=== PATIENT | female | born 1955 | race American Indian/Alaskan Native ===

== ENCOUNTER 2017-02-24 11:11 | Inpatient (IN) | payer MEDICARE ==
[2017-02-24] MEDS ORDERED: NACL 0.9% 500 ML 500 ML ONE (11:17)
[2017-02-24] MEDS ORDERED: LOPRESSOR IV ONE ×2 (11:17→11:28)
[2017-02-24] MEDS ORDERED: CARDIZEM ONE (11:28)
[2017-02-24] MEDS ORDERED: NACL 0.9% 500 ML 500 ML IV ONE ×2 (11:28→13:37)
--- NOTE | 2017-02-24 11:32 | Emergency Department Report ---
ED Palpitations HPI - General Chief Complaint: Chest Pain Stated Complaint: CHEST PAIN Time Seen by Provider: 02/24/17 11:26 Source: patient, EMS Mode of arrival: Stretcher Limitations: No Limitations - History of Present Illness MD Complaint: rapid heart beat, "heart racing", "skipped beats", palpitations, irregular heart beat, atrial fibrillation -: Sudden Context: occured during rest Arrythmia History: atrial fibrillation Associated Symptoms: chest pain, shortness of breath. denies: syncope, near- syncope, nausea/vomiting, anxiety, diaphoresis, cough, parasthesias - Related Data Home Medications Medication Instructions Recorded Confirmed Last Taken Carvedilol [Coreg] 12.5 mg PO BID 10/20/15 02/24/17 Unknown Clopidogrel [Plavix] 75 mg PO QDAY 10/20/15 02/24/17 Unknown Gabapentin [Neurontin] 300 mg PO BID 10/20/15 02/24/17 Unknown Amlodipine Besylate [Norvasc] 10 mg PO DAILY 02/24/17 02/24/17 Unknown Apixaban [Eliquis] 5 mg PO DAILY 02/24/17 02/24/17 Unknown ISOSORBIDE MONOnitrate [Imdur ER] 30 mg PO DAILY 02/24/17 02/24/17 Unknown Lisinopril [Zestril] 5 mg PO QDAY 02/24/17 02/24/17 Unknown Nitroglycerin [Nitrostat] 0.4 mg SL Q5M PRN 02/24/17 02/24/17 Unknown cloNIDine [Catapres] 0.2 mg PO BID 02/24/17 02/24/17 Unknown Allergies Allergy/AdvReac Type Severity Reaction Status Date / Time apple AdvReac Hives Verified 10/31/15 14:57 shell fish Allergy Swelling Uncoded 10/31/15 14:57 ED Review of Systems ROS: Stated complaint: CHEST PAIN Other details as noted in HPI Constitutional: denies: chills, fever Eyes: denies: eye pain, eye discharge, vision change ENT: denies: ear pain, throat pain Respiratory: denies: cough, shortness of breath, wheezing Cardiovascular: denies: chest pain, palpitations Endocrine: no symptoms reported Gastrointestinal: denies: abdominal pain, nausea, diarrhea Genitourinary: denies: urgency, dysuria, discharge Musculoskeletal: denies: back pain, joint swelling, arthralgia Skin: denies: rash, lesions Neurological: denies: headache, weakness, paresthesias Psychiatric: denies: anxiety, depression Hematological/Lymphatic: denies: easy bleeding, easy bruising ED Past Medical Hx - Past Medical History Hx Hypertension: Yes Hx CVA: Yes Hx Heart Attack/AMI: Yes Hx Congestive Heart Failure: Yes Hx Diabetes: Yes Hx Renal Disease: Yes (RENAL INSUFFICIENCY) Hx Psychiatric Treatment: Yes (BIPOLAR/SCHIZOPHRENIA) Hx COPD: Yes Additional medical history: HIGH CHOLESTEROL - Surgical History Hx Coronary Stent: Yes (x 2 in May 2015) Additional Surgical History: stent placement x 2 in 2014 - Social History Smoking Status: Light Tobacco Smoker - Medications Home Medications: Home Medications Medication Instructions Recorded Confirmed Last Taken Type Carvedilol [Coreg] 12.5 mg PO BID 10/20/15 02/24/17 Unknown History Clopidogrel [Plavix] 75 mg PO QDAY 10/20/15 02/24/17 Unknown History Gabapentin [Neurontin] 300 mg PO BID 10/20/15 02/24/17 Unknown History Amlodipine Besylate [Norvasc] 10 mg PO DAILY 02/24/17 02/24/17 Unknown History Apixaban [Eliquis] 5 mg PO DAILY 02/24/17 02/24/17 Unknown History ISOSORBIDE MONOnitrate [Imdur ER] 30 mg PO DAILY 02/24/17 02/24/17 Unknown History Lisinopril [Zestril] 5 mg PO QDAY 02/24/17 02/24/17 Unknown History Nitroglycerin [Nitrostat] 0.4 mg SL Q5M PRN 02/24/17 02/24/17 Unknown History cloNIDine [Catapres] 0.2 mg PO BID 02/24/17 02/24/17 Unknown History ED Physical Exam - General Limitations: No Limitations General appearance: alert, in no apparent distress - Head Head exam: Present: atraumatic, normocephalic - Eye Eye exam: Present: normal appearance - ENT ENT exam: Present: mucous membranes moist - Neck Neck exam: Present: normal inspection - Respiratory Respiratory exam: Present: normal lung sounds bilaterally. Absent: respiratory distress, wheezes, rales, rhonchi, stridor - Cardiovascular Cardiovascular Exam: Present: tachycardia, irregular rhythm. Absent: systolic murmur, diastolic murmur, rubs, gallop - GI/Abdominal GI/Abdominal exam: Present: soft, normal bowel sounds - Extremities Exam Extremities exam: Present: normal inspection - Back Exam Back exam: Present: normal inspection - Neurological Exam Neurological exam: Present: alert, oriented X3 - Psychiatric Psychiatric exam: Present: normal affect, normal mood - Skin Skin exam: Present: warm, dry, intact, normal color. Absent: rash ED Course Vital Signs 02/24/17 02/24/17 02/24/17 11:20 11:27 11:35 Temperature 98.3 F Pulse Rate 140 H 129 H 140 H Respiratory 22 Rate Blood Pressure 110/78 114/81 117/67 Blood Pressure [Left] O2 Sat by Pulse 100 Oximetry 02/24/17 02/24/17 02/24/17 12:00 13:13 13:15 Temperature Pulse Rate 104 H 136 H 124 H Respiratory 18 17 16 Rate Blood Pressure 93/71 Blood Pressure 114/78 [Left] O2 Sat by Pulse 99 99 96 Oximetry 02/24/17 02/24/17 02/24/17 13:21 13:25 13:29 Temperature Pulse Rate 118 H 133 H 143 H Respiratory 19 19 Rate Blood Pressure 96/70 96/70 113/78 Blood Pressure [Left] O2 Sat by Pulse 99 98 Oximetry 02/24/17 13:30 Temperature Pulse Rate 89 Respiratory 22 Rate Blood Pressure 105/69 Blood Pressure [Left] O2 Sat by Pulse 97 Oximetry ED Medical Decision Making - Lab Data Result diagrams: 02/24/17 12:03 - EKG Data Interpretation: other (a-fib with rvr) - Radiology Data Radiology results: report reviewed, image reviewed - Medical Decision Making patient stable after doses of metoprolol and dilt here in the ER, consulted cardiolgoy who are seeing the patient , cbc and coags within normal limits , waiting on chemistry and troponin,. HR now at 90 to 100/min , bp well maintained , Spoke to hospitalist and agree with plan for admission. Critical care time in (mins) excluding proc time.: 35 Critical care attestation.: If time is entered above; I have spent that time in minutes in the direct care of this critically ill patient, excluding procedure time. ED Disposition Clinical Impression: Afib, Hypertension, Acute chest pain Disposition: OP ADMITTED IP TO THIS HOSP Is pt being admited?: Yes Does the pt Need Aspirin: No Condition: Fair Instructions: Hypertension (ED), Chest Pain (ED) Time of Disposition: 14:19
[2017-02-24] MEDS ORDERED: CARDIZEM IV ONE ×2 (11:35→13:29)
[2017-02-24] MEDS ORDERED: ZOFRAN ONE (11:38)
[2017-02-24] MEDS ORDERED: MORPHINE ONE (11:38)
--- NOTE | 2017-02-24 11:39 | XRay Report ---
AP CHEST: HISTORY: Dysrhythmia AP view of the chest demonstrates a normal mediastinal and cardiac contour with clear lungs and normal bony and soft tissue structures. IMPRESSION: Unremarkable AP chest. No change since 10/19/15.
[2017-02-24] MEDS ORDERED: MORPHINE IV ONE (11:50)
[2017-02-24] MEDS ORDERED: ZOFRAN IV ONE (11:50)
[2017-02-24 12:36] LABS: INR 1.29 (0.87-1.13)
[2017-02-24 12:37] LABS: Partial Thromboplastin Time 48.6 Sec. (24.2-36.6)
[2017-02-24 12:49] LABS: Mean Corpuscular HGB Conc 30 % (30-34); Mean Corpuscular Hemoglobin 28 pg (28-32); Mean Corpuscular Volume 94 fl (79-97); Platelet Count 239 K/mm3 (140-440); Red Blood Count 4.41 M/mm3 (3.65-5.03); Red Cell Distribution Width 17.4 % (13.2-15.2); White Blood Count 12.3 K/mm3 (4.5-11.0)
[2017-02-24 12:51] LABS: Hematocrit 41.5 % (30.3-42.9); Hemoglobin 12.5 gm/dl (10.1-14.3)
--- NOTE | 2017-02-24 13:59 | Admit Criteria Form ---
Admission Criteria Documentation: TELEMETRY CARE Telemetry Admission Guidelines (Place 'X' for any and all applicable criteria): Admission to telemetry [A] may be indicated for ANY ONE of the following(1)(2)(3 )(4)(5): [X ]I. Cardiac disease, including ANY ONE of the following (9)(10)(11)(12)( 13): [ ]a) Postacute OK [ ]b) Low-risk patients with ST-segment elevation OK who have undergone successful percutaneous coronary intervention [ ]c) Unstable angina [ ]d) Suspected OK (until it is ruled out) [ ]e) Post cardiac surgery (first 48 to 72 hours unless complications occur) [X ]f) Acute arrhythmias (including significant tachycardia or bradycardia) [B] [ ]g) Firing of an implantable cardioverter defibrillator [C] [ ]h) Suspected pacemaker or implantable cardioverter defibrillator malfunction (10) [ ]i) New administration or adjustment of an antiarrhythmic drug [D ] [ ]j) Child admitted for acute congestive heart failure [ ]j) Long QT syndrome [ ]k) Advanced heart block (eg, second-degree Mobitz type II, third- degree heart block) [ ]l) Acute myocarditis or pericarditis [ ]m) Short-term (ambulatory or inpatient) monitoring after a cardiac procedure as indicated by ANY ONE of the following [E]: [ ]i) Electrophysiologic studies [ ]ii) Percutaneous coronary intervention with stent placement [ ]iii) Pacemaker placement with cardiac conduction defect [ ]iv) Implantable cardiac defibrillator placement [ ]II. Drug overdose or poisoning with substance that causes arrhythmias or QT prolongation (eg, phenothiazines, sympathomimetic agents, cyclic antidepressants, digitalis, antiarrhythmic drugs)(15) [ ]III. Short-term (ambulatory or inpatient) monitoring after therapeutic or diagnostic procedure requiring conscious sedation or anesthesia (eg, endoscopy, elective cardioversion) [ ]IV. Acute cerebrovascular even[F](18) [ ]V. Massive blood transfusion (eg, at least 10 units of packed red blood cells in 24 hours) [ ]. Variceal bleeding after endoscopy, sclerotherapy, or IV vasopressin [ ]VII. Uncorrected electrolyte abnormalities associated with an increased risk of dangerous arrhythmia [G]; examples include [ ]a) Hyperkalemia with attributable ECG changes [ ]b) Potassium greater than 6.5 mmol/L (mEq/L) in a patient without history of chronic renal disease [ ]c) Prolonged QT attributed to hypokalemia, hypomagnesemia, or hypocalcemia [ ]VIII.Unexplained syncope or other neurologic event suspected of being due to arrhythmia due to a finding that increases risk; examples include(19)(20)(21): [ ]a) High-risk ECG findings (eg, bifascicular block, bradycardia, abnormal QT interval, ventricular pre- excitation) [ ]b) History of previous syncope due to arrhythmia [ ]c) Abnormal ventricular function (eg, reduced ejection fraction ) [ ]d) Exertional or supine syncope [ ]e) Concerning syncope characteristics (eg, sudden loss of consciousness without prodrome) [ ]f) Family history of sudden [ ]g) Use of arrhythmogenic medication [ ]h) Suspected cardiac ischemia [ ]i) Known channelopathy (eg, long QT syndrome, Brugada syndrome, or catecholaminergic paroxysmal ventricular tachycardia) [ ]j) Known structural heart disease (eg, hypertrophic cardiomyopathy , severe valvular disease) [ ]k) Palpitations preceding syncope The original [employer] content created by [employer] has been revised. The portions of the content which have been revised are identified through the use of italic text or in bold, and [facility] has neither reviewed nor approved the modified material. All other unmodified content is copyright [employer]. Please see references footnoted in the original [employer] edition 2016 Admission Criteria Met: Yes
--- NOTE | 2017-02-24 14:26 | History and Physical Report ---
History of Present Illness Chief complaint: chest palpitations History of present illness: 61 YO Female with HTN, CVA, OK, CHF, Atrial Fib, DM, CKD, COPD, HLD, Bipolar Disorder, CAD S/P Stent Placement presents to ED for evaluation. Pt states that she has been experienced a "racing heart" today. Pt symptoms accompanied by chest pain and shortness of breath. Pain is 6/10, substernal, nonradiating, not worsened with exertion, or relieved with rest. Pt denies productive cough, leg swelling, calf pain, NVD, syncope, dizziness, or recent ill contacts. Past History Past Medical History: acute OK, atrial fib, CAD, COPD, diabetes, heart failure, hypertension, hyperlipidemia Past Surgical History: Other (stent placement) Social history: , smoking. denies: alcohol abuse, prescription drug abuse, IV drug use Family history: diabetes, hypertension Medications and Allergies Allergies Allergy/AdvReac Type Severity Reaction Status Date / Time apple AdvReac Hives Verified 10/31/15 14:57 shell fish Allergy Swelling Uncoded 10/31/15 14:57 Home Medications Medication Instructions Recorded Confirmed Last Taken Type Carvedilol [Coreg] 12.5 mg PO BID 10/20/15 02/24/17 Unknown History Clopidogrel [Plavix] 75 mg PO QDAY 10/20/15 02/24/17 Unknown History Gabapentin [Neurontin] 300 mg PO BID 10/20/15 02/24/17 Unknown History Amlodipine Besylate [Norvasc] 10 mg PO DAILY 02/24/17 02/24/17 Unknown History Apixaban [Eliquis] 5 mg PO DAILY 02/24/17 02/24/17 Unknown History ISOSORBIDE MONOnitrate [Imdur ER] 30 mg PO DAILY 02/24/17 02/24/17 Unknown History Lisinopril [Zestril] 5 mg PO QDAY 02/24/17 02/24/17 Unknown History Nitroglycerin [Nitrostat] 0.4 mg SL Q5M PRN 02/24/17 02/24/17 Unknown History cloNIDine [Catapres] 0.2 mg PO BID 02/24/17 02/24/17 Unknown History Review of Systems All systems: negative Cardiovascular: palpitations, shortness of breath Exam - Constitutional Vitals: Temp Pulse Resp BP Pulse Ox 98.3 F 89 22 105/69 97 02/24/17 11:27 02/24/17 13:30 02/24/17 13:30 02/24/17 13:30 02/24/17 13:30 General appearance: Present: mild distress, well-nourished - EENT Eyes: Present: PERRL ENT: hearing intact, clear oral mucosa - Neck Neck: Present: supple, normal ROM - Respiratory Respiratory effort: normal Respiratory: bilateral: diminished - Cardiovascular Rhythm: irregularly irregular Heart Sounds: Absent: rub, click - Extremities Extremities: pulses symmetrical, No edema Extremity abnormal: edema Peripheral Pulses: within normal limits - Abdominal General gastrointestinal: Present: soft, non-tender, non-distended, normal bowel sounds Female genitourinary: Present: normal - Integumentary Integumentary: Present: clear, warm, dry - Musculoskeletal Musculoskeletal: gait normal, strength equal bilaterally - Psychiatric Psychiatric: appropriate mood/affect, intact judgment & insight - Neurologic Neurologic: CNII-XII intact, moves all extremities Results - Labs CBC & Chem 7: 02/24/17 12:03 02/24/17 16:12 Labs: Abnormal lab results 02/24/17 02/24/17 Range/Units 12:03 12:03 WBC 12.3 H (4.5-11.0) K/mm3 RDW 17.4 H (13.2-15.2) % PT 16.0 H (12.2-14.9) Sec. INR 1.29 H (0.87-1.13) APTT 48.6 H (24.2-36.6) Sec. D-Dimer 260.88 H (0-234) ng/mlDDU Assessment and Plan - Patient Problems (1) ACS (acute coronary syndrome) Current Visit: Yes Status: Acute Plan to address problem: Cardiology consulted: Chest pain protocol. serial cardiac enzymes, ekg, telemetry monitoring, stress test in AM as per cardiology (2) Atrial fibrillation with rapid ventricular response Current Visit: Yes Status: Acute Plan to address problem: continue current therapy, rate controlled. see dominguez, cardiology team consulted. (3) Hypertension Current Visit: Yes Status: Chronic Qualifiers: Hypertension type: H Plan to address problem: monitor bp q shift, continue current therapy (4) DVT prophylaxis Current Visit: Yes Status: Acute
[2017-02-24] MEDS ORDERED: DULCOLAX PR PRN (14:27)
[2017-02-24] MEDS ORDERED: TYLENOL PO PRN (14:27)
[2017-02-24] MEDS ORDERED: DUONEB 0.5 MG-3 MG/3 ML SOLN IH PRN (14:27)
[2017-02-24] MEDS ORDERED: ZOFRAN IV PRN (14:27)
[2017-02-24] MEDS ORDERED: MILK OF MAGNESIA PO PRN (14:27)
[2017-02-24] MEDS ORDERED: NITROSTAT SL PRN (14:35)
--- NOTE | 2017-02-24 14:51 | Consultation ---
History of Present Illness Consult date: 02/24/17 Consult reason: chest pain History of present illness: This is a 61yr old woman visiting from [place] who presents to the ED with complaints of chest pain. Patient gives a history of coronary artery disease status post coronary intervention 3 months ago. She has a history of atrial fibrillation and is on eliquis for oral anticoagulation. Patient also continues to smoke. Her presenting ECG shows atrial fibrillation with rapid ventricular response. Initial set of cardiac enzymes are normal. Patient admitted to the hospital and a cardiac consultation requested for chest pain. Past History Past Medical History: atrial fib, CAD, hypertension Medications and Allergies Allergies Allergy/AdvReac Type Severity Reaction Status Date / Time apple AdvReac Hives Verified 10/31/15 14:57 shell fish Allergy Swelling Uncoded 10/31/15 14:57 Home Medications Medication Instructions Recorded Confirmed Last Taken Type Carvedilol [Coreg] 12.5 mg PO BID 10/20/15 02/24/17 Unknown History Clopidogrel [Plavix] 75 mg PO QDAY 10/20/15 02/24/17 Unknown History Gabapentin [Neurontin] 300 mg PO BID 10/20/15 02/24/17 Unknown History Amlodipine Besylate [Norvasc] 10 mg PO DAILY 02/24/17 02/24/17 Unknown History Apixaban [Eliquis] 5 mg PO DAILY 02/24/17 02/24/17 Unknown History ISOSORBIDE MONOnitrate [Imdur ER] 30 mg PO DAILY 02/24/17 02/24/17 Unknown History Lisinopril [Zestril] 5 mg PO QDAY 02/24/17 02/24/17 Unknown History Nitroglycerin [Nitrostat] 0.4 mg SL Q5M PRN 02/24/17 02/24/17 Unknown History cloNIDine [Catapres] 0.2 mg PO BID 02/24/17 02/24/17 Unknown History Active Meds: Active Medications Acetaminophen (Tylenol) 650 mg PO Q4H PRN PRN Reason: Pain MILD(1-3)/Fever >100.5/SILVA Albuterol/Ipratropium (Duoneb 0.5 Mg-3 Mg/3 Ml Soln) 1 ampul IH Q6HRT PRN PRN Reason: Wheezing Apixaban (Eliquis) 5 mg PO DAILY CHRISTEL PRN Reason: Protocol Bisacodyl (Dulcolax) 10 mg HI QDAY PRN PRN Reason: Constipation unrelieved by MOM Carvedilol (Coreg) 12.5 mg PO BID CHRISTEL Clonidine HCl (Catapres) 0.2 mg PO BID CHRISTEL Clopidogrel Bisulfate (Plavix) 75 mg PO QDAY CHRISTEL Gabapentin (Neurontin) 300 mg PO BID CHRISTEL Isosorbide Mononitrate (Imdur) 30 mg PO DAILY CHRISTEL Lisinopril (Zestril) 5 mg PO QDAY CHRISTEL Magnesium Hydroxide (Milk Of Magnesia) 30 ml PO Q4H PRN PRN Reason: Constipation Miscellaneous Medication (Amlodipine Besylate [Norvasc]) 10 mg PO DAILY CHRISTEL Nitroglycerin (Nitrostat) 0.4 mg SL Q5M PRN PRN Reason: Chest Pain Ondansetron HCl (Zofran) 4 mg IV Q8H PRN PRN Reason: N/V unrelieved by Reglan Physical Examination Vital Signs Pulse BP 140 H 110/78 02/24/17 11:20 02/24/17 11:20 General appearance: no acute distress HEENT: Positive: PERRL Neck: Positive: trachea midline Cardiac: Positive: irregularly irregular Results 02/24/17 12:03 02/24/17 12:03 Coagulation 02/24/17 Range/Units 12:03 PT 16.0 H (12.2-14.9) Sec. INR 1.29 H (0.87-1.13) APTT 48.6 H (24.2-36.6) Sec. CBC 02/24/17 Range/Units 12:03 WBC 12.3 H (4.5-11.0) K/mm3 RBC 4.41 (3.65-5.03) M/mm3 Hgb 12.5 (10.1-14.3) gm/dl Hct 41.5 (30.3-42.9) % Plt Count 239 (140-440) K/mm3 Lymph # Cash Management Clerk Garrett # Cash Management Clerk Eos # Cash Management Clerk Baso # Cash Management Clerk EKG interpretations - EKG Supraventricular dysrhythmia: atrial fibrillation Assessment and Plan Chest pain Persistent Afib on eliquis for anticoagulation as an outpatient Hx of CAD s/p recent PCI on plavix therapy Hypertension Tobacco abuse
[2017-02-24 15:22] LABS: Alanine Aminotransferase 8 units/L (7-56); Albumin 3.4 g/dL (3.9-5); Albumin/Globulin Ratio 1.2 %; Alkaline Phosphatase 53 units/L (35-129); Anion Gap 26 mmol/L; BUN/Creatinine Ratio 14.61; Bilirubin,Total 0.6 mg/dL (0.1-1.2); Blood Urea Nitrogen 19 mg/dL (7-17); Carbon Dioxide 11 mmol/L (22-30); Chloride 107.2 mmol/L (98-107); Creatine Kinase 127 units/L (30-135); Creatine Kinase MB 2.2 ng/mL (0.0-4.0); Glucose 122 mg/dL (65-100); Magnesium 1.6 mg/dL (1.7-2.3); Potassium 3.7 mmol/L (3.6-5.0); Sodium 140 mmol/L (137-145); Total Protein 6.3 g/dL (6.3-8.2)
[2017-02-24 16:46] LABS: BUN/Creatinine Ratio 15.38; Calcium 8.6 mg/dL (8.4-10.2); Chloride 109.4 mmol/L (98-107); Potassium 3.2 mmol/L (3.6-5.0)
[2017-02-24] MEDS ORDERED: SODIUM CHLORIDE FLUSH SYRINGE 10 ML IV PRN (19:55)
[2017-02-24] MEDS ORDERED: PROVENTIL IH PRN (20:00)
[2017-02-24] MEDS: CATAPRES PO SCH (21:28)
[2017-02-24] MEDS: NEURONTIN PO SCH (21:28)
[2017-02-24] MEDS: COREG PO SCH (21:28)
[2017-02-24 23:10] LABS: Creatine Kinase MB 3.4 ng/mL (0.0-4.0)
[2017-02-24 23:13] LABS: Creatine Kinase 443 units/L (30-135)
[2017-02-25] MEDS: CARDIZEM PO SCH ×3 (02:28→11:55)
[2017-02-25] MEDS: MORPHINE IV PRN ×2 (05:52→11:45)
[2017-02-25] MEDS ORDERED: MAGNESIUM SULFATE IV ONE (09:19)
--- NOTE | 2017-02-25 09:23 | Discharge Summary ---
Providers - Providers Date of Admission: 02/24/17 14:27 Date of discharge: 02/25/17 Attending physician: ELIEL BRODY MD 02/24/17 Consult to Cardiac Rehabilitation [CONS] Routine Reason For Exam: Phase I Primary care physician: COMPUTER SECURITY COORDINATOR Hospitalization Reason for admission: chest pain Condition: Stable Hospital course: 61 YO Female with HTN, CVA, DC, CHF, Atrial Fib, DM, CKD, COPD, HLD, Bipolar Disorder, CAD S/P Stent Placement presents to ED for evaluation. Pt states that she has been experienced a "racing heart" today. Pt symptoms accompanied by chest pain and shortness of breath. Pain is 6/10, substernal, nonradiating, not worsened with exertion, or relieved with rest. Pt denies productive cough, leg swelling, calf pain, NVD, syncope, dizziness, or recent ill contacts. For full evaluation of the patient the patient wants a stress test which was unremarkable. Cardiology recommended medical therapy for CAD including dual oral antiplatelet platelet medication. I did also discuss the patient she states she's been having a chronic pain in her chest wall area that has been ongoing for months and this reproducible. She denies any association of shortness of breath at this time. I did provide about 15 minutes of counseling to the patient the need to quit tobacco use she verbalizes that she has cut down from 4 packs a day to 3 cigarettes daily encouraged her to continue on that pathway totally quit considered history. Discharge diagnosis * Atypical chest pain likely secondary to costochondritis * CAD * Atrial fibrillation with rapid ventricular response * Mild protein caloric malnutrition * Hypertension * Tobacco abuse * Hypokalemia * CKD * COPD * Bipolar disorder Disposition: DISCHARGED TO HOME OR SELFCARE Time spent for discharge: 35 mins Core Measure Documentation - Palliative Care Palliative Care/ Comfort Measures: Not Applicable - Core Measures Any of the following diagnoses?: none - VTE Discharge Requirements Deep Vein Thrombosis/Pulmonary Embolism Present on Admission: No Exam - Physical Exam Narrative exam: VITAL SIGNS: Reviewed. GENERAL: The patient appeared well nourished and normally developed. Vital signs as documented. HEAD: No signs of head trauma. EYES: Pupils are equal. Extraocular motions intact. EARS: Hearing grossly intact. MOUTH: Oropharynx is normal. NECK: No adenopathy, no JVD. CHEST: Chest with clear breath sounds bilaterally. No wheezes, rales, or rhonchi. CARDIAC: Regular rate and rhythm. S1 and S2, without murmurs, gallops, or rubs. VASCULAR: No Edema. Peripheral pulses normal and equal in all extremities. ABDOMEN: Soft, without detectable tenderness. No sign of distention. No rebound or guarding, and no masses palpated. Bowel Sounds normal. MUSCULOSKELETAL: Good range of motion of all major joints. Extremities without clubbing, cyanosis or edema. NEUROLOGIC EXAM: Alert and oriented x 3. No focal sensory or strength deficits. Speech normal. Follows commands. PSYCHIATRIC: Mood normal. SKIN: No rash or lesions. - Constitutional Vitals: Temp Pulse Resp BP Pulse Ox 98.2 F 49 L 18 110/64 99 02/25/17 05:17 02/25/17 08:07 02/25/17 05:17 02/25/17 05:17 02/25/17 05:17 Plan Activity: advance as tolerated, fall precautions Diet: low salt Special Instructions: record daily weights, record daily BP diary Follow up with: [facility] [Provider Group] - 7 Days PRIMARY [facility]ARE, [Primary Care Provider] - 3-5 Days Prescriptions: amLODIPine [Norvasc] 10 mg PO DAILY #30 tablet Diltiazem [Cardizem] 30 mg PO Q6HR #90 tablet
[2017-02-25] MEDS ORDERED: PLAVIX PO SCH (10:00)
[2017-02-25] MEDS ORDERED: MAGNESIUM SULFATE 2GM/50ML 2 GM/50 ML BAG IV ONE (10:00)
[2017-02-25] MEDS ORDERED: NON-FORMULARY (Amlodipine Besylate [Norvasc] 10 MG) PO SCH (10:00)
[2017-02-25] MEDS ORDERED: ELIQUIS PO SCH ×2 (10:00→12:00)
[2017-02-25] MEDS ORDERED: NORVASC PO SCH (10:00)
[2017-02-25] MEDS ORDERED: ZESTRIL PO SCH (10:00)
[2017-02-25] MEDS ORDERED: IMDUR PO SCH (10:00)
[2017-02-25] MEDS ORDERED: LEXISCAN IV ONE (10:00)
[2017-02-25] MEDS ORDERED: K-DUR PO ONE (10:00)
--- NOTE | 2017-02-25 10:22 | Query- Chest Pain ---
Dealucien Hughes____Jaimie Date: 02/25/17 Aircraft Launch And Recovery Technician/CDS:____Caleb Willskatarzyna Phone#:____[phone] Exercise your independent professional judgment when responding to query. Questions asked do not imply a particular answer is desired or expected. We greatly appreciate your clarification on this issue. Clinical Documentation States: 61 year old female was admitted on 02/24/17. The cadiology consult note states" Consult reason: chest pain. Assessment and Plan Chest pain Persistent Afib on eliquis for anticoagulation as an outpatient Hx of CAD s/p recent PCI on plavix therapy Hypertension Tobacco abuse. Rule out AR protocol, followed by a Persantin thallium stress test for further assessment of coronary artery disease and chest pain. " The H&P states " Assessment and Plan - Patient Problems (1) ACS (acute coronary syndrome) Current Visit: Yes Status: Acute Plan to address problem: Cardiology consulted: Chest pain protocol. serial cardiac enzymes, ekg, telemetry monitoring, stress test in AM as per cardiology (2) Atrial fibrillation with rapid ventricular response Current Visit: Yes Status: Acute Plan to address problem: continue current therapy, rate controlled. see dominguez, cardiology team consulted. " Please document the etiology of Chest Pain: [ ] Myocardial Infarction [ ] Pneumonia [ ] Mediastinitis [X ] Costochondritis [ ] Pulmonary Embolism [ ] Coronary Artery Disease [ ] GERD [ ] Other: [ ] Comment/Explanation: Present on Admission: [ Y] Yes (Y) [ ] Clinically undeterminable (W) [ ] No(N) Please document response in your Progress Notes and/or Discharge Summary and indicate if the condition was present on admission. MTDD
[2017-02-25] MEDS: COREG PO SCH (11:44)
[2017-02-25] MEDS: NEURONTIN PO SCH (11:44)
[2017-02-25] MEDS: CATAPRES PO SCH (11:44)
[2017-02-25 12:20] VITALS: BP 139/78
--- NOTE | 2017-02-25 14:08 | Progress Note ---
Assessment and Plan Medical therapy for coronary artery disease including dual oral antiplatelet therapy. Medical therapy for her despite atrial fibrillation including oral anticoagulation therapy. Subjective Date of service: 02/25/17 Interval history: Patient underwent a Persantine thallium stress test today, normal myocardial perfusion study. There is no further chest pain, no shortness of breath and no palpitations. Objective Vital Signs Temp Pulse Pulse Resp BP BP Pulse Ox 02/25/17 10:47 75 139/78 02/25/17 10:46 76 139/78 02/25/17 10:45 76 141/76 02/25/17 10:44 82 121/74 02/25/17 10:43 72 151/78 02/25/17 10:04 50 L 142/79 02/25/17 08:07 49 L 02/25/17 07:30 98.0 F 52 L 18 127/74 98 02/25/17 05:17 98.2 F 56 L 18 110/64 99 02/25/17 04:00 52 L 02/25/17 00:24 97.6 F 66 20 121/68 97 02/24/17 21:21 98 02/24/17 20:13 98.9 F 65 18 116/86 99 02/24/17 17:05 99.2 F 72 72 H 109/75 97 02/24/17 16:02 132 H 02/24/17 15:25 132 H 18 103/67 99 02/24/17 15:21 103 H 18 103/67 99 02/24/17 15:15 137 H 15 103/67 98 02/24/17 15:11 112 H 17 103/67 98 02/24/17 15:05 118 H 18 103/67 98 02/24/17 15:00 128 H 33 H 103/67 97 02/24/17 14:55 126 H 26 H 110/73 99 02/24/17 14:50 116 H 20 110/73 99 02/24/17 14:45 108 H 16 110/73 100 02/24/17 14:41 113 H 21 110/73 99 02/24/17 14:35 117 H 13 110/73 98 02/24/17 14:30 106 H 16 110/73 - Physical Examination General: No Apparent Distress HEENT: Positive: PERRL Neck: Positive: trachea midline Cardiac: Positive: irregularly irregular Lungs: Positive: Decreased Breath Sounds Neuro: Positive: Grossly Intact Abdomen: Positive: Soft Skin: Positive: Clear Extremities: Absent: edema - Labs and Meds Cardiac Enzymes 02/24/17 02/25/17 Range/Units 23:00 02:18 CK-MB (CK-2) 3.4 3.0 (0.0-4.0) ng/mL Comprehensive Metabolic Panel 02/24/17 Range/Units 16:12 Sodium 143 (137-145) mmol/L Potassium 3.2 L (3.6-5.0) mmol/L Chloride 109.4 H (98-107) mmol/L Carbon Dioxide 20 L D (22-30) mmol/L BUN 20 H (7-17) mg/dL Creatinine 1.3 H (0.7-1.2) mg/dL Glucose 149 H (65-100) mg/dL Calcium 8.6 (8.4-10.2) mg/dL
--- NOTE | 2017-02-26 01:54 | Treadmill Report ---
THALLIUM STRESS TEST LEFT VENTRICLE: Left ventricular chamber size is within normal. Perfusion study demonstrates homogeneous uptake of the tracer in all segments. No significant defects identified. Gated analysis was not available. CONCLUSION: Normal myocardial perfusion study. [facility]# [id number] CA/NTS
== END 2017-02-25 15:26 | disposition home or self-care (01) | DRG 206 ==
LOC: ED 11:11 → 4A 14:27
PROVIDERS: ADMIT Internal Medicine; ATTEND Internal Medicine
DX: M94.0 Chondrocostal junction syndrome [Tietze] (principal); I24.9 Acute ischemic heart disease, unspecified; E44.1 Mild protein-calorie malnutrition; F31.9 Bipolar disorder, unspecified; J44.9 Chronic obstructive pulmonary disease, unspecified; F17.200 Nicotine dependence, unspecified, uncomplicated; I48.91 Unspecified atrial fibrillation; I12.9 Hypertensive chronic kidney disease with stage 1 through stage 4 chronic kidney disease, or unspecified chronic kidney disease; N18.9 Chronic kidney disease, unspecified; I25.10 Atherosclerotic heart disease of native coronary artery without angina pectoris; E11.22 Type 2 diabetes mellitus with diabetic chronic kidney disease; I25.2 Old myocardial infarction; Z91.013 Allergy to seafood; Z91.018 Allergy to other foods; Z86.73 Personal history of transient ischemic attack (TIA), and cerebral infarction without residual deficits; Z98.61 Coronary angioplasty status; Z83.3 Family history of diabetes mellitus; Z82.49 Family history of ischemic heart disease and other diseases of the circulatory system; Z68.27 Body mass index [BMI] 27.0-27.9, adult; Z71.6 Tobacco abuse counseling
CPT/HCPCS: 36415; 71010; 78452; 80048; 80053; 82550; 82553; 82962; 83735; 84443; 84484; 85025; 85379; 85610; 85730; 93005; 93010; 93017; 96361; 96374; 96375; 96376; 99291; A9502; J2270; J2405; J2785; J3475; J7040

== ENCOUNTER 2017-08-01 13:01 | Inpatient (IN) | payer MEDICARE ==
[2017-08-01] MEDS ORDERED: NITRO-BID 2% TP ONE ×2 (13:19→13:41)
[2017-08-01] MEDS ORDERED: NORMODYNE IV ONE (13:40)
[2017-08-01] MEDS ORDERED: ZOFRAN IV ONE (13:51)
[2017-08-01] MEDS ORDERED: MORPHINE IV ONE (13:51)
[2017-08-01 14:13] LABS: Basophils % (Auto) 0.5 % (0.0-1.8); Eosinophils % (Auto) 2.5 % (0.0-4.3); Hematocrit 36.8 % (30.3-42.9); Hemoglobin 11.7 gm/dl (10.1-14.3); Mean Corpuscular HGB Conc 32 % (30-34); Mean Corpuscular Hemoglobin 28 pg (28-32); Mean Corpuscular Volume 87 fl (79-97); Platelet Count 296 K/mm3 (140-440); Red Blood Count 4.23 M/mm3 (3.65-5.03); Red Cell Distribution Width 16.1 % (13.2-15.2); White Blood Count 15.5 K/mm3 (4.5-11.0)
--- NOTE | 2017-08-01 14:25 | XRay Report ---
CHEST ONE VIEW INDICATION: Hypertension. COMPARISON: 02/24/2017. FINDINGS: Portable, single, frontal chest radiograph demonstrates normal cardiomediastinal silhouette. Clear lungs. Unremarkable bones. Extrinsic EKG leads. CONCLUSION: No acute disease in the chest. Thank you for the opportunity to participate in this patient's care.
[2017-08-01 14:26] LABS: Anion Gap 18 mmol/L; BUN/Creatinine Ratio 18.46; Blood Urea Nitrogen 24 mg/dL (7-17); Calcium 9.3 mg/dL (8.4-10.2); Carbon Dioxide 22 mmol/L (22-30); Chloride 104.2 mmol/L (98-107); Glucose 81 mg/dL (65-100); Potassium 3.9 mmol/L (3.6-5.0); Sodium 140 mmol/L (137-145)
--- NOTE | 2017-08-01 14:35 | Emergency Department Report ---
ED Chest Pain HPI - General Chief Complaint: Chest Pain Stated Complaint: CHEST PAIN Time Seen by Provider: 08/01/17 13:33 Source: patient, EMS Mode of arrival: Stretcher Limitations: No Limitations - History of Present Illness Initial Comments: Patient is a very poor historian. She states that she has no local physician and that she is not from this area. Despite this apparently probably unreliable information, she states that she was just admitted to [facility] for chest pain. She states that she "can't remember" if she had a cardiac catheterization or not. She was actually admitted here in February 2017. At that time she had a nuclear perfusion scan that was read by Dr. Steele as normal. The patient states that she is from [place] and just visiting relatives here. This seems quite dubious considering her multiple admissions at this facility and recent admission to [facility]. In any case she said that she had a stent placed [facility] approximately last November. Patient states that she took 3 nitroglycerin for her chest pain prior to calling EMS. She claims that she has been compliant with her antihypertensive regimen. However she arrives with severely uncontrolled hypertension. She complains of associated nausea and shortness of breath. MD Complaint: chest pain -: hour(s) Onset: during rest Pain Location: substernal Severity scale (0 -10): 8 Quality: tightness Consistency: constant Improves With: nothing Worsens With: nothing Context: other (history of PCI) re: nausea, dyspnea Other Symptoms: denies: cough, fever, syncope Treatments Prior to Arrival: none Aspirin use within the Past 7 Days: (0) No (patient states that she is not taking Plavix although her reconciliation list this as above) - Related Data Home Medications Medication Instructions Recorded Confirmed Last Taken Carvedilol [Coreg] 12.5 mg PO BID 10/20/15 02/24/17 Unknown Clopidogrel [Plavix] 75 mg PO QDAY 10/20/15 02/24/17 Unknown Gabapentin [Neurontin] 300 mg PO BID 10/20/15 02/24/17 Unknown Apixaban [Eliquis] 5 mg PO DAILY 02/24/17 02/24/17 Unknown ISOSORBIDE MONOnitrate [Imdur ER] 30 mg PO DAILY 02/24/17 02/24/17 Unknown Lisinopril [Zestril TAB] 5 mg PO QDAY 02/24/17 02/24/17 Unknown Nitroglycerin [Nitrostat] 0.4 mg SL Q5M PRN 02/24/17 02/24/17 Unknown cloNIDine [Catapres] 0.2 mg PO BID 02/24/17 02/24/17 Unknown Previous Rx's Medication Instructions Recorded Last Taken Type Diltiazem [Cardizem] 30 mg PO Q6HR #90 tablet 02/25/17 Unknown Rx amLODIPine [Norvasc] 10 mg PO DAILY #30 tablet 02/25/17 Unknown Rx Allergies Allergy/AdvReac Type Severity Reaction Status Date / Time apple AdvReac Hives Verified 08/01/17 13:02 shell fish Allergy Swelling Uncoded 08/01/17 13:02 Heart Score - HEART Score History: Moderately suspicious EKG: Non-specific Age: 45-65 Risk factors: > 3 risk factors or hx of atherosclerotic disease Troponin: < normal limit HEART Score: 5 - Critical Actions Critical Actions: 4-6 pts:12-16.6% risk of adverse cardiac event. Should be admitted ED Review of Systems ROS: Stated complaint: CHEST PAIN Other details as noted in HPI Constitutional: denies: chills, fever Eyes: denies: eye pain, eye discharge, vision change ENT: denies: ear pain, throat pain Respiratory: shortness of breath. denies: cough, wheezing Cardiovascular: chest pain. denies: palpitations Endocrine: no symptoms reported Gastrointestinal: nausea. denies: abdominal pain, diarrhea Genitourinary: denies: urgency, dysuria, discharge Musculoskeletal: denies: back pain, joint swelling, arthralgia Skin: denies: rash, lesions Neurological: denies: headache, weakness, paresthesias Psychiatric: denies: anxiety, depression Hematological/Lymphatic: denies: easy bleeding, easy bruising ED Past Medical Hx - Past Medical History Previous Medical History?: Yes Hx Hypertension: Yes Hx CVA: Yes Hx Heart Attack/AMI: Yes Hx Congestive Heart Failure: Yes Hx Diabetes: Yes Hx Renal Disease: Yes (RENAL INSUFFICIENCY) Hx Psychiatric Treatment: Yes (BIPOLAR/SCHIZOPHRENIA) Hx COPD: Yes Additional medical history: HIGH CHOLESTEROL - Surgical History Hx Coronary Stent: Yes (x 2 in May 2015) Additional Surgical History: stent placement x 2 in 2014 - Social History Smoking Status: Current Every Day Smoker Substance Use Type: None - Medications Home Medications: Home Medications Medication Instructions Recorded Confirmed Last Taken Type Carvedilol [Coreg] 12.5 mg PO BID 10/20/15 02/24/17 Unknown History Clopidogrel [Plavix] 75 mg PO QDAY 10/20/15 02/24/17 Unknown History Gabapentin [Neurontin] 300 mg PO BID 10/20/15 02/24/17 Unknown History Apixaban [Eliquis] 5 mg PO DAILY 02/24/17 02/24/17 Unknown History ISOSORBIDE MONOnitrate [Imdur ER] 30 mg PO DAILY 02/24/17 02/24/17 Unknown History Lisinopril [Zestril TAB] 5 mg PO QDAY 02/24/17 02/24/17 Unknown History Nitroglycerin [Nitrostat] 0.4 mg SL Q5M PRN 02/24/17 02/24/17 Unknown History cloNIDine [Catapres] 0.2 mg PO BID 02/24/17 02/24/17 Unknown History Diltiazem [Cardizem] 30 mg PO Q6HR #90 tablet 02/25/17 Unknown Rx amLODIPine [Norvasc] 10 mg PO DAILY #30 tablet 02/25/17 Unknown Rx ED Physical Exam - General Limitations: No Limitations General appearance: alert, in no apparent distress - Head Head exam: Present: atraumatic, normocephalic - Eye Eye exam: Present: normal appearance. Absent: scleral icterus - ENT ENT exam: Present: mucous membranes moist - Neck Neck exam: Present: normal inspection - Respiratory Respiratory exam: Present: normal lung sounds bilaterally. Absent: respiratory distress - Cardiovascular Cardiovascular Exam: Present: regular rate, normal rhythm. Absent: systolic murmur, diastolic murmur, rubs, gallop - GI/Abdominal GI/Abdominal exam: Present: soft, normal bowel sounds. Absent: distended, tenderness, guarding, rebound, rigid - Extremities Exam Extremities exam: Present: normal inspection - Back Exam Back exam: Present: normal inspection - Neurological Exam Neurological exam: Present: alert, oriented X3, CN II-XII intact. Absent: motor sensory deficit - Psychiatric Psychiatric exam: Present: normal affect, normal mood - Skin Skin exam: Present: warm, dry, intact, normal color. Absent: rash - Other Other exam information: Family and posterior tibial pulses are 2+ and 2+ symmetrically ED Course Vital Signs 08/01/17 08/01/17 08/01/17 13:20 14:01 14:02 Pulse Rate 88 Respiratory 20 Rate Blood Pressure 189/119 189/110 - Reevaluation(s) Reevaluation #1: Patient was given Nitropaste, labetalol. She will be admitted by Dr. Henning to the hospitalist service. I requested the discharge summary from [facility]. 08/01/17 14:46 BLAS score - Blas Score Age > 65: (0) No Aspirin use within the Past 7 Days: (0) No 3 or more CAD Risk Factors: (1) Yes 2 or more Angina events in past 24 hrs: (0) No Known CAD with more than 50% Stenosis: (1) Yes Elevated Cardiac Markers: (0) No ST Deviation Greater than 0.5mm: (0) No BLAS Score: 2 ED Medical Decision Making - Lab Data Result diagrams: 08/01/17 13:05 08/01/17 13:05 Laboratory Results - last 24 hr 08/01/17 08/01/17 13:05 13:05 WBC 15.5 H RBC 4.23 Hgb 11.7 Hct 36.8 MCV 87 MCH 28 MCHC 32 RDW 16.1 H Plt Count 296 Lymph % (Auto) 17.0 [place] % (Auto) 5.4 Eos % (Auto) 2.5 Baso % (Auto) 0.5 Lymph # 2.6 [place] # 0.8 Eos # 0.4 Baso # 0.1 Seg Neutrophils % 74.6 H Seg Neutrophils # 11.6 H Sodium 140 Potassium 3.9 Chloride 104.2 Carbon Dioxide 22 Anion Gap 18 BUN 24 H Creatinine 1.3 H Estimated GFR 50 BUN/Creatinine Ratio 18.46 Glucose 81 Calcium 9.3 Troponin T < 0.010 - EKG Data -: EKG Interpreted by Me EKG shows normal: sinus rhythm, axis, intervals, QRS complexes, ST-T waves Rate: normal - EKG Data Interpretation: no acute changes, nonspecific ST-T wave north (mild) - Radiology Data interpreted by me: Chest x-ray shows no acute process Critical care attestation.: If time is entered above; I have spent that time in minutes in the direct care of this critically ill patient, excluding procedure time. ED Disposition Clinical Impression: Uncontrolled hypertension Chest pain Qualifiers: Chest pain type: unspecified Qualified Code(s): R07.9 - Chest pain, unspecified Disposition: DC-09 OP ADMIT IP TO THIS HOSP Is pt being admited?: Yes Does the pt Need Aspirin: Yes Condition: Stable Instructions: Hypertension (ED), Chest Pain (ED) Referrals: PRIMARY CARE,MD [Primary Care Provider] - 3-5 Days
[2017-08-01] MEDS ORDERED: BABY ASPIRIN PO ONE (14:49)
[2017-08-01 15:02] LABS: Alanine Aminotransferase 10 units/L (7-56); Albumin 3.9 g/dL (3.9-5); Albumin/Globulin Ratio 1.3 %; Alkaline Phosphatase 67 units/L (35-129); Total Protein 6.9 g/dL (6.3-8.2)
[2017-08-01 15:06] LABS: Bilirubin,Direct < 0.2 mg/dL (0-0.2); Bilirubin,Indirect 0.2 mg/dL
[2017-08-01 15:06] LABS: INR 1.05 (0.87-1.13)
[2017-08-01 15:07] LABS: Partial Thromboplastin Time 40.3 Sec. (24.2-36.6)
[2017-08-01 17:09] LABS: Urine Drugs of Abuse Note Disclamer
[2017-08-01 17:59] LABS: Bilirubin,Urine NEG (Negative); Blood,Urine NEG (Negative); Ketones,Urine NEG (Negative); Leukocyte Esterase,Urine NEG (Negative); Mucus,Urine FEW /HPF; Nitrite,Urine NEG (Negative); Protein,Urine <15 mg/dL mg/dL (Negative); Urobilinogen,Urine < 2.0 mg/dL (<2.0)
[2017-08-01] MEDS ORDERED: PROAIR IH PRN (21:03)
[2017-08-01] MEDS ORDERED: DULCOLAX PR PRN (21:04)
[2017-08-01] MEDS ORDERED: TYLENOL PO PRN (21:04)
[2017-08-01] MEDS ORDERED: MILK OF MAGNESIA PO PRN (21:04)
[2017-08-01] MEDS ORDERED: ZOFRAN IV PRN (21:04)
--- NOTE | 2017-08-01 21:07 | History and Physical Report ---
History of Present Illness Date of examination: 08/01/17 Date of admission: 08/01/17 15:14 Chief complaint: CC Chest pain 1 day History of present illness: 62 y/o female a very poor historian comes in for RSCP.Non radiating.Had Stress test in February 2017 in [facility] and was negative.Apparently admitted to [facility] 1 week ago and had w/u for chest pain/.Not clear whrether she had cath.Stress was negative.No SOB.No exacerbating or relieving factors.No Diaphoresis.No palpitations.No recent travel.Pain is 5/10 dull in character. Past History Past Medical History: CAD, hypertension, hyperlipidemia Past Surgical History: PTCA (Srtent x1 in Nov 2016) Social history: no significant social history, full code Family history: CAD, hypertension Medications and Allergies Allergies Allergy/AdvReac Type Severity Reaction Status Date / Time apple AdvReac Hives Verified 08/01/17 13:02 shell fish Allergy Swelling Uncoded 08/01/17 13:02 Home Medications Medication Instructions Recorded Confirmed Last Taken Type Clopidogrel [Plavix] 75 mg PO QDAY 10/20/15 08/01/17 08/01/17 History Apixaban [Eliquis] 5 mg PO DAILY 02/24/17 08/01/17 08/01/17 History Nitroglycerin [Nitrostat] 0.4 mg SL Q5M PRN 02/24/17 08/01/17 Unknown History amLODIPine [Norvasc] 10 mg PO DAILY #30 tablet 02/25/17 08/01/17 08/01/17 Rx ALBUTEROL Inhaler [Proair] 2 puff IH QID PRN 08/01/17 08/01/17 08/01/17 History AtorvaSTATin [Lipitor] 80 mg PO QHS 08/01/17 08/01/17 07/31/17 History Carvedilol [Coreg] 25 mg PO BID 08/01/17 08/01/17 08/01/17 History Quetiapine Fumarate [Seroquel] 100 mg PO BID 08/01/17 08/01/17 08/01/17 History hydrALAZINE [Apresoline] 25 mg PO Q8HR 08/01/17 08/01/17 08/01/17 History Active Meds: Active Medications Acetaminophen (Tylenol) 650 mg PO Q4H PRN PRN Reason: Pain MILD(1-3)/Fever >100.5/SILVA Albuterol (Proair) 2 puff IH QID PRN PRN Reason: Shortness Of Breath Amlodipine Besylate (Norvasc) 10 mg PO DAILY CHRSITEL Apixaban (Eliquis) 5 mg PO DAILY CHRISTEL PRN Reason: Protocol Atorvastatin Calcium (Lipitor) 80 mg PO QHS CHRISTEL Bisacodyl (Dulcolax) 10 mg [place] QDAY PRN PRN Reason: Constipation unrelieved by MOM Carvedilol (Coreg) 25 mg PO BID CHRISTEL Famotidine (Pepcid) 20 mg PO BID CHRISTEL Hydralazine HCl (Apresoline) 25 mg PO Q8HR CHRISTEL Hydromorphone HCl (Dilaudid) 1 mg IV Q3H PRN PRN Reason: Pain , Severe (7-10) Magnesium Hydroxide (Milk Of Magnesia) 30 ml PO Q4H PRN PRN Reason: Constipation Nitroglycerin (Nitrostat) 0.4 mg SL Q5M PRN PRN Reason: Chest Pain Ondansetron HCl (Zofran) 4 mg IV Q8H PRN PRN Reason: N/V unrelieved by Reglan Oxycodone/Acetaminophen (Percocet 5/325) 1 tab PO Q6H PRN PRN Reason: Pain, Moderate (4-6) Quetiapine Fumarate (Seroquel) 100 mg PO BID CHRISTEL Review of Systems All systems: negative Exam - Constitutional Vitals: Temp Pulse Resp BP Pulse Ox 98.1 F 88 18 182/111 97 08/01/17 19:52 08/01/17 19:52 08/01/17 19:52 08/01/17 19:52 08/01/17 19:52 General appearance: Present: no acute distress, well-nourished - EENT Eyes: Present: PERRL ENT: hearing intact, clear oral mucosa - Neck Neck: Present: supple, normal ROM - Respiratory Respiratory effort: normal Respiratory: bilateral: CTA - Cardiovascular Heart rate: 80 Rhythm: regular Heart Sounds: Present: S1 & S2. Absent: rub, click - Extremities Extremities: pulses symmetrical, No edema Peripheral Pulses: within normal limits - Abdominal General gastrointestinal: Present: soft, non-tender, non-distended, normal bowel sounds Female genitourinary: Present: normal - Integumentary Integumentary: Present: clear, warm, dry - Musculoskeletal Musculoskeletal: gait normal, strength equal bilaterally - Psychiatric Psychiatric: appropriate mood/affect, intact judgment & insight - Neurologic Neurologic: CNII-XII intact, moves all extremities Results - Labs CBC & Chem 7: 08/02/17 03:06 08/01/17 13:05 Labs: Laboratory Last Values WBC 15.5 K/mm3 (4.5-11.0) H 08/01/17 13:05 RBC 4.23 M/mm3 (3.65-5.03) 08/01/17 13:05 Hgb 11.7 gm/dl (10.1-14.3) 08/01/17 13:05 Hct 36.8 % (30.3-42.9) 08/01/17 13:05 MCV 87 fl (79-97) 08/01/17 13:05 MCH 28 pg (28-32) 08/01/17 13:05 MCHC 32 % (30-34) 08/01/17 13:05 RDW 16.1 % (13.2-15.2) H 08/01/17 13:05 Plt Count 296 K/mm3 (140-440) 08/01/17 13:05 Lymph % (Auto) 17.0 % (13.4-35.0) 08/01/17 13:05 [place] % (Auto) 5.4 % (0.0-7.3) 08/01/17 13:05 Eos % (Auto) 2.5 % (0.0-4.3) 08/01/17 13:05 Baso % (Auto) 0.5 % (0.0-1.8) 08/01/17 13:05 Lymph # 2.6 K/mm3 (1.2-5.4) 08/01/17 13:05 [place] # 0.8 K/mm3 (0.0-0.8) 08/01/17 13:05 Eos # 0.4 K/mm3 (0.0-0.4) 08/01/17 13:05 Baso # 0.1 K/mm3 (0.0-0.1) 08/01/17 13:05 Seg Neutrophils % 74.6 % (40.0-70.0) H 08/01/17 13:05 Seg Neutrophils # 11.6 K/mm3 (1.8-7.7) H 08/01/17 13:05 PT 13.6 Sec. (12.2-14.9) 08/01/17 14:26 INR 1.05 (0.87-1.13) 08/01/17 14:26 APTT 40.3 Sec. (24.2-36.6) H 08/01/17 14:26 Sodium 140 mmol/L (137-145) 08/01/17 13:05 Potassium 3.9 mmol/L (3.6-5.0) 08/01/17 13:05 Chloride 104.2 mmol/L (98-107) 08/01/17 13:05 Carbon Dioxide 22 mmol/L (22-30) 08/01/17 13:05 Anion Gap 18 mmol/L 08/01/17 13:05 BUN 24 mg/dL (7-17) H 08/01/17 13:05 Creatinine 1.3 mg/dL (0.7-1.2) H 08/01/17 13:05 Estimated GFR 50 ml/min 08/01/17 13:05 BUN/Creatinine Ratio 18.46 % 08/01/17 13:05 Glucose 81 mg/dL (65-100) 08/01/17 13:05 Calcium 9.3 mg/dL (8.4-10.2) 08/01/17 13:05 Total Bilirubin 0.40 mg/dL (0.1-1.2) 08/01/17 13:50 Direct Bilirubin < 0.2 mg/dL (0-0.2) 08/01/17 13:50 Indirect Bilirubin 0.2 mg/dL 08/01/17 13:50 AST 11 units/L (5-40) 08/01/17 13:50 ALT 10 units/L (7-56) 08/01/17 13:50 Alkaline Phosphatase 67 units/L (35-129) 08/01/17 13:50 Troponin T < 0.010 ng/mL (0.00-0.029) 08/01/17 19:30 NT-Pro-B Natriuret Pep 629.7 pg/mL (0-900) 08/01/17 13:50 Total Protein 6.9 g/dL (6.3-8.2) 08/01/17 13:50 Albumin 3.9 g/dL (3.9-5) 08/01/17 13:50 Albumin/Globulin Ratio 1.3 % 08/01/17 13:50 Urine Color Yellow (Yellow) 08/01/17 17:04 Urine Turbidity Clear (Clear) 08/01/17 17:04 Urine pH 5.0 (5.0-7.0) 08/01/17 17:04 Ur Specific [place] 1.012 (1.003-1.030) 08/01/17 17:04 Urine Protein <15 mg/dl mg/dL (Negative) 08/01/17 17:04 Urine Glucose (UA) Neg mg/dL (Negative) 08/01/17 17:04 Urine Ketones Neg mg/dL (Negative) 08/01/17 17:04 Urine Blood Neg (Negative) 08/01/17 17:04 Urine Nitrite Neg (Negative) 08/01/17 17:04 Urine Bilirubin Neg (Negative) 08/01/17 17:04 Urine Urobilinogen < 2.0 mg/dL (<2.0) 08/01/17 17:04 Ur Leukocyte Esterase Neg (Negative) 08/01/17 17:04 Urine WBC (Auto) 1.0 /HPF (0.0-6.0) 08/01/17 17:04 Urine RBC (Auto) 1.0 /HPF (0.0-6.0) 08/01/17 17:04 U Epithel Cells (Auto) 4.0 /HPF (0-13.0) 08/01/17 17:04 Urine Mucus Few /HPF 08/01/17 17:04 Urine Opiates Screen Presumptive negative 08/01/17 17:04 Urine Methadone Screen Presumptive negative 08/01/17 17:04 Ur Barbiturates Screen Presumptive negative 08/01/17 17:04 Ur Phencyclidine Scrn Presumptive negative 08/01/17 17:04 Ur Amphetamines Screen Presumptive negative 08/01/17 17:04 U Benzodiazepines Scrn Presumptive negative 08/01/17 17:04 Urine Cocaine Screen Presumptive negative 08/01/17 17:04 U Marijuana (THC) Screen Presumptive negative 08/01/17 17:04 Drugs of Abuse Note Disclamer 09/22/17 17:04 Short CBC 08/01/17 08/02/17 Range/Units 13:05 03:06 WBC 15.5 H 12.7 H (4.5-11.0) K/mm3 Hgb 11.7 11.3 (10.1-14.3) gm/dl Hct 36.8 35.3 (30.3-42.9) % Plt Count 296 275 (140-440) K/mm3 BMP 08/01/17 13:05 Sodium 140 Potassium 3.9 Chloride 104.2 Carbon Dioxide 22 BUN 24 H Creatinine 1.3 H Glucose 81 Calcium 9.3 Cardiac Enzymes 08/01/17 08/01/17 08/01/17 Range/Units 13:05 15:58 19:30 Total Creatine Kinase (30-135) units/L CK-MB (CK-2) (0.0-4.0) ng/mL Troponin T < 0.010 < 0.010 < 0.010 (0.00-0.029) ng/mL 08/01/17 08/02/17 Range/Units 23:15 03:06 Total Creatine Kinase 51 48 (30-135) units/L CK-MB (CK-2) 1.3 (0.0-4.0) ng/mL Troponin T < 0.010 < 0.010 (0.00-0.029) ng/mL Liver Function 08/01/17 Range/Units 13:50 Total Bilirubin 0.40 (0.1-1.2) mg/dL Direct Bilirubin < 0.2 (0-0.2) mg/dL AST 11 (5-40) units/L ALT 10 (7-56) units/L Alkaline Phosphatase 67 (35-129) units/L Albumin 3.9 (3.9-5) g/dL Urine 08/01/17 Range/Units 17:04 Urine Color Yellow (Yellow) Urine pH 5.0 (5.0-7.0) Ur Specific [place] 1.012 (1.003-1.030) Urine Protein <15 mg/dl (Negative) mg/dL Urine Glucose (UA) Neg (Negative) mg/dL - Imaging and Cardiology EKG: report reviewed Chest x-ray: report reviewed (NAF) Assessment and Plan Advance Directives: Yes (Full code) VTE prophylaxis?: Chemical Plan of care discussed with patient/family: Yes - Patient Problems (1) Acute chest pain Current Visit: No Status: Acute Plan to address problem: Patient had multiple stress tests.Requested Hospital records from [facility]. (2) Afib Current Visit: No Status: Chronic Qualifiers: Atrial fibrillation type: chronic Qualified Code(s): I48.2 - Chronic atrial fibrillation Plan to address problem: Cont Eliquis (3) HTN (hypertension) Current Visit: Yes Status: Chronic Qualifiers: Hypertension type: essential hypertension Qualified Code(s): I10 - Essential (primary) hypertension Plan to address problem: Cont Lisinopril Carvedilol and Clonidine (4) CAD (coronary artery disease) Current Visit: Yes Status: Chronic Qualifiers: Coronary Disease-Associated Artery/Lesion type: [place] artery [place] vs. transplanted heart: [place] heart Associated angina: angina presence unspecified Qualified Code(s): I25.10 - Atherosclerotic heart disease of [place] coronary artery without angina pectoris Plan to address problem: Cont Isosorbide (5) DVT prophylaxis Current Visit: Yes Status: Acute Plan to address problem: On Eliquis
[2017-08-01] MEDS ORDERED: PROVENTIL IH PRN (21:09)
[2017-08-01] MEDS: NITROSTAT SL PRN ×3 (21:47→21:59)
[2017-08-01] MEDS ORDERED: ELIQUIS PO SCH (22:00)
[2017-08-01] MEDS: PERCOCET 5/325 PO PRN (22:04)
[2017-08-01] MEDS: APRESOLINE PO SCH (22:32)
[2017-08-01] MEDS: PEPCID PO SCH (22:32)
[2017-08-01] MEDS: NORVASC PO SCH (22:33)
[2017-08-01] MEDS: COREG PO SCH (22:33)
[2017-08-01 23:49] LABS: Creatine Kinase MB 1.3 ng/mL (0.0-4.0)
[2017-08-01 23:50] LABS: Creatine Kinase 51 units/L (30-135)
[2017-08-02 03:28] LABS: Basophils % (Auto) 0.5 % (0.0-1.8); Eosinophils % (Auto) 3.4 % (0.0-4.3); Hematocrit 35.3 % (30.3-42.9); Hemoglobin 11.3 gm/dl (10.1-14.3); Mean Corpuscular HGB Conc 32 % (30-34); Mean Corpuscular Hemoglobin 28 pg (28-32); Mean Corpuscular Volume 88 fl (79-97); Platelet Count 275 K/mm3 (140-440); Red Cell Distribution Width 15.8 % (13.2-15.2); White Blood Count 12.7 K/mm3 (4.5-11.0)
[2017-08-02 03:46] LABS: Creatine Kinase 48 units/L (30-135); Creatine Kinase MB 1.3 ng/mL (0.0-4.0)
[2017-08-02] MEDS: APRESOLINE PO SCH ×3 (06:11→21:30)
[2017-08-02] MEDS ORDERED: LEXISCAN IV ONE (08:05)
[2017-08-02] MEDS ORDERED: PERCOCET 5/325 ONE (09:29)
[2017-08-02] MEDS: PERCOCET 5/325 PO PRN (09:30)
[2017-08-02] MEDS ORDERED: LOVENOX SUB-Q ONE ×2 (11:06→14:00)
--- NOTE | 2017-08-02 11:06 | Consultation ---
History of Present Illness Consult date: 08/02/17 Requesting physician: CASSY CRUZ Consult reason: chest pain History of present illness: Patient is a 62-year-old who unfortunately is a very poor historian. Patient currently admitted to the hospital for chest pain. Cardiology is being consulted to further assess her chest pain etiology. By the time I saw the patient patient had already completed her breast perfusion scan. Absolutely no history could be obtained from the patient except that she had this persisting 5 out of 10 chest pain. I have reviewed extensively her records from [facility]. Patient was admitted there with similar complaints of chest pain. However her creatinine at that time was elevated and a cardiac cath was deferred. Patient is a history of paroxysmal atrial fibrillation for which she is on eliquis. She also has history of coronary artery disease with 2 stents placed in 2014 and 2015 details of which are unavailable at present. She did have a stress test today that was positive for inferoapical ischemia Past History Past Medical History: atrial fib, CAD, hyperlipidemia Past Surgical History: PTCA (Srtent x1 in Nov 2016) Social history: no significant social history, smoking, full code Family history: CAD, hypertension Medications and Allergies Allergies Allergy/AdvReac Type Severity Reaction Status Date / Time apple AdvReac Hives Verified 08/01/17 13:02 shell fish Allergy Swelling Uncoded 08/01/17 13:02 Home Medications Medication Instructions Recorded Confirmed Last Taken Type Clopidogrel [Plavix] 75 mg PO QDAY 10/20/15 08/01/17 08/01/17 History Apixaban [Eliquis] 5 mg PO DAILY 02/24/17 08/01/17 08/01/17 History Nitroglycerin [Nitrostat] 0.4 mg SL Q5M PRN 02/24/17 08/01/17 Unknown History amLODIPine [Norvasc] 10 mg PO DAILY #30 tablet 02/25/17 08/01/17 08/01/17 Rx ALBUTEROL Inhaler [Proair] 2 puff IH QID PRN 08/01/17 08/01/17 08/01/17 History AtorvaSTATin [Lipitor] 80 mg PO QHS 08/01/17 08/01/17 07/31/17 History Carvedilol [Coreg] 25 mg PO BID 08/01/17 08/01/17 08/01/17 History Quetiapine Fumarate [Seroquel] 100 mg PO BID 08/01/17 08/01/17 08/01/17 History hydrALAZINE [Apresoline] 25 mg PO Q8HR 08/01/17 08/01/17 08/01/17 History Active Meds: Active Medications Acetaminophen (Tylenol) 650 mg PO Q4H PRN PRN Reason: Pain MILD(1-3)/Fever >100.5/SILVA Albuterol (Proventil) 2.5 mg IH Q4HRT PRN PRN Reason: Shortness Of Breath Amlodipine Besylate (Norvasc) 10 mg PO DAILY [facility] Last Admin: 08/01/17 22:33 Dose: 10 mg Apixaban (Eliquis) 5 mg PO DAILY [facility] PRN Reason: Protocol Last Admin: 08/01/17 22:32 Dose: 5 mg Atorvastatin Calcium (Lipitor) 80 mg PO QHS [facility] Last Admin: 08/01/17 22:31 Dose: 80 mg Bisacodyl (Dulcolax) 10 mg MA QDAY PRN PRN Reason: Constipation unrelieved by MOM Carvedilol (Coreg) 25 mg PO BID [facility] Last Admin: 08/01/17 22:33 Dose: 25 mg Famotidine (Pepcid) 20 mg PO BID [facility] Last Admin: 08/01/17 22:32 Dose: 20 mg Hydralazine HCl (Apresoline) 25 mg PO Q8HR [facility] Last Admin: 08/02/17 06:11 Dose: 25 mg Hydromorphone HCl (Dilaudid) 1 mg IV Q3H PRN PRN Reason: Pain , Severe (7-10) Magnesium Hydroxide (Milk Of Magnesia) 30 ml PO Q4H PRN PRN Reason: Constipation Nitroglycerin (Nitrostat) 0.4 mg SL Q5M PRN PRN Reason: Chest Pain Last Admin: 08/01/17 21:59 Dose: 0.4 mg Ondansetron HCl (Zofran) 4 mg IV Q8H PRN PRN Reason: N/V unrelieved by Reglan Oxycodone/Acetaminophen (Percocet 5/325) 1 tab PO Q6H PRN PRN Reason: Pain, Moderate (4-6) Last Admin: 08/02/17 09:30 Dose: 1 tab Quetiapine Fumarate (Seroquel) 100 mg PO BID [facility] Last Admin: 08/01/17 22:32 Dose: 100 mg Review of Systems All systems: negative (with no additional symptoms except as mentioned in H&P) Physical Examination Vital Signs Pulse Ox 100 08/01/17 13:10 Narrative exam: GEN: NAD HEENT: Carotids 2+ NECK: SUPPLE, CVS: RRR, NORMAL S1S2 LUNGS/CHEST: CTA ABD: SOFT, MSK: FROM X 4 EXTREMITIES NEURO: CN 2-12 GROSSLY INTACT, NO FOCAL DEFICITS PSY: CALM Results 08/02/17 03:06 08/01/17 13:05 Cardiac Enzymes 08/01/17 Range/Units 23:15 CK-MB (CK-2) 1.3 (0.0-4.0) ng/mL CBC 08/02/17 Range/Units 03:06 WBC 12.7 H (4.5-11.0) K/mm3 RBC 4.00 (3.65-5.03) M/mm3 Hgb 11.3 (10.1-14.3) gm/dl Hct 35.3 (30.3-42.9) % Plt Count 275 (140-440) K/mm3 Lymph # 2.3 (1.2-5.4) K/mm3 [place] # 0.7 (0.0-0.8) K/mm3 Eos # 0.4 (0.0-0.4) K/mm3 Baso # 0.1 (0.0-0.1) K/mm3 EKG interpretations - Telemetry EKG Rhythm: Sinus Rhythm Assessment and Plan Impression 1. Recurrent chest pain with multiple recent hospital administration to nearby hospitals 2. Stress test today was positive for inferoapical ischemia 3. History of CAD status post PCI in 2015 and 16 at [place] details of which are not available 4. History of paroxysmal A. fib on eliquis 5. Poor historian with lack of insight into her medical history Plan Continue Plavix start aspirin Hold eliquis Aggressive IV hydration In view of the recurrent admissions for chest pain prior history of CAD and chest pain reminiscent of her previous angina proceed with cardiac Friday
[2017-08-02] MEDS: NORVASC PO SCH (11:08)
[2017-08-02] MEDS: PEPCID PO SCH ×2 (11:08→21:31)
[2017-08-02] MEDS: COREG PO SCH ×2 (11:08→21:30)
--- NOTE | 2017-08-02 12:11 | Progress Note ---
Assessment and Plan Assessment and plan: Chest pain. patient still c/o chest pain. To rule out acute coronary syndrome. She was at [facility] last week. I discussed with Dr. Renan Hawk, copper plate lithographer. For cardiac cath on Friday Coronary artery disease. To r/o acute coronary syndrome Hypertension. On Norvasc and Coreg Hyperlipidemia. She is on Lipitor DVT prophylaxis. On Eliquis atrial fibrillation. On Eliquis Full code status History Interval history: Chest pain Hospitalist Physical - Physical exam Narrative exam: Gen Appearance: Not in acute distress HEENT: normocephalic, atraumatic Neck: supple, no JVD Lungs: Clear to auscultation, bilaterally, no rales, no wheeze Heart: S1 and S2 regular, no murmurs, rubs or gallop Abdomen: Soft , non tender, non distended, normal bowel sounds Extremity: No edema, no clubbing or cyanosis, Neuro : Awake,alert, oriented x 3, moves all extremities - Constitutional Vitals: Temp Pulse Resp BP Pulse Ox 98.0 F 73 16 165/86 99 08/02/17 12:01 08/02/17 12:01 08/02/17 12:01 08/02/17 12:01 08/02/17 12:01 General appearance: Present: no acute distress, well-nourished Results - Labs CBC & Chem 7: 08/02/17 03:06 08/02/17 03:06 Labs: Laboratory Last Values WBC 12.7 K/mm3 (4.5-11.0) H 08/02/17 03:06 RBC 4.00 M/mm3 (3.65-5.03) 08/02/17 03:06 Hgb 11.3 gm/dl (10.1-14.3) 08/02/17 03:06 Hct 35.3 % (30.3-42.9) 08/02/17 03:06 MCV 88 fl (79-97) 08/02/17 03:06 MCH 28 pg (28-32) 08/02/17 03:06 MCHC 32 % (30-34) 08/02/17 03:06 RDW 15.8 % (13.2-15.2) H 08/02/17 03:06 Plt Count 275 K/mm3 (140-440) 08/02/17 03:06 Lymph % (Auto) 17.7 % (13.4-35.0) 08/02/17 03:06 [place] % (Auto) 5.2 % (0.0-7.3) 08/02/17 03:06 Eos % (Auto) 3.4 % (0.0-4.3) 08/02/17 03:06 Baso % (Auto) 0.5 % (0.0-1.8) 08/02/17 03:06 Lymph # 2.3 K/mm3 (1.2-5.4) 08/02/17 03:06 [place] # 0.7 K/mm3 (0.0-0.8) 08/02/17 03:06 Eos # 0.4 K/mm3 (0.0-0.4) 08/02/17 03:06 Baso # 0.1 K/mm3 (0.0-0.1) 08/02/17 03:06 Seg Neutrophils % 73.2 % (40.0-70.0) H 08/02/17 03:06 Seg Neutrophils # 9.3 K/mm3 (1.8-7.7) H 08/02/17 03:06 PT 13.6 Sec. (12.2-14.9) 08/01/17 14:26 INR 1.05 (0.87-1.13) 08/01/17 14:26 APTT 40.3 Sec. (24.2-36.6) H 08/01/17 14:26 Sodium 140 mmol/L (137-145) 08/01/17 13:05 Potassium 3.9 mmol/L (3.6-5.0) 08/01/17 13:05 Chloride 104.2 mmol/L (98-107) 08/01/17 13:05 Carbon Dioxide 22 mmol/L (22-30) 08/01/17 13:05 Anion Gap 18 mmol/L 08/01/17 13:05 BUN 24 mg/dL (7-17) H 08/01/17 13:05 Creatinine 1.3 mg/dL (0.7-1.2) H 08/01/17 13:05 Estimated GFR 50 ml/min 08/01/17 13:05 BUN/Creatinine Ratio 18.46 % 08/01/17 13:05 Glucose 81 mg/dL (65-100) 08/01/17 13:05 POC Glucose 169 (70-105) H 08/01/17 21:18 Hemoglobin A1c 6.8 % (4-6) H 08/01/17 21:05 Calcium 9.3 mg/dL (8.4-10.2) 08/01/17 13:05 Total Bilirubin 0.40 mg/dL (0.1-1.2) 08/01/17 13:50 Direct Bilirubin < 0.2 mg/dL (0-0.2) 08/01/17 13:50 Indirect Bilirubin 0.2 mg/dL 08/01/17 13:50 AST 11 units/L (5-40) 08/01/17 13:50 ALT 10 units/L (7-56) 08/01/17 13:50 Alkaline Phosphatase 67 units/L (35-129) 08/01/17 13:50 Total Creatine Kinase 48 units/L (30-135) 08/02/17 03:06 CK-MB (CK-2) 1.3 ng/mL (0.0-4.0) 08/01/17 23:15 CK-MB (CK-2) Rel Index 2.7 (0-4) 08/02/17 03:06 Troponin T < 0.010 ng/mL (0.00-0.029) 08/02/17 03:06 NT-Pro-B Natriuret Pep 629.7 pg/mL (0-900) 08/01/17 13:50 Total Protein 6.9 g/dL (6.3-8.2) 08/01/17 13:50 Albumin 3.9 g/dL (3.9-5) 08/01/17 13:50 Albumin/Globulin Ratio 1.3 % 08/01/17 13:50 Urine Color Yellow (Yellow) 08/01/17 17:04 Urine Turbidity Clear (Clear) 08/01/17 17:04 Urine pH 5.0 (5.0-7.0) 08/01/17 17:04 Ur Specific [place] 1.012 (1.003-1.030) 08/01/17 17:04 Urine Protein <15 mg/dl mg/dL (Negative) 08/01/17 17:04 Urine Glucose (UA) Neg mg/dL (Negative) 08/01/17 17:04 Urine Ketones Neg mg/dL (Negative) 08/01/17 17:04 Urine Blood Neg (Negative) 08/01/17 17:04 Urine Nitrite Neg (Negative) 08/01/17 17:04 Urine Bilirubin Neg (Negative) 08/01/17 17:04 Urine Urobilinogen < 2.0 mg/dL (<2.0) 08/01/17 17:04 Ur Leukocyte Esterase Neg (Negative) 08/01/17 17:04 Urine WBC (Auto) 1.0 /HPF (0.0-6.0) 08/01/17 17:04 Urine RBC (Auto) 1.0 /HPF (0.0-6.0) 08/01/17 17:04 U Epithel Cells (Auto) 4.0 /HPF (0-13.0) 08/01/17 17:04 Urine Mucus Few /HPF 08/01/17 17:04 Urine Opiates Screen Presumptive negative 08/01/17 17:04 Urine Methadone Screen Presumptive negative 08/01/17 17:04 Ur Barbiturates Screen Presumptive negative 08/01/17 17:04 Ur Phencyclidine Scrn Presumptive negative 08/01/17 17:04 Ur Amphetamines Screen Presumptive negative 08/01/17 17:04 U Benzodiazepines Scrn Presumptive negative 08/01/17 17:04 Urine Cocaine Screen Presumptive negative 08/01/17 17:04 U Marijuana (THC) Screen Presumptive negative 08/01/17 17:04 Drugs of Abuse Note Disclamer 08/01/17 17:04
[2017-08-02 12:52] LABS: Creatine Kinase 63 units/L (30-135); Creatine Kinase MB 1.7 ng/mL (0.0-4.0)
[2017-08-02 14:57] LABS: Albumin 3.5 g/dL (3.9-5); Chloride 105.2 mmol/L (98-107)
[2017-08-02 15:14] LABS: Albumin/Globulin Ratio 1.5 %; BUN/Creatinine Ratio 19.28; Bilirubin,Total 0.4 mg/dL (0.1-1.2); Calcium 8.5 mg/dL (8.4-10.2); Total Protein 5.8 g/dL (6.3-8.2)
--- NOTE | 2017-08-02 21:57 | Treadmill Report ---
MYOCARDIAL PERFUSION REPORT PROCEDURE DETAIL: Myocardial perfusion scan was done using the standard Lexiscan protocol. Scans were done pre and post Lexiscan stress test. The rest and stress images and gated analysis were reviewed. FINDINGS: 1. There is a small area of mild defect of moderate severity involving the inferior apical wall, concerning ischemia. No other areas of fixed or reversible defects suggestive of infarct or ischemia noted. 3. Gated analysis reveals normal wall motion. 4. LVEF is normal. IMPRESSION: 1. Abnormal stress perfusion scan revealing a small area of moderate intensity in the inferoapical wall, concerning for ischemia. 2. Preserved LV systolic function. 3. This is an intermediate-risk cardiac study. JOB# [id number] ARSH/EFREN
[2017-08-03] MEDS: APRESOLINE PO SCH ×3 (05:59→22:17)
--- NOTE | 2017-08-03 09:43 | Progress Note ---
Assessment and Plan Impression 1. Recurrent chest pain with multiple recent hospital administration to nearby hospitals 2. Stress test this admission was positive for inferoapical ischemia 3. History of CAD status post PCI in 2015 and 16 at [place] details of which are not available 4. History of paroxysmal A. fib on eliquis that is being held for anticipated cardiac cath tomorrow 5. Poor historian with lack of insight into her medical history 6. Mild renal insufficiency Plan Continue Plavix and aspirin Continue holding eliquis Aggressive IV hydration Start acetylcysteine In view of the recurrent admissions for chest pain prior history of CAD and chest pain reminiscent of her previous angina proceed with cardiac tomorrow if renal function is stable Subjective Date of service: 08/03/17 Principal diagnosis: unstable angina Interval history: Chest pain much better Objective Vital Signs Temp Pulse Resp BP Pulse Ox 08/03/17 08:10 99.0 F 72 24 153/86 97 08/03/17 05:59 152/93 08/03/17 05:22 97.8 F 71 18 152/93 100 08/03/17 05:00 70 08/03/17 00:13 98.1 F 72 18 137/74 93 08/02/17 22:47 99 08/02/17 21:30 72 145/86 08/02/17 21:00 72 08/02/17 19:26 98.2 F 72 18 145/86 99 08/02/17 17:16 98.0 F 74 16 151/88 100 08/02/17 13:42 82 160/78 08/02/17 12:01 98.0 F 73 16 165/86 99 08/02/17 11:08 80 140/80 08/02/17 10:46 98.3 F 84 16 176/94 99 - Physical Examination Narrative exam: GEN: NAD HEENT: Carotids 2+ NECK: SUPPLE, CVS: RRR, NORMAL S1S2 LUNGS/CHEST: CTA ABD: SOFT, MSK: FROM X 4 EXTREMITIES NEURO: CN 2-12 GROSSLY INTACT, NO FOCAL DEFICITS PSY: CALM - Labs and Meds Cardiac Enzymes 08/02/17 08/02/17 Range/Units 03:06 12:10 AST 13 (5-40) units/L CK-MB (CK-2) 1.7 (0.0-4.0) ng/mL Comprehensive Metabolic Panel 09/23/17 Range/Units 03:06 Carbon Dioxide 18 L (22-30) mmol/L BUN 27 H (7-17) mg/dL Creatinine 1.4 H (0.7-1.2) mg/dL Glucose 126 H (65-100) mg/dL Calcium 8.5 (8.4-10.2) mg/dL AST 13 (5-40) units/L ALT 11 (7-56) units/L Alkaline Phosphatase 67 (35-129) units/L Total Protein 5.8 L (6.3-8.2) g/dL Albumin 3.5 L (3.9-5) g/dL - Imaging and Cardiology EKG: report reviewed
[2017-08-03] MEDS ORDERED: NACL 0.9% 500 ML 1,000 ML IV SCH (10:00)
[2017-08-03] MEDS: PEPCID PO SCH ×2 (10:13→22:16)
[2017-08-03] MEDS: COREG PO SCH ×2 (10:14→22:16)
[2017-08-03] MEDS: BABY ASPIRIN PO SCH (10:14)
[2017-08-03] MEDS: NORVASC PO SCH (10:14)
--- NOTE | 2017-08-03 10:38 | Progress Note ---
Assessment and Plan Assessment and plan: Chest pain. To rule out acute coronary syndrome. She was at [facility] last week. I discussed with Dr. Renan Hawk, storage battery inspector. For cardiac cath tomorrow. She feels better. No chest pain currently. Coronary artery disease. To r/o acute coronary syndrome Hypertension. BP uncontrolled. On Norvasc, Coreg. May increase dose of hydralazine to 50 mg po q 8h if blood pressure remains uncontrolled Hyperlipidemia. She is on Lipitor DVT prophylaxis. On Eliquis Atrial fibrillation. On Eliquis Full code status History Interval history: No more chest pain, No shortness of breath Hospitalist Physical - Physical exam Narrative exam: Gen Appearance: Not in acute distress HEENT: normocephalic, atraumatic Neck: supple, no JVD Lungs: Clear to auscultation, bilaterally, no rales, no wheeze Heart: S1 and S2 regular, no murmurs, rubs or gallop Abdomen: Soft , non tender, non distended, normal bowel sounds Extremity: No edema, no clubbing or cyanosis, Neuro : Awake,alert, oriented x 3, moves all extremities - Constitutional Vitals: Temp Pulse Resp BP Pulse Ox 99.0 F 72 24 153/86 97 08/03/17 08:10 08/03/17 08:10 08/03/17 08:10 08/03/17 08:10 08/03/17 08:10 General appearance: Present: no acute distress, well-nourished Results - Labs CBC & Chem 7: 08/02/17 03:06 08/02/17 03:06 Labs: Laboratory Last Values WBC 12.7 K/mm3 (4.5-11.0) H 08/02/17 03:06 RBC 4.00 M/mm3 (3.65-5.03) 08/02/17 03:06 Hgb 11.3 gm/dl (10.1-14.3) 08/02/17 03:06 Hct 35.3 % (30.3-42.9) 08/02/17 03:06 MCV 88 fl (79-97) 08/02/17 03:06 MCH 28 pg (28-32) 08/02/17 03:06 MCHC 32 % (30-34) 08/02/17 03:06 RDW 15.8 % (13.2-15.2) H 08/02/17 03:06 Plt Count 275 K/mm3 (140-440) 08/02/17 03:06 Lymph % (Auto) 17.7 % (13.4-35.0) 08/02/17 03:06 [place] % (Auto) 5.2 % (0.0-7.3) 08/02/17 03:06 Eos % (Auto) 3.4 % (0.0-4.3) 08/02/17 03:06 Baso % (Auto) 0.5 % (0.0-1.8) 08/02/17 03:06 Lymph # 2.3 K/mm3 (1.2-5.4) 08/02/17 03:06 [place] # 0.7 K/mm3 (0.0-0.8) 08/02/17 03:06 Eos # 0.4 K/mm3 (0.0-0.4) 08/02/17 03:06 Baso # 0.1 K/mm3 (0.0-0.1) 08/02/17 03:06 Seg Neutrophils % 73.2 % (40.0-70.0) H 08/02/17 03:06 Seg Neutrophils # 9.3 K/mm3 (1.8-7.7) H 08/02/17 03:06 PT 13.6 Sec. (12.2-14.9) 08/01/17 14:26 INR 1.05 (0.87-1.13) 08/01/17 14:26 APTT 40.3 Sec. (24.2-36.6) H 08/01/17 14:26 Sodium 140 mmol/L (137-145) 08/01/17 13:05 Potassium 3.9 mmol/L (3.6-5.0) 08/01/17 13:05 Chloride 104.2 mmol/L (98-107) 08/01/17 13:05 Carbon Dioxide 18 mmol/L (22-30) L 08/02/17 03:06 Anion Gap 20 mmol/L 08/02/17 03:06 BUN 27 mg/dL (7-17) H 08/02/17 03:06 Creatinine 1.4 mg/dL (0.7-1.2) H 08/02/17 03:06 Estimated GFR 46 ml/min 08/02/17 03:06 BUN/Creatinine Ratio 19.28 % 08/02/17 03:06 Glucose 126 mg/dL (65-100) H 08/02/17 03:06 POC Glucose 145 (70-105) H 08/02/17 21:15 Hemoglobin A1c 6.8 % (4-6) H 08/01/17 21:05 Calcium 8.5 mg/dL (8.4-10.2) 08/02/17 03:06 Total Bilirubin 0.40 mg/dL (0.1-1.2) 08/02/17 03:06 Direct Bilirubin < 0.2 mg/dL (0-0.2) 08/01/17 13:50 Indirect Bilirubin 0.2 mg/dL 08/01/17 13:50 AST 13 units/L (5-40) 08/02/17 03:06 ALT 11 units/L (7-56) 08/02/17 03:06 Alkaline Phosphatase 67 units/L (35-129) 08/02/17 03:06 Total Creatine Kinase 63 units/L (30-135) 08/02/17 12:10 CK-MB (CK-2) 1.7 ng/mL (0.0-4.0) 08/02/17 12:10 CK-MB (CK-2) Rel Index 2.6 (0-4) 08/02/17 12:10 Troponin T < 0.010 ng/mL (0.00-0.029) 08/02/17 12:10 NT-Pro-B Natriuret Pep 629.7 pg/mL (0-900) 08/01/17 13:50 Total Protein 5.8 g/dL (6.3-8.2) L 08/02/17 03:06 Albumin 3.5 g/dL (3.9-5) L 08/02/17 03:06 Albumin/Globulin Ratio 1.5 % 08/02/17 03:06 Urine Color Yellow (Yellow) 08/01/17 17:04 Urine Turbidity Clear (Clear) 08/01/17 17:04 Urine pH 5.0 (5.0-7.0) 08/01/17 17:04 Ur Specific [place] 1.012 (1.003-1.030) 08/01/17 17:04 Urine Protein <15 mg/dl mg/dL (Negative) 08/01/17 17:04 Urine Glucose (UA) Neg mg/dL (Negative) 08/01/17 17:04 Urine Ketones Neg mg/dL (Negative) 08/01/17 17:04 Urine Blood Neg (Negative) 08/01/17 17:04 Urine Nitrite Neg (Negative) 08/01/17 17:04 Urine Bilirubin Neg (Negative) 08/01/17 17:04 Urine Urobilinogen < 2.0 mg/dL (<2.0) 08/01/17 17:04 Ur Leukocyte Esterase Neg (Negative) 08/01/17 17:04 Urine WBC (Auto) 1.0 /HPF (0.0-6.0) 08/01/17 17:04 Urine RBC (Auto) 1.0 /HPF (0.0-6.0) 08/01/17 17:04 U Epithel Cells (Auto) 4.0 /HPF (0-13.0) 08/01/17 17:04 Urine Mucus Few /HPF 08/01/17 17:04 Urine Opiates Screen Presumptive negative 08/01/17 17:04 Urine Methadone Screen Presumptive negative 08/01/17 17:04 Ur Barbiturates Screen Presumptive negative 08/01/17 17:04 Ur Phencyclidine Scrn Presumptive negative 08/01/17 17:04 Ur Amphetamines Screen Presumptive negative 08/01/17 17:04 U Benzodiazepines Scrn Presumptive negative 08/01/17 17:04 Urine Cocaine Screen Presumptive negative 08/01/17 17:04 U Marijuana (THC) Screen Presumptive negative 08/01/17 17:04 Drugs of Abuse Note Disclamer 08/01/17 17:04
[2017-08-03] MEDS: MUCOMYST ORAL PO SCH ×2 (13:54→22:00)
[2017-08-03] MEDS: DILAUDID IV PRN (14:01)
[2017-08-03] MEDS: PERCOCET 5/325 PO PRN (22:18)
[2017-08-04 05:44] LABS: Hematocrit 36.6 % (30.3-42.9); Hemoglobin 11.6 gm/dl (10.1-14.3); Mean Corpuscular HGB Conc 32 % (30-34); Mean Corpuscular Hemoglobin 28 pg (28-32); Mean Corpuscular Volume 88 fl (79-97); Platelet Count 270 K/mm3 (140-440); Red Blood Count 4.15 M/mm3 (3.65-5.03); White Blood Count 11.6 K/mm3 (4.5-11.0)
[2017-08-04 05:54] LABS: INR 0.89 (0.87-1.13)
[2017-08-04 06:02] LABS: BUN/Creatinine Ratio 19.23; Calcium 8.7 mg/dL (8.4-10.2); Potassium 4.2 mmol/L (3.6-5.0)
[2017-08-04] MEDS: APRESOLINE PO SCH ×3 (06:32→22:47)
[2017-08-04] MEDS: BABY ASPIRIN PO SCH (11:07)
[2017-08-04] MEDS: NORVASC PO SCH (11:07)
[2017-08-04] MEDS: PEPCID PO SCH ×2 (11:08→22:47)
[2017-08-04] MEDS: COREG PO SCH ×2 (11:08→22:47)
[2017-08-04] MEDS ORDERED: BENADRYL ONE (12:42)
[2017-08-04] MEDS ORDERED: CALAN ONE (12:52)
[2017-08-04] MEDS ORDERED: HEPARIN 10,000 UNITS/10 ML ONE (12:52)
[2017-08-04] MEDS ORDERED: NITROGLYCERIN SYRINGE 0 ML ONE (12:53)
[2017-08-04] MEDS ORDERED: NACL 0.9% 500 ML 500 ML ONE (12:54)
[2017-08-04] MEDS: SUBLIMAZE ONE ×4 (13:10→13:41)
[2017-08-04] MEDS: VERSED ONE ×3 (13:10→13:27)
[2017-08-04] MEDS: HEPARIN/NS 5000 UNIT/500ML(CATH LAB) 1,000 ML IR ONE ×2 (13:11→13:28)
[2017-08-04] MEDS: XYLOCAINE 2% INFILTRATI ONE ×3 (13:11→13:27)
--- NOTE | 2017-08-04 13:53 | Event Note ---
Date: 08/04/17 Cardiac cath, no complications. Findings: Widely patent [id number] LAD stents. Otherwise no significant residual coronary lesions. LVEF 50-55%. Recommend: Medical therapy and RF modification including smoking cessation. OK for cardiac discharge.
[2017-08-04] MEDS ORDERED: NACL 0.9% 1000 ML 1,000 ML IV SCH (14:00)
--- NOTE | 2017-08-04 14:07 | Discharge Summary ---
Providers - Providers Date of Admission: 08/01/17 15:14 Date of discharge: 08/04/17 Attending physician: LITA VILLEGAS 08/02/17 07:22 Consult to Physician [CONS] Routine Consulting Provider: DEV BROWN Reason For Exam: Chest pain Place consult to:: [facility] Notified:: yes If yes, spoke with:: Dr Hawk Time called:: 09:03 08/04/17 13:53 Consult to Cardiac Rehabilitation [CONS] Routine Reason For Exam: Cardiac Rehab Evaluation Primary care physician: VISCOSITY WORKER Hospitalization Condition: Fair Disposition: DC-01 TO HOME OR SELFCARE - Discharge Diagnoses (1) Stable angina Status: Acute (2) Chest pain Status: Acute Qualifiers: Chest pain type: unspecified Ischemic chest pain type: I Qualified Code(s ): R07.9 - Chest pain, unspecified (3) CAD (coronary artery disease) Status: Chronic Qualifiers: Coronary Disease-Associated Artery/Lesion type: [place] artery [place] vs. transplanted heart: [place] heart Associated angina: with stable angina Qualified Code(s): I25.118 - Atherosclerotic heart disease of [place] coronary artery with other forms of angina pectoris Core Measure Documentation - Palliative Care Palliative Care/ Comfort Measures: Not Applicable Exam - Constitutional Vitals: Temp Pulse Resp BP Pulse Ox 98.2 F 71 18 155/90 96 08/04/17 11:54 08/04/17 11:54 08/04/17 11:54 08/04/17 11:54 08/04/17 11:54 Plan Activity: advance as tolerated Diet: low fat, low cholesterol, low salt, diabetic Additional Instructions: 1.Follow up with PCP in 1 week. 2.Follow up with Cardiology in 1 week Follow up with: PRIMARY CARE, [Primary Care Provider] - 3-5 Days Prescriptions: Famotidine [Pepcid] 20 mg PO BID #60 tablet ISOSORBIDE MONOnitrate [Imdur ER] 30 mg PO DAILY #30 tab.er.24h
--- NOTE | 2017-08-04 14:45 | Cardiac Catherization Report ---
CARDIAC CATHETERIZATION REPORT REASON FOR PROCEDURE: Chest pain and abnormal thallium stress test. PROCEDURE PERFORMED: 1. Left heart catheterization. 2. Left ventricular angiography. 3. Selective left and right coronary angiography. The patient was prepped and draped in a sterile fashion after informed consent. Right femoral artery was entered using the Seldinger technique followed by placement of a 6-Faroese sheath. Selective left and right coronary angiography was performed using #4 right and left Bradford catheters. A pigtail catheter was used for left ventricle angiography. The catheters were removed, sheath removed, and hemostasis achieved using an Angio-Seal device. The patient was returned to the postprocedure unit in stable condition. There were no complications. FINDINGS: HEMODYNAMICS: Left ventricle end diastolic pressure was 24, following coronary angiography. Ascending aortic pressure was 176/90. There was no significant pressure gradient on pullback across the aortic valve. CORONARY ANGIOGRAPHY: The left main coronary artery was short and essentially there was separate LAD and circumflex ostia. The LAD was notable for two seperate, previously stented segments. There was a long stented segment of the proximal to mid LAD, extending from the origin of a large first diagonal branch. This proximal stent was widely patent, with no significant instent restenosis. This was followed by another, slightly shorter stent of the mid to distal LAD. This latter stent was also widely patent with no significant instent restenosis. The large proximal diagonal branch of the LAD contained mild luminal irregularities. Otherwise, no significant residual denovo lesions were noted in the LAD or diagonal branches. The circumflex was a small caliber system that consisted of a single medium sized obtuse marginal. This vessel was free of significant disease. The right coronary artery was dominant. This vessel contained mild narrowing of its mid segment, otherwise no significant disease. Left ventricular systolic function was at lower limits of normal, ejection fraction 50-55%. CONCLUSION: 1. Widely patent proximal to mid and mid to distal LAD stents, no significant instent restenosis despite two long stented segments. 2. No significant residual denovo lesions noted. 3. Well preserved left ventricular systolic function, ejection fraction 50-55%. RECOMMENDATION: Risk factor modification and medical therapy. [facility]# [id number] CHALINO/EFREN RAZAD
--- NOTE | 2017-08-04 18:54 | Progress Note ---
Assessment and Plan Assessment and plan: Chest pain. To rule out acute coronary syndrome. She was at [facility] last week. I discussed with Dr. Renan Hawk, singer songwriter. Cardiac cath done today showed 2 patent stents. cardiology recommended discharge home however was just called by Nurse tat she has blood oozing from site. Cancel intended discharge. Apply pressure dressing Coronary artery disease. To r/o acute coronary syndrome Hypertension. BP improved On Norvasc, Coreg, Hydralazine. Hyperlipidemia. She is on Lipitor DVT prophylaxis. On Eliquis Atrial fibrillation. On Eliquis Full code status Discharge canceled because of blood oozing from cardiac cath site. History Interval history: No more chest pain, No shortness of breath, Cardiac cath done today, Not discharged because blood oozing from site on groin Hospitalist Physical - Physical exam Narrative exam: Gen Appearance: Not in acute distress HEENT: normocephalic, atraumatic Neck: supple, no JVD Lungs: Clear to auscultation, bilaterally, no rales, no wheeze Heart: S1 and S2 regular, no murmurs, rubs or gallop Abdomen: Soft , non tender, non distended, normal bowel sounds Extremity: No edema, no clubbing or cyanosis, Neuro : Awake,alert, oriented x 3, moves all extremities - Constitutional Vitals: Temp Pulse Resp BP Pulse Ox 98.8 F 76 18 165/92 97 08/04/17 17:08 08/04/17 15:30 08/04/17 17:08 08/04/17 17:08 08/04/17 15:30 General appearance: Present: no acute distress, well-nourished Results - Labs CBC & Chem 7: 08/06/17 10:20 08/06/17 10:20 Labs: Laboratory Last Values WBC 11.6 K/mm3 (4.5-11.0) H 08/04/17 05:10 RBC 4.15 M/mm3 (3.65-5.03) 08/04/17 05:10 Hgb 11.6 gm/dl (10.1-14.3) 08/04/17 05:10 Hct 36.6 % (30.3-42.9) 08/04/17 05:10 MCV 88 fl (79-97) 08/04/17 05:10 MCH 28 pg (28-32) 08/04/17 05:10 MCHC 32 % (30-34) 08/04/17 05:10 RDW 16.0 % (13.2-15.2) H 08/04/17 05:10 Plt Count 270 K/mm3 (140-440) 08/04/17 05:10 Lymph % (Auto) 17.7 % (13.4-35.0) 08/02/17 03:06 [place] % (Auto) 5.2 % (0.0-7.3) 08/02/17 03:06 Eos % (Auto) 3.4 % (0.0-4.3) 08/02/17 03:06 Baso % (Auto) 0.5 % (0.0-1.8) 08/02/17 03:06 Lymph # 2.3 K/mm3 (1.2-5.4) 08/02/17 03:06 [place] # 0.7 K/mm3 (0.0-0.8) 08/02/17 03:06 Eos # 0.4 K/mm3 (0.0-0.4) 08/02/17 03:06 Baso # 0.1 K/mm3 (0.0-0.1) 08/02/17 03:06 Seg Neutrophils % 73.2 % (40.0-70.0) H 08/02/17 03:06 Seg Neutrophils # 9.3 K/mm3 (1.8-7.7) H 08/02/17 03:06 PT 11.9 Sec. (12.2-14.9) L 08/04/17 05:10 INR 0.89 (0.87-1.13) 08/04/17 05:10 APTT 40.3 Sec. (24.2-36.6) H 08/01/17 14:26 Sodium 140 mmol/L (137-145) 08/04/17 05:10 Potassium 4.2 mmol/L (3.6-5.0) 08/04/17 05:10 Chloride 106.0 mmol/L (98-107) 08/04/17 05:10 Carbon Dioxide 20 mmol/L (22-30) L 08/04/17 05:10 Anion Gap 18 mmol/L 08/04/17 05:10 BUN 25 mg/dL (7-17) H 08/04/17 05:10 Creatinine 1.3 mg/dL (0.7-1.2) H 08/04/17 05:10 Estimated GFR 50 ml/min 08/04/17 05:10 BUN/Creatinine Ratio 19.23 % 08/04/17 05:10 Glucose 116 mg/dL (65-100) H 08/04/17 05:10 POC Glucose 120 (70-105) H 08/04/17 17:14 Hemoglobin A1c 6.8 % (4-6) H 08/01/17 21:05 Calcium 8.7 mg/dL (8.4-10.2) 08/04/17 05:10 Total Bilirubin 0.40 mg/dL (0.1-1.2) 08/02/17 03:06 Direct Bilirubin < 0.2 mg/dL (0-0.2) 08/01/17 13:50 Indirect Bilirubin 0.2 mg/dL 08/01/17 13:50 AST 13 units/L (5-40) 08/02/17 03:06 ALT 11 units/L (7-56) 08/02/17 03:06 Alkaline Phosphatase 67 units/L (35-129) 08/02/17 03:06 Total Creatine Kinase 63 units/L (30-135) 08/02/17 12:10 CK-MB (CK-2) 1.7 ng/mL (0.0-4.0) 08/02/17 12:10 CK-MB (CK-2) Rel Index 2.6 (0-4) 08/02/17 12:10 Troponin T < 0.010 ng/mL (0.00-0.029) 08/02/17 12:10 NT-Pro-B Natriuret Pep 629.7 pg/mL (0-900) 08/01/17 13:50 Total Protein 5.8 g/dL (6.3-8.2) L 08/02/17 03:06 Albumin 3.5 g/dL (3.9-5) L 08/02/17 03:06 Albumin/Globulin Ratio 1.5 % 08/02/17 03:06 Urine Color Yellow (Yellow) 08/01/17 17:04 Urine Turbidity Clear (Clear) 08/01/17 17:04 Urine pH 5.0 (5.0-7.0) 08/01/17 17:04 Ur Specific [place] 1.012 (1.003-1.030) 08/01/17 17:04 Urine Protein <15 mg/dl mg/dL (Negative) 08/01/17 17:04 Urine Glucose (UA) Neg mg/dL (Negative) 08/01/17 17:04 Urine Ketones Neg mg/dL (Negative) 08/01/17 17:04 Urine Blood Neg (Negative) 08/01/17 17:04 Urine Nitrite Neg (Negative) 08/01/17 17:04 Urine Bilirubin Neg (Negative) 08/01/17 17:04 Urine Urobilinogen < 2.0 mg/dL (<2.0) 08/01/17 17:04 Ur Leukocyte Esterase Neg (Negative) 08/01/17 17:04 Urine WBC (Auto) 1.0 /HPF (0.0-6.0) 08/01/17 17:04 Urine RBC (Auto) 1.0 /HPF (0.0-6.0) 08/01/17 17:04 U Epithel Cells (Auto) 4.0 /HPF (0-13.0) 08/01/17 17:04 Urine Mucus Few /HPF 08/01/17 17:04 Urine Opiates Screen Presumptive negative 08/01/17 17:04 Urine Methadone Screen Presumptive negative 08/01/17 17:04 Ur Barbiturates Screen Presumptive negative 08/01/17 17:04 Ur Phencyclidine Scrn Presumptive negative 08/01/17 17:04 Ur Amphetamines Screen Presumptive negative 08/01/17 17:04 U Benzodiazepines Scrn Presumptive negative 08/01/17 17:04 Urine Cocaine Screen Presumptive negative 08/01/17 17:04 U Marijuana (THC) Screen Presumptive negative 08/01/17 17:04 Drugs of Abuse Note Disclamer 08/01/17 17:04
[2017-08-04] MEDS: DILAUDID IV PRN (19:30)
[2017-08-05] MEDS ORDERED: NACL 0.9% 1000 ML 1,000 ML IV ONE (02:06)
[2017-08-05] MEDS: DILAUDID IV PRN ×4 (02:24→23:18)
[2017-08-05] MEDS: APRESOLINE PO SCH ×3 (06:18→22:06)
[2017-08-05 07:39] LABS: Basophils % (Auto) 0.6 % (0.0-1.8); Eosinophils % (Auto) 1.3 % (0.0-4.3); Hematocrit 32.8 % (30.3-42.9); Hemoglobin 10.4 gm/dl (10.1-14.3); Mean Corpuscular HGB Conc 32 % (30-34); Mean Corpuscular Hemoglobin 28 pg (28-32); Mean Corpuscular Volume 87 fl (79-97); Platelet Count 257 K/mm3 (140-440); Red Blood Count 3.75 M/mm3 (3.65-5.03); White Blood Count 14.8 K/mm3 (4.5-11.0)
--- NOTE | 2017-08-05 10:14 | Progress Note ---
Assessment and Plan Chest pain [facility] Findings: Widely patent [id number] LAD stents. Otherwise no significant residual coronary lesions. LVEF 50-55%. Hx of CAD Paroxysmal Afib on eliquis as an outpatient Tobacco abuse Subjective Date of service: 08/05/17 Principal diagnosis: unstable angina Interval history: Discharge held due to bleeding of right groin cath site. BP stable. Patient has no complaints. Pressure dressing and sandbag currently in place. Objective Vital Signs Temp Pulse Resp BP Pulse Ox 08/05/17 08:48 20 08/05/17 07:00 73 08/05/17 06:18 140/84 08/05/17 04:05 98.3 F 18 140/84 08/04/17 23:31 98.2 F 18 155/86 08/04/17 23:00 72 08/04/17 19:30 22 08/04/17 17:08 98.8 F 18 165/92 08/04/17 15:30 76 97 08/04/17 15:15 72 98 08/04/17 15:00 73 96 08/04/17 14:45 73 95 08/04/17 14:30 74 162/92 99 08/04/17 14:15 72 152/85 96 08/04/17 14:11 73 142/98 97 08/04/17 14:10 20 08/04/17 11:55 71 155/90 99 08/04/17 11:54 98.2 F 71 18 155/90 96 - Physical Examination General: No Apparent Distress Cardiac: Positive: Reg Rate and Rhythm Incision: Cardiac Cath Site - Labs and Meds CBC 08/05/17 Range/Units 06:40 WBC 14.8 H (4.5-11.0) K/mm3 RBC 3.75 (3.65-5.03) M/mm3 Hgb 10.4 (10.1-14.3) gm/dl Hct 32.8 (30.3-42.9) % Plt Count 257 (140-440) K/mm3 Lymph # 2.7 (1.2-5.4) K/mm3 [place] # 0.9 H (0.0-0.8) K/mm3 Eos # 0.2 (0.0-0.4) K/mm3 Baso # 0.1 (0.0-0.1) K/mm3 - Imaging and Cardiology EKG: report reviewed
[2017-08-05] MEDS: PERCOCET 5/325 PO PRN (10:29)
[2017-08-05] MEDS: BABY ASPIRIN PO SCH (10:29)
[2017-08-05] MEDS: COREG PO SCH ×2 (10:30→22:06)
[2017-08-05] MEDS: PEPCID PO SCH ×2 (10:30→22:06)
[2017-08-05] MEDS: NORVASC PO SCH (10:30)
--- NOTE | 2017-08-05 17:58 | Progress Note ---
Assessment and Plan Assessment and plan: Chest pain. To rule out acute coronary syndrome. She was at [facility] last week. I discussed with Dr. Renan Hawk, table games dealer. For cardiac cath tomorrow. She feels better. No chest pain currently. Coronary artery disease. To r/o acute coronary syndrome Hypertension. BP uncontrolled. On Norvasc, Coreg. May increase dose of hydralazine to 50 mg po q 8h if blood pressure remains uncontrolled Hyperlipidemia. She is on Lipitor DVT prophylaxis. On Eliquis Atrial fibrillation. Eliquis on hold due to cath site bleeding Acute blood loss; Hg stable, continue pressure dressing Cardiac cath, bleeding from site, expected outcome, hg stable Findings: Widely patent [id number] LAD stents. Otherwise no significant residual coronary lesions. LVEF 50-55%. Recommend: Medical therapy and RF modification including smoking cessation. OK for cardiac discharge. Hospitalist Physical - Constitutional Vitals: Temp Pulse Resp BP Pulse Ox 98.3 F 77 20 155/76 98 08/05/17 04:05 08/05/17 10:43 08/05/17 11:58 08/05/17 10:43 08/05/17 10:43 General appearance: Present: no acute distress, well-nourished Results - Labs CBC & Chem 7: 08/05/17 06:40 08/04/17 05:10 Labs: Laboratory Last Values WBC 14.8 K/mm3 (4.5-11.0) H 08/05/17 06:40 RBC 3.75 M/mm3 (3.65-5.03) 08/05/17 06:40 Hgb 10.4 gm/dl (10.1-14.3) 08/05/17 06:40 Hct 32.8 % (30.3-42.9) 08/05/17 06:40 MCV 87 fl (79-97) 08/05/17 06:40 MCH 28 pg (28-32) 08/05/17 06:40 MCHC 32 % (30-34) 08/05/17 06:40 RDW 16.0 % (13.2-15.2) H 08/05/17 06:40 Plt Count 257 K/mm3 (140-440) 08/05/17 06:40 Lymph % (Auto) 18.0 % (13.4-35.0) 08/05/17 06:40 [place] % (Auto) 6.3 % (0.0-7.3) 08/05/17 06:40 Eos % (Auto) 1.3 % (0.0-4.3) 08/05/17 06:40 Baso % (Auto) 0.6 % (0.0-1.8) 08/05/17 06:40 Lymph # 2.7 K/mm3 (1.2-5.4) 08/05/17 06:40 [place] # 0.9 K/mm3 (0.0-0.8) H 08/05/17 06:40 Eos # 0.2 K/mm3 (0.0-0.4) 08/05/17 06:40 Baso # 0.1 K/mm3 (0.0-0.1) 08/05/17 06:40 Seg Neutrophils % 73.8 % (40.0-70.0) H 08/05/17 06:40 Seg Neutrophils # 10.9 K/mm3 (1.8-7.7) H 08/05/17 06:40 PT 11.9 Sec. (12.2-14.9) L 08/04/17 05:10 INR 0.89 (0.87-1.13) 08/04/17 05:10 APTT 40.3 Sec. (24.2-36.6) H 08/01/17 14:26 Sodium 140 mmol/L (137-145) 08/04/17 05:10 Potassium 4.2 mmol/L (3.6-5.0) 08/04/17 05:10 Chloride 106.0 mmol/L (98-107) 08/04/17 05:10 Carbon Dioxide 20 mmol/L (22-30) L 08/04/17 05:10 Anion Gap 18 mmol/L 08/04/17 05:10 BUN 25 mg/dL (7-17) H 08/04/17 05:10 Creatinine 1.3 mg/dL (0.7-1.2) H 08/04/17 05:10 Estimated GFR 50 ml/min 08/04/17 05:10 BUN/Creatinine Ratio 19.23 % 08/04/17 05:10 Glucose 116 mg/dL (65-100) H 08/04/17 05:10 POC Glucose 191 (70-105) H 08/05/17 16:55 Hemoglobin A1c 6.8 % (4-6) H 08/01/17 21:05 Calcium 8.7 mg/dL (8.4-10.2) 08/04/17 05:10 Total Bilirubin 0.40 mg/dL (0.1-1.2) 08/02/17 03:06 Direct Bilirubin < 0.2 mg/dL (0-0.2) 08/01/17 13:50 Indirect Bilirubin 0.2 mg/dL 08/01/17 13:50 AST 13 units/L (5-40) 08/02/17 03:06 ALT 11 units/L (7-56) 08/02/17 03:06 Alkaline Phosphatase 67 units/L (35-129) 08/02/17 03:06 Total Creatine Kinase 63 units/L (30-135) 08/02/17 12:10 CK-MB (CK-2) 1.7 ng/mL (0.0-4.0) 08/02/17 12:10 CK-MB (CK-2) Rel Index 2.6 (0-4) 08/02/17 12:10 Troponin T < 0.010 ng/mL (0.00-0.029) 08/02/17 12:10 NT-Pro-B Natriuret Pep 629.7 pg/mL (0-900) 08/01/17 13:50 Total Protein 5.8 g/dL (6.3-8.2) L 08/02/17 03:06 Albumin 3.5 g/dL (3.9-5) L 08/02/17 03:06 Albumin/Globulin Ratio 1.5 % 08/02/17 03:06 Urine Color Yellow (Yellow) 08/01/17 17:04 Urine Turbidity Clear (Clear) 08/01/17 17:04 Urine pH 5.0 (5.0-7.0) 08/01/17 17:04 Ur Specific [place] 1.012 (1.003-1.030) 08/01/17 17:04 Urine Protein <15 mg/dl mg/dL (Negative) 08/01/17 17:04 Urine Glucose (UA) Neg mg/dL (Negative) 08/01/17 17:04 Urine Ketones Neg mg/dL (Negative) 08/01/17 17:04 Urine Blood Neg (Negative) 08/01/17 17:04 Urine Nitrite Neg (Negative) 08/01/17 17:04 Urine Bilirubin Neg (Negative) 08/01/17 17:04 Urine Urobilinogen < 2.0 mg/dL (<2.0) 08/01/17 17:04 Ur Leukocyte Esterase Neg (Negative) 08/01/17 17:04 Urine WBC (Auto) 1.0 /HPF (0.0-6.0) 08/01/17 17:04 Urine RBC (Auto) 1.0 /HPF (0.0-6.0) 08/01/17 17:04 U Epithel Cells (Auto) 4.0 /HPF (0-13.0) 08/01/17 17:04 Urine Mucus Few /HPF 08/01/17 17:04 Urine Opiates Screen Presumptive negative 08/01/17 17:04 Urine Methadone Screen Presumptive negative 08/01/17 17:04 Ur Barbiturates Screen Presumptive negative 08/01/17 17:04 Ur Phencyclidine Scrn Presumptive negative 08/01/17 17:04 Ur Amphetamines Screen Presumptive negative 08/01/17 17:04 U Benzodiazepines Scrn Presumptive negative 08/01/17 17:04 Urine Cocaine Screen Presumptive negative 08/01/17 17:04 U Marijuana (THC) Screen Presumptive negative 08/01/17 17:04 Drugs of Abuse Note Disclamer 08/01/17 17:04
[2017-08-06] MEDS: APRESOLINE PO SCH (06:57)
[2017-08-06] MEDS: MUCOMYST ORAL PO SCH (08:39)
[2017-08-06 09:22] VITALS: BP 148/85
[2017-08-06] MEDS: COREG PO SCH (10:27)
[2017-08-06] MEDS: PEPCID PO SCH (10:27)
[2017-08-06] MEDS: BABY ASPIRIN PO SCH (10:27)
[2017-08-06] MEDS: NORVASC PO SCH (10:27)
[2017-08-06 10:53] LABS: Basophils % (Auto) 0.5 % (0.0-1.8); Eosinophils % (Auto) 3.2 % (0.0-4.3); Hematocrit 32.2 % (30.3-42.9); Hemoglobin 10.7 gm/dl (10.1-14.3); Mean Corpuscular HGB Conc 33 % (30-34); Mean Corpuscular Hemoglobin 29 pg (28-32); Mean Corpuscular Volume 86 fl (79-97); Platelet Count 234 K/mm3 (140-440); Red Blood Count 3.74 M/mm3 (3.65-5.03); White Blood Count 14.2 K/mm3 (4.5-11.0)
[2017-08-06 11:00] LABS: BUN/Creatinine Ratio 19.23; Calcium 8.9 mg/dL (8.4-10.2); Chloride 103.4 mmol/L (98-107); Potassium 3.9 mmol/L (3.6-5.0)
--- NOTE | 2017-08-06 11:07 | Progress Note ---
Assessment and Plan Chest pain [facility] Findings: Widely patent auyx-gvi-[id number] LAD stents. Otherwise no significant residual coronary lesions. LVEF 50-55%. Hx of CAD Paroxysmal Afib on eliquis as an outpatient Tobacco abuse Recommendations: No further bleeding of cardiac cath site. Stable, cardiac diaz for discharge. Eliquis should be restarted at discharge. F/U with [facility] as scheduled Aug.14. Subjective Date of service: 08/06/17 Principal diagnosis: unstable angina Interval history: Patient has no complaints. Dressing to cath site removed. No further bleeding noted. Objective Vital Signs Temp Pulse Resp BP Pulse Ox 08/06/17 07:44 72 97 08/06/17 07:42 75 148/85 96 08/06/17 07:41 73 96 08/06/17 06:57 77 155/90 08/06/17 03:27 97.9 F 76 18 130/78 92 08/05/17 23:33 97.8 F 75 18 113/77 99 08/05/17 22:00 20 08/05/17 19:41 98.1 F 75 18 157/92 98 08/05/17 17:53 22 08/05/17 11:58 20 - Physical Examination General: No Apparent Distress Cardiac: Positive: Reg Rate and Rhythm Incision: Cardiac Cath Site - Labs and Meds CBC 08/06/17 Range/Units 10:20 WBC 14.2 H (4.5-11.0) K/mm3 RBC 3.74 (3.65-5.03) M/mm3 Hgb 10.7 (10.1-14.3) gm/dl Hct 32.2 (30.3-42.9) % Plt Count 234 (140-440) K/mm3 Lymph # 2.3 (1.2-5.4) K/mm3 [place] # 0.8 (0.0-0.8) K/mm3 Eos # 0.5 H (0.0-0.4) K/mm3 Baso # 0.1 (0.0-0.1) K/mm3 Comprehensive Metabolic Panel 08/06/17 Range/Units 10:20 Sodium 140 (137-145) mmol/L Potassium 3.9 (3.6-5.0) mmol/L Chloride 103.4 (98-107) mmol/L Carbon Dioxide 24 (22-30) mmol/L BUN 25 H (7-17) mg/dL Creatinine 1.3 H (0.7-1.2) mg/dL Glucose 155 H (65-100) mg/dL Calcium 8.9 (8.4-10.2) mg/dL - Imaging and Cardiology EKG: report reviewed
--- NOTE | 2017-08-06 11:56 | Discharge Summary ---
Providers - Providers Date of Admission: 08/01/17 15:14 Attending physician: LISS HARTLEY MD 08/02/17 07:22 Consult to Physician [CONS] Routine Consulting Provider: DEV BROWN Reason For Exam: Chest pain Place consult to:: [facility] Notified:: yes If yes, spoke with:: Dr Hawk Time called:: 09:03 08/04/17 13:53 Consult to Cardiac Rehabilitation [CONS] Routine Reason For Exam: Cardiac Rehab Evaluation Primary care physician: RELATIONSHIP EXECUTIVE Hospitalization Condition: Fair Disposition: DC-01 TO HOME OR SELFCARE Core Measure Documentation - Palliative Care Palliative Care/ Comfort Measures: Not Applicable Exam - Constitutional Vitals: Temp Pulse Resp BP Pulse Ox 97.9 F 72 18 148/85 97 08/06/17 03:27 08/06/17 07:44 08/06/17 03:27 08/06/17 07:42 08/06/17 07:44 Plan Follow up with: DEV BROWN MD [Staff Physician] - 7 Days PRIMARY CAREMD [Primary Care Provider] - 3-5 Days Forms: CardCath PCI D/C Instructions Prescriptions: Famotidine [Pepcid] 20 mg PO BID #60 tablet ISOSORBIDE MONOnitrate [Imdur ER] 30 mg PO DAILY #30 tab.er.24h
== END 2017-08-06 11:11 | disposition home or self-care (01) | DRG 287 ==
LOC: ED 13:01 → 4A 15:14
PROVIDERS: ADMIT Internal Medicine; ATTEND Internal Medicine
PROC: 4A023N7 Measurement of Cardiac Sampling and Pressure, Left Heart, Percutaneous Approach (ICD-10-PCS; principal; 2017-08-04)
PROC: B2151ZZ Fluoroscopy of Left Heart using Low Osmolar Contrast (ICD-10-PCS; 2017-08-04)
PROC: B2111ZZ Fluoroscopy of Multiple Coronary Arteries using Low Osmolar Contrast (ICD-10-PCS; 2017-08-04)
DX: R07.9 Chest pain, unspecified (principal); I97.610 Postprocedural hemorrhage of a circulatory system organ or structure following a cardiac catheterization; I25.10 Atherosclerotic heart disease of native coronary artery without angina pectoris; I11.0 Hypertensive heart disease with heart failure; I50.9 Heart failure, unspecified; E11.9 Type 2 diabetes mellitus without complications; F31.9 Bipolar disorder, unspecified; J44.9 Chronic obstructive pulmonary disease, unspecified; F17.200 Nicotine dependence, unspecified, uncomplicated; I48.91 Unspecified atrial fibrillation; E78.5 Hyperlipidemia, unspecified; N28.9 Disorder of kidney and ureter, unspecified; Z79.899 Other long term (current) drug therapy; Z91.013 Allergy to seafood; Z91.018 Allergy to other foods; I25.2 Old myocardial infarction; Z86.73 Personal history of transient ischemic attack (TIA), and cerebral infarction without residual deficits; Z95.5 Presence of coronary angioplasty implant and graft; Z82.49 Family history of ischemic heart disease and other diseases of the circulatory system; Z71.6 Tobacco abuse counseling; Y84.0 Cardiac catheterization as the cause of abnormal reaction of the patient, or of later complication, without mention of misadventure at the time of the procedure; Y92.239 Unspecified place in hospital as the place of occurrence of the external cause
CPT/HCPCS: 36415; 71010; 78452; 80048; 80053; 80074; 80307; 81001; 82550; 82553; 82962; 83036; 83880; 84484; 85025; 85027; 85610; 85730; 93005; 93010; 93017; 93458; 96374; 96375; 99406; A9270-GY; A9502; C1760; C1894; J1170; J1200; J1644; J1650; J1720; J2250; J2270; J2405; J2785; J3010; J7030; J7040; Q9967

== ENCOUNTER 2017-12-17 10:04 | Inpatient (IN) | payer MEDICARE ==
[2017-12-17] MEDS ORDERED: ASPIRIN PO ONE (10:50)
--- NOTE | 2017-12-17 11:10 | Emergency Department Report ---
ED Chest Pain HPI - General Chief Complaint: Chest Pain Stated Complaint: CHEST PAIN Time Seen by Provider: 12/17/17 10:57 Source: patient Mode of arrival: Stretcher Limitations: No Limitations - History of Present Illness Initial Comments: 62-year-old Jocelin female presents to the emergency department by EMS from home with the complaint of some midsternal chest pain that has been going on since about 3:57 AM this morning. She took 2 sublingual nitroglycerin at home and received some aspirin and a sublingual nitroglycerin in route with EMS without much relief. The chest pain is sharp in nature. It is associated with some mild shortness of breath and some nausea without vomiting. She has a past medical history of a previous RI and has a stent placed. She has a history of hypertension, COPD without oxygen dependency, and insulin-dependent diabetes. She does not currently have a primary care physician or sales service rep in this area as she says she recently moved here from [facility]. She had a heart catheterization done in July 2017 that showed an ejection fraction of 50-55% and otherwise patent coronary arteries and/or stents. - Related Data Home Medications Medication Instructions Recorded Confirmed Last Taken Clopidogrel [Plavix] 75 mg PO QDAY 10/20/15 12/17/17 12/16/17 Apixaban [Eliquis] 5 mg PO DAILY 02/24/17 12/17/17 12/16/17 Nitroglycerin [Nitrostat] 0.4 mg SL Q5M PRN 02/24/17 12/17/17 12/16/17 ALBUTEROL Inhaler [ProAir HFA 2 puff IH QID PRN 08/01/17 12/17/17 12/16/17 Inhaler] Carvedilol [Coreg] 25 mg PO BID 08/01/17 12/17/17 12/16/17 Quetiapine Fumarate [Seroquel] 100 mg PO BID 08/01/17 12/17/17 12/16/17 hydrALAZINE [Apresoline TAB] 25 mg PO Q8HR 08/01/17 12/17/17 12/16/17 Aspirin [Aspirin TAB] 325 mg PO QDAY 12/17/17 12/17/17 12/16/17 cloNIDine [Catapres] 0.2 mg PO BID 12/17/17 12/17/17 12/16/17 Allergies Allergy/AdvReac Type Severity Reaction Status Date / Time apple AdvReac Hives Verified 08/01/17 13:02 shell fish Allergy Swelling Uncoded 08/01/17 13:02 Heart Score - HEART Score History: Moderately suspicious EKG: Normal Age: 45-65 Risk factors: > 3 risk factors or hx of atherosclerotic disease Troponin: < normal limit HEART Score: 4 ED Review of Systems ROS: Stated complaint: CHEST PAIN Other details as noted in HPI Comment: All other systems reviewed and negative Constitutional: denies: chills, fever Eyes: denies: eye pain, eye discharge, vision change ENT: denies: ear pain, throat pain Respiratory: shortness of breath. denies: cough Cardiovascular: chest pain. denies: palpitations Gastrointestinal: nausea. denies: abdominal pain, vomiting Genitourinary: denies: urgency, dysuria, discharge Musculoskeletal: denies: back pain, joint swelling, arthralgia Skin: denies: rash, lesions Neurological: denies: headache, weakness, paresthesias ED Past Medical Hx - Past Medical History Hx Hypertension: Yes Hx CVA: Yes Hx Heart Attack/AMI: Yes Hx Congestive Heart Failure: Yes Hx Diabetes: Yes Hx Renal Disease: Yes (RENAL INSUFFICIENCY) Hx Psychiatric Treatment: Yes (BIPOLAR/SCHIZOPHRENIA) Hx COPD: Yes Additional medical history: HIGH CHOLESTEROL - Surgical History Past Surgical History?: Yes Hx Coronary Stent: Yes (x 2 in May 2015) Additional Surgical History: stent placement x 2 in 2014, knee surgery 11/2017 - Social History Smoking Status: Current Every Day Smoker Substance Use Type: None - Medications Home Medications: Home Medications Medication Instructions Recorded Confirmed Last Taken Type Clopidogrel [Plavix] 75 mg PO QDAY 10/20/15 12/17/17 12/16/17 History Apixaban [Eliquis] 5 mg PO DAILY 02/24/17 12/17/17 12/16/17 History Nitroglycerin [Nitrostat] 0.4 mg SL Q5M PRN 02/24/17 12/17/17 12/16/17 History ALBUTEROL Inhaler [ProAir HFA 2 puff IH QID PRN 08/01/17 12/17/17 12/16/17 History Inhaler] Carvedilol [Coreg] 25 mg PO BID 08/01/17 12/17/17 12/16/17 History Quetiapine Fumarate [Seroquel] 100 mg PO BID 08/01/17 12/17/17 12/16/17 History hydrALAZINE [Apresoline TAB] 25 mg PO Q8HR 08/01/17 12/17/17 12/16/17 History Aspirin [Aspirin TAB] 325 mg PO QDAY 12/17/17 12/17/17 12/16/17 History cloNIDine [Catapres] 0.2 mg PO BID 12/17/17 12/17/17 12/16/17 History ED Physical Exam - General Limitations: No Limitations - Other Other exam information: GENERAL: The patient is well-developed well-nourished. HENT: Normocephalic. Atraumatic. Patient has moist mucous membranes. EYES: Extraocular motions are intact. Pupils equal reactive to light bilaterally. NECK: Supple. Trachea is midline. CHEST/LUNGS: Clear to auscultation. There is no respiratory distress noted. Chest pain is not reproducible to palpation chest wall. HEART/CARDIOVASCULAR: Regular. There is no tachycardia. There is no murmur. ABDOMEN: Abdomen is soft, nontender. Patient has normal bowel sounds. There is no abdominal distention. SKIN: Skin is warm and dry. NEURO: The patient is awake, alert, and oriented. The patient is cooperative. The patient has no focal neurologic deficits. The patient has normal speech. MUSCULOSKELETAL: There is no tenderness or deformity. There is no limitation range of motion. There is no evidence of acute injury. ED Course Vital Signs 12/17/17 12/17/17 12/17/17 10:34 10:35 10:45 Temperature 98.5 F Pulse Rate 72 70 Respiratory 20 11 L 16 Rate Blood Pressure 187/112 187/112 O2 Sat by Pulse 100 100 100 Oximetry 12/17/17 12/17/17 12/17/17 11:00 11:15 11:31 Temperature Pulse Rate 68 69 67 Respiratory 12 14 20 Rate Blood Pressure 186/114 186/114 186/114 O2 Sat by Pulse 100 100 100 Oximetry 12/17/17 12/17/17 12/17/17 11:45 12:00 13:30 Temperature Pulse Rate 70 68 Respiratory 15 16 Rate Blood Pressure 186/114 199/164 O2 Sat by Pulse 99 100 100 Oximetry 12/17/17 12/17/17 12/17/17 13:45 14:18 14:45 Temperature Pulse Rate 71 Respiratory 15 Rate Blood Pressure 213/113 194/110 O2 Sat by Pulse 100 98 Oximetry BLAS score - Blas Score Age > 65: (0) No Aspirin use within the Past 7 Days: (0) No 3 or more CAD Risk Factors: (1) Yes 2 or more Angina events in past 24 hrs: (1) Yes Known CAD with more than 50% Stenosis: (1) Yes Elevated Cardiac Markers: (0) No ST Deviation Greater than 0.5mm: (0) No BLAS Score: 3 ED Medical Decision Making - Lab Data Result diagrams: 12/17/17 10:59 12/17/17 10:59 - EKG Data -: EKG Interpreted by Me EKG shows normal: sinus rhythm, axis, intervals, QRS complexes, ST-T waves Rate: normal - EKG Data When compared to previous EKG there are: no significant change Interpretation: unchanged when compared t (08/07/17) - Radiology Data Radiology results: report reviewed, image reviewed interpreted by me: Chest x-ray does not show any acute process. There are no pleural effusions, obvious pneumonia and there is no pneumothorax. LUNG SCAN, VENTILATION AND PERFUSION: History: Short of breath. Technique: 5mci of Tc99m MAA was infused for the perfusion images. 15mci XE 133 gas was inhaled for the ventilatory images. Correlation is made with a chest x-ray dated 12/17/17. Findings: Inhalation of Xenon gas demonstrates heterogeneous distribution of the radiotracer throughout both lungs. There appears to be mild retention of the radiotracer within the left lung on the equilibrium images. After injection of Technetium 99m macroaggregated albumin gamma camera imaging of the lungs in multiple projections demonstrates normal pulmonary contours with a homogeneous distribution of activity. No focal areas of perfusion deficiency are identified. IMPRESSION: Low probability for pulmonary embolus. Mild retention of the radiotracer particularly in the left lung suggesting mild obstructive pulmonary disease. Transcribed By: TTR Dictated By: DELLA VENEGAS JR, MD Electronically Authenticated By: DELLA VENEGAS JR, MD Signed Date/Time: 12/17/17 1440 - Medical Decision Making Patient with a history of coronary artery disease with previous RI and stents presents with some midsternal chest pain. Elevated d-dimer so V/Q scan done that was low probability for PE. Negative troponins 2 this far. EKG does not show any signs of ST elevation RI. Chest x-ray does not show any acute process. Patient will be admitted for further evaluation and treatment is been accepted for admission by hospitalist, Dr. Henning. - Differential Diagnosis RI, PE, CHF, Pneumonia, COPD Critical Care Time: No Critical care attestation.: If time is entered above; I have spent that time in minutes in the direct care of this critically ill patient, excluding procedure time. ED Disposition Clinical Impression: Acute chest pain, Hypertensive urgency Hypertension Qualifiers: Hypertension type: essential hypertension Qualified Code(s): I10 - Essential ( primary) hypertension Disposition: DC-09 OP ADMIT IP TO THIS HOSP Is pt being admited?: Yes Condition: Stable Time of Disposition: 15:01
[2017-12-17 11:24] LABS: Basophils # (Auto) 0.1 K/mm3 (0.0-0.1); Basophils % (Auto) 0.9 % (0.0-1.8); Eosinophils # (Auto) 0.3 K/mm3 (0.0-0.4); Hematocrit 31.8 % (30.3-42.9); Hemoglobin 10.2 gm/dl (10.1-14.3); Lymphocytes # (Auto) 2.2 K/mm3 (1.2-5.4); Lymphocytes % (Auto) 17.6 % (13.4-35.0); Mean Corpuscular HGB Conc 32 % (30-34); Mean Corpuscular Hemoglobin 27 pg (28-32); Mean Corpuscular Volume 85 fl (79-97); Monocytes # (Auto) 0.6 K/mm3 (0.0-0.8); Monocytes % (Auto) 4.7 % (0.0-7.3); Red Blood Count 3.76 M/mm3 (3.65-5.03); Red Cell Distribution Width 18.8 % (13.2-15.2)
[2017-12-17 11:38] LABS: BUN/Creatinine Ratio 21; Blood Urea Nitrogen 30 mg/dL (7-17); Calcium 9.1 mg/dL (8.4-10.2); Hemolysis Index 10
--- NOTE | 2017-12-17 11:40 | XRay Report ---
AP CHEST: HISTORY: chest pain AP view of the chest demonstrates a normal mediastinal and cardiac contour with clear lungs and normal bony and soft tissue structures. IMPRESSION: Unremarkable AP chest. No change since 08/01/17.
[2017-12-17 11:59] LABS: Platelet Count 278 K/mm3 (140-440)
[2017-12-17] MEDS ORDERED: MORPHINE IV ONE ×2 (13:28→16:19)
[2017-12-17] MEDS ORDERED: APRESOLINE IV ONE ×2 (13:54→17:17)
[2017-12-17] MEDS ORDERED: HEPARIN ONE (14:09)
[2017-12-17] MEDS ORDERED: APRESOLINE ONE (14:12)
[2017-12-17] MEDS: HEPARIN SUB-Q SCH ×2 (14:18→21:18)
--- NOTE | 2017-12-17 14:47 | Nuclear Medicine Report ---
LUNG SCAN, VENTILATION AND PERFUSION: History: Short of breath. Technique: 5mci of Tc99m MAA was infused for the perfusion images. 15mci XE 133 gas was inhaled for the ventilatory images. Correlation is made with a chest x-ray dated 12/17/17. Findings: Inhalation of Xenon gas demonstrates heterogeneous distribution of the radiotracer throughout both lungs. There appears to be mild retention of the radiotracer within the left lung on the equilibrium images. After injection of Technetium 99m macroaggregated albumin gamma camera imaging of the lungs in multiple projections demonstrates normal pulmonary contours with a homogeneous distribution of activity. No focal areas of perfusion deficiency are identified. IMPRESSION: Low probability for pulmonary embolus. Mild retention of the radiotracer particularly in the left lung suggesting mild obstructive pulmonary disease.
[2017-12-17] MEDS ORDERED: DILAUDID IV PRN (17:16)
[2017-12-17] MEDS: DILAUDID IV PRN (19:52)
[2017-12-17] MEDS ORDERED: TORADOL IV ONE (20:21)
[2017-12-17] MEDS ORDERED: TORADOL ONE (20:22)
[2017-12-17] MEDS ORDERED: ZOFRAN IV ONE (20:45)
[2017-12-17] MEDS ORDERED: PHENERGAN PR ONE (20:46)
--- NOTE | 2017-12-17 23:03 | History and Physical Report ---
History of Present Illness Date of examination: 12/17/17 Date of admission: 12/17/17 13:29 Chief complaint: Chest pain since AM History of present illness: History of Present Illness In 62-year-old Jocelin female with PMH significant for HTN Asthma and bipolar disorder presents to the emergency department by EMS from home with the complaint of some midsternal chest pain that has been going on since about 3 :57 AM this morning. She took 2 sublingual nitroglycerin at home and received some aspirin and a sublingual nitroglycerin in route with EMS without much relief. The chest pain is sharp in nature. It is associated with some mild shortness of breath and some nausea without vomiting. She has a past medical history of a previous ID and has a stent placed. She has a history of hypertension, COPD without oxygen dependency, and insulin-dependent diabetes. 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 She had a heart catheterization done in July 2017 that showed an ejection fraction of 50-55% and otherwise patent coronary arteries and/or stents. After eval patient developed severe abd pain when CT abdomen was ordered-NAF Past Medical History Hx Hypertension: Yes Hx CVA: Yes Hx Heart Attack/AMI: Yes Hx Congestive Heart Failure: Yes Hx Diabetes: Yes Hx Renal Disease: Yes (RENAL INSUFFICIENCY) Hx Psychiatric Treatment: Yes (BIPOLAR/SCHIZOPHRENIA) Hx COPD: Yes Additional medical history: HIGH CHOLESTEROL Surgical History Past Surgical History?: Yes Hx Coronary Stent: Yes (x 2 in May 2015) Additional Surgical History: stent placement x 2 in 2014, knee surgery 11/2017 Social History Smoking Status: Current Every Day Smoker Substance Use Type: None Fam Hx Htn - Medications Home Medications: Home Medications Medication Instructions Recorded Confirmed Last Taken Type Clopidogrel [Plavix] 75 mg PO QDAY 10/20/15 12/17/17 12/16/17 History Apixaban [Eliquis] 5 mg PO DAILY 02/24/17 12/17/17 12/16/17 History Nitroglycerin [Nitrostat] 0.4 mg SL Q5M PRN 02/24/17 12/17/17 12/16/17 History ALBUTEROL Inhaler [ProAir HFA 2 puff IH QID PRN 08/01/17 12/17/17 12/16/17 History Inhaler] Carvedilol [Coreg] 25 mg PO BID 08/01/17 12/17/17 12/16/17 History Quetiapine Fumarate [Seroquel] 100 mg PO BID 08/01/17 12/17/17 12/16/17 History hydrALAZINE [Apresoline TAB] 25 mg PO Q8HR 08/01/17 12/17/17 12/16/17 History Aspirin [Aspirin TAB] 325 mg PO QDAY 12/17/17 12/17/17 12/16/17 History cloNIDine [Catapres] 0.2 mg PO BID 12/17/17 12/17/17 12/16/17 History Review of Systems ROS: Stated complaint: CHEST PAIN Other details as noted in HPI Comment: All other systems reviewed and negative Constitutional: denies: chills, fever Eyes: denies: eye pain, eye discharge, vision change ENT: denies: ear pain, throat pain Respiratory: shortness of breath. denies: cough Cardiovascular: chest pain. denies: palpitations Gastrointestinal: nausea. denies: abdominal pain, vomiting Genitourinary: denies: urgency, dysuria, discharge Musculoskeletal: denies: back pain, joint swelling, arthralgia Skin: denies: rash, lesions Neurological: denies: headache, weakness, paresthesias Medications and Allergies Allergies Allergy/AdvReac Type Severity Reaction Status Date / Time apple AdvReac Hives Verified 08/01/17 13:02 shell fish Allergy Swelling Uncoded 08/01/17 13:02 Home Medications Medication Instructions Recorded Confirmed Last Taken Type Clopidogrel [Plavix] 75 mg PO QDAY 10/20/15 12/17/17 12/16/17 History Apixaban [Eliquis] 5 mg PO DAILY 02/24/17 12/17/17 12/16/17 History Nitroglycerin [Nitrostat] 0.4 mg SL Q5M PRN 02/24/17 12/17/17 12/16/17 History ALBUTEROL Inhaler [ProAir HFA 2 puff IH QID PRN 08/01/17 12/17/17 12/16/17 History Inhaler] Carvedilol [Coreg] 25 mg PO BID 08/01/17 12/17/17 12/16/17 History Quetiapine Fumarate [Seroquel] 100 mg PO BID 08/01/17 12/17/17 12/16/17 History hydrALAZINE [Apresoline TAB] 25 mg PO Q8HR 08/01/17 12/17/17 12/16/17 History Aspirin [Aspirin TAB] 325 mg PO QDAY 12/17/17 12/17/17 12/16/17 History cloNIDine [Catapres] 0.2 mg PO BID 12/17/17 12/17/17 12/16/17 History Active Meds: Active Medications Heparin Sodium (Porcine) (Heparin) 5,000 unit SUB-Q Q8HR [facility] Last Admin: 12/17/17 21:18 Dose: 5,000 unit Hydromorphone HCl (Dilaudid) 2 mg IV Q4H PRN PRN Reason: Pain , Severe (7-10) Last Admin: 12/17/17 19:52 Dose: 2 mg Exam - Constitutional Vitals: Temp Pulse Resp BP Pulse Ox 98 F 98 H 20 173/106 96 12/17/17 19:54 12/17/17 19:54 12/17/17 20:23 12/17/17 19:54 12/17/17 19:54 General appearance: Present: no acute distress, well-nourished - EENT Eyes: Present: PERRL ENT: hearing intact, clear oral mucosa - Neck Neck: Present: supple, normal ROM - Respiratory Respiratory effort: normal Respiratory: bilateral: CTA - Cardiovascular Heart rate: 80 Rhythm: regular Heart Sounds: Present: S1 & S2. Absent: rub, click - Extremities Extremities: no ischemia, pulses intact, pulses symmetrical, No edema Peripheral Pulses: within normal limits - Abdominal General gastrointestinal: Present: soft, non-tender, non-distended, normal bowel sounds Female genitourinary: Present: normal - Integumentary Integumentary: Present: clear, warm, dry - Musculoskeletal Musculoskeletal: gait normal, strength equal bilaterally - Psychiatric Psychiatric: appropriate mood/affect, intact judgment & insight - Neurologic Neurologic: CNII-XII intact, moves all extremities - Allied Health Allied health notes reviewed: nursing, case management Results - Labs CBC & Chem 7: 12/17/17 10:59 12/17/17 10:59 Labs: Laboratory Last Values WBC 12.6 K/mm3 (4.5-11.0) H 12/17/17 10:59 RBC 3.76 M/mm3 (3.65-5.03) 12/17/17 10:59 Hgb 10.2 gm/dl (10.1-14.3) 12/17/17 10:59 Hct 31.8 % (30.3-42.9) 12/17/17 10:59 MCV 85 fl (79-97) 12/17/17 10:59 MCH 27 pg (28-32) L 12/17/17 10:59 MCHC 32 % (30-34) 12/17/17 10:59 RDW 18.8 % (13.2-15.2) H 12/17/17 10:59 Plt Count 278 K/mm3 (140-440) 12/17/17 10:59 Lymph % (Auto) 17.6 % (13.4-35.0) 12/17/17 10:59 Iron % (Auto) 4.7 % (0.0-7.3) 12/17/17 10:59 Eos % (Auto) 2.0 % (0.0-4.3) 12/17/17 10:59 Baso % (Auto) 0.9 % (0.0-1.8) 12/17/17 10:59 Lymph # 2.2 K/mm3 (1.2-5.4) 12/17/17 10:59 Iron # 0.6 K/mm3 (0.0-0.8) 12/17/17 10:59 Eos # 0.3 K/mm3 (0.0-0.4) 12/17/17 10:59 Baso # 0.1 K/mm3 (0.0-0.1) 12/17/17 10:59 Seg Neutrophils % 74.8 % (40.0-70.0) H 12/17/17 10:59 Seg Neutrophils # 9.4 K/mm3 (1.8-7.7) H 12/17/17 10:59 D-Dimer 930.17 ng/mlDDU (0-234) H 12/17/17 10:39 Sodium 141 mmol/L (137-145) 12/17/17 10:59 Potassium 3.9 mmol/L (3.6-5.0) 12/17/17 10:59 Chloride 104.1 mmol/L (98-107) 12/17/17 10:59 Carbon Dioxide 22 mmol/L (22-30) 12/17/17 10:59 Anion Gap 19 mmol/L 12/17/17 10:59 BUN 30 mg/dL (7-17) H 12/17/17 10:59 Creatinine 1.4 mg/dL (0.7-1.2) H 12/17/17 10:59 Estimated GFR 46 ml/min 12/17/17 10:59 BUN/Creatinine Ratio 21 % 12/17/17 10:59 Glucose 109 mg/dL (65-100) H 12/17/17 10:59 POC Glucose 106 (70-105) H 12/17/17 17:50 Calcium 9.1 mg/dL (8.4-10.2) 12/17/17 10:59 Troponin T < 0.010 ng/mL (0.00-0.029) 12/17/17 17:07 NT-Pro-B Natriuret Pep 2071 pg/mL (0-900) H 12/17/17 10:39 Short CBC 12/17/17 Range/Units 10:59 WBC 12.6 H (4.5-11.0) K/mm3 Hgb 10.2 (10.1-14.3) gm/dl Hct 31.8 (30.3-42.9) % Plt Count 278 (140-440) K/mm3 [facility] 12/17/17 10:59 Sodium 141 Potassium 3.9 Chloride 104.1 Carbon Dioxide 22 BUN 30 H Creatinine 1.4 H Glucose 109 H Calcium 9.1 Cardiac Enzymes 12/17/17 12/17/17 Range/Units 10:59 17:07 Troponin T < 0.010 < 0.010 (0.00-0.029) ng/mL - Imaging and Cardiology EKG: report reviewed Chest x-ray: report reviewed Assessment and Plan Advance Directives: Yes (Full code) VTE prophylaxis?: Chemical Plan of care discussed with patient/family: Yes - Patient Problems (1) Acute chest pain Current Visit: Yes Status: Acute Plan to address problem: Chest pain w/u Serial CE's Lexiscan in AM Costochondritis unlikely.No reproducible pain Gerd in differential (2) T2DM (type 2 diabetes mellitus) Current Visit: Yes Status: Chronic Qualifiers: Diabetes mellitus complication status: without complication Diabetes mellitus chcf insulin use: without chcf use Qualified Code(s): E11.9 - Type 2 diabetes mellitus without complications Plan to address problem: Check A1c.Coverage and adust dosage if necessary (3) HTN (hypertension) Current Visit: Yes Status: Chronic Qualifiers: Hypertension type: essential hypertension Qualified Code(s): I10 - Essential (primary) hypertension Plan to address problem: Cont antihypertensives (4) CAD (coronary artery disease) Current Visit: No Status: Acute Qualifiers: Coronary Disease-Associated Artery/Lesion type: [place] artery [place] vs. transplanted heart: [place] heart Associated angina: angina presence unspecified Qualified Code(s): I25.10 - Atherosclerotic heart disease of [place] coronary artery without angina pectoris Plan to address problem: Cont Plavix (5) Bipolar 1 disorder Current Visit: Yes Status: Chronic Plan to address problem: Cont Seroquel (6) DORENE (acute kidney injury) Current Visit: Yes Status: Acute Plan to address problem: Cr 1.4 Fluid challenge (7) HLD (hyperlipidemia) Current Visit: Yes Status: Chronic Qualifiers: Hyperlipidemia type: mixed hyperlipidemia Qualified Code(s): E78.2 - Mixed hyperlipidemia Plan to address problem: Cont statins (8) Asthma Current Visit: Yes Status: Inactive Plan to address problem: Cont Bronchodilators prn (9) Abdominal pain Current Visit: Yes Status: Acute Qualifiers: Abdominal location: epigastric Qualified Code(s): R10.13 - Epigastric pain Plan to address problem: Possible Gastritis Initiated on Protonix (10) DVT prophylaxis Current Visit: Yes Status: Acute Plan to address problem: on Lovenox
[2017-12-18] MEDS ORDERED: PROAIR IH PRN (00:38)
[2017-12-18] MEDS ORDERED: PROVENTIL IH PRN (00:48)
[2017-12-18] MEDS: CATAPRES PO SCH ×3 (02:01→21:55)
[2017-12-18] MEDS: APRESOLINE PO SCH ×3 (02:01→17:37)
[2017-12-18] MEDS: COREG PO SCH ×3 (02:06→21:55)
--- NOTE | 2017-12-18 02:09 | Cat Scan Report ---
FINAL REPORT PROCEDURE: CT ABDOMEN WO CON TECHNIQUE: Computerized axial tomography of the abdomen was performed without intravenous contrast. This study is performed without intravascular contrast material and its sensitivity for abdominal and pelvic pathology, including neoplasms, inflammation, abscess, free fluid, thrombosis, arterial dissection and infarction, is reduced compared with a contrast enhanced study. HISTORY: abdonimal pain epigastric pain COMPARISON: No prior studies are available for comparison. FINDINGS: Visualized lower thorax: There is atelectasis at the lung bases. Heart size is normal. There is a small pericardial effusion.. Liver: Normal size and attenuation. Spleen: Normal size and attenuation. Gallbladder and biliary system: Normal. Pancreas: Normal. Adrenals: There are bilateral adrenal adenomas measuring 3 centimeters on the right and 2 centimeters on the left.. Kidneys: There are bilateral kidney cysts. There are no kidney stones. There is no hydronephrosis.. GI tract: Stomach is distended. There is no bowel obstruction, colitis or enteritis. The appendix is normal.. Lymph nodes and mesentery: Normal. Vasculature: Normal. Peritoneum: There is no ascites or free air.. Musculoskeletal structures: No significant abnormality. Other: None . IMPRESSION: There is atelectasis at the lung bases. Heart size is normal. There is a small pericardial effusion.. There are bilateral adrenal adenomas measuring 3 centimeters on the right and 2 centimeters on the left.. There are bilateral kidney cysts. There are no kidney stones. There is no hydronephrosis.. Stomach is distended. There is no bowel obstruction, colitis or enteritis. The appendix is normal.. There is no ascites or free air..
[2017-12-18] MEDS: DILAUDID IV PRN ×4 (04:03→21:56)
[2017-12-18] MEDS: HEPARIN SUB-Q SCH (05:17)
[2017-12-18] MEDS ORDERED: PROTONIX IV SCH (10:00)
[2017-12-18] MEDS ORDERED: NITROSTAT SL PRN (10:03)
[2017-12-18] MEDS: PLAVIX PO SCH (10:47)
[2017-12-18] MEDS: PROTONIX PO SCH ×2 (10:47→23:01)
[2017-12-18] MEDS: ASPIRIN PO SCH (10:48)
[2017-12-18] MEDS ORDERED: DIOVAN PO SCH (11:00)
[2017-12-18 11:29] LABS: Calcium 9.3 mg/dL (8.4-10.2)
[2017-12-18] MEDS ORDERED: ZOFRAN IV PRN (12:01)
[2017-12-18] MEDS: ELIQUIS PO SCH ×2 (13:10→21:54)
--- NOTE | 2017-12-18 13:20 | Consultation ---
History of Present Illness Consult date: 12/18/17 Consult reason: chest pain History of present illness: This is a 62yr old woman with a history of coronary artery disease. A recent cardiac cath showed widely patent LAD stents. No significant residual coronary lesions. LVEF 50-55%. Patient is on eliquis for oral anticoagulation for history of paroxysmal atrial fibrillation. Patient also continues to smoke. Patient was brought to this hospital with complaints of chest pain and epigastric pain. A cardiac consultation was requested for evaluation of her chest pain. Patient denies shortness of breath. Since her admission, patient has been experiencing nausea with vomiting. Patient denies pre-syncope or syncope. Her ECG is a sinus rhythm, no acute ischemic changes. Medications and Allergies Allergies Allergy/AdvReac Type Severity Reaction Status Date / Time apple AdvReac Hives Verified 08/01/17 13:02 shell fish Allergy Swelling Uncoded 08/01/17 13:02 Home Medications Medication Instructions Recorded Confirmed Last Taken Type Clopidogrel [Plavix] 75 mg PO QDAY 10/20/15 12/17/17 12/16/17 History Apixaban [Eliquis] 5 mg PO DAILY 02/24/17 12/17/17 12/16/17 History Nitroglycerin [Nitrostat] 0.4 mg SL Q5M PRN 02/24/17 12/17/17 12/16/17 History ALBUTEROL Inhaler [ProAir HFA 2 puff IH QID PRN 08/01/17 12/17/17 12/16/17 History Inhaler] Carvedilol [Coreg] 25 mg PO BID 08/01/17 12/17/17 12/16/17 History Quetiapine Fumarate [Seroquel] 100 mg PO BID 08/01/17 12/17/17 12/16/17 History hydrALAZINE [Apresoline TAB] 25 mg PO Q8HR 08/01/17 12/17/17 12/16/17 History Aspirin [Aspirin TAB] 325 mg PO QDAY 12/17/17 12/17/17 12/16/17 History cloNIDine [Catapres] 0.2 mg PO BID 12/17/17 12/17/17 12/16/17 History Active Meds: Active Medications Albuterol (Proventil) 2.5 mg IH Q4HRT PRN PRN Reason: Shortness Of Breath Apixaban (Eliquis) 5 mg PO BID [facility] PRN Reason: Protocol Last Admin: 12/18/17 13:10 Dose: 5 mg Aspirin (Aspirin) 325 mg PO QDAY [facility] Last Admin: 12/18/17 10:48 Dose: 325 mg Carvedilol (Coreg) 25 mg PO BID [facility] Last Admin: 12/18/17 10:49 Dose: 25 mg Clonidine HCl (Catapres) 0.2 mg PO BID [facility] Last Admin: 12/18/17 10:48 Dose: 0.2 mg Clopidogrel Bisulfate (Plavix) 75 mg PO QDAY [facility] Last Admin: 12/18/17 10:47 Dose: 75 mg Hydralazine HCl (Apresoline) 25 mg PO Q8H [facility] Last Admin: 12/18/17 10:47 Dose: 25 mg Hydromorphone HCl (Dilaudid) 2 mg IV Q4H PRN PRN Reason: Pain , Severe (7-10) Last Admin: 12/18/17 12:03 Dose: 2 mg Nitroglycerin (Nitrostat) 0.4 mg SL Q5M PRN PRN Reason: Chest Pain Ondansetron HCl (Zofran) 4 mg IV Q4H PRN PRN Reason: Nausea And Vomiting Last Admin: 12/18/17 13:03 Dose: 4 mg Pantoprazole Sodium (Protonix) 40 mg PO BID [facility] Last Admin: 12/18/17 10:47 Dose: 40 mg Quetiapine Fumarate (Seroquel) 100 mg PO BID [facility] Last Admin: 12/18/17 10:47 Dose: 100 mg Valsartan (Diovan) 320 mg PO QDAY [facility] Last Admin: 12/18/17 10:48 Dose: 320 mg Physical Examination Vital Signs Temp Pulse Resp BP Pulse Ox 98.5 F 72 20 187/112 100 12/17/17 10:34 12/17/17 10:34 12/17/17 10:34 12/17/17 10:34 12/17/17 10:34 General appearance: no acute distress HEENT: Positive: PERRL Neck: Positive: trachea midline Cardiac: Positive: Reg Rate and Rhythm Results 12/17/17 10:59 12/18/17 10:47 Comprehensive Metabolic Panel 12/18/17 Range/Units 10:47 Sodium 146 H (137-145) mmol/L Potassium 4.0 (3.6-5.0) mmol/L Chloride 99.9 (98-107) mmol/L Carbon Dioxide 29 D (22-30) mmol/L BUN 38 H (7-17) mg/dL Creatinine 1.8 H (0.7-1.2) mg/dL Glucose 158 H (65-100) mg/dL Calcium 9.3 (8.4-10.2) mg/dL Assessment and Plan Chest pain Epigastic pain with n/v Acute renal failure Hx of CAD [facility] 07/2017: Widely patent [id number] LAD stents. Otherwise no significant residual coronary lesions. LVEF 50-55%. Paroxysmal Afib on eliquis as an outpatient Tobacco abuse Recommendations: Persantine thallium stress test for further assessment of chest pain. Medical therapy for coronary artery disease and atrial fibrillation.
--- NOTE | 2017-12-18 16:24 | Progress Note ---
Assessment and Plan Assessment and plan: 62-year-old Jocelin female with PMH significant for HTN Asthma and bipolar disorder presents to the emergency department by EMS from home with the complaint of some midsternal chest pain that has been going on since about 3 :57 AM this morning. She took 2 sublingual nitroglycerin at home and received some aspirin and a sublingual nitroglycerin in route with EMS without much relief. Acute chest pain Serial CE's negative, Lexiscan scheduled for AM Costochondritis unlikely. No reproducible pain Gerd in differential T2DM (type 2 diabetes mellitus) ADA diet, Accu-Cheks before meals and at bedtime, SSI Check A1c Hypertensive urgency Diovan initiated along with current antihypertensives, currently controlled, hydralazine when necessary CAD (coronary artery disease) Cont Plavix Bipolar 1 disorder Cont Seroquel DORENE (acute kidney injury) IV fluids for now, renal ultrasound and nephrology consult if no improvement HLD (hyperlipidemia) Cont statins Asthma Cont Bronchodilators prn Abdominal pain Initiated on Protonix Paroxysmal atrial fibrillation Continue Eliquis DVT prophylaxis SCDs History Interval history: Patient seen and examined this morning. She continues to complain of chest pain along with nausea and one time vomiting. She denies shortness of breath. Hospitalist Physical - Constitutional Vitals: Temp Pulse Resp BP Pulse Ox 97.9 F 100 H 18 140/93 91 12/18/17 12:45 12/18/17 14:00 12/18/17 12:45 12/18/17 12:45 12/18/17 12:45 General appearance: Present: no acute distress, well-nourished - EENT Eyes: Present: PERRL, EOM intact ENT: hearing intact, clear oral mucosa - Neck Neck: Present: supple, normal ROM - Respiratory Respiratory effort: normal Respiratory: bilateral: CTA - Cardiovascular Rhythm: regular Heart Sounds: Present: S1 & S2 - Extremities Extremities: no ischemia, No edema - Abdominal General gastrointestinal: soft, non-tender, non-distended - Integumentary Integumentary: Present: clear, warm, dry - Psychiatric Psychiatric: appropriate mood/affect, cooperative - Neurologic Neurologic: CNII-XII intact, moves all extremities - Allied Health Allied health notes reviewed: nursing Results - Labs CBC & Chem 7: 12/17/17 10:59 12/18/17 10:47 Labs: Laboratory Last Values WBC 12.6 K/mm3 (4.5-11.0) H 12/17/17 10:59 RBC 3.76 M/mm3 (3.65-5.03) 12/17/17 10:59 Hgb 10.2 gm/dl (10.1-14.3) 12/17/17 10:59 Hct 31.8 % (30.3-42.9) 12/17/17 10:59 MCV 85 fl (79-97) 12/17/17 10:59 MCH 27 pg (28-32) L 12/17/17 10:59 MCHC 32 % (30-34) 12/17/17 10:59 RDW 18.8 % (13.2-15.2) H 12/17/17 10:59 Plt Count 278 K/mm3 (140-440) 12/17/17 10:59 Lymph % (Auto) 17.6 % (13.4-35.0) 12/17/17 10:59 [place] % (Auto) 4.7 % (0.0-7.3) 12/17/17 10:59 Eos % (Auto) 2.0 % (0.0-4.3) 12/17/17 10:59 Baso % (Auto) 0.9 % (0.0-1.8) 12/17/17 10:59 Lymph # 2.2 K/mm3 (1.2-5.4) 12/17/17 10:59 [place] # 0.6 K/mm3 (0.0-0.8) 12/17/17 10:59 Eos # 0.3 K/mm3 (0.0-0.4) 12/17/17 10:59 Baso # 0.1 K/mm3 (0.0-0.1) 12/17/17 10:59 Seg Neutrophils % 74.8 % (40.0-70.0) H 12/17/17 10:59 Seg Neutrophils # 9.4 K/mm3 (1.8-7.7) H 12/17/17 10:59 D-Dimer 930.17 ng/mlDDU (0-234) H 12/17/17 10:39 Sodium 146 mmol/L (137-145) H 12/18/17 10:47 Potassium 4.0 mmol/L (3.6-5.0) 12/18/17 10:47 Chloride 99.9 mmol/L (98-107) 12/18/17 10:47 Carbon Dioxide 29 mmol/L (22-30) D 12/18/17 10:47 Anion Gap 21 mmol/L 12/18/17 10:47 BUN 38 mg/dL (7-17) H 12/18/17 10:47 Creatinine 1.8 mg/dL (0.7-1.2) H 12/18/17 10:47 Estimated GFR 34 ml/min 12/18/17 10:47 BUN/Creatinine Ratio 21 % 12/18/17 10:47 Glucose 158 mg/dL (65-100) H 12/18/17 10:47 POC Glucose 106 (70-105) H 12/17/17 17:50 Calcium 9.3 mg/dL (8.4-10.2) 12/18/17 10:47 Troponin T < 0.010 ng/mL (0.00-0.029) 12/17/17 17:07 NT-Pro-B Natriuret Pep 2071 pg/mL (0-900) H 12/17/17 10:39
[2017-12-18] MEDS ORDERED: LOVENOX SUB-Q SCH (22:00)
[2017-12-19] MEDS: APRESOLINE PO SCH ×3 (00:19→17:55)
[2017-12-19 06:15] LABS: Basophils # (Auto) 0.1 K/mm3 (0.0-0.1); Basophils % (Auto) 0.5 % (0.0-1.8); Eosinophils # (Auto) 0.2 K/mm3 (0.0-0.4); Eosinophils % (Auto) 1.6 % (0.0-4.3); Hematocrit 30.3 % (30.3-42.9); Hemoglobin 9.6 gm/dl (10.1-14.3); Lymphocytes # (Auto) 2.7 K/mm3 (1.2-5.4); Lymphocytes % (Auto) 20.9 % (13.4-35.0); Mean Corpuscular HGB Conc 32 % (30-34); Mean Corpuscular Hemoglobin 27 pg (28-32); Mean Corpuscular Volume 85 fl (79-97); Monocytes # (Auto) 0.8 K/mm3 (0.0-0.8); Monocytes % (Auto) 6.1 % (0.0-7.3); Platelet Count 303 K/mm3 (140-440); Red Blood Count 3.58 M/mm3 (3.65-5.03); Red Cell Distribution Width 18.7 % (13.2-15.2)
[2017-12-19 06:28] LABS: Calcium 8.4 mg/dL (8.4-10.2)
[2017-12-19] MEDS ORDERED: LEXISCAN IV ONE ×2 (09:12→09:13)
--- NOTE | 2017-12-19 09:40 | Progress Note ---
Assessment and Plan Chest pain Epigastic pain with n/v Acute renal failure Hx of CAD [facility] 07/2017: Widely patent [id number] LAD stents. Otherwise no significant residual coronary lesions. LVEF 50-55%. Paroxysmal Afib on eliquis as an outpatient Acute COPD exacerbation Active wheezing and bibasilar rales on exam Recommendations: Lexiscan MPI will be deferred today due to significant wheezing on exam Pulmonary management of her acute COPD exacerbation is warranted Discontinue valsartan due to acute rise in creatinine levels Ischemic evaluation will be rescheduled once COPD exacerbation is resolved Subjective Date of service: 12/19/17 Principal diagnosis: Chest Pain Interval history: Patient was scheduled for lexiscan MPI this morning but test had to be cancelled due to significant wheezing on exam Objective Vital Signs Temp Pulse Pulse Resp Resp BP Pulse Ox 12/19/17 05:22 97.6 F 71 18 121/60 94 12/19/17 01:00 98.5 F 71 18 117/78 92 12/18/17 22:00 75 12/18/17 20:55 18 12/18/17 20:34 99.5 F 70 18 132/83 95 12/18/17 17:37 90 12/18/17 17:29 97.7 F 79 18 133/81 92 12/18/17 14:00 100 H 12/18/17 12:45 97.9 F 85 18 140/93 91 12/18/17 10:00 80 20 18 98 - Physical Examination HEENT: Positive: PERRL Neck: Positive: trachea midline Cardiac: Positive: Reg Rate and Rhythm Lungs: Positive: Decreased Breath Sounds, Rales, Wheezes Abdomen: Positive: Soft Extremities: Absent: edema - Labs and Meds CBC 12/19/17 Range/Units 05:36 WBC 13.0 H (4.5-11.0) K/mm3 RBC 3.58 L (3.65-5.03) M/mm3 Hgb 9.6 L (10.1-14.3) gm/dl Hct 30.3 (30.3-42.9) % Plt Count 303 (140-440) K/mm3 Lymph # 2.7 (1.2-5.4) K/mm3 [place] # 0.8 (0.0-0.8) K/mm3 Eos # 0.2 (0.0-0.4) K/mm3 Baso # 0.1 (0.0-0.1) K/mm3 Comprehensive Metabolic Panel 12/18/17 12/19/17 Range/Units 10:47 05:36 Sodium 146 H 137 D (137-145) mmol/L Potassium 4.0 4.0 (3.6-5.0) mmol/L Chloride 99.9 98.3 (98-107) mmol/L Carbon Dioxide 29 D 23 (22-30) mmol/L BUN 38 H 52 H (7-17) mg/dL Creatinine 1.8 H 2.6 H (0.7-1.2) mg/dL Glucose 158 H 119 H (65-100) mg/dL Calcium 9.3 8.4 (8.4-10.2) mg/dL - Imaging and Cardiology EKG: report reviewed
[2017-12-19] MEDS ORDERED: NACL 0.9% 500 ML 500 ML IV SCH (10:00)
[2017-12-19] MEDS: DILAUDID IV PRN ×2 (10:50→21:48)
[2017-12-19] MEDS: PLAVIX PO SCH (10:51)
[2017-12-19] MEDS: ELIQUIS PO SCH ×2 (10:51→21:49)
[2017-12-19] MEDS: PROTONIX PO SCH ×2 (10:51→21:49)
[2017-12-19] MEDS: CATAPRES PO SCH ×2 (10:51→21:49)
[2017-12-19] MEDS: ASPIRIN PO SCH (10:51)
[2017-12-19] MEDS: COREG PO SCH ×2 (10:51→21:49)
--- NOTE | 2017-12-19 16:40 | Progress Note ---
Assessment and Plan Assessment and plan: 62-year-old Jocelin female with PMH significant for HTN Asthma and bipolar disorder presents to the emergency department by EMS from home with the complaint of some midsternal chest pain that has been going on since about 3 :57 AM this morning. She took 2 sublingual nitroglycerin at home and received some aspirin and a sublingual nitroglycerin in route with EMS without much relief. Acute chest pain Serial CE's negative, Lexiscan scheduled for AM Costochondritis unlikely. No reproducible pain Gerd in differential T2DM (type 2 diabetes mellitus) ADA diet, Accu-Cheks before meals and at bedtime, SSI Check A1c Hypertensive urgency Urgency now resolved, continue current antihypertensives, hydralazine when necessary CAD (coronary artery disease) Cont Plavix Bipolar 1 disorder Cont Seroquel DORENE (acute kidney injury) IV fluids, renal ultrasound ordered HLD (hyperlipidemia) Cont statins Asthma Cont Bronchodilators prn Abdominal pain Initiated on Protonix Paroxysmal atrial fibrillation Continue Eliquis DVT prophylaxis SCDs History Interval history: Patient seen and examined this morning. She continues to complain of nausea, chest pain along with generalized abdominal pain which has been ongoing for the past 2 months. She denies shortness of breath and vomiting Hospitalist Physical - Constitutional Vitals: Temp Pulse Resp BP Pulse Ox 98.0 F 78 18 149/76 96 12/19/17 12:21 12/19/17 12:21 12/19/17 12:21 12/19/17 12:21 12/19/17 12:21 General appearance: Present: no acute distress, well-nourished - EENT Eyes: Present: PERRL, EOM intact ENT: hearing intact, clear oral mucosa - Neck Neck: Present: supple, normal ROM - Respiratory Respiratory effort: normal Respiratory: bilateral: wheezing - Cardiovascular Rhythm: regular Heart Sounds: Present: S1 & S2 - Extremities Extremities: no ischemia, No edema - Abdominal General gastrointestinal: soft, tender, non-distended - Integumentary Integumentary: Present: clear, warm, dry - Psychiatric Psychiatric: appropriate mood/affect, cooperative - Neurologic Neurologic: CNII-XII intact, moves all extremities - Allied Health Allied health notes reviewed: nursing Results - Labs CBC & Chem 7: 12/19/17 05:36 12/19/17 05:36 Labs: Laboratory Last Values WBC 13.0 K/mm3 (4.5-11.0) H 12/19/17 05:36 RBC 3.58 M/mm3 (3.65-5.03) L 12/19/17 05:36 Hgb 9.6 gm/dl (10.1-14.3) L 12/19/17 05:36 Hct 30.3 % (30.3-42.9) 12/19/17 05:36 MCV 85 fl (79-97) 12/19/17 05:36 MCH 27 pg (28-32) L 12/19/17 05:36 MCHC 32 % (30-34) 12/19/17 05:36 RDW 18.7 % (13.2-15.2) H 12/19/17 05:36 Plt Count 303 K/mm3 (140-440) 12/19/17 05:36 Lymph % (Auto) 20.9 % (13.4-35.0) 12/19/17 05:36 [place] % (Auto) 6.1 % (0.0-7.3) 12/19/17 05:36 Eos % (Auto) 1.6 % (0.0-4.3) 12/19/17 05:36 Baso % (Auto) 0.5 % (0.0-1.8) 12/19/17 05:36 Lymph # 2.7 K/mm3 (1.2-5.4) 12/19/17 05:36 [place] # 0.8 K/mm3 (0.0-0.8) 12/19/17 05:36 Eos # 0.2 K/mm3 (0.0-0.4) 12/19/17 05:36 Baso # 0.1 K/mm3 (0.0-0.1) 12/19/17 05:36 Seg Neutrophils % 70.9 % (40.0-70.0) H 12/19/17 05:36 Seg Neutrophils # 9.2 K/mm3 (1.8-7.7) H 12/19/17 05:36 D-Dimer 930.17 ng/mlDDU (0-234) H 12/17/17 10:39 Sodium 137 mmol/L (137-145) D 12/19/17 05:36 Potassium 4.0 mmol/L (3.6-5.0) 12/19/17 05:36 Chloride 98.3 mmol/L (98-107) 12/19/17 05:36 Carbon Dioxide 23 mmol/L (22-30) 12/19/17 05:36 Anion Gap 20 mmol/L 12/19/17 05:36 BUN 52 mg/dL (7-17) H 12/19/17 05:36 Creatinine 2.6 mg/dL (0.7-1.2) H 12/19/17 05:36 Estimated GFR 23 ml/min 12/19/17 05:36 BUN/Creatinine Ratio 20 % 12/19/17 05:36 Glucose 119 mg/dL (65-100) H 12/19/17 05:36 POC Glucose 106 (70-105) H 12/17/17 17:50 Hemoglobin A1c 5.6 % (4-6) 12/19/17 05:36 Calcium 8.4 mg/dL (8.4-10.2) 12/19/17 05:36 Troponin T < 0.010 ng/mL (0.00-0.029) 12/17/17 17:07 NT-Pro-B Natriuret Pep 2071 pg/mL (0-900) H 12/17/17 10:39
--- NOTE | 2017-12-19 18:57 | Ultrasound Report ---
FINAL REPORT EXAM: US RENAL BILAT HISTORY: acute kidney injury TECHNIQUE: Ultrasound kidneys PRIORS: Correlated with prior CT of December 17, 2017 FINDINGS: Right kidney is 11.7 x 4.6 x 4.5 centimeters cortical thickness 1.3 centimeters Left kidney is 13.4 x 5.5 x 5.3 centimeters. There are numerous right renal cysts. Seven of these are noted. The largest seen is 1.8 x 1.4 x 1.6 centimeters. Cortical thickness 1.3 centimeters There are multiple left renal cysts 6 of these are identified. Largest seen is 3.4 x 3.3 x 3.0 centimeters. Both kidneys demonstrate increased renal echogenicity bilaterally No evidence for hydronephrosis. No shadowing echogenic foci observed. IMPRESSION: Multiple bilateral renal cysts Increased renal echogenicity likely reflecting underlying medical renal disease No evidence for obstructive uropathy
--- NOTE | 2017-12-19 19:19 | Consultation ---
History of Present Illness Consult date: 12/19/17 Reason for consult: chest pain, COPD History of present illness: PULMONARY CONSULTATION This is 62 year old female history of COPD,hypertension,CHF, Hypercholesteremia, Insulin dependent DM and bipolar disorder admitted with chest pain.Patient received sulingual nitroglycerin and aspirin. associated with chest pain shortness breath and nausea.Patient has history of OK and stent placement in the past.Patient also has history of cva and renal insufficiency.Patient recently moved from [place] to this area.Patient has long history of smoking. Still smoking . Counselled her to stop smoking.Denies alcohol or drug abuse.Allergic to Apple and shelfish. Patient also complained abdominal pain.CT of abdomen reported no active findings. Patients D dimer elevated. Perfusion lung scan obtained reported low probability for pulmonary emboli. Past History Past Medical History: acute OK, CAD, COPD, diabetes, hypertension, hyperlipidemia, renal failure, stroke Past Surgical History: PTCA Social history: smoking Medications and Allergies Allergies Allergy/AdvReac Type Severity Reaction Status Date / Time apple AdvReac Hives Verified 08/01/17 13:02 shell fish Allergy Swelling Uncoded 08/01/17 13:02 Home Medications Medication Instructions Recorded Confirmed Last Taken Type Clopidogrel [Plavix] 75 mg PO QDAY 10/20/15 12/17/17 12/16/17 History Apixaban [Eliquis] 5 mg PO DAILY 02/24/17 12/17/17 12/16/17 History Nitroglycerin [Nitrostat] 0.4 mg SL Q5M PRN 02/24/17 12/17/17 12/16/17 History ALBUTEROL Inhaler [ProAir HFA 2 puff IH QID PRN 08/01/17 12/17/17 12/16/17 History Inhaler] Carvedilol [Coreg] 25 mg PO BID 08/01/17 12/17/17 12/16/17 History Quetiapine Fumarate [Seroquel] 100 mg PO BID 08/01/17 12/17/17 12/16/17 History hydrALAZINE [Apresoline TAB] 25 mg PO Q8HR 08/01/17 12/17/17 12/16/17 History Aspirin [Aspirin TAB] 325 mg PO QDAY 12/17/17 12/17/17 12/16/17 History cloNIDine [Catapres] 0.2 mg PO BID 12/17/17 12/17/17 12/16/17 History Active Meds: Active Medications Albuterol (Proventil) 2.5 mg IH Q4HRT PRN PRN Reason: Shortness Of Breath Albuterol/Ipratropium (Duoneb *Not For Prn Use*) 1 ampul IH Q6HRT [facility] Apixaban (Eliquis) 5 mg PO BID [facility] PRN Reason: Protocol Last Admin: 12/19/17 10:51 Dose: 5 mg Aspirin (Aspirin) 325 mg PO QDAY [facility] Last Admin: 12/19/17 10:51 Dose: 325 mg Budesonide (Pulmicort) 0.5 mg IH Q12HRT [facility] Carvedilol (Coreg) 25 mg PO BID [facility] Last Admin: 12/19/17 10:51 Dose: 25 mg Clonidine HCl (Catapres) 0.2 mg PO BID [facility] Last Admin: 12/19/17 10:51 Dose: 0.2 mg Clopidogrel Bisulfate (Plavix) 75 mg PO QDAY [facility] Last Admin: 12/19/17 10:51 Dose: 75 mg Hydralazine HCl (Apresoline) 25 mg PO Q8H [facility] Last Admin: 12/19/17 17:55 Dose: 25 mg Hydromorphone HCl (Dilaudid) 2 mg IV Q4H PRN PRN Reason: Pain , Severe (7-10) Last Admin: 12/19/17 10:50 Dose: 2 mg Sodium Chloride (Nacl 0.9% 500 Ml) 500 mls @ 50 mls/hr IV DIRECT [facility] Stop: 12/19/17 20:00 Last Admin: 12/19/17 10:50 Dose: 50 mls/hr Methylprednisolone Sodium Succinate (Solu-Medrol) 40 mg IV Q8HR [facility] Last Admin: 12/19/17 17:54 Dose: 40 mg Nitroglycerin (Nitrostat) 0.4 mg SL Q5M PRN PRN Reason: Chest Pain Ondansetron HCl (Zofran) 4 mg IV Q4H PRN PRN Reason: Nausea And Vomiting Last Admin: 12/18/17 13:03 Dose: 4 mg Pantoprazole Sodium (Protonix) 40 mg PO BID [facility] Last Admin: 12/19/17 10:51 Dose: 40 mg Quetiapine Fumarate (Seroquel) 100 mg PO BID [facility] Last Admin: 12/19/17 10:51 Dose: 100 mg Review of Systems All systems: negative Physical Examination Vital signs: Vital Signs Temp Pulse Resp BP Pulse Ox 98.5 F 72 20 187/112 100 12/17/17 10:34 12/17/17 10:34 12/17/17 10:34 12/17/17 10:34 12/17/17 10:34 General appearance: no acute distress, alert Eyes: non-icteric ENT: oropharynx moist Neck: supple, no JVD Ascultation: Bilateral: diminished breath sounds (Prolonged expiratory phase.) Cardiovascular: regular rate and rhythm Gastrointestinal: normoactive bowel sounds, soft, non-tender Integumentary: normal Extremities: no cyanosis, no edema Musculoskeletal: no deformities Gait: other (resting in bed.) normal mental status, non-focal exam, pupils equal and round, CN II-XII normal anxious Results - Laboratory Findings CBC and BMP: 12/19/17 05:36 12/20/17 05:48 PT/INR, D-dimer D-Dimer 930.17 ng/mlDDU (0-234) H 12/17/17 10:39 Abnormal lab findings: Abnormal Labs 12/17/17 12/17/17 12/17/17 10:39 10:39 10:59 WBC 12.6 H RBC Hgb MCH 27 L RDW 18.8 H Seg Neutrophils % 74.8 H Seg Neutrophils # 9.4 H D-Dimer 930.17 H Sodium BUN Creatinine Glucose POC Glucose NT-Pro-B Natriuret Pep 2070 H 12/17/17 12/17/17 12/18/17 10:59 17:50 10:47 WBC RBC Hgb MCH RDW Seg Neutrophils % Seg Neutrophils # D-Dimer Sodium 146 H BUN 30 H 38 H Creatinine 1.4 H 1.8 H Glucose 109 H 158 H POC Glucose 106 H NT-Pro-B Natriuret Pep 12/19/17 12/19/17 05:36 05:36 WBC 13.0 H RBC 3.58 L Hgb 9.6 L MCH 27 L RDW 18.7 H Seg Neutrophils % 70.9 H Seg Neutrophils # 9.2 H D-Dimer Sodium BUN 52 H Creatinine 2.6 H Glucose 119 H POC Glucose NT-Pro-B Natriuret Pep - Diagnostic Findings Chest x-ray: report reviewed (unremarkable AP chest has been reported.), image reviewed Assessment and Plan This is 62 year old female history of COPD,hypertension,CHF, Hypercholesteremia, Insulin dependent DM and bipolar disorder admitted with chest pain.Patient received sulingual nitroglycerin and aspirin. associated with chest pain shortness breath and nausea.Patient has history of OK and stent placement in the past.Patient also has history of cva and renal insufficiency.Patient recently moved from [place] to this area.Patient has long history of smoking. Still smoking . Counselled her to stop smoking.Denies alcohol or drug abuse.Allergic to Apple and shelfish. Patient also complained abdominal pain.CT of abdomen reported no active findings. Patients D dimer elevated. Perfusion lung scan obtained reported low probability for pulmonary emboli. - Patient Problems (1) Acute chest pain Current Visit: Yes Status: Acute Plan to address problem: Management as per cardiology. (2) Abdominal pain Current Visit: Yes Status: Acute Qualifiers: Abdominal location: epigastric Qualified Code(s): R10.13 - Epigastric pain Plan to address problem: Management as per primary care and gastroenterology. (3) HTN (hypertension) Current Visit: Yes Status: Chronic Qualifiers: Hypertension type: essential hypertension Qualified Code(s): I10 - Essential (primary) hypertension Plan to address problem: Management as per primary care, (4) DORENE (acute kidney injury) Current Visit: Yes Status: Acute Plan to address problem: Management as per primary care and nephrology. (5) COPD exacerbation Current Visit: No Status: Acute Plan to address problem: O2 2 litres via nasal canula. Albuterol/atrovent aerosol treatments q 6 hours. Continue I/V solumedral Patient is on Apixaban Continue protonix. Counselled to stop smoking.
[2017-12-19] MEDS: DUONEB *Not for PRN Use IH SCH (20:21)
[2017-12-19] MEDS: PULMICORT IH SCH (20:28)
[2017-12-19] MEDS: NACL 0.45% 1000 ML 1,000 ML IV SCH (23:17)
[2017-12-20] MEDS: APRESOLINE PO SCH ×2 (01:36→12:55)
[2017-12-20] MEDS ORDERED: LEXISCAN IV ONE ×2 (07:59→08:07)
[2017-12-20 08:45] LABS: Calcium 8.4 mg/dL (8.4-10.2)
--- NOTE | 2017-12-20 08:50 | Progress Note ---
Assessment and Plan Assessment and plan: 62-year-old Jocelin female with PMH significant for HTN Asthma and bipolar disorder who pw chest pain Chest pain, MPI neg, likely due to htn urgency HTN urgency; optimize meds, hold ELYSIA/ARB in light of DORENE DORENE/Vasomotor nephropathy; renal us neg, image reviewed, neg for obs, continue IVF, renal consult appreciated T2DM: cont SSI CAD (coronary artery disease): Cont Plavix Bipolar 1 disorder; Cont Seroquel HLD (hyperlipidemia); Cont statins copd exacerbation; Cont Bronchodilators and steroids Paroxysmal atrial fibrillation with hypercoaguable state Continue Eliquis, cont coreg DVT prophylaxis SCDs History Interval history: no cp,no sob, no abdominal pain, no fever Hospitalist Physical - Constitutional Vitals: Temp Pulse Resp BP Pulse Ox 98.6 F 72 20 145/85 94 12/20/17 05:43 12/20/17 05:43 12/20/17 05:43 12/20/17 05:43 12/20/17 05:43 General appearance: Present: no acute distress, well-nourished - EENT Eyes: Present: PERRL ENT: hearing intact - Neck Neck: Present: supple - Respiratory Respiratory effort: normal Respiratory: bilateral: CTA - Cardiovascular Rhythm: regular Heart Sounds: Present: S1 & S2 - Extremities Extremities: no ischemia Peripheral Pulses: within normal limits - Abdominal General gastrointestinal: soft, non-tender - Integumentary Integumentary: Present: clear, warm, dry - Psychiatric Psychiatric: appropriate mood/affect, memory intact, cooperative - Neurologic Neurologic: CNII-XII intact, moves all extremities Results - Labs CBC & Chem 7: 12/19/17 05:36 12/21/17 05:22 Labs: Laboratory Last Values WBC 13.0 K/mm3 (4.5-11.0) H 12/19/17 05:36 RBC 3.58 M/mm3 (3.65-5.03) L 12/19/17 05:36 Hgb 9.6 gm/dl (10.1-14.3) L 12/19/17 05:36 Hct 30.3 % (30.3-42.9) 12/19/17 05:36 MCV 85 fl (79-97) 12/19/17 05:36 MCH 27 pg (28-32) L 12/19/17 05:36 MCHC 32 % (30-34) 12/19/17 05:36 RDW 18.7 % (13.2-15.2) H 12/19/17 05:36 Plt Count 303 K/mm3 (140-440) 12/19/17 05:36 Lymph % (Auto) 20.9 % (13.4-35.0) 12/19/17 05:36 [place] % (Auto) 6.1 % (0.0-7.3) 12/19/17 05:36 Eos % (Auto) 1.6 % (0.0-4.3) 12/19/17 05:36 Baso % (Auto) 0.5 % (0.0-1.8) 12/19/17 05:36 Lymph # 2.7 K/mm3 (1.2-5.4) 12/19/17 05:36 [place] # 0.8 K/mm3 (0.0-0.8) 12/19/17 05:36 Eos # 0.2 K/mm3 (0.0-0.4) 12/19/17 05:36 Baso # 0.1 K/mm3 (0.0-0.1) 12/19/17 05:36 Seg Neutrophils % 70.9 % (40.0-70.0) H 12/19/17 05:36 Seg Neutrophils # 9.2 K/mm3 (1.8-7.7) H 12/19/17 05:36 D-Dimer 930.17 ng/mlDDU (0-234) H 12/17/17 10:39 Sodium 135 mmol/L (137-145) L 12/20/17 05:48 Potassium 4.5 mmol/L (3.6-5.0) 12/20/17 05:48 Chloride 99.5 mmol/L (98-107) 12/20/17 05:48 Carbon Dioxide 18 mmol/L (22-30) L 12/20/17 05:48 Anion Gap 22 mmol/L 12/20/17 05:48 BUN 54 mg/dL (7-17) H 12/20/17 05:48 Creatinine 2.4 mg/dL (0.7-1.2) H 12/20/17 05:48 Estimated GFR 25 ml/min 12/20/17 05:48 BUN/Creatinine Ratio 23 % 12/20/17 05:48 Glucose 247 mg/dL (65-100) H 12/20/17 05:48 POC Glucose 106 (70-105) H 12/17/17 17:50 Hemoglobin A1c 5.6 % (4-6) 12/19/17 05:36 Calcium 8.4 mg/dL (8.4-10.2) 12/20/17 05:48 Total Creatine Kinase 37 units/L (30-135) 12/19/17 21:46 Troponin T < 0.010 ng/mL (0.00-0.029) 12/17/17 17:07 NT-Pro-B Natriuret Pep 1407 pg/mL (0-900) H 12/19/17 21:46
--- NOTE | 2017-12-20 10:42 | Progress Note ---
Assessment and Plan 1. Chest pain resolved 2. History of coronary artery disease status post PCI to the LAD. Normal LV ejection fraction 50-55% 3. History of COPD and asthma 4. Essential hypertension 5. Hyperlipidemia 6. Bipolar disorder Plan. Patient is currently stable she is to have Lexiscan MPI today if negative may be discharged home today Subjective Date of service: 12/20/17 Principal diagnosis: Chest Pain Interval history: No cardiac symptoms. Objective Vital Signs Temp Pulse Pulse Resp Resp BP Pulse Ox 12/20/17 09:28 82 153/79 12/20/17 09:27 85 151/79 12/20/17 09:26 83 148/77 12/20/17 09:25 83 144/77 12/20/17 09:24 77 142/73 12/20/17 08:31 69 175/95 12/20/17 05:43 98.6 F 72 20 145/85 94 12/20/17 00:25 98.8 F 74 20 145/84 91 12/19/17 20:22 69 12 12/19/17 20:13 70 12/19/17 20:04 99.1 F 71 18 126/76 95 12/19/17 19:49 70 12/19/17 16:19 98.1 F 70 19 134/78 96 12/19/17 12:21 98.0 F 78 18 149/76 96 - Physical Examination General: Appears Well, No Apparent Distress HEENT: Positive: PERRL Neck: Positive: trachea midline Cardiac: Lungs: Neuro: Abdomen: Positive: Soft /Rectal: Normal Prostate, No Masses Skin: Musculoskeletal: No Fluid Collection, No Pain, Normal Range of Motion Gait: Normal Gait Extremities: Absent: edema - Labs and Meds Comprehensive Metabolic Panel 12/20/17 Range/Units 05:48 Sodium 135 L (137-145) mmol/L Potassium 4.5 (3.6-5.0) mmol/L Chloride 99.5 (98-107) mmol/L Carbon Dioxide 18 L (22-30) mmol/L BUN 54 H (7-17) mg/dL Creatinine 2.4 H (0.7-1.2) mg/dL Glucose 247 H (65-100) mg/dL Calcium 8.4 (8.4-10.2) mg/dL - Imaging and Cardiology EKG: report reviewed
[2017-12-20] MEDS: PULMICORT IH SCH ×2 (10:44→19:27)
[2017-12-20] MEDS: DUONEB *Not for PRN Use IH SCH ×4 (10:44→19:27)
--- NOTE | 2017-12-20 12:21 | Progress Note ---
Assessment and Plan This is 62 year old female history of COPD,hypertension,CHF, Hypercholesteremia, Insulin dependent DM and bipolar disorder admitted with chest pain.Patient received sulingual nitroglycerin and aspirin. associated with chest pain shortness breath and nausea.Patient has history of CA and stent placement in the past.Patient also has history of cva and renal insufficiency.Patient recently moved from [place] to this area.Patient has long history of smoking. Still smoking . Counselled her to stop smoking.Denies alcohol or drug abuse.Allergic to Apple and shelfish. Patient also complained abdominal pain.CT of abdomen reported no active findings. Patients D dimer elevated. Perfusion lung scan obtained reported low probability for pulmonary emboli. 12/20/17 Patient sleeping at this time on room air.O2 saturation 100%. - Patient Problems (1) Acute chest pain Current Visit: Yes Status: Acute Plan to address problem: Management as per cardiology. (2) Abdominal pain Current Visit: Yes Status: Acute Qualifiers: Abdominal location: epigastric Qualified Code(s): R10.13 - Epigastric pain Plan to address problem: Management as per primary care and gastroenterology. (3) HTN (hypertension) Current Visit: Yes Status: Chronic Qualifiers: Hypertension type: essential hypertension Qualified Code(s): I10 - Essential (primary) hypertension Plan to address problem: Management as per primary care, (4) DORENE (acute kidney injury) Current Visit: Yes Status: Acute Plan to address problem: Management as per primary care and nephrology. (5) COPD exacerbation Current Visit: No Status: Acute Plan to address problem: O2 2 litres via nasal canula. Albuterol/atrovent aerosol treatments q 6 hours. Continue I/V solumedral Patient is on Apixaban Continue protonix. Counselled to stop smoking. Subjective Date of service: 12/20/17 Principal diagnosis: Chest Pain Interval history: Patient sleeping at this time on room air.O2 saturation 100%. Objective Vital Signs - 12hr 12/20/17 12/20/17 12/20/17 00:25 05:43 08:31 Temperature 98.8 F 98.6 F Pulse Rate 74 72 69 Pulse Rate [ Bilateral] Respiratory 20 20 Rate Respiratory Rate [Bilateral ] Blood Pressure 145/84 145/85 175/95 O2 Sat by Pulse 91 94 Oximetry 12/20/17 12/20/17 12/20/17 09:24 09:25 09:26 Temperature Pulse Rate 77 83 83 Pulse Rate [ Bilateral] Respiratory Rate Respiratory Rate [Bilateral ] Blood Pressure 142/73 144/77 148/77 O2 Sat by Pulse Oximetry 12/20/17 12/20/17 12/20/17 09:27 09:28 10:40 Temperature Pulse Rate 85 82 Pulse Rate [ 85 Bilateral] Respiratory Rate Respiratory 18 Rate [Bilateral ] Blood Pressure 151/79 153/79 O2 Sat by Pulse Oximetry 12/20/17 11:03 Temperature Pulse Rate Pulse Rate [ 83 Bilateral] Respiratory Rate Respiratory 18 Rate [Bilateral ] Blood Pressure O2 Sat by Pulse Oximetry Constitutional: no acute distress, alert Eyes: non-icteric ENT: oropharynx moist Neck: supple, no JVD Ascultation: Bilateral: diminished breath sounds (Prolonged expiratory phase.) Cardiovascular: regular rate and rhythm Gastrointestinal: normoactive bowel sounds, soft, non-tender Integumentary: normal Extremities: no cyanosis, no edema Neurologic: normal mental status, non-focal exam, pupils equal and round, CN II- XII normal Psychiatric: anxious CBC and BMP: 12/19/17 05:36 12/20/17 05:48 ABG, PT/INR, D-dimer: PT/INR, D-dimer D-Dimer 930.17 ng/mlDDU (0-234) H 12/17/17 10:39 Abnormal lab findings: Abnormal Labs 12/17/17 12/17/17 12/17/17 10:39 10:39 10:59 WBC 12.6 H RBC Hgb MCH 27 L RDW 18.8 H Seg Neutrophils % 74.8 H Seg Neutrophils # 9.4 H D-Dimer 930.17 H Sodium Carbon Dioxide BUN Creatinine Glucose POC Glucose NT-Pro-B Natriuret Pep 2070 H 12/17/17 12/17/17 12/18/17 10:59 17:50 10:47 WBC RBC Hgb MCH RDW Seg Neutrophils % Seg Neutrophils # D-Dimer Sodium 146 H Carbon Dioxide BUN 30 H 38 H Creatinine 1.4 H 1.8 H Glucose 109 H 158 H POC Glucose 106 H NT-Pro-B Natriuret Pep 12/19/17 12/19/17 12/19/17 05:36 05:36 21:46 WBC 13.0 H RBC 3.58 L Hgb 9.6 L MCH 27 L RDW 18.7 H Seg Neutrophils % 70.9 H Seg Neutrophils # 9.2 H D-Dimer Sodium Carbon Dioxide BUN 52 H Creatinine 2.6 H Glucose 119 H POC Glucose NT-Pro-B Natriuret Pep 1407 H 12/20/17 05:48 WBC RBC Hgb MCH RDW Seg Neutrophils % Seg Neutrophils # D-Dimer Sodium 135 L Carbon Dioxide 18 L BUN 54 H Creatinine 2.4 H Glucose 247 H POC Glucose NT-Pro-B Natriuret Pep Additional Studies: Perfusion lung scan reported low probability for pulmonary emboli.
[2017-12-20] MEDS: PLAVIX PO SCH (12:53)
[2017-12-20] MEDS: ASPIRIN PO SCH (12:53)
[2017-12-20] MEDS: PROTONIX PO SCH ×2 (12:54→22:16)
[2017-12-20] MEDS: COREG PO SCH ×2 (12:54→22:15)
--- NOTE | 2017-12-20 13:40 | Consultation ---
History of Present Illness - Reason for Consult Consult date: 12/20/17 acute renal failure - History of Present Illness Ms Palmer is a 62 y/o F with a PMH of HTN, COPD, DM2, CKD, CAD s/p PCI who has been admitted to the [facility] with chest pain. Pt has also had some SHOB and nausea. Pt denies vomiting, diarrhea, dysuria. 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 She was found to have a Cr of 1.4 on admission that has increased. Pt does endorse taking NSAIDs at home. She is making urine. ROS: As in HPI otherwise 12 point review of systems -ve Past History Past Medical History: acute RI, CAD, COPD, diabetes, hypertension, hyperlipidemia, renal failure, stroke Past Surgical History: PTCA Social history: smoking Medications and Allergies Allergies Allergy/AdvReac Type Severity Reaction Status Date / Time apple AdvReac Hives Verified 08/01/17 13:02 shell fish Allergy Swelling Uncoded 08/01/17 13:02 Home Medications Medication Instructions Recorded Confirmed Last Taken Type Clopidogrel [Plavix] 75 mg PO QDAY 10/20/15 12/17/17 12/16/17 History Apixaban [Eliquis] 5 mg PO DAILY 02/24/17 12/17/17 12/16/17 History Nitroglycerin [Nitrostat] 0.4 mg SL Q5M PRN 02/24/17 12/17/17 12/16/17 History ALBUTEROL Inhaler [ProAir HFA 2 puff IH QID PRN 08/01/17 12/17/17 12/16/17 History Inhaler] Carvedilol [Coreg] 25 mg PO BID 08/01/17 12/17/17 12/16/17 History Quetiapine Fumarate [Seroquel] 100 mg PO BID 08/01/17 12/17/17 12/16/17 History hydrALAZINE [Apresoline TAB] 25 mg PO Q8HR 08/01/17 12/17/17 12/16/17 History Aspirin [Aspirin TAB] 325 mg PO QDAY 12/17/17 12/17/17 12/16/17 History cloNIDine [Catapres] 0.2 mg PO BID 02/07/18 02/07/18 02/06/18 History Active Meds: Active Medications Albuterol (Proventil) 2.5 mg IH Q4HRT PRN PRN Reason: Shortness Of Breath Albuterol/Ipratropium (Duoneb *Not For Prn Use*) 1 ampul IH Q6HRT [facility] Last Admin: 12/20/17 12:07 Dose: Not Given Apixaban (Eliquis) 5 mg PO BID [facility] PRN Reason: Protocol Last Admin: 12/19/17 21:49 Dose: 5 mg Aspirin (Aspirin) 325 mg PO QDAY [facility] Last Admin: 12/20/17 12:53 Dose: 325 mg Budesonide (Pulmicort) 0.5 mg IH Q12HRT [facility] Last Admin: 12/20/17 10:44 Dose: 0.5 mg Carvedilol (Coreg) 25 mg PO BID [facility] Last Admin: 12/20/17 12:54 Dose: 25 mg Clonidine HCl (Catapres) 0.2 mg PO BID [facility] Last Admin: 12/19/17 21:49 Dose: 0.2 mg Clopidogrel Bisulfate (Plavix) 75 mg PO QDAY [facility] Last Admin: 12/20/17 12:53 Dose: 75 mg Hydralazine HCl (Apresoline) 25 mg PO Q8H [facility] Last Admin: 12/20/17 12:55 Dose: 25 mg Hydromorphone HCl (Dilaudid) 2 mg IV Q4H PRN PRN Reason: Pain , Severe (7-10) Last Admin: 12/19/17 21:48 Dose: 2 mg Sodium Chloride (Nacl 0.45% 1000 Ml) 1,000 mls @ 125 mls/hr IV DIRECT [facility] Last Admin: 12/19/17 23:17 Dose: 125 mls/hr Methylprednisolone Sodium Succinate (Solu-Medrol) 40 mg IV Q8HR [facility] Last Admin: 12/20/17 05:46 Dose: 40 mg Nitroglycerin (Nitrostat) 0.4 mg SL Q5M PRN PRN Reason: Chest Pain Ondansetron HCl (Zofran) 4 mg IV Q4H PRN PRN Reason: Nausea And Vomiting Last Admin: 12/18/17 13:03 Dose: 4 mg Pantoprazole Sodium (Protonix) 40 mg PO BID [facility] Last Admin: 12/20/17 12:54 Dose: 40 mg Quetiapine Fumarate (Seroquel) 100 mg PO BID [facility] Last Admin: 12/20/17 12:53 Dose: 100 mg Exam - Vital Signs Vital signs: Vital Signs Temp Pulse Resp BP Pulse Ox 98.5 F 72 20 187/112 100 12/17/17 10:34 12/17/17 10:34 12/17/17 10:34 12/17/17 10:34 12/17/17 10:34 - Physical Exam Narrative exam: GE: AAOX3 HEENT: PERRLA Neck: No JVD Chest: CTAB CVS: RRR Abd: Soft/NT/ND/BS+ Ext: No cce UG: No rooney Psyche: Appropriate mood Results - Lab Results 12/19/17 05:36 12/20/17 05:48 Most recent lab results Calcium 8.4 mg/dL (8.4-10.2) 12/20/17 05:48 Assessment and Plan Acute Kidney injury possibly prerenal/ATN from NSAIDs: Chronic Kidney disease stage 3 from DM/HTN: -BL Cr 1.3 to 1.4 -Cr trending down with IVFs. Will continue -Check Urine studies -Will eventually need Juaquin inhibition or ARB for kidney protection from DM but this can be done outpatient once her Cr is back down to baseline -No NSAIDs -Renally dose all meds and avoid nephrotoxic meds Chest Pain Coronary artery disease s/p PCI: -Cards on board. Per them. MPI Scan per Cards Diabetes Mellitus type 2: -Per primary -No metformin in the setting of renal dysfunction Essential Hypertension: -Titrate BP meds to keep SBP <130 -No RAAS inhibition for now. Will eventually need Juaquin inhibition or ARB for kidney protection from DM but this can be done outpatient once her Cr is back down to baseline Hyperlipidemia, chronic: -Per primary COPD: -Per Pulm Plan d/w Patient at bedside as well as bedside RN. Thank you for the consult Emiliano Lorenzana MD [phone]
[2017-12-20] MEDS: NACL 0.45% 1000 ML 1,000 ML IV SCH (14:56)
[2017-12-20] MEDS: DILAUDID IV PRN (15:11)
[2017-12-20 18:28] LABS: Bilirubin,Urine NEG (Negative); Blood,Urine NEG (Negative); Color,Urine Yellow (Yellow); Creatinine,Urine 76.3 mg/dL (0.1-20.0); Nitrite,Urine NEG (Negative); Protein,Urine <15 mg/dL mg/dL (Negative); Urobilinogen,Urine < 2.0 mg/dL (<2.0)
[2017-12-20 19:04] LABS: Protein/Creatinine Ratio,Urine 0.1
[2017-12-20] MEDS: ELIQUIS PO SCH (22:15)
[2017-12-20] MEDS: CATAPRES PO SCH (22:16)
[2017-12-21] MEDS: NACL 0.45% 1000 ML 1,000 ML IV SCH ×3 (00:23→17:44)
[2017-12-21] MEDS: APRESOLINE PO SCH ×3 (02:00→16:13)
[2017-12-21] MEDS: DUONEB *Not for PRN Use IH SCH ×4 (02:49→20:40)
[2017-12-21 07:17] LABS: Calcium 7.6 mg/dL (8.4-10.2)
[2017-12-21] MEDS: PULMICORT IH SCH ×2 (08:08→20:40)
[2017-12-21] MEDS: ASPIRIN PO SCH (09:53)
[2017-12-21] MEDS: COREG PO SCH ×2 (09:53→21:38)
[2017-12-21] MEDS: PROTONIX PO SCH ×2 (09:55→21:38)
[2017-12-21] MEDS: ELIQUIS PO SCH ×2 (09:55→21:39)
[2017-12-21] MEDS: CATAPRES PO SCH ×2 (09:56→21:39)
[2017-12-21] MEDS: PLAVIX PO SCH (09:56)
[2017-12-21] MEDS ORDERED: KIONEX PO NR (10:07)
--- NOTE | 2017-12-21 10:09 | Progress Note ---
Assessment and Plan Acute Kidney injury possibly prerenal/ATN from NSAIDs: Chronic Kidney disease stage 3 from DM/HTN: -BL Cr 1.3 to 1.4 -Cr trending down. Continue IVFs. -Check Urine studies -Will eventually need Juaquin inhibition or ARB for kidney protection from DM but this can be done outpatient once her Cr is back down to baseline -No NSAIDs -Renally dose all meds and avoid nephrotoxic meds Chest Pain Coronary artery disease s/p PCI: -Cards on board. Per them. MPI Scan per Cards Hyperkalemia: -Low K diet -Kayxelate ordered once Diabetes Mellitus type 2: -Per primary -No metformin in the setting of renal dysfunction Essential Hypertension: -Titrate BP meds to keep SBP <130 -No RAAS inhibition for now. Will eventually need Juaquin inhibition or ARB for kidney protection from DM but this can be done outpatient once her Cr is back down to baseline Hyperlipidemia, chronic: -Per primary COPD: -Per Pulm Plan d/w Patient at bedside. Pt should follow up with [facility] 1 week after discharge. Thank you for the consult Emiliano Lorenzana MD [phone] Subjective Date of service: 12/21/17 Principal diagnosis: Chest Pain Interval history: Denies SHOB. Objective - Exam Narrative Exam: GE: AAOX3 HEENT: PERRLA Neck: No JVD Chest: CTAB CVS: RRR Abd: Soft/NT/ND/BS+ Ext: No cce UG: No rooney Psyche: Appropriate mood - Vital Signs Vital signs: Vital Signs - 12hr 12/21/17 12/21/17 12/21/17 01:08 06:17 08:00 Temperature 98.4 F Pulse Rate 74 75 Pulse Rate [ 77 Anterior Bilateral Throughout] Respiratory 20 20 Rate Respiratory 18 Rate [Anterior Bilateral Throughout] Blood Pressure 164/85 177/89 Blood Pressure [Left] O2 Sat by Pulse 96 96 Oximetry 12/21/17 12/21/17 12/21/17 08:10 09:45 09:53 Temperature 98.3 F Pulse Rate 76 76 Pulse Rate [ 80 Anterior Bilateral Throughout] Respiratory 18 Rate Respiratory 18 Rate [Anterior Bilateral Throughout] Blood Pressure 199/108 Blood Pressure 199/108 [Left] O2 Sat by Pulse 96 Oximetry 12/21/17 09:56 Temperature Pulse Rate 76 Pulse Rate [ Anterior Bilateral Throughout] Respiratory Rate Respiratory Rate [Anterior Bilateral Throughout] Blood Pressure 199/108 Blood Pressure [Left] O2 Sat by Pulse Oximetry - Lab 12/19/17 05:36 12/21/17 05:22 Most recent lab results Calcium 7.6 mg/dL (8.4-10.2) L 12/21/17 05:22 Urine Creatinine 76.3 mg/dL (0.1-20.0) H 12/20/17 17:50 Urine Sodium 15 mmol/L 12/20/17 17:50 Urine Total Protein 8 mg/dL (5-11.8) 12/20/17 17:50
--- NOTE | 2017-12-21 10:18 | Progress Note ---
Assessment and Plan 1. Chest pain resolved 2. History of coronary artery disease status post PCI to the LAD. Normal LV ejection fraction 50-55% 3. History of COPD and asthma 4. Essential hypertension 5. Hyperlipidemia 6. Bipolar disorder Plan. Patient is currently stable. Lexiscan MPI is negative for imyocardial ischemic. Discharged home as per PCP Subjective Date of service: 12/21/17 Principal diagnosis: Chest Pain Interval history: No cardiac symptoms. Objective Vital Signs Temp Pulse Pulse Pulse Resp Resp Resp 12/21/17 09:56 76 12/21/17 09:53 76 12/21/17 09:45 98.3 F 76 18 12/21/17 08:10 80 18 12/21/17 08:00 77 18 12/21/17 06:17 98.4 F 75 20 12/21/17 01:08 74 20 12/20/17 20:48 18 12/20/17 20:31 98.7 F 77 20 12/20/17 19:43 83 18 12/20/17 19:28 81 18 12/20/17 17:24 80 12/20/17 17:23 97.0 F L 81 18 12/20/17 14:37 79 20 12/20/17 14:27 77 20 12/20/17 13:27 98.6 F 79 18 12/20/17 12:55 77 12/20/17 12:54 77 12/20/17 12:00 79 12/20/17 11:03 83 18 12/20/17 10:40 85 18 BP BP Pulse Ox 12/21/17 09:56 199/108 12/21/17 09:53 199/108 12/21/17 09:45 199/108 96 12/21/17 08:10 12/21/17 08:00 12/21/17 06:17 177/89 96 12/21/17 01:08 164/85 96 12/20/17 20:48 12/20/17 20:31 163/82 97 12/20/17 19:43 12/20/17 19:28 12/20/17 17:24 100 12/20/17 17:23 173/89 100 12/20/17 14:37 12/20/17 14:27 12/20/17 13:27 153/75 98 12/20/17 12:55 153/89 12/20/17 12:54 153/89 12/20/17 12:00 97 12/20/17 11:03 12/20/17 10:40 - Physical Examination General: Appears Well, No Apparent Distress HEENT: Positive: PERRL Neck: Positive: trachea midline Cardiac: Positive: Regular Rate, S1/S2, Laterally Displaced Lungs: Positive: clear to auscultation, No Wheeze, Rales, Rhonchi Neuro: Positive: Grossly Intact Abdomen: Positive: Soft /Rectal: Normal Prostate, No Masses Skin: Musculoskeletal: No Fluid Collection, No Pain, Normal Range of Motion Gait: Normal Gait Extremities: Absent: edema - Labs and Meds Comprehensive Metabolic Panel 12/21/17 Range/Units 05:22 Sodium 129 L (137-145) mmol/L Potassium 5.1 H (3.6-5.0) mmol/L Chloride 95.6 L (98-107) mmol/L Carbon Dioxide 14 L (22-30) mmol/L BUN 40 H (7-17) mg/dL Creatinine 2.0 H (0.7-1.2) mg/dL Glucose 213 H (65-100) mg/dL Calcium 7.6 L (8.4-10.2) mg/dL - Imaging and Cardiology EKG: report reviewed - Telemetry EKG Rhythm: Sinus Rhythm
[2017-12-21] MEDS: SODIUM BICARBONATE PO SCH ×2 (13:44→21:38)
[2017-12-21] MEDS ORDERED: PROCARDIA XL PO SCH (14:00)
[2017-12-21] MEDS: DILAUDID IV PRN ×2 (15:15→21:40)
--- NOTE | 2017-12-21 15:42 | Progress Note ---
Assessment and Plan Assessment and plan: 62-year-old Jocelin female with PMH significant for HTN Asthma and bipolar disorder who pw chest pain Chest pain, MPI neg, likely due to htn urgency HTN urgency; optimize meds, hold ELYSIA/ARB in light of DORENE DORENE/Vasomotor nephropathy; renal us neg, image reviewed, neg for obs, continue IVF, renal consult appreciated T2DM: cont SSI CAD (coronary artery disease): Cont Plavix Bipolar 1 disorder; Cont Seroquel HLD (hyperlipidemia); Cont statins copd exacerbation; Cont Bronchodilators and steroids Paroxysmal atrial fibrillation with hypercoaguable state Continue Eliquis, cont coreg DVT prophylaxis SCDs History Interval history: wheezing and sob is now improved no cp, no abdominal pain, no fever Hospitalist Physical - Physical exam Narrative exam: General appearance: Present: no acute distress, well-nourished - EENT Eyes: Present: PERRL ENT: hearing intact - Neck Neck: Present: supple - Respiratory Respiratory effort: normal Respiratory: bilateral: CTA - Cardiovascular Rhythm: regular Heart Sounds: Present: S1 & S2 - Extremities Extremities: no ischemia Peripheral Pulses: within normal limits - Abdominal General gastrointestinal: soft, non-tender - Integumentary Integumentary: Present: clear, warm, dry - Psychiatric Psychiatric: appropriate mood/affect, memory intact, cooperative - Neurologic Neurologic: CNII-XII intact, moves all extremities - Constitutional Vitals: Temp Pulse Resp BP Pulse Ox 98 F 78 21 186/96 99 12/21/17 11:50 12/21/17 11:50 12/21/17 15:15 12/21/17 11:50 12/21/17 11:50 General appearance: Present: no acute distress, well-nourished Results - Labs CBC & Chem 7: 12/19/17 05:36 12/21/17 05:22 Labs: Laboratory Last Values WBC 13.0 K/mm3 (4.5-11.0) H 12/19/17 05:36 RBC 3.58 M/mm3 (3.65-5.03) L 12/19/17 05:36 Hgb 9.6 gm/dl (10.1-14.3) L 12/19/17 05:36 Hct 30.3 % (30.3-42.9) 12/19/17 05:36 MCV 85 fl (79-97) 12/19/17 05:36 MCH 27 pg (28-32) L 12/19/17 05:36 MCHC 32 % (30-34) 12/19/17 05:36 RDW 18.7 % (13.2-15.2) H 12/19/17 05:36 Plt Count 303 K/mm3 (140-440) 12/19/17 05:36 Lymph % (Auto) 20.9 % (13.4-35.0) 12/19/17 05:36 [place] % (Auto) 6.1 % (0.0-7.3) 12/19/17 05:36 Eos % (Auto) 1.6 % (0.0-4.3) 12/19/17 05:36 Baso % (Auto) 0.5 % (0.0-1.8) 12/19/17 05:36 Lymph # 2.7 K/mm3 (1.2-5.4) 12/19/17 05:36 [place] # 0.8 K/mm3 (0.0-0.8) 12/19/17 05:36 Eos # 0.2 K/mm3 (0.0-0.4) 12/19/17 05:36 Baso # 0.1 K/mm3 (0.0-0.1) 12/19/17 05:36 Seg Neutrophils % 70.9 % (40.0-70.0) H 12/19/17 05:36 Seg Neutrophils # 9.2 K/mm3 (1.8-7.7) H 12/19/17 05:36 D-Dimer 930.17 ng/mlDDU (0-234) H 12/17/17 10:39 Sodium 129 mmol/L (137-145) L 12/21/17 05:22 Potassium 5.1 mmol/L (3.6-5.0) H 12/21/17 05:22 Chloride 95.6 mmol/L (98-107) L 12/21/17 05:22 Carbon Dioxide 14 mmol/L (22-30) L 12/21/17 05:22 Anion Gap 25 mmol/L 12/21/17 05:22 BUN 40 mg/dL (7-17) H 12/21/17 05:22 Creatinine 2.0 mg/dL (0.7-1.2) H 12/21/17 05:22 Estimated GFR 31 ml/min 12/21/17 05:22 BUN/Creatinine Ratio 20 % 12/21/17 05:22 Glucose 213 mg/dL (65-100) H 12/21/17 05:22 POC Glucose 251 (70-105) H 12/21/17 12:09 Hemoglobin A1c 5.6 % (4-6) 12/19/17 05:36 Calcium 7.6 mg/dL (8.4-10.2) L 12/21/17 05:22 Total Creatine Kinase 37 units/L (30-135) 12/19/17 21:46 Troponin T < 0.010 ng/mL (0.00-0.029) 12/17/17 17:07 NT-Pro-B Natriuret Pep 1407 pg/mL (0-900) H 12/19/17 21:46 Urine Color Yellow (Yellow) 12/20/17 17:50 Urine Turbidity Clear (Clear) 12/20/17 17:50 Urine pH 5.0 (5.0-7.0) 12/20/17 17:50 Ur Specific [place] 1.010 (1.003-1.030) 12/20/17 17:50 Urine Protein <15 mg/dl mg/dL (Negative) 12/20/17 17:50 Urine Glucose (UA) >=500 mg/dL (Negative) 12/20/17 17:50 Urine Ketones Neg mg/dL (Negative) 12/20/17 17:50 Urine Blood Neg (Negative) 12/20/17 17:50 Urine Nitrite Neg (Negative) 12/20/17 17:50 Urine Bilirubin Neg (Negative) 12/20/17 17:50 Urine Urobilinogen < 2.0 mg/dL (<2.0) 12/20/17 17:50 Ur Leukocyte Esterase Neg (Negative) 12/20/17 17:50 Urine WBC (Auto) 1.0 /HPF (0.0-6.0) 12/20/17 17:50 Urine RBC (Auto) 6.0 /HPF (0.0-6.0) 12/20/17 17:50 U Epithel Cells (Auto) 1.0 /HPF (0-13.0) 12/20/17 17:50 Urine Eosinophils None seen (None Seen) 12/20/17 17:50 Urine Creatinine 76.3 mg/dL (0.1-20.0) H 12/20/17 17:50 Protein/Creatinin Ratio 0.10 12/20/17 17:50 Urine Sodium 15 mmol/L 12/20/17 17:50 Urine Urea Nitrogen 712 12/20/17 17:50 Urine Total Protein 8 mg/dL (5-11.8) 12/20/17 17:50
--- NOTE | 2017-12-21 23:31 | Progress Note ---
Assessment and Plan i. 12/21/17 Patient sleeping at this time on room air.O2 saturation 97%. - Patient Problems (1) Acute chest pain Current Visit: Yes Status: Acute Plan to address problem: Management as per cardiology. (2) Abdominal pain Current Visit: Yes Status: Acute Qualifiers: Abdominal location: epigastric Qualified Code(s): R10.13 - Epigastric pain Plan to address problem: Management as per primary care and gastroenterology. (3) HTN (hypertension) Current Visit: Yes Status: Chronic Qualifiers: Hypertension type: essential hypertension Qualified Code(s): I10 - Essential (primary) hypertension Plan to address problem: Management as per primary care, (4) DORENE (acute kidney injury) Current Visit: Yes Status: Acute Plan to address problem: Management as per primary care and nephrology. (5) COPD exacerbation Current Visit: No Status: Acute Plan to address problem: O2 2 litres via nasal canula. Albuterol/atrovent aerosol treatments q 6 hours. Continue I/V solumedral Patient is on Apixaban Continue protonix. Counselled to stop smoking. Subjective Date of service: 12/21/17 Principal diagnosis: Chest Pain Interval history: Patient sleeping at this time on room air.O2 saturation 97%. Objective Vital Signs - 12hr 12/21/17 12/21/17 12/21/17 11:50 15:15 16:03 Temperature 98 F 98.4 F Pulse Rate 78 76 Pulse Rate [ Anterior Bilateral Throughout] Respiratory 17 21 18 Rate Respiratory Rate [Anterior Bilateral Throughout] Blood Pressure 186/99 Blood Pressure 186/96 [Left] O2 Sat by Pulse 99 98 Oximetry 12/21/17 12/21/17 12/21/17 16:13 20:40 20:48 Temperature 97.4 F L Pulse Rate 76 80 Pulse Rate [ 88 Anterior Bilateral Throughout] Respiratory 20 Rate Respiratory 18 Rate [Anterior Bilateral Throughout] Blood Pressure 186/99 187/95 Blood Pressure [Left] O2 Sat by Pulse 96 Oximetry 12/21/17 12/21/17 12/21/17 20:54 21:38 21:39 Temperature Pulse Rate 80 88 Pulse Rate [ 89 Anterior Bilateral Throughout] Respiratory Rate Respiratory 18 Rate [Anterior Bilateral Throughout] Blood Pressure 187/95 187/95 Blood Pressure [Left] O2 Sat by Pulse Oximetry 12/21/17 22:57 Temperature 98.8 F Pulse Rate 76 Pulse Rate [ Anterior Bilateral Throughout] Respiratory 22 Rate Respiratory Rate [Anterior Bilateral Throughout] Blood Pressure 189/104 Blood Pressure [Left] O2 Sat by Pulse 97 Oximetry Constitutional: no acute distress, asleep Eyes: non-icteric ENT: oropharynx moist Neck: supple, no JVD Ascultation: Bilateral: diminished breath sounds (Prolonged expiratory phase.) Cardiovascular: regular rate and rhythm Gastrointestinal: normoactive bowel sounds, soft, non-tender Integumentary: normal Extremities: no cyanosis, no edema Neurologic: normal mental status, non-focal exam, pupils equal and round, CN II- XII normal Psychiatric: anxious CBC and BMP: 12/19/17 05:36 12/21/17 05:22 ABG, PT/INR, D-dimer: PT/INR, D-dimer D-Dimer 930.17 ng/mlDDU (0-234) H 12/17/17 10:39 Abnormal lab findings: Abnormal Labs 12/17/17 12/17/17 12/17/17 10:39 10:39 10:59 WBC 12.6 H RBC Hgb MCH 27 L RDW 18.8 H Seg Neutrophils % 74.8 H Seg Neutrophils # 9.4 H D-Dimer 930.17 H Sodium Potassium Chloride Carbon Dioxide BUN Creatinine Glucose POC Glucose Calcium NT-Pro-B Natriuret Pep 1 H Urine Creatinine 12/17/17 12/17/17 12/18/17 10:59 17:50 10:47 WBC RBC Hgb MCH RDW Seg Neutrophils % Seg Neutrophils # D-Dimer Sodium 146 H Potassium Chloride Carbon Dioxide BUN 30 H 38 H Creatinine 1.4 H 1.8 H Glucose 109 H 158 H POC Glucose 106 H Calcium NT-Pro-B Natriuret Pep Urine Creatinine 12/19/17 12/19/17 12/19/17 05:36 05:36 21:46 WBC 13.0 H RBC 3.58 L Hgb 9.6 L MCH 27 L RDW 18.7 H Seg Neutrophils % 70.9 H Seg Neutrophils # 9.2 H D-Dimer Sodium Potassium Chloride Carbon Dioxide BUN 52 H Creatinine 2.6 H Glucose 119 H POC Glucose Calcium NT-Pro-B Natriuret Pep 1407 H Urine Creatinine 12/20/17 12/20/17 12/20/17 05:48 12:08 17:32 WBC RBC Hgb MCH RDW Seg Neutrophils % Seg Neutrophils # D-Dimer Sodium 135 L Potassium Chloride Carbon Dioxide 18 L BUN 54 H Creatinine 2.4 H Glucose 247 H POC Glucose 379 H 269 H Calcium NT-Pro-B Natriuret Pep Urine Creatinine 12/20/17 12/20/17 12/21/17 17:50 22:18 05:22 WBC RBC Hgb MCH RDW Seg Neutrophils % Seg Neutrophils # D-Dimer Sodium 129 L Potassium 5.1 H Chloride 95.6 L Carbon Dioxide 14 L BUN 40 H Creatinine 2.0 H Glucose 213 H POC Glucose 247 H Calcium 7.6 L NT-Pro-B Natriuret Pep Urine Creatinine 76.3 H 12/21/17 12/21/17 12/21/17 08:46 12:09 16:09 WBC RBC Hgb MCH RDW Seg Neutrophils % Seg Neutrophils # D-Dimer Sodium Potassium Chloride Carbon Dioxide BUN Creatinine Glucose POC Glucose 235 H 251 H 279 H Calcium NT-Pro-B Natriuret Pep Urine Creatinine 12/21/17 22:58 WBC RBC Hgb MCH RDW Seg Neutrophils % Seg Neutrophils # D-Dimer Sodium Potassium Chloride Carbon Dioxide BUN Creatinine Glucose POC Glucose 321 H Calcium NT-Pro-B Natriuret Pep Urine Creatinine
[2017-12-22] MEDS ORDERED: APRESOLINE IV PRN
[2017-12-22] MEDS: NACL 0.45% 1000 ML 1,000 ML IV SCH (01:42)
[2017-12-22] MEDS: APRESOLINE PO SCH ×2 (01:53→10:18)
[2017-12-22] MEDS: DILAUDID IV PRN ×2 (01:57→11:43)
[2017-12-22] MEDS: DUONEB *Not for PRN Use IH SCH ×3 (06:05→14:53)
[2017-12-22 06:31] LABS: Calcium 8.1 mg/dL (8.4-10.2)
[2017-12-22] MEDS: PULMICORT IH SCH (08:49)
--- NOTE | 2017-12-22 08:52 | Progress Note ---
Assessment and Plan Chest Pain: CAD s/p PCI: -Cardiology on board, on eliquis, coreg, s/p lexiscan MPI negative for myocardial ischemia, f/u recs Acute Kidney injury possibly prerenal etiology/ ATN from NSAIDs use, underlying chronic Kidney disease stage 3 from diabetes mellitus and hypertension: -Renal function reviewed, gradually improving, SCr level decreased to 1.7 today , yesterday's SCr level was 2.0 -Renally dose meds -Discontinue 0.45% NS infusion at 125 ml/hr -Anticipate starting on either ACEI vs ARB for renal protection from diabetes mellitus once renal function is stable, but this can be done as an outpatient -Avoid NSAIDs -Strict intake and output -Renal plan discussed with Dr Lane -Continue supportive therapy Hyperkalemia: -Improved -Low potassium diet Hyponatremia: -Improved Diabetes Mellitus type 2 non-insulin dependent: -As per primary team Essential Hypertension: -Discontinue IV fluids -Continue on current regimen for now, adjust if needed COPD: -On nebs, steroids -As per pulmonology Hyperlipidemia: -As per primary Subjective Date of service: 12/22/17 Principal diagnosis: Chest Pain Interval history: Patient reports less chest pain today, also states she does have shortness of breath is at baseline (underlying COPD), no acute distress. Patient states she is tolerating diet ok. No family at bedside. Objective - Vital Signs Vital signs: Vital Signs - 12hr 12/21/17 12/21/17 12/21/17 20:54 21:38 21:39 Temperature Pulse Rate 80 88 Pulse Rate [ 89 Anterior Bilateral Throughout] Respiratory Rate Respiratory 18 Rate [Anterior Bilateral Throughout] Blood Pressure 187/95 187/95 O2 Sat by Pulse Oximetry 12/21/17 12/22/17 12/22/17 22:57 00:10 01:53 Temperature 98.8 F Pulse Rate 76 76 86 Pulse Rate [ Anterior Bilateral Throughout] Respiratory 22 Rate Respiratory Rate [Anterior Bilateral Throughout] Blood Pressure 189/104 189/104 163/90 O2 Sat by Pulse 97 Oximetry 12/22/17 12/22/17 04:24 08:02 Temperature 98.3 F 98.7 F Pulse Rate 87 78 Pulse Rate [ Anterior Bilateral Throughout] Respiratory 24 24 Rate Respiratory Rate [Anterior Bilateral Throughout] Blood Pressure 144/91 190/107 O2 Sat by Pulse 93 98 Oximetry - General Appearance General appearance: well-developed (no acute distress) EENT: ATNC Neck: no JVD Respiratory: Present: Other (Lung sounds decreased bilaterally, unlabored) Cardiology: S1S2 Gastrointestinal: normoactive bowel sounds, no tenderness Integumentary: warm and dry Neurologic: alert and oriented x3 Musculoskeletal: other (no edema to both lower extremities) Psychiatric: mood/affect appropriate, cooperative - Lab 12/19/17 05:36 12/22/17 05:24 Most recent lab results Calcium 8.1 mg/dL (8.4-10.2) L 12/22/17 05:24 Urine Creatinine 76.3 mg/dL (0.1-20.0) H 12/20/17 17:50 Urine Sodium 15 mmol/L 12/20/17 17:50 Urine Total Protein 8 mg/dL (5-11.8) 12/20/17 17:50
[2017-12-22] MEDS ORDERED: PROCARDIA XL PO SCH (10:00)
[2017-12-22] MEDS: ASPIRIN PO SCH (10:10)
[2017-12-22] MEDS: SODIUM BICARBONATE PO SCH ×2 (10:10→17:11)
[2017-12-22] MEDS: PLAVIX PO SCH (10:10)
[2017-12-22] MEDS: PROTONIX PO SCH (10:11)
[2017-12-22] MEDS: ELIQUIS PO SCH ×2 (10:11→10:14)
[2017-12-22] MEDS: CATAPRES PO SCH (10:11)
[2017-12-22] MEDS: COREG PO SCH (10:11)
--- NOTE | 2017-12-22 10:32 | Progress Note ---
Assessment and Plan Chest pain no ischemia on MPI this admission COPD exacerbation Epigastic pain with n/v Acute renal failure Hx of CAD [facility] 07/2017: Widely patent [id number] LAD stents. Otherwise no significant residual coronary lesions. LVEF 50-55%. Paroxysmal Afib on eliquis as an outpatient Tobacco abuse Recommend: Continue medical therapy for coronary artery disease and paroxysmal atrial fibrillation. Otherwise, conservative medical therapy. Subjective Date of service: 12/22/17 Principal diagnosis: Chest Pain Interval history: Patient denies chest pain. Objective Vital Signs Temp Pulse Pulse Resp Resp BP BP 12/22/17 10:18 190/107 12/22/17 10:11 190/107 12/22/17 09:01 84 18 12/22/17 09:00 84 18 12/22/17 08:02 98.7 F 78 24 190/107 12/22/17 04:24 98.3 F 87 24 144/91 12/22/17 01:53 86 163/90 12/22/17 00:10 76 189/104 12/21/17 22:57 98.8 F 76 22 189/104 12/21/17 21:39 88 187/95 12/21/17 21:38 80 187/95 12/21/17 20:54 89 18 12/21/17 20:48 97.4 F L 80 20 187/95 12/21/17 20:40 88 18 12/21/17 16:13 76 186/99 12/21/17 16:03 98.4 F 76 18 186/99 12/21/17 15:15 21 12/21/17 11:50 98 F 78 17 186/96 Pulse Ox 12/22/17 10:18 12/22/17 10:11 12/22/17 09:01 12/22/17 09:00 12/22/17 08:02 98 12/22/17 04:24 93 12/22/17 01:53 12/22/17 00:10 12/21/17 22:57 97 12/21/17 21:39 12/21/17 21:38 12/21/17 20:54 12/21/17 20:48 96 12/21/17 20:40 12/21/17 16:13 12/21/17 16:03 98 12/21/17 15:15 12/21/17 11:50 99 - Physical Examination General: Appears Well, No Apparent Distress HEENT: Positive: PERRL Cardiac: Positive: Reg Rate and Rhythm Neuro: Positive: Grossly Intact Skin: Extremities: Absent: edema - Labs and Meds Comprehensive Metabolic Panel 12/22/17 Range/Units 05:24 Sodium 136 L D (137-145) mmol/L Potassium 4.5 (3.6-5.0) mmol/L Chloride 98.3 (98-107) mmol/L Carbon Dioxide 21 L D (22-30) mmol/L BUN 43 H (7-17) mg/dL Creatinine 1.7 H (0.7-1.2) mg/dL Glucose 237 H (65-100) mg/dL Calcium 8.1 L (8.4-10.2) mg/dL - Imaging and Cardiology EKG: report reviewed
--- NOTE | 2017-12-22 14:06 | Progress Note ---
Assessment and Plan Acute COPD exacerbation Chest Pain Hypertensive Urgency DORENE Diabetes type II PAF (Rate controlled) - continue bronchodilators and ICS - continue systemic steroids with taper - prn oxygen therapy for sats < 89% - empiric Ab's for acute COPD exacerbation - continue glycemic control with SSI - azotemia per nephrology - complete ACS w/up per cardiology - continue eliquis for A-fib - continue GI prophylaxis - flu & pneumovax per protocol ...d/c planning ok pulmonary-diaz Subjective Date of service: 12/22/17 Principal diagnosis: Chest Pain Interval history: Patient is seen today for: Chest Pain; AECOPD Seen and examined at bedside; 24hour events reviewed; nursing and respiratory care staff consulted; no adverse overnight events reported to me; resting peacefully; denies acute chest pains or increased SOB Objective Vital Signs - 12hr 12/22/17 12/22/17 12/22/17 04:24 08:02 09:00 Temperature 98.3 F 98.7 F Pulse Rate 87 78 Pulse Rate [ 84 Anterior Bilateral Throughout] Respiratory 24 24 Rate Respiratory 18 Rate [Anterior Bilateral Throughout] Blood Pressure 144/91 190/107 O2 Sat by Pulse 93 98 Oximetry 12/22/17 12/22/17 12/22/17 09:01 10:11 10:18 Temperature Pulse Rate Pulse Rate [ 84 Anterior Bilateral Throughout] Respiratory Rate Respiratory 18 Rate [Anterior Bilateral Throughout] Blood Pressure 190/107 190/107 O2 Sat by Pulse Oximetry 12/22/17 13:31 Temperature 98.4 F Pulse Rate 71 Pulse Rate [ Anterior Bilateral Throughout] Respiratory 18 Rate Respiratory Rate [Anterior Bilateral Throughout] Blood Pressure 162/91 O2 Sat by Pulse 100 Oximetry Constitutional: no acute distress, other (resting peacefully) Eyes: non-icteric ENT: oropharynx moist Neck: supple, no lymphadenopathy, no JVD, other (no thyromegaly) Ascultation: Bilateral: clear, diminished breath sounds (Prolonged expiratory phase.) Percussion: Bilateral: not dull Cardiovascular: regular rate and rhythm, other (no rubs or murmurs) Gastrointestinal: normoactive bowel sounds, soft, non-tender Integumentary: normal Extremities: no cyanosis, no edema Neurologic: normal mental status, non-focal exam, pupils equal and round, CN II- XII normal Psychiatric: mood appropriate, affect normal CBC and BMP: 12/19/17 05:36 12/22/17 05:24 ABG, PT/INR, D-dimer: PT/INR, D-dimer D-Dimer 930.17 ng/mlDDU (0-234) H 12/17/17 10:39 Abnormal lab findings: Abnormal Labs 12/17/17 12/17/17 12/17/17 10:39 10:39 10:59 WBC 12.6 H RBC Hgb MCH 27 L RDW 18.8 H Seg Neutrophils % 74.8 H Seg Neutrophils # 9.4 H D-Dimer 930.17 H Sodium Potassium Chloride Carbon Dioxide BUN Creatinine Glucose POC Glucose Calcium NT-Pro-B Natriuret Pep 2071 H Urine Creatinine 12/17/17 12/17/17 12/18/17 10:59 17:50 10:47 WBC RBC Hgb MCH RDW Seg Neutrophils % Seg Neutrophils # D-Dimer Sodium 146 H Potassium Chloride Carbon Dioxide BUN 30 H 38 H Creatinine 1.4 H 1.8 H Glucose 109 H 158 H POC Glucose 106 H Calcium NT-Pro-B Natriuret Pep Urine Creatinine 12/19/17 12/19/17 12/19/17 05:36 05:36 21:46 WBC 13.0 H RBC 3.58 L Hgb 9.6 L MCH 27 L RDW 18.7 H Seg Neutrophils % 70.9 H Seg Neutrophils # 9.2 H D-Dimer Sodium Potassium Chloride Carbon Dioxide BUN 52 H Creatinine 2.6 H Glucose 119 H POC Glucose Calcium NT-Pro-B Natriuret Pep 1407 H Urine Creatinine 12/20/17 12/20/17 12/20/17 05:48 12:08 17:32 WBC RBC Hgb MCH RDW Seg Neutrophils % Seg Neutrophils # D-Dimer Sodium 135 L Potassium Chloride Carbon Dioxide 18 L BUN 54 H Creatinine 2.4 H Glucose 247 H POC Glucose 379 H 269 H Calcium NT-Pro-B Natriuret Pep Urine Creatinine 12/20/17 12/20/17 12/21/17 17:50 22:18 05:22 WBC RBC Hgb MCH RDW Seg Neutrophils % Seg Neutrophils # D-Dimer Sodium 129 L Potassium 5.1 H Chloride 95.6 L Carbon Dioxide 14 L BUN 40 H Creatinine 2.0 H Glucose 213 H POC Glucose 247 H Calcium 7.6 L NT-Pro-B Natriuret Pep Urine Creatinine 76.3 H 12/21/17 12/21/17 12/21/17 08:46 12:09 16:09 WBC RBC Hgb MCH RDW Seg Neutrophils % Seg Neutrophils # D-Dimer Sodium Potassium Chloride Carbon Dioxide BUN Creatinine Glucose POC Glucose 235 H 251 H 279 H Calcium NT-Pro-B Natriuret Pep Urine Creatinine 12/21/17 12/22/17 12/22/17 22:58 05:24 06:30 WBC RBC Hgb MCH RDW Seg Neutrophils % Seg Neutrophils # D-Dimer Sodium 136 L D Potassium Chloride Carbon Dioxide 21 L D BUN 43 H Creatinine 1.7 H Glucose 237 H POC Glucose 321 H 284 H Calcium 8.1 L NT-Pro-B Natriuret Pep Urine Creatinine 12/22/17 12:41 WBC RBC Hgb MCH RDW Seg Neutrophils % Seg Neutrophils # D-Dimer Sodium Potassium Chloride Carbon Dioxide BUN Creatinine Glucose POC Glucose 456 H Calcium NT-Pro-B Natriuret Pep Urine Creatinine Chest x-ray: image reviewed
--- NOTE | 2017-12-22 16:05 | Discharge Summary ---
Providers - Providers Date of Admission: 12/17/17 13:29 Attending physician: LISS HARTLEY MD 12/18/17 10:04 Consult to Physician [CONS] Routine Consulting Provider: DEV BROWN Reason For Exam: chest pain/cad Place consult to:: Dr. Brown Notified:: Figueroa RN Was contact made?: Yes If yes, spoke with:: Kushjedmarilee Singh Time called:: 12:18 12/19/17 15:13 Consult to Physician [CONS] Routine Consulting Provider: BURKE PEREZ Reason For Exam: copd Place consult to:: DR PEREZ Notified:: DR PEREZ 12/19/17 17:32 Consult to Physician [CONS] Routine Consulting Provider: INDIO LORENZANA Reason For Exam: acute kidney injury Place consult to:: Dr. Lorenzana Notified:: Dr. Lorenzana Comment:: completed Primary care physician: LITA BARBOSA Hospitalization Condition: Stable Hospital course: 62-year-old Jocelin female with PMH significant for HTN Asthma and bipolar disorder who pw chest pain Chest pain, MPI neg, likely due to htn urgency HTN urgency; optimize meds, hold ELYSIA/ARB in light of DORENE DORENE/Vasomotor nephropathy; renal us neg, image reviewed, neg for obs, continue IVF, renal consult appreciated T2DM: cont SSI CAD (coronary artery disease): Cont Plavix Bipolar 1 disorder; Cont Seroquel HLD (hyperlipidemia); Cont statins copd exacerbation; Cont Bronchodilators and steroids Paroxysmal atrial fibrillation with hypercoaguable state Continue Eliquis, cont coreg DVT prophylaxis SCDs Disposition: - TO HOME OR SELFCARE Time spent for discharge: 35 minutes Core Measure Documentation - Palliative Care Palliative Care/ Comfort Measures: Not Applicable - Core Measures Any of the following diagnoses?: none Exam - Constitutional Vitals: Temp Pulse Resp BP Pulse Ox 98.4 F 71 18 162/91 100 12/22/17 13:31 12/22/17 13:31 12/22/17 13:31 12/22/17 13:31 12/22/17 13:31 General appearance: Present: no acute distress, well-nourished - EENT Eyes: Present: PERRL ENT: hearing intact, clear oral mucosa - Neck Neck: Present: supple, normal ROM - Respiratory Respiratory effort: normal Respiratory: bilateral: CTA - Cardiovascular Heart Sounds: Present: S1 & S2. Absent: rub, click - Extremities Extremities: pulses symmetrical, No edema Peripheral Pulses: within normal limits - Abdominal General gastrointestinal: Present: soft, non-tender, non-distended, normal bowel sounds Female genitourinary: Present: normal - Integumentary Integumentary: Present: clear, warm, dry - Musculoskeletal Musculoskeletal: gait normal, strength equal bilaterally - Psychiatric Psychiatric: appropriate mood/affect, intact judgment & insight - Neurologic Neurologic: CNII-XII intact, moves all extremities Plan Follow up with: INDIO LORENZANA MD [Staff Physician] - 7 Days PRIMARY CAREMD [Referring] - 3-5 Days Prescriptions: ALBUTEROL Inhaler [ProAir HFA Inhaler] 2 puff IH QID PRN #1 inha PRN Reason: Shortness Of Breath Apixaban [Eliquis] 5 mg PO BID #60 tablet Carvedilol [Coreg] 25 mg PO BID #60 tablet Clonidine HCl [Catapres] 0.3 mg PO BID #60 tablet NIFEdipine XL [Procardia Xl] 60 mg PO QDAY #30 tablet Prednisone [predniSONE 5 mg (6-Day Pack, 21 Tabs)] 5 mg PO .TAPER #1 tab.ds.pk Sodium Bicarbonate 650 mg PO TID #90 tablet
[2017-12-22 16:20] VITALS: BP 146/80
--- NOTE | 2017-12-23 09:11 | Treadmill Report ---
THALLIUM STRESS TEST LEFT VENTRICLE: Left ventricular chamber size is within normal spread. Perfusion study demonstrates well preserved perfusion uptake of the tracer in all segments, no significant defects identified. Gated analysis demonstrates normal left ventricular systolic function, ejection fraction 61%. CONCLUSION: Normal myocardial perfusion study. JOB# [id number] CA/NTS
== END 2017-12-22 18:00 | disposition home or self-care (01) | DRG 304 ==
LOC: ED 10:04 → 4A 13:29 → 3A 12-21 22:36
PROVIDERS: ADMIT Internal Medicine; ATTEND Internal Medicine
DX: I16.0 Hypertensive urgency (principal); N17.0 Acute kidney failure with tubular necrosis; J44.1 Chronic obstructive pulmonary disease with (acute) exacerbation; E87.1 Hypo-osmolality and hyponatremia; K21.9 Gastro-esophageal reflux disease without esophagitis; I25.10 Atherosclerotic heart disease of native coronary artery without angina pectoris; R10.9 Unspecified abdominal pain; Z91.013 Allergy to seafood; Z91.018 Allergy to other foods; Z79.82 Long term (current) use of aspirin; Z86.73 Personal history of transient ischemic attack (TIA), and cerebral infarction without residual deficits; F17.200 Nicotine dependence, unspecified, uncomplicated; E78.00 Pure hypercholesterolemia, unspecified; F20.9 Schizophrenia, unspecified; F31.9 Bipolar disorder, unspecified; I50.9 Heart failure, unspecified; I25.2 Old myocardial infarction; I48.0 Paroxysmal atrial fibrillation; I13.0 Hypertensive heart and chronic kidney disease with heart failure and stage 1 through stage 4 chronic kidney disease, or unspecified chronic kidney disease; E11.22 Type 2 diabetes mellitus with diabetic chronic kidney disease; N18.3 Chronic kidney disease, stage 3 (moderate); E87.5 Hyperkalemia; E78.5 Hyperlipidemia, unspecified
CPT/HCPCS: 36415; 71045; 74150; 76770; 78452; 78582; 80048; 81001; 82550; 82570; 82962; 83036; 83880; 84156; 84300; 84484; 84520; 85025; 85379; 89050; 93005; 93010; 94640; 94644; 96374; 96375; 96376; 99406; A9502; A9540; A9558; C9113; J0360; J1170; J1644; J1885; J2270; J2405; J2785; J2920; J7040

== ENCOUNTER 2018-01-06 15:48 | Emergency (ER) | payer MEDICARE ==
[2018-01-06 16:04] VITALS: BP 213/109
[2018-01-06] MEDS ORDERED: ASPIRIN PO ONE (16:04)
[2018-01-06 16:25] LABS: Basophils % (Auto) 0.4 % (0.0-1.8); Eosinophils # (Auto) 0.2 K/mm3 (0.0-0.4); Eosinophils % (Auto) 2.1 % (0.0-4.3); Hematocrit 36.2 % (30.3-42.9); Hemoglobin 11.2 gm/dl (10.1-14.3); Lymphocytes # (Auto) 2.6 K/mm3 (1.2-5.4); Lymphocytes % (Auto) 21.5 % (13.4-35.0); Mean Corpuscular HGB Conc 31 % (30-34); Mean Corpuscular Hemoglobin 27 pg (28-32); Mean Corpuscular Volume 86 fl (79-97); Monocytes # (Auto) 0.7 K/mm3 (0.0-0.8); Monocytes % (Auto) 6.1 % (0.0-7.3); Platelet Count 252 K/mm3 (140-440); Red Blood Count 4.21 M/mm3 (3.65-5.03)
[2018-01-06 16:51] LABS: BUN/Creatinine Ratio 21; Blood Urea Nitrogen 35 mg/dL (7-17); Hemolysis Index 24
--- NOTE | 2018-01-06 17:43 | XRay Report ---
FINAL REPORT EXAM: XR CHEST ROUTINE 2V HISTORY: SOB/chest pain TECHNIQUE: PA and lateral views of the chest PRIORS: None. FINDINGS: Lines, tubes, and devices: N/A Lungs and pleura: Trachea is normal in position. Lungs are clear of infiltrate, pleural effusion, vascular congestion, or pneumothorax. Cardiomediastinal silhouette: Cardiac and mediastinal silhouettes are unremarkable. Other: Bony structures are intact. IMPRESSION: No acute cardiopulmonary process seen.
== END 2018-01-07 01:00 | disposition left against medical advice (07) ==
LOC: ED 15:48
DX: R07.9 Chest pain, unspecified (principal); Z53.21 Procedure and treatment not carried out due to patient leaving prior to being seen by health care provider
CPT/HCPCS: 36415; 71046; 80048; 83880; 84484; 85025; 93005; 93010

== ENCOUNTER 2020-06-27 21:17 | Emergency (ER) | payer MEDICARE ==
[2020-06-27] MEDS ORDERED: ASPIRIN 325 MG TAB PO ONE (21:29)
[2020-06-27] MEDS ORDERED: hydrALAZINE 20 MG/1 ML INJ IV ONE (21:39)
[2020-06-27] MEDS ORDERED: MORPHINE 4 MG/1 ML INJ IV ONE (21:43)
[2020-06-27] MEDS ORDERED: ONDANSETRON 4 MG/2 ML INJ IV ONE (21:45)
--- NOTE | 2020-06-27 21:45 | Emergency Department Report ---
ED Chest Pain HPI - General Chief Complaint: Chest Pain Stated Complaint: CHEST PAIN PUI?: No Time Seen by Provider: 06/27/20 21:33 Source: patient, EMS Mode of arrival: Stretcher Limitations: No Limitations - History of Present Illness Initial Comments: This is a 65-year-old female with history of CAD status post cardiac stent, CVA, atrial fibrillation, diabetes mellitus, COPD, bipolar disorder who presents with chest pain squeezing sensation which begins in her chest radiates to her back. She states that she has this type of chest pain on a pretty consistent basis. She states that her chest pain normally arises when her blood pressure is elevated. She has been compliant with daily aspirin. Home medications include hydralazine, clonidine, diuretic. Patient was evaluated May for chest pain. She has had extensive cardiac evaluation for chest pain over several hospitalizations here. According to cardiology consultation performed last month, patient had negative Lexiscan at outside hospital in March of this year. MD Complaint: chest pain -: Gradual, This morning Onset: during rest Pain Location: substernal Pain Radiation: back Severity: moderate Severity scale (0 -10): 8 Quality: squeezing Consistency: constant Improves With: nothing Worsens With: nothing Treatments Prior to Arrival: none - Related Data Home Medications Medication Instructions Recorded Confirmed Last Taken Quetiapine Fumarate [Seroquel] 100 mg PO BID 08/01/17 05/27/20 04/10/20 Previous Rx's Medication Instructions Recorded Last Taken Type Albuterol Mdi (or & Nicu Only) 2 puff IH QID PRN #1 inha 12/22/17 04/10/20 Rx [ProAir HFA Inhaler] Acetaminophen [Acetaminophen TAB] 650 mg PO Q4H PRN tablet 04/14/20 Unknown Rx Amiodarone [Cordarone 200 MG TAB] 200 mg PO QDAY #30 tablet 04/14/20 Unknown Rx Aspirin EC [Halfprin EC] 81 mg PO QDAY #30 tablet 04/14/20 Unknown Rx Amiodarone [Cordarone 200 MG TAB] 200 mg PO BID #60 tablet 05/29/20 Unknown Rx Apixaban [Eliquis] 5 mg PO BID 30 Days #60 tablet 05/29/20 Unknown Rx Metoprolol [Lopressor TAB] 50 mg PO BID #60 tablet 05/29/20 Unknown Rx amLODIPine 10 mg PO QDAY #30 tablet 05/29/20 Unknown Rx oxyCODONE /ACETAMINOPHEN [Percocet 1 tab PO Q6H PRN #20 tablet 05/29/20 Unknown Rx 5/325 mg] Allergies Allergy/AdvReac Type Severity Reaction Status Date / Time apple AdvReac Hives Verified 08/01/17 13:02 shell fish Allergy Swelling Uncoded 08/01/17 13:02 Heart Score - HEART Score History: Slightly suspicious EKG: Non-specific Age: > 65 Risk factors: > 3 risk factors or hx of atherosclerotic disease Troponin: < normal limit HEART Score: 5 ED Review of Systems ROS: Stated complaint: CHEST PAIN Other details as noted in HPI Comment: All other systems reviewed and negative Constitutional: denies: fever, malaise Respiratory: denies: cough, shortness of breath Cardiovascular: chest pain Gastrointestinal: denies: abdominal pain, nausea, vomiting ED Past Medical Hx - Past Medical History Previous Medical History?: Yes Hx Hypertension: Yes Hx CVA: Yes (right sided weakness) Hx Heart Attack/AMI: Yes (1 stent) Hx Congestive Heart Failure: Yes Hx Diabetes: Yes Hx Renal Disease: Yes (RENAL INSUFFICIENCY- stent left kidney) Hx Psychiatric Treatment: Yes (BIPOLAR/SCHIZOPHRENIA) Hx COPD: Yes Additional medical history: HIGH CHOLESTEROL - Surgical History Past Surgical History?: Yes Hx Coronary Stent: Yes (x 2 in May 2015) Additional Surgical History: stent placement x 2 in 2014, knee surgery 11/2017 - Social History Smoking Status: Never Smoker Substance Use Type: None - Medications Home Medications: Home Medications Medication Instructions Recorded Confirmed Last Taken Type Quetiapine Fumarate [Seroquel] 100 mg PO BID 08/01/17 05/27/20 04/10/20 History Albuterol Mdi (or & Nicu Only) 2 puff IH QID PRN #1 inha 12/22/17 05/27/20 04/10/20 Rx [ProAir HFA Inhaler] Acetaminophen [Acetaminophen TAB] 650 mg PO Q4H PRN tablet 04/14/20 05/27/20 Unknown Rx Amiodarone [Cordarone 200 MG TAB] 200 mg PO QDAY #30 tablet 04/14/20 05/27/20 Unknown Rx Aspirin EC [Halfprin EC] 81 mg PO QDAY #30 tablet 04/14/20 05/27/20 Unknown Rx Amiodarone [Cordarone 200 MG TAB] 200 mg PO BID #60 tablet 05/29/20 Unknown Rx Apixaban [Eliquis] 5 mg PO BID 30 Days #60 tablet 05/29/20 Unknown Rx Metoprolol [Lopressor TAB] 50 mg PO BID #60 tablet 05/29/20 Unknown Rx amLODIPine 10 mg PO QDAY #30 tablet 05/29/20 Unknown Rx oxyCODONE /ACETAMINOPHEN [Percocet 1 tab PO Q6H PRN #20 tablet 05/29/20 Unknown Rx 5/325 mg] ED Physical Exam - General Limitations: No Limitations General appearance: alert, in no apparent distress - Head Head exam: Present: atraumatic, normocephalic - Eye Eye exam: Present: normal appearance - ENT ENT exam: Present: mucous membranes moist - Neck Neck exam: Present: normal inspection, full ROM - Respiratory Respiratory exam: Present: normal lung sounds bilaterally. Absent: respiratory distress, wheezes, rales, rhonchi, stridor - Cardiovascular Cardiovascular Exam: Present: regular rate, normal rhythm, normal heart sounds. Absent: systolic murmur, diastolic murmur, rubs, gallop - GI/Abdominal GI/Abdominal exam: Present: soft, normal bowel sounds. Absent: distended, ten derness, guarding, rebound - Extremities Exam Extremities exam: Present: normal inspection - Neurological Exam Neurological exam: Present: alert, oriented X3 - Psychiatric Psychiatric exam: Present: normal affect, normal mood - Skin Skin exam: Present: warm, dry, intact, normal color. Absent: rash ED Course Vital Signs 06/27/20 06/27/20 06/27/20 21:32 21:34 21:36 Temperature Pulse Rate 61 59 L 59 L Respiratory 24 28 H 19 Rate Blood Pressure Blood Pressure [Left] O2 Sat by Pulse 100 100 100 Oximetry 06/27/20 06/27/20 06/27/20 21:38 21:40 21:42 Temperature 99.6 F Pulse Rate 61 59 L Respiratory 18 16 Rate Blood Pressure 208/99 Blood Pressure 208/99 [Left] O2 Sat by Pulse 100 99 Oximetry 06/27/20 06/27/20 06/27/20 21:57 21:59 22:47 Temperature Pulse Rate 61 65 Respiratory 19 25 H Rate Blood Pressure 208/99 173/94 Blood Pressure [Left] O2 Sat by Pulse 100 Oximetry 06/27/20 06/27/20 06/28/20 23:00 23:05 00:00 Temperature Pulse Rate 62 62 64 Respiratory 14 20 22 Rate Blood Pressure 175/91 175/91 187/92 Blood Pressure [Left] O2 Sat by Pulse 100 100 100 Oximetry BLAS score - Blas Score Age > 65: (0) No Aspirin use within the Past 7 Days: (0) No 3 or more CAD Risk Factors: (1) Yes 2 or more Angina events in past 24 hrs: (1) Yes Known CAD with more than 50% Stenosis: (1) Yes Elevated Cardiac Markers: (0) No ST Deviation Greater than 0.5mm: (0) No BLAS Score: 3 ED Medical Decision Making - Lab Data Result diagrams: 06/27/20 21:37 06/27/20 21:37 Laboratory Results - last 24 hr 06/27/20 06/27/20 21:37 21:37 WBC 15.5 H RBC 3.92 Hgb 12.1 Hct 36.0 MCV 92 MCH 31 MCHC 34 RDW 15.9 H Plt Count 219 Lymph % (Auto) 13.4 Wallace % (Auto) 5.9 Eos % (Auto) 1.2 Baso % (Auto) 0.5 Lymph # 2.1 Wallace # 0.9 H Eos # 0.2 Baso # 0.1 Seg Neutrophils % 79.0 H Seg Neutrophils # 12.2 H Sodium 139 Potassium 3.7 Chloride 102.7 Carbon Dioxide 22 Anion Gap 18 BUN 33 H Creatinine 2.2 H Estimated GFR 27 BUN/Creatinine Ratio 15 Glucose 133 H Calcium 8.9 Troponin T < 0.010 - EKG Data -: EKG Interpreted by Or EKG shows normal: sinus rhythm, axis, intervals, ST-T waves Rate: normal, bradycardia - EKG Data Interpretation: other (QS complexes in anterior lead) - Radiology Data Radiology results: report reviewed Chest radiograph: No acute findings - Medical Decision Making 1. Chest pain: Persistent chest pain at rest. Atypical for ACS. Patient has had several hospitalizations this year for chest pain. Last 3 previous hospitalizations, she had cardiac work-ups which were negative for acute ischemia. Patient is grieving. A close family friend on yesterday. She denies suicidal homicidal ideation. 2. Hypertensive urgency: Repeat blood pressure 168/84 after receiving IV hydralazine. I do not suspect pulmonary embolism, aortic dissection or any other emergent co ndition associated with chest pain. She is currently chest pain-free. Discharged home. Critical care attestation.: If time is entered above; I have spent that time in minutes in the direct care of this critically ill patient, excluding procedure time. ED Disposition Clinical Impression: Hypertensive urgency, Chest pain Disposition: DC-01 TO HOME OR SELFCARE Is pt being admited?: No Does the pt Need Aspirin: No Condition: Stable Instructions: Chest Pain (ED) Referrals: PRIMARY CARE, [Primary Care Provider] - 3-5 Days
[2020-06-27 21:59] LABS: Basophils # (Auto) 0.1 K/mm3 (0.0-0.1); Basophils % (Auto) 0.5 % (0.0-1.8); Eosinophils # (Auto) 0.2 K/mm3 (0.0-0.4); Eosinophils % (Auto) 1.2 % (0.0-4.3); Hemoglobin 12.1 gm/dl (10.1-14.3); Lymphocytes # (Auto) 2.1 K/mm3 (1.2-5.4); Lymphocytes % (Auto) 13.4 % (13.4-35.0); Mean Corpuscular HGB Conc 34 % (30-34); Mean Corpuscular Volume 92 fl (79-97); Monocytes # (Auto) 0.9 K/mm3 (0.0-0.8); Monocytes % (Auto) 5.9 % (0.0-7.3); Platelet Count 219 K/mm3 (140-440); Red Blood Count 3.92 M/mm3 (3.65-5.03); Red Cell Distribution Width 15.9 % (13.2-15.2)
[2020-06-27 22:14] LABS: BUN/Creatinine Ratio 15; Blood Urea Nitrogen 33 mg/dL (7-17); Calcium 8.9 mg/dL (8.4-10.2); Hemolysis Index 13
--- NOTE | 2020-06-27 22:28 | XRay Report ---
CHEST 1 VIEW INDICATION / CLINICAL INFORMATION: Chest Pain. COMPARISON: Radiograph dated 05/27/2020. FINDINGS: SUPPORT DEVICES: None. HEART / MEDIASTINUM: No significant abnormality. LUNGS / PLEURA: No significant pulmonary or pleural abnormality. No pneumothorax. ADDITIONAL FINDINGS: No significant additional findings. IMPRESSION: No acute cardiopulmonary abnormality. Signer Name: Greg Clarke MD Signed: 06/27/2020 10:24 PM Workstation Name: [id number]
[2020-06-28] MEDS ORDERED: MORPHINE 4 MG/1 ML INJ ONE (00:55)
[2020-06-28] MEDS ORDERED: hydrALAZINE 20 MG/1 ML INJ ONE (00:55)
[2020-06-28 02:11] VITALS: BP 182/88
== END 2020-06-28 02:30 | disposition home or self-care (01) ==
LOC: ED 21:17
DX: I16.0 Hypertensive urgency (principal); I11.0 Hypertensive heart disease with heart failure; I50.9 Heart failure, unspecified; R07.89 Other chest pain; E11.9 Type 2 diabetes mellitus without complications; I25.2 Old myocardial infarction; J44.9 Chronic obstructive pulmonary disease, unspecified; Z98.890 Other specified postprocedural states; Z79.82 Long term (current) use of aspirin; Z79.899 Other long term (current) drug therapy; Z91.013 Allergy to seafood; Z91.018 Allergy to other foods
CPT/HCPCS: 36415; 71045; 80048; 84484; 85025; 93005; 96374; 96375; 99285; J0360; J2270; J2405

== ENCOUNTER 2022-01-18 13:38 | Emergency (ER) | payer MEDICARE ==
[2022-01-18] MEDS ORDERED: SODIUM CHLORIDE 0.9% 500 ML 500 ML IV ONE (14:17)
[2022-01-18] MEDS ORDERED: METOPROLOL TARTRATE 5 MG/5 ML INJ IV ONE (14:19)
--- NOTE | 2022-01-18 15:01 | XRay Report ---
CHEST 2 VIEWS INDICATION / CLINICAL INFORMATION: Chest Pain. COMPARISON: June 27, 2020 FINDINGS: SUPPORT DEVICES: Right Vas-Cath is satisfactory in position with tip overlying the SVC. Pacer leads a re satisfactory in position HEART / MEDIASTINUM: No significant abnormality. LUNGS / PLEURA: Mild increased pulmonary vascularity with mild interstitial prominence in bilateral l ungs. Right lower lung atelectasis No pneumothorax. Signer Name: Chang Turner MD Signed: 01/18/2022 2:56 PM Workstation Name: [id number]
[2022-01-18 15:09] LABS: Basophils # (Auto) 0.1 K/mm3 (0.0-0.1); Basophils % (Auto) 1.4 % (0.0-1.8); Eosinophils # (Auto) 0.5 K/mm3 (0.0-0.4); Eosinophils % (Auto) 6.7 % (0.0-4.3); Hematocrit 32.1 % (30.3-42.9); Hemoglobin 10.1 gm/dl (10.1-14.3); Lymphocytes # (Auto) 1.2 K/mm3 (1.2-5.4); Lymphocytes % (Auto) 17.4 % (13.4-35.0); Mean Corpuscular HGB Conc 32 % (30-34); Mean Corpuscular Volume 96 fl (79-97); Monocytes # (Auto) 0.5 K/mm3 (0.0-0.8); Monocytes % (Auto) 7.6 % (0.0-7.3); Platelet Count 174 K/mm3 (140-440); Red Blood Count 3.34 M/mm3 (3.65-5.03)
[2022-01-18] MEDS ORDERED: MORPHINE 4 MG/1 ML INJ ONE (15:10)
[2022-01-18 15:18] LABS: Alanine Aminotransferase 14 units/L (7-56); Albumin 3.9 g/dL (3.9-5); Blood Urea Nitrogen 51 mg/dL (7-17); Hemolysis Index 8
[2022-01-18 15:19] LABS: INR 1.01 (0.87-1.13)
[2022-01-18 15:21] LABS: BUN/Creatinine Ratio 11
--- NOTE | 2022-01-18 16:38 | Emergency Department Report ---
ED Chest Pain HPI - General Chief Complaint: Chest Pain Stated Complaint: CHEST PAIN Time Seen by Provider: 01/18/22 14:17 Source: patient, family Mode of arrival: Ambulatory Limitations: Physical Limitation - History of Present Illness Initial Comments: pt reports misternal chest pain, reports squeezing , history of afib on eliquies , central noradiation -: Gradual, hour(s) Pain Radiation: none Severity: mild Severity scale (0 -10): 4 Quality: heaviness re: dyspnea - Related Data Home Medications Medication Instructions Recorded Confirmed Last Taken Quetiapine Fumarate [Seroquel] 100 mg PO BID 08/01/17 05/27/20 04/10/20 Previous Rx's Medication Instructions Recorded Last Taken Type Albuterol Mdi (or & Nicu Only) 2 puff IH QID PRN #1 inha 12/22/17 04/10/20 Rx [ProAir HFA Inhaler] Acetaminophen [Acetaminophen TAB] 650 mg PO Q4H PRN tablet 04/14/20 Unknown Rx Amiodarone [Cordarone 200 MG TAB] 200 mg PO QDAY #30 tablet 04/14/20 Unknown Rx Aspirin EC [Halfprin EC] 81 mg PO QDAY #30 tablet 04/14/20 Unknown Rx Amiodarone [Cordarone 200 MG TAB] 200 mg PO BID #60 tablet 05/29/20 Unknown Rx Apixaban [Eliquis] 5 mg PO BID 30 Days #60 tablet 05/29/20 Unknown Rx Metoprolol [Lopressor TAB] 50 mg PO BID #60 tablet 05/29/20 Unknown Rx amLODIPine 10 mg PO QDAY #30 tablet 05/29/20 Unknown Rx oxyCODONE /ACETAMINOPHEN [Percocet 1 tab PO Q6H PRN #20 tablet 05/29/20 Unknown Rx 5/325 mg] Allergies Allergy/AdvReac Type Severity Reaction Status Date / Time apple AdvReac Hives Verified 01/18/22 13:56 shell fish Allergy Swelling Uncoded 01/18/22 13:56 Heart Score - HEART Score History: Slightly suspicious EKG: Non-specific Age: > 65 Risk factors: 1-2 risk factors Troponin: < normal limit HEART Score: 4 - EKG Read Time Time EKG Completed: 12:11 EKG Read Time: 12:11 - Critical Actions Critical Actions: 4-6 pts:12-16.6% risk of adverse cardiac event. Should be admi tted ED Review of Systems ROS: Stated complaint: CHEST PAIN Other details as noted in HPI Constitutional: denies: chills, fever Eyes: denies: eye pain, eye discharge, vision change ENT: denies: ear pain, throat pain Respiratory: denies: cough, shortness of breath, wheezing Cardiovascular: denies: chest pain, palpitations Endocrine: no symptoms reported Gastrointestinal: denies: abdominal pain, nausea, diarrhea Genitourinary: denies: urgency, dysuria, discharge Musculoskeletal: denies: back pain, joint swelling, arthralgia Skin: denies: rash, lesions Neurological: denies: headache, weakness, paresthesias Psychiatric: denies: anxiety, depression Hematological/Lymphatic: denies: easy bleeding, easy bruising ED Past Medical Hx - Past Medical History Previous Medical History?: Yes Hx Hypertension: Yes Hx CVA: Yes (right sided weakness) Hx Heart Attack/AMI: Yes (1 stent) Hx Congestive Heart Failure: Yes Hx Diabetes: Yes Hx Renal Disease: Yes (RENAL INSUFFICIENCY- stent left kidney) Hx Psychiatric Treatment: Yes (BIPOLAR/SCHIZOPHRENIA) Hx COPD: Yes Additional medical history: HIGH CHOLESTEROL - Surgical History Hx Coronary Stent: Yes (x 2 in May 2015) Additional Surgical History: stent placement x 2 in 2014, knee surgery 11/2017 - Social History Smoking Status: Never Smoker - Medications Home Medications: Home Medications Medication Instructions Recorded Confirmed Last Taken Type Quetiapine Fumarate [Seroquel] 100 mg PO BID 08/01/17 05/27/20 04/10/20 History Albuterol Mdi (or & Nicu Only) 2 puff IH QID PRN #1 inha 12/22/17 05/27/20 04/10/20 Rx [ProAir HFA Inhaler] Acetaminophen [Acetaminophen TAB] 650 mg PO Q4H PRN tablet 04/14/20 05/27/20 Unknown Rx Amiodarone [Cordarone 200 MG TAB] 200 mg PO QDAY #30 tablet 04/14/20 05/27/20 Unknown Rx Aspirin EC [Halfprin EC] 81 mg PO QDAY #30 tablet 04/14/20 05/27/20 Unknown Rx Amiodarone [Cordarone 200 MG TAB] 200 mg PO BID #60 tablet 05/29/20 Unknown Rx Apixaban [Eliquis] 5 mg PO BID 30 Days #60 tablet 05/29/20 Unknown Rx Metoprolol [Lopressor TAB] 50 mg PO BID #60 tablet 05/29/20 Unknown Rx amLODIPine 10 mg PO QDAY #30 tablet 05/29/20 Unknown Rx oxyCODONE /ACETAMINOPHEN [Percocet 1 tab PO Q6H PRN #20 tablet 05/29/20 Unknown Rx 5/325 mg] ED Physical Exam - General Limitations: Physical Limitation General appearance: alert, in no apparent distress - Head Head exam: Present: atraumatic, normocephalic - Eye Eye exam: Present: normal appearance - ENT ENT exam: Present: mucous membranes moist - Neck Neck exam: Present: normal inspection - Respiratory Respiratory exam: Present: normal lung sounds bilaterally. Absent: respiratory distress - Cardiovascular Cardiovascular Exam: Present: regular rate, tachycardia. Absent: systolic murmur, diastolic murmur, rubs, gallop - GI/Abdominal GI/Abdominal exam: Present: soft, normal bowel sounds - Extremities Exam Extremities exam: Present: normal inspection - Back Exam Back exam: Present: normal inspection - Neurological Exam Neurological exam: Present: alert, oriented X3 - Psychiatric Psychiatric exam: Present: normal affect, normal mood - Skin Skin exam: Present: warm, dry, intact, normal color. Absent: rash ED Course Vital Signs 01/18/22 01/18/22 01/18/22 13:49 15:45 16:16 Temperature 99.0 F Pulse Rate 117 H 73 Respiratory 16 15 Rate Blood Pressure 167/97 Blood Pressure 174/87 [Left] O2 Sat by Pulse 100 100 97 Oximetry - Reevaluation(s) Reevaluation #1: 01/18/22 16:29 work up showed : afib rvr : controlled with lopressor chets pain negative enzymes, rpeated visits for chest pain, work up neg , vss, no distress pain meds given CKD, dialysis friday BLAS score - Blas Score Age > 65: (0) No Aspirin use within the Past 7 Days: (0) No 3 or more CAD Risk Factors: (1) Yes 2 or more Angina events in past 24 hrs: (1) Yes Known CAD with more than 50% Stenosis: (1) Yes Elevated Cardiac Markers: (0) No ST Deviation Greater than 0.5mm: (0) No BLAS Score: 3 ED Medical Decision Making - Lab Data Result diagrams: 01/18/22 14:25 01/18/22 14:25 Critical care attestation.: If time is entered above; I have spent that time in minutes in the direct care of this critically ill patient, excluding procedure time. ED Disposition Clinical Impression: Chest pain, Afib, CKD (chronic kidney disease) requiring chronic dialysis Disposition: HOME / SELF CARE / HOMELESS Is pt being admited?: No Does the pt Need Aspirin: No Condition: Stable Instructions: Nonspecific Chest Pain, Adult
[2022-01-18 16:58] VITALS: BP 172/73
--- NOTE | 2022-01-20 10:42 | Electrocardiograph Report ---
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
--- NOTE | 2022-01-20 10:42 | Electrocardiograph Report ---
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
== END 2022-01-18 17:05 | disposition home or self-care (01) ==
LOC: ED 13:38
DX: I13.0 Hypertensive heart and chronic kidney disease with heart failure and stage 1 through stage 4 chronic kidney disease, or unspecified chronic kidney disease (principal); E11.22 Type 2 diabetes mellitus with diabetic chronic kidney disease; N18.9 Chronic kidney disease, unspecified; I50.9 Heart failure, unspecified; J44.9 Chronic obstructive pulmonary disease, unspecified; E78.00 Pure hypercholesterolemia, unspecified; I48.91 Unspecified atrial fibrillation; Z91.018 Allergy to other foods; Z79.899 Other long term (current) drug therapy; Z91.013 Allergy to seafood
CPT/HCPCS: 36415; 71046; 80053; 83690; 84484; 85025; 85610; 93005; 96374; 99284; J2270; J7040; J9280

== ENCOUNTER 2022-01-19 06:45 | Inpatient (IN) | payer MEDICARE ==
[2022-01-19] MEDS ORDERED: HALOPERIDOL LACTATE 5 MG/1 ML INJ IV ONE (07:00)
--- NOTE | 2022-01-19 07:02 | Emergency Department Report ---
ED General Adult HPI - General Chief complaint: Dyspnea/Respdistress Stated complaint: SOB Time Seen by Provider: 01/19/22 06:59 Source: EMS Mode of arrival: Stretcher Limitations: No Limitations - History of Present Illness Initial comments: Patient presents by EMS secondary shortness of breath. She had been seen here yesterday for chest pain. She was not having significant dyspnea at that time. She was discharged. This morning, she states that she is short of breath. It started last night and into today. EMS was called because of this. She is having a hard time breathing. She states she just cannot catch her breath. She is a renal failure patient on dialysis Friday, , and Friday. She was not dialyzed . She was supposed to be dialyzed today. Regardless, she started having trouble breathing and EMS was called. Patient states that she is here from [place]. She tells me that she did arrange dialysis for her while she was here in [place]. Based on review of records yesterday, this is questionable. She had told the nursing staff yesterday that she had not arrange dialysis for the [place] area. Regardless she is here today with this. She denies chest pain. There has been no cough. She has had no vomiting. EMS stated that she did not tolerate BiPAP. On a nonrebreather here, she is sitting upright still stating that she cannot breathe. Severity scale (0 -10): 0 - Related Data Home Medications Medication Instructions Recorded Confirmed Last Taken Quetiapine Fumarate [Seroquel] 100 mg PO BID 08/01/17 05/27/20 04/10/20 Previous Rx's Medication Instructions Recorded Last Taken Type Albuterol Mdi (or & Nicu Only) 2 puff IH QID PRN #1 inha 12/22/17 04/10/20 Rx [ProAir HFA Inhaler] Acetaminophen [Acetaminophen TAB] 650 mg PO Q4H PRN tablet 04/14/20 Unknown Rx Amiodarone [Cordarone 200 MG TAB] 200 mg PO QDAY #30 tablet 04/14/20 Unknown Rx Aspirin EC [Halfprin EC] 81 mg PO QDAY #30 tablet 04/14/20 Unknown Rx Amiodarone [Cordarone 200 MG TAB] 200 mg PO BID #60 tablet 05/29/20 Unknown Rx Apixaban [Eliquis] 5 mg PO BID 30 Days #60 tablet 05/29/20 Unknown Rx Metoprolol [Lopressor TAB] 50 mg PO BID #60 tablet 05/29/20 Unknown Rx amLODIPine 10 mg PO QDAY #30 tablet 05/29/20 Unknown Rx oxyCODONE /ACETAMINOPHEN [Percocet 1 tab PO Q6H PRN #20 tablet 05/29/20 Unknown Rx 5/325 mg] Allergies Allergy/AdvReac Type Severity Reaction Status Date / Time apple AdvReac Hives Verified 01/19/22 06:53 shell fish Allergy Swelling Uncoded 01/19/22 06:53 ED Review of Systems ROS: Stated complaint: SOB Other details as noted in HPI Comment: All other systems reviewed and negative Constitutional: denies: fever Eyes: denies: vision change ENT: denies: throat pain Respiratory: denies: cough Cardiovascular: as per HPI Endocrine: denies: unexplained weight loss Gastrointestinal: denies: abdominal pain Genitourinary: as per HPI Musculoskeletal: denies: joint swelling Skin: denies: rash Neurological: denies: headache Hematological/Lymphatic: denies: easy bruising ED Past Medical Hx - Past Medical History Hx Hypertension: Yes Hx CVA: Yes (right sided weakness) Hx Heart Attack/AMI: Yes (1 stent) Hx Congestive Heart Failure: Yes Hx Diabetes: Yes Hx Renal Disease: Yes (RENAL INSUFFICIENCY- stent left kidney) Hx Psychiatric Treatment: Yes (BIPOLAR/SCHIZOPHRENIA) Hx COPD: Yes Additional medical history: HIGH CHOLESTEROL - Surgical History Hx Coronary Stent: Yes (x 2 in May 2015) Additional Surgical History: stent placement x 2 in 2014, knee surgery 11/2017 - Family History Family history: hypertension - Social History Smoking Status: Never Smoker - Medications Home Medications: Home Medications Medication Instructions Recorded Confirmed Last Taken Type Quetiapine Fumarate [Seroquel] 100 mg PO BID 08/01/17 05/27/20 04/10/20 History Albuterol Mdi (or & Nicu Only) 2 puff IH QID PRN #1 inha 12/22/17 05/27/20 04/10/20 Rx [ProAir HFA Inhaler] Acetaminophen [Acetaminophen TAB] 650 mg PO Q4H PRN tablet 04/14/20 05/27/20 Unknown Rx Amiodarone [Cordarone 200 MG TAB] 200 mg PO QDAY #30 tablet 04/14/20 05/27/20 Unknown Rx Aspirin EC [Halfprin EC] 81 mg PO QDAY #30 tablet 04/14/20 05/27/20 Unknown Rx Amiodarone [Cordarone 200 MG TAB] 200 mg PO BID #60 tablet 05/29/20 Unknown Rx Apixaban [Eliquis] 5 mg PO BID 30 Days #60 tablet 05/29/20 Unknown Rx Metoprolol [Lopressor TAB] 50 mg PO BID #60 tablet 05/29/20 Unknown Rx amLODIPine 10 mg PO QDAY #30 tablet 05/29/20 Unknown Rx oxyCODONE /ACETAMINOPHEN [Percocet 1 tab PO Q6H PRN #20 tablet 05/29/20 Unknown Rx 5/325 mg] ED Physical Exam - General Limitations: Physical Limitation (Dyspnea), Other (Pulse ox noted on nonrebreather and hypoxic.) General appearance: alert, in distress (Severe), other (Leaning forward. She is speaking in 3 word sentences.) - Head Head exam: Present: atraumatic, normocephalic, normal inspection - Eye Eye exam: Present: normal appearance, PERRL, EOMI. Absent: scleral icterus - ENT ENT exam: Present: mucous membranes dry, normal external ear exam - Neck Neck exam: Present: normal inspection. Absent: meningismus - Respiratory Respiratory exam: Present: respiratory distress (Severe), wheezes, rales, prolonged expiratory - Cardiovascular Cardiovascular Exam: Present: tachycardia, irregular rhythm, JVD - GI/Abdominal GI/Abdominal exam: Present: soft. Absent: tenderness - Extremities Exam Extremities exam: Present: normal capillary refill, pedal edema (Bilateral) - Back Exam Back exam: Absent: CVA tenderness (R), CVA tenderness (L) - Neurological Exam Neurological exam: Present: alert, oriented X3, CN II-XII intact. Absent: motor sensory deficit - Psychiatric Psychiatric exam: Present: anxious - Skin Skin exam: Present: warm, dry ED Course Vital Signs 01/19/22 01/19/22 01/19/22 06:50 07:28 07:30 Temperature 98.4 F Pulse Rate 110 H 96 H Respiratory 26 H 15 Rate Blood Pressure Blood Pressure 207/150 [Left] O2 Sat by Pulse 94 100 100 Oximetry 01/19/22 01/19/22 01/19/22 07:45 08:00 08:15 Temperature Pulse Rate 100 H 105 H 100 H Respiratory 20 16 21 Rate Blood Pressure 229/148 229/148 212/120 Blood Pressure [Left] O2 Sat by Pulse 100 100 100 Oximetry 01/19/22 08:31 Temperature Pulse Rate 98 H Respiratory 16 Rate Blood Pressure Blood Pressure [Left] O2 Sat by Pulse 100 Oximetry - Reevaluation(s) Reevaluation #1: 01/19/22 07:02 EMS was met. Labs were ordered. Old records noted. Reevaluation #2: 01/19/22 07:31 Patient looks more comfortable on BiPAP. Blood pressure is 220s/110s. Labs are pending. X-ray was noted. 01/19/22 07:51 EKG was noted. Patient is still complaining that she cannot breathe and pulled her BiPAP mask off. Due to her QT, haloperidol was discontinued and Ativan was ordered. Reevaluation #3: 01/19/22 08:54 Labs have been reviewed. Patient does have evidence of acute respiratory failure with hypoxia requiring BiPAP. She does have end-stage renal disease and will require dialysis as she has not been dialyzed in several days. She does not have EKG changes suggestive of STEMI. I believe that this is all volume overload related to renal failure. ED Medical Decision Making - Lab Data Result diagrams: 01/19/22 07:26 01/19/22 07:26 Rhythm strip: Atrial fibrillation with rapid ventricular response. Monitor observe 10 seconds. - EKG Data -: EKG Interpreted by Nm - EKG Data 01/19/22 07:52 [id number]-EKG shows normal sinus rhythm at 98. There is LVH. Patient has a QT that is prolonged at 513. QRS is 115. Patient has no ST elevation suggestive of STEMI. There is T wave flattening in 1 and aVL. There is T wave flattening in V5 and V6 with artifact. Sinus rhythm has replaced A. fib from yesterday. - Radiology Data Radiology results: report reviewed - Medical Decision Making Patient presented by ambulance secondary to difficulty breathing. She has evidence of pulmonary edema which did not seem to be present when she was here yesterday with chest pain. She does not radiographically have pneumonia. I do not have a suspicion for pneumonia. Patient does have renal failure. She has missed her treatment on and today. She will be admitted for ongoing management. She will likely need dialysis. She is not hyperkalemic. She does not have any obvious infectious pathology. Critical Care Time: Yes (45 minutes exclusive of all procedures based on hypoxic respiratory failure) Critical care attestation.: If time is entered above; I have spent that time in minutes in the direct care of this critically ill patient, excluding procedure time. ED Disposition Clinical Impression: Shortness of breath, ESRD on dialysis Respiratory failure Qualifiers: Chronicity: acute Respiratory failure complication: hypoxia Qualified Code(s): J96.01 - Acute respiratory failure with hypoxia Disposition: 09 ADMITTED INPATIENT Is pt being admited?: Yes Condition: Stable Referrals: RADHA KEATING MD [Primary Care Provider] - 3-5 Days
--- NOTE | 2022-01-19 07:24 | XRay Report ---
CHEST 1 VIEW 01/19/2022 7:02 AM INDICATION / CLINICAL INFORMATION: soa. COMPARISON: Previous day. FINDINGS: SUPPORT DEVICES: Unchanged. HEART / MEDIASTINUM: Stable. LUNGS / PLEURA: Mild increasing interstitial markings greater at the bases. No pneumothorax. ADDITIONAL FINDINGS: No significant additional findings. IMPRESSION: Development of mild edema. Signer Name: Tio Dewey MD Signed: 01/19/2022 7:19 AM Workstation Name: [id number]
[2022-01-19] MEDS ORDERED: ACETAMINOPHEN 500 MG TAB PO ONE (07:31)
[2022-01-19] MEDS ORDERED: LORazepam 2 MG/ML VIAL IV ONE (07:51)
[2022-01-19 08:19] LABS: Basophils # (Auto) 0.1 K/mm3 (0.0-0.1); Basophils % (Auto) 0.8 % (0.0-1.8); Eosinophils # (Auto) 0.2 K/mm3 (0.0-0.4); Eosinophils % (Auto) 1.7 % (0.0-4.3); Hematocrit 32.8 % (30.3-42.9); Hemoglobin 10.5 gm/dl (10.1-14.3); Lymphocytes # (Auto) 0.9 K/mm3 (1.2-5.4); Lymphocytes % (Auto) 9.2 % (13.4-35.0); Mean Corpuscular HGB Conc 32 % (30-34); Mean Corpuscular Volume 97 fl (79-97); Monocytes # (Auto) 0.4 K/mm3 (0.0-0.8); Monocytes % (Auto) 4.1 % (0.0-7.3); Platelet Count 188 K/mm3 (140-440); Red Blood Count 3.39 M/mm3 (3.65-5.03); Red Cell Distribution Width 17.4 % (13.2-15.2)
[2022-01-19 08:37] LABS: Blood Urea Nitrogen 53 mg/dL (7-17); Calcium 9.3 mg/dL (8.4-10.2); Hemolysis Index 13
[2022-01-19 08:56] LABS: BUN/Creatinine Ratio 13
--- NOTE | 2022-01-19 09:05 | History and Physical Report ---
History of Present Illness Date of examination: 01/12/22 Date of admission: 01/12/2022 Chief complaint: Worsening shortness of breath/acute hypoxic respiratory failure/missed hemodialysis History of present illness: 66-year-old female patient with significant past medical history of paroxysmal atrial fibrillation, diastolic congestive heart failure, end-stage renal disease on hemodialysis, COPD presented to the emergency room with worsening shortness of breath and intermittent chest pain. Patient presented yesterday and was discharged home, today complaints of worsening shortness of breath. Patient received dialysis TTS, missed her last 2 dialysis treatments Upon arrival patient was severely hypoxemic requiring BiPAP, patient has severe shortness of breath X-ray findings consistent with some fluid overload. Also has uncontrolled hypertension. Patient complains of intermittent chest discomfort and chest pain, first set of cardiac enzymes negative Past History Past Medical History: atrial fib (Paroxysmal), CAD, COPD, diabetes, dialysis, ESRD, heart failure (Diastolic), hypertension, hyperlipidemia, renal failure, stroke, other Past Surgical History: PTCA, Other (Knee surgery, AV graft) Social history: denies: smoking, alcohol abuse, prescription drug abuse Family history: no significant family history Medications and Allergies Allergies Allergy/AdvReac Type Severity Reaction Status Date / Time apple AdvReac Hives Verified 01/19/22 06:53 shell fish Allergy Swelling Uncoded 01/19/22 06:53 Home Medications Medication Instructions Recorded Confirmed Last Taken Type Quetiapine Fumarate [Seroquel] 100 mg PO BID 08/01/17 05/27/20 04/10/20 History Albuterol Mdi (or & Nicu Only) 2 puff IH QID PRN #1 inha 12/22/17 05/27/20 04/10/20 Rx [ProAir HFA Inhaler] Acetaminophen [Acetaminophen TAB] 650 mg PO Q4H PRN tablet 04/14/20 05/27/20 Unknown Rx Amiodarone [Cordarone 200 MG TAB] 200 mg PO QDAY #30 tablet 04/14/20 05/27/20 Unknown Rx Aspirin EC [Halfprin EC] 81 mg PO QDAY #30 tablet 04/14/20 05/27/20 Unknown Rx Amiodarone [Cordarone 200 MG TAB] 200 mg PO BID #60 tablet 05/29/20 Unknown Rx Apixaban [Eliquis] 5 mg PO BID 30 Days #60 tablet 05/29/20 Unknown Rx Metoprolol [Lopressor TAB] 50 mg PO BID #60 tablet 05/29/20 Unknown Rx amLODIPine 10 mg PO QDAY #30 tablet 05/29/20 Unknown Rx oxyCODONE /ACETAMINOPHEN [Percocet 1 tab PO Q6H PRN #20 tablet 05/29/20 Unknown Rx 5/325 mg] Review of Systems Constitutional: fatigue, weakness, no weight loss, no weight gain Ears, nose, mouth and throat: no nasal congestion, no nasal discharge Cardiovascular: chest pain, orthopnea, shortness of breath Respiratory: shortness of breath, dyspnea on exertion Gastrointestinal: no abdominal pain, no nausea, no vomiting Genitourinary Female: no flank pain, no dysuria Musculoskeletal: no myalgias, no arthritis Integumentary: no rash, no lesions Neurological: weakness, no numbness, no tingling Psychiatric: no anxiety, no depression Endocrine: no cold intolerance, no heat intolerance Hematologic/Lymphatic: no easy bruising, no easy bleeding Allergic/Immunologic: no urticaria, no allergic rhinitis Exam - Constitutional Vitals: Temp Pulse Resp BP Pulse Ox 98.4 F 79 38 H 212/120 100 01/19/22 06:50 01/19/22 08:55 01/19/22 08:55 01/19/22 08:15 01/19/22 08:55 General appearance: Present: mild distress, cachectic, disheveled, other (On BiPAP) - EENT Eyes: Present: PERRL, EOM intact - Neck Neck: Present: supple, normal ROM - Respiratory Respiratory effort: normal Respiratory: bilateral: diminished, rales, negative: rhonchi, wheezing - Cardiovascular Rhythm: regular Heart Sounds: Present: S1 & S2 - Extremities Extremities: no ischemia Extremity abnormal: edema - Abdominal General gastrointestinal: Present: soft, non-tender, non-distended, normal bowel sounds - Integumentary Integumentary: Present: clear, warm - Musculoskeletal Musculoskeletal: generalized weakness - Psychiatric Psychiatric: appropriate mood/affect, other (Anxious) - Neurologic Neurologic: moves all extremities HEART Score - HEART Score Troponin: Troponin T < 0.010 ng/mL (0.00-0.029) 01/19/22 07:26 Results - Labs CBC & Chem 7: 01/19/22 07:26 01/19/22 07:26 Labs: Abnormal lab results 01/19/22 01/19/22 Range/Units 07:26 07:26 RBC 3.39 L (3.65-5.03) M/mm3 RDW 17.4 H (13.2-15.2) % Lymph % (Auto) 9.2 L (13.4-35.0) % Lymph # (Auto) 0.9 L (1.2-5.4) K/mm3 Seg Neutrophils % 84.2 H (40.0-70.0) % Seg Neutrophils # 8.5 H (1.8-7.7) K/mm3 Chloride 108.0 H (98-107) mmol/L Carbon Dioxide 16 L (22-30) mmol/L BUN 53 H (7-17) mg/dL Creatinine 4.1 H (0.6-1.2) mg/dL Glucose 172 H (65-100) mg/dL NT-Pro-B Natriuret Pep 03921 H (0-900) pg/mL Assessment and Plan --Acute hypoxic respiratory failure; requiring BiPAP Status: Acute Multifactorial , missed hemodialysis and fluid overload secondary to acute exacerbation of COPD Nebulizers, oxygen titrate O2 sats to more than 90%, BiPAP as needed Pulmonary evaluation if needed, IV steroids, supportive care --Noncompliant with hemodialysis/fluid overload Nephrology consulted, stat hemodialysis HD per schedule, avoid nephrotoxins, renal dosing medications --ESRD; on hemodialysis TTS HD per schedule, avoid nephrotoxin, renal dosing of medications --Hypertensive urgency; Resume home antihypertensives As needed labetalol Closely monitor blood pressures and adjust as needed --Paroxysmal atrial fibrillation Status: Acute Beta-blockers, amiodarone and Eliquis --Chest pain/acute coronary syndrome Status: Acute Serial cardiac enzymes Cardiac medications Echocardiogram for LV function ejection fraction Cardiology consult Heart cath 07/2017; widely patent proximal to mid and mid to distal LAD stents no significant in-stent restenosis EF 50 to 55% Thallium stress test/12/2017; normal study EF 61% echo 04/2020; EF 50 to 55% --Acute on chronic diastolic CHF (congestive heart failure) Status: Chronic IV diuretics, input output monitoring, fluid restriction Cardiology evaluation, echocardiogram for LV function ejection fraction --Acute exacerbation of COPD (chronic obstructive pulmonary disease) Status: Chronic Oxygen titrate O2 sats to more than 90% BiPAP as needed, nebulizers, IV steroids Pulmonary consult if needed --Noncompliance; Counseling done patient strongly advised to comply with medications, diet, follow-up visits Mainly hemodialysis Patient verbalized understanding - DVT prophylaxis Status: Acute Patient is on Eliquis We will closely monitor the patient and adjust management as needed Plan of care reviewed with the patient and her nurse Also discussed with lumber carrier Dr. Plascencia
[2022-01-19] MEDS ORDERED: ALBUTEROL 2.5 MG/3 ML NEBU IH PRN (09:10)
[2022-01-19] MEDS ORDERED: ACETAMINOPHEN 325 MG TAB PO PRN ×3 (09:10→09:55)
[2022-01-19] MEDS ORDERED: ONDANSETRON 4 MG/2 ML INJ IV PRN ×2 (09:12→09:55)
[2022-01-19] MEDS ORDERED: MORPHINE 4 MG/1 ML INJ IV PRN ×2 (09:20→09:55)
[2022-01-19] MEDS ORDERED: oxyCODONE /ACETAMINOPHEN 5-325MG TAB PO PRN (09:55)
[2022-01-19] MEDS: DOCUSATE SODIUM 100 MG CAP PO SCH ×2 (10:36→22:09)
[2022-01-19] MEDS: ASPIRIN EC 81 MG TAB PO SCH (10:37)
[2022-01-19] MEDS: QUEtiapine 100 MG TAB PO SCH ×2 (10:37→22:18)
[2022-01-19] MEDS: APIXABAN 5 MG TAB PO SCH ×2 (10:37→22:09)
[2022-01-19] MEDS: METOPROLOL TARTRATE 50 MG TAB PO SCH ×2 (10:37→22:09)
[2022-01-19] MEDS ORDERED: SODIUM CHLORIDE 0.9% 100 ML IV PRN (10:51)
[2022-01-19] MEDS ORDERED: HEPARIN 10,000 UNITS/10 ML VIAL IV PRN (10:51)
[2022-01-19] MEDS ORDERED: FUROSEMIDE 20 MG TAB PO ONE (11:00)
[2022-01-19] MEDS ORDERED: FUROSEMIDE 40 MG/4 ML INJ IV SCH (11:00)
[2022-01-19] MEDS ORDERED: cloNIDine 0.2 MG TAB PO ONE (11:00)
[2022-01-19] MEDS ORDERED: LORazepam 2 MG/ML VIAL IM ONE (11:01)
[2022-01-19 12:28] LABS: Hepatitis B Surface Antigen Non-Reactive (Negative); Hepatitis C Virus Antibody Non-Reactive (NonReactive)
--- NOTE | 2022-01-19 14:44 | Consultation ---
History of Present Illness - Reason for Consult Consult date: 01/19/22 end stage renal disease - History of Present Illness The patient is a 66 YO female with history of Paroxysmal atrial fibrillation, HFpEF, COPD and ESRD on hemodialysis who presented to [facility] ED with worsening shortness of breath and intermittent chest pain. Patient was not able to provide any history and there was no family member at the bedside. She presented to ED 01/18 and was discharged home. Patient received dialysis TTS, missed her last 2 dialysis treatments. Upon arrival patient was severely hypoxemic requiring BiPAP. X-ray showed fluid overload. Initial BP was 229/148. Patient was admitted for further evaluation. Nephrology was consulted for ESRD management. Past History Past Medical History: atrial fib (Paroxysmal), CAD, COPD, diabetes, dialysis, ESRD, heart failure (Diastolic), hypertension, hyperlipidemia, renal failure, stroke, other Past Surgical History: PTCA, Other (Knee surgery, AV graft) Social history: denies: smoking, alcohol abuse, prescription drug abuse Family history: no significant family history Medications and Allergies Allergies Allergy/AdvReac Type Severity Reaction Status Date / Time apple AdvReac Hives Verified 01/19/22 06:53 shell fish Allergy Swelling Uncoded 01/19/22 06:53 Home Medications Medication Instructions Recorded Confirmed Last Taken Type Quetiapine Fumarate [Seroquel] 100 mg PO BID 08/01/17 05/27/20 04/10/20 History Albuterol Mdi (or & Nicu Only) 2 puff IH QID PRN #1 inha 12/22/17 05/27/20 04/10/20 Rx [ProAir HFA Inhaler] Acetaminophen [Acetaminophen TAB] 650 mg PO Q4H PRN tablet 04/14/20 05/27/20 Unknown Rx Amiodarone [Cordarone 200 MG TAB] 200 mg PO QDAY #30 tablet 04/14/20 05/27/20 Unknown Rx Aspirin EC [Halfprin EC] 81 mg PO QDAY #30 tablet 04/14/20 05/27/20 Unknown Rx Amiodarone [Cordarone 200 MG TAB] 200 mg PO BID #60 tablet 05/29/20 Unknown Rx Apixaban [Eliquis] 5 mg PO BID 30 Days #60 tablet 05/29/20 Unknown Rx Metoprolol [Lopressor TAB] 50 mg PO BID #60 tablet 05/29/20 Unknown Rx amLODIPine 10 mg PO QDAY #30 tablet 05/29/20 Unknown Rx oxyCODONE /ACETAMINOPHEN [Percocet 1 tab PO Q6H PRN #20 tablet 05/29/20 Unknown Rx 5/325 mg] Active Meds: Active Medications Acetaminophen (Acetaminophen 325 Mg Tab) 650 mg PO Q4H PRN PRN Reason: Pain MILD(1-3)/Fever >100.5/SILVA Albuterol (Albuterol 2.5 Mg/3 Ml Nebu) 2.5 mg IH QID PRN PRN Reason: Shortness Of Breath Amiodarone HCl (Amiodarone 200 Mg Tab) 200 mg PO BID [facility] Apixaban (Apixaban 5 Mg Tab) 5 mg PO BID [facility] Last Admin: 01/19/22 10:37 Dose: 5 mg Aspirin (Aspirin Ec 81 Mg Tab) 81 mg PO QDAY [facility] Last Admin: 01/19/22 10:37 Dose: 81 mg Docusate Sodium (Docusate Sodium 100 Mg Cap) 100 mg PO BID [facility] Last Admin: 01/19/22 10:36 Dose: 100 mg Famotidine (Famotidine 20 Mg/2 Ml Inj) 20 mg IV BID [facility] Furosemide (Furosemide 40 Mg/4 Ml Inj) 40 mg IV 0600,1800 [facility] Heparin Sodium (Porcine) (Heparin 10,000 Units/10 Ml Vial) 3,000 unit IV KARLENE PRN PRN Reason: hemodialysis Hydralazine HCl (Hydralazine 25 Mg Tab) 25 mg PO Q8HR [facility] Sodium Chloride (Nacl 0.9%) 100 mls @ 999 mls/hr IV KARLENE PRN PRN Reason: Hypotension Labetalol HCl (Labetalol 20 Mg/4 Ml Inj) 10 mg IV Q4H PRN PRN Reason: Hypertension Methylprednisolone Sodium Succinate (Methylprednisolone Sod Succinate 40 Mg/1 Ml Inj) 40 mg IV Q8HR [facility] Metoprolol Tartrate (Metoprolol Tartrate 50 Mg Tab) 50 mg PO BID [facility] Last Admin: 01/19/22 10:37 Dose: 50 mg Morphine Sulfate (Morphine 4 Mg/1 Ml Inj) 2 mg IV Q4H PRN PRN Reason: Pain , Severe (7-10) Ondansetron HCl (Ondansetron 4 Mg/2 Ml Inj) 4 mg IV Q8H PRN PRN Reason: Nausea And Vomiting Oxycodone/Acetaminophen (Oxycodone /Acetaminophen 5-325mg Tab) 1 tab PO Q6H PRN PRN Reason: Pain, Moderate (4-6) Quetiapine Fumarate (Quetiapine 100 Mg Tab) 100 mg PO BID [facility] Last Admin: 01/19/22 10:37 Dose: 100 mg Sodium Chloride (Sodium Chloride 0.9% 10 Ml Flush Syringe) 10 ml IV BID [facility] Last Admin: 01/19/22 11:56 Dose: 10 ml Sodium Chloride (Sodium Chloride 0.9% 10 Ml Flush Syringe) 10 ml IV BID [facility] Last Admin: 01/19/22 11:56 Dose: 10 ml Sodium Chloride (Sodium Chloride 0.9% 10 Ml Flush Syringe) 10 ml IV PRN PRN PRN Reason: LINE FLUSH Review of Systems ROS unobtainable: due to mental status Exam - Vital Signs Vital signs: Vital Signs Temp Pulse Resp BP Pulse Ox 98.4 F 110 H 26 H 207/150 94 01/19/22 06:50 01/19/22 06:50 01/19/22 06:50 01/19/22 06:50 01/19/22 06:50 Results - Lab Results 01/20/22 05:09 01/20/22 05:09 Most recent lab results ABG pH 7.176 (7.320-7.450) L 01/19/22 09:13 ABG O2 Saturation 99.1 (0-100) 01/19/22 09:13 Calcium 9.3 mg/dL (8.4-10.2) 01/19/22 07:26 Magnesium 2.00 mg/dL (1.7-2.3) 01/19/22 07:26 Assessment and Plan 1. ESRD: Unable to get any information at this time 2/2 AMS. Admitted with volume overload and metabolic acidosis. Hemodialysis: 01/19. 2. FEN: Metabolic acidosis, s/p HD, monitor. Volume control, UF with HD as tolerated. Monitor lytes and volume status. 3. Acute hypoxic resp failure, POA: 2/2 COPD exacerbation +/- volume overload. Supplemental O2 as needed. Nebs and steroids. Volume control with HD. Monitor. 4. Chest pain: Serial cardiac enzymes. Cardiology consult. 5. Acute on chronic diastolic CHF: Volume control thur HD. Fluid restriction, monitor I/O. Cardiology evaluation, echocardiogram for LV function ejection fraction. 6. Acute exacerbation of COPD: Titrate O2 sats to more than 90%. Nebs and steroids. BiPAP as needed. 7. Paroxysmal A.fib: Eliquis and Amio. Monitor. 8. Hypertensive urgency, POA: Volume control with HD. Continue home BP meds. Monitor BP, controlled at the time of eval. 9. Normocytic Anemia, POA: Chronic. 2/2 ESRD. Epogen with HD as needed. Monitor. 10. Acute metabolic Encephalopathy, POA: Monitor. Subjective: Patient was seen and examined at the bedside. Examination: General appearance: well-developed, appears stated age, in resp distress, on O2 HEENT: atraumatic, ANA Neck: trachea midline Respiratory: bilaterally rhonchi and rales heard Heart: S1S2, no murmur Abdomen: soft, bowel sounds heard, NT Integumentary: no obvious rash Neurologic: lethargic, not following any command Ext: no edema Hemodialysis access: R IJ tunnel catheter, R arm AVF/AVG
[2022-01-19] MEDS: AMIODARONE 200 MG TAB PO SCH ×2 (17:50→22:09)
[2022-01-19] MEDS: FAMOTIDINE 20 MG/2 ML INJ IV SCH ×2 (17:50→22:09)
[2022-01-19] MEDS: hydrALAZINE 25 MG TAB PO SCH ×2 (17:51→22:09)
[2022-01-19] MEDS: methylPREDNISolone Sod Succinate 40 MG/1 ML INJ IV SCH ×2 (17:52→22:09)
[2022-01-19] MEDS: FUROSEMIDE 40 MG/4 ML INJ IV SCH (19:18)
--- NOTE | 2022-01-20 00:27 | Consultation ---
DATE OF CONSULTATION: 01/19/2022 HISTORY OF PRESENT ILLNESS: The patient is a 66-year-old female with a history of multiple medical problems including end-stage renal disease, hypertension, paroxysmal atrial fibrillation, congestive heart failure and COPD. She is here from [place]. She has missed two dialysis sessions. She was seen in the Emergency Room yesterday and came back today with shortness of breath. She did not have chest discomfort in the past. There also is a history of a previous stroke and previous coronary stent. Findings were consistent with volume overload. Cardiology was requested to evaluate the patient. The patient is currently sleeping. The history was obtained from the medical record. SOCIAL HISTORY: Smoking, none. Alcohol, no heavy use. FAMILY HISTORY: No significant history described in the medical record. PAST SURGICAL HISTORY: Knee surgery, AV graft surgery. ALLERGIES: APPLES, SHELLFISH. MEDICATIONS: See the nurse's list. REVIEW OF SYSTEMS: Other than what is described above, there is a description of fatigue, weakness, history of schizophrenia and bipolar disorders. PHYSICAL EXAMINATION: GENERAL: Well-developed, well-nourished, no acute distress. HEENT: Eyes, nose, and throat unremarkable. NECK: Reveals no clearcut JVD or bruits. Neck is supple, no masses. LUNGS: Diminished breath sounds. HEART: Regular rhythm. No rubs, murmurs or gallops appreciable. Heart sounds somewhat distant. ABDOMEN: Soft, nontender, no masses. EXTREMITIES: No cyanosis, clubbing. There is trace pedal edema. Peripheral pulses are intact. NEUROLOGIC: Deferred. IMPRESSION: 1. History of diastolic heart failure with evidence of volume overload secondary to missing 2 dialysis sessions. BNP is markedly elevated as well. The patient is on dialysis at this time for volume management and hypertension therapy, oral heart failure therapy will be adjusted. The previous workup will be reviewed. 2. Status post chest pain yesterday: There is a history of coronary artery disease, but the troponins are normal so far. 3. Hypertension: There was hypertensive urgency on admission. 4. Paroxysmal atrial fibrillation. 5. History of cerebrovascular accident with right hemiparesis. 6. Hyperlipidemia. 7. History of psychiatric disorder. 8. History of chronic obstructive pulmonary disease. PLAN: Congestive heart failure and hypertension therapy, urgent dialysis, stress test may need to be considered. Consider echocardiography if there has been no workup in the past 12 months. Thank you for this consultation. TID: [id number] RECEIPT: [id number] QING/ZACHARY
[2022-01-20 05:50] LABS: Basophils % (Auto) 0.6 % (0.0-1.8); Eosinophils % (Auto) 0.2 % (0.0-4.3); Hematocrit 34.3 % (30.3-42.9); Hemoglobin 10.8 gm/dl (10.1-14.3); Lymphocytes # (Auto) 0.5 K/mm3 (1.2-5.4); Lymphocytes % (Auto) 8.3 % (13.4-35.0); Mean Corpuscular HGB Conc 31 % (30-34); Mean Corpuscular Volume 96 fl (79-97); Monocytes # (Auto) 0.1 K/mm3 (0.0-0.8); Monocytes % (Auto) 1.4 % (0.0-7.3); Platelet Count 175 K/mm3 (140-440); Red Blood Count 3.57 M/mm3 (3.65-5.03); Red Cell Distribution Width 17.3 % (13.2-15.2)
[2022-01-20] MEDS: methylPREDNISolone Sod Succinate 40 MG/1 ML INJ IV SCH ×3 (05:53→22:03)
[2022-01-20] MEDS: FUROSEMIDE 40 MG/4 ML INJ IV SCH ×2 (05:53→17:24)
[2022-01-20] MEDS: hydrALAZINE 25 MG TAB PO SCH ×3 (05:53→22:03)
[2022-01-20 05:58] LABS: Calcium 9.4 mg/dL (8.4-10.2)
[2022-01-20] MEDS: APIXABAN 5 MG TAB PO SCH ×2 (09:07→22:03)
[2022-01-20] MEDS: FAMOTIDINE 20 MG/2 ML INJ IV SCH ×2 (09:07→22:03)
[2022-01-20] MEDS: QUEtiapine 100 MG TAB PO SCH ×2 (09:07→22:03)
[2022-01-20] MEDS: ASPIRIN EC 81 MG TAB PO SCH (09:07)
[2022-01-20] MEDS: DOCUSATE SODIUM 100 MG CAP PO SCH ×2 (09:07→22:03)
[2022-01-20] MEDS: AMIODARONE 200 MG TAB PO SCH ×2 (09:07→22:03)
[2022-01-20] MEDS: METOPROLOL TARTRATE 50 MG TAB PO SCH ×2 (09:07→22:04)
--- NOTE | 2022-01-20 09:13 | Progress Note ---
Assessment and Plan Assessment and plan: --Acute hypoxic respiratory failure; requiring BiPAP Status: Acute Multifactorial , missed hemodialysis and fluid overload secondary to acute exacerbation of COPD Nebulizers, oxygen titrate O2 sats to more than 90%, BiPAP as needed Pulmonary evaluation if needed, IV steroids, supportive care --Noncompliant with hemodialysis/fluid overload Nephrology consulted, stat hemodialysis HD per schedule, avoid nephrotoxins, renal dosing medications --ESRD; on hemodialysis TTS HD per schedule, avoid nephrotoxin, renal dosing of medications --Hypertensive urgency; Resume home antihypertensives As needed labetalol Closely monitor blood pressures and adjust as needed --Paroxysmal atrial fibrillation Status: Acute Beta-blockers, amiodarone and Eliquis --Chest pain/acute coronary syndrome Status: Acute Serial cardiac enzymes Cardiac medications Echocardiogram for LV function ejection fraction Cardiology consult Heart cath 07/2017; widely patent proximal to mid and mid to distal LAD stents no significant in-stent restenosis EF 50 to 55% Thallium stress test/12/2017; normal study EF 61% echo 04/2020; EF 50 to 55% --Acute on chronic diastolic CHF (congestive heart failure) Status: Chronic IV diuretics, input output monitoring, fluid restriction Cardiology evaluation, echocardiogram for LV function ejection fraction --Acute exacerbation of COPD (chronic obstructive pulmonary disease) Status: Chronic Oxygen titrate O2 sats to more than 90% BiPAP as needed, nebulizers, IV steroids Pulmonary consult if needed --Noncompliance; Counseling done patient strongly advised to comply with medications, diet, fol low-up visits Mainly hemodialysis Patient verbalized understanding - DVT prophylaxis Status: Acute Patient is on Eliquis We will closely monitor the patient and adjust management as needed Plan of care reviewed with the patient and her nurse business center representative Dr. Plascencia following 01/20/2022; patient feels slightly better continue current business management consultant recommendations noted and appreciated History Interval history: Seen and examined the patient at the bedside Patient's chart and medications reviewed Patient feels slightly better Denies chest pain or shortness of breath Patient is searching her room saying she lost her $10 Slightly confused Vital signs noted Hospitalist Physical - Constitutional Vitals: Temp Pulse Resp BP Pulse Ox 99.0 F 76 20 173/86 99 01/20/22 08:08 01/20/22 08:08 01/20/22 08:08 01/20/22 08:08 01/20/22 08:08 General appearance: Present: no acute distress, cachectic, disheveled, other (On BiPAP) - EENT Eyes: Present: PERRL, EOM intact - Neck Neck: Present: supple, normal ROM - Respiratory Respiratory effort: normal Respiratory: bilateral: diminished, rales, negative: rhonchi, wheezing - Cardiovascular Rhythm: regular Heart Sounds: Present: S1 & S2 - Extremities Extremities: no ischemia, pulses intact - Abdominal General gastrointestinal: soft, non-tender, non-distended, normal bowel sounds - Integumentary Integumentary: Present: clear, warm - Psychiatric Psychiatric: appropriate mood/affect, cooperative - Neurologic Neurologic: moves all extremities HEART Score - HEART Score Troponin: Troponin T < 0.010 ng/mL (0.00-0.029) 01/19/22 07:26 Results - Labs CBC & Chem 7: 01/20/22 05:09 01/20/22 05:09 Labs: Laboratory Last Values WBC 5.5 K/mm3 (4.5-11.0) 01/20/22 05:09 RBC 3.57 M/mm3 (3.65-5.03) L 01/20/22 05:09 Hgb 10.8 gm/dl (10.1-14.3) 01/20/22 05:09 Hct 34.3 % (30.3-42.9) 01/20/22 05:09 MCV 96 fl (79-97) 01/20/22 05:09 MCH 30 pg (28-32) 01/20/22 05:09 MCHC 31 % (30-34) 01/20/22 05:09 RDW 17.3 % (13.2-15.2) H 01/20/22 05:09 Plt Count 175 K/mm3 (140-440) 01/20/22 05:09 Lymph % (Auto) 8.3 % (13.4-35.0) L 01/20/22 05:09 [place] % (Auto) 1.4 % (0.0-7.3) 01/20/22 05:09 Eos % (Auto) 0.2 % (0.0-4.3) 01/20/22 05:09 Baso % (Auto) 0.6 % (0.0-1.8) 01/20/22 05:09 Lymph # (Auto) 0.5 K/mm3 (1.2-5.4) L 01/20/22 05:09 [place] # (Auto) 0.1 K/mm3 (0.0-0.8) 01/20/22 05:09 Eos # (Auto) 0.0 K/mm3 (0.0-0.4) 01/20/22 05:09 Baso # (Auto) 0.0 K/mm3 (0.0-0.1) 01/20/22 05:09 Seg Neutrophils % 89.5 % (40.0-70.0) H 01/20/22 05:09 Seg Neutrophils # 4.9 K/mm3 (1.8-7.7) 01/20/22 05:09 ABG pH 7.176 (7.320-7.450) L 01/19/22 09:13 POC ABG pCO2 46.0 mmHg (32.0-48.0) 01/19/22 09:13 POC ABG pO2 168.7 mmHg (83-108) H 01/19/22 09:13 POC ABG HCO3 16.6 01/19/22 09:13 ABG O2 Saturation 99.1 (0-100) 01/19/22 09:13 POC ABG Base Excess -11.4 01/19/22 09:13 ABG Hemoglobin 11.0 (12.0-17.5) L 01/19/22 09:13 ABG Oxyhemoglobin 98.1 (94-98) H 01/19/22 09:13 ABG Methemoglobin 0.3 (0.0-1.5) 01/19/22 09:13 ABG Sodium Not Reportable 01/19/22 09:13 ABG Potassium Not Reportable 01/19/22 09:13 ABG Chloride Not Reportable 01/19/22 09:13 ABG Glucose Not Reportable 01/19/22 09:13 Carboxyhemoglobin 0.7 (0.5-1.5) 01/19/22 09:13 FiO2 % 45.0 01/19/22 09:13 Sodium 142 mmol/L (137-145) 01/20/22 05:09 Potassium 4.7 mmol/L (3.6-5.0) 01/20/22 05:09 Chloride 102.7 mmol/L (98-107) 01/20/22 05:09 Carbon Dioxide 22 mmol/L (22-30) 01/20/22 05:09 Anion Gap 22 mmol/L 01/20/22 05:09 BUN 27 mg/dL (7-17) H 01/20/22 05:09 Creatinine 2.7 mg/dL (0.6-1.2) H 01/20/22 05:09 Estimated GFR 21 ml/min 01/20/22 05:09 BUN/Creatinine Ratio 10 % 01/20/22 05:09 Glucose 139 mg/dL (65-100) H 01/20/22 05:09 Calcium 9.4 mg/dL (8.4-10.2) 01/20/22 05:09 Magnesium 2.00 mg/dL (1.7-2.3) 01/19/22 07:26 Troponin T < 0.010 ng/mL (0.00-0.029) 01/19/22 07:26 NT-Pro-B Natriuret Pep 10745 pg/mL (0-900) H 01/19/22 07:26 Arterial Blood Glucose Not Reportable 01/19/22 09:13 Hepatitis A IgM Ab Non-reactive (NonReactive) 01/19/22 11:38 Hep Bs Antigen Non-reactive (Negative) 01/19/22 11:38 Hep B Core IgM Ab Non-reactive (NonReactive) 01/19/22 11:38 Hepatitis C Antibody Non-reactive (NonReactive) 01/19/22 11:38 [place]/IV: Voiding Method Toilet Active Medications - Current Medications Current Medications: Generic Name Dose Route Start Last Admin Trade Name Freq PRN Reason Stop Dose Admin Acetaminophen 650 mg 01/19/22 09:10 Acetaminophen 325 Mg Tab PO Q4H PRN Pain MILD(1-3)/Fever >100.5/SILVA Albuterol 2.5 mg 01/19/22 09:10 Albuterol 2.5 Mg/3 Ml Nebu IH QID PRN Shortness Of Breath Amiodarone HCl 200 mg 01/19/22 10:00 01/20/22 09:07 Amiodarone 200 Mg Tab PO 200 mg BID [facility] Administration Apixaban 5 mg 01/19/22 10:00 01/20/22 09:07 Apixaban 5 Mg Tab PO 5 mg BID [facility] Administration Aspirin 81 mg 01/19/22 10:00 01/20/22 09:07 Aspirin Ec 81 Mg Tab PO 81 mg QDAY [facility] Administration Docusate Sodium 100 mg 01/19/22 10:00 01/20/22 09:07 Docusate Sodium 100 Mg Cap PO 100 mg BID [facility] Administration Famotidine 20 mg 01/19/22 10:00 01/20/22 09:07 Famotidine 20 Mg/2 Ml Inj IV 20 mg BID [facility] Administration Furosemide 40 mg 01/19/22 18:00 01/20/22 05:53 Furosemide 40 Mg/4 Ml Inj IV 40 mg 0600,1800 [facility] Administration Heparin Sodium (Porcine) 3,000 unit 01/19/22 10:51 Heparin 10,000 Units/10 Ml Vial IV KARLENE PRN hemodialysis Hydralazine HCl 25 mg 01/19/22 14:00 01/20/22 05:53 Hydralazine 25 Mg Tab PO 25 mg Q8HR [facility] Administration Sodium Chloride 100 mls @ 999 mls/hr 01/19/22 10:51 Nacl 0.9% IV KARLENE PRN Hypotension Labetalol HCl 10 mg 01/19/22 10:11 Labetalol 20 Mg/4 Ml Inj IV Q4H PRN Hypertension Methylprednisolone Sodium Succinate 40 mg 01/19/22 14:00 01/20/22 05:53 Methylprednisolone Sod Succinate 40 Mg/1 Ml Inj IV 40 mg Q8HR [facility] Administration Metoprolol Tartrate 50 mg 01/19/22 10:00 01/20/22 09:07 Metoprolol Tartrate 50 Mg Tab PO 50 mg BID [facility] Administration Morphine Sulfate 2 mg 01/19/22 09:55 Morphine 4 Mg/1 Ml Inj IV Q4H PRN Pain , Severe (7-10) Ondansetron HCl 4 mg 01/19/22 09:55 Ondansetron 4 Mg/2 Ml Inj IV Q8H PRN Nausea And Vomiting Oxycodone/Acetaminophen 1 tab 01/19/22 09:10 Oxycodone /Acetaminophen 5-325mg Tab PO Q6H PRN Pain, Moderate (4-6) Quetiapine Fumarate 100 mg 01/19/22 10:00 01/20/22 09:07 Quetiapine 100 Mg Tab PO 100 mg BID [facility] Administration Sodium Chloride 10 ml 01/19/22 10:00 01/20/22 09:07 Sodium Chloride 0.9% 10 Ml Flush Syringe IV 10 ml BID [facility] Administration Sodium Chloride 10 ml 01/19/22 10:00 01/20/22 09:07 Sodium Chloride 0.9% 10 Ml Flush Syringe IV Not Given BID [facility] Sodium Chloride 10 ml 01/19/22 09:55 Sodium Chloride 0.9% 10 Ml Flush Syringe IV PRN PRN LINE FLUSH
--- NOTE | 2022-01-20 10:46 | Electrocardiograph Report ---
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
[2022-01-20] MEDS: NICOTINE 14 MG/24 HR PATCH TD SCH (11:54)
--- NOTE | 2022-01-20 12:15 | Progress Note ---
Assessment and Plan - Patient Problems (1) CKD (chronic kidney disease) requiring chronic dialysis Current Visit: Yes Status: Acute (2) Acute chest pain Current Visit: No Status: Acute Subjective Date of service: 01/20/22 Interval history: CP -RESOLVED,,,BREATHING BETTER Objective Vital Signs Temp Pulse Pulse Resp BP BP Pulse Ox 01/20/22 11:15 74 18 99 01/20/22 08:08 99.0 F 76 20 173/86 99 01/20/22 07:10 74 01/20/22 04:27 98.0 F 79 18 143/70 98 01/19/22 23:23 95 01/19/22 23:09 85 20 98 01/19/22 23:05 98.6 F 74 24 147/73 100 01/19/22 19:55 97.6 F 72 16 154/82 100 01/19/22 17:27 95 01/19/22 16:45 98.4 F 91 H 18 149/98 01/19/22 16:30 88 124/70 01/19/22 16:15 102 H 123/71 01/19/22 16:00 77 132/70 01/19/22 15:45 96 H 130/80 01/19/22 15:30 86 125/79 01/19/22 15:15 86 101/69 01/19/22 15:00 85 146/68 01/19/22 14:45 74 122/87 01/19/22 14:30 79 98/80 01/19/22 14:15 77 116/74 01/19/22 14:00 73 99/87 01/19/22 13:45 101 H 124/86 01/19/22 13:30 98.4 F 125 H 18 152/107 01/19/22 12:45 130 H 20 132/70 100 01/19/22 12:31 121 H 20 146/80 100 01/19/22 12:15 128 H 16 151/90 100 01/19/22 12:01 134 H 14 154/92 100 01/19/22 11:45 145 H 20 186/92 98 01/19/22 11:31 156 H 18 181/107 100 01/19/22 11:15 133 H 19 171/109 100 Pulse Ox 01/20/22 11:15 01/20/22 08:08 01/20/22 07:10 01/20/22 04:27 01/19/22 23:23 01/19/22 23:09 01/19/22 23:05 01/19/22 19:55 01/19/22 17:27 01/19/22 16:45 98 01/19/22 16:30 01/19/22 16:15 01/19/22 16:00 01/19/22 15:45 01/19/22 15:30 01/19/22 15:15 01/19/22 15:00 01/19/22 14:45 01/19/22 14:30 01/19/22 14:15 01/19/22 14:00 01/19/22 13:45 01/19/22 13:30 98 01/19/22 12:45 01/19/22 12:31 01/19/22 12:15 01/19/22 12:01 01/19/22 11:45 01/19/22 11:31 01/19/22 11:15 - Physical Examination General: No Apparent Distress HEENT: Positive: PERRL Neck: Positive: neck supple Cardiac: Positive: Regular Rhythm Lungs: Positive: clear to auscultation Abdomen: Positive: Unremarkable Extremities: Present: normal - Labs and Meds CBC 01/20/22 Range/Units 05:09 WBC 5.5 (4.5-11.0) K/mm3 RBC 3.57 L (3.65-5.03) M/mm3 Hgb 10.8 (10.1-14.3) gm/dl Hct 34.3 (30.3-42.9) % Plt Count 175 (140-440) K/mm3 Lymph # (Auto) 0.5 L (1.2-5.4) K/mm3 [place] # (Auto) 0.1 (0.0-0.8) K/mm3 Eos # (Auto) 0.0 (0.0-0.4) K/mm3 Baso # (Auto) 0.0 (0.0-0.1) K/mm3 Comprehensive Metabolic Panel 01/20/22 Range/Units 05:09 Sodium 142 (137-145) mmol/L Potassium 4.7 (3.6-5.0) mmol/L Chloride 102.7 (98-107) mmol/L Carbon Dioxide 22 (22-30) mmol/L BUN 27 H (7-17) mg/dL Creatinine 2.7 H (0.6-1.2) mg/dL Glucose 139 H (65-100) mg/dL Calcium 9.4 (8.4-10.2) mg/dL
--- NOTE | 2022-01-20 15:49 | Progress Note ---
Assessment and Plan 1. ESRD: Per patient she moved from [place] 3 days ago. Haven't started on any local outpatient dialysis clinic yet. Admitted with volume overload and metabolic acidosis. Hemodialysis: 01/19. 2. FEN: Metabolic acidosis, s/p HD, monitor. Volume control, UF with HD as tolerated. Monitor lytes and volume status. 3. Acute hypoxic resp failure, POA: 2/2 COPD exacerbation +/- volume overload. Supplemental O2 as needed. Nebs and steroids. Volume control with HD. Monitor. 4. Chest pain: Seen by Cardiology. 5. Acute on chronic diastolic CHF: Volume control thru HD. Fluid restriction, monitor I/O. Seen by Cardiology. 6. Acute exacerbation of COPD: Nebs and steroids. On RA at the time of eval. 7. Paroxysmal A.fib: Eliquis and Amio. Monitor. 8. Hypertensive urgency, POA: Volume control with HD. Continue home BP meds. Monitor BP. 9. Normocytic Anemia, POA: Chronic. 2/2 ESRD. Epogen with HD as needed. Monitor. 10. Acute metabolic Encephalopathy, POA: Improved. Subjective: Patient was seen and examined at the bedside. Examination: General appearance: well-developed, appears stated age, no distress, on RA HEENT: atraumatic, ANA Neck: trachea midline Respiratory: ctab Heart: S1S2, no murmur Abdomen: soft, bowel sounds heard, NT Integumentary: no obvious rash Neurologic: AO, able to move extremities Ext: no edema Hemodialysis access: R IJ tunnel catheter, R arm AVF/AVG Subjective Date of service: 01/20/22 Objective - Vital Signs Vital signs: Vital Signs - 12hr 01/20/22 01/20/22 01/20/22 04:27 07:10 08:08 Temperature 98.0 F 99.0 F Pulse Rate 79 74 76 Pulse Rate [ From Monitor] Respiratory 18 20 Rate Blood Pressure 173/86 Blood Pressure 143/70 [Left] O2 Sat by Pulse 98 99 Oximetry 01/20/22 01/20/22 11:15 12:10 Temperature 98.0 F Pulse Rate 70 Pulse Rate [ 74 From Monitor] Respiratory 18 18 Rate Blood Pressure 154/77 Blood Pressure [Left] O2 Sat by Pulse 99 100 Oximetry - Lab 01/20/22 05:09 01/20/22 05:09 Most recent lab results ABG pH 7.176 (7.320-7.450) L 01/19/22 09:13 ABG O2 Saturation 99.1 (0-100) 01/19/22 09:13 Calcium 9.4 mg/dL (8.4-10.2) 01/20/22 05:09 Magnesium 2.00 mg/dL (1.7-2.3) 01/19/22 07:26 Medications & Allergies - Medications Allergies/Adverse Reactions: Allergies apple Adverse Reaction (Verified 01/19/22 06:53) Hives shell fish Allergy (Uncoded 01/19/22 06:53) Swelling Home Medications: Home Medications Medication Instructions Recorded Confirmed Last Taken Type Quetiapine Fumarate [Seroquel] 100 mg PO BID 08/01/17 05/27/20 04/10/20 History Albuterol Mdi (or & Nicu Only) 2 puff IH QID PRN #1 inha 12/22/17 05/27/20 04/10/20 Rx [ProAir HFA Inhaler] Acetaminophen [Acetaminophen TAB] 650 mg PO Q4H PRN tablet 04/14/20 05/27/20 Unknown Rx Amiodarone [Cordarone 200 MG TAB] 200 mg PO QDAY #30 tablet 04/14/20 05/27/20 Unknown Rx Aspirin EC [Halfprin EC] 81 mg PO QDAY #30 tablet 04/14/20 05/27/20 Unknown Rx Amiodarone [Cordarone 200 MG TAB] 200 mg PO BID #60 tablet 05/29/20 Unknown Rx Apixaban [Eliquis] 5 mg PO BID 30 Days #60 tablet 05/29/20 Unknown Rx Metoprolol [Lopressor TAB] 50 mg PO BID #60 tablet 05/29/20 Unknown Rx amLODIPine 10 mg PO QDAY #30 tablet 05/29/20 Unknown Rx oxyCODONE /ACETAMINOPHEN [Percocet 1 tab PO Q6H PRN #20 tablet 05/29/20 Unknown Rx 5/325 mg] Active Medications: Generic Name Dose Route Start Last Admin Trade Name Freq PRN Reason Stop Dose Admin Acetaminophen 650 mg 01/19/22 09:10 Acetaminophen 325 Mg Tab PO Q4H PRN Pain MILD(1-3)/Fever >100.5/SILVA Albuterol 2.5 mg 01/19/22 09:10 Albuterol 2.5 Mg/3 Ml Nebu IH QID PRN Shortness Of Breath Amiodarone HCl 200 mg 01/19/22 10:00 01/20/22 09:07 Amiodarone 200 Mg Tab PO 200 mg BID CHRISTEL Administration Apixaban 5 mg 01/19/22 10:00 01/20/22 09:07 Apixaban 5 Mg Tab PO 5 mg BID CHRISTEL Administration Aspirin 81 mg 01/19/22 10:00 01/20/22 09:07 Aspirin Ec 81 Mg Tab PO 81 mg QDAY CHRISTEL Administration Docusate Sodium 100 mg 01/19/22 10:00 01/20/22 09:07 Docusate Sodium 100 Mg Cap PO 100 mg BID CHRISTEL Administration Famotidine 20 mg 01/19/22 10:00 01/20/22 09:07 Famotidine 20 Mg/2 Ml Inj IV 20 mg BID CHRISTEL Administration Furosemide 40 mg 01/19/22 18:00 01/20/22 05:53 Furosemide 40 Mg/4 Ml Inj IV 40 mg 0600,1800 CHRISTEL Administration Heparin Sodium (Porcine) 3,000 unit 01/19/22 10:51 Heparin 10,000 Units/10 Ml Vial IV KARLENE PRN hemodialysis Hydralazine HCl 25 mg 01/19/22 14:00 01/20/22 13:15 Hydralazine 25 Mg Tab PO 25 mg Q8HR CHRISTEL Administration Sodium Chloride 100 mls @ 999 mls/hr 01/19/22 10:51 Nacl 0.9% IV KARLENE PRN Hypotension Labetalol HCl 10 mg 01/19/22 10:11 Labetalol 20 Mg/4 Ml Inj IV Q4H PRN Hypertension Methylprednisolone Sodium Succinate 40 mg 01/19/22 14:00 01/20/22 13:15 Methylprednisolone Sod Succinate 40 Mg/1 Ml Inj IV 40 mg Q8HR CHRISTEL Administration Metoprolol Tartrate 50 mg 01/19/22 10:00 01/20/22 09:07 Metoprolol Tartrate 50 Mg Tab PO 50 mg BID CHRISTEL Administration Morphine Sulfate 2 mg 01/19/22 09:55 Morphine 4 Mg/1 Ml Inj IV Q4H PRN Pain , Severe (7-10) Nicotine 14 mg 01/20/22 12:00 01/20/22 11:54 Nicotine 14 Mg/24 Hr Patch TD 14 mg QDAY CHRISTEL Administration Ondansetron HCl 4 mg 01/19/22 09:55 Ondansetron 4 Mg/2 Ml Inj IV Q8H PRN Nausea And Vomiting Oxycodone/Acetaminophen 1 tab 01/19/22 09:10 Oxycodone /Acetaminophen 5-325mg Tab PO Q6H PRN Pain, Moderate (4-6) Quetiapine Fumarate 100 mg 01/19/22 10:00 01/20/22 09:07 Quetiapine 100 Mg Tab PO 100 mg BID CHRISTEL Administration Sodium Chloride 10 ml 01/19/22 10:00 01/20/22 09:07 Sodium Chloride 0.9% 10 Ml Flush Syringe IV 10 ml BID CHRISTEL Administration Sodium Chloride 10 ml 01/19/22 10:00 01/20/22 09:07 Sodium Chloride 0.9% 10 Ml Flush Syringe IV Not Given BID CHRISTEL Sodium Chloride 10 ml 01/19/22 09:55 Sodium Chloride 0.9% 10 Ml Flush Syringe IV PRN PRN LINE FLUSH
[2022-01-20] MEDS: oxyCODONE /ACETAMINOPHEN 5-325MG TAB PO PRN (17:28)
[2022-01-21] MEDS: FUROSEMIDE 40 MG/4 ML INJ IV SCH ×2 (05:40→19:10)
[2022-01-21] MEDS: hydrALAZINE 25 MG TAB PO SCH ×2 (05:40→21:59)
[2022-01-21] MEDS: methylPREDNISolone Sod Succinate 40 MG/1 ML INJ IV SCH ×2 (05:40→22:00)
[2022-01-21] MEDS: oxyCODONE /ACETAMINOPHEN 5-325MG TAB PO PRN (05:47)
[2022-01-21] MEDS ORDERED: REGADENOSON 0.4 MG/5 ML INJ IV ONE (06:59)
[2022-01-21] MEDS ORDERED: SODIUM CHLORIDE 0.9% 100 ML IV PRN (09:00)
--- NOTE | 2022-01-21 10:09 | Progress Note ---
Assessment and Plan 1. ESRD: Per patient she moved from [place] 3 days ago. Haven't started on any local outpatient dialysis clinic yet. Admitted with volume overload and metabolic acidosis. Hemodialysis: 01/19. HD today. 2. FEN: Metabolic acidosis, s/p HD, monitor. Volume control, UF with HD as tolerated. Monitor lytes and volume status. 3. Acute hypoxic resp failure, POA: 2/2 COPD exacerbation +/- volume overload. Supplemental O2 as needed. Nebs and steroids. Volume control with HD. Monitor. 4. Chest pain: Stress test today. 5. Acute on chronic diastolic CHF: Volume control thru HD. Fluid restriction, monitor I/O. Seen by Cardiology. 6. Acute exacerbation of COPD: Nebs and steroids. On RA at the time of eval. 7. Paroxysmal A.fib: Eliquis and Amio. Monitor. 8. Hypertensive urgency, POA: Volume control with HD. Continue home BP meds. Monitor BP. 9. Normocytic Anemia, POA: Chronic. 2/2 ESRD. Epogen with HD as needed. Monitor. 10. Acute metabolic Encephalopathy, POA: Improved. Subjective: Patient was seen and examined at the bedside. Examination: General appearance: well-developed, appears stated age, no distress, on RA HEENT: atraumatic, ANA Neck: trachea midline Respiratory: ctab Heart: S1S2, no murmur Abdomen: soft, bowel sounds heard, NT Integumentary: no obvious rash Neurologic: AO, able to move extremities Ext: no edema Hemodialysis access: R IJ tunnel catheter, R arm AVF/AVG Subjective Date of service: 01/21/22 Objective - Vital Signs Vital signs: Vital Signs - 12hr 01/20/22 01/20/22 01/20/22 22:10 22:34 23:19 Temperature 98.9 F Pulse Rate 70 Pulse Rate [ 73 From Monitor] Respiratory 17 18 Rate Respiratory Rate [Chest] Blood Pressure 133/91 160/81 Blood Pressure [Left] O2 Sat by Pulse 100 97 100 Oximetry 01/21/22 01/21/22 01/21/22 00:00 00:15 00:21 Temperature Pulse Rate 71 Pulse Rate [ From Monitor] Respiratory Rate Respiratory Rate [Chest] Blood Pressure 150/96 150/96 Blood Pressure [Left] O2 Sat by Pulse 98 96 Oximetry 03/01/21/22 01/21/22 00:31 00:41 00:51 Temperature Pulse Rate Pulse Rate [ From Monitor] Respiratory Rate Respiratory Rate [Chest] Blood Pressure 162/96 162/96 162/96 Blood Pressure [Left] O2 Sat by Pulse 96 97 98 Oximetry 01/21/22 01/21/22 01/21/22 01:01 01:11 01:21 Temperature Pulse Rate Pulse Rate [ From Monitor] Respiratory Rate Respiratory Rate [Chest] Blood Pressure 162/96 162/96 162/96 Blood Pressure [Left] O2 Sat by Pulse 97 98 98 Oximetry 01/21/22 01/21/22 01/21/22 01:31 01:41 01:51 Temperature Pulse Rate Pulse Rate [ From Monitor] Respiratory Rate Respiratory Rate [Chest] Blood Pressure 162/96 158/101 158/101 Blood Pressure [Left] O2 Sat by Pulse 98 97 94 Oximetry 01/21/22 01/21/22 01/21/22 02:01 02:10 02:20 Temperature Pulse Rate Pulse Rate [ From Monitor] Respiratory Rate Respiratory Rate [Chest] Blood Pressure 164/100 163/103 Blood Pressure [Left] O2 Sat by Pulse 94 95 93 Oximetry 01/21/22 01/21/22 01/21/22 02:25 02:43 02:50 Temperature Pulse Rate Pulse Rate [ From Monitor] Respiratory Rate Respiratory 17 Rate [Chest] Blood Pressure Blood Pressure [Left] O2 Sat by Pulse 95 96 Oximetry 01/21/22 01/21/22 01/21/22 03:00 03:10 03:20 Temperature Pulse Rate Pulse Rate [ From Monitor] Respiratory Rate Respiratory Rate [Chest] Blood Pressure Blood Pressure [Left] O2 Sat by Pulse 94 95 94 Oximetry 01/21/22 01/21/22 01/21/22 03:30 03:40 04:00 Temperature Pulse Rate 71 Pulse Rate [ From Monitor] Respiratory Rate Respiratory Rate [Chest] Blood Pressure Blood Pressure [Left] O2 Sat by Pulse 95 94 Oximetry 01/21/22 01/21/22 01/21/22 05:38 05:40 05:47 Temperature 98.4 F Pulse Rate 69 69 Pulse Rate [ From Monitor] Respiratory 17 17 Rate Respiratory Rate [Chest] Blood Pressure 149/77 Blood Pressure 149/77 [Left] O2 Sat by Pulse 98 Oximetry 01/21/22 06:47 Temperature Pulse Rate Pulse Rate [ From Monitor] Respiratory 17 Rate Respiratory Rate [Chest] Blood Pressure Blood Pressure [Left] O2 Sat by Pulse Oximetry - Lab 01/20/22 05:09 01/20/22 05:09 Most recent lab results ABG pH 7.176 (7.320-7.450) L 01/19/22 09:13 ABG O2 Saturation 99.1 (0-100) 01/19/22 09:13 Calcium 9.4 mg/dL (8.4-10.2) 01/20/22 05:09 Magnesium 2.00 mg/dL (1.7-2.3) 01/19/22 07:26 Medications & Allergies - Medications Allergies/Adverse Reactions: Allergies apple Adverse Reaction (Verified 01/19/22 06:53) Hives shell fish Allergy (Uncoded 01/19/22 06:53) Swelling Home Medications: Home Medications Medication Instructions Recorded Confirmed Last Taken Type Quetiapine Fumarate [Seroquel] 100 mg PO BID 08/01/17 05/27/20 04/10/20 History Albuterol Mdi (or & Nicu Only) 2 puff IH QID PRN #1 inha 12/22/17 05/27/20 04/10/20 Rx [ProAir HFA Inhaler] Acetaminophen [Acetaminophen TAB] 650 mg PO Q4H PRN tablet 04/14/20 05/27/20 Unknown Rx Amiodarone [Cordarone 200 MG TAB] 200 mg PO QDAY #30 tablet 04/14/20 05/27/20 Unknown Rx Aspirin EC [Halfprin EC] 81 mg PO QDAY #30 tablet 04/14/20 05/27/20 Unknown Rx Amiodarone [Cordarone 200 MG TAB] 200 mg PO BID #60 tablet 05/29/20 Unknown Rx Apixaban [Eliquis] 5 mg PO BID 30 Days #60 tablet 05/29/20 Unknown Rx Metoprolol [Lopressor TAB] 50 mg PO BID #60 tablet 05/29/20 Unknown Rx amLODIPine 10 mg PO QDAY #30 tablet 05/29/20 Unknown Rx oxyCODONE /ACETAMINOPHEN [Percocet 1 tab PO Q6H PRN #20 tablet 05/29/20 Unknown Rx 5/325 mg] Active Medications: Generic Name Dose Route Start Last Admin Trade Name Freq PRN Reason Stop Dose Admin Acetaminophen 650 mg 01/19/22 09:10 Acetaminophen 325 Mg Tab PO Q4H PRN Pain MILD(1-3)/Fever >100.5/SILVA Albuterol 2.5 mg 01/19/22 09:10 Albuterol 2.5 Mg/3 Ml Nebu IH QID PRN Shortness Of Breath Amiodarone HCl 200 mg 01/19/22 10:00 01/20/22 22:03 Amiodarone 200 Mg Tab PO 200 mg BID CHRISTEL Administration Apixaban 2.5 mg 01/21/22 10:00 Apixaban 2.5 Mg Tab PO BID CHRISTEL Aspirin 81 mg 01/19/22 10:00 01/20/22 09:07 Aspirin Ec 81 Mg Tab PO 81 mg QDAY CHRISTEL Administration Docusate Sodium 100 mg 01/19/22 10:00 01/20/22 22:03 Docusate Sodium 100 Mg Cap PO 100 mg BID CHRISTEL Administration Famotidine 20 mg 01/19/22 10:00 01/20/22 22:03 Famotidine 20 Mg/2 Ml Inj IV 20 mg BID CHRISTEL Administration Furosemide 40 mg 01/19/22 18:00 01/21/22 05:40 Furosemide 40 Mg/4 Ml Inj IV 40 mg 0600,1800 CHRISTEL Administration Heparin Sodium (Porcine) 3,000 unit 01/19/22 10:51 Heparin 10,000 Units/10 Ml Vial IV KARLENE PRN hemodialysis Hydralazine HCl 25 mg 01/19/22 14:00 01/21/22 05:40 Hydralazine 25 Mg Tab PO 25 mg Q8HR CHRISTEL Administration Sodium Chloride 100 mls @ 999 mls/hr 01/21/22 09:00 Nacl 0.9% IV KARLENE PRN Hypotension Labetalol HCl 10 mg 01/19/22 10:11 Labetalol 20 Mg/4 Ml Inj IV Q4H PRN Hypertension Methylprednisolone Sodium Succinate 40 mg 01/19/22 14:00 01/21/22 05:40 Methylprednisolone Sod Succinate 40 Mg/1 Ml Inj IV 40 mg Q8HR CHRISTEL Administration Metoprolol Tartrate 50 mg 01/19/22 10:00 01/20/22 22:04 Metoprolol Tartrate 50 Mg Tab PO 50 mg BID CHRISTEL Administration Morphine Sulfate 2 mg 01/19/22 09:55 Morphine 4 Mg/1 Ml Inj IV Q4H PRN Pain , Severe (7-10) Nicotine 14 mg 01/20/22 12:00 01/20/22 11:54 Nicotine 14 Mg/24 Hr Patch TD 14 mg QDAY CHRISTEL Administration Ondansetron HCl 4 mg 01/19/22 09:55 Ondansetron 4 Mg/2 Ml Inj IV Q8H PRN Nausea And Vomiting Oxycodone/Acetaminophen 1 tab 01/19/22 09:10 01/21/22 05:47 Oxycodone /Acetaminophen 5-325mg Tab PO 1 tab Q6H PRN Administration Pain, Moderate (4-6) Quetiapine Fumarate 100 mg 01/19/22 10:00 01/20/22 22:03 Quetiapine 100 Mg Tab PO 100 mg BID CHRISTEL Administration Sodium Chloride 10 ml 01/19/22 10:00 01/20/22 22:00 Sodium Chloride 0.9% 10 Ml Flush Syringe IV 10 ml BID CHRISTEL Administration Sodium Chloride 10 ml 01/19/22 10:00 01/21/22 05:01 Sodium Chloride 0.9% 10 Ml Flush Syringe IV 10 ml BID CHRISTEL Administration Sodium Chloride 10 ml 01/19/22 09:55 Sodium Chloride 0.9% 10 Ml Flush Syringe IV PRN PRN LINE FLUSH
--- NOTE | 2022-01-21 12:56 | Progress Note ---
Assessment and Plan - Patient Problems (1) CKD (chronic kidney disease) requiring chronic dialysis Current Visit: Yes Status: Acute (2) Acute chest pain Current Visit: No Status: Acute Subjective Date of service: 01/21/22 Interval history: CP THIS AM - NO ACUTE EKG CHANGE DURING CP Objective Vital Signs Temp Pulse Pulse Resp Resp BP BP 01/21/22 10:26 148/83 01/21/22 09:57 153/76 01/21/22 09:56 162/78 01/21/22 09:55 157/77 01/21/22 09:54 152/71 01/21/22 09:00 157/89 01/21/22 06:47 17 01/21/22 05:47 17 01/21/22 05:40 69 149/77 01/21/22 05:38 98.4 F 69 17 149/77 01/21/22 04:00 71 01/21/22 03:40 01/21/22 03:30 01/21/22 03:20 01/21/22 03:10 01/21/22 03:00 01/21/22 02:50 01/21/22 02:43 01/21/22 02:25 17 01/21/22 02:20 01/21/22 02:10 163/103 01/21/22 02:01 164/100 01/21/22 01:51 158/101 01/21/22 01:41 158/101 01/21/22 01:31 162/96 01/21/22 01:21 162/96 01/21/22 01:11 162/96 01/21/22 01:01 162/96 01/21/22 00:51 162/96 01/21/22 00:41 162/96 01/21/22 00:31 162/96 01/21/22 00:21 150/96 01/21/22 00:15 150/96 01/21/22 00:00 71 01/20/22 23:19 98.9 F 70 18 160/81 01/20/22 22:34 73 17 01/20/22 22:10 133/91 01/20/22 22:04 73 174/89 01/20/22 22:03 73 174/89 01/20/22 22:01 73 17 179/89 01/20/22 22:00 01/20/22 21:50 01/20/22 21:40 01/20/22 21:30 01/20/22 21:20 01/20/22 21:10 139/95 01/20/22 21:00 01/20/22 20:50 01/20/22 20:45 143/94 01/20/22 20:41 143/94 01/20/22 20:38 01/20/22 20:00 74 01/20/22 16:00 98.0 F 71 20 163/85 Pulse Ox 01/21/22 10:26 01/21/22 09:57 01/21/22 09:56 01/21/22 09:55 01/21/22 09:54 01/21/22 09:00 93 01/21/22 06:47 01/21/22 05:47 01/21/22 05:40 01/21/22 05:38 98 01/21/22 04:00 01/21/22 03:40 94 01/21/22 03:30 95 01/21/22 03:20 94 01/21/22 03:10 95 01/21/22 03:00 94 01/21/22 02:50 96 01/21/22 02:43 95 01/21/22 02:25 01/21/22 02:20 93 01/21/22 02:10 95 01/21/22 02:01 94 01/21/22 01:51 94 01/21/22 01:41 97 01/21/22 01:31 98 01/21/22 01:21 98 01/21/22 01:11 98 01/21/22 01:01 97 01/21/22 00:51 98 01/21/22 00:41 97 01/21/22 00:31 96 01/21/22 00:21 96 01/21/22 00:15 98 01/21/22 00:00 01/20/22 23:19 100 01/20/22 22:34 97 01/20/22 22:10 100 01/20/22 22:04 01/20/22 22:03 01/20/22 22:01 98 01/20/22 22:00 100 01/20/22 21:50 100 01/20/22 21:40 100 01/20/22 21:30 100 01/20/22 21:20 100 01/20/22 21:10 80 L 01/20/22 21:00 100 01/20/22 20:50 100 01/20/22 20:45 100 01/20/22 20:41 100 01/20/22 20:38 100 01/20/22 20:00 01/20/22 16:00 99 - Physical Examination General: No Apparent Distress HEENT: Positive: PERRL Neck: Positive: neck supple, JVD/HJR Cardiac: Positive: Regular Rate Lungs: Positive: clear to auscultation Abdomen: Positive: Unremarkable Extremities: Present: normal
--- NOTE | 2022-01-21 18:41 | Progress Note ---
Assessment and Plan Assessment and plan: Baez PCR test is negative --Acute hypoxic respiratory failure; requiring BiPAP Symptoms significantly improved, on room air today Multifactorial , missed hemodialysis and fluid overload secondary to acute exacerbation of COPD Nebulizers, oxygen titrate O2 sats to more than 90%, BiPAP as needed Home O2 evaluation prior to discharge --Noncompliant with hemodialysis/fluid overload Nephrology consulted, stat hemodialysis HD per schedule, avoid nephrotoxins, renal dosing medications --ESRD; on hemodialysis TTS HD per schedule, avoid nephrotoxin, renal dosing of medications --Hypertensive urgency; Resume home antihypertensives As needed labetalol Closely monitor blood pressures and adjust as needed --Paroxysmal atrial fibrillation Beta-blockers, amiodarone and Eliquis --Chest pain/acute coronary syndrome Serial cardiac enzymes, Cardiac medications Echocardiogram for LV function ejection fraction Heart cath 07/2017; widely patent proximal to mid and mid to distal LAD stents no significant in-stent restenosis EF 50 to 55% Thallium stress test/12/2017; normal study EF 61% echo 04/2020; EF 50 to 55% Cardiology following --Acute on chronic diastolic CHF (congestive heart failure) IV diuretics, input output monitoring, fluid restriction Cardiology evaluation, echocardiogram for LV function ejection fraction --Acute exacerbation of COPD (chronic obstructive pulmonary disease) Oxygen titrate O2 sats to more than 90% BiPAP as needed, nebulizers, IV steroids Pulmonary consult if needed --Noncompliance; Counseling done patient strongly advised to comply with medications, diet, follow-up visits Mainly hemodialysis Patient verbalized understanding - DVT prophylaxis Patient is on Eliquis We will closely monitor the patient and adjust management as needed Plan of care reviewed with the patient and her nurse 01/20/2022; patient feels slightly better continue current database management system specialist recommendations noted and appreciated 01/21; patient received hemodialysis today, home O2 evaluation prior to discharge DC planning per case management, discharge when stable History Interval history: I have seen and examined the patient at the bedside Patient's chart and medications reviewed Patient is scheduled for stress test today Vital signs noted Patient complains of generalized weakness Hospitalist Physical - Constitutional Vitals: Temp Pulse Resp BP Pulse Ox 99 F 113 H 18 160/96 97 01/21/22 16:00 01/21/22 16:00 01/21/22 16:00 01/21/22 16:00 01/21/22 14:15 General appearance: Present: no acute distress, cachectic, disheveled, other (On BiPAP) - EENT Eyes: Present: PERRL, EOM intact - Neck Neck: Present: supple, normal ROM - Respiratory Respiratory effort: normal Respiratory: bilateral: diminished, negative: rales, rhonchi, wheezing - Cardiovascular Rhythm: regular Heart Sounds: Present: S1 & S2 - Extremities Extremities: no ischemia, No edema - Abdominal General gastrointestinal: soft, non-tender, non-distended, normal bowel sounds - Integumentary Integumentary: Present: clear, warm - Psychiatric Psychiatric: appropriate mood/affect, cooperative - Neurologic Neurologic: CNII-XII intact, moves all extremities HEART Score - HEART Score Troponin: Troponin T < 0.010 ng/mL (0.00-0.029) 01/19/22 07:26 Results - Labs CBC & Chem 7: 01/20/22 05:09 01/20/22 05:09 Labs: Laboratory Last Values WBC 5.5 K/mm3 (4.5-11.0) 01/20/22 05:09 RBC 3.57 M/mm3 (3.65-5.03) L 01/20/22 05:09 Hgb 10.8 gm/dl (10.1-14.3) 01/20/22 05:09 Hct 34.3 % (30.3-42.9) 01/20/22 05:09 MCV 96 fl (79-97) 01/20/22 05:09 MCH 30 pg (28-32) 01/20/22 05:09 MCHC 31 % (30-34) 01/20/22 05:09 RDW 17.3 % (13.2-15.2) H 01/20/22 05:09 Plt Count 175 K/mm3 (140-440) 01/20/22 05:09 Lymph % (Auto) 8.3 % (13.4-35.0) L 01/20/22 05:09 Cache % (Auto) 1.4 % (0.0-7.3) 01/20/22 05:09 Eos % (Auto) 0.2 % (0.0-4.3) 01/20/22 05:09 Baso % (Auto) 0.6 % (0.0-1.8) 01/20/22 05:09 Lymph # (Auto) 0.5 K/mm3 (1.2-5.4) L 01/20/22 05:09 Cache # (Auto) 0.1 K/mm3 (0.0-0.8) 01/20/22 05:09 Eos # (Auto) 0.0 K/mm3 (0.0-0.4) 01/20/22 05:09 Baso # (Auto) 0.0 K/mm3 (0.0-0.1) 01/20/22 05:09 Seg Neutrophils % 89.5 % (40.0-70.0) H 01/20/22 05:09 Seg Neutrophils # 4.9 K/mm3 (1.8-7.7) 01/20/22 05:09 ABG pH 7.176 (7.320-7.450) L 01/19/22 09:13 POC ABG pCO2 46.0 mmHg (32.0-48.0) 01/19/22 09:13 POC ABG pO2 168.7 mmHg (83-108) H 01/19/22 09:13 POC ABG HCO3 16.6 01/19/22 09:13 ABG O2 Saturation 99.1 (0-100) 01/19/22 09:13 POC ABG Base Excess -11.4 01/19/22 09:13 ABG Hemoglobin 11.0 (12.0-17.5) L 01/19/22 09:13 ABG Oxyhemoglobin 98.1 (94-98) H 01/19/22 09:13 ABG Methemoglobin 0.3 (0.0-1.5) 01/19/22 09:13 ABG Sodium Not Reportable 01/19/22 09:13 ABG Potassium Not Reportable 01/19/22 09:13 ABG Chloride Not Reportable 01/19/22 09:13 ABG Glucose Not Reportable 01/19/22 09:13 Carboxyhemoglobin 0.7 (0.5-1.5) 01/19/22 09:13 FiO2 % 45.0 01/19/22 09:13 Sodium 142 mmol/L (137-145) 01/20/22 05:09 Potassium 4.7 mmol/L (3.6-5.0) 01/20/22 05:09 Chloride 102.7 mmol/L (98-107) 01/20/22 05:09 Carbon Dioxide 22 mmol/L (22-30) 01/20/22 05:09 Anion Gap 22 mmol/L 01/20/22 05:09 BUN 27 mg/dL (7-17) H 01/20/22 05:09 Creatinine 2.7 mg/dL (0.6-1.2) H 01/20/22 05:09 Estimated GFR 21 ml/min 01/20/22 05:09 BUN/Creatinine Ratio 10 % 01/20/22 05:09 Glucose 139 mg/dL (65-100) H 01/20/22 05:09 Calcium 9.4 mg/dL (8.4-10.2) 01/20/22 05:09 Magnesium 2.00 mg/dL (1.7-2.3) 01/19/22 07:26 Troponin T < 0.010 ng/mL (0.00-0.029) 01/19/22 07:26 NT-Pro-B Natriuret Pep 96979 pg/mL (0-900) H 01/19/22 07:26 Arterial Blood Glucose Not Reportable 01/19/22 09:13 Coronavirus (PCR) Negative (Negative) 01/20/22 09:45 Hepatitis A IgM Ab Non-reactive (NonReactive) 01/19/22 11:38 Hep Bs Antigen Non-reactive (Negative) 01/19/22 11:38 Hep B Core IgM Ab Non-reactive (NonReactive) 01/19/22 11:38 Hepatitis C Antibody Non-reactive (NonReactive) 01/19/22 11:38 [place]/IV: Voiding Method Toilet Active Medications - Current Medications Current Medications: Generic Name Dose Route Start Last Admin Trade Name Freq PRN Reason Stop Dose Admin Acetaminophen 650 mg 01/19/22 09:10 Acetaminophen 325 Mg Tab PO Q4H PRN Pain MILD(1-3)/Fever >100.5/SILVA Albuterol 2.5 mg 01/19/22 09:10 Albuterol 2.5 Mg/3 Ml Nebu IH QID PRN Shortness Of Breath Amiodarone HCl 200 mg 01/19/22 10:00 01/20/22 22:03 Amiodarone 200 Mg Tab PO 200 mg BID CHRISTEL Administration Apixaban 2.5 mg 01/21/22 10:00 Apixaban 2.5 Mg Tab PO BID CHRISTEL Aspirin 81 mg 01/19/22 10:00 01/20/22 09:07 Aspirin Ec 81 Mg Tab PO 81 mg QDAY CHRISTEL Administration Docusate Sodium 100 mg 01/19/22 10:00 01/20/22 22:03 Docusate Sodium 100 Mg Cap PO 100 mg BID CHRISTEL Administration Famotidine 20 mg 01/19/22 10:00 01/20/22 22:03 Famotidine 20 Mg/2 Ml Inj IV 20 mg BID CHRISTEL Administration Furosemide 40 mg 01/19/22 18:00 01/21/22 05:40 Furosemide 40 Mg/4 Ml Inj IV 40 mg 0600,1800 CHRISTEL Administration Heparin Sodium (Porcine) 3,000 unit 01/19/22 10:51 01/21/22 12:36 Heparin 10,000 Units/10 Ml Vial IV 3,000 unit KARLENE PRN Administration hemodialysis Hydralazine HCl 25 mg 01/19/22 14:00 01/21/22 05:40 Hydralazine 25 Mg Tab PO 25 mg Q8HR CHRISTEL Administration Sodium Chloride 100 mls @ 999 mls/hr 01/21/22 09:00 Nacl 0.9% IV KARLENE PRN Hypotension Labetalol HCl 10 mg 01/19/22 10:11 Labetalol 20 Mg/4 Ml Inj IV Q4H PRN Hypertension Methylprednisolone Sodium Succinate 40 mg 01/19/22 14:00 01/21/22 05:40 Methylprednisolone Sod Succinate 40 Mg/1 Ml Inj IV 40 mg Q8HR CHRISTEL Administration Metoprolol Tartrate 50 mg 01/19/22 10:00 01/20/22 22:04 Metoprolol Tartrate 50 Mg Tab PO 50 mg BID CHRISTEL Administration Morphine Sulfate 2 mg 01/19/22 09:55 01/21/22 15:45 Morphine 4 Mg/1 Ml Inj IV 2 mg Q4H PRN Administration Pain , Severe (7-10) Nicotine 14 mg 01/20/22 12:00 01/20/22 11:54 Nicotine 14 Mg/24 Hr Patch TD 14 mg QDAY CHRISTEL Administration Ondansetron HCl 4 mg 01/19/22 09:55 Ondansetron 4 Mg/2 Ml Inj IV Q8H PRN Nausea And Vomiting Oxycodone/Acetaminophen 1 tab 01/19/22 09:10 01/21/22 05:47 Oxycodone /Acetaminophen 5-325mg Tab PO 1 tab Q6H PRN Administration Pain, Moderate (4-6) Quetiapine Fumarate 100 mg 01/19/22 10:00 01/20/22 22:03 Quetiapine 100 Mg Tab PO 100 mg BID CHRISTEL Administration Sodium Chloride 10 ml 01/19/22 10:00 01/20/22 22:00 Sodium Chloride 0.9% 10 Ml Flush Syringe IV 10 ml BID CHRISTEL Administration Sodium Chloride 10 ml 01/19/22 10:00 01/21/22 05:01 Sodium Chloride 0.9% 10 Ml Flush Syringe IV 10 ml BID CHRISTEL Administration Sodium Chloride 10 ml 01/19/22 09:55 Sodium Chloride 0.9% 10 Ml Flush Syringe IV PRN PRN LINE FLUSH
[2022-01-21] MEDS: NICOTINE 14 MG/24 HR PATCH TD SCH (19:14)
[2022-01-21] MEDS: DOCUSATE SODIUM 100 MG CAP PO SCH (21:58)
[2022-01-21] MEDS: METOPROLOL TARTRATE 50 MG TAB PO SCH (21:59)
[2022-01-21] MEDS: AMIODARONE 200 MG TAB PO SCH (21:59)
[2022-01-21] MEDS: FAMOTIDINE 20 MG/2 ML INJ IV SCH (22:00)
[2022-01-21] MEDS: QUEtiapine 100 MG TAB PO SCH (22:00)
[2022-01-21] MEDS: APIXABAN 2.5 MG TAB PO SCH (22:00)
[2022-01-22] MEDS: hydrALAZINE 25 MG TAB PO SCH (06:19)
[2022-01-22] MEDS: methylPREDNISolone Sod Succinate 40 MG/1 ML INJ IV SCH (06:20)
[2022-01-22] MEDS: FUROSEMIDE 40 MG/4 ML INJ IV SCH (06:20)
--- NOTE | 2022-01-22 08:43 | Progress Note ---
Assessment and Plan 1. ESRD: Per patient she moved from [place] 3 days ago. Haven't started on any local outpatient dialysis clinic yet. Admitted with volume overload and metabolic acidosis. Hemodialysis: 01/19, 01/21. 2. FEN: Metabolic acidosis, s/p HD, monitor. Volume control, UF with HD as tolerated. Monitor lytes and volume status. 3. Acute hypoxic resp failure, POA: 2/2 COPD exacerbation +/- volume overload. Supplemental O2 as needed. Nebs and steroids. Volume control with HD. Monitor. 4. Chest pain: S/p stress test 01/21. 5. Acute on chronic diastolic CHF: Volume control thru HD. Fluid restriction, monitor I/O. Seen by Cardiology. 6. Acute exacerbation of COPD: Nebs and steroids. On RA at the time of eval. 7. Paroxysmal A.fib: Eliquis and Amio. Monitor. 8. Hypertensive urgency, POA: Volume control with HD. Continue home BP meds. Monitor BP. 9. Normocytic Anemia, POA: Chronic. 2/2 ESRD. Epogen with HD as needed. Monitor. 10. Acute metabolic Encephalopathy, POA: Improved. Subjective: Patient was seen and examined at the bedside. Examination: General appearance: well-developed, appears stated age, no distress, on RA HEENT: atraumatic, ANA Neck: trachea midline Respiratory: ctab Heart: S1S2, no murmur Abdomen: soft, bowel sounds heard, NT Integumentary: no obvious rash Neurologic: AO, able to move extremities Ext: no edema Hemodialysis access: R IJ tunnel catheter, R arm AVF/AVG Subjective Date of service: 01/22/22 Objective - Vital Signs Vital signs: Vital Signs - 12hr 01/21/22 01/21/22 01/22/22 21:59 23:02 00:00 Temperature 98.4 F Pulse Rate 71 114 H Pulse Rate [ 114 H From Monitor] Respiratory 16 18 Rate Blood Pressure 159/73 147/83 O2 Sat by Pulse 98 97 Oximetry 01/22/22 01/22/22 01/22/22 03:30 04:00 06:19 Temperature 97.8 F Pulse Rate 70 114 H 114 H Pulse Rate [ From Monitor] Respiratory 16 Rate Blood Pressure 158/77 158/77 O2 Sat by Pulse 99 Oximetry - Lab 01/20/22 05:09 01/20/22 05:09 Most recent lab results ABG pH 7.176 (7.320-7.450) L 01/19/22 09:13 ABG O2 Saturation 99.1 (0-100) 01/19/22 09:13 Calcium 9.4 mg/dL (8.4-10.2) 01/20/22 05:09 Magnesium 2.00 mg/dL (1.7-2.3) 01/19/22 07:26 Medications & Allergies - Medications Allergies/Adverse Reactions: Allergies apple Adverse Reaction (Verified 01/22/22 10:35) Hives yellow and green apples. can eat red. shell fish Allergy (Uncoded 01/22/22 10:35) Swelling allergic to seafood except blue crab Home Medications: Home Medications Medication Instructions Recorded Confirmed Last Taken Type Quetiapine Fumarate [Seroquel] 100 mg PO BID 08/01/17 05/27/20 04/10/20 History Albuterol Mdi (or & Nicu Only) 2 puff IH QID PRN #1 inha 12/22/17 05/27/20 04/10/20 Rx [ProAir HFA Inhaler] Metoprolol [Lopressor TAB] 50 mg PO BID #60 tablet 05/29/20 Unknown Rx amLODIPine 10 mg PO QDAY #30 tablet 05/29/20 Unknown Rx oxyCODONE /ACETAMINOPHEN [Percocet 1 tab PO Q6H PRN #20 tablet 05/29/20 Unknown Rx 5/325 mg] Amiodarone [Cordarone 200 MG TAB] 200 mg PO BID #60 tablet 01/22/22 Unknown Rx Apixaban [Eliquis] 5 mg PO BID 30 Days #60 tablet 01/22/22 Unknown Rx Aspirin EC [Halfprin EC] 81 mg PO QDAY #30 tablet 01/22/22 Unknown Rx hydrALAZINE [Apresoline TAB] 25 mg PO Q8HR #90 tablet 01/22/22 Unknown Rx predniSONE 10 mg PO QDAY #20 tab 01/22/22 Unknown Rx Active Medications: Generic Name Dose Route Start Last Admin Trade Name Freq PRN Reason Stop Dose Admin Acetaminophen 650 mg 01/19/22 09:10 Acetaminophen 325 Mg Tab PO Q4H PRN Pain MILD(1-3)/Fever >100.5/SILVA Albuterol 2.5 mg 01/19/22 09:10 Albuterol 2.5 Mg/3 Ml Nebu IH QID PRN Shortness Of Breath Amiodarone HCl 200 mg 01/19/22 10:00 01/21/22 21:59 Amiodarone 200 Mg Tab PO 200 mg BID CHRISTEL Administration Apixaban 2.5 mg 01/21/22 10:00 01/21/22 22:00 Apixaban 2.5 Mg Tab PO 2.5 mg BID CHRISTEL Administration Aspirin 81 mg 01/19/22 10:00 01/20/22 09:07 Aspirin Ec 81 Mg Tab PO 81 mg QDAY CHRISTEL Administration Docusate Sodium 100 mg 01/19/22 10:00 01/21/22 21:58 Docusate Sodium 100 Mg Cap PO 100 mg BID CHRISTEL Administration Famotidine 10 mg 01/22/22 10:00 Famotidine 10 Mg Tab PO BID CHRISTEL Furosemide 40 mg 01/19/22 18:00 01/22/22 06:20 Furosemide 40 Mg/4 Ml Inj IV 40 mg 0600,1800 CHRISTEL Administration Heparin Sodium (Porcine) 3,000 unit 01/19/22 10:51 01/21/22 12:36 Heparin 10,000 Units/10 Ml Vial IV 3,000 unit KARLENE PRN Administration hemodialysis Hydralazine HCl 50 mg 01/21/22 18:47 01/22/22 06:19 Hydralazine 25 Mg Tab PO 50 mg Q8HR CHRISTEL Administration Sodium Chloride 100 mls @ 999 mls/hr 01/21/22 09:00 Nacl 0.9% IV KARLENE PRN Hypotension Labetalol HCl 10 mg 01/19/22 10:11 Labetalol 20 Mg/4 Ml Inj IV Q4H PRN Hypertension Methylprednisolone Sodium Succinate 40 mg 01/19/22 14:00 01/22/22 06:20 Methylprednisolone Sod Succinate 40 Mg/1 Ml Inj IV 40 mg Q8HR CHRISTEL Administration Metoprolol Tartrate 50 mg 01/21/22 20:00 01/21/22 21:59 Metoprolol Tartrate 50 Mg Tab PO 50 mg TID CHRISTEL Administration Morphine Sulfate 2 mg 01/19/22 09:55 01/21/22 15:45 Morphine 4 Mg/1 Ml Inj IV 2 mg Q4H PRN Administration Pain , Severe (7-10) Nicotine 14 mg 01/20/22 12:00 01/21/22 19:14 Nicotine 14 Mg/24 Hr Patch TD 14 mg QDAY CHRISTEL Administration Ondansetron HCl 4 mg 01/19/22 09:55 Ondansetron 4 Mg/2 Ml Inj IV Q8H PRN Nausea And Vomiting Oxycodone/Acetaminophen 1 tab 01/19/22 09:10 01/21/22 05:47 Oxycodone /Acetaminophen 5-325mg Tab PO 1 tab Q6H PRN Administration Pain, Moderate (4-6) Quetiapine Fumarate 100 mg 01/19/22 10:00 01/21/22 22:00 Quetiapine 100 Mg Tab PO 100 mg BID CHRISTLE Administration Sodium Chloride 10 ml 01/19/22 10:00 01/21/22 05:01 Sodium Chloride 0.9% 10 Ml Flush Syringe IV 10 ml BID CHRISTEL Administration Sodium Chloride 10 ml 01/19/22 09:55 Sodium Chloride 0.9% 10 Ml Flush Syringe IV PRN PRN LINE FLUSH
[2022-01-22] MEDS: METOPROLOL TARTRATE 50 MG TAB PO SCH (09:49)
[2022-01-22] MEDS ORDERED: methylPREDNISolone Sod Succinate 40 MG/1 ML INJ IV SCH (10:00)
[2022-01-22] MEDS ORDERED: FAMOTIDINE 10 MG TAB PO SCH (10:00)
[2022-01-22 12:15] VITALS: BP 161/79
[2022-01-22] MEDS: AMIODARONE 200 MG TAB PO SCH (12:23)
[2022-01-22] MEDS: oxyCODONE /ACETAMINOPHEN 5-325MG TAB PO PRN (12:24)
[2022-01-22] MEDS: ASPIRIN EC 81 MG TAB PO SCH (12:24)
[2022-01-22] MEDS: DOCUSATE SODIUM 100 MG CAP PO SCH (12:24)
[2022-01-22] MEDS: QUEtiapine 100 MG TAB PO SCH (12:24)
[2022-01-22] MEDS: NICOTINE 14 MG/24 HR PATCH TD SCH (12:24)
[2022-01-22] MEDS: APIXABAN 2.5 MG TAB PO SCH (12:48)
--- NOTE | 2022-01-22 12:58 | Progress Note ---
Assessment and Plan - Patient Problems (1) CKD (chronic kidney disease) requiring chronic dialysis Current Visit: Yes Status: Acute (2) Acute chest pain Current Visit: No Status: Acute Subjective Date of service: 01/22/22 Interval history: NO C/O Objective Vital Signs Temp Pulse Pulse Resp BP BP Pulse Ox 01/22/22 12:08 99.3 F 18 161/79 01/22/22 09:36 99 01/22/22 08:32 99.1 F 70 16 164/83 99 01/22/22 06:19 114 H 158/77 01/22/22 04:00 114 H 01/22/22 03:30 97.8 F 70 16 158/77 99 01/22/22 00:00 114 H 18 97 01/21/22 23:02 98.4 F 114 H 16 147/83 98 01/21/22 21:59 71 159/73 01/21/22 19:34 99 01/21/22 19:18 98.9 F 71 16 159/73 100 01/21/22 16:00 99 F 113 H 18 160/96 01/21/22 14:15 98.2 F 107 H 18 160/90 01/21/22 14:00 109 H 160/96 01/21/22 13:45 122 H 179/96 01/21/22 13:30 116 H 160/79 01/21/22 13:15 116 H 165/95 01/21/22 13:00 112 H 163/96 Pulse Ox 01/22/22 12:08 01/22/22 09:36 01/22/22 08:32 01/22/22 06:19 01/22/22 04:00 01/22/22 03:30 01/22/22 00:00 01/21/22 23:02 01/21/22 21:59 01/21/22 19:34 01/21/22 19:18 01/21/22 16:00 01/21/22 14:15 97 01/21/22 14:00 01/21/22 13:45 01/21/22 13:30 01/21/22 13:15 01/21/22 13:00 - Physical Examination General: No Apparent Distress HEENT: Positive: PERRL Neck: Positive: neck supple, JVD/HJR Cardiac: Positive: Reg Rate and Rhythm Lungs: Positive: clear to auscultation, Decreased Breath Sounds Abdomen: Positive: Unremarkable Extremities: Present: normal
--- NOTE | 2022-01-22 14:47 | Discharge Summary ---
Providers - Providers Date of Admission: 01/19/22 09:55 Date of discharge: 01/22/22 Attending physician: DOMI CASTLE 01/19/22 10:37 Consult to Physician [CONS] Urgent Comment: Consulting Provider: SEBAS DELGADO Physician Instructions: Reason For Exam: Respiratory failure/fluid overload/missed dialysis 01/19/22 10:39 Consult to Physician [CONS] Routine Comment: Consulting Provider: MELY DANIEL Physician Instructions: Reason For Exam: Paroxysmal A. fib/acute on chronic diastolic CHF 01/20/22 16:06 Physical Therapy Evaluation and Treat [CONS] Routine Comment: unstable gait, fall risk Reason For Exam: Eval & Treat [facility] Condition: Stable Pertinent studies: Chest x-ray; mild edema Procedures: Negative stress test Hospital course: --Acute hypoxic respiratory failure; requiring BiPAP Symptoms significantly improved, on room air today Multifactorial , missed hemodialysis and fluid overload secondary to acute exacerbation of COPD Nebulizers, oxygen titrate O2 sats to more than 90%, BiPAP as needed Home O2 evaluation prior to discharge --Noncompliant with hemodialysis/fluid overload Nephrology consulted, stat hemodialysis HD per schedule, avoid nephrotoxins, renal dosing medications --ESRD; on hemodialysis TTS HD per schedule, avoid nephrotoxin, renal dosing of medications --Hypertensive urgency; Resume home antihypertensives As needed labetalol Closely monitor blood pressures and adjust as needed --Paroxysmal atrial fibrillation Beta-blockers, amiodarone and Eliquis --Chest pain/acute coronary syndrome Serial cardiac enzymes, Cardiac medications Echocardiogram for LV function ejection fraction Heart cath 07/2017; widely patent proximal to mid and mid to distal LAD stents no significant in-stent restenosis EF 50 to 55% Thallium stress test/12/2017; normal study EF 61% echo 04/2020; EF 50 to 55% Cardiology following --Acute on chronic diastolic CHF (congestive heart failure) IV diuretics, input output monitoring, fluid restriction Cardiology evaluation, echocardiogram for LV function ejection fraction --Acute exacerbation of COPD (chronic obstructive pulmonary disease) Oxygen titrate O2 sats to more than 90% BiPAP as needed, nebulizers, IV steroids Pulmonary consult if needed --Noncompliance; Counseling done patient strongly advised to comply with medications, diet, follow-up visits Mainly hemodialysis Patient verbalized understanding - DVT prophylaxis Patient is on Eliquis We will closely monitor the patient and adjust management as needed Plan of care reviewed with the patient and her nurse 01/20/2022; patient feels slightly better continue current quality management nurse recommendations noted and appreciated 01/21; patient received hemodialysis today, home O2 evaluation prior to discharge DC planning per case management, discharge when stable Dictation box Disposition: HOME / SELF CARE / HOMELESS Final Discharge Diagnosis (Prints w/discharge instructions): Acute hypoxic respiratory failure requiring BiPAP. Currently on room air. Noncompliant with hemodialysis. ESRD on HD TTS. Hypertensive urgency/blood pressures well controlled now. Paroxysmal atrial fibrillation. Atypical chest pain. Acute on chronic diastolic CHF. Acute exacerbation of COPD. Medical noncompliance Time spent for discharge: 40 min Core Measure Documentation - Palliative Care Palliative Care/ Comfort Measures: Not Applicable - Core Measures Any of the following diagnoses?: none Exam - Constitutional Vitals: Temp Pulse Resp BP Pulse Ox 99.3 F 70 18 161/79 99 01/22/22 12:08 01/22/22 08:32 01/22/22 12:08 01/22/22 12:08 01/22/22 09:36 General appearance: Present: no acute distress, well-nourished - EENT Eyes: Present: PERRL, EOM intact - Neck Neck: Present: supple, normal ROM - Respiratory Respiratory effort: normal Respiratory: bilateral: diminished, negative: rales, rhonchi, wheezing - Cardiovascular Rhythm: regular Heart Sounds: Present: S1 & S2 - Extremities Extremities: no ischemia, No edema - Abdominal General gastrointestinal: Present: soft, non-tender, non-distended, normal bowel sounds - Integumentary Integumentary: Present: clear, warm - Musculoskeletal Musculoskeletal: strength equal bilaterally - Psychiatric Psychiatric: appropriate mood/affect, cooperative - Neurologic Neurologic: CNII-XII intact, moves all extremities Plan Activity: advance as tolerated, fall precautions Diet: renal (Diet), other (Cardiac diet) Additional Instructions: Follow renal, hemodialysis per schedule. If you have worsening symptoms contact MD or go to the nearest emergency room as needed. Advised to comply with medications, diet, follow-up visits and hemodialysis per schedule Follow up with: RADHA KEATING MD [Primary Care Provider] - 3-5 Days SEBAS DELGADO MD [Staff Physician] - 7 Days DOROTEO GARVIN MD [Staff Physician] - 7 Days Forms: AMA Form Prescriptions: hydrALAZINE [Apresoline TAB] 25 mg PO Q8HR #90 tablet Amiodarone [Cordarone 200 MG TAB] 200 mg PO BID #60 tablet Apixaban [Eliquis] 5 mg PO BID 30 Days #60 tablet Aspirin EC [Halfprin EC] 81 mg PO QDAY #30 tablet predniSONE 10 mg PO QDAY #20 tab
== END 2022-01-22 14:30 | disposition home health service (06) | DRG 291 ==
LOC: ED 06:45 → 4A 09:55
PROVIDERS: ADMIT Internal Medicine; ATTEND Internal Medicine
PROC: 5A1D70Z Performance of Urinary Filtration, Intermittent, Less than 6 Hours Per Day (ICD-10-PCS; principal; 2022-01-19)
PROC: 4A033R1 Measurement of Arterial Saturation, Peripheral, Percutaneous Approach (ICD-10-PCS; 2022-01-19)
PROC: 5A09357 Assistance with Respiratory Ventilation, Less than 24 Consecutive Hours, Continuous Positive Airway Pressure (ICD-10-PCS; 2022-01-19)
PROC: 5A1D70Z Performance of Urinary Filtration, Intermittent, Less than 6 Hours Per Day (ICD-10-PCS; 2022-01-21)
PROC: 5A09457 Assistance with Respiratory Ventilation, 24-96 Consecutive Hours, Continuous Positive Airway Pressure (ICD-10-PCS; 2022-01-21)
DX: I13.2 Hypertensive heart and chronic kidney disease with heart failure and with stage 5 chronic kidney disease, or end stage renal disease (principal); N18.6 End stage renal disease; I50.33 Acute on chronic diastolic (congestive) heart failure; J96.01 Acute respiratory failure with hypoxia; G93.41 Metabolic encephalopathy; J44.1 Chronic obstructive pulmonary disease with (acute) exacerbation; E87.4 Mixed disorder of acid-base balance; I69.351 Hemiplegia and hemiparesis following cerebral infarction affecting right dominant side; E87.2 Acidosis; I48.91 Unspecified atrial fibrillation; E11.22 Type 2 diabetes mellitus with diabetic chronic kidney disease; Z99.2 Dependence on renal dialysis; Z91.15 Patient's noncompliance with renal dialysis; Z20.822 Contact with and (suspected) exposure to COVID-19; I16.0 Hypertensive urgency; I48.0 Paroxysmal atrial fibrillation; Z91.14 Patient's other noncompliance with medication regimen; D63.1 Anemia in chronic kidney disease; E78.5 Hyperlipidemia, unspecified; F20.9 Schizophrenia, unspecified; F31.9 Bipolar disorder, unspecified; I25.2 Old myocardial infarction; E78.00 Pure hypercholesterolemia, unspecified; I25.10 Atherosclerotic heart disease of native coronary artery without angina pectoris; R07.89 Other chest pain; Z91.013 Allergy to seafood; Z91.018 Allergy to other foods; Z82.49 Family history of ischemic heart disease and other diseases of the circulatory system
CPT/HCPCS: 36415; 71045; 71046; 78452; 80048; 80053; 80074; 82805; 83690; 83735; 83880; 84484; 85025; 85610; 93005; 93017; 96374; 99284; G0378; J3490; J9280; A9502; J1644; J1940; J2060; J2270; J2785; J2920; J7040; U0003

== ENCOUNTER 2022-01-26 11:31 | Inpatient (IN) | payer MEDICARE ==
[2022-01-26 12:06] LABS: Basophils # (Auto) 0.2 K/mm3 (0.0-0.1); Basophils % (Auto) 1.9 % (0.0-1.8); Eosinophils # (Auto) 0.5 K/mm3 (0.0-0.4); Eosinophils % (Auto) 6.3 % (0.0-4.3); Hemoglobin 9.6 gm/dl (10.1-14.3); Lymphocytes # (Auto) 1.2 K/mm3 (1.2-5.4); Mean Corpuscular HGB Conc 33 % (30-34); Mean Corpuscular Volume 95 fl (79-97); Monocytes # (Auto) 0.4 K/mm3 (0.0-0.8); Monocytes % (Auto) 4.6 % (0.0-7.3); Platelet Count 147 K/mm3 (140-440); Red Blood Count 3.05 M/mm3 (3.65-5.03); Red Cell Distribution Width 17.7 % (13.2-15.2)
[2022-01-26] MEDS ORDERED: ONDANSETRON 4 MG/2 ML INJ IV ONE (12:09)
[2022-01-26] MEDS ORDERED: NITROGLYCERIN 2% OINT 1 GM TP ONE (12:09)
[2022-01-26] MEDS ORDERED: ASPIRIN 325 MG TAB PO ONE (12:09)
[2022-01-26] MEDS ORDERED: fentaNYL 100 MCG/2 ML INJ IV ONE (12:09)
--- NOTE | 2022-01-26 12:14 | Emergency Department Report ---
HPI - General Chief Complaint: Chest Pain Time Seen by Provider: 01/26/22 11:37 - HPI HPI: Room 24 The patient is a 66-year-old female present with a chief complaint of chest pain. The patient states she had just arrived at dialysis and was sitting in her chair prior to initiating hemodialysis when she developed substernal chest pressure. Patient states the pressure has been constant and associated with shortness of breath, some diaphoresis and nausea without vomiting. Patient currently gives her chest pressure score 7/10. The patient did not receive any hemodialysis today. Patient states her last stress test she believes occurred last year and was normal but her last cardiac catheterization occurred over 5 years ago. ED Past Medical Hx - Past Medical History Previous Medical History?: Yes Hx Hypertension: Yes Hx CVA: Yes (right sided weakness) Hx Heart Attack/AMI: Yes (1 stent) Hx Congestive Heart Failure: Yes Hx Diabetes: No (Resolved with diet and weight loss) Hx Renal Disease: Yes (RENAL INSUFFICIENCY- stent left kidney) Hx Psychiatric Treatment: Yes (BIPOLAR/SCHIZOPHRENIA) Hx COPD: Yes (No home O2) Additional medical history: HIGH CHOLESTEROL - Surgical History Past Surgical History?: Yes Hx Coronary Stent: Yes (x 2 in May 2015) Additional Surgical History: stent placement x 2 in 2014, knee surgery 11/2017, right upper extremity fistula - Family History Family history: no significant - Social History Smoking Status: Current Every Day Smoker (1/ pack/day) Substance Use Type: None (Denies illicit drug use) - Medications Home Medications: Home Medications Medication Instructions Recorded Confirmed Last Taken Type Quetiapine Fumarate [Seroquel] 100 mg PO BID 08/01/17 05/27/20 04/10/20 History Albuterol Mdi (or & Nicu Only) 2 puff IH QID PRN #1 inha 12/22/17 05/27/20 04/10/20 Rx [ProAir HFA Inhaler] Metoprolol [Lopressor TAB] 50 mg PO BID #60 tablet 05/29/20 Unknown Rx amLODIPine 10 mg PO QDAY #30 tablet 05/29/20 Unknown Rx oxyCODONE /ACETAMINOPHEN [Percocet 1 tab PO Q6H PRN #20 tablet 05/29/20 Unknown Rx 5/325 mg] Amiodarone [Cordarone 200 MG TAB] 200 mg PO BID #60 tablet 01/22/22 Unknown Rx Apixaban [Eliquis] 5 mg PO BID 30 Days #60 tablet 01/22/22 Unknown Rx Aspirin EC [Halfprin EC] 81 mg PO QDAY #30 tablet 01/22/22 Unknown Rx hydrALAZINE [Apresoline TAB] 25 mg PO Q8HR #90 tablet 01/22/22 Unknown Rx predniSONE 10 mg PO QDAY #20 tab 01/22/22 Unknown Rx ED Review of Systems ROS: Stated complaint: CHEST PAIN Other details as noted in HPI Constitutional: diaphoresis Eyes: denies: eye pain ENT: denies: throat pain Respiratory: shortness of breath Cardiovascular: chest pain Endocrine: no symptoms reported Gastrointestinal: nausea. denies: vomiting Genitourinary: denies: discharge, abnormal menses Musculoskeletal: back pain Neurological: denies: headache Physical Exam - Physical Exam Vital Signs: Vital Signs 01/26/22 11:37 Temperature 98 F Pulse Rate 70 Respiratory 16 Rate Blood Pressure 137/75 O2 Sat by Pulse 100 Oximetry Physical Exam: GENERAL: The patient is well-developed well-nourished female lying on stretcher not appearing to be in acute distress. [] HEENT: Normocephalic. Atraumatic. Extraocular motions are intact. Patient has moist mucous membranes. NECK: Supple. Trachea midline CHEST/LUNGS: Faint crackles with occasional expiratory wheeze at bases bilaterally. There is no respiratory distress noted. HEART/CARDIOVASCULAR: Regular. There is no tachycardia. There is no gallop rub or murmur. ABDOMEN: Abdomen is soft, nontender. Patient has normal bowel sounds. There is no abdominal distention. SKIN: There is no rash. There is no edema. There is no diaphoresis. NEURO: The patient is awake, alert, and oriented. The patient is cooperative. The patient has no focal neurologic deficits. The patient has normal speech. GCS 15 MUSCULOSKELETAL: There is no evidence of acute injury. ED Course Vital Signs 01/26/22 11:37 Temperature 98 F Pulse Rate 70 Respiratory 16 Rate Blood Pressure 137/75 O2 Sat by Pulse 100 Oximetry ED Medical Decision Making - Lab Data Result diagrams: 01/26/22 11:49 01/26/22 11:49 - EKG Data -: EKG Interpreted by [place] EKG shows normal: sinus rhythm Rate: normal - EKG Data When compared to previous EKG there are: previous EKG unavailable Interpretation: nonspecific ST-T wave north (T wave inversion in lead V2) - Differential Diagnosis ACS, pericarditis, GERD Critical care attestation.: If time is entered above; I have spent that time in minutes in the direct care of this critically ill patient, excluding procedure time. ED Disposition Clinical Impression: Chest pain Disposition: ADMITTED INPATIENT Is pt being admited?: Yes Does the pt Need Aspirin: Yes Condition: Fair Instructions: Nonspecific Chest Pain, Adult Time of Disposition: 12:40 (Hospitalist called (Dr. Torre)) Heart Score - HEART Score History: Moderately suspicious EKG: Non-specific Age: > 65 Risk factors: > 3 risk factors or hx of atherosclerotic disease Troponin: < normal limit HEART Score: 6 - EKG Read Time Time EKG Completed: 11:36 EKG Read Time: 11:40
[2022-01-26] MEDS ORDERED: LEVALBUTEROL 0.63 MG/3 ML NEBU IH ONE (12:17)
[2022-01-26 12:27] LABS: Creatine Kinase MB 1.3 ng/mL (0.0-4.0)
[2022-01-26 12:28] LABS: Calcium 8.5 mg/dL (8.4-10.2)
[2022-01-26 12:29] LABS: INR 1.08 (0.87-1.13)
--- NOTE | 2022-01-26 12:31 | XRay Report ---
CHEST 1 VIEW 01/26/2022 12:12 PM INDICATION / CLINICAL INFORMATION: chest pain. COMPARISON: 01/19/2022 FINDINGS: SUPPORT DEVICES: Unchanged. HEART / MEDIASTINUM: Stable. LUNGS / PLEURA: Improved aeration of the lungs with persistence of slight increased interstitial kahlil ings. No pneumothorax. ADDITIONAL FINDINGS: No significant additional findings. IMPRESSION: 1. Interval improvement. Signer Name: Isac Randhawa DO Signed: 01/26/2022 12:27 PM Workstation Name: [id number]
--- NOTE | 2022-01-26 13:31 | History and Physical Report ---
History of Present Illness Chief complaint: My chest feels tight History of present illness: 66 YO Female with ESRD on HD(T,R,Sa), HTN, CVA, HI, CHF, Nicotine Dependence, Atrial Fib on Therapeutic Anticoagulation, DM, CKD, COPD, HLD, Bipolar Disorder, CAD S/P Stent Placement presents to ED for evaluation. Patient reports "my chest feels tight". Patient states that she experienced a sudden onset of chest tightness while sitting in her dialysis chair awaiting dialysis. Patient states that the level of her discomfort was 7/10, constant, associate with shortness of breath, not worsened with exertion, not relieved with rest. Patient acknowledges decreased exercise tolerance, dyspnea on exertion, as well as dys pnea at rest. EMS notified and upon arrival the patient was found to be in distress and subsequent transported laceration further care and evaluation of the aforementioned symptoms. Patient was seen and evaluated in the emergency department. All lab and imaging studies reviewed. Patient found to have clinical symptoms consistent with CHF decompensation, as well as end-stage renal disease, fluid overload. Patient admitted to telemetry due to increased risk of cardiac decompensation and for medical stabilization. Nephrology team consulted in ED for urgent dialysis. Cardiology team consulted in ED. Pt denies fever, chills, productive cough, unilateral leg swelling, calf pain, NVD, syncope, dizziness, or recent ill contacts, syncope, known exposure to COVID-19. Prior admission on 01/19/2022 reviewed. All medication listed at time of admission has been reconciled. Advanced care planning conducted in ED. Past History Past Medical History: acute HI, atrial fib, COPD, diabetes, ESRD, heart failure, hypertension, hyperlipidemia, stroke, other (See HPI) Past Surgical History: Other (stent placement x 2 in 2014, knee surgery 11/2017, right upper extremity fistula) Social history: , smoking. denies: alcohol abuse, prescription drug abuse Family history: CAD, diabetes, hypertension Medications and Allergies Allergies Allergy/AdvReac Type Severity Reaction Status Date / Time apple AdvReac Hives Verified 01/22/22 10:35 shell fish Allergy Swelling Uncoded 01/22/22 10:35 Home Medications Medication Instructions Recorded Confirmed Last Taken Type Quetiapine Fumarate [Seroquel] 100 mg PO BID 08/01/17 05/27/20 04/10/20 History Albuterol Mdi (or & Nicu Only) 2 puff IH QID PRN #1 inha 12/22/17 05/27/20 04/10/20 Rx [ProAir HFA Inhaler] Metoprolol [Lopressor TAB] 50 mg PO BID #60 tablet 05/29/20 Unknown Rx amLODIPine 10 mg PO QDAY #30 tablet 05/29/20 Unknown Rx oxyCODONE /ACETAMINOPHEN [Percocet 1 tab PO Q6H PRN #20 tablet 05/29/20 Unknown Rx 5/325 mg] Amiodarone [Cordarone 200 MG TAB] 200 mg PO BID #60 tablet 01/22/22 Unknown Rx Apixaban [Eliquis] 5 mg PO BID 30 Days #60 tablet 01/22/22 Unknown Rx Aspirin EC [Halfprin EC] 81 mg PO QDAY #30 tablet 01/22/22 Unknown Rx hydrALAZINE [Apresoline TAB] 25 mg PO Q8HR #90 tablet 01/22/22 Unknown Rx predniSONE 10 mg PO QDAY #20 tab 01/22/22 Unknown Rx Review of Systems Constitutional: no weight loss, no weight gain, no fever, no chills Ears, nose, mouth and throat: no ear pain, no ear discharge, no tinnitis, no nose pain, no nasal congestion Breasts: no change in shape, no swelling, no mass Cardiovascular: shortness of breath, dyspnea on exertion, decreased exercise tolerance Respiratory: no cough, no cough with sputum, no hemoptysis, no shortness of breath Gastrointestinal: no abdominal pain, no nausea, no change in bowel habits, no hematemesis Genitourinary Female: no pelvic pain, no flank pain, no urinary frequency, no urgency Rectal: no pain, no incontinence, no bleeding Musculoskeletal: no neck stiffness, no neck pain, no shooting leg pain Integumentary: no rash, no pruritis, no redness, no wounds, no jaundice Psychiatric: no anxiety, no memory loss, no insomnia, no hypersomnia, no suicidal ideation Endocrine: no cold intolerance, no polyphagia, no polyuria, no excessive sweating Hematologic/Lymphatic: no easy bruising, no easy bleeding, no lymphedema Allergic/Immunologic: no urticaria, no anaphylaxis Exam - Constitutional Vitals: Temp Pulse Resp BP Pulse Ox 98 F 72 16 137/75 100 01/26/22 11:37 01/26/22 12:30 01/26/22 12:30 01/26/22 11:37 01/26/22 11:37 General appearance: Present: mild distress - EENT Eyes: Present: PERRL ENT: hearing intact, clear oral mucosa - Neck Neck: Present: supple, normal ROM - Respiratory Respiratory effort: normal Respiratory: bilateral: CTA - Cardiovascular Rhythm: irregularly irregular Heart Sounds: Present: S1 & S2. Absent: rub, click - Extremities Extremities: pulses symmetrical, No edema Peripheral Pulses: within normal limits - Abdominal General gastrointestinal: Present: soft, non-tender, non-distended, normal bowel sounds Female genitourinary: Present: normal - Integumentary Integumentary: Present: clear, warm, dry - Musculoskeletal Musculoskeletal: gait normal, strength equal bilaterally - Psychiatric Psychiatric: appropriate mood/affect, intact judgment & insight - Neurologic Neurologic: CNII-XII intact, moves all extremities HEART Score - HEART Score EKG: Non-specific Age: > 65 Risk factors: > 3 risk factors or hx of atherosclerotic disease Troponin: Troponin T 0.015 ng/mL (0.00-0.029) 01/26/22 11:49 Troponin: < normal limit Results - Labs CBC & Chem 7: 01/26/22 11:49 01/26/22 11:49 Labs: Abnormal lab results 01/26/22 01/26/22 01/26/22 Range/Units 11:49 11:49 11:49 RBC 3.05 L (3.65-5.03) M/mm3 Hgb 9.6 L (10.1-14.3) gm/dl Hct 29.0 L (30.3-42.9) % RDW 17.7 H (13.2-15.2) % Eos % (Auto) 6.3 H (0.0-4.3) % Baso % (Auto) 1.9 H (0.0-1.8) % Eos # (Auto) 0.5 H (0.0-0.4) K/mm3 Baso # (Auto) 0.2 H (0.0-0.1) K/mm3 Seg Neutrophils % 72.2 H (40.0-70.0) % PT 15.2 H (12.2-14.9) Sec. BUN 43 H (7-17) mg/dL Creatinine 3.8 H (0.6-1.2) mg/dL Glucose 122 H (65-100) mg/dL Total Creatine Kinase 28 L (30-135) units/L CK-MB (CK-2) Rel Index 4.6 H (0-4) NT-Pro-B Natriuret Pep 57600 H (0-900) pg/mL Assessment and Plan - Patient Problems (1) CHF (congestive heart failure) Current Visit: No Status: Chronic Qualifiers: Heart failure type: combined systolic and diastolic Heart failure chronicity: chronic Qualified Code(s): I50.42 - Chronic combined systolic (congestive) and diastolic (congestive) heart failure Plan to address problem: Strict I's/O, monitor urine output every shift, daily weight, afterload reduction, blood pressure control, urgent dialysis, monitor fluid balance. (2) End stage renal disease Current Visit: Yes Status: Acute Plan to address problem: Nephrology team consulted in ED, dialysis as per renal team, strict I's/O, monitor urine output every shift, avoid nephrotoxic agents. (3) Nicotine dependence Current Visit: No Status: Acute Qualifiers: Nicotine product type: cigarettes Substance use status: in withdrawal Qualified Code(s): F17.213 - Nicotine dependence, cigarettes, with withdrawal Plan to address problem: Supportive care, behavior change counseling, +15 minutes. (4) Afib Current Visit: No Status: Chronic Qualifiers: Atrial fibrillation type: longstanding persistent Qualified Code(s): I48.11 - Longstanding persistent atrial fibrillation Plan to address problem: Rate currently controlled, continue therapeutic anticoagulation, supportive care. Telemetry monitoring. (5) Bipolar 1 disorder Current Visit: No Status: Chronic Plan to address problem: Continue medical management, supportive care, no acute exacerbation at this time. Continue to monitor. (6) COPD (chronic obstructive pulmonary disease) Current Visit: No Status: Chronic Qualifiers: Chronic bronchitis type: mixed simple and mucopurulent Plan to address problem: Supplemental oxygen as clinically indicated, no acute exacerbation at this time, supportive care, continue medical management. (7) Diabetes mellitus Current Visit: No Status: Chronic Plan to address problem: Consistent carbohydrate diet, Accu-Chek, hypoglycemia protocol, insulin protocol, Accu-Chek. (8) HLD (hyperlipidemia) Current Visit: No Status: Chronic Qualifiers: Hyperlipidemia type: mixed hyperlipidemia Qualified Code(s): E78.2 - Mixed hyperlipidemia Plan to address problem: Statin therapy, supportive care, low-cholesterol diet (9) HTN (hypertension) Current Visit: No Status: Chronic Qualifiers: Hypertension type: primary hypertension Qualified Code(s): I10 - Essential (primary) hypertension Plan to address problem: Monitor blood pressure every shift, continue medical management (10) DVT prophylaxis Current Visit: Yes Status: Acute Plan to address problem: SCDs bilateral lower extremities while in bed, continue therapeutic antico agulation (11) Advance care planning Current Visit: Yes Status: Acute Plan to address problem: Disease education conducted, care plan discussed, diagnoses discussed, prognosis discussed, patient is full code. Patient knowledges understanding and agreement with care plan, +30 minutes
[2022-01-26] MEDS ORDERED: ACETAMINOPHEN 325 MG TAB PO PRN (13:50)
[2022-01-26] MEDS ORDERED: ALBUTEROL 2.5 MG/3 ML NEBU IH PRN (13:50)
[2022-01-26] MEDS ORDERED: HYDROmorphone 1 MG/1 ML INJ IV PRN (13:50)
[2022-01-26] MEDS ORDERED: ONDANSETRON 4 MG/2 ML INJ IV PRN (13:50)
--- NOTE | 2022-01-26 15:07 | Consultation ---
History of Present Illness - Reason for Consult Consult date: 01/26/22 end stage renal disease - History of Present Illness The patient is a 66 YO female known to our service with history of DM-2, HTN, HLD, Bipolar Disorder, CAD S/P Stent Placement, Paroxysmal atrial fibrillation, HFpEF, COPD, Anemia and ESRD on hemodialysis who presented to [facility] ED 01/26 with c/o chest pain. Patient states that she experienced a sudden onset of L sided chest tightness while sitting in her dialysis chair awaiting dialysis. The pain was 7/10, constant, not radiating and associate with shortness of breath. Patient has some baseline dyspnea on exertion. Patient denies any N, V, D, abd pain, dizziness, cough, leg swelling, weakness, fever, chills, rash, blurry vision, hematuria or hemoptysis. CXR showed increased interstitial markings. Patient was admitted to telemetry for evaluation. Labs and imaging noted. Nephrology was consulted for ESRD management. Past History Past Medical History: other (See HPI.) Medications and Allergies Allergies Allergy/AdvReac Type Severity Reaction Status Date / Time apple AdvReac Hives Verified 01/22/22 10:35 shell fish Allergy Swelling Uncoded 01/22/22 10:35 Home Medications Medication Instructions Recorded Confirmed Last Taken Type Quetiapine Fumarate [Seroquel] 100 mg PO BID 08/01/17 01/26/22 04/10/20 History Albuterol Mdi (or & Nicu Only) 2 puff IH QID PRN #1 inha 12/22/17 01/26/22 04/10/20 Rx [ProAir HFA Inhaler] Metoprolol [Lopressor TAB] 50 mg PO BID #60 tablet 05/29/20 01/26/22 Unknown Rx amLODIPine 10 mg PO QDAY #30 tablet 05/29/20 01/26/22 Unknown Rx oxyCODONE /ACETAMINOPHEN [Percocet 1 tab PO Q6H PRN #20 tablet 05/29/20 01/26/22 Unknown Rx 5/325 mg] Amiodarone [Cordarone 200 MG TAB] 200 mg PO BID #60 tablet 01/22/22 01/26/22 Unknown Rx Apixaban [Eliquis] 5 mg PO BID 30 Days #60 tablet 01/22/22 01/26/22 Unknown Rx Aspirin EC [Halfprin EC] 81 mg PO QDAY #30 tablet 01/22/22 01/26/22 Unknown Rx Active Meds: Active Medications Acetaminophen (Acetaminophen 325 Mg Tab) 650 mg PO Q4H PRN PRN Reason: Pain MILD(1-3)/Fever >100.5/SILVA Albuterol (Albuterol 2.5 Mg/3 Ml Nebu) 2.5 mg IH Q4HRT PRN PRN Reason: Shortness Of Breath Famotidine (Famotidine 20 Mg Tab) 20 mg PO QDAY CHRISTEL Hydromorphone HCl (Hydromorphone 1 Mg/1 Ml Inj) 0.5 mg IV Q23H PRN PRN Reason: Pain , Severe (7-10) Ondansetron HCl (Ondansetron 4 Mg/2 Ml Inj) 4 mg IV Q8H PRN PRN Reason: Nausea And Vomiting Oxycodone/Acetaminophen (Oxycodone /Acetaminophen 5-325mg Tab) 1 tab PO Q16H PRN PRN Reason: Pain, Moderate (4-6) Sodium Chloride (Sodium Chloride 0.9% 10 Ml Flush Syringe) 10 ml IV BID CHRISTEL Sodium Chloride (Sodium Chloride 0.9% 10 Ml Flush Syringe) 10 ml IV PRN PRN PRN Reason: LINE FLUSH Review of Systems All systems: negative Exam - Vital Signs Vital signs: Vital Signs Temp Pulse Resp BP Pulse Ox 98 F 70 16 137/75 100 01/26/22 11:37 01/26/22 11:37 01/26/22 11:37 01/26/22 11:37 01/26/22 11:37 Results - Lab Results 01/26/22 11:49 01/27/22 04:54 Most recent lab results Calcium 8.5 mg/dL (8.4-10.2) 01/26/22 11:49 Assessment and Plan 1. ESRD: Patient is on maintenance hemodialysis, TTS schedule. Last outpatient HD 01/24. Hemodialysis: 01/26. 2. FEN: Volume control, UF with HD as tolerated. Monitor lytes and volume status. 3. Chest pain at rest: H/o CAD s/p PCI and stenting in [place]. Recent thallium scan done on last visit showed normal myocardial perfusion scan images. Trend Troponin. Cardiology consult. Monitor. 4. Chronic HFpEF: Volume control thru HD. Fluid restriction, monitor I/O. 5. COPD: Not in exacerbation. Nebs and O2 as needed. 6. Paroxysmal A.fib: SR. Monitor. 7. Hypertension: Volume control with HD. Continue home BP meds. Monitor BP. 8. Normocytic Anemia, POA: 2/2 ESRD. Epogen with HD as needed. Monitor. Subjective: Patient was seen and examined at the bedside. Examination: General appearance: well-developed, appears stated age, no distress HEENT: atraumatic, ANA Neck: trachea midline Respiratory: faint rales heard Heart: S1S2, no murmur Abdomen: soft, bowel sounds heard, NT Integumentary: no obvious rash Neurologic: AO, able to move extremities Ext: no edema Hemodialysis access: R IJ tunnel catheter, R arm AVG
[2022-01-26] MEDS: FAMOTIDINE 20 MG TAB PO SCH (16:09)
[2022-01-26] MEDS: oxyCODONE /ACETAMINOPHEN 5-325MG TAB PO PRN (16:11)
[2022-01-27] MEDS: NITROGLYCERIN 0.4 MG TAB SUBL SL PRN ×4 (04:15→10:02)
[2022-01-27] MEDS ORDERED: HYDROmorphone 1 MG/1 ML INJ IM ONE (04:52)
[2022-01-27 05:54] LABS: Calcium 8.2 mg/dL (8.4-10.2)
[2022-01-27 05:55] LABS: Creatine Kinase MB 1.2 ng/mL (0.0-4.0)
[2022-01-27] MEDS: FAMOTIDINE 20 MG TAB PO SCH (10:04)
--- NOTE | 2022-01-27 10:10 | Consultation ---
History of Present Illness Consult date: 01/27/22 Consult reason: chest pain History of present illness: 66-year-old -[place] female with a history of coronary artery disease status post PCI with a stent in/session to the LAD end-stage renal disease essential hypertension and paroxysmal atrial fibrillation presenting with chest pain which she describes as substernal pressing chest pain. Recent admissions to [facility] on 21 January had a Lexiscan thallium scan which was normal left ventricular ejection fraction was also normal. Patient admitted for further evaluation. Recently moved from [place] to [facility] she does not have a regular sheet combining operator or primary care physician. Past History Past Medical History: acute HI, atrial fib, COPD, diabetes, ESRD, heart failure, hypertension, hyperlipidemia, stroke, other (See HPI) Past Surgical History: Other (stent placement x 2 in 2014, knee surgery 11/2017, right upper extremity fistula, pacemaker insertion) Social history: , smoking. denies: alcohol abuse, prescription drug abuse Family history: CAD, diabetes, hypertension Medications and Allergies Allergies Allergy/AdvReac Type Severity Reaction Status Date / Time apple AdvReac Hives Verified 01/22/22 10:35 shell fish Allergy Swelling Uncoded 01/22/22 10:35 Home Medications Medication Instructions Recorded Confirmed Last Taken Type Quetiapine Fumarate [Seroquel] 100 mg PO BID 08/01/17 01/26/22 04/10/20 History Albuterol Mdi (or & Nicu Only) 2 puff IH QID PRN #1 inha 12/22/17 01/26/22 04/10/20 Rx [ProAir HFA Inhaler] Metoprolol [Lopressor TAB] 50 mg PO BID #60 tablet 05/29/20 01/26/22 Unknown Rx amLODIPine 10 mg PO QDAY #30 tablet 05/29/20 01/26/22 Unknown Rx oxyCODONE /ACETAMINOPHEN [Percocet 1 tab PO Q6H PRN #20 tablet 05/29/20 01/26/22 Unknown Rx 5/325 mg] Amiodarone [Cordarone 200 MG TAB] 200 mg PO BID #60 tablet 01/22/22 01/26/22 Unknown Rx Apixaban [Eliquis] 5 mg PO BID 30 Days #60 tablet 01/22/22 01/26/22 Unknown Rx Aspirin EC [Halfprin EC] 81 mg PO QDAY #30 tablet 01/22/22 01/26/22 Unknown Rx Active Meds: Active Medications Acetaminophen (Acetaminophen 325 Mg Tab) 650 mg PO Q4H PRN PRN Reason: Pain MILD(1-3)/Fever >100.5/SILVA Albuterol (Albuterol 2.5 Mg/3 Ml Nebu) 2.5 mg IH Q4HRT PRN PRN Reason: Shortness Of Breath Famotidine (Famotidine 20 Mg Tab) 20 mg PO QDAY [facility] Last Admin: 01/26/22 16:09 Dose: 20 mg Hydromorphone HCl (Hydromorphone 1 Mg/1 Ml Inj) 0.5 mg IV Q23H PRN PRN Reason: Pain , Severe (7-10) Last Admin: 01/26/22 21:34 Dose: 0.5 mg Nitroglycerin (Nitroglycerin 0.4 Mg Tab Subl) 0.4 mg SL .Q5MIN PRN PRN Reason: Chest Pain Last Admin: 01/27/22 04:25 Dose: 0.4 mg Ondansetron HCl (Ondansetron 4 Mg/2 Ml Inj) 4 mg IV Q8H PRN PRN Reason: Nausea And Vomiting Oxycodone/Acetaminophen (Oxycodone /Acetaminophen 5-325mg Tab) 1 tab PO Q16H PRN PRN Reason: Pain, Moderate (4-6) Last Admin: 01/26/22 16:11 Dose: 1 tab Sodium Chloride (Sodium Chloride 0.9% 10 Ml Flush Syringe) 10 ml IV BID [facility] Last Admin: 01/26/22 21:33 Dose: 10 ml Sodium Chloride (Sodium Chloride 0.9% 10 Ml Flush Syringe) 10 ml IV PRN PRN PRN Reason: LINE FLUSH Review of Systems Constitutional: no weight loss, no weight gain, no fever, no chills, no fatigue, no weakness Ears, nose, mouth and throat: no ear pain, no ear discharge, no tinnitis, no decreased hearing, no mouth pain Cardiovascular: chest pain, dyspnea on exertion, no palpitations, no edema, no syncope Respiratory: dyspnea on exertion, no cough with sputum, no congestion Gastrointestinal: no abdominal pain, no nausea, no vomiting, no melena, no hematochezia Genitourinary Female: no menorrhagia, no dysuria Musculoskeletal: no neck pain, no shooting arm pain Integumentary: no rash, no pruritis, no redness, no jaundice, no bullae Neurological: no paralysis, no weakness, no numbness, no vertigo, no headaches Psychiatric: no anxiety Endocrine: no cold intolerance, no heat intolerance, no polyphagia, no polydipsia, no polyuria, no nocturia Hematologic/Lymphatic: no easy bruising, no easy bleeding Allergic/Immunologic: no urticaria, no allergic rhinitis Physical Examination Vital Signs Pulse Ox 100 01/26/22 11:36 General appearance: no acute distress, well-nourished HEENT: Positive: PERRL, Mucus Membranes Moist Neck: Positive: neck supple, trachea midline Cardiac: Positive: Reg Rate and Rhythm, S1/S2. Negative: Audible Murmur Lungs: Positive: clear to auscultation, Normal Breath Sounds, Other (Vascath right subclavian area, Pacemaker pocket left subclavian area) Neuro: Positive: Grossly Intact Abdomen: Positive: Unremarkable, Soft, Active Bowel Sounds Skin: Positive: Clear Extremities: Absent: edema Results 01/26/22 11:49 01/27/22 04:54 Cardiac Enzymes 01/26/22 01/27/22 Range/Units 11:49 04:59 CK-MB (CK-2) 1.3 1.2 (0.0-4.0) ng/mL Coagulation 01/26/22 Range/Units 11:49 PT 15.2 H (12.2-14.9) Sec. INR 1.08 (0.87-1.13) CBC 01/26/22 Range/Units 11:49 WBC 7.8 (4.5-11.0) K/mm3 RBC 3.05 L (3.65-5.03) M/mm3 Hgb 9.6 L (10.1-14.3) gm/dl Hct 29.0 L (30.3-42.9) % Plt Count 147 (140-440) K/mm3 Lymph # (Auto) 1.2 (1.2-5.4) K/mm3 Dawes # (Auto) 0.4 (0.0-0.8) K/mm3 Eos # (Auto) 0.5 H (0.0-0.4) K/mm3 Baso # (Auto) 0.2 H (0.0-0.1) K/mm3 Comprehensive Metabolic Panel 01/26/22 01/27/22 Range/Units 11:49 04:54 Sodium 144 141 (137-145) mmol/L Potassium 3.8 3.7 (3.6-5.0) mmol/L Chloride 106.3 103.4 (98-107) mmol/L Carbon Dioxide 25 27 (22-30) mmol/L BUN 43 H 27 H (7-17) mg/dL Creatinine 3.8 H 2.6 H (0.6-1.2) mg/dL Glucose 122 H 109 H (65-100) mg/dL Calcium 8.5 8.2 L (8.4-10.2) mg/dL EKG interpretations - Telemetry EKG Rhythm: Paced (paced Atrial rhythm with ventricular sensing) Assessment and Plan 1. Chest pain consistent with angina at rest. 2. Coronary artery disease status post PCI and stenting in [place] 3. Presence of permanent pacemaker dual-chamber 4. Paroxysmal atrial fibrillation 5. Essential hypertension 6. Hyperlipidemia 7. End-stage renal disease on hemodialysis 8. Type 2 diabetes mellitus 9. History of cerebrovascular disease Patient is known to [facility] and has a history of noncompliance her descriptive features of chest pain could be consistent with angina at this point recent thallium scan done on last visit showed normal myocardial perfusion scan images and serum troponin levels now essentially negative. Last cardiac cath was done 2 years ago which showed widely patent stent in the LAD artery. Plan. We will recommend maximizing anti-ischemic medication patient also advised to stop smoking encourage patient to seek out a new PCP as well as a sheet combining operator for follow-up if she hopes to remain in [place].
--- NOTE | 2022-01-27 11:09 | Discharge Summary ---
Providers - Providers Date of Admission: 01/26/22 13:50 Date of discharge: 01/27/22 Attending physician: MIKEL KRAUSE 01/26/22 12:48 Consult to Physician [CONS] Urgent Comment: Consulting Provider: SEBAS DELGADO Physician Instructions: Reason For Exam: ESRD 01/26/22 16:31 Consult to Physician [CONS] Routine Comment: Consulting Provider: DOROTEO GARVIN Physician Instructions: Reason For Exam: chf Primary care physician: SEWER SEPARATION DESIGNER Hospitalization Condition: Fair Hospital course: The patient is a 66 YO female known to our service with history of DM-2, HTN, HLD, Bipolar Disorder, CAD S/P Stent Placement, Paroxysmal atrial fibrillation, HFpEF, COPD, Anemia and ESRD on hemodialysis who presented to [facility] ED 01/26 with c/o chest pain. Patient states that she experienced a sudden onset of L sided chest tightness while sitting in her dialysis chair awaiting dialysis. The pain was 7/10, constant, not radiating and associate with shortness of breath. Patient has some baseline dyspnea on exertion. Patient denies any N, V, D, abd pain, dizziness, cough, leg swelling, weakness, fever, chills, rash, blurry vis ion, hematuria or hemoptysis. CXR showed increased interstitial markings. Patient was admitted to telemetry for evaluation. Labs and imaging noted. Nephrology was consulted for ESRD management. Patient was dialyzed following admission, cardiac enzymes and EKG were followed. Cardiology evaluated the patient and recommended no further intervention, chest pain most likely due to volume overload. Of note patient was recently discharged from the hospital on 01/22/2022. Patient was encouraged to be compliant with diet and fluid restriction and outpatient medications. Patient was discharged home in stable condition after being cleared by nephrology and cardiology. Patient was recommended to follow-up with her PCP in 1 week. Disposition: 01 HOME / SELF CARE / HOMELESS Final Discharge Diagnosis (Prints w/discharge instructions): --Noncompliant with hemodialysis/fluid overload. --ESRD; on hemodialysis TTS. --Hypertensive urgency;. --Paroxysmal atrial fibrillation. --Chest pain, atypical due to GERD. --Acute on chronic diastolic CHF (congestive heart failure) due to volume overload Time spent for discharge: 34 minutes Core Measure Documentation - Palliative Care Palliative Care/ Comfort Measures: Not Applicable - Core Measures Any of the following diagnoses?: none Exam - Physical Exam Narrative exam: GENERAL: well-developed and well-nourished elderly -Swedish female lying on bed appeared to be in no discomfort. HEENT: Normocephalic. Atraumatic. No conjunctival congestion or icterus. Patient has moist mucous membranes. NECK: Supple. Trachea midline. CHEST/LUNGS: Clear to auscultated bilaterally, breathing nonlabored. No wheezes crackles or rhonchi. HEART/CARDIOVASCULAR: Regular in rate and rhythm. S1 and S2 positive. ABDOMEN: Abdomen is soft, nontender. Patient has normal bowel sounds. SKIN: There is no rash. Warm and dry. NEURO: No focal motor deficit. Follows command. MUSCULOSKELETAL: No joint effusion or tenderness. EXTRIMITY: No edema, no cyanosis or clubbing. PSYCH: Cooperative. - Constitutional Vitals: Temp Pulse Resp BP Pulse Ox 98.6 F 120 H 16 165/96 100 01/27/22 07:44 01/27/22 07:44 01/27/22 07:44 01/27/22 07:44 01/27/22 07:44 Plan Activity: advance as tolerated Weight Bearing Status: Weight Bear as Tolerated Diet: renal Follow up with: MILES DILL MD [Primary Care Provider] - 7 Days CASSY CRUZ MD [Staff Physician] - 7 Days
[2022-01-27 12:18] VITALS: BP 130/73
[2022-01-27] MEDS: oxyCODONE /ACETAMINOPHEN 5-325MG TAB PO PRN (13:13)
--- NOTE | 2022-01-27 13:35 | Progress Note ---
Assessment and Plan 1. ESRD: Patient is on maintenance hemodialysis, TTS schedule. Last outpatient HD 01/24. Hemodialysis: 01/26. 2. FEN: Volume control, UF with HD as tolerated. Monitor lytes and volume status. 3. Chest pain at rest: H/o CAD s/p PCI and stenting in [place]. Recent thallium scan done on last visit showed normal myocardial perfusion scan images. Trend Troponin. Seen by Cards. Monitor. 4. Chronic HFpEF: Volume control thru HD. Fluid restriction, monitor I/O. 5. COPD: Not in exacerbation. Nebs and O2 as needed. 6. Paroxysmal A.fib: SR. Monitor. 7. Hypertension: Volume control with HD. Continue home BP meds. Monitor BP. 8. Normocytic Anemia, POA: 2/2 ESRD. Epogen with HD as needed. Monitor. Subjective: Patient was seen and examined at the bedside. Doing much better. Examination: General appearance: well-developed, appears stated age, no distress HEENT: atraumatic, ANA Neck: trachea midline Respiratory: faint rales heard Heart: S1S2, no murmur Abdomen: soft, bowel sounds heard, NT Integumentary: no obvious rash Neurologic: AO, able to move extremities Ext: no edema Hemodialysis access: R IJ tunnel catheter, R arm AVG Subjective Date of service: 01/27/22 Objective - Vital Signs Vital signs: Vital Signs - 12hr 01/27/22 01/27/22 01/27/22 04:13 04:20 04:25 Temperature 97.8 F Pulse Rate 105 H Respiratory 18 Rate Blood Pressure 158/95 Blood Pressure 150/90 145/89 [Left] O2 Sat by Pulse 100 Oximetry 01/27/22 01/27/22 01/27/22 07:05 07:44 11:24 Temperature 98.6 F 99.1 F Pulse Rate 120 H 70 Respiratory 16 16 Rate Blood Pressure 115/80 165/96 130/73 Blood Pressure [Left] O2 Sat by Pulse 100 100 Oximetry 01/27/22 11:30 Temperature Pulse Rate Respiratory 18 Rate Blood Pressure Blood Pressure [Left] O2 Sat by Pulse 100 Oximetry - Lab 01/26/22 11:49 01/27/22 04:54 Most recent lab results Calcium 8.2 mg/dL (8.4-10.2) L 01/27/22 04:54 Medications & Allergies - Medications Allergies/Adverse Reactions: Allergies apple Adverse Reaction (Verified 01/22/22 10:35) Hives yellow and green apples. can eat red. shell fish Allergy (Uncoded 01/22/22 10:35) Swelling allergic to seafood except blue crab Home Medications: Home Medications Medication Instructions Recorded Confirmed Last Taken Type Quetiapine Fumarate [Seroquel] 100 mg PO BID 08/01/17 01/26/22 04/10/20 History Albuterol Mdi (or & Nicu Only) 2 puff IH QID PRN #1 inha 12/22/17 01/26/22 04/10/20 Rx [ProAir HFA Inhaler] Metoprolol [Lopressor TAB] 50 mg PO BID #60 tablet 05/29/20 01/26/22 Unknown Rx amLODIPine 10 mg PO QDAY #30 tablet 05/29/20 01/26/22 Unknown Rx oxyCODONE /ACETAMINOPHEN [Percocet 1 tab PO Q6H PRN #20 tablet 05/29/20 01/26/22 Unknown Rx 5/325 mg] Amiodarone [Cordarone 200 MG TAB] 200 mg PO BID #60 tablet 01/22/22 01/26/22 Unknown Rx Apixaban [Eliquis] 5 mg PO BID 30 Days #60 tablet 01/22/22 01/26/22 Unknown Rx Aspirin EC [Halfprin EC] 81 mg PO QDAY #30 tablet 01/22/22 01/26/22 Unknown Rx Active Medications: Generic Name Dose Route Start Last Admin Trade Name Freq PRN Reason Stop Dose Admin Acetaminophen 650 mg 01/26/22 13:50 01/27/22 10:03 Acetaminophen 325 Mg Tab PO 650 mg Q4H PRN Administration Pain MILD(1-3)/Fever >100.5/SILVA Albuterol 2.5 mg 01/26/22 13:50 Albuterol 2.5 Mg/3 Ml Nebu IH Q4HRT PRN Shortness Of Breath Famotidine 20 mg 01/26/22 16:00 01/27/22 10:04 Famotidine 20 Mg Tab PO 20 mg QDAY CHRISTEL Administration Hydromorphone HCl 0.5 mg 01/26/22 13:50 01/26/22 21:34 Hydromorphone 1 Mg/1 Ml Inj IV 0.5 mg Q23H PRN Administration Pain , Severe (7-10) Nitroglycerin 0.4 mg 01/27/22 04:45 01/27/22 10:02 Nitroglycerin 0.4 Mg Tab Subl SL 0.4 mg .Q5MIN PRN Administration Chest Pain Ondansetron HCl 4 mg 01/26/22 13:50 Ondansetron 4 Mg/2 Ml Inj IV Q8H PRN Nausea And Vomiting Oxycodone/Acetaminophen 1 tab 01/26/22 13:50 01/27/22 13:13 Oxycodone /Acetaminophen 5-325mg Tab PO 1 tab Q16H PRN Administration Pain, Moderate (4-6) Sodium Chloride 10 ml 01/26/22 22:00 01/27/22 10:10 Sodium Chloride 0.9% 10 Ml Flush Syringe IV 10 ml BID CHRISTEL Administration Sodium Chloride 10 ml 01/26/22 13:50 Sodium Chloride 0.9% 10 Ml Flush Syringe IV PRN PRN LINE FLUSH
--- NOTE | 2022-01-28 08:58 | Electrocardiograph Report ---
[facility] Test Date: 2022-01-26 Test Time: 11:36:48 Pat Name: TEETEE MARTINEZ Department: Room: A458 Gender: F Nitrator Operator: GP : 1955 Requested By: MARLA BARRY Order Number: [id number] Reading MD: Isis Steele Measurements Intervals [place] Rate: 70 P: [place]: 102 QRS: 2 QRSD: 93 T: 76 QT: 455 QTc: 491 Interpretive Statements Atrial-paced complexes Anteroseptal infarct, age indeterminate Compared to ECG 01/19/2022 07:43:24 Mechanical atrial pacing has replaced sinus rhythm Electronically Signed On 01-28-2022 8:58:04 EDT by Isis Steele
--- NOTE | 2022-01-28 09:06 | Electrocardiograph Report ---
[facility] Test Date: 2022-01-27 Test Time: 03:26:45 Pat Name: TEETEE MARTINEZ Department: Room: A458 1 Gender: F Classer: 23 : 1955 Requested By: MIKEL KRAUSE Order Number: [id number] Reading MD: Isis Steele Measurements Intervals [place] Rate: 115 P: [place]: QRS: 14 QRSD: 96 T: 51 QT: 429 QTc: 595 Interpretive Statements Atrial flutter with predominant 2:1 AV block Low voltage QRS Compared to ECG 01/26/2022 11:36:48 Atrial flutter has replaced sinus rhythm Intermittent atrial pacing is no longer evident Electronically Signed On 01-28-2022 9:05:42 EDT by Iiss Steele
== END 2022-01-27 15:23 | disposition home or self-care (01) | DRG 391 ==
LOC: ED 11:31 → 4A 13:50
PROVIDERS: ADMIT Internal Medicine; ATTEND Internal Medicine
PROC: 5A1D70Z Performance of Urinary Filtration, Intermittent, Less than 6 Hours Per Day (ICD-10-PCS; principal; 2022-01-26)
DX: K21.9 Gastro-esophageal reflux disease without esophagitis (principal); N18.6 End stage renal disease; I50.33 Acute on chronic diastolic (congestive) heart failure; I13.2 Hypertensive heart and chronic kidney disease with heart failure and with stage 5 chronic kidney disease, or end stage renal disease; I48.11 Longstanding persistent atrial fibrillation; E87.70 Fluid overload, unspecified; E78.00 Pure hypercholesterolemia, unspecified; J44.9 Chronic obstructive pulmonary disease, unspecified; I25.2 Old myocardial infarction; F31.9 Bipolar disorder, unspecified; I16.0 Hypertensive urgency; F20.9 Schizophrenia, unspecified; F17.200 Nicotine dependence, unspecified, uncomplicated; I25.10 Atherosclerotic heart disease of native coronary artery without angina pectoris; E78.2 Mixed hyperlipidemia; I48.0 Paroxysmal atrial fibrillation; D63.1 Anemia in chronic kidney disease; Z95.0 Presence of cardiac pacemaker; Z91.013 Allergy to seafood; Z86.73 Personal history of transient ischemic attack (TIA), and cerebral infarction without residual deficits; Z83.3 Family history of diabetes mellitus; Z82.49 Family history of ischemic heart disease and other diseases of the circulatory system; Z91.018 Allergy to other foods
CPT/HCPCS: 36415; 71045; 80048; 82550; 82553; 82962; 83880; 84484; 85025; 85610; 93005; 94644; 94760; G0378; J1170; J2405; J3010

== ENCOUNTER 2022-02-05 13:58 | Observation (INO) | payer MEDICARE ==
[2022-02-05] MEDS ORDERED: FUROSEMIDE 40 MG/4 ML INJ IV ONE (14:19)
[2022-02-05] MEDS ORDERED: ALBUTEROL 2.5 MG/3 ML NEBU IH ONE (14:19)
[2022-02-05] MEDS ORDERED: ASPIRIN 325 MG TAB PO ONE (14:20)
[2022-02-05] MEDS ORDERED: NITROGLYCERIN 0.4 MG TAB SUBL SL PRN (14:22)
--- NOTE | 2022-02-05 14:42 | XRay Report ---
CHEST 1 VIEW INDICATION: chest pain. COMPARISON: 01/26/2022 FINDINGS: Support devices: Right IJ permacath and 2-lead pacemaker device remain in good position. Heart: Stable borderline heart size Lungs/Pleura: The lungs are generally clear with no evidence for infiltrate, pleural effusion or pneu mothorax. Additional findings: None. IMPRESSION: No acute findings. No change since 01/26/2022. Signer Name: Clayton Snow Jr, MD Signed: 02/05/2022 2:38 PM Workstation Name: [id number]
[2022-02-05 14:51] LABS: Basophils # (Auto) 0.1 K/mm3 (0.0-0.1); Basophils % (Auto) 0.9 % (0.0-1.8); Eosinophils # (Auto) 0.4 K/mm3 (0.0-0.4); Eosinophils % (Auto) 4.2 % (0.0-4.3); Hemoglobin 9.5 gm/dl (10.1-14.3); Lymphocytes # (Auto) 1.6 K/mm3 (1.2-5.4); Lymphocytes % (Auto) 16.9 % (13.4-35.0); Mean Corpuscular HGB Conc 33 % (30-34); Mean Corpuscular Volume 96 fl (79-97); Monocytes # (Auto) 0.6 K/mm3 (0.0-0.8); Monocytes % (Auto) 6.7 % (0.0-7.3); Platelet Count 112 K/mm3 (140-440); Red Blood Count 3.04 M/mm3 (3.65-5.03); Red Cell Distribution Width 17.6 % (13.2-15.2)
[2022-02-05 15:02] LABS: INR 1.14 (0.87-1.13)
[2022-02-05 15:08] LABS: Partial Thromboplastin Time 68.5 Sec. (24.2-36.6)
[2022-02-05 15:10] LABS: Albumin 4.1 g/dL (3.9-5)
[2022-02-05 15:23] LABS: Calcium 8.6 mg/dL (8.4-10.2)
--- NOTE | 2022-02-05 15:42 | Emergency Department Report ---
ED Chest Pain HPI - General Chief Complaint: Chest Pain Stated Complaint: CHEST PAIN Time Seen by Provider: 02/05/22 14:12 Source: patient, EMS Mode of arrival: Stretcher Limitations: No Limitations - History of Present Illness Initial Comments: Patient is a 66-year-old F Samoan female with a past medical history of DM-2, HTN, HLD, Bipolar Disorder, CAD S/P Stent Placement, Paroxysmal atrial fibrillation, HFpEF, COPD, Anemia and ESRD on hemodialysis who presented to [facility] ED with chest pain. Patient was at dialysis this morning and started having chest pressure. States that she has some accompanying shortness of breath. Denies cough cold congestion. Patient states she did receive her full dialysis session. Patient states that the pain is in the center chest and is pressure- like sensation. - Related Data Home Medications Medication Instructions Recorded Confirmed Last Taken Quetiapine Fumarate [Seroquel] 100 mg PO BID 08/01/17 01/26/22 04/10/20 Previous Rx's Medication Instructions Recorded Last Taken Type Albuterol Mdi (or & Nicu Only) 2 puff IH QID PRN #1 inha 12/22/17 04/10/20 Rx [ProAir HFA Inhaler] Metoprolol [Lopressor TAB] 50 mg PO BID #60 tablet 05/29/20 Unknown Rx amLODIPine 10 mg PO QDAY #30 tablet 05/29/20 Unknown Rx oxyCODONE /ACETAMINOPHEN [Percocet 1 tab PO Q6H PRN #20 tablet 05/29/20 Unknown Rx 5/325 mg] Amiodarone [Cordarone 200 MG TAB] 200 mg PO BID #60 tablet 01/22/22 Unknown Rx Apixaban [Eliquis] 5 mg PO BID 30 Days #60 tablet 01/22/22 Unknown Rx Aspirin EC [Halfprin EC] 81 mg PO QDAY #30 tablet 01/22/22 Unknown Rx Allergies Allergy/AdvReac Type Severity Reaction Status Date / Time apple AdvReac Hives Verified 02/05/22 14:00 shell fish Allergy Swelling Uncoded 01/22/22 10:35 Heart Score - HEART Score History: Slightly suspicious EKG: Non-specific Age: > 65 Risk factors: > 3 risk factors or hx of atherosclerotic disease Troponin: < normal limit HEART Score: 5 - EKG Read Time Time EKG Completed: 14:50 EKG Read Time: 14:52 ED Review of Systems ROS: Stated complaint: CHEST PAIN Other details as noted in HPI Comment: All other systems reviewed and negative ED Past Medical Hx - Past Medical History Hx Hypertension: Yes Hx CVA: Yes (right sided weakness) Hx Heart Attack/AMI: Yes (1 stent) Hx Congestive Heart Failure: Yes Hx Diabetes: Yes Hx Renal Disease: Yes (RENAL INSUFFICIENCY- stent left kidney) Hx Psychiatric Treatment: Yes (BIPOLAR/SCHIZOPHRENIA) Hx COPD: Yes Additional medical history: HIGH CHOLESTEROL - Surgical History Hx Coronary Stent: Yes (x 2 in May 2015) Additional Surgical History: stent placement x 2 in 2014, knee surgery 11/2017 - Social History Smoking Status: Current Every Day Smoker - Medications Home Medications: Home Medications Medication Instructions Recorded Confirmed Last Taken Type Quetiapine Fumarate [Seroquel] 100 mg PO BID 08/01/17 01/26/22 04/10/20 History Albuterol Mdi (or & Nicu Only) 2 puff IH QID PRN #1 inha 12/22/17 01/26/22 04/10/20 Rx [ProAir HFA Inhaler] Metoprolol [Lopressor TAB] 50 mg PO BID #60 tablet 05/29/20 01/26/22 Unknown Rx amLODIPine 10 mg PO QDAY #30 tablet 05/29/20 01/26/22 Unknown Rx oxyCODONE /ACETAMINOPHEN [Percocet 1 tab PO Q6H PRN #20 tablet 05/29/20 01/26/22 Unknown Rx 5/325 mg] Amiodarone [Cordarone 200 MG TAB] 200 mg PO BID #60 tablet 01/22/22 01/26/22 Unknown Rx Apixaban [Eliquis] 5 mg PO BID 30 Days #60 tablet 01/22/22 01/26/22 Unknown Rx Aspirin EC [Halfprin EC] 81 mg PO QDAY #30 tablet 01/22/22 01/26/22 Unknown Rx ED Physical Exam - General Limitations: No Limitations General appearance: alert, in no apparent distress - Head Head exam: Present: atraumatic, normocephalic - Eye Eye exam: Present: normal appearance - ENT ENT exam: Present: mucous membranes moist - Neck Neck exam: Present: normal inspection - Respiratory Respiratory exam: Present: respiratory distress, wheezes, rales. Absent: normal lung sounds bilaterally - Cardiovascular Cardiovascular Exam: Present: regular rate, normal rhythm, normal heart sounds. Absent: systolic murmur, diastolic murmur, rubs, gallop - GI/Abdominal GI/Abdominal exam: Present: soft, normal bowel sounds. Absent: distended, guarding, rebound - Extremities Exam Extremities exam: Present: normal inspection - Back Exam Back exam: Present: normal inspection - Neurological Exam Neurological exam: Present: alert, oriented X3 - Psychiatric Psychiatric exam: Present: normal affect, normal mood - Skin Skin exam: Present: warm, dry, intact, normal color. Absent: rash ED Course Vital Signs 02/05/22 13:59 Pulse Rate 110 H Blood Pressure 146/92 [Left] O2 Sat by Pulse 98 Oximetry BLAS score - Blas Score Age > 65: (1) Yes Aspirin use within the Past 7 Days: (0) No 3 or more CAD Risk Factors: (1) Yes 2 or more Angina events in past 24 hrs: (1) Yes Known CAD with more than 50% Stenosis: (1) Yes Elevated Cardiac Markers: (0) No ST Deviation Greater than 0.5mm: (0) No BLAS Score: 4 ED Medical Decision Making - Lab Data Result diagrams: 02/05/22 14:29 02/05/22 14:29 Lab Results 02/05/22 02/05/22 02/05/22 Range/Units 14:29 14:29 14:29 WBC 9.5 (4.5-11.0) K/mm3 RBC 3.04 L (3.65-5.03) M/mm3 Hgb 9.5 L (10.1-14.3) gm/dl Hct 29.0 L (30.3-42.9) % MCV 96 (79-97) fl MCH 31 (28-32) pg MCHC 33 (30-34) % RDW 17.6 H (13.2-15.2) % Plt Count 112 L (140-440) K/mm3 Lymph % (Auto) 16.9 (13.4-35.0) % [place] % (Auto) 6.7 (0.0-7.3) % Eos % (Auto) 4.2 (0.0-4.3) % Baso % (Auto) 0.9 (0.0-1.8) % Lymph # (Auto) 1.6 (1.2-5.4) K/mm3 [place] # (Auto) 0.6 (0.0-0.8) K/mm3 Eos # (Auto) 0.4 (0.0-0.4) K/mm3 Baso # (Auto) 0.1 (0.0-0.1) K/mm3 Seg Neutrophils % 71.3 H (40.0-70.0) % Seg Neutrophils # 6.8 (1.8-7.7) K/mm3 PT (12.2-14.9) Sec. INR (0.87-1.13) APTT (24.2-36.6) Sec. Sodium 141 (137-145) mmol/L Potassium 3.2 L (3.6-5.0) mmol/L Chloride 100.1 (98-107) mmol/L Carbon Dioxide 29 (22-30) mmol/L Anion Gap 15 mmol/L BUN 17 (7-17) mg/dL Creatinine 2.2 H (0.6-1.2) mg/dL Estimated GFR 27 ml/min BUN/Creatinine Ratio 8 % Glucose 82 (65-100) mg/dL Calcium 8.6 (8.4-10.2) mg/dL Total Bilirubin 0.60 (0.1-1.2) mg/dL AST 16 (5-40) units/L ALT 15 (7-56) units/L Alkaline Phosphatase 84 (35-129) units/L Troponin T 0.013 (0.00-0.029) ng/mL NT-Pro-B Natriuret Pep 39796 H (0-900) pg/mL Total Protein 5.9 L (6.3-8.2) g/dL Albumin 4.1 (3.9-5) g/dL Albumin/Globulin Ratio 2.3 % 02/05/ Range/Units 14:29 WBC (4.5-11.0) K/mm3 RBC (3.65-5.03) M/mm3 Hgb (10.1-14.3) gm/dl Hct (30.3-42.9) % MCV (79-97) fl MCH (28-32) pg MCHC (30-34) % RDW (13.2-15.2) % Plt Count (140-440) K/mm3 Lymph % (Auto) (13.4-35.0) % [place] % (Auto) (0.0-7.3) % Eos % (Auto) (0.0-4.3) % Baso % (Auto) (0.0-1.8) % Lymph # (Auto) (1.2-5.4) K/mm3 [place] # (Auto) (0.0-0.8) K/mm3 Eos # (Auto) (0.0-0.4) K/mm3 Baso # (Auto) (0.0-0.1) K/mm3 Seg Neutrophils % (40.0-70.0) % Seg Neutrophils # (1.8-7.7) K/mm3 PT 15.9 H (12.2-14.9) Sec. INR 1.14 H (0.87-1.13) APTT 68.5 H* (24.2-36.6) Sec. Sodium (137-145) mmol/L Potassium (3.6-5.0) mmol/L Chloride (98-107) mmol/L Carbon Dioxide (22-30) mmol/L Anion Gap mmol/L BUN (7-17) mg/dL Creatinine (0.6-1.2) mg/dL Estimated GFR ml/min BUN/Creatinine Ratio % Glucose (65-100) mg/dL Calcium (8.4-10.2) mg/dL Total Bilirubin (0.1-1.2) mg/dL AST (5-40) units/L ALT (7-56) units/L Alkaline Phosphatase (35-129) units/L Troponin T (0.00-0.029) ng/mL NT-Pro-B Natriuret Pep (0-900) pg/mL Total Protein (6.3-8.2) g/dL Albumin (3.9-5) g/dL Albumin/Globulin Ratio % - EKG Data -: EKG Interpreted by [facility] - EKG Data 02/05/22 16:32 EKG shows atrial fibrillation with a rate of 110. There is a second-degree AV block type I. Q waves inferior. No ST segment elevations or depressions. EKG stated acute MD this was repeated and no change. Repeat was at 1500. Dr. Reddy with cardiology looked at the EKG and agrees that there is no STEMI present. - Radiology Data Ordering Physician: NCIOLE LARA MD Date of Service: 02/05/22 Procedure(s): XR chest 1V ap Accession Number(s): [id number] cc: NICOLE LARA MD Fluoro Time In Minutes: CHEST 1 VIEW INDICATION: chest pain. COMPARISON: 01/26/2022 FINDINGS: Support devices: Right IJ permacath and 2-lead pacemaker device remain in good position. Heart: Stable borderline heart size Lungs/Pleura: The lungs are generally clear with no evidence for infiltrate, pleural effusion or pneumothorax. Additional findings: None. IMPRESSION: No acute findings. No change since 01/26/2022. Signer Name: Clayton Snow Jr, MD Signed: 02/05/2022 2:38 PM Workstation Name: [id number] - Medical Decision Making Patient is a 66-year-old F Samoan female who was at dialysis and started having chest pain. Patient has been seen here multiple times for similar chest pain. Her last cardiac cath was approximately 2 years ago. Patient had a Lexiscan test which was negative for any significant deficits earlier this month in [place]. Patient having pain despite nitroglycerin was given a dose of morphine. Patient to be admitted to the hospital service as the patient's heart score is greater than 3. Critical Care Time: Yes (30) Critical care attestation.: If time is entered above; I have spent that time in minutes in the direct care of this critically ill patient, excluding procedure time. ED Disposition Clinical Impression: Acute chest pain, Afib, COPD exacerbation, CHF (congestive heart failure), End stage renal disease Disposition: ADMITTED INPATIENT Is pt being admited?: Yes Does the pt Need Aspirin: No Condition: Stable Instructions: Chest Pain (ED), Chronic Bronchitis (ED) Referrals: PRIMARY CARE, [Primary Care Provider] - 3-5 Days Time of Disposition: 16:38
[2022-02-05] MEDS ORDERED: MORPHINE 4 MG/1 ML INJ IV ONE ×2 (15:46→16:46)
[2022-02-05] MEDS ORDERED: ALBUTEROL 8.5 GM MDI INHALATION IH PRN (17:43)
[2022-02-05] MEDS ORDERED: oxyCODONE /ACETAMINOPHEN 5-325MG TAB PO PRN (17:43)
[2022-02-05] MEDS ORDERED: ONDANSETRON 4 MG/2 ML INJ IV PRN (17:45)
[2022-02-05] MEDS ORDERED: ACETAMINOPHEN 325 MG TAB PO PRN (17:45)
[2022-02-05] MEDS ORDERED: MORPHINE 2 MG/1 ML INJ IV PRN (17:45)
[2022-02-05] MEDS ORDERED: METOCLOPRAMIDE 10 MG/2 ML INJ IV PRN (17:45)
--- NOTE | 2022-02-05 17:56 | History and Physical Report ---
History of Present Illness Date of examination: 02/05/22 Date of admission: 02/05/2022 Chief complaint: Chest pain since dialysis session was over History of present illness: 56-year-old female with past medical history of end-stage renal disease, hypertension, coronary artery disease with stent placement X1 abdomen permanent pacemaker insertion comes in for chest pain after hemodialysis session. Patient recently moved 4 weeks ago from [facility]. Patient had AV fistula about 1 month ago and on. On the right upper extremity. Patient has extensive history of coronary artery disease and stent placement in the past. Smokes regularly but is able to give up. She is down to 1 cigarette/day. Chest pain is retrosternal and epigastric. Dull in character. About 6-7 on a scale of 1-10. Nonradiating. No nausea no vomiting no diaphoresis. No shortness Heart Score - HEART Score History: Slightly suspicious EKG: Non-specific Age: > 65 Risk factors: > 3 risk factors or hx of atherosclerotic disease Troponin: < normal limit HEART Score: 5 - EKG Read Time Time EKG Completed: 14:50 EKG Read Time: 14:52 - Past Medical History --Hypertension: Yes --CVA: Yes (right sided weakness) --Heart Attack/AMI: Yes (1 stent) --Congestive Heart Failure: Yes --Diabetes: Yes --Renal Disease: Yes (RENAL INSUFFICIENCY- stent left kidney) --Psychiatric Treatment: Yes (BIPOLAR/SCHIZOPHRENIA) --COPD: Yes --Additional medical history: HIGH CHOLESTEROL - Surgical History --Coronary Stent: Yes (x 2 in May 2015) --Additional Surgical History: stent placement x 2 in 2014, knee surgery 11/2017 - Social History --Smoking Status: Current Every Day Smoker --No alcohol or drugs -Family history --Htn - Medications Home Medications: Home Medications Medication Instructions Recorded Confirmed Last Taken Type Quetiapine Fumarate [Seroquel] 100 mg PO BID 08/01/17 01/26/22 04/10/20 History Albuterol Mdi (or & Nicu Only) 2 puff IH QID PRN #1 inha 12/22/17 01/26/22 04/10/20 Rx [ProAir HFA Inhaler] Metoprolol [Lopressor TAB] 50 mg PO BID #60 tablet 05/29/20 01/26/22 Unknown Rx amLODIPine 10 mg PO QDAY #30 tablet 05/29/20 01/26/22 Unknown Rx oxyCODONE /ACETAMINOPHEN [Percocet 1 tab PO Q6H PRN #20 tablet 05/29/20 01/26/22 Unknown Rx 5/325 mg] Amiodarone [Cordarone 200 MG TAB] 200 mg PO BID #60 tablet 01/22/22 01/26/22 Unknown Rx Apixaban [Eliquis] 5 mg PO BID 30 Days #60 tablet 01/22/22 01/26/22 Unknown Rx Aspirin EC [Halfprin EC] 81 mg PO QDAY #30 tablet 01/22/22 01/26/22 Unknown Rx Review of Systems ROS: Constitutional no weight loss or weight gain no fever or chills HEENT no sore throat no post nasal drip no diplopia Neck no neck stiffness no lymph gland enlargement Chest and lungs no shortness of breath cough or wheezing CVS chest pain since a.m. GI no nausea no vomiting no diarrhea Genitourinary system no dysuria no flank pain Musculoskeletal system no muscle pains no joint pains [employer] no syncope no seizures Skin no rash no itching Psychiatric no depression no homicidal or suicidal tendencies Hematologic no lymphedema or bruising Endocrine no polydipsia no polyuria no cold intolerance no heat intolerance Medications and Allergies Allergies Allergy/AdvReac Type Severity Reaction Status Date / Time apple AdvReac Hives Verified 02/05/22 14:00 shell fish Allergy Swelling Uncoded 01/22/22 10:35 Home Medications Medication Instructions Recorded Confirmed Last Taken Type RX: Quetiapine Fumarate [Seroquel] 100 mg PO BID 08/01/17 01/26/22 04/10/20 History RX: Albuterol Mdi (or & Nicu Only) 2 puff IH QID PRN #1 inha 12/22/17 01/26/22 04/10/20 Rx [ProAir HFA Inhaler] RX: Metoprolol [Lopressor TAB] 50 mg PO BID #60 tablet 05/29/20 01/26/22 Unknown Rx RX: amLODIPine 10 mg PO QDAY #30 tablet 05/29/20 01/26/22 Unknown Rx RX: oxyCODONE /ACETAMINOPHEN 1 tab PO Q6H PRN #20 tablet 05/29/20 01/26/22 Unknown Rx [Percocet 5/325 mg] RX: Amiodarone [Cordarone 200 MG 200 mg PO BID #60 tablet 01/22/22 01/26/22 Unknown Rx TAB] RX: Apixaban [Eliquis] 5 mg PO BID 30 Days #60 tablet 01/22/22 01/26/22 Unknown Rx RX: Aspirin EC [Halfprin EC] 81 mg PO QDAY #30 tablet 01/22/22 01/26/22 Unknown Rx Active Meds: Active Medications Nitroglycerin (Nitroglycerin 0.4 Mg Tab Subl) 0.4 mg SL .Q5MIN PRN PRN Reason: Chest Pain Exam - Constitutional Vitals: Temp Pulse Resp BP Pulse Ox 110 H 146/92 98 02/05/22 13:59 02/05/22 13:59 02/05/22 13:59 General appearance: Present: no acute distress, well-nourished - EENT Eyes: Present: PERRL ENT: hearing intact, clear oral mucosa - Neck Neck: Present: supple, normal ROM - Respiratory Respiratory effort: normal Respiratory: bilateral: CTA - Cardiovascular Heart rate: 78 Rhythm: irregularly irregular Heart Sounds: Present: S1 & S2. Absent: rub, click - Extremities Extremities: no ischemia, pulses intact, pulses symmetrical, No edema, abnormal (Right upper extremity AV fistula) Peripheral Pulses: within normal limits - Abdominal General gastrointestinal: Present: soft, non-tender, non-distended, normal bowel sounds Female genitourinary: Present: normal - Integumentary Integumentary: Present: clear, warm, dry - Musculoskeletal Musculoskeletal: gait normal, strength equal bilaterally - Psychiatric Psychiatric: appropriate mood/affect, intact judgment & insight - Neurologic Neurologic: CNII-XII intact, moves all extremities HEART Score - HEART Score EKG: Non-specific Age: > 65 Risk factors: > 3 risk factors or hx of atherosclerotic disease Troponin: Troponin T 0.013 ng/mL (0.00-0.029) 02/05/22 14:29 Troponin: < normal limit Results - Labs CBC & Chem 7: 02/05/22 14:29 02/06/22 05:21 Labs: Laboratory Last Values WBC 9.5 K/mm3 (4.5-11.0) 02/05/22 14: RBC 3.04 M/mm3 (3.65-5.03) L 02/05/22 14:29 Hgb 9.5 gm/dl (10.1-14.3) L 02/05/22 14: Hct 29.0 % (30.3-42.9) L 02/05/22 14: MCV 96 fl (79-97) 02/05/22 14: MCH 31 pg (28-32) 02/05/22 14: MCHC 33 % (30-34) 02/05/22 14: RDW 17.6 % (13.2-15.2) H 02/05/22 14: Plt Count 112 K/mm3 (140-440) L 02/05/22 14: Lymph % (Auto) 16.9 % (13.4-35.0) 02/05/22 14: [place] % (Auto) 6.7 % (0.0-7.3) 02/05/22 14: Eos % (Auto) 4.2 % (0.0-4.3) 02/05/22 14: Baso % (Auto) 0.9 % (0.0-1.8) 02/05/22 14: Lymph # (Auto) 1.6 K/mm3 (1.2-5.4) 02/05/22 14: [place] # (Auto) 0.6 K/mm3 (0.0-0.8) 02/05/22 14: Eos # (Auto) 0.4 K/mm3 (0.0-0.4) 02/05/22 14: Baso # (Auto) 0.1 K/mm3 (0.0-0.1) 02/05/22 14: Seg Neutrophils % 71.3 % (40.0-70.0) H 02/05/22 14: Seg Neutrophils # 6.8 K/mm3 (1.8-7.7) 02/05/22 14: PT 15.9 Sec. (12.2-14.9) H 02/05/22 14: INR 1.14 (0.87-1.13) H 02/05/22 14: APTT 68.5 Sec. (24.2-36.6) H* 02/05/22 14: D-Dimer 1128.70 ng/mlDDU (0-234) H 02/05/22 14:29 Sodium 141 mmol/L (137-145) 02/05/22 14:29 Potassium 3.2 mmol/L (3.6-5.0) L 02/05/22 14: Chloride 100.1 mmol/L (98-107) 02/05/22 14: Carbon Dioxide 29 mmol/L (22-30) 02/05/22 14: Anion Gap 15 mmol/L 02/05/22 14:29 BUN 17 mg/dL (7-17) 02/05/22 14:29 Creatinine 2.2 mg/dL (0.6-1.2) H 02/05/22 14:29 Estimated GFR 27 ml/min 02/05/22 14: BUN/Creatinine Ratio 8 % 02/05/22 14: Glucose 82 mg/dL (65-100) 02/05/22 14: Calcium 8.6 mg/dL (8.4-10.2) 02/05/22 14: Total Bilirubin 0.60 mg/dL (0.1-1.2) 02/05/22 14: AST 16 units/L (5-40) 02/05/22 14:29 ALT 15 units/L (7-56) 02/05/22 14:29 Alkaline Phosphatase 84 units/L (35-129) 02/05/22 14: Troponin T 0.013 ng/mL (0.00-0.029) 02/05/22 14: NT-Pro-B Natriuret Pep 27848 pg/mL (0-900) H 02/05/22 14:29 Total Protein 5.9 g/dL (6.3-8.2) L 02/05/22 14:29 Albumin 4.1 g/dL (3.9-5) 02/05/22 14:29 Albumin/Globulin Ratio 2.3 % 02/05/22 14:29 Short CBC 02/05/22 Range/Units 14:29 WBC 9.5 (4.5-11.0) K/mm3 Hgb 9.5 L (10.1-14.3) gm/dl Hct 29.0 L (30.3-42.9) % Plt Count 112 L (140-440) K/mm3 BMP 02/05/22 02/06/22 14:29 05:21 Sodium 141 141 Potassium 3.2 L 3.6 Chloride 100.1 101.1 Carbon Dioxide 29 30 BUN 17 20 H Creatinine 2.2 H 3.0 H Glucose 82 89 Calcium 8.6 8.4 Cardiac Enzymes 02/05/22 02/05/22 02/05/22 Range/Units 14:29 18:27 23:16 Troponin T 0.013 0.014 0.013 (0.00-0.029) ng/mL 02/06/22 Range/Units 05:21 Troponin T 0.015 (0.00-0.029) ng/mL Liver Function 02/05/22 Range/Units 14:29 Total Bilirubin 0.60 (0.1-1.2) mg/dL AST 16 (5-40) units/L ALT 15 (7-56) units/L Alkaline Phosphatase 84 (35-129) units/L Albumin 4.1 (3.9-5) g/dL - Imaging and Cardiology EKG: report reviewed (Sinus rhythm no acute ST-T wave changes) Assessment and Plan Advance Directives: Yes (Full code) VTE prophylaxis?: Chemical Plan of care discussed with patient/family: Yes - Patient Problems (1) Acute coronary syndrome Current Visit: Yes Status: Acute Plan to address problem: Serial troponins Possible discharge tomorrow in observation status Patient has multiple admissions in the last 6 weeks Old records reviewed Patient had a Lexiscan in March 2020 which was negative Cardiac work-up till now Echocardiogram for LV function ejection fraction Heart cath 07/2017; widely patent proximal to mid and mid to distal LAD stents no significant in-stent restenosis EF 50 to 55% Thallium stress test/12/2017; and 2019-- normal study EF 61% echo 04/2020; EF 50 to 55% Cardiology following If troponins are negative patient may be discharged with atypical chest pain on analgesics-NSAID/Tylenol Lexiscan was canceled Cardiology consult (2) End stage renal disease Current Visit: Yes Status: Chronic Plan to address problem: Patient had dialysis today No need for hemodialysis today Nephrology consult requested (3) CAD (coronary artery disease) Current Visit: No Status: Chronic Qualifiers: Coronary Disease-Associated Artery/Lesion type: [place] artery [place] vs. transplanted heart: [place] heart Associated angina: angina presence unspecified Plan to address problem: had sent X1 On Eliquis (4) Atrial fibrillation Current Visit: Yes Status: Chronic Qualifiers: Atrial fibrillation type: longstanding persistent Qualified Code(s): I48.11 - Longstanding persistent atrial fibrillation Plan to address problem: On Eliquis (5) Hypertension Current Visit: Yes Status: Chronic Qualifiers: Hypertension type: primary hypertension Qualified Code(s): I10 - Essential (primary) hypertension Plan to address problem: On antihypertensives and adjust medications (6) DVT prophylaxis Current Visit: Yes Status: Acute Plan to address problem: On Eliquis and GI prophylaxis (7) Advance care planning Current Visit: Yes Status: Acute Plan to address problem: Disease education disease education conducted, care plan discussed, diagnosis discussed, prognosis discussed. Patient is full code. Patient acknowledges understanding and agreement with care plan. +30 minutes. (8) Encounter for smoking cessation counseling Current Visit: Yes Status: Acute Plan to address problem: Patient was counseled about stopping smoking Was given alternatives of NicoDerm patch, Chantix and Wellbutrin Patient prefers NicoDerm patch Patient promises to stop smoking after his discharge
[2022-02-05] MEDS ORDERED: ALBUTEROL 2.5 MG/3 ML NEBU IH PRN (17:59)
[2022-02-05] MEDS ORDERED: HEPARIN 5,000 UNIT/1 ML VIAL SUB-Q SCH (22:00)
[2022-02-05] MEDS ORDERED: NON-FORMULARY EACH (Apixaban 5 MG Tablet) PO SCH (22:00)
[2022-02-05] MEDS ORDERED: FAMOTIDINE 20 MG/2 ML INJ IV SCH (22:00)
[2022-02-06] MEDS: METOPROLOL TARTRATE 50 MG TAB PO SCH ×2 (00:33→11:30)
[2022-02-06] MEDS: QUEtiapine 100 MG TAB PO SCH ×2 (00:33→11:30)
[2022-02-06] MEDS: AMIODARONE 200 MG TAB PO SCH ×2 (00:35→11:29)
[2022-02-06 05:49] LABS: Calcium 8.4 mg/dL (8.4-10.2)
[2022-02-06] MEDS: amLODIPine 10 MG TAB PO SCH ×2 (08:08→11:31)
[2022-02-06] MEDS: ASPIRIN EC 81 MG TAB PO SCH ×2 (08:08→11:29)
[2022-02-06] MEDS ORDERED: FAMOTIDINE 10 MG TAB PO SCH (10:00)
[2022-02-06] MEDS ORDERED: APIXABAN 2.5 MG TAB PO SCH (10:00)
--- NOTE | 2022-02-06 10:00 | Nuclear Medicine Report ---
NUCLEAR MEDICINE PERFUSION LUNG SCAN INDICATION / CLINICAL INFORMATION: possible PE. TECHNIQUE: 5.3 mCi of Tc-99m MAA were given by IV. COMPARISON: Chest radiograph dated 02/05/2022. FINDINGS: PERFUSION: There are at least 3 patchy nonsegmental defects in both lungs. ADDITIONAL FINDINGS: None. IMPRESSION: 1. Intermediate probability for pulmonary embolism. Signer Name: Shyam Smith MD Signed: 02/06/2022 9:55 AM Workstation Name: [id number]
[2022-02-06 11:28] VITALS: BP 140/74
--- NOTE | 2022-02-06 13:17 | Consultation ---
History of Present Illness Consult date: 02/06/22 Consult reason: chest pain History of present illness: Patient is a 66-year-old woman with end-stage renal disease on hemodialysis, chronic tobacco abuse, and coronary artery disease. She was referred from the dialysis unit for complaints of chest pain during dialysis. Chest pain was nonexertional, atypical, localized to the left chest and poorly characterized. In the hospital, and ECG was sinus rhythm with no acute ischemic changes. Serial troponin levels x4 were negative. Patient's coronary artery disease history is longstanding. She had single- vessel disease with stents in the mid and distal LAD. These LAD stents were widely patent on a cardiac catheterization done in 07/2017. Following that, serial thallium stress test, most recently done in this hospital less than 2 weeks ago was negative. Serial echocardiograms and invasive left ventricular function assessment have documented well preserved ejection fraction 50 to 55%. Patient is currently comfortable, looks and feels better, no acute distress. Past History Past Medical History: CAD, ESRD, hypertension, other (Tobacco abuse) Medications and Allergies Allergies Allergy/AdvReac Type Severity Reaction Status Date / Time apple AdvReac Hives Verified 02/05/22 14:00 shell fish Allergy Swelling Uncoded 01/22/22 10:35 Home Medications Medication Instructions Recorded Confirmed Last Taken Type Quetiapine Fumarate [Seroquel] 100 mg PO BID 08/01/17 02/06/22 02/05/22 22:00 History Albuterol Mdi (or & Nicu Only) 2 puff IH QID PRN #1 inha 12/22/17 02/06/22 04/10/20 Rx [ProAir HFA Inhaler] Metoprolol [Lopressor TAB] 50 mg PO BID #60 tablet 05/29/20 02/06/22 02/05/22 22:00 Rx Amiodarone [Cordarone 200 MG TAB] 200 mg PO BID #60 tablet 01/22/22 02/06/22 02/05/22 22:00 Rx Apixaban [Eliquis] 5 mg PO BID 30 Days #60 tablet 01/22/22 02/06/22 02/05/22 09:00 Rx Aspirin EC [Halfprin EC] 81 mg PO QDAY #30 tablet 01/22/22 02/06/22 02/05/22 09:00 Rx Hydralazine HCl 50 mg PO TID 02/06/22 02/06/22 02/05/22 09:00 History cloNIDine [Catapres] 0.1 mg PO BID 02/06/22 02/06/22 02/05/22 09:00 History Active Meds: Active Medications Acetaminophen (Acetaminophen 325 Mg Tab) 650 mg PO Q4H PRN PRN Reason: Pain MILD(1-3)/Fever >100.5/SILVA Albuterol (Albuterol 2.5 Mg/3 Ml Nebu) 2.5 mg IH QID PRN PRN Reason: Shortness Of Breath Amiodarone HCl (Amiodarone 200 Mg Tab) 200 mg PO BID [facility] Last Admin: 02/06/22 11:29 Dose: 200 mg Amlodipine Besylate (Amlodipine 10 Mg Tab) 10 mg PO QDAY [facility] Last Admin: 02/06/22 11:31 Dose: 10 mg Apixaban (Apixaban 2.5 Mg Tab) 2.5 mg PO Q12HR [facility]; Protocol Last Admin: 02/06/22 11:29 Dose: 2.5 mg Aspirin (Aspirin Ec 81 Mg Tab) 81 mg PO QDAY [facility] Last Admin: 02/06/22 11:29 Dose: 81 mg Famotidine (Famotidine 10 Mg Tab) 10 mg PO BID [facility] Last Admin: 02/06/22 11:30 Dose: 10 mg Metoclopramide HCl (Metoclopramide 10 Mg/2 Ml Inj) 10 mg IV Q6H PRN PRN Reason: Nausea And Vomiting Metoprolol Tartrate (Metoprolol Tartrate 50 Mg Tab) 50 mg PO BID [facility] Last Admin: 02/06/22 11:30 Dose: 50 mg Morphine Sulfate (Morphine 2 Mg/1 Ml Inj) 2 mg IV Q4H PRN PRN Reason: Pain, Moderate (4-6) Last Admin: 02/05/22 21:51 Dose: 2 mg Nitroglycerin (Nitroglycerin 0.4 Mg Tab Subl) 0.4 mg SL .Q5MIN PRN PRN Reason: Chest Pain Ondansetron HCl (Ondansetron 4 Mg/2 Ml Inj) 4 mg IV Q8H PRN PRN Reason: Nausea And Vomiting Oxycodone/Acetaminophen (Oxycodone /Acetaminophen 5-325mg Tab) 1 tab PO Q6H PRN PRN Reason: Pain, Moderate (4-6) Last Admin: 02/06/22 11:39 Dose: 1 tab Quetiapine Fumarate (Quetiapine 100 Mg Tab) 100 mg PO BID [facility] Last Admin: 02/06/22 11:30 Dose: 100 mg Sodium Chloride (Sodium Chloride 0.9% 10 Ml Flush Syringe) 10 ml IV BID [facility] Last Admin: 02/06/22 11:30 Dose: 10 ml Sodium Chloride (Sodium Chloride 0.9% 10 Ml Flush Syringe) 10 ml IV PRN PRN PRN Reason: LINE FLUSH Review of Systems Cardiovascular: chest pain, shortness of breath, no orthopnea, no palpitations, no rapid/irregular heart beat, no edema, no syncope, no lightheadedness Physical Examination Vital Signs Pulse BP Pulse Ox 110 H 146/92 98 02/05/22 13:59 02/05/22 13:59 02/05/22 13:59 General appearance: no acute distress HEENT: Positive: PERRL Neck: Positive: neck supple Cardiac: Positive: Reg Rate and Rhythm Lungs: Positive: Decreased Breath Sounds Neuro: Positive: Grossly Intact Abdomen: Positive: Soft Female genitourinary: deferred Skin: Positive: Clear Extremities: Absent: edema Results 02/05/22 14:29 02/06/22 05:21 Cardiac Enzymes 02/05/22 Range/Units 14:29 AST 16 (5-40) units/L Coagulation 02/05/22 Range/Units 14:29 PT 15.9 H (12.2-14.9) Sec. INR 1.14 H (0.87-1.13) APTT 68.5 H* (24.2-36.6) Sec. CBC 02/05/22 Range/Units 14:29 WBC 9.5 (4.5-11.0) K/mm3 RBC 3.04 L (3.65-5.03) M/mm3 Hgb 9.5 L (10.1-14.3) gm/dl Hct 29.0 L (30.3-42.9) % Plt Count 112 L (140-440) K/mm3 Lymph # (Auto) 1.6 (1.2-5.4) K/mm3 Crisp # (Auto) 0.6 (0.0-0.8) K/mm3 Eos # (Auto) 0.4 (0.0-0.4) K/mm3 Baso # (Auto) 0.1 (0.0-0.1) K/mm3 Comprehensive Metabolic Panel 02/05/22 02/06/22 Range/Units 14:29 05:21 Sodium 141 141 (137-145) mmol/L Potassium 3.2 L 3.6 (3.6-5.0) mmol/L Chloride 100.1 101.1 (98-107) mmol/L Carbon Dioxide 29 30 (22-30) mmol/L BUN 17 20 H (7-17) mg/dL Creatinine 2.2 H 3.0 H (0.6-1.2) mg/dL Glucose 82 89 (65-100) mg/dL Calcium 8.6 8.4 (8.4-10.2) mg/dL AST 16 (5-40) units/L ALT 15 (7-56) units/L Alkaline Phosphatase 84 (35-129) units/L Total Protein 5.9 L (6.3-8.2) g/dL Albumin 4.1 (3.9-5) g/dL EKG interpretations - Telemetry EKG Rhythm: Sinus Rhythm Assessment and Plan - Patient Problems (1) Chest pain Current Visit: Yes Status: Acute Plan to address problem: Patient presents with atypical chest pain, ECG and serial troponin levels are negative. It will be recalled that less than 2 weeks ago, she had a negative thallium stress test. No further cardiac work-up is indicated, on discharge patient should follow-up with her primary library services coordinator within 5 to 7 days.
--- NOTE | 2022-02-06 14:26 | Electrocardiograph Report ---
[facility] Test Date: 2022-02-05 Test Time: 14:50:46 Pat Name: TEETEE MARTINEZ Department: Room: A474 1 Gender: F Shake Cutter: SUPPORT GROUP MANAGER : 1955 Requested By: JO RIGGINS Order Number: [id number] Reading MD: Isis Steele Measurements Intervals [place] Rate: 110 P: ND: QRS: -24 QRSD: 90 T: 105 QT: 352 QTc: 484 Interpretive Statements Atrial flutter with variable AV conduction Left axis deviation Possible old anterior myocardial infarction Compared to ECG 01/27/2022 03:26:45 No significant change Electronically Signed On 02-06-2022 14:26:29 EDT by Isis Steele
--- NOTE | 2022-02-06 14:33 | Electrocardiograph Report ---
[facility] Test Date: 2022-02-06 Test Time: 08:09:18 Pat Name: TEETEE MARTINEZ Department: Room: A474 1 Gender: F Trial Management Associate: BRISEYDA : 1955 Requested By: JO RIGGINS Order Number: [id number] Reading MD: Isis Steele Measurements Intervals [place] Rate: 70 P: GA: 130 QRS: -11 QRSD: 98 T: 62 QT: 471 QTc: 508 Interpretive Statements Atrial-paced rhythm Prolonged QT interval Compared to ECG 02/05/2022 14:50:46 Atrial paced rhythm has replaced atrial flutter Electronically Signed On 02-06-2022 14:33:10 EDT by Isis Steele
--- NOTE | 2022-02-06 14:36 | Discharge Summary ---
Providers - Providers Date of Admission: 02/05/22 17:45 Date of discharge: 02/06/22 Attending physician: MIKEL KRAUSE 02/06/22 06:30 Consult to Physician [CONS] Routine Comment: Consulting Provider: DEV BROWN Physician Instructions: Reason For Exam: ACS/atypical chest pain Primary care physician: COMMERCIAL CONSTRUCTION PROJECT MANAGER Hospitalization Condition: Stable Hospital course: Patient is a 66-year-old woman with end-stage renal disease on hemodialysis, chronic tobacco abuse, and coronary artery disease with stents in the mid and distal LAD referred from the dialysis unit for complaints of chest pain during dialysis. Chest pain was nonexertional, atypical, localized to the left chest and poorly characterized. In the hospital, and ECG was sinus rhythm with no acute ischemic changes. Serial troponin levels x4 were negative. Her LAD stents were widely patent on a cardiac catheterization done in 07/2017. Following that, serial thallium stress test, most recently done in this hospital less than 2 weeks ago was negative. Serial echocardiograms and invasive left ventricular function assessment have documented well preserved ejection fraction 50 to 55%. Patient was further evaluated by parking control officer and recommended No further cardiac work-up, patient to follow-up with her primary parking control officer within 5 to 7 days. Patient was then discharged home in stable condition with outpatient follow-up. Disposition: 01 HOME / SELF CARE / HOMELESS Final Discharge Diagnosis (Prints w/discharge instructions): --Atypical chest pain, likely due to GERD. --end-stage renal disease on hemodialysis,. --chronic tobacco abuse,. -- coronary artery disease status post PCI Time spent for discharge: 34 minutes Core Measure Documentation - Palliative Care Palliative Care/ Comfort Measures: Not Applicable - Core Measures Any of the following diagnoses?: none Exam - Physical Exam Narrative exam: GENERAL: well-developed elderly -[place] female lying on bed appeared to be in no discomfort. HEENT: Normocephalic. Atraumatic. No conjunctival congestion or icterus. Patient has moist mucous membranes. NECK: Supple. Trachea midline. CHEST/LUNGS: Clear to auscultated bilaterally, breathing nonlabored. No wheezes crackles or rhonchi. HEART/CARDIOVASCULAR: Regular in rate and rhythm. S1 and S2 positive. ABDOMEN: Abdomen is soft, nontender. Patient has normal bowel sounds. SKIN: There is no rash. Warm and dry. NEURO: No focal motor deficit. Follows command. MUSCULOSKELETAL: No joint effusion or tenderness. EXTRIMITY: No edema, no cyanosis or clubbing. PSYCH: Cooperative. - Constitutional Vitals: Temp Pulse Resp BP Pulse Ox 97.4 F L 71 18 140/74 98 02/06/22 11:20 02/06/22 11:20 02/06/22 11:20 02/06/22 11:20 02/06/22 11:20 Plan Activity: advance as tolerated Weight Bearing Status: Weight Bear as Tolerated Diet: low fat, renal Additional Instructions: Follow-up with your parking control officer in 1 week Follow up with: PRIMARY CAREMD [Primary Care Provider] - 3-5 Days Prescriptions: Apixaban [Eliquis] 2.5 mg PO Q12HR #60 tablet
== END 2022-02-06 17:47 | disposition home or self-care (01) ==
LOC: ED 13:58 → INTOOBSV 17:45 → 4A 17:45
PROVIDERS: ADMIT Internal Medicine; ATTEND Internal Medicine
DX: I24.9 Acute ischemic heart disease, unspecified (principal); I13.2 Hypertensive heart and chronic kidney disease with heart failure and with stage 5 chronic kidney disease, or end stage renal disease; I50.32 Chronic diastolic (congestive) heart failure; N18.6 End stage renal disease; E11.22 Type 2 diabetes mellitus with diabetic chronic kidney disease; J44.1 Chronic obstructive pulmonary disease with (acute) exacerbation; I25.10 Atherosclerotic heart disease of native coronary artery without angina pectoris; I48.11 Longstanding persistent atrial fibrillation; E78.00 Pure hypercholesterolemia, unspecified; F17.210 Nicotine dependence, cigarettes, uncomplicated; Z99.2 Dependence on renal dialysis; Z86.73 Personal history of transient ischemic attack (TIA), and cerebral infarction without residual deficits; Z79.899 Other long term (current) drug therapy; Z98.890 Other specified postprocedural states; Z95.1 Presence of aortocoronary bypass graft; Z79.82 Long term (current) use of aspirin
CPT/HCPCS: 36415; 71045; 78580; 80048; 80053; 83880; 84484; 85025; 85379; 85610; 85730; 93005; 96374; 96375; 96376; 99291; 99406; A9540; G0378; J1644; J1940; J2270; J3490

== ENCOUNTER 2022-02-14 10:43 | Observation (INO) | payer MEDICARE ==
--- NOTE | 2022-02-14 10:59 | Emergency Department Report ---
ED Shortness of Breath HPI - General Chief Complaint: Dyspnea/Respdistress Stated Complaint: SOB Time Seen by Provider: 02/14/22 10:53 - History of Present Illness Initial Comments: 66-year-old female with a history of COPD and end-stage renal disease currently on dialysis 3 days a week who now presented with shortness of breath that started about 5 days ago. Patient miss her dialysis on Friday with the last dialysis last Friday. When asked patients that she was too sick to go to dialysis center. Patient denied any chest pain or palpitation. She reported swelling on her lower leg. Patient denied any fever or chills. Walking from one room to the other worsening shortness of breath. No other modifying or positive factors reported. - Related Data Home Medications Medication Instructions Recorded Confirmed Last Taken Quetiapine Fumarate [Seroquel] 100 mg PO BID 08/01/17 02/06/22 02/05/22 22:00 Hydralazine HCl 50 mg PO TID 02/06/22 02/06/22 02/05/22 09:00 cloNIDine [Catapres] 0.1 mg PO BID 02/06/22 02/06/22 02/05/22 09:00 Previous Rx's Medication Instructions Recorded Last Taken Type Albuterol Mdi (or & Nicu Only) 2 puff IH QID PRN #1 inha 12/22/17 04/10/20 Rx [ProAir HFA Inhaler] Metoprolol [Lopressor TAB] 50 mg PO BID #60 tablet 05/29/20 02/05/22 22:00 Rx Amiodarone [Cordarone 200 MG TAB] 200 mg PO BID #60 tablet 01/22/22 02/05/22 22:00 Rx Aspirin EC [Halfprin EC] 81 mg PO QDAY #30 tablet 01/22/22 02/05/22 09:00 Rx Apixaban [Eliquis] 2.5 mg PO Q12HR #60 tablet 02/06/22 Unknown Rx Allergies Allergy/AdvReac Type Severity Reaction Status Date / Time apple AdvReac Hives Verified 02/05/22 14:00 shell fish Allergy Swelling Uncoded 01/22/22 10:35 ED Review of Systems ROS: Stated complaint: SOB Other details as noted in HPI Comment: All other systems reviewed and negative Respiratory: shortness of breath, SOB with exertion, SOB at rest, wheezing ED Past Medical Hx - Past Medical History Hx Hypertension: Yes Hx CVA: Yes (right sided weakness) Hx Heart Attack/AMI: Yes (1 stent) Hx Congestive Heart Failure: Yes Hx Diabetes: Yes Hx Renal Disease: Yes (RENAL INSUFFICIENCY- stent left kidney) Hx Psychiatric Treatment: Yes (BIPOLAR/SCHIZOPHRENIA) Hx COPD: Yes Additional medical history: HIGH CHOLESTEROL - Surgical History Hx Coronary Stent: Yes Hx Pacemaker: Yes Additional Surgical History: stent placement x 2 in 2014, knee surgery 11/2017 - Social History Smoking Status: Current Every Day Smoker - Medications Home Medications: Home Medications Medication Instructions Recorded Confirmed Last Taken Type Quetiapine Fumarate [Seroquel] 100 mg PO BID 08/01/17 02/06/22 02/05/22 22:00 History Albuterol Mdi (or & Nicu Only) 2 puff IH QID PRN #1 inha 12/22/17 02/06/22 04/10/20 Rx [ProAir HFA Inhaler] Metoprolol [Lopressor TAB] 50 mg PO BID #60 tablet 05/29/20 02/06/22 02/05/22 22:00 Rx Amiodarone [Cordarone 200 MG TAB] 200 mg PO BID #60 tablet 01/22/22 02/06/22 02/05/22 22:00 Rx Aspirin EC [Halfprin EC] 81 mg PO QDAY #30 tablet 01/22/22 02/06/22 02/05/22 09:00 Rx Apixaban [Eliquis] 2.5 mg PO Q12HR #60 tablet 02/06/22 Unknown Rx Hydralazine HCl 50 mg PO TID 02/06/22 02/06/22 02/05/22 09:00 History cloNIDine [Catapres] 0.1 mg PO BID 02/06/22 02/06/22 02/05/22 09:00 History ED Physical Exam - General Limitations: No Limitations General appearance: in distress (Due to shortness of breath) - Head Head exam: Present: atraumatic, normal inspection - Eye Eye exam: Present: normal appearance Pupils: Present: normal accommodation - ENT ENT exam: Present: normal exam, normal orophraynx, mucous membranes moist - Neck Neck exam: Present: normal inspection - Respiratory Respiratory exam: Present: respiratory distress, wheezes - Cardiovascular Cardiovascular Exam: Present: regular rate, normal rhythm - GI/Abdominal GI/Abdominal exam: Present: soft, normal bowel sounds. Absent: tenderness - Extremities Exam Extremities exam: Present: pedal edema (+1 bilateral pitting edema) - Back Exam Back exam: Present: normal inspection, full ROM - Neurological Exam Neurological exam: Present: alert - Psychiatric Psychiatric exam: Present: normal affect, normal mood ED Course Vital Signs 02/14/22 02/14/22 02/14/22 10:49 11:06 11:15 Pulse Rate 110 H 117 H Pulse Rate [ 112 H Anterior Bilateral Throughout] Respiratory 18 21 Rate Respiratory 18 Rate [Anterior Bilateral Throughout] Blood Pressure 161/103 Blood Pressure 173/92 [Left] O2 Sat by Pulse 100 100 Oximetry - Reevaluation(s) Reevaluation #1: 02/14/22 13:17 Patient here with shortness of breath--after missing her dialysis with a history of COPD--she has been treated with Solu-Medrol, DuoNeb, and Lasix and reports feeling much better after the treatment. We will continue CPAP and consider admission-- Dr. Henning the hospitalist consulted who accepts the patient for further evaluation and treatment. Noted with anemia with hemoglobin of 9.2 and hematocrit of 28.6 which is likely as a result of chronic kidney failure, platelet of 139 and BUN 67/creatinine of 4.29--with a normal potassium at 4.9--this patient will be needing none urgent dialysis at this point. Dr. Henning agreed to have the patient admitted on telemetry to medical floor on BiPAP. ED Medical Decision Making - Lab Data Result diagrams: 02/14/22 12:11 02/14/22 12:11 - Medical Decision Making Patient presents with dyspnea to be in severe respiratory distress--with a history of COPD and end-stage renal disease--on recent 4 days of missing dialysis this could be as a result of COPD exacerbation all electrolyte abnormality due to missing dialysis--we will continue to evaluate and treat accordingly--initially given 125 mg of Solu-Medrol, DuoNeb and 40 mg of Lasix Critical Care Time: Yes (60 minutes) Critical care attestation.: If time is entered above; I have spent that time in minutes in the direct care of this critically ill patient, excluding procedure time. This patient came in with severe respiratory distress and was started on BiPAP--after noting tachycardia and severe bilateral expiratory wheezing--given Solu-Medrol plus DuoNeb for her likely COPD exacerbation, and also was given 40 mg of Lasix continue that patient missed dialysis for likely vascular congestion-- ED Disposition Clinical Impression: Anemia of chronic disease, Thrombocytopenia Dyspnea Qualifiers: Dyspnea type: dyspnea on exertion Qualified Code(s): R06.00 - Dyspnea, unspecified Acute on chronic renal failure Qualifiers: Acute renal failure type: unspecified Chronic kidney disease stage: unspecified stage Qualified Code(s): N17.9 - Acute kidney failure, unspecified; N18.9 - Chronic kidney disease, unspecified COPD (chronic obstructive pulmonary disease) Qualifiers: COPD type: COPD with acute exacerbation Qualified Code(s): J44.1 - Chronic obstructive pulmonary disease with (acute) exacerbation Disposition: 09 ADMITTED INPATIENT Is pt being admited?: Yes Does the pt Need Aspirin: No Condition: Stable Instructions: Chronic Obstructive Pulmonary Disease (ED) Referrals: PRIMARY CAREMD [Primary Care Provider] - 3-5 Days
[2022-02-14] MEDS ORDERED: IPRATROPIUM/ALBUTEROL SULFATE 3 ML AMPUL.NEB IH ONE ×2 (11:09→11:43)
[2022-02-14 11:34] LABS: ABG Base Excess -4.1 mmol/L (-2.0-3.0); ABG HCO3 21.1 mmol/L (20.0-26.0); ABG Methemoglobin 0.5 % (0.0-1.5); ABG Oxygen Saturation 98.5 % (95.0-99.0); ABG PCO2 39.1 mm Hg; ABG PH 7.35 pH Units (7.350-7.450)
[2022-02-14] MEDS ORDERED: POTASSIUM CHLORIDE ER 20 MEQ TAB PO ONE (11:43)
[2022-02-14 12:37] LABS: Basophils # (Auto) 0.1 K/mm3 (0.0-0.1); Basophils % (Auto) 0.8 % (0.0-1.8); Eosinophils # (Auto) 0.2 K/mm3 (0.0-0.4); Eosinophils % (Auto) 2.9 % (0.0-4.3); Hematocrit 28.6 % (30.3-42.9); Hemoglobin 9.2 gm/dl (10.1-14.3); Lymphocytes # (Auto) 0.7 K/mm3 (1.2-5.4); Lymphocytes % (Auto) 9.1 % (13.4-35.0); Mean Corpuscular HGB Conc 32 % (30-34); Mean Corpuscular Volume 99 fl (79-97); Monocytes # (Auto) 0.6 K/mm3 (0.0-0.8); Monocytes % (Auto) 8.5 % (0.0-7.3); Platelet Count 139 K/mm3 (140-440)
[2022-02-14 12:57] LABS: Alanine Aminotransferase 17 units/L (7-56); Albumin 3.7 g/dL (3.9-5); Blood Urea Nitrogen 67 mg/dL (7-17); Calcium 7.8 mg/dL (8.4-10.2); Hemolysis Index 26
[2022-02-14 12:58] LABS: BUN/Creatinine Ratio 16
[2022-02-14] MEDS ORDERED: methylPREDNISolone Sod Succinate 125 MG/2 ML INJ IV ONE (13:05)
[2022-02-14] MEDS ORDERED: FUROSEMIDE 20 MG/2 ML INJ IV ONE (13:06)
[2022-02-14] MEDS ORDERED: MORPHINE 2 MG/1 ML INJ IV ONE (13:06)
--- NOTE | 2022-02-14 13:28 | XRay Report ---
CHEST 1 VIEW 02/14/2022 1:10 PM INDICATION / CLINICAL INFORMATION: dyspnea. COMPARISON: 02/06/2020 FINDINGS: SUPPORT DEVICES: Stable, satisfactory device positioning. HEART / MEDIASTINUM: Stable. LUNGS / PLEURA: Bilateral mild interstitial opacities likely reflect underlying edema. Trace right pl eural effusion. No pneumothorax. ADDITIONAL FINDINGS: No significant additional findings. IMPRESSION: 1. Bilateral interstitial opacities favor mild pulmonary edema. Trace right pleural effusion. Signer Name: Moreno Overton MD Signed: 02/14/2022 1:24 PM Workstation Name: [id number]
[2022-02-14] MEDS ORDERED: MORPHINE 2 MG/1 ML INJ IV PRN (13:53)
[2022-02-14] MEDS ORDERED: oxyCODONE /ACETAMINOPHEN 5-325MG TAB PO PRN (13:53)
[2022-02-14] MEDS ORDERED: ACETAMINOPHEN 325 MG TAB PO PRN (13:53)
[2022-02-14] MEDS ORDERED: ONDANSETRON 4 MG/2 ML INJ IV PRN (13:53)
--- NOTE | 2022-02-14 13:53 | History and Physical Report ---
History of Present Illness Date of examination: 02/14/22 Date of admission: 02/14/2022 Chief complaint: Increasing shortness of breath for 2 days History of present illness: 66 female with history of end-stage renal disease, COPD and hypertension recently discharged on February 06, 2022 comes in for increasing shortness of breath. Did not go for hemodialysis sessions in the last 2 times. Patient acknowledges to noncompliance with medications. Patient increasingly short of breath and orthopneic. When asked why she is noncompliant--she is very nonchalant. No fever or chills. Exacerbating factor is not taking medications and not attending hemodialysis. Patient has class III NYHA symptoms. Discharge summary from February 06, 2022 Patient is a 66-year-old woman with end-stage renal disease on hemodialysis, chronic tobacco abuse, and coronary artery disease with stents in the mid and distal LAD referred from the dialysis unit for complaints of chest pain during dialysis. Chest pain was nonexertional, atypical, localized to the left chest and poorly characterized. In the hospital, and ECG was sinus rhythm with no acute ischemic changes. Serial troponin levels x4 were negative. Her LAD stents were widely patent on a cardiac catheterization done in 07/2017. Following that, serial thallium stress test, most recently done in this hospital less than 2 weeks ago was negative. Serial echocardiograms and invasive left ventricular function assessment have documented well preserved ejection fraction 50 to 55%. Patient was further evaluated by night warehouse manager and recommended No further cardiac work-up, patient to follow-up with her primary night warehouse manager within 5 to 7 days. Patient was then discharged home in stable condition with outpatient follow-up. Disposition: 01 HOME / SELF CARE / HOMELESS Final Discharge Diagnosis (Prints w/discharge instructions): --Atypical chest pain, likely due to GERD. --end-stage renal disease on hemodialysis,. --chr onic tobacco abuse,. -- coronary artery disease status post PCI Time spent for discharge: 34 minutes - Past Medical History --Hypertension: Yes --CVA: Yes (right sided weakness) --Heart Attack/AMI: Yes (1 stent) --Congestive Heart Failure: Yes --Diabetes: Yes --Renal Disease: Yes (RENAL INSUFFICIENCY- stent left kidney) --Psychiatric Treatment: Yes (BIPOLAR/SCHIZOPHRENIA) --COPD: Yes --Additional medical history: HIGH CHOLESTEROL - Surgical History Hx Coronary Stent: Yes Hx Pacemaker: Yes Additional Surgical History: stent placement x 2 in 2014, knee surgery 11/2017 - Social History Smoking Status: Current Every Day Smoker - Medications Home Medications: Home Medications Medication Instructions Recorded Confirmed Last Taken Type Quetiapine Fumarate [Seroquel] 100 mg PO BID 08/01/17 02/06/22 02/05/22 22:00 History Albuterol Mdi (or & Nicu Only) 2 puff IH QID PRN #1 inha 12/22/17 02/06/22 04/10/20 Rx [ProAir HFA Inhaler] Metoprolol [Lopressor TAB] 50 mg PO BID #60 tablet 05/29/20 02/06/22 02/05/22 22:00 Rx Amiodarone [Cordarone 200 MG TAB] 200 mg PO BID #60 tablet 01/22/22 02/06/22 02/05/22 22:00 Rx Aspirin EC [Halfprin EC] 81 mg PO QDAY #30 tablet 01/22/22 02/06/22 02/05/22 09:00 Rx Apixaban [Eliquis] 2.5 mg PO Q12HR #60 tablet 02/06/22 Unknown Rx Hydralazine HCl 50 mg PO TID 02/06/22 02/06/22 02/05/22 09:00 History cloNIDine [Catapres] 0.1 mg PO BID 02/06/22 02/06/22 02/05/22 09:00 History Review of Systems ROS: Stated complaint: SOB Other details as noted in HPI Comment: All other systems reviewed and negative Respiratory: shortness of breath, SOB with exertion, SOB at rest, wheezing Medications and Allergies Allergies Allergy/AdvReac Type Severity Reaction Status Date / Time apple AdvReac Hives Verified 02/05/22 14:00 shell fish Allergy Swelling Uncoded 01/22/22 10:35 Home Medications Medication Instructions Recorded Confirmed Last Taken Type Quetiapine Fumarate [Seroquel] 100 mg PO BID 08/01/17 02/06/22 02/05/22 22:00 History Albuterol Mdi (or & Nicu Only) 2 puff IH QID PRN #1 inha 12/22/17 02/06/22 04/10/20 Rx [ProAir HFA Inhaler] Metoprolol [Lopressor TAB] 50 mg PO BID #60 tablet 05/29/20 02/06/22 02/05/22 22:00 Rx Amiodarone [Cordarone 200 MG TAB] 200 mg PO BID #60 tablet 01/22/22 02/06/22 02/05/22 22:00 Rx Aspirin EC [Halfprin EC] 81 mg PO QDAY #30 tablet 01/22/22 02/06/22 02/05/22 09:00 Rx Apixaban [Eliquis] 2.5 mg PO Q12HR #60 tablet 02/06/22 Unknown Rx Hydralazine HCl 50 mg PO TID 02/06/22 02/06/22 02/05/22 09:00 History cloNIDine [Catapres] 0.1 mg PO BID 02/06/22 02/06/22 02/05/22 09:00 History Exam - Constitutional Vitals: Temp Pulse Resp BP Pulse Ox 112 H 18 173/92 100 02/14/22 11:15 02/14/22 11:15 02/14/22 11:06 02/14/22 11:06 General appearance: Present: severe distress, well-nourished - EENT Eyes: Present: PERRL ENT: hearing intact, clear oral mucosa - Neck Neck: Present: supple, normal ROM - Respiratory Respiratory effort: normal Respiratory: bilateral: CTA - Cardiovascular Heart rate: 98 Rhythm: regularly irregular Heart Sounds: Present: S1 & S2. Absent: rub, click - Extremities Extremities: no ischemia, pulses intact, pulses symmetrical, No edema Peripheral Pulses: within normal limits - Abdominal General gastrointestinal: Present: soft, non-tender, non-distended, normal bowel sounds Female genitourinary: Present: normal - Integumentary Integumentary: Present: clear, warm, dry - Musculoskeletal Musculoskeletal: gait normal, strength equal bilaterally - Psychiatric Psychiatric: appropriate mood/affect, intact judgment & insight - Neurologic Neurologic: CNII-XII intact, moves all extremities - Allied Health Allied health notes reviewed: nursing, case management HEART Score - HEART Score History: Moderately suspicious Age: > 65 Risk factors: > 3 risk factors or hx of atherosclerotic disease Troponin: Troponin T < 0.010 ng/mL (0.00-0.029) 02/14/22 12:11 Troponin: 1-3x normal limit - Critical Actions Critical Actions: 4-6 pts:12-16.6% risk of adverse cardiac event. Should be admitted Results - Labs CBC & Chem 7: 02/14/22 12:11 02/14/22 12:11 Labs: Laboratory Last Values WBC 7.4 K/mm3 (4.5-11.0) 02/14/22 12:11 RBC 2.90 M/mm3 (3.65-5.03) L 02/14/22 12:11 Hgb 9.2 gm/dl (10.1-14.3) L 02/14/22 12:11 Hct 28.6 % (30.3-42.9) L 02/14/22 12:11 MCV 99 fl (79-97) H 02/14/22 12:11 MCH 32 pg (28-32) 02/14/22 12:11 MCHC 32 % (30-34) 02/14/22 12:11 RDW 19.0 % (13.2-15.2) H 02/14/22 12:11 Plt Count 139 K/mm3 (140-440) L 02/14/22 12:11 Lymph % (Auto) 9.1 % (13.4-35.0) L 02/14/22 12:11 Titus % (Auto) 8.5 % (0.0-7.3) H 02/14/22 12:11 Eos % (Auto) 2.9 % (0.0-4.3) 02/14/22 12:11 Baso % (Auto) 0.8 % (0.0-1.8) 02/14/22 12:11 Lymph # (Auto) 0.7 K/mm3 (1.2-5.4) L 02/14/22 12:11 Titus # (Auto) 0.6 K/mm3 (0.0-0.8) 02/14/22 12:11 Eos # (Auto) 0.2 K/mm3 (0.0-0.4) 02/14/22 12:11 Baso # (Auto) 0.1 K/mm3 (0.0-0.1) 02/14/22 12:11 Seg Neutrophils % 78.7 % (40.0-70.0) H 02/14/22 12:11 Seg Neutrophils # 5.9 K/mm3 (1.8-7.7) 02/14/22 12:11 ABG pH 7.350 pH Units (7.350-7.450) 02/14/22 11:20 ABG pCO2 39.1 mm Hg 02/14/22 11:20 ABG pO2 131.0 mm Hg (80.0-90.0) H 02/14/22 11:20 ABG HCO3 21.1 mmol/L (20.0-26.0) 02/14/22 11:20 ABG O2 Saturation 98.5 % (95.0-99.0) 02/14/22 11:20 ABG O2 Content 13.7 (0.0-44) 02/14/22 11:20 ABG Base Excess -4.1 mmol/L (-2.0-3.0) L 02/14/22 11:20 ABG Hemoglobin 10.0 gm/dl (12.0-16.0) L 02/14/22 11:20 ABG Carboxyhemoglobin 2.4 % (0.0-5.0) 02/14/22 11:20 ABG Methemoglobin 0.5 % (0.0-1.5) 02/14/22 11:20 Oxyhemoglobin 95.7 % (95.0-99.0) 02/14/22 11:20 FiO2 35 % 02/14/22 11:20 Sodium 141 mmol/L (137-145) 02/14/22 12:11 Potassium 4.9 mmol/L (3.6-5.0) 02/14/22 12:11 Chloride 108.0 mmol/L (98-107) H 02/14/22 12:11 Carbon Dioxide 20 mmol/L (22-30) L 02/14/22 12:11 Anion Gap 18 mmol/L 02/14/22 12:11 BUN 67 mg/dL (7-17) H 02/14/22 12:11 Creatinine 4.2 mg/dL (0.6-1.2) H 02/14/22 12:11 Estimated GFR 13 ml/min 02/14/22 12:11 BUN/Creatinine Ratio 16 % 02/14/22 12:11 Glucose 93 mg/dL (65-100) 02/14/22 12:11 Calcium 7.8 mg/dL (8.4-10.2) L 02/14/22 12:11 Total Bilirubin 0.60 mg/dL (0.1-1.2) 02/14/22 12:11 AST 21 units/L (5-40) 02/14/22 12:11 ALT 17 units/L (7-56) 02/14/22 12:11 Alkaline Phosphatase 77 units/L (35-129) 02/14/22 12:11 Troponin T < 0.010 ng/mL (0.00-0.029) 02/14/22 12:11 Total Protein 5.8 g/dL (6.3-8.2) L 02/14/22 12:11 Albumin 3.7 g/dL (3.9-5) L 02/14/22 12:11 Albumin/Globulin Ratio 1.8 % 02/14/22 12:11 Short CBC 02/14/22 02/14/22 02/14/22 Range/Units 11:20 12:11 12:11 WBC 7.4 (4.5-11.0) K/mm3 RBC 2.90 L (3.65-5.03) M/mm3 Hgb 9.2 L (10.1-14.3) gm/dl Hct 28.6 L (30.3-42.9) % MCV 99 H (79-97) fl MCH 32 (28-32) pg MCHC 32 (30-34) % RDW 19.0 H (13.2-15.2) % Plt Count 139 L (140-440) K/mm3 Lymph % (Auto) 9.1 L (13.4-35.0) % [place]itus % (Auto) 8.5 H (0.0-7.3) % Eos % (Auto) 2.9 (0.0-4.3) % Baso % (Auto) 0.8 (0.0-1.8) % Lymph # (Auto) 0.7 L (1.2-5.4) K/mm3 [place] # (Auto) 0.6 (0.0-0.8) K/mm3 Eos # (Auto) 0.2 (0.0-0.4) K/mm3 Baso # (Auto) 0.1 (0.0-0.1) K/mm3 Seg Neutrophils % 78.7 H (40.0-70.0) % Seg Neutrophils # 5.9 (1.8-7.7) K/mm3 ABG pH 7.350 (7.350-7.450) pH Units ABG pCO2 39.1 mm Hg ABG pO2 131.0 H (80.0-90.0) mm Hg ABG HCO3 21.1 (20.0-26.0) mmol/L ABG O2 Saturation 98.5 (95.0-99.0) % ABG O2 Content 13.7 (0.0-44) ABG Base Excess -4.1 L (-2.0-3.0) mmol/L ABG Hemoglobin 10.0 L (12.0-16.0) gm/dl ABG Carboxyhemoglobin 2.4 (0.0-5.0) % ABG Methemoglobin 0.5 (0.0-1.5) % Oxyhemoglobin 95.7 (95.0-99.0) % FiO2 35 % Sodium 141 (137-145) mmol/L Potassium 4.9 (3.6-5.0) mmol/L Chloride 108.0 H (98-107) mmol/L Carbon Dioxide 20 L (22-30) mmol/L Anion Gap 18 mmol/L BUN 67 H (7-17) mg/dL Creatinine 4.2 H (0.6-1.2) mg/dL Estimated GFR 13 ml/min BUN/Creatinine Ratio 16 % Glucose 93 (65-100) mg/dL Calcium 7.8 L (8.4-10.2) mg/dL Total Bilirubin 0.60 (0.1-1.2) mg/dL AST 21 (5-40) units/L ALT 17 (7-56) units/L Alkaline Phosphatase 77 (35-129) units/L Troponin T < 0.010 (0.00-0.029) ng/mL Total Protein 5.8 L (6.3-8.2) g/dL Albumin 3.7 L (3.9-5) g/dL Albumin/Globulin Ratio 1.8 % BMP 02/14/22 12:11 Sodium 141 Potassium 4.9 Chloride 108.0 H Carbon Dioxide 20 L BUN 67 H Creatinine 4.2 H Glucose 93 Calcium 7.8 L Cardiac Enzymes 02/14/22 Range/Units 12:11 Troponin T < 0.010 (0.00-0.029) ng/mL Liver Function 02/14/22 Range/Units 12:11 Total Bilirubin 0.60 (0.1-1.2) mg/dL AST 21 (5-40) units/L ALT 17 (7-56) units/L Alkaline Phosphatase 77 (35-129) units/L Albumin 3.7 L (3.9-5) g/dL - Imaging and Cardiology EKG: report reviewed Chest x-ray: report reviewed Imaging and Cardiology: Chest x-ray Bilateral interstitial opacities favoring mild pulmonary edema. Trace right pleural effusion. Assessment and Plan Advance Directives: Yes (Full code) VTE prophylaxis?: Chemical Plan of care discussed with patient/family: Yes - Patient Problems (1) Acute respiratory failure with hypoxia Current Visit: Yes Status: Acute Plan to address problem: Patient is hypoxic in the emergency room at the time of admission with oxygen saturations of about 86% Noncompliant with her hemodialysis Volume overload Needs emergent hemodialysis Nephrology consulted (2) End-stage renal disease on hemodialysis Current Visit: Yes Status: Acute Plan to address problem: Emergent hemodialysis Nephrology consulted Noncompliance (3) CAD (coronary artery disease) Current Visit: No Status: Chronic Qualifiers: Coronary Disease-Associated Artery/Lesion type: [place] artery [place] vs. transplanted heart: [place] heart Associated angina: with stable angina Qualified Code(s): I25.118 - Atherosclerotic heart disease of [place] coronary artery with other forms of angina pectoris Plan to address problem: Continue isosorbide and aspirin (4) CHF (congestive heart failure) Current Visit: No Status: Chronic Qualifiers: Heart failure type: combined systolic and diastolic Plan to address problem: Needs emergent hemodialysis for volume overload (5) HLD (hyperlipidemia) Current Visit: No Status: Chronic Qualifiers: Hyperlipidemia type: mixed hyperlipidemia Qualified Code(s): E78.2 - Mixed hyperlipidemia Plan to address problem: Continue statins (6) Hypertension Current Visit: No Status: Chronic Qualifiers: Hypertension type: primary hypertension Qualified Code(s): I10 - Essential (primary) hypertension Plan to address problem: Continue antihypertensives and adjust medications (7) Atrial fibrillation Current Visit: Yes Status: Chronic Qualifiers: Atrial fibrillation type: persistent (not longstanding) Qualified Code(s): I48.19 - Other persistent atrial fibrillation; I48.1 - Persistent atrial fibrillation Plan to address problem: On Eliquis and amiodarone (8) Malnutrition Current Visit: Yes Status: Chronic Qualifiers: Protein-calorie malnutrition severity: mild Plan to address problem: Dietary supplements initiated (9) DVT prophylaxis Current Visit: No Status: Acute Plan to address problem: On anticoagulation GI prophylaxis (10) Advance care planning Current Visit: No Status: Acute Plan to address problem: Disease education conducted, care plan discussed, diagnosis discussed, prognosis discussed. Patient is full code. Patient acknowledges understanding and agreement with care plan +30 minutes.
[2022-02-14] MEDS ORDERED: ALBUTEROL 8.5 GM MDI INHALATION IH PRN (13:56)
[2022-02-14] MEDS ORDERED: NON-FORMULARY EACH (Apixaban 2.5 MG Tablet) PO SCH (14:00)
[2022-02-14] MEDS ORDERED: NON-FORMULARY EACH (Hydralazine Hcl [Hydralazine Hcl] 50 MG Tablet) PO SCH (14:00)
[2022-02-14] MEDS ORDERED: ALBUTEROL 2.5 MG/3 ML NEBU IH PRN (14:11)
[2022-02-14] MEDS: cloNIDine 0.1 MG TAB PO SCH ×2 (19:47→21:28)
[2022-02-14] MEDS: QUEtiapine 100 MG TAB PO SCH ×2 (19:48→21:30)
[2022-02-14] MEDS: ASPIRIN EC 81 MG TAB PO SCH (19:48)
[2022-02-14] MEDS: HEPARIN 5,000 UNIT/1 ML VIAL SUB-Q SCH ×2 (19:48→21:30)
[2022-02-14] MEDS: AMIODARONE 200 MG TAB PO SCH ×2 (19:48→21:30)
[2022-02-14] MEDS: FAMOTIDINE 10 MG TAB PO SCH ×2 (19:49→21:29)
[2022-02-14] MEDS: hydrALAZINE 25 MG TAB PO SCH (21:29)
[2022-02-14] MEDS: METOPROLOL TARTRATE 50 MG TAB PO SCH (21:29)
[2022-02-15] MEDS ORDERED: HEPARIN 10,000 UNITS/10 ML VIAL IV PRN (00:47)
[2022-02-15] MEDS ORDERED: SODIUM CHLORIDE 0.9% 100 ML IV PRN (00:47)
[2022-02-15] MEDS ORDERED: EPOETIN ALFA-EPBX 10,000 UNIT/1 ML VIAL SUB-Q PRN (00:47)
[2022-02-15 06:49] LABS: Calcium 8.6 mg/dL (8.4-10.2)
[2022-02-15] MEDS ORDERED: CALC GLUCONATE 1GM/NS 100 ML 1 GM/100 ML BAG IV ONE ×2 (07:53→08:30)
[2022-02-15] MEDS ORDERED: CALCIUM GLUCONATE 1,000 MG in SODIUM CHLORIDE 0.9% 100 ML IV ONE (08:00)
[2022-02-15] MEDS ORDERED: INSULIN REGULAR, HUMAN 100 UNITS/1 ML IV SCH (08:00)
[2022-02-15] MEDS ORDERED: DEXTROSE 50% IN WATER (25GM) 50 ML SYRINGE IV SCH (08:00)
[2022-02-15] MEDS: ASPIRIN EC 81 MG TAB PO SCH (09:04)
[2022-02-15] MEDS: AMIODARONE 200 MG TAB PO SCH (09:04)
[2022-02-15] MEDS: HEPARIN 5,000 UNIT/1 ML VIAL SUB-Q SCH (09:04)
[2022-02-15] MEDS: FAMOTIDINE 10 MG TAB PO SCH (09:04)
[2022-02-15] MEDS: QUEtiapine 100 MG TAB PO SCH (09:04)
[2022-02-15] MEDS: METOPROLOL TARTRATE 50 MG TAB PO SCH (09:32)
[2022-02-15] MEDS: hydrALAZINE 25 MG TAB PO SCH ×2 (09:32→14:36)
[2022-02-15] MEDS: cloNIDine 0.1 MG TAB PO SCH (09:38)
--- NOTE | 2022-02-15 09:52 | Consultation ---
History of Present Illness - Reason for Consult Consult date: 02/15/22 end stage renal disease, hyperkalemia Medications and Allergies Allergies Allergy/AdvReac Type Severity Reaction Status Date / Time apple AdvReac Hives Verified 02/05/22 14:00 shell fish Allergy Swelling Uncoded 01/22/22 10:35 Home Medications Medication Instructions Recorded Confirmed Last Taken Type Quetiapine Fumarate [Seroquel] 100 mg PO BID 08/01/17 02/06/22 02/05/22 22:00 History Albuterol Mdi (or & Nicu Only) 2 puff IH QID PRN #1 inha 12/22/17 02/06/22 04/10/20 Rx [ProAir HFA Inhaler] Metoprolol [Lopressor TAB] 50 mg PO BID #60 tablet 05/29/20 02/06/22 02/05/22 22:00 Rx Amiodarone [Cordarone 200 MG TAB] 200 mg PO BID #60 tablet 01/22/22 02/06/22 02/05/22 22:00 Rx Aspirin EC [Halfprin EC] 81 mg PO QDAY #30 tablet 01/22/22 02/06/22 02/05/22 09:00 Rx Apixaban [Eliquis] 2.5 mg PO Q12HR #60 tablet 02/06/22 Unknown Rx Hydralazine HCl 50 mg PO TID 02/06/22 02/06/22 02/05/22 09:00 History cloNIDine [Catapres] 0.1 mg PO BID 02/06/22 02/06/22 02/05/22 09:00 History Active Meds: Active Medications Acetaminophen (Acetaminophen 325 Mg Tab) 650 mg PO Q4H PRN PRN Reason: Pain MILD(1-3)/Fever >100.5/SILVA Albuterol (Albuterol 2.5 Mg/3 Ml Nebu) 2.5 mg IH Q4HRT PRN PRN Reason: Shortness Of Breath Last Admin: 02/14/22 16:40 Dose: 2.5 mg Amiodarone HCl (Amiodarone 200 Mg Tab) 200 mg PO BID [facility] Last Admin: 02/15/22 09:04 Dose: 200 mg Aspirin (Aspirin Ec 81 Mg Tab) 81 mg PO QDAY [facility] Last Admin: 02/15/22 09:04 Dose: 81 mg Clonidine HCl (Clonidine 0.1 Mg Tab) 0.1 mg PO BID [facility] Last Admin: 02/15/22 09:38 Dose: Not Given Dextrose (Dextrose 50% In Water (25gm) 50 Ml Syringe) 50 ml IV ONCE@0800 [facility]; Protocol Stop: 02/15/22 11:00 Last Admin: 02/15/22 09:31 Dose: Not Given Epoetin Heladio-epbx (Epoetin Heladio-Epbx 10,000 Unit/1 Ml Vial) 10,000 unit SUB-Q KARLENE PRN PRN Reason: hemodialysis Famotidine (Famotidine 10 Mg Tab) 10 mg PO BID [facility] Last Admin: 02/15/22 09:04 Dose: 10 mg Heparin Sodium (Porcine) (Heparin 5,000 Unit/1 Ml Vial) 5,000 unit SUB-Q Q12HR [facility] Last Admin: 02/15/22 09:04 Dose: 5,000 unit Heparin Sodium (Porcine) (Heparin 10,000 Units/10 Ml Vial) 3,000 unit IV KARLENE PRN PRN Reason: hemodialysis Hydralazine HCl (Hydralazine 25 Mg Tab) 50 mg PO TID [facility] Last Admin: 02/15/22 09:32 Dose: Not Given Sodium Chloride (Nacl 0.9%) 100 mls @ 999 mls/hr IV KARLENE PRN PRN Reason: Hypotension Insulin Human Regular (Insulin Regular, Human 100 Units/1 Ml) 5 units IV ONCE@0800 [facility] Stop: 02/15/22 12:00 Last Admin: 02/15/22 09:04 Dose: Not Given Metoprolol Tartrate (Metoprolol Tartrate 50 Mg Tab) 50 mg PO BID [facility] Last Admin: 02/15/22 09:32 Dose: Not Given Morphine Sulfate (Morphine 2 Mg/1 Ml Inj) 2 mg IV Q4H PRN PRN Reason: Pain, Moderate (4-6) Last Admin: 02/14/22 21:31 Dose: 2 mg Ondansetron HCl (Ondansetron 4 Mg/2 Ml Inj) 4 mg IV Q8H PRN PRN Reason: Nausea And Vomiting Oxycodone/Acetaminophen (Oxycodone /Acetaminophen 5-325mg Tab) 1 tab PO Q6H PRN PRN Reason: Pain, Moderate (4-6) Quetiapine Fumarate (Quetiapine 100 Mg Tab) 100 mg PO BID [facility] Last Admin: 02/15/22 09:04 Dose: 100 mg Sodium Chloride (Sodium Chloride 0.9% 10 Ml Flush Syringe) 10 ml IV BID [facility] Last Admin: 02/15/22 09:37 Dose: 10 ml Sodium Chloride (Sodium Chloride 0.9% 10 Ml Flush Syringe) 10 ml IV PRN PRN PRN Reason: LINE FLUSH Exam - Vital Signs Vital signs: Vital Signs Pulse Resp BP Pulse Ox 110 H 18 161/103 100 02/14/22 10:49 02/14/22 10:49 02/14/22 10:49 02/14/22 10:49 Results - Lab Results 02/14/22 12:11 02/15/22 06:12 Most recent lab results ABG pH 7.350 pH Units (7.350-7.450) 02/14/22 11:20 ABG pCO2 39.1 mm Hg 02/14/22 11:20 ABG pO2 131.0 mm Hg (80.0-90.0) H 02/14/22 11:20 ABG HCO3 21.1 mmol/L (20.0-26.0) 02/14/22 11:20 ABG O2 Saturation 98.5 % (95.0-99.0) 02/14/22 11:20 Calcium 8.6 mg/dL (8.4-10.2) 02/15/22 06:12
--- NOTE | 2022-02-15 11:39 | Electrocardiograph Report ---
[facility] Test Date: 2022-02-14 Test Time: 12:17:06 Pat Name: TEETEE MARTINEZ Department: Room: A472 Gender: F Scheduling Agent: [id number] : 1955 Requested By: JO RIGGINS Order Number: [id number] Reading MD: Jeff Vincent Measurements Intervals [place] Rate: 70 P: MA: 142 QRS: -1 QRSD: 86 T: 48 QT: 437 QTc: 472 Interpretive Statements Atrial-paced complexes Consider anteroseptal infarct Compared to ECG 02/06/2022 08:09:18 Myocardial infarct finding now present Ventricular-paced complex(es) or rhythm no longer present Prolonged QT interval no longer present Electronically Signed On 02-15-2022 11:39:05 EDT by Jeff Vincent
--- NOTE | 2022-02-15 12:40 | Discharge Summary ---
Providers - Providers Date of Admission: 02/14/22 13:53 Date of discharge: 02/15/22 Attending physician: FERNANDO HARVEY MD 02/14/22 13:53 Consult to Physician [CONS] Routine Comment: Consulting Provider: SEBAS DELGADO Physician Instructions: Reason For Exam: esrd Primary care physician: ROADING ENGINEER Hospitalization Reason for admission: Acute hypoxic respiratory failure Condition: Stable Pertinent studies: Reviewed. Procedures: None. Hospital course: The patient is a 66-year-old female with past medical history of ESRD (on hemodialysispermacath in right upper chest), COPD, hypertension, chronic tobacco dependence, atrial fibrillation on Eliquis, and coronary artery disease with stents in the mid and distal LAD who presented with increased shortness of breath and orthopnea after missing 2 hemodialysis sessions last week. The patient endorses having abdominal symptoms and being sick as the reasons as to why she missed hemodialysis x2. The patient on presentation was tachycardic to 117, tachypneic to 24, and hypertensive at 173/92. The patient was placed on BiPAP for symptomatic improvement. The patient has since been weaned down to room air. Later labs revealed hyperkalemia to 6.2. Nephrology was consulted about performing emergent hemodialysis. The patient received medical management for hyperkalemia and successfully underwent hemodialysis on 02/15/2022. After hemodialysis, the patient will be medically clear for discharge. The patient will return home, continue her hemodialysis on her TTS schedule. Patient is medically clear for discharge. Disposition: 01 HOME / SELF CARE / HOMELESS Final Discharge Diagnosis (Prints w/discharge instructions): Acute hypoxic respiratory failure, ESRD on hemodialysis, hypertension, CAD complicated by prior stent, hyperlipidemia, schizophrenia, COPD, history of pacemaker, tobacco dependence, hyperkalemia, hyperlipidemia, atrial fibrillation on anticoagulation Time spent for discharge: 45 min Core Measure Documentation - Palliative Care Palliative Care/ Comfort Measures: Not Applicable - Core Measures Any of the following diagnoses?: history only Exam - Constitutional Vitals: Temp Pulse Resp BP Pulse Ox 97.9 F 102 H 18 152/97 99 02/15/22 07:57 02/15/22 11:45 02/15/22 07:57 02/15/22 11:45 02/15/22 11:07 General appearance: Present: no acute distress, well-nourished - EENT Eyes: Present: PERRL, EOM intact ENT: hearing intact, clear oral mucosa, dentition normal - Neck Neck: Present: supple, normal ROM, other (Permacath and right upper chest) - Respiratory Respiratory effort: normal Respiratory: bilateral: diminished - Cardiovascular Rhythm: irregularly irregular Heart Sounds: Present: S1 & S2 - Extremities Extremities: no ischemia, pulses intact, pulses symmetrical, No edema, normal temperature, normal color, Full ROM, abnormal (Right upper extremity AV fistula with palpable thrill) Peripheral Pulses: within normal limits - Abdominal General gastrointestinal: Present: soft, non-tender, non-distended, normal bowel sounds Female genitourinary: Present: deferred - Rectal Rectal Exam: deferred - Integumentary Integumentary: Present: clear, warm, dry - Musculoskeletal Musculoskeletal: strength equal bilaterally - Psychiatric Psychiatric: appropriate mood/affect, cooperative - Neurologic Neurologic: CNII-XII intact, moves all extremities - Allied Health Allied health notes reviewed: nursing Plan Activity: no restrictions Diet: low salt, renal Additional Instructions: The patient is a 66-year-old female with past medical history of ESRD (on hemodialysispermacath in right upper chest), COPD, hypertension, chronic tobacco dependence, atrial fibrillation on Eliquis, and coronary artery disease with stents in the mid and distal LAD who presented with increased shortness of breath and orthopnea after missing 2 hemodialysis sessions last week. The patient endorses having abdominal symptoms and being sick as the reasons as to why she missed hemodialysis x2. The patient on presentation was tachycardic to 117, tachypneic to 24, and hypertensive at 173/92. The patient was placed on BiPAP for symptomatic improvement. The patient has since been weaned down to room air. Later labs revealed hyperkalemia to 6.2. Nephrology was consulted about performing emergent hemodialysis. The patient received medical management for hyperkalemia and successfully underwent hemodialysis on 02/15/2022. After hemodialysis, the patient will be medically clear for discharge. The patient will return home, continue her hemodialysis on her TTS schedule. Patient is medically clear for discharge. Care Plan Goals: Patient is medically clear for discharge. Assessment: The patient is a 66-year-old female with past medical history of ESRD (on hemodialysispermacath in right upper chest), COPD, hypertension, chronic tobacco dependence, atrial fibrillation on Eliquis, and coronary artery disease with stents in the mid and distal LAD who presented with increased shortness of breath and orthopnea after missing 2 hemodialysis sessions last week. The patient endorses having abdominal symptoms and being sick as the reasons as to why she missed hemodialysis x2. The patient on presentation was tachycardic to 117, tachypneic to 24, and hypertensive at 173/92. The patient was placed on BiPAP for symptomatic improvement. The patient has since been weaned down to room air. Later labs revealed hyperkalemia to 6.2. Nephrology was consulted about performing emergent hemodialysis. The patient received medical management for hyperkalemia and successfully underwent hemodialysis on 02/15/2022. After hemodialysis, the patient will be medically clear for discharge. The patient will return home, continue her hemodialysis on her TTS schedule. Patient is medically clear for discharge. Follow up with: PRIMARY MD ANIYAH [Primary Care Provider] - 3-5 Days
[2022-02-15 16:05] VITALS: BP 157/81
== END 2022-02-15 17:00 | disposition home or self-care (01) ==
LOC: ED 10:43 → 4A 13:53 → INTOOBSV 13:53 → 4A 16:02
PROVIDERS: ADMIT Internal Medicine; ATTEND Student in an Organized Health Care Education/Training Program
DX: J96.01 Acute respiratory failure with hypoxia (principal); I13.2 Hypertensive heart and chronic kidney disease with heart failure and with stage 5 chronic kidney disease, or end stage renal disease; I50.9 Heart failure, unspecified; N18.6 End stage renal disease; I25.10 Atherosclerotic heart disease of native coronary artery without angina pectoris; E78.2 Mixed hyperlipidemia; I48.20 Chronic atrial fibrillation, unspecified; J44.1 Chronic obstructive pulmonary disease with (acute) exacerbation; D69.6 Thrombocytopenia, unspecified; E46 Unspecified protein-calorie malnutrition; E87.5 Hyperkalemia; E78.00 Pure hypercholesterolemia, unspecified; F17.200 Nicotine dependence, unspecified, uncomplicated; Z68.1 Body mass index [BMI] 19.9 or less, adult; Z99.2 Dependence on renal dialysis; Z95.1 Presence of aortocoronary bypass graft; Z86.73 Personal history of transient ischemic attack (TIA), and cerebral infarction without residual deficits; Z95.0 Presence of cardiac pacemaker; Z79.82 Long term (current) use of aspirin; Z79.4 Long term (current) use of insulin; Z79.01 Long term (current) use of anticoagulants
CPT/HCPCS: 36415; 71045; 80053; 82803; 84484; 85025; 93005; 94640; 94644; 94760; 96365; 96372; 96375; 96376; 99291; G0257; G0378; J0610; J0885; J1644; J1940; J2270; J2930; 80048

== ENCOUNTER 2022-02-27 09:40 | Observation (INO) | payer MEDICARE ==
[2022-02-27] MEDS ORDERED: ONDANSETRON 4 MG/2 ML INJ IV ONE (09:52)
[2022-02-27] MEDS ORDERED: MORPHINE 4 MG/1 ML INJ IV ONE (09:52)
--- NOTE | 2022-02-27 09:55 | Emergency Department Report ---
ED Chest Pain HPI - General Chief Complaint: Chest Pain Stated Complaint: CHEST PAIN Time Seen by Provider: 02/27/22 09:50 Source: patient, EMS Mode of arrival: Stretcher Limitations: No Limitations - History of Present Illness Initial Comments: Patient is 66-year-old female with history of end-stage renal disease on hemodialysis, coronary artery disease and hypertension. Patient brought to the emergency room via EMS from home for evaluation of sudden onset of left-sided chest pain, pressure with radiation to the back. Patient stated that this is similar to when she had a heart attack and a stent 1 year ago. Patient states that she took nitroglycerin and it helped a little bit with the pain. Patient denied any fever or chills. No cough. EMS stated that patient oxygen saturation initially was 89% on room air improved to 100% on 2 L. MD Complaint: chest pain -: Sudden, hour(s) (1) Onset: during rest Pain Location: substernal Pain Radiation: back Severity: severe Severity scale (0 -10): 8 Quality: tightness, heaviness Consistency: constant - Related Data Home Medications Medication Instructions Recorded Confirmed Last Taken Quetiapine Fumarate [Seroquel] 100 mg PO BID 08/01/17 02/06/22 02/05/22 22:00 Hydralazine HCl 50 mg PO TID 02/06/22 02/06/22 02/05/22 09:00 cloNIDine [Catapres] 0.1 mg PO BID 02/06/22 02/06/22 02/05/22 09:00 Previous Rx's Medication Instructions Recorded Last Taken Type Albuterol Mdi (or & Nicu Only) 2 puff IH QID PRN #1 inha 12/22/17 04/10/20 Rx [ProAir HFA Inhaler] Metoprolol [Lopressor TAB] 50 mg PO BID #60 tablet 05/29/20 02/05/22 22:00 Rx Amiodarone [Cordarone 200 MG TAB] 200 mg PO BID #60 tablet 01/22/22 02/05/22 22:00 Rx Aspirin EC [Halfprin EC] 81 mg PO QDAY #30 tablet 01/22/22 02/05/22 09:00 Rx Apixaban [Eliquis] 5 mg PO Q12HR #60 tablet 02/28/22 Unknown Rx Allergies Allergy/AdvReac Type Severity Reaction Status Date / Time apple AdvReac Hives Verified 02/27/22 09:44 aspirin AdvReac Unknown Verified 02/27/22 09:44 shell fish Allergy Swelling Uncoded 02/27/22 09:44 Heart Score - HEART Score History: Moderately suspicious EKG: Non-specific Age: > 65 Risk factors: > 3 risk factors or hx of atherosclerotic disease Troponin: < normal limit HEART Score: 6 - EKG Read Time Time EKG Completed: :15 EKG Read Time: 09:15 - Critical Actions Critical Actions: 4-6 pts:12-16.6% risk of adverse cardiac event. Should be admitted ED Review of Systems ROS: Stated complaint: CHEST PAIN Other details as noted in HPI Comment: All other systems reviewed and negative Constitutional: denies: chills, fever Respiratory: denies: cough, shortness of breath, SOB with exertion Cardiovascular: chest pain, palpitations Gastrointestinal: denies: abdominal pain, nausea, vomiting, diarrhea, constipation, hematemesis, melena, hematochezia Musculoskeletal: denies: back pain Neurological: denies: headache, weakness, numbness, paresthesias, confusion ED Past Medical Hx - Past Medical History Hx Hypertension: Yes Hx CVA: Yes (right sided weakness) Hx Heart Attack/AMI: Yes (1 stent) Hx Congestive Heart Failure: Yes Hx Diabetes: Yes Hx Renal Disease: Yes (RENAL INSUFFICIENCY- stent left kidney) Hx Psychiatric Treatment: Yes (BIPOLAR/SCHIZOPHRENIA) Hx COPD: Yes Additional medical history: HIGH CHOLESTEROL - Surgical History Hx Coronary Stent: Yes Hx Pacemaker: Yes Additional Surgical History: stent placement x 2 in 2014, knee surgery 11/2017 - Social History Smoking Status: Never Smoker - Medications Home Medications: Home Medications Medication Instructions Recorded Confirmed Last Taken Type Quetiapine Fumarate [Seroquel] 100 mg PO BID 08/01/17 02/06/22 02/05/22 22:00 History Albuterol Mdi (or & Nicu Only) 2 puff IH QID PRN #1 inha 12/22/17 02/06/22 04/10/20 Rx [ProAir HFA Inhaler] Metoprolol [Lopressor TAB] 50 mg PO BID #60 tablet 05/29/20 02/06/22 02/05/22 22:00 Rx Amiodarone [Cordarone 200 MG TAB] 200 mg PO BID #60 tablet 01/22/22 02/06/22 02/05/22 22:00 Rx Aspirin EC [Halfprin EC] 81 mg PO QDAY #30 tablet 01/22/22 02/06/22 02/05/22 09:00 Rx Hydralazine HCl 50 mg PO TID 02/06/22 02/06/22 02/05/22 09:00 History cloNIDine [Catapres] 0.1 mg PO BID 02/06/22 02/06/22 02/05/22 09:00 History Apixaban [Eliquis] 5 mg PO Q12HR #60 tablet 02/28/22 Unknown Rx ED Physical Exam - General Limitations: No Limitations General appearance: alert, in distress - Head Head exam: Present: atraumatic, normocephalic, normal inspection - Eye Eye exam: Present: normal appearance - ENT ENT exam: Present: normal exam, normal orophraynx, mucous membranes moist - Neck Neck exam: Present: normal inspection, full ROM. Absent: tenderness, meningismus, lymphadenopathy, thyromegaly - Respiratory Respiratory exam: Present: normal lung sounds bilaterally - Cardiovascular Cardiovascular Exam: Present: tachycardia - GI/Abdominal GI/Abdominal exam: Present: soft, normal bowel sounds. Absent: distended, ten derness, guarding, rebound, rigid, organomegaly, mass, bruit, pulsatile mass, hernia - Extremities Exam Extremities exam: Present: normal inspection, full ROM, normal capillary refill. Absent: tenderness, pedal edema, joint swelling, calf tenderness - Back Exam Back exam: Present: normal inspection, full ROM. Absent: CVA tenderness (R), CVA tenderness (L) - Neurological Exam Neurological exam: Present: alert, oriented X3, CN II-XII intact, normal gait, reflexes normal - Psychiatric Psychiatric exam: Present: normal mood - Skin Skin exam: Present: warm, intact, normal color ED Course Vital Signs 02/27/22 02/27/22 09:41 10:01 Pulse Rate 120 H Blood Pressure 190/100 [Left] O2 Sat by Pulse 89 98 Oximetry - Reevaluation(s) Reevaluation #1: 02/27/22 14:12 Patient stated that chest pain improved a little bit with morphine however came back again. 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 He advised admit the patient to hospitalist for further management. BLAS score - Blas Score Age > 65: (1) Yes Aspirin use within the Past 7 Days: (0) No 3 or more CAD Risk Factors: (1) Yes 2 or more Angina events in past 24 hrs: (1) Yes Known CAD with more than 50% Stenosis: (1) Yes Elevated Cardiac Markers: (0) No ST Deviation Greater than 0.5mm: (0) No BLAS Score: 4 ED Medical Decision Making - Lab Data Result diagrams: 02/28/22 06:03 02/28/22 06:03 - EKG Data -: EKG Interpreted by Me Rate: tachycardia - EKG Data 02/27/22 14:44 Atrial flutter with a heart rate of 119. - Radiology Data Radiology results: report reviewed - Medical Decision Making Patient is 66-year-old female with history of end-stage renal disease on hemodialysis, coronary artery disease and hypertension. Patient brought to the emergency room via EMS from home for evaluation of sudden onset of left-sided chest pain, pressure with radiation to the back. Patient stated that this is similar to when she had a heart attack and a stent 1 year ago. Patient states that she took nitroglycerin and it helped a little bit with the pain. Patient denied any fever or chills. No cough. EMS stated that patient oxygen saturation initially was 89% on room air improved to 100% on 2 L. EKG showed atrial flutter with heart rate of 119. Chest x-ray is unremarkable. Labs reviewed and showed elevated D-dimer. Patient's symptoms concerning for pulmonary embolism. VQ scan showed high probability for PE. Patient received heparin bolus and started on heparin drip. I discussed the patient with Dr. Giron, he agreed to admit the patient to medical service for further management. Critical Care Time: Yes Critical care time in (mins) excluding proc time.: 35 Critical care attestation.: If time is entered above; I have spent that time in minutes in the direct care of this critically ill patient, excluding procedure time. ED Disposition Clinical Impression: Unstable angina, End-stage renal disease on hemodialysis, Acute respiratory failure with hypoxemia Acute pulmonary embolism Qualifiers: Pulmonary embolism type: unspecified Disposition: 09 ADMITTED INPATIENT Is pt being admited?: Yes Condition: Stable
--- NOTE | 2022-02-27 10:10 | XRay Report ---
CHEST 1 VIEW INDICATION / CLINICAL INFORMATION: Chest Pain. COMPARISON: 02/14/2022 FINDINGS: SUPPORT DEVICES: Unchanged. HEART / MEDIASTINUM: No significant abnormality. LUNGS / PLEURA: No significant pulmonary or pleural abnormality. No pneumothorax. ADDITIONAL FINDINGS: No significant additional findings. IMPRESSION: 1. No acute findings. Signer Name: Jayson Boyd MD Signed: 02/27/2022 10:06 AM Workstation Name: [id number]
[2022-02-27 10:54] LABS: Basophils # (Auto) 0.1 K/mm3 (0.0-0.1); Basophils % (Auto) 0.6 % (0.0-1.8); Eosinophils # (Auto) 0.2 K/mm3 (0.0-0.4); Eosinophils % (Auto) 2.4 % (0.0-4.3); Hematocrit 41.6 % (30.3-42.9); Hemoglobin 13.6 gm/dl (10.1-14.3); Lymphocytes # (Auto) 1.5 K/mm3 (1.2-5.4); Mean Corpuscular HGB Conc 33 % (30-34); Mean Corpuscular Volume 96 fl (79-97); Monocytes # (Auto) 0.6 K/mm3 (0.0-0.8); Monocytes % (Auto) 6.1 % (0.0-7.3); Platelet Count 172 K/mm3 (140-440); Red Blood Count 4.34 M/mm3 (3.65-5.03); Red Cell Distribution Width 18.6 % (13.2-15.2)
[2022-02-27 11:15] LABS: INR 1.04 (0.87-1.13)
[2022-02-27 11:16] LABS: Partial Thromboplastin Time 39.6 Sec. (24.2-36.6)
[2022-02-27 11:56] LABS: Calcium 10.3 mg/dL (8.4-10.2)
[2022-02-27 11:58] LABS: Bilirubin,Direct 0.2 mg/dL (0-0.2)
[2022-02-27] MEDS ORDERED: fentaNYL 100 MCG/2 ML INJ IV ONE (13:05)
--- NOTE | 2022-02-27 14:32 | Nuclear Medicine Report ---
NUCLEAR MEDICINE PERFUSION LUNG SCAN INDICATION / CLINICAL INFORMATION: CHEST PAIN,SOB,. TECHNIQUE: 5.5 mCi of Tc-99m MAA were given by IV. COMPARISON: Chest radiograph dated 02/27/2022. FINDINGS: PERFUSION: There are several peripheral wedge-shaped defects. ADDITIONAL FINDINGS: None. IMPRESSION: 1. High probability for pulmonary embolism. Signer Name: Isac Randhawa DO Signed: 02/27/2022 2:27 PM Workstation Name: [id number]
[2022-02-27] MEDS ORDERED: HEPARIN 10,000 UNITS/10 ML VIAL IV ONE (14:35)
--- NOTE | 2022-02-27 14:47 | History and Physical Report ---
History of Present Illness Chief complaint: My chest hurts when I breathe History of present illness: 66 YO Female with ESRD on HD(T,R,Sa), HTN, CVA, SD, CHF, Nicotine Dependence, Atrial Fib on Renal Dose Therapeutic Anticoagulation, DM, CKD, COPD, HLD, Bipolar Disorder, CAD S/P Stent Placement presents to ED for evaluation. Patient reports "my chest hurts when I breathe". Patient states that she experienced a sudden onset of chest pain and tightness today. Patient states that the level of her pain was 8/10, constant, associate with shortness of breath, not worsened with exertion, not relieved with rest, worsened with deep breathing, radiates to the back, mild relief with nitro. Patient acknowledges decreased exercise tolerance, dyspnea on exertion, as well as dyspnea at rest. EMS notified and upon arrival the patient was found to be in distress and subsequent transported to [facility] for further care and evaluation of the aforementioned symptoms. Patient was seen and evaluated in the emergency department. All lab and imaging studies reviewed. Patient found to have pulse oximetry of 86% on room air with exertion which is consistent with acute hypoxemic respiratory failure, as well as clinical symptoms consistent with acute diastolic congestive heart failure, and a systolic blood pressure in the 190s which is consistent with hypertensive urgency, end-stage renal disease, fluid overload. Patient underwent VQ scan and was found to have findings consistent with pulmonary embolism. Patient admitted to telemetry due to increased risk of cardiac decompensation and for medical stabilization. Patient initiated on therapeutic anticoagulation with heparin in the emergency department as well as noninvasive positive pressure ventilation due to only mild improvement in symptoms with supplemental oxygen. Nephrology team consulted in ED for urgent dialysis. Cardiology team consulted in ED. Pt denies fever, chills, productive cough, unilateral leg swelling, calf pain, NVD, syncope, dizziness, or recent ill contacts, syncope, known exposure to COVID-19. Prior admission on 02/14/2022 reviewed. All medication listed at time of admission has been reconciled. Advanced care planning conducted in ED. Past History Past Medical History: acute SD, atrial fib, COPD, diabetes, heart failure, hypertension, stroke, other (See HPI) Past Surgical History: total knee replacement, Other (Pacemaker placement, cardiac stent placement) Social history: . denies: smoking, alcohol abuse, prescription drug abuse Family history: diabetes, hypertension Medications and Allergies Allergies Allergy/AdvReac Type Severity Reaction Status Date / Time apple AdvReac Hives Verified 02/27/22 09:44 aspirin AdvReac Unknown Verified 02/27/22 09:44 shell fish Allergy Swelling Uncoded 02/27/22 09:44 Home Medications Medication Instructions Recorded Confirmed Last Taken Type Quetiapine Fumarate [Seroquel] 100 mg PO BID 08/01/17 02/06/22 02/05/22 22:00 History Albuterol Mdi (or & Nicu Only) 2 puff IH QID PRN #1 inha 12/22/17 02/06/22 04/10/20 Rx [ProAir HFA Inhaler] Metoprolol [Lopressor TAB] 50 mg PO BID #60 tablet 05/29/20 02/06/22 02/05/22 22:00 Rx Amiodarone [Cordarone 200 MG TAB] 200 mg PO BID #60 tablet 01/22/22 02/06/22 02/05/22 22:00 Rx Aspirin EC [Halfprin EC] 81 mg PO QDAY #30 tablet 01/22/22 02/06/22 02/05/22 09:00 Rx Apixaban [Eliquis] 2.5 mg PO Q12HR #60 tablet 02/06/22 Unknown Rx Hydralazine HCl 50 mg PO TID 02/06/22 02/06/22 02/05/22 09:00 History cloNIDine [Catapres] 0.1 mg PO BID 02/06/22 02/06/22 02/05/22 09:00 History Active Meds: Active Medications Heparin Sodium/Sodium Chloride (Heparin/ 0.45% Nacl-25,000 Unit/500 Ml) 25,000 unit in 500 mls @ 16.329 mls/hr IV TITR CHRISTEL; Protocol Review of Systems Constitutional: no weight loss, no weight gain, no fever, no chills Ears, nose, mouth and throat: no ear pain, no ear discharge, no tinnitis, no de creased hearing, no nose pain, no nasal discharge Breasts: no change in shape Cardiovascular: chest pain, shortness of breath, dyspnea on exertion, high blood pressure, decreased exercise tolerance Respiratory: shortness of breath, pleurisy Gastrointestinal: no abdominal pain, no nausea, no vomiting, no diarrhea Genitourinary Female: no pelvic pain, no flank pain, no dysuria, no urinary frequency, no urgency Rectal: no pain, no incontinence, no bleeding Musculoskeletal: no neck stiffness, no neck pain, no shooting arm pain, no arm numbness/tingling, no low back pain, no shooting leg pain Integumentary: no rash, no pruritis, no redness, no sores, no jaundice, no boils, no blisters Neurological: no head injury, no paralysis, no weakness, no numbness, no syncope, no tremors Psychiatric: no anxiety, no change in sleep habits, no insomnia, no change in appetite, no change in libido, no disorientation Endocrine: no cold intolerance, no polyphagia, no polyuria, no weight change Hematologic/Lymphatic: no easy bruising, no easy bleeding Allergic/Immunologic: no allergic rhinitis, no wheezing Exam - Constitutional Vitals: Temp Pulse Resp BP Pulse Ox 120 H 190/100 98 02/27/22 09:41 02/27/22 09:41 02/27/22 10:01 General appearance: Present: mild distress - EENT Eyes: Present: PERRL ENT: clear oral mucosa, hearing decreased - Neck Neck: Present: supple, normal ROM, masses or JVD - Respiratory Respiratory effort: labored, accessory muscle use Respiratory: bilateral: diminished, rales - Cardiovascular Heart Sounds: Present: S1 & S2. Absent: rub, click - Extremities Extremity abnormal: edema Peripheral Pulses: within normal limits - Abdominal General gastrointestinal: Present: soft, non-tender, non-distended, normal bowel sounds Female genitourinary: Present: normal - Integumentary Integumentary: Present: clear, warm, dry - Musculoskeletal Musculoskeletal: generalized weakness - Psychiatric Psychiatric: appropriate mood/affect, cooperative - Neurologic Neurologic: CNII-XII intact HEART Score - HEART Score EKG: Non-specific Age: > 65 Risk factors: > 3 risk factors or hx of atherosclerotic disease Troponin: Troponin T 0.016 ng/mL (0.00-0.029) 02/27/22 12:25 Troponin: < normal limit Results - Labs CBC & Chem 7: 02/27/22 10:20 02/27/22 10:20 Labs: Abnormal lab results 02/27/22 02/27/22 02/27/22 Range/Units 10:20 10:20 10:20 RDW 18.6 H (13.2-15.2) % Seg Neutrophils % 74.9 H (40.0-70.0) % APTT 39.6 H (24.2-36.6) Sec. D-Dimer 921.97 H (0-234) ng/mlDDU Chloride 97.9 L (98-107) mmol/L BUN 23 H (7-17) mg/dL Creatinine 3.1 H (0.6-1.2) mg/dL Calcium 10.3 H (8.4-10.2) mg/dL Assessment and Plan - Patient Problems (1) Acute hypoxemic respiratory failure Current Visit: Yes Status: Acute Plan to address problem: Supplemental oxygen, pulse oximetry, nebulizer therapy, continue noninvasive positive pressure ventilation as clinically indicated, pulmonary toilet, incentive spirometry, chest x-ray, VQ scan (2) CHF (congestive heart failure) Current Visit: Yes Status: Acute Qualifiers: Heart failure type: diastolic Heart failure chronicity: acute on chronic Qualified Code(s): I50.33 - Acute on chronic diastolic (congestive) heart failure Plan to address problem: Strict I's/O, monitor urine output every shift, daily weight, afterload reduction, blood pressure control, diuresis, cardiology team consulted, supplemental oxygen, pulse oximetry. (3) Acute pulmonary embolism Current Visit: Yes Status: Acute Qualifiers: Pulmonary embolism type: unspecified Plan to address problem: Patient initiated on renal dosed therapeutic anticoagulation for pulmonary embolism, supportive care. Continue medical management. (4) End-stage renal disease on hemodialysis Current Visit: Yes Status: Acute Plan to address problem: Nephrology team consulted in ED, dialysis as per renal team. Strict I/O, monitor urine output every shift, monitor fluid balance, avoid nephrotoxic agents. (5) Malignant hypertension Current Visit: No Status: Acute Plan to address problem: Monitor blood pressure every shift, continue medical management, continue prehospital antihypertensive therapy, hydralazine 10 mg IV every 6 hours as needed for systolic blood pressure greater than or equal to 155 mmHg. (6) Atrial fibrillation Current Visit: No Status: Chronic Qualifiers: Atrial fibrillation type: longstanding persistent Qualified Code(s): I48.11 - Longstanding persistent atrial fibrillation Plan to address problem: Continue therapeutic anticoagulation, rate control, supportive care. (7) Diabetes Current Visit: Yes Status: Acute Plan to address problem: Consistent carbohydrate diet, Accu-Chek, insulin protocol, hypoglycemia protocol (8) COPD (chronic obstructive pulmonary disease) Current Visit: Yes Status: Acute Plan to address problem: Supplemental oxygen, pulse oximetry, supportive care, continue medical management. No acute decompensation at this time. (9) Bipolar 1 disorder Current Visit: No Status: Chronic Plan to address problem: Supportive care, outpatient psychiatry follow-up. (10) HLD (hyperlipidemia) Current Visit: No Status: Chronic Qualifiers: Hyperlipidemia type: mixed hyperlipidemia Qualified Code(s): E78.2 - Mixed hyperlipidemia Plan to address problem: Low-cholesterol diet, statin therapy as clinically indicated. (11) DVT prophylaxis Current Visit: No Status: Acute Plan to address problem: SCDs bilateral lower extremities while in bed, continue therapeutic anticoagulation (12) Advance care planning Current Visit: Yes Status: Acute Plan to address problem: Disease education conducted, care plan discussed, diagnoses discussed, prognosis discussed, patient full code. Patient acknowledges understanding and agreement with care plan, +30 minutes.
[2022-02-27] MEDS ORDERED: ACETAMINOPHEN 325 MG TAB PO PRN (14:56)
[2022-02-27] MEDS ORDERED: ALBUTEROL 2.5 MG/3 ML NEBU IH PRN (14:56)
[2022-02-27] MEDS ORDERED: ONDANSETRON 4 MG/2 ML INJ IV PRN (14:56)
[2022-02-27] MEDS ORDERED: HEPARIN/ 0.45% NACL DRIP 25,000 UNIT/500 ML BAG IV SCH (15:00)
[2022-02-27] MEDS: APIXABAN 5 MG TAB PO SCH ×2 (18:10→21:18)
[2022-02-27] MEDS: MORPHINE 4 MG/1 ML INJ IV PRN (18:11)
--- NOTE | 2022-02-27 18:11 | Consultation ---
History of Present Illness Consult date: 02/27/22 Consult reason: chest pain History of present illness: Patient is a 66-year-old woman admitted with complaints of nonexertional chest pain. She presented to the emergency room and was evaluated and referred for admission. On presentation, her ECG on my review showed atrial flutter with variable AV conduction. Currently on the telemetry floor, she is back in a stable sinus rhythm at 85, and her symptoms have resolved. She has a history of paroxysmal atrial flutter fibrillation, on rhythm control therapy, and oral anticoagulation with Eliquis. On questioning, she states that her symptoms are reminiscent of a previous admission to [facility] in July 2020, for rapid atrial fibrillation. Comorbidities include end-stage renal disease on hemodialysis, and coronary artery disease with previous coronary stents to the LAD. 3 years ago, a repeat cardiac catheterization showed wide patency of the proximal, mid and distal vessel LAD stents, with no significant residual disease in other coronary segments. Left ventricular systolic function has been well preserved, 50 to 65% on serial function assessments. Past History Past Medical History: atrial fib, CAD, ESRD, hypertension Past Surgical History: PTCA Medications and Allergies Allergies Allergy/AdvReac Type Severity Reaction Status Date / Time apple AdvReac Hives Verified 02/27/22 09:44 aspirin AdvReac Unknown Verified 02/27/22 09:44 shell fish Allergy Swelling Uncoded 02/27/22 09:44 Home Medications Medication Instructions Recorded Confirmed Last Taken Type Quetiapine Fumarate [Seroquel] 100 mg PO BID 08/01/17 02/06/22 02/05/22 22:00 History Albuterol Mdi (or & Nicu Only) 2 puff IH QID PRN #1 inha 12/22/17 02/06/22 04/10/20 Rx [ProAir HFA Inhaler] Metoprolol [Lopressor TAB] 50 mg PO BID #60 tablet 05/29/20 02/06/22 02/05/22 22:00 Rx Amiodarone [Cordarone 200 MG TAB] 200 mg PO BID #60 tablet 01/22/22 02/06/22 02/05/22 22:00 Rx Aspirin EC [Halfprin EC] 81 mg PO QDAY #30 tablet 01/22/22 02/06/22 02/05/22 09:00 Rx Apixaban [Eliquis] 2.5 mg PO Q12HR #60 tablet 02/06/22 Unknown Rx Hydralazine HCl 50 mg PO TID 02/06/22 02/06/22 02/05/22 09:00 History cloNIDine [Catapres] 0.1 mg PO BID 02/06/22 02/06/22 02/05/22 09:00 History Active Meds: Active Medications Acetaminophen (Acetaminophen 325 Mg Tab) 650 mg PO Q4H PRN PRN Reason: Pain MILD(1-3)/Fever >100.5/SILVA Albuterol (Albuterol 2.5 Mg/3 Ml Nebu) 2.5 mg IH Q4HRT PRN PRN Reason: Shortness Of Breath Amiodarone HCl (Amiodarone 200 Mg Tab) 200 mg PO BID [facility] Apixaban (Apixaban 5 Mg Tab) 5 mg PO Q12HR [facility]; Protocol Aspirin (Aspirin Ec 81 Mg Tab) 81 mg PO QDAY [facility] Clonidine HCl (Clonidine 0.1 Mg Tab) 0.1 mg PO BID [facility] Hydralazine HCl (Hydralazine 25 Mg Tab) 50 mg PO Q8HR [facility] Metoprolol Tartrate (Metoprolol Tartrate 50 Mg Tab) 50 mg PO BID [facility] Morphine Sulfate (Morphine 4 Mg/1 Ml Inj) 2 mg IV Q8H PRN PRN Reason: Pain , Severe (7-10) Ondansetron HCl (Ondansetron 4 Mg/2 Ml Inj) 4 mg IV Q8H PRN PRN Reason: Nausea And Vomiting Oxycodone/Acetaminophen (Oxycodone /Acetaminophen 5-325mg Tab) 1 tab PO Q6H PRN PRN Reason: Pain, Moderate (4-6) Quetiapine Fumarate (Quetiapine 100 Mg Tab) 100 mg PO BID [facility] Sodium Chloride (Sodium Chloride 0.9% 10 Ml Flush Syringe) 10 ml IV BID [facility] Sodium Chloride (Sodium Chloride 0.9% 10 Ml Flush Syringe) 10 ml IV PRN PRN PRN Reason: LINE FLUSH Review of Systems Cardiovascular: chest pain, rapid/irregular heart beat, shortness of breath, no orthopnea, no palpitations, no edema, no syncope, no lightheadedness Physical Examination Vital Signs Pulse BP Pulse Ox 120 H 190/100 89 02/27/22 09:41 02/27/22 09:41 02/27/22 09:41 General appearance: no acute distress HEENT: Positive: PERRL Neck: Positive: neck supple Cardiac: Positive: Reg Rate and Rhythm Lungs: Positive: Decreased Breath Sounds Neuro: Positive: Grossly Intact Abdomen: Positive: Soft Female genitourinary: deferred Skin: Positive: Clear Extremities: Absent: edema Results 02/27/22 10:20 02/27/22 10:20 Cardiac Enzymes 02/27/22 Range/Units 10:20 AST 13 (5-40) units/L Coagulation 02/27/22 Range/Units 10:20 PT 14.8 (12.2-14.9) Sec. INR 1.04 (0.87-1.13) APTT 39.6 H (24.2-36.6) Sec. CBC 02/27/22 Range/Units 10:20 WBC 9.1 (4.5-11.0) K/mm3 RBC 4.34 (3.65-5.03) M/mm3 Hgb 13.6 (10.1-14.3) gm/dl Hct 41.6 (30.3-42.9) % Plt Count 172 (140-440) K/mm3 Lymph # (Auto) 1.5 (1.2-5.4) K/mm3 [place] # (Auto) 0.6 (0.0-0.8) K/mm3 Eos # (Auto) 0.2 (0.0-0.4) K/mm3 Baso # (Auto) 0.1 (0.0-0.1) K/mm3 Comprehensive Metabolic Panel 02/27/22 02/27/22 Range/Units 10:20 10:20 Sodium 141 (137-145) mmol/L Potassium 3.9 (3.6-5.0) mmol/L Chloride 97.9 L (98-107) mmol/L Carbon Dioxide 23 (22-30) mmol/L BUN 23 H (7-17) mg/dL Creatinine 3.1 H (0.6-1.2) mg/dL Glucose 80 (65-100) mg/dL Calcium 10.3 H (8.4-10.2) mg/dL Direct Bilirubin 0.2 (0-0.2) mg/dL Indirect Bilirubin 0.8 mg/dL AST 13 (5-40) units/L ALT 10 (7-56) units/L Alkaline Phosphatase 92 (35-129) units/L Total Protein 7.0 (6.3-8.2) g/dL Albumin 5.0 (3.9-5) g/dL EKG interpretations - Telemetry EKG Rhythm: Atrial Flutter (With variable AV conduction) Assessment and Plan 66-year-old woman who presents with chest pain and atrial flutter. Likely that her chest pain is the presentation of her atrial arrhythmia, but considering history of coronary disease, we will proceed with ischemic assessment with a Lexiscan thallium stress test. Otherwise, continue rhythm control with amiodarone, and oral anticoagulation with Eliquis.
[2022-02-27] MEDS ORDERED: HEPARIN 10,000 UNITS/10 ML VIAL IV PRN (19:02)
[2022-02-27] MEDS ORDERED: SODIUM CHLORIDE 0.9% 100 ML IV PRN (19:02)
[2022-02-27 19:03] LABS: Hemoglobin 13.7 gm/dl (10.1-14.3); Mean Corpuscular HGB Conc 33 % (30-34); Mean Corpuscular Volume 97 fl (79-97); Platelet Count 179 K/mm3 (140-440); Red Blood Count 4.35 M/mm3 (3.65-5.03); Red Cell Distribution Width 18.7 % (13.2-15.2)
[2022-02-27 19:14] LABS: INR 1.07 (0.87-1.13)
[2022-02-27 19:15] LABS: Partial Thromboplastin Time 41.1 Sec. (24.2-36.6)
[2022-02-27] MEDS: hydrALAZINE 25 MG TAB PO SCH (19:39)
[2022-02-27] MEDS: oxyCODONE /ACETAMINOPHEN 5-325MG TAB PO PRN (19:40)
[2022-02-27] MEDS ORDERED: NON-FORMULARY EACH (Hydralazine Hcl [Hydralazine Hcl] 50 MG Tablet) PO SCH (20:00)
[2022-02-27] MEDS: METOPROLOL TARTRATE 50 MG TAB PO SCH (21:14)
[2022-02-27] MEDS: cloNIDine 0.1 MG TAB PO SCH (21:14)
[2022-02-27] MEDS: AMIODARONE 200 MG TAB PO SCH (21:15)
[2022-02-27] MEDS: QUEtiapine 100 MG TAB PO SCH (21:27)
[2022-02-27] MEDS ORDERED: APIXABAN 5 MG TAB PO SCH (22:00)
[2022-02-28] MEDS: hydrALAZINE 25 MG TAB PO SCH (05:29)
[2022-02-28] MEDS: oxyCODONE /ACETAMINOPHEN 5-325MG TAB PO PRN (05:34)
[2022-02-28 06:13] LABS: Basophils # (Auto) 0.1 K/mm3 (0.0-0.1); Basophils % (Auto) 0.8 % (0.0-1.8); Eosinophils # (Auto) 0.4 K/mm3 (0.0-0.4); Eosinophils % (Auto) 5.1 % (0.0-4.3); Hematocrit 37.8 % (30.3-42.9); Hemoglobin 11.9 gm/dl (10.1-14.3); Lymphocytes # (Auto) 1.8 K/mm3 (1.2-5.4); Lymphocytes % (Auto) 21.8 % (13.4-35.0); Mean Corpuscular HGB Conc 32 % (30-34); Mean Corpuscular Volume 98 fl (79-97); Monocytes # (Auto) 0.5 K/mm3 (0.0-0.8); Monocytes % (Auto) 6.5 % (0.0-7.3); Platelet Count 147 K/mm3 (140-440); Red Blood Count 3.87 M/mm3 (3.65-5.03); Red Cell Distribution Width 18.8 % (13.2-15.2)
[2022-02-28 06:36] LABS: Calcium 8.4 mg/dL (8.4-10.2)
[2022-02-28 07:11] LABS: Hepatitis B Surface Antigen Non-Reactive (Negative); Hepatitis C Virus Antibody Non-Reactive (NonReactive)
--- NOTE | 2022-02-28 09:09 | Consultation ---
History of Present Illness - Reason for Consult Consult date: 02/28/22 end stage renal disease - History of Present Illness The patient is a 66 YO female known to our service with history of DM-2, HTN, HLD, Bipolar Disorder, CAD S/P Stent Placement, Paroxysmal atrial fibrillation, HFpEF, COPD, Anemia and ESRD on hemodialysis (TTS) who presented to [facility] ED 02/27/22 with c/o CP. Patient states that she experienced a sudden onset of chest pain and tightness that started yesterday. Patient states that the pain was 8/10, constant, associated with shortness of breath, not worsened with exertion, worsened with deep breathing and radiates to the back. Patient has some baseline dyspnea on exertion. Patient denies any N, V, D, abd pain, dizziness, cough, weakness, fever, chills, rash, blurry vision, hematuria or hemoptysis. CXR negative. Patient was admitted for further evaluation. Labs and imaging noted. Nephrology was consulted for ESRD management. Past History Past Medical History: acute [place], atrial fib, COPD, diabetes, dialysis, ESRD, hea rt failure, hypertension, stroke, other (See HPI) Past Surgical History: total knee replacement, Other (Pacemaker placement, cardiac stent placement) Social history: . denies: smoking, alcohol abuse, prescription drug abuse Family history: diabetes, hypertension Medications and Allergies Allergies Allergy/AdvReac Type Severity Reaction Status Date / Time apple AdvReac Hives Verified 02/27/22 09:44 aspirin AdvReac Unknown Verified 02/27/22 09:44 shell fish Allergy Swelling Uncoded 02/27/22 09:44 Home Medications Medication Instructions Recorded Confirmed Last Taken Type Quetiapine Fumarate [Seroquel] 100 mg PO BID 08/01/17 02/06/22 02/05/22 22:00 History Albuterol Mdi (or & Nicu Only) 2 puff IH QID PRN #1 inha 12/22/17 02/06/22 04/10/20 Rx [ProAir HFA Inhaler] Metoprolol [Lopressor TAB] 50 mg PO BID #60 tablet 05/29/20 02/06/22 02/05/22 22:00 Rx Amiodarone [Cordarone 200 MG TAB] 200 mg PO BID #60 tablet 01/22/22 02/06/22 02/05/22 22:00 Rx Aspirin EC [Halfprin EC] 81 mg PO QDAY #30 tablet 01/22/22 02/06/22 02/05/22 09:00 Rx Hydralazine HCl 50 mg PO TID 02/06/22 02/06/22 02/05/22 09:00 History cloNIDine [Catapres] 0.1 mg PO BID 02/06/22 02/06/22 02/05/22 09:00 History Apixaban [Eliquis] 5 mg PO Q12HR #60 tablet 02/28/22 Unknown Rx Active Meds: Active Medications Acetaminophen (Acetaminophen 325 Mg Tab) 650 mg PO Q4H PRN PRN Reason: Pain MILD(1-3)/Fever >100.5/SILVA Albuterol (Albuterol 2.5 Mg/3 Ml Nebu) 2.5 mg IH Q4HRT PRN PRN Reason: Shortness Of Breath Amiodarone HCl (Amiodarone 200 Mg Tab) 200 mg PO BID [facility] Last Admin: 02/27/22 21:15 Dose: 200 mg Apixaban (Apixaban 5 Mg Tab) 5 mg PO Q12HR [facility]; Protocol Aspirin (Aspirin Ec 81 Mg Tab) 81 mg PO QDAY [facility] Clonidine HCl (Clonidine 0.1 Mg Tab) 0.1 mg PO BID [facility] Last Admin: 02/27/22 21:14 Dose: 0.1 mg Hydralazine HCl (Hydralazine 25 Mg Tab) 50 mg PO Q8HR [facility] Last Admin: 02/28/22 05:29 Dose: 50 mg Sodium Chloride (Nacl 0.9%) 100 mls @ 999 mls/hr IV KARLENE PRN PRN Reason: Hypotension Metoprolol Tartrate (Metoprolol Tartrate 50 Mg Tab) 50 mg PO BID [facility] Last Admin: 02/27/22 21:14 Dose: 50 mg Morphine Sulfate (Morphine 4 Mg/1 Ml Inj) 2 mg IV Q8H PRN PRN Reason: Pain , Severe (7-10) Last Admin: 02/27/22 18:11 Dose: 2 mg Ondansetron HCl (Ondansetron 4 Mg/2 Ml Inj) 4 mg IV Q8H PRN PRN Reason: Nausea And Vomiting Oxycodone/Acetaminophen (Oxycodone /Acetaminophen 5-325mg Tab) 1 tab PO Q6H PRN PRN Reason: Pain, Moderate (4-6) Last Admin: 02/28/22 05:34 Dose: 1 tab Quetiapine Fumarate (Quetiapine 100 Mg Tab) 100 mg PO BID [facility] Last Admin: 02/27/22 21:27 Dose: 100 mg Sodium Chloride (Sodium Chloride 0.9% 10 Ml Flush Syringe) 10 ml IV BID [facility] Last Admin: 02/27/22 21:18 Dose: 10 ml Sodium Chloride (Sodium Chloride 0.9% 10 Ml Flush Syringe) 10 ml IV PRN PRN PRN Reason: LINE FLUSH Review of Systems All systems: negative Exam - Vital Signs Vital signs: Vital Signs Pulse BP Pulse Ox 120 H 190/100 89 02/27/22 09:41 02/27/22 09:41 02/27/22 09:41 Results - Lab Results 02/28/22 06:03 02/28/22 06:03 Most recent lab results Calcium 8.4 mg/dL (8.4-10.2) D 02/28/22 06:03 Assessment and Plan 1. ESRD: Patient is on maintenance hemodialysis, TTS schedule. Last outpatient HD 02/26. Hemodialysis: today. 2. FEN: UF with HD as tolerated. Monitor lytes and volume status. 3. Chest pain // H/o CAD s/p PCI: Followed by Cards. 4. Acute PE, POA: Eliquis. Seen by Heme-Onc. 5. Chronic HFpEF: Volume control thru HD. Fluid restriction, monitor I/O. 6. H/o COPD: Not in exacerbation. Nebs and O2 as needed. 7. Paroxysmal A.fib: Eliquis. Monitor. 8. Hypertension: Volume control with HD. Continue home BP meds. Monitor BP. 9. Normocytic Anemia, POA: 2/2 ESRD. Epogen with HD as needed. Monitor. Subjective: Patient was seen and examined at the bedside. Examination: General appearance: well-developed, appears stated age, no distress HEENT: atraumatic, ANA Neck: trachea midline Respiratory: ctab Heart: S1S2, no murmur Abdomen: soft, bowel sounds heard, NT Integumentary: no obvious rash Neurologic: AO, able to move extremities Ext: no edema Hemodialysis access: R IJ tunnel catheter, R arm AVG
--- NOTE | 2022-02-28 09:54 | Discharge Summary ---
Providers - Providers Date of Admission: 02/27/22 14:56 Date of discharge: 02/28/22 Attending physician: FERNANDO HARVEY MD 02/27/22 14:09 Consult to Physician [CONS] Stat Comment: Consulting Provider: DEV BROWN Physician Instructions: Reason For Exam: chest pain 02/27/22 18:15 Consult to Physician [CONS] Routine Comment: Consulting Provider: SEBAS DELGADO Physician Instructions: Reason For Exam: esrd Primary care physician: VICENTA PILLAI DO Hospitalization Reason for admission: Acute hypoxic respiratory failure, acute pulmonary embolism Condition: Stable Pertinent studies: Patient 66-year-old female past medical history of ESRD on hemodialysis (TTS), hypertension, history of CVA, history of myocardial infarction, CHF, tobacco dependence, chronic atrial fibrillation on anticoagulation (Eliquis 2.5 mg twice daily), [id number] type 2 diabetes mellitus, COPD, hyperlipidemia, bipolar disorder, CAD status post stent who presented with 2-3 weeks of chest pain that was rated 8/10, constant, associated with shortness of breath, not worsened with exertion or relieved by rest, and radiates to her back. The patient endorsed presenting to an outside hospital approximately 1 week ago with the same complaint, and she was discharged from the ED. Upon presentation, the patient was found to be hemodynamically stable; however, the patient was hypoxic at 86% on room air consistent with acute hypoxic respiratory failure. The patient required supplemental oxygen. Patient underwent VQ scan that was consistent with pulmonary embolism. Troponins were found to be negative x3. Cardiology was consulted for additional management. The patient was admitted for ACS work-up. Further chart review revealed that the patient had a stress test approximately 3 months ago at outside hospital that was relatively unremarkable. Patient was successfully weaned to room air. She was counseled about how I will pulmonary embolism can result in her symptoms, and the patient expressed understanding. Cardiology recommended . Patient is medically clear for discharge. Procedures: None. Hospital course: Patient 66-year-old female past medical history of ESRD on hemodialysis (TTS), hypertension, history of CVA, history of myocardial infarction, CHF, tobacco dependence, chronic atrial fibrillation on anticoagulation (Eliquis 2.5 mg twice daily), [id number] type 2 diabetes mellitus, COPD, hyperlipidemia, bipolar disorder, CAD status post stent who presented with 2-3 weeks of chest pain that was rated 8/10, constant, associated with shortness of breath, not worsened with exertion or relieved by rest, and radiates to her back. The patient endorsed presenting to an outside hospital approximately 1 week ago with the same complaint, and she was discharged from the ED. Upon presentation, the patient was found to be hemodynamically stable; however, the patient was hypoxic at 86% on room air consistent with acute hypoxic respiratory failure. The patient required supplemental oxygen. Patient underwent VQ scan that was consistent with pulmonary embolism. Troponins were found to be negative x3. Cardiology was consulted for additional management. The patient was admitted for ACS work-up. Further chart review revealed that the patient had a stress test approximately 3 months ago at outside hospital that was relatively unremarkable. Patient was successfully weaned to room air. She was counseled about how pulmonary embolism can result in her symptoms, and the patient expressed understanding. Cardiology recommended continuation of goal-directed therapy with respect to her atrial flutter, and they recommended EP consultation in outpatient setting regarding long-term rhythm control options. Hematology/oncology was consulted regarding anticoagulation recommendations in the setting of ESRD + chronic A. fib/flutter + acute pulmonary embolism. The recommendation was to increase Eliquis to 5 mg twice daily, and the patient will follow-up with hematology/oncology in outpatient setting regarding further work-up for possible antibiotics. Patient is medically clear for discharge. Disposition: 01 HOME / SELF CARE / HOMELESS Final Discharge Diagnosis (Prints w/discharge instructions): Acute pulmonary embolism, acute hypoxic respiratory failure, chronic diastolic heart failure, ESRD on hemodialysis, hypertension, noninsulin-dependent type 2 diabetes mellitus, chronic atrial fibrillation on anticoagulation, COPD, bipolar 1 disorder, hyperlipidemia, tobacco dependence Time spent for discharge: 45 min Core Measure Documentation - Palliative Care Palliative Care/ Comfort Measures: Not Applicable - Core Measures Any of the following diagnoses?: DVT/PE, history only - VTE Discharge Requirements Deep Vein Thrombosis/Pulmonary Embolism Present on Admission: Yes Has pt received <5 days of overlap therapy or INR<2.0: No Anticoagulant overlap therapy prescribed at discharge: Yes Exam - Constitutional Vitals: Temp Pulse Resp BP Pulse Ox 98.7 F 71 16 146/79 100 02/28/22 08:25 02/28/22 08:25 02/28/22 08:25 02/28/22 08:25 02/28/22 08:25 General appearance: Present: no acute distress, well-nourished - EENT Eyes: Present: PERRL, EOM intact ENT: hearing intact, clear oral mucosa, dentition normal - Neck Neck: Present: supple, normal ROM - Respiratory Respiratory effort: normal Respiratory: bilateral: CTA - Cardiovascular Rhythm: irregularly irregular Heart Sounds: Present: S1 & S2 - Extremities Extremities: no ischemia, pulses intact, pulses symmetrical, No edema, normal temperature, normal color, Full ROM Peripheral Pulses: within normal limits - Abdominal General gastrointestinal: Present: soft, non-tender, non-distended, normal bowel sounds Female genitourinary: Present: deferred - Rectal Rectal Exam: deferred - Integumentary Integumentary: Present: clear, warm, dry - Musculoskeletal Musculoskeletal: strength equal bilaterally - Psychiatric Psychiatric: appropriate mood/affect, intact judgment & insight, memory intact, cooperative - Neurologic Neurologic: CNII-XII intact, moves all extremities - Allied Health Allied health notes reviewed: nursing Plan Activity: advance as tolerated Diet: low salt, diabetic Additional Instructions: Patient 66-year-old female past medical history of ESRD on hemodialysis (TTS), hypertension, history of CVA, history of myocardial inf arction, CHF, tobacco dependence, chronic atrial fibrillation on anticoagulation (Eliquis 2.5 mg twice daily), onp-gwrgxdy-pieeujuox type 2 diabetes mellitus, COPD, hyperlipidemia, bipolar disorder, CAD status post stent who presented with 2-3 weeks of chest pain that was rated 8/10, constant, associated with shortness of breath, not worsened with exertion or relieved by rest, and radiates to her back. The patient endorsed presenting to an outside hospital approximately 1 week ago with the same complaint, and she was discharged from the ED. Upon presentation, the patient was found to be hemodynamically stable; however, the patient was hypoxic at 86% on room air consistent with acute hypoxic respiratory failure. The patient required supplemental oxygen. Patient underwent VQ scan that was consistent with pulmonary embolism. Troponins were found to be negative x3. Cardiology was consulted for additional management. The patient was admitted for ACS work-up. Further chart review revealed that the patient had a stress test approximately 3 months ago at outside hospital that was relatively unremarkable. Patient was successfully weaned to room air. She was counseled about how pulmonary embolism can result in her symptoms, and the patient expressed understanding. Cardiology recommended continuation of goal-directed therapy with respect to her atrial flutter, and they recommended EP consultation in outpatient setting regarding long-term rhythm control options. Hematology/oncology was consulted regarding anticoagulation recommendations in the setting of ESRD + chronic A. fib/flutter + acute pulmonary embolism. The recommendation was to increase Eliquis to 5 mg twice daily, and the patient will follow-up with hematology/oncology in outpatient setting regarding further work-up for possible antibiotics. Patient is medically clear for discharge. Care Plan Goals: Patient is medically clear for discharge. Assessment: Patient 66-year-old female past medical history of ESRD on hemodialysis (TTS), hypertension, history of CVA, history of myocardial infarction, CHF, tobacco dependence, chronic atrial fibrillation on anticoagulation (Eliquis 2.5 mg twice daily), [id number]-kubhndtgp type 2 diabetes mellitus, COPD, hyperlipidemia, bipolar disorder, CAD status post stent who presented with 2-3 weeks of chest pain that was rated 8/10, constant, associated with shortness of breath, not worsened with exertion or relieved by rest, and radiates to her back. The patient endorsed presenting to an outside hospital approximately 1 week ago with the same complaint, and she was discharged from the ED. Upon presentation, the patient was found to be hemodynamically stable; however, the patient was hypoxic at 86% on room air consistent with acute hypoxic respiratory failure. The patient required supplemental oxygen. Patient underwent VQ scan that was consistent with pulmonary embolism. Troponins were found to be negative x3. Cardiology was consulted for additional management. The patient was admitted for ACS work-up. Further chart review revealed that the patient had a stress test approximately 3 months ago at outside hospital that was relatively unremarkable. Patient was successfully weaned to room air. She was counseled about how pulmonary embolism can result in her symptoms, and the patient expressed understanding. Cardiology recommended continuation of goal-directed therapy with respect to her atrial flutter, and they recommended EP consultation in outpatient setting regarding long-term rhythm control options. Hematology/oncology was consulted regarding anticoagulation recommendations in the setting of ESRD + chronic A. fib/flutter + acute pulmonary embolism. The recommendation was to increase Eliquis to 5 mg twice daily, and the patient will follow-up with hematology/oncology in outpatient setting regarding further work-up for possible antibiotics. Patient is medically clear for discharge. Follow up with: PALMER ROSAS,VICENTA, DO [Primary Care Provider] - 3-5 Days Forms: Work/School Release Form Prescriptions: Apixaban [Eliquis] 5 mg PO Q12HR #60 tablet
[2022-02-28] MEDS ORDERED: APIXABAN 5 MG TAB PO SCH (10:00)
[2022-02-28] MEDS ORDERED: ASPIRIN EC 81 MG TAB PO SCH (10:00)
[2022-02-28] MEDS: QUEtiapine 100 MG TAB PO SCH (10:19)
[2022-02-28] MEDS: cloNIDine 0.1 MG TAB PO SCH (10:27)
[2022-02-28] MEDS: AMIODARONE 200 MG TAB PO SCH (10:27)
[2022-02-28] MEDS: METOPROLOL TARTRATE 50 MG TAB PO SCH (10:27)
--- NOTE | 2022-02-28 10:31 | Electrocardiograph Report ---
[facility] Test Date: 2022-02-27 Test Time: 09:56:12 Pat Name: TEETEE MARTINEZ Department: Room: A485 1 Gender: F Personal Care Aid: JERI : 1955 Requested By: JENNIE DE LA GARZA Order Number: [id number] Reading MD: Mike Davis Measurements Intervals [place] Rate: 119 P: OR: QRS: -12 QRSD: 92 T: 79 QT: 345 QTc: 500 Interpretive Statements Atrial flutter with 2:1 AV block Left ventricular hypertrophy Anterior Q waves, Compared to ECG 02/14/2022 12:17:06 2:1 AV block now present Left ventricular hypertrophy now present Q waves now present Atrial-paced complex(es) or rhythm no longer present Myocardial infarct finding no longer present Electronically Signed On 02-28-2022 10:30:53 EDT by Mike Davis
--- NOTE | 2022-02-28 10:33 | Progress Note ---
Assessment and Plan Chest pain: 66-year-old woman who presents with chest pain and atrial flutter. Chest pain is atypical, unlikely to be ischemic. Lexiscan thallium stress test done last month was normal, no further ischemic assessment is indicated. Continue guideline directed medical therapy for coronary artery disease and patent mid and distal LAD stents. Pulmonary embolism: She has a positive pulmonary perfusion study, high probability for pulmonary embolism. It will be noted that the patient is on Eliquis 2.5 mg on presentation, indicated for her paroxysmal atrial tachyarrhythmias. We will defer to pulmonary service for assessment of this apparent failure of Eliquis, suggested remedies may include a switch to warfarin versus increase in dose of Eliquis to 5 mg. Atrial flutter fibrillation: With respect to atrial flutter, rate is well controlled, will continue metoprolol and amiodarone, and referred for EP consultation as an outpatient regarding long-term rhythm control options. Subjective Date of service: 02/28/22 Principal diagnosis: Chest pain Interval history: Patient looks and feels comfortable today. On further review of her and hospital records, we found that she was here last month and underwent a Lexiscan thallium stress test, which did not have a formal report in the record. My review of the images show that the myocardial perfusion scan was normal. In addition, a pulmonary perfusion study done yesterday was reported high probability for PE. This morning, her telemetry shows that there is a recurrence of atrial flutter with variable ventricular conduction. Objective Vital Signs Temp Pulse Resp Resp BP BP Pulse Ox 02/28/22 08:25 98.7 F 71 16 146/79 100 02/28/22 07:48 99 02/28/22 05:34 18 02/28/22 04:57 97.9 F 70 17 144/82 100 02/27/22 23:54 97.7 F 73 17 160/89 100 02/27/22 22:00 100 02/27/22 21:14 10 L 02/27/22 20:06 18 100 02/27/22 20:05 18 02/27/22 20:02 99.2 F 85 18 200/102 3 L 02/27/22 19:49 84 201/102 100 02/27/22 19:40 18 02/27/22 15:25 98 - Physical Examination General: No Apparent Distress HEENT: Positive: PERRL Neck: Positive: neck supple Cardiac: Positive: irregularly irregular Lungs: Positive: Decreased Breath Sounds Neuro: Positive: Grossly Intact Abdomen: Positive: Soft Skin: Positive: Clear Extremities: Absent: edema - Labs and Meds Cardiac Enzymes 02/27/22 Range/Units 10:20 AST 13 (5-40) units/L Coagulation 02/27/22 02/27/22 Range/Units 10: 18:30 PT 14.8 15.1 H (12.2-14.9) Sec. INR 1.04 1.07 (0.87-1.13) APTT 39.6 H 41.1 H (24.2-36.6) Sec. CBC 02/27/22 02/27/22 02/28/22 Range/Units 10: 18:30 06:03 WBC 9.1 9.4 8.3 (4.5-11.0) K/mm3 RBC 4.34 4.35 3.87 (3.65-5.03) M/mm3 Hgb 13.6 13.7 11.9 (10.1-14.3) gm/dl Hct 41.6 42.0 37.8 (30.3-42.9) % Plt Count 172 179 147 (140-440) K/mm3 Lymph # (Auto) 1.5 1.8 (1.2-5.4) K/mm3 [place] # (Auto) 0.6 0.5 (0.0-0.8) K/mm3 Eos # (Auto) 0.2 0.4 (0.0-0.4) K/mm3 Baso # (Auto) 0.1 0.1 (0.0-0.1) K/mm3 Comprehensive Metabolic Panel 02/27/22 02/27/22 02/27/22 Range/Units 10:20 10: 18:30 Sodium 141 (137-145) mmol/L Potassium 3.9 (3.6-5.0) mmol/L Chloride 97.9 L (98-107) mmol/L Carbon Dioxide 23 (22-30) mmol/L BUN 23 H (7-17) mg/dL Creatinine 3.1 H 3.4 H (0.6-1.2) mg/dL Glucose 80 (65-100) mg/dL Calcium 10.3 H (8.4-10.2) mg/dL Direct Bilirubin 0.2 (0-0.2) mg/dL Indirect Bilirubin 0.8 mg/dL AST 13 (5-40) units/L ALT 10 (7-56) units/L Alkaline Phosphatase 92 (35-129) units/L Total Protein 7.0 (6.3-8.2) g/dL Albumin 5.0 (3.9-5) g/dL 02/28/22 Range/Units 06:03 Sodium 138 (137-145) mmol/L Potassium 4.4 (3.6-5.0) mmol/L Chloride 99.0 (98-107) mmol/L Carbon Dioxide 24 (22-30) mmol/L BUN 31 H (7-17) mg/dL Creatinine 4.0 H (0.6-1.2) mg/dL Glucose 84 (65-100) mg/dL Calcium 8.4 D (8.4-10.2) mg/dL Direct Bilirubin (0-0.2) mg/dL Indirect Bilirubin mg/dL AST (5-40) units/L ALT (7-56) units/L Alkaline Phosphatase (35-129) units/L Total Protein (6.3-8.2) g/dL Albumin (3.9-5) g/dL
--- NOTE | 2022-02-28 10:39 | Electrocardiograph Report ---
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
--- NOTE | 2022-02-28 10:51 | Hem/Onc Consultation ---
History of Present Illness - Reason for Consult Consult date: 02/28/22 Esrd, PE. - History of Present Illness Heme consult note Televisit cart unavailable--Discussed with RN and Dr. Ruiz. CPT 47480 Dx PE This is a 66yo female who presents to [facility] ED with complaints of left sided chest pain and tightness. Past medical history of ESRD on HD (T,R,Sa), HTN, CVA, NC, CHF, nicotine dependence, chronic afib on renal dose Eliquis, DM, CKD, COPD, HLD, Bipolar Disorder, CAD s/p stent placement. VQ scan revealed high probability of pulmonary embolism. Patient started on therapeutic anticoagulation with heparin and transitioned back to Eliquis. Followed by Nephrology and Cardiology. Hematology consulted for evaluation of PE and medical management. Patient currently receiving HD Complains of chest pain, on and off, but feels better overall. Pharmacy unavailable at this time to provide medications; Discussed receiving medications at an outside pharmacy instead, if being discharged. DATA REVIEWED BELOW IMP: Clotting while Eliquis, with acute PE Investigate compliance with anticoagulant HIT due to HD, with normal platelet count is also possible PLAN: If not stable or not being discharged, labs to include clot mutation testing, pf 4 ab, consider argatroban drip If stable for discharge, ok for Eliquis 5mg BID Recommend Hematology outpatient follow-up Laboratory Last Values WBC 8.3 K/mm3 (4.5-11.0) 02/28/22 06:03 Hgb 11.9 gm/dl (10.1-14.3) 02/28/22 06:03 Hct 37.8 % (30.3-42.9) 02/28/22 06:03 Plt Count 147 K/mm3 (140-440) 02/28/22 06:03 PT 15.1 Sec. (12.2-14.9) H 02/27/22 18:30 INR 1.07 (0.87-1.13) 02/27/22 18:30 APTT 41.1 Sec. (24.2-36.6) H 02/27/22 18:30 D-Dimer 921.97 ng/mlDDU (0-234) H 02/27/22 10:20 Creatinine 4.0 mg/dL (0.6-1.2) H 02/28/22 06:03 AST 13 units/L (5-40) 02/27/22 10:20 ALT 10 units/L (7-56) 02/27/22 10:20 Alkaline Phosphatase 92 units/L (35-129) 02/27/22 10:20 Hepatitis A IgM Ab Non-reactive (NonReactive) 02/28/22 06:03 Hep Bs Antigen Non-reactive (Negative) 02/28/22 06:03 Hep B Core IgM Ab Non-reactive (NonReactive) 02/28/22 06:03 Hepatitis C Antibody Non-reactive (NonReactive) 02/28/22 06:03 Past History Past Medical History: acute NC, atrial fib, COPD, diabetes, heart failure, hypertension, stroke, other (See HPI) Past Surgical History: total knee replacement, Other (Pacemaker placement, cardiac stent placement) Social history: . denies: smoking, alcohol abuse, prescription drug abuse Family history: diabetes, hypertension Medications and Allergies Allergies Allergy/AdvReac Type Severity Reaction Status Date / Time apple AdvReac Hives Verified 02/27/22 09:44 aspirin AdvReac Unknown Verified 02/27/22 09:44 shell fish Allergy Swelling Uncoded 02/27/22 09:44 Home Medications Medication Instructions Recorded Confirmed Last Taken Type Quetiapine Fumarate [Seroquel] 100 mg PO BID 08/01/17 02/06/22 02/05/22 22:00 History Albuterol Mdi (or & Nicu Only) 2 puff IH QID PRN #1 inha 12/22/17 02/06/22 04/10/20 Rx [ProAir HFA Inhaler] Metoprolol [Lopressor TAB] 50 mg PO BID #60 tablet 05/29/20 02/06/22 02/05/22 22:00 Rx Amiodarone [Cordarone 200 MG TAB] 200 mg PO BID #60 tablet 01/22/22 02/06/22 02/05/22 22:00 Rx Aspirin EC [Halfprin EC] 81 mg PO QDAY #30 tablet 01/22/22 02/06/22 02/05/22 09:00 Rx Hydralazine HCl 50 mg PO TID 02/06/22 02/06/22 02/05/22 09:00 History cloNIDine [Catapres] 0.1 mg PO BID 02/06/22 02/06/2202/05/22 09:00 History Apixaban [Eliquis] 5 mg PO Q12HR #60 tablet 02/28/22 Unknown Rx Active Meds: Active Medications Acetaminophen (Acetaminophen 325 Mg Tab) 650 mg PO Q4H PRN PRN Reason: Pain MILD(1-3)/Fever >100.5/SILVA Albuterol (Albuterol 2.5 Mg/3 Ml Nebu) 2.5 mg IH Q4HRT PRN PRN Reason: Shortness Of Breath Amiodarone HCl (Amiodarone 200 Mg Tab) 200 mg PO BID [facility] Last Admin: 02/27/22 21:15 Dose: 200 mg Apixaban (Apixaban 5 Mg Tab) 5 mg PO Q12HR [facility]; Protocol Aspirin (Aspirin Ec 81 Mg Tab) 81 mg PO QDAY [facility] Clonidine HCl (Clonidine 0.1 Mg Tab) 0.1 mg PO BID [facility] Last Admin: 02/27/22 21:14 Dose: 0.1 mg Hydralazine HCl (Hydralazine 25 Mg Tab) 50 mg PO Q8HR [facility] Last Admin: 02/28/22 05:29 Dose: 50 mg Sodium Chloride (Nacl 0.9%) 100 mls @ 999 mls/hr IV KARLENE PRN PRN Reason: Hypotension Metoprolol Tartrate (Metoprolol Tartrate 50 Mg Tab) 50 mg PO BID [facility] Last Admin: 02/27/22 21:14 Dose: 50 mg Morphine Sulfate (Morphine 4 Mg/1 Ml Inj) 2 mg IV Q8H PRN PRN Reason: Pain , Severe (7-10) Last Admin: 02/27/22 18:11 Dose: 2 mg Ondansetron HCl (Ondansetron 4 Mg/2 Ml Inj) 4 mg IV Q8H PRN PRN Reason: Nausea And Vomiting Oxycodone/Acetaminophen (Oxycodone /Acetaminophen 5-325mg Tab) 1 tab PO Q6H PRN PRN Reason: Pain, Moderate (4-6) Last Admin: 02/28/22 05:34 Dose: 1 tab Quetiapine Fumarate (Quetiapine 100 Mg Tab) 100 mg PO BID [facility] Last Admin: 02/27/22 21:27 Dose: 100 mg Sodium Chloride (Sodium Chloride 0.9% 10 Ml Flush Syringe) 10 ml IV BID [facility] Last Admin: 02/27/22 21:18 Dose: 10 ml Sodium Chloride (Sodium Chloride 0.9% 10 Ml Flush Syringe) 10 ml IV PRN PRN PRN Reason: LINE FLUSH Exam - Constitutional Vitals: Last Vital Signs Temp 98.7 F 02/28/22 08:25 Pulse 71 02/28/22 08:25 Resp 16 02/28/22 08:25 BP 146/79 02/28/22 08:25 Pulse Ox 100 02/28/22 08:25 Results - Labs lab Results: Laboratory Results - last 24 hr 02/27/22 02/27/22 02/27/22 10:20 10:20 10:20 WBC 9.1 RBC 4.34 Hgb 13.6 Hct 41.6 MCV 96 MCH 31 MCHC 33 RDW 18.6 H Plt Count 172 Lymph % (Auto) 16.0 [place] % (Auto) 6.1 Eos % (Auto) 2.4 Baso % (Auto) 0.6 Lymph # (Auto) 1.5 [place] # (Auto) 0.6 Eos # (Auto) 0.2 Baso # (Auto) 0.1 Seg Neutrophils % 74.9 H Seg Neutrophils # 6.8 PT 14.8 INR 1.04 APTT 39.6 H D-Dimer 921.97 H Sodium 141 Potassium 3.9 Chloride 97.9 L Carbon Dioxide 23 Anion Gap 24 BUN 23 H Creatinine 3.1 H Estimated GFR 18 BUN/Creatinine Ratio 7 Glucose 80 Calcium 10.3 H Total Bilirubin Direct Bilirubin Indirect Bilirubin AST ALT Alkaline Phosphatase Troponin T 0.017 Total Protein Albumin Albumin/Globulin Ratio Lipase Hepatitis A IgM Ab Hep Bs Antigen Hep B Core IgM Ab Hepatitis C Antibody 02/27/22 02/27/22 02/27/22 10:20 12:25 18:30 WBC RBC Hgb Hct MCV MCH MCHC RDW Plt Count Lymph % (Auto) [place] % (Auto) Eos % (Auto) Baso % (Auto) Lymph # (Auto) [place] # (Auto) Eos # (Auto) Baso # (Auto) Seg Neutrophils % Seg Neutrophils # PT INR APTT D-Dimer Sodium Potassium Chloride Carbon Dioxide Anion Gap BUN Creatinine Estimated GFR BUN/Creatinine Ratio Glucose Calcium Total Bilirubin 1.00 Direct Bilirubin 0.2 Indirect Bilirubin 0.8 AST 13 ALT 10 Alkaline Phosphatase 92 Troponin T 0.016 < 0.010 Total Protein 7.0 Albumin 5.0 Albumin/Globulin Ratio 2.5 Lipase 15 Hepatitis A IgM Ab Hep Bs Antigen Hep B Core IgM Ab Hepatitis C Antibody 02/27/22 02/27/22 02/27/22 18:30 18:30 18:30 WBC 9.4 RBC 4.35 Hgb 13.7 Hct 42.0 MCV 97 MCH 31 MCHC 33 RDW 18.7 H Plt Count 179 Lymph % (Auto) [place] % (Auto) Eos % (Auto) Baso % (Auto) Lymph # (Auto) [place] # (Auto) Eos # (Auto) Baso # (Auto) Seg Neutrophils % Seg Neutrophils # PT 15.1 H INR 1.07 APTT 41.1 H D-Dimer Sodium Potassium Chloride Carbon Dioxide Anion Gap BUN Creatinine 3.4 H Estimated GFR 16 BUN/Creatinine Ratio Glucose Calcium Total Bilirubin Direct Bilirubin Indirect Bilirubin AST ALT Alkaline Phosphatase Troponin T Total Protein Albumin Albumin/Globulin Ratio Lipase Hepatitis A IgM Ab Hep Bs Antigen Hep B Core IgM Ab Hepatitis C Antibody 02/28/22 02/28/22 02/28/22 06:03 06:03 06:03 WBC 8.3 RBC 3.87 Hgb 11.9 Hct 37.8 MCV 98 H MCH 31 MCHC 32 RDW 18.8 H Plt Count 147 Lymph % (Auto) 21.8 [place] % (Auto) 6.5 Eos % (Auto) 5.1 H Baso % (Auto) 0.8 Lymph # (Auto) 1.8 [place] # (Auto) 0.5 Eos # (Auto) 0.4 Baso # (Auto) 0.1 Seg Neutrophils % 65.8 Seg Neutrophils # 5.4 PT INR APTT D-Dimer Sodium 138 Potassium 4.4 Chloride 99.0 Carbon Dioxide 24 Anion Gap 19 BUN 31 H Creatinine 4.0 H Estimated GFR 14 BUN/Creatinine Ratio 8 Glucose 84 Calcium 8.4 D Total Bilirubin Direct Bilirubin Indirect Bilirubin AST ALT Alkaline Phosphatase Troponin T Total Protein Albumin Albumin/Globulin Ratio Lipase Hepatitis A IgM Ab Non-reactive Hep Bs Antigen Non-reactive Hep B Core IgM Ab Non-reactive Hepatitis C Antibody Non-reactive
[2022-02-28] MEDS ORDERED: REGADENOSON 0.4 MG/5 ML INJ IV ONE (11:19)
[2022-02-28] MEDS: MORPHINE 4 MG/1 ML INJ IV PRN (12:43)
[2022-02-28 13:23] VITALS: BP 129/68
== END 2022-02-28 17:15 | disposition home or self-care (01) ==
LOC: ED 09:40 → INTOOBSV 14:56 → 4A 14:56
PROVIDERS: ADMIT Internal Medicine; ATTEND Student in an Organized Health Care Education/Training Program
DX: J96.01 Acute respiratory failure with hypoxia (principal); R07.89 Other chest pain; I13.2 Hypertensive heart and chronic kidney disease with heart failure and with stage 5 chronic kidney disease, or end stage renal disease; I50.33 Acute on chronic diastolic (congestive) heart failure; N18.6 End stage renal disease; E11.22 Type 2 diabetes mellitus with diabetic chronic kidney disease; I26.99 Other pulmonary embolism without acute cor pulmonale; J44.9 Chronic obstructive pulmonary disease, unspecified; I48.11 Longstanding persistent atrial fibrillation; F31.89 Other bipolar disorder; E78.2 Mixed hyperlipidemia; E78.5 Hyperlipidemia, unspecified; Z99.2 Dependence on renal dialysis; Z96.659 Presence of unspecified artificial knee joint; Z79.899 Other long term (current) drug therapy; Z98.890 Other specified postprocedural states; Z95.1 Presence of aortocoronary bypass graft
CPT/HCPCS: 36415; 71045; 78580; 80048; 80074; 80076; 82565; 83690; 84484; 85025; 85027; 85379; 85610; 85730; 93005; 94760; 96374; 96375; 96376; 99291; A9540; G0378; J1644; J2270; J2405; J3010; J2785

== ENCOUNTER 2022-03-02 13:53 | Inpatient (IN) | payer MEDICARE ==
[2022-03-02] MEDS ORDERED: dilTIAZem 25 MG/5 ML INJ IV ONE (14:24)
[2022-03-02] MEDS ORDERED: fentaNYL 100 MCG/2 ML INJ IV ONE (14:25)
[2022-03-02] MEDS ORDERED: ONDANSETRON 4 MG/2 ML INJ IV ONE (14:25)
--- NOTE | 2022-03-02 14:40 | Emergency Department Report ---
HPI - General Chief Complaint: Chest Pain Time Seen by Provider: 03/02/22 14:07 - HPI HPI: Room 20 Patient is a 66-year-old female present with chief complaint of chest pain. Patient states she was at dialysis and receiving hemodialysis when she developed onset of substernal chest pain described as sharp and squeezing in nature. Patient admits to shortness of breath, diaphoresis and nausea without vomiting associated with the pain. Patient denies pleurisy or palpitations. Patient currently gives her pain a score of 10/10. 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 Purdy) is in the emergency department and states the patient had a negative stress test approximately 2 weeks ago and had a VQ scan that was high probability for PE approximately 2 days ago. The patient had already been started on Eliquis for atrial fibrillation ED Past Medical Hx - Past Medical History Hx Hypertension: Yes Hx CVA: Yes (right sided weakness) Hx Heart Attack/AMI: Yes (1 stent) Hx Congestive Heart Failure: Yes Hx Diabetes: Yes Hx Renal Disease: Yes (RENAL INSUFFICIENCY- stent left kidney) Hx Psychiatric Treatment: Yes (BIPOLAR/SCHIZOPHRENIA) Hx COPD: Yes Additional medical history: HIGH CHOLESTEROL - Surgical History Hx Coronary Stent: Yes Hx Pacemaker: Yes Additional Surgical History: stent placement x 2 in 2014, knee surgery 11/2017 - Family History Family history: no significant - Social History Smoking Status: Current Every Day Smoker (1/14 pack/day) Substance Use Type: None (Denies illicit drug use) - Medications Home Medications: Home Medications Medication Instructions Recorded Confirmed Last Taken Type Quetiapine Fumarate [Seroquel] 100 mg PO BID 08/01/17 02/06/22 02/05/22 22:00 History Albuterol Mdi (or & Nicu Only) 2 puff IH QID PRN #1 inha 12/22/17 02/06/22 04/10/20 Rx [ProAir HFA Inhaler] Metoprolol [Lopressor TAB] 50 mg PO BID #60 tablet 05/29/20 02/06/22 02/05/22 22:00 Rx Amiodarone [Cordarone 200 MG TAB] 200 mg PO BID #60 tablet 01/22/22 02/06/22 02/05/22 22:00 Rx Aspirin EC [Halfprin EC] 81 mg PO QDAY #30 tablet 01/22/22 02/06/2202/05/22 09:00 Rx Hydralazine HCl 50 mg PO TID 02/06/22 02/06/22 02/05/22 09:00 History cloNIDine [Catapres] 0.1 mg PO BID 02/06/22 02/06/22 02/05/22 09:00 History Apixaban [Eliquis] 5 mg PO BID #60 tab 02/28/22 Unknown Rx ED Review of Systems ROS: Stated complaint: CHEST PAIN Other details as noted in HPI Constitutional: diaphoresis Eyes: denies: eye pain ENT: denies: throat pain Respiratory: shortness of breath Cardiovascular: chest pain. denies: palpitations Endocrine: no symptoms reported Gastrointestinal: nausea. denies: vomiting Musculoskeletal: denies: back pain Neurological: denies: headache Physical Exam - Physical Exam Vital Signs: Vital Signs 03/02/22 13:58 Temperature 98.7 F Pulse Rate 125 H Respiratory 16 Rate Blood Pressure 160/100 [Left] O2 Sat by Pulse 100 Oximetry Physical Exam: GENERAL: The patient is well-developed well-nourished female lying on stretcher holding chest appear to be in moderate. [] HEENT: Normocephalic. Atraumatic. Extraocular motions are intact. Patient has moist mucous membranes. NECK: Supple. Trachea midline CHEST/LUNGS: Clear to auscultation. There is no respiratory distress noted. HEART/CARDIOVASCULAR: Irregularly irregular. There is tachycardia. There is no gallop rub or murmur. ABDOMEN: Abdomen is soft, nontender. Patient has normal bowel sounds. There is no abdominal distention. SKIN: There is no rash. There is no edema. There is no diaphoresis. NEURO: The patient is awake, alert, and oriented. The patient is cooperative. The patient has no focal neurologic deficits. The patient has normal speech. GCS 15 MUSCULOSKELETAL: There is no evidence of acute injury. ED Course Vital Signs 03/02/22 13:58 Temperature 98.7 F Pulse Rate 125 H Respiratory 16 Rate Blood Pressure 160/100 [Left] O2 Sat by Pulse 100 Oximetry ED Medical Decision Making - Radiology Data Radiology results: report reviewed (CT chest), image reviewed (CT chest) [facility] [address] [place] [address] Cat Scan Report Signed Patient: TEETEE MARTINEZ MR#: [id number] : 1955 Acct:[id number] Age/Sex: 66 / F ADM Date: 03/02/22 Loc: ED Attending Dr: Ordering Physician: MARLA BARRY MD Date of Service: 03/02/22 Procedure(s): CT angio chest Accession Number(s): [id number] cc: MARLA BARRY MD CT angio chest INDICATION / CLINICAL INFORMATION: Chest pain OMNIPAQUE 350 100ML DIALYSIS PT. TECHNIQUE: Axial CT images were obtained through the chest after injection of 100 cc of Omnipaque 350 IV contrast. 3 plane MIP and/or 3D reconstructions were produced. All CT scans at this location are performed using CT dose reduction for ALARA by means of automated exposure control. COMPARISON: Chest radiograph from 02/27/2022. FINDINGS: PULMONARY ARTERIES: No central or segmental pulmonary embolus. THORACIC AORTA: Mild atherosclerotic calcification without acute abnormality. HEART: There is cardiac enlargement. No pericardial effusion. Left- sided cardiac conduction device leads terminate within the right atrium and right ventricle. CORONARY ARTERY CALCIFICATION: Stent or calcifications in the LAD. LYMPHADENOPATHY: No significant thoracic lymphadenopathy. LUNGS/PLEURA: There is mild emphysema. No acute interstitial or airspace disease. No pleural effusion or pneumothorax. OTHER FINDINGS: Right IJ dialysis catheter terminates in the right atrium. UPPER ABDOMEN: No acute findings. SKELETAL SYSTEM: No acute osseous findings. IMPRESSION: 1. No evidence of pulmonary embolus. 2. Cardiac enlargement. No acute findings in the chest. 3. Other incidental findings as above. Signer Name: Princess Huggins MD Signed: 03/02/2022 4:38 PM Workstation Name: [id number] Transcribed By: DANNIE Dictated By: PRINCESS HUGGINS MD Electronically Authenticated By: PRINCESS HUGGINS MD Signed Date/Time: 03/02/22 163 DD/ 163 TD/TT: - Differential Diagnosis PE, ACS, pericarditis, GERD Critical care attestation.: If time is entered above; I have spent that time in minutes in the direct care of this critically ill patient, excluding procedure time. ED Disposition Clinical Impression: Chest pain, Atrial fibrillation with RVR Disposition: ADMITTED INPATIENT Is pt being admited?: Yes Does the pt Need Aspirin: No Condition: Fair Instructions: Nonspecific Chest Pain, Adult Time of Disposition: 17:34 (Care transferred to hospitalist (Dr. Henning))
[2022-03-02] MEDS ORDERED: HEPARIN 10,000 UNITS/10 ML VIAL IV PRN (14:52)
[2022-03-02] MEDS ORDERED: SODIUM CHLORIDE 0.9% 100 ML IV PRN (14:52)
--- NOTE | 2022-03-02 14:52 | Consultation ---
History of Present Illness - Reason for Consult Consult date: 03/02/22 end stage renal disease Requesting physician: MARLA BARRY - History of Present Illness The patient is a 66 YO female known to our service with history of DM-2, HTN, HLD, Bipolar Disorder, CAD S/P Stent Placement, Paroxysmal atrial fibrillation, HFpEF, COPD, Anemia and ESRD on hemodialysis (TTS) who presented to [facility] ED 03/02/22 from outpatient hemodialysis center with c/o CP while on HD. Patient states that she experienced a sudden onset of chest pain while on HD, pain was 10/10, constant, associated with shortness of breath, diaphoresis and nausea without vomiting. Patient was admitted multiple times with CP, with recent admission found to have high prob V/Q while patient is on Eliquis. Patient has some baseline dyspnea on exertion. Patient denies any abd pain, dizziness, cough, weakness, fever, chills, rash, blurry vision, hematuria or hemoptysis. CTA chest negative for PE. Patient was admitted for further evaluation. Labs and imaging noted. Nephrology was consulted for ESRD management. Past History Past Medical History: other (See HPI.) Medications and Allergies Allergies Allergy/AdvReac Type Severity Reaction Status Date / Time apple AdvReac Hives Verified 02/27/22 09:44 aspirin AdvReac Unknown Verified 02/27/22 09:44 shell fish Allergy Swelling Uncoded 02/27/22 09:44 Home Medications Medication Instructions Recorded Confirmed Last Taken Type Quetiapine Fumarate [Seroquel] 100 mg PO BID 08/01/17 03/02/22 03/01/22 22:00 History Albuterol Mdi (or & Nicu Only) 2 puff IH QID PRN #1 inha 12/22/17 03/03/22 03/02/22 10:00 Rx [ProAir HFA Inhaler] Metoprolol [Lopressor TAB] 50 mg PO BID #60 tablet 05/29/20 03/02/22 03/01/22 22:00 Rx Amiodarone [Cordarone 200 MG TAB] 200 mg PO BID #60 tablet 01/22/22 03/02/22 03/02/22 10:00 Rx Aspirin EC [Halfprin EC] 81 mg PO QDAY #30 tablet 01/22/22 03/03/22 02/05/22 09:00 Rx Hydralazine HCl 50 mg PO TID 02/06/22 03/02/22 03/01/22 22:00 History cloNIDine [Catapres] 0.1 mg PO BID 02/06/22 03/03/22 03/02/22 10:00 History Apixaban [Eliquis] 5 mg PO BID #60 tab 02/28/22 03/02/22 03/02/22 10:00 Rx Gabapentin 1 mg PO BID 03/02/22 03/03/22 Unknown History Losartan [Cozaar] 50 mg PO QDAY 03/02/22 03/03/22 03/01/22 10:00 History Nitroglycerin [Nitro-Bid] 0.1 mg TRANSDERMA Q6HR PRN 03/02/22 03/03/22 Unknown History Pantoprazole [Protonix] 40 mg PO QDAY 03/02/22 03/03/22 03/02/22 10:00 History Sennosides/Docusate Sodium [Senna 8.6 mg PO DAILY 03/02/22 03/03/22 03/01/22 10:00 History Plus 8.6-50 mg Tablet] carvediloL [Coreg] 25 mg PO BID 03/02/22 03/03/22 Unknown History dilTIAZem 240 mg PO DAILY 03/02/22 03/03/22 Unknown History methIMAzole [Methimazole] 10 mg PO TID 03/02/22 03/03/22 03/02/22 10:00 History methocarbamoL [Methocarbamol] 1 mg PO BID 03/02/22 03/03/22 Unknown History Review of Systems All systems: negative Exam - Vital Signs Vital signs: Vital Signs Temp Pulse Resp BP Pulse Ox 98.7 F 125 H 16 160/100 100 03/02/22 13:58 03/02/22 13:58 03/02/22 13:58 03/02/22 13:58 03/02/22 13:58 Results - Lab Results 03/03/22 05:03 03/03/22 05:03 Assessment and Plan 1. ESRD: Patient is on maintenance hemodialysis, TTS schedule. Last outpatient HD 03/02. Hemodialysis: . 2. FEN: UF with HD as tolerated. Monitor lytes and volume status. 3. Chest pain // H/o CAD s/p PCI: Troponin not elevated. CTa negative for PE. Monitor. 4. Paroxysmal A.fib with RVR: Rate control. Eliquis. Monitor. 5. Chronic HFpEF: Volume control thru HD. Fluid restriction, monitor I/O. 6. H/o COPD: Not in exacerbation. Nebs and O2 as needed. 7. Hypertension: Volume control with HD. Continue home BP meds. Monitor BP. Subjective: Patient was seen and examined at the bedside. Examination: General appearance: well-developed, appears stated age, no distress HEENT: atraumatic, ANA Neck: trachea midline Respiratory: ctab Heart: S1S2, no murmur Abdomen: soft, bowel sounds heard, NT Integumentary: no obvious rash Neurologic: AO, able to move extremities Ext: no edema Hemodialysis access: R IJ tunnel catheter, R arm AVG
[2022-03-02 15:04] LABS: Basophils % (Auto) 0.4 % (0.0-1.8); Eosinophils # (Auto) 0.4 K/mm3 (0.0-0.4); Eosinophils % (Auto) 5.2 % (0.0-4.3); Hematocrit 38.4 % (30.3-42.9); Hemoglobin 12.6 gm/dl (10.1-14.3); Lymphocytes # (Auto) 1.8 K/mm3 (1.2-5.4); Lymphocytes % (Auto) 21.3 % (13.4-35.0); Mean Corpuscular HGB Conc 33 % (30-34); Mean Corpuscular Volume 95 fl (79-97); Monocytes # (Auto) 0.6 K/mm3 (0.0-0.8); Monocytes % (Auto) 7.7 % (0.0-7.3); Platelet Count 135 K/mm3 (140-440); Red Blood Count 4.04 M/mm3 (3.65-5.03); Red Cell Distribution Width 18.3 % (13.2-15.2)
[2022-03-02 15:16] LABS: INR 0.96 (0.87-1.13)
[2022-03-02 15:31] LABS: Calcium 9.5 mg/dL (8.4-10.2)
[2022-03-02 15:32] LABS: Creatine Kinase MB 1.3 ng/mL (0.0-4.0)
[2022-03-02 15:42] LABS: Free T4 (Free Thyroxine) 1.77 ng/dL (0.76-1.46)
--- NOTE | 2022-03-02 16:42 | Cat Scan Report ---
CT angio chest INDICATION / CLINICAL INFORMATION: Chest pain OMNIPAQUE 350 100ML DIALYSIS PT. TECHNIQUE: Axial CT images were obtained through the chest after injection of 100 cc of Omnipaque 350 IV contrast. 3 plane MIP and/or 3D reconstructions were produced. All CT scans at this location are performed using CT dose reduction for ALARA by means of automated exposure control. COMPARISON: Chest radiograph from 02/27/2022. FINDINGS: PULMONARY ARTERIES: No central or segmental pulmonary embolus. THORACIC AORTA: Mild atherosclerotic calcification without acute abnormality. HEART: There is cardiac enlargement. No pericardial effusion. Left-sided cardiac conduction device le ads terminate within the right atrium and right ventricle. CORONARY ARTERY CALCIFICATION: Stent or calcifications in the LAD. LYMPHADENOPATHY: No significant thoracic lymphadenopathy. LUNGS/PLEURA: There is mild emphysema. No acute interstitial or airspace disease. No pleural effusion or pneumothorax. OTHER FINDINGS: Right IJ dialysis catheter terminates in the right atrium. UPPER ABDOMEN: No acute findings. SKELETAL SYSTEM: No acute osseous findings. IMPRESSION: 1. No evidence of pulmonary embolus. 2. Cardiac enlargement. No acute findings in the chest. 3. Other incidental findings as above. Signer Name: Remington Huggins MD Signed: 03/02/2022 4:38 PM Workstation Name: [id number]
[2022-03-02] MEDS ORDERED: ALBUTEROL 8.5 GM MDI INHALATION IH PRN (19:16)
[2022-03-02] MEDS ORDERED: ACETAMINOPHEN 325 MG TAB PO PRN (19:17)
[2022-03-02] MEDS ORDERED: METOCLOPRAMIDE 10 MG/2 ML INJ IV PRN (19:17)
[2022-03-02] MEDS ORDERED: ONDANSETRON 4 MG/2 ML INJ IV PRN (19:17)
--- NOTE | 2022-03-02 19:22 | History and Physical Report ---
History of Present Illness Date of examination: 03/02/22 Date of admission: 03/01/2023 Chief complaint: Missed hemodialysis History of present illness: Patient is a 66-year-old female present with chief complaint of chest pain. Patient states she was at dialysis and receiving hemodialysis when she developed onset of substernal chest pain described as sharp and squeezing in nature. Patient admits to shortness of breath, diaphoresis and nausea without vomiting associated with the pain. Patient denies pleurisy or palpitations. Patient currently gives her pain a score of 10/10. 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 The patient had already been started on Eliquis for atrial fibrillation - Past Medical History --Hypertension: Yes --CVA: Yes (right sided weakness) --Heart Attack/AMI: Yes (1 stent) --Congestive Heart Failure: Yes --Diabetes: Yes --Renal Disease: Yes (RENAL INSUFFICIENCY- stent left kidney) --Psychiatric Treatment: Yes (BIPOLAR/SCHIZOPHRENIA) --COPD: Yes --Additional medical history: HIGH CHOLESTEROL - Surgical History --Coronary Stent: Yes --Pacemaker: Yes --Additional Surgical History: stent placement x 2 in 2014, knee surgery 11/2017 - Family History --Family history: no significant - Social History --Smoking Status: Current Every Day Smoker (1/14 pack/day) --Substance Use Type: None (Denies illicit drug use) - Medications Home Medications: Home Medications Medication Instructions Recorded Confirmed Last Taken Type Quetiapine Fumarate [Seroquel] 100 mg PO BID 08/01/17 02/06/22 02/05/22 22:00 History Albuterol Mdi (or & Nicu Only) 2 puff IH QID PRN #1 inha 12/22/17 02/06/22 04/10/20 Rx [ProAir HFA Inhaler] Metoprolol [Lopressor TAB] 50 mg PO BID #60 tablet 05/29/20 02/06/22 02/05/22 22:00 Rx Amiodarone [Cordarone 200 MG TAB] 200 mg PO BID #60 tablet 01/22/22 02/06/22 02/05/22 22:00 Rx Aspirin EC [Halfprin EC] 81 mg PO QDAY #30 tablet 01/22/22 02/06/22 02/05/22 09:00 Rx Hydralazine HCl 50 mg PO TID 02/06/22 02/06/22 02/05/22 09:00 History cloNIDine [Catapres] 0.1 mg PO BID 02/06/22 02/06/22 02/05/22 09:00 History Apixaban [Eliquis] 5 mg PO BID #60 tab 02/28/22 Unknown Rx Review of Systems ROS: Stated complaint: CHEST PAIN Other details as noted in HPI Constitutional: diaphoresis Eyes: denies: eye pain ENT: denies: throat pain Respiratory: shortness of breath Cardiovascular: chest pain. denies: palpitations Endocrine: no symptoms reported Gastrointestinal: nausea. denies: vomiting Musculoskeletal: denies: back pain Neurological: denies: headache Medications and Allergies Allergies Allergy/AdvReac Type Severity Reaction Status Date / Time apple AdvReac Hives Verified 02/27/22 09:44 aspirin AdvReac Unknown Verified 02/27/22 09:44 shell fish Allergy Swelling Uncoded 02/27/22 09:44 Home Medications Medication Instructions Recorded Confirmed Last Taken Type Quetiapine Fumarate [Seroquel] 100 mg PO BID 08/01/17 03/02/22 03/01/22 22:00 History Albuterol Mdi (or & Nicu Only) 2 puff IH QID PRN #1 inha 12/22/17 03/03/22 03/02/22 10:00 Rx [ProAir HFA Inhaler] Metoprolol [Lopressor TAB] 50 mg PO BID #60 tablet 05/29/20 03/02/22 03/01/22 22:00 Rx Amiodarone [Cordarone 200 MG TAB] 200 mg PO BID #60 tablet 01/22/22 03/02/22 03/02/22 10:00 Rx Aspirin EC [Halfprin EC] 81 mg PO QDAY #30 tablet 01/22/22 03/03/22 02/05/22 09:00 Rx Hydralazine HCl 50 mg PO TID 02/06/22 03/02/22 03/01/22 22:00 History cloNIDine [Catapres] 0.1 mg PO BID 02/06/22 03/03/2222 10:00 History Apixaban [Eliquis] 5 mg PO BID #60 tab 02/28/22 03/02/22 03/02/22 10:00 Rx Gabapentin 1 mg PO BID 03/02/22 03/03/22 Unknown History Losartan [Cozaar] 50 mg PO QDAY 03/02/22 03/03/22 03/01/22 10:00 History Nitroglycerin [Nitro-Bid] 0.1 mg TRANSDERMA Q6HR PRN 03/02/22 03/03/22 Unknown History Pantoprazole [Protonix] 40 mg PO QDAY 03/02/22 03/03/22 03/02/22 10:00 History Sennosides/Docusate Sodium [Senna 8.6 mg PO DAILY 03/02/22 03/03/22 03/01/22 10:00 History Plus 8.6-50 mg Tablet] carvediloL [Coreg] 25 mg PO BID 03/02/22 03/03/22 Unknown History dilTIAZem 240 mg PO DAILY 03/02/22 03/03/22 Unknown History methIMAzole [Methimazole] 10 mg PO TID 03/02/22 03/03/22 03/02/22 10:00 History methocarbamoL [Methocarbamol] 1 mg PO BID 03/02/22 03/03/22 Unknown History Active Meds: Active Medications Heparin Sodium (Porcine) (Heparin 10,000 Units/10 Ml Vial) 2,000 unit IV KARLENE PRN PRN Reason: hemodialysis Sodium Chloride (Nacl 0.9%) 100 mls @ 999 mls/hr IV KARLENE PRN PRN Reason: Hypotension Exam - Constitutional Vitals: Temp Pulse Resp BP Pulse Ox 98.2 F 105 H 20 126/72 97 03/02/22 17:52 03/02/22 18:15 03/02/22 17:52 03/02/22 18:15 03/02/22 17:52 General appearance: Present: no acute distress, well-nourished - EENT Eyes: Present: PERRL ENT: hearing intact, clear oral mucosa - Neck Neck: Present: supple, normal ROM - Respiratory Respiratory effort: normal Respiratory: bilateral: CTA - Cardiovascular Heart rate: 78 Rhythm: regular Heart Sounds: Present: S1 & S2. Absent: rub, click - Extremities Extremities: pulses symmetrical, No edema Peripheral Pulses: within normal limits - Abdominal General gastrointestinal: Present: soft, non-tender, non-distended, normal bowel sounds Female genitourinary: Present: normal - Integumentary Integumentary: Present: clear, warm, dry - Musculoskeletal Musculoskeletal: gait normal, strength equal bilaterally - Psychiatric Psychiatric: appropriate mood/affect, intact judgment & insight - Neurologic Neurologic: CNII-XII intact, moves all extremities HEART Score - HEART Score History: Slightly suspicious Age: > 65 Risk factors: > 3 risk factors or hx of atherosclerotic disease Troponin: Troponin T 0.015 ng/mL (0.00-0.029) 03/02/22 14:38 Troponin: < normal limit - Critical Actions Critical Actions: 0-3 pts:0.9-1.7%risk of adverse cardiac event.Candidate for discharge Results - Labs CBC & Chem 7: 03/03/22 05:03 03/03/22 05:03 Labs: Laboratory Last Values WBC 8.2 K/mm3 (4.5-11.0) 03/02/22 14:38 RBC 4.04 M/mm3 (3.65-5.03) 03/02/22 14:38 Hgb 12.6 gm/dl (10.1-14.3) 03/02/22 14:38 Hct 38.4 % (30.3-42.9) 03/02/22 14:38 MCV 95 fl (79-97) 03/02/22 14:38 MCH 31 pg (28-32) 03/02/22 14:38 MCHC 33 % (30-34) 03/02/22 14:38 RDW 18.3 % (13.2-15.2) H 03/02/22 14:38 Plt Count 135 K/mm3 (140-440) L 03/02/22 14:38 Lymph % (Auto) 21.3 % (13.4-35.0) 03/02/22 14:38 [place] % (Auto) 7.7 % (0.0-7.3) H 03/02/22 14:38 Eos % (Auto) 5.2 % (0.0-4.3) H 03/02/22 14:38 Baso % (Auto) 0.4 % (0.0-1.8) 03/02/22 14:38 Lymph # (Auto) 1.8 K/mm3 (1.2-5.4) 03/02/22 14:38 [place] # (Auto) 0.6 K/mm3 (0.0-0.8) 03/02/22 14:38 Eos # (Auto) 0.4 K/mm3 (0.0-0.4) 03/02/22 14:38 Baso # (Auto) 0.0 K/mm3 (0.0-0.1) 03/02/22 14:38 Seg Neutrophils % 65.4 % (40.0-70.0) 03/02/22 14:38 Seg Neutrophils # 5.4 K/mm3 (1.8-7.7) 03/02/22 14:38 PT 13.8 Sec. (12.2-14.9) 03/02/22 14:38 INR 0.96 (0.87-1.13) 03/02/22 14:38 Sodium 139 mmol/L (137-145) 03/02/22 14:38 Potassium 3.1 mmol/L (3.6-5.0) L D 03/02/22 14:38 Chloride 95.9 mmol/L (98-107) L 03/02/22 14:38 Carbon Dioxide 29 mmol/L (22-30) 03/02/22 14:38 Anion Gap 17 mmol/L 03/02/22 14:38 BUN 17 mg/dL (7-17) 03/02/22 14:38 Creatinine 2.3 mg/dL (0.6-1.2) H 03/02/22 14:38 Estimated GFR 26 ml/min 03/02/22 14:38 BUN/Creatinine Ratio 7 % 03/02/22 14:38 Glucose 81 mg/dL (65-100) 03/02/22 14:38 Calcium 9.5 mg/dL (8.4-10.2) 03/02/22 14:38 Magnesium 1.90 mg/dL (1.7-2.3) 03/02/22 14:38 Total Creatine Kinase 34 units/L (30-135) 03/02/22 14:38 CK-MB (CK-2) 1.3 ng/mL (0.0-4.0) 03/02/22 14:38 CK-MB (CK-2) Rel Index 3.8 (0-4) 03/02/22 14:38 Troponin T 0.015 ng/mL (0.00-0.029) 03/02/22 14:38 TSH 0.463 mlU/mL (0.270-4.200) 03/02/22 14:38 Free T4 1.77 ng/dL (0.76-1.46) H 03/02/22 14:38 Short CBC 03/02/22 03/02/22 03/03/22 Range/Units 14:38 19:44 05:03 WBC 8.2 7.3 6.7 (4.5-11.0) K/mm3 Hgb 12.6 12.8 12.4 (10.1-14.3) gm/dl Hct 38.4 39.3 39.4 (30.3-42.9) % Plt Count 135 L 145 151 (140-440) K/mm3 BMP 03/02/22 03/02/22 03/03/22 14:38 19:44 05:03 Sodium 139 138 Potassium 3.1 L D 3.3 L Chloride 95.9 L 95.7 L Carbon Dioxide 29 31 H BUN 17 14 Creatinine 2.3 H 1.4 H 2.5 H D Glucose 81 72 Calcium 9.5 9.1 Cardiac Enzymes 03/02/22 Range/Units 14:38 Total Creatine Kinase 34 (30-135) units/L CK-MB (CK-2) 1.3 (0.0-4.0) ng/mL Troponin T 0.015 (0.00-0.029) ng/mL Liver Function 03/03/22 Range/Units 05:03 Total Bilirubin 0.50 (0.1-1.2) mg/dL AST 10 (5-40) units/L ALT 6 L (7-56) units/L Alkaline Phosphatase 83 (35-129) units/L Albumin 4.2 (3.9-5) g/dL - Imaging and Cardiology EKG: report reviewed (Sinus rhythm no acute ST-T wave changes) Chest x-ray: report reviewed Imaging and Cardiology: Chest CTA No evidence of pulmonary embolism Cardiac enlargement Assessment and Plan Advance Directives: Yes (Full code) VTE prophylaxis?: Chemical Plan of care discussed with patient/family: Yes - Patient Problems (1) Volume overload Current Visit: Yes Status: Acute Plan to address problem: Secondary to inadequate hemodialysis Patient being taken to emergent hemodialysis today Possible discharge tomorrow (2) End-stage renal disease on hemodialysis Current Visit: Yes Status: Chronic Plan to address problem: Continue hemodialysis as per schedule (3) Tachycardia Current Visit: Yes Status: Acute Plan to address problem: PE ruled out Patient on Eliquis for atrial fibrillation (4) Hypertension Current Visit: Yes Status: Chronic Qualifiers: Hypertension type: primary hypertension Qualified Code(s): I10 - Essential (primary) hypertension Plan to address problem: Continue antihypertensives and adjust medications (5) T2DM (type 2 diabetes mellitus) Current Visit: Yes Status: Chronic Qualifiers: Diabetes mellitus alf insulin use: unspecified roasterman insulin use status Plan to address problem: Coverage for now (6) Coronary artery disease Current Visit: Yes Status: Chronic Qualifiers: Coronary Disease-Associated Artery/Lesion type: [place] artery [place] vs. transplanted heart: [place] heart Plan to address problem: Patient had a recent stress test which is negative No further work-up (7) DVT prophylaxis Current Visit: Yes Status: Acute Plan to address problem: On Eliquis and GI prophylaxis (8) Advance care planning Current Visit: Yes Status: Acute Plan to address problem: Disease education conducted, care plan discussed, diagnosis discussed, prognosis is. Patient is full code. Patient acknowledges understanding and agreement with care plan. +30 minutes.
[2022-03-02] MEDS: oxyCODONE /ACETAMINOPHEN 5-325MG TAB PO PRN (19:59)
[2022-03-02] MEDS ORDERED: hydrALAZINE 25 MG TAB PO SCH (20:00)
[2022-03-02] MEDS ORDERED: NON-FORMULARY EACH (Hydralazine Hcl [Hydralazine Hcl] 50 MG Tablet) PO SCH (20:00)
[2022-03-02 20:34] LABS: Hematocrit 39.3 % (30.3-42.9); Hemoglobin 12.8 gm/dl (10.1-14.3); Mean Corpuscular HGB Conc 33 % (30-34); Mean Corpuscular Volume 96 fl (79-97); Platelet Count 145 K/mm3 (140-440); Red Blood Count 4.12 M/mm3 (3.65-5.03); Red Cell Distribution Width 17.7 % (13.2-15.2)
[2022-03-02 20:42] LABS: INR 0.87 (0.87-1.13)
[2022-03-02 20:44] LABS: Partial Thromboplastin Time 42.3 Sec. (24.2-36.6)
[2022-03-02] MEDS ORDERED: NON-FORMULARY EACH (Apixaban 5 MG Tablet) PO SCH (22:00)
[2022-03-02] MEDS ORDERED: HEPARIN 5,000 UNIT/1 ML VIAL SUB-Q SCH (22:00)
[2022-03-02] MEDS: AMIODARONE 200 MG TAB PO SCH (23:07)
[2022-03-02] MEDS: cloNIDine 0.1 MG TAB PO SCH (23:07)
[2022-03-02] MEDS: APIXABAN 5 MG TAB PO SCH (23:07)
[2022-03-02] MEDS: METOPROLOL TARTRATE 50 MG TAB PO SCH (23:07)
[2022-03-02] MEDS: QUEtiapine 100 MG TAB PO SCH (23:08)
[2022-03-02] MEDS: INSULIN LISPRO 100 UNIT/ML SUB-Q SCH (23:54)
[2022-03-03 05:46] LABS: Basophils # (Auto) 0.1 K/mm3 (0.0-0.1); Basophils % (Auto) 0.8 % (0.0-1.8); Eosinophils # (Auto) 0.5 K/mm3 (0.0-0.4); Eosinophils % (Auto) 8.1 % (0.0-4.3); Hematocrit 39.4 % (30.3-42.9); Hemoglobin 12.4 gm/dl (10.1-14.3); Lymphocytes # (Auto) 1.7 K/mm3 (1.2-5.4); Lymphocytes % (Auto) 26.1 % (13.4-35.0); Mean Corpuscular HGB Conc 31 % (30-34); Mean Corpuscular Volume 97 fl (79-97); Monocytes # (Auto) 0.5 K/mm3 (0.0-0.8); Monocytes % (Auto) 7.4 % (0.0-7.3); Platelet Count 151 K/mm3 (140-440); Red Blood Count 4.08 M/mm3 (3.65-5.03); Red Cell Distribution Width 18.1 % (13.2-15.2)
[2022-03-03 06:07] LABS: Albumin 4.2 g/dL (3.9-5); Calcium 9.1 mg/dL (8.4-10.2)
[2022-03-03] MEDS ORDERED: POTASSIUM CHLORIDE ER 20 MEQ TAB PO NR (08:00)
[2022-03-03] MEDS: INSULIN LISPRO 100 UNIT/ML SUB-Q SCH ×4 (08:23→22:17)
[2022-03-03] MEDS: QUEtiapine 100 MG TAB PO SCH ×3 (08:47→22:19)
[2022-03-03] MEDS: APIXABAN 5 MG TAB PO SCH ×3 (08:48→22:20)
[2022-03-03] MEDS: METOPROLOL TARTRATE 50 MG TAB PO SCH (08:48)
[2022-03-03] MEDS: ASPIRIN EC 81 MG TAB PO SCH ×2 (08:49→10:41)
[2022-03-03] MEDS: AMIODARONE 200 MG TAB PO SCH ×3 (08:49→22:19)
--- NOTE | 2022-03-03 10:45 | Electrocardiograph Report ---
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
[2022-03-03] MEDS ORDERED: POTASSIUM CHLORIDE ER 20 MEQ TAB PO ONE (11:00)
[2022-03-03] MEDS ORDERED: METOPROLOL TARTRATE 50 MG TAB PO ONE (11:00)
--- NOTE | 2022-03-03 11:19 | Progress Note ---
Assessment and Plan Assessment and plan: Advance Directives: Yes (Full code) VTE prophylaxis?: Chemical Plan of care discussed with patient/family: Yes Assessment and plan --Volume overload Current Visit: Yes Status: Acute Secondary to inadequate hemodialysis Patient being taken to emergent hemodialysis today Possible discharge tomorrow --End-stage renal disease on hemodialysis Current Visit: Yes Status: Chronic Continue hemodialysis as per schedule -- Tachycardia Current Visit: Yes Status: Acute CTA chest negative for PE Patient on Eliquis for atrial fibrillation --Hypertension Current Visit: Yes Status: Chronic Continue antihypertensives and adjust medications --T2DM (type 2 diabetes mellitus) Current Visit: Yes Status: Chronic Accu-Cheks sliding scale coverage ADA diet --Coronary artery disease Current Visit: Yes Status: Chronic Patient had a recent stress test which is negative No further work-up -- DVT prophylaxis Current Visit: Yes Status: Acute On Eliquis and GI prophylaxis --Full CODE STATUS; --Advance care planning Current Visit: Yes Status: Acute Disease education conducted, care plan discussed, diagnosis discussed, prognosis is. Patient acknowledges understanding and agreement with care plan. +30 minutes. We will closely monitor the patient and adjust management as needed Plan of care reviewed with the patient and nurse Nephrology evaluation and recommendations noted and appreciated History Interval history: I have seen and examined the patient at the bedside Patient's chart and medications reviewed Patient feels slightly better still has some shortness of breath and generalized weakness Vital signs noted Hospitalist Physical - Constitutional Vitals: Temp Pulse Resp BP Pulse Ox 97.5 F L 71 16 112/69 97 03/03/22 04:49 03/03/22 04:49 03/03/22 04:49 03/03/22 04:49 03/03/22 04:49 General appearance: Present: no acute distress, well-nourished - EENT Eyes: Present: PERRL, EOM intact - Neck Neck: Present: supple, normal ROM - Respiratory Respiratory effort: normal Respiratory: bilateral: diminished, negative: rales, rhonchi, wheezing - Cardiovascular Rhythm: regular Heart Sounds: Present: S1 & S2 - Extremities Extremities: no ischemia, No edema - Abdominal General gastrointestinal: soft, non-tender, non-distended, normal bowel sounds - Integumentary Integumentary: Present: clear, warm - Psychiatric Psychiatric: appropriate mood/affect, cooperative - Neurologic Neurologic: CNII-XII intact, moves all extremities HEART Score - HEART Score Age: > 65 Risk factors: > 3 risk factors or hx of atherosclerotic disease Troponin: Troponin T 0.015 ng/mL (0.00-0.029) 03/02/22 14:38 Troponin: < normal limit - Critical Actions Critical Actions: 0-3 pts:0.9-1.7%risk of adverse cardiac event.Candidate for discharge Results - Labs CBC & Chem 7: 03/03/22 05:03 03/03/22 05:03 Labs: Laboratory Last Values WBC 6.7 K/mm3 (4.5-11.0) 03/03/22 05:03 RBC 4.08 M/mm3 (3.65-5.03) 03/03/22 05:03 Hgb 12.4 gm/dl (10.1-14.3) 03/03/22 05:03 Hct 39.4 % (30.3-42.9) 03/03/22 05:03 MCV 97 fl (79-97) 03/03/22 05:03 MCH 30 pg (28-32) 03/03/22 05:03 MCHC 31 % (30-34) 03/03/22 05:03 RDW 18.1 % (13.2-15.2) H 03/03/22 05:03 Plt Count 151 K/mm3 (140-440) 03/03/22 05:03 Lymph % (Auto) 26.1 % (13.4-35.0) 03/03/22 05:03 [place] % (Auto) 7.4 % (0.0-7.3) H 03/03/22 05:03 Eos % (Auto) 8.1 % (0.0-4.3) H 03/03/22 05:03 Baso % (Auto) 0.8 % (0.0-1.8) 03/03/22 05:03 Lymph # (Auto) 1.7 K/mm3 (1.2-5.4) 03/03/22 05:03 [place] # (Auto) 0.5 K/mm3 (0.0-0.8) 03/03/22 05:03 Eos # (Auto) 0.5 K/mm3 (0.0-0.4) H 03/03/22 05:03 Baso # (Auto) 0.1 K/mm3 (0.0-0.1) 03/03/22 05:03 Seg Neutrophils % 57.6 % (40.0-70.0) 03/03/22 05:03 Seg Neutrophils # 3.8 K/mm3 (1.8-7.7) 03/03/22 05:03 PT 12.8 Sec. (12.2-14.9) 03/02/22 19:44 INR 0.87 (0.87-1.13) 03/02/22 19:44 APTT 42.3 Sec. (24.2-36.6) H 03/02/22 19:44 Sodium 138 mmol/L (137-145) 03/03/22 05:03 Potassium 3.3 mmol/L (3.6-5.0) L 03/03/22 05:03 Chloride 95.7 mmol/L (98-107) L 03/03/22 05:03 Carbon Dioxide 31 mmol/L (22-30) H 03/03/22 05:03 Anion Gap 15 mmol/L 03/03/22 05:03 BUN 14 mg/dL (7-17) 03/03/22 05:03 Creatinine 2.5 mg/dL (0.6-1.2) H D 03/03/22 05:03 Estimated GFR 23 ml/min 03/03/22 05:03 BUN/Creatinine Ratio 6 % 03/03/22 05:03 Glucose 72 mg/dL (65-100) 03/03/22 05:03 POC Glucose 85 mg/dL (70-105) 03/03/22 07:12 Calcium 9.1 mg/dL (8.4-10.2) 03/03/22 05:03 Magnesium 1.90 mg/dL (1.7-2.3) 03/02/22 14:38 Total Bilirubin 0.50 mg/dL (0.1-1.2) 03/03/22 05:03 AST 10 units/L (5-40) 03/03/22 05:03 ALT 6 units/L (7-56) L 03/03/22 05:03 Alkaline Phosphatase 83 units/L (35-129) 03/03/22 05:03 Total Creatine Kinase 34 units/L (30-135) 03/02/22 14:38 CK-MB (CK-2) 1.3 ng/mL (0.0-4.0) 03/02/22 14:38 CK-MB (CK-2) Rel Index 3.8 (0-4) 03/02/22 14:38 Troponin T 0.015 ng/mL (0.00-0.029) 03/02/22 14:38 Total Protein 6.1 g/dL (6.3-8.2) L 03/03/22 05:03 Albumin 4.2 g/dL (3.9-5) 03/03/22 05:03 Albumin/Globulin Ratio 2.2 % 03/03/22 05:03 TSH 0.463 mlU/mL (0.270-4.200) 03/02/22 14:38 Free T4 1.77 ng/dL (0.76-1.46) H 03/02/22 14:38 Nasal Screen MRSA (PCR) Negative (Negative) 03/03/22 00:30 [place]/IV: Voiding Method Toilet Active Medications - Current Medications Current Medications: Generic Name Dose Route Start Last Admin Trade Name Freq PRN Reason Stop Dose Admin Acetaminophen 650 mg 03/02/22 19:17 Acetaminophen 325 Mg Tab PO Q4H PRN Pain MILD(1-3)/Fever >100.5/SILVA Albuterol 2 puff 03/02/22 19:16 Albuterol 8.5 Gm Mdi Inhalation IH QID PRN Shortness Of Breath Amiodarone HCl 200 mg 03/02/22 22:00 03/03/22 10:41 Amiodarone 200 Mg Tab PO Not Given BID CHRISTEL Apixaban 5 mg 03/02/22 22:00 03/03/22 10:45 Apixaban 5 Mg Tab PO Not Given Q12HR [facility] Protocol Aspirin 81 mg 03/02/22 20:00 03/03/22 10:41 Aspirin Ec 81 Mg Tab PO Not Given QDAY CHRISTEL Clonidine HCl 0.1 mg 03/02/22 22:00 03/02/22 23:07 Clonidine 0.1 Mg Tab PO 0.1 mg BID CHRISTEL Administration Heparin Sodium (Porcine) 2,000 unit 03/02/22 14:52 Heparin 10,000 Units/10 Ml Vial IV KARLENE PRN hemodialysis Sodium Chloride 100 mls @ 999 mls/hr 03/02/22 14:52 Nacl 0.9% IV KARLENE PRN Hypotension Insulin Human Lispro 0 unit 03/02/22 22:05 03/03/22 08:23 Insulin Lispro 100 Unit/Ml SUB-Q Not Given ACHS [facility] Protocol Metoclopramide HCl 10 mg 03/02/22 19:17 Metoclopramide 10 Mg/2 Ml Inj IV Q6H PRN Nausea And Vomiting Metoprolol Tartrate 100 mg 03/03/22 22:00 Metoprolol Tartrate 100 Mg Tab PO BID [facility] Morphine Sulfate 2 mg 03/02/22 19:17 Morphine 2 Mg/1 Ml Inj IV Q4H PRN Pain, Moderate (4-6) Ondansetron HCl 4 mg 03/02/22 19:17 Ondansetron 4 Mg/2 Ml Inj IV Q8H PRN Nausea And Vomiting Oxycodone/Acetaminophen 1 tab 03/02/22 19:17 03/02/22 19:59 Oxycodone /Acetaminophen 5-325mg Tab PO 1 tab Q6H PRN Administration Pain, Moderate (4-6) Quetiapine Fumarate 100 mg 03/02/22 22:00 03/03/22 10:41 Quetiapine 100 Mg Tab PO Not Given BID CHRISTEL Sodium Chloride 10 ml 03/02/22 22:00 03/03/22 10:55 Sodium Chloride 0.9% 10 Ml Flush Syringe IV 10 ml BID CHRISTEL Administration Sodium Chloride 10 ml 03/02/22 19:17 Sodium Chloride 0.9% 10 Ml Flush Syringe IV PRN PRN LINE FLUSH
[2022-03-03] MEDS: cloNIDine 0.1 MG TAB PO SCH ×2 (14:06→22:16)
[2022-03-03] MEDS: oxyCODONE /ACETAMINOPHEN 5-325MG TAB PO PRN ×2 (14:45→22:23)
[2022-03-03] MEDS: MORPHINE 2 MG/1 ML INJ IV PRN (18:46)
--- NOTE | 2022-03-03 20:20 | Progress Note ---
Assessment and Plan 1. ESRD: Patient is on maintenance hemodialysis, TTS schedule. Last outpatient HD 03/02. Hemodialysis: . 2. FEN: UF with HD as tolerated. Monitor lytes and volume status. 3. Chest pain // H/o CAD s/p PCI: Troponin not elevated. CTA negative for PE. Monitor. 4. Paroxysmal A.fib with RVR: Amiodarone, Metoprolol and Eliquis. Monitor. 5. Chronic HFpEF: Volume control thru HD. Fluid restriction, monitor I/O. 6. H/o COPD: Not in exacerbation. Nebs and O2 as needed. 7. Hypertension: Volume control with HD. Continue home BP meds. Monitor BP. Subjective: Patient was not examined today. However the examination findings from other providers noted. The current and previous medical records are reviewed in d etail as are laboratory and imaging data reviewed when appropriate. Medications being given are also reviewed. In addition the case has been discussed with the attending hospitalist and the nurse when needed. New renal recommendations as above. Subjective Date of service: 03/03/22 Objective - Vital Signs Vital signs: Vital Signs - 12hr 03/03/22 03/03/22 03/03/22 12:52 16:16 19:16 Temperature 97.9 F Pulse Rate 71 Respiratory 18 17 Rate Blood Pressure 104/66 O2 Sat by Pulse 97 96 Oximetry - Lab 03/03/22 05:03 03/03/22 05:03 Most recent lab results Calcium 9.1 mg/dL (8.4-10.2) 03/03/22 05:03 Magnesium 1.90 mg/dL (1.7-2.3) 03/02/22 14:38 Medications & Allergies - Medications Allergies/Adverse Reactions: Allergies apple Adverse Reaction (Verified 02/27/22 09:44) Hives yellow and green apples. can eat red. aspirin Adverse Reaction (Verified 02/27/22 09:44) Unknown shell fish Allergy (Uncoded 02/27/22 09:44) Swelling allergic to seafood except blue crab Home Medications: Home Medications Medication Instructions Recorded Confirmed Last Taken Type Quetiapine Fumarate [Seroquel] 100 mg PO BID 08/01/17 03/02/22 03/01/22 22:00 History Albuterol Mdi (or & Nicu Only) 2 puff IH QID PRN #1 inha 12/22/17 03/03/22 03/02/22 10:00 Rx [ProAir HFA Inhaler] Metoprolol [Lopressor TAB] 50 mg PO BID #60 tablet 05/29/20 03/02/22 03/01/22 22:00 Rx Amiodarone [Cordarone 200 MG TAB] 200 mg PO BID #60 tablet 01/22/22 03/02/22 03/02/22 10:00 Rx Aspirin EC [Halfprin EC] 81 mg PO QDAY #30 tablet 01/22/22 03/03/22 02/05/22 09:00 Rx Hydralazine HCl 50 mg PO TID 02/06/22 03/02/22 03/01/22 22:00 History cloNIDine [Catapres] 0.1 mg PO BID 02/06/22 03/03/22 03/02/22 10:00 History Apixaban [Eliquis] 5 mg PO BID #60 tab 02/28/22 03/02/22 03/02/22 10:00 Rx Gabapentin 1 mg PO BID 03/02/22 03/03/22 Unknown History Losartan [Cozaar] 50 mg PO QDAY 03/02/22 03/03/22 03/01/22 10:00 History Nitroglycerin [Nitro-Bid] 0.1 mg TRANSDERMA Q6HR PRN 03/02/22 03/03/22 Unknown H istory Pantoprazole [Protonix] 40 mg PO QDAY 03/02/22 03/03/22 03/02/22 10:00 History Sennosides/Docusate Sodium [Senna 8.6 mg PO DAILY 03/02/22 03/03/22 03/01/22 10:00 History Plus 8.6-50 mg Tablet] carvediloL [Coreg] 25 mg PO BID 03/02/22 03/03/22 Unknown History dilTIAZem 240 mg PO DAILY 03/02/22 03/03/22 Unknown History methIMAzole [Methimazole] 10 mg PO TID 03/02/22 03/03/22 03/02/22 10:00 History methocarbamoL [Methocarbamol] 1 mg PO BID 03/02/22 03/03/22 Unknown History Active Medications: Generic Name Dose Route Start Last Admin Trade Name Freq PRN Reason Stop Dose Admin Acetaminophen 650 mg 03/02/22 19:17 Acetaminophen 325 Mg Tab PO Q4H PRN Pain MILD(1-3)/Fever >100.5/SILVA Albuterol 2 puff 03/02/22 19:16 Albuterol 8.5 Gm Mdi Inhalation IH QID PRN Shortness Of Breath Amiodarone HCl 200 mg 03/02/22 22:00 03/03/22 10:41 Amiodarone 200 Mg Tab PO Not Given BID [facility] TO [facility] Apixaban 5 mg 03/02/22 22:00 03/03/22 10:45 Apixaban 5 Mg Tab PO Not Given Q12HR [facility] Protocol Aspirin 81 mg 03/02/22 20:00 03/03/22 10:41 Aspirin Ec 81 Mg Tab PO Not Given QDAY [facility] Clonidine HCl 0.1 mg 03/02/22 22:00 03/03/22 14:06 Clonidine 0.1 Mg Tab PO 0.1 mg BID [facility] Administration Heparin Sodium (Porcine) 2,000 unit 03/02/22 14:52 Heparin 10,000 Units/10 Ml Vial IV KARLENE PRN hemodialysis Sodium Chloride 100 mls @ 999 mls/hr 03/02/22 14:52 Nacl 0.9% IV KARLENE PRN Hypotension Insulin Human Lispro 0 unit 03/02/22 22:05 03/03/22 17:00 Insulin Lispro 100 Unit/Ml SUB-Q Not Given ACHS [facility] Protocol Metoclopramide HCl 10 mg 03/02/22 19:17 Metoclopramide 10 Mg/2 Ml Inj IV Q6H PRN Nausea And Vomiting Metoprolol Tartrate 100 mg 03/03/22 22:00 Metoprolol Tartrate 100 Mg Tab PO BID [facility] Morphine Sulfate 2 mg 03/02/22 19:17 03/03/22 18:46 Morphine 2 Mg/1 Ml Inj IV 2 mg Q4H PRN Administration Pain, Moderate (4-6) Ondansetron HCl 4 mg 03/02/22 19:17 Ondansetron 4 Mg/2 Ml Inj IV Q8H PRN Nausea And Vomiting Oxycodone/Acetaminophen 1 tab 03/02/22 19:17 03/03/22 14:45 Oxycodone /Acetaminophen 5-325mg Tab PO 1 tab Q6H PRN Administration Pain, Moderate (4-6) Quetiapine Fumarate 100 mg 03/02/22 22:00 03/03/22 10:41 Quetiapine 100 Mg Tab PO Not Given BID [facility] Sodium Chloride 10 ml 03/02/22 22:00 03/03/22 10:55 Sodium Chloride 0.9% 10 Ml Flush Syringe IV 10 ml BID [facility] Administration Sodium Chloride 10 ml 03/02/22 19:17 Sodium Chloride 0.9% 10 Ml Flush Syringe IV PRN PRN LINE FLUSH
[2022-03-03] MEDS ORDERED: ZOLPIDEM 5 MG TAB PO PRN (22:00)
[2022-03-03] MEDS: METOPROLOL TARTRATE 100 MG TAB PO SCH (22:17)
[2022-03-04 04:48] LABS: Hematocrit 37.7 % (30.3-42.9); Hemoglobin 11.8 gm/dl (10.1-14.3); Mean Corpuscular HGB Conc 31 % (30-34); Mean Corpuscular Volume 97 fl (79-97); Platelet Count 146 K/mm3 (140-440); Red Blood Count 3.88 M/mm3 (3.65-5.03); Red Cell Distribution Width 17.9 % (13.2-15.2)
--- NOTE | 2022-03-04 08:03 | Progress Note ---
Assessment and Plan Assessment and plan: Assessment and plan: Advance Directives: Yes (Full code) VTE prophylaxis?: Chemical Plan of care discussed with patient/family: Yes Assessment and plan --Volume overload Current Visit: Yes Status: Acute Secondary to inadequate hemodialysis Patient being taken to emergent hemodialysis today Possible discharge tomorrow --End-stage renal disease on hemodialysis Current Visit: Yes Status: Chronic Continue hemodialysis as per schedule -- Tachycardia Current Visit: Yes Status: Acute CTA chest negative for PE Patient on Eliquis for atrial fibrillation -History of hyperthyroidism; Continue methimazole Patient will follow private caddy packer upon discharge --Hypertension Current Visit: Yes Status: Chronic Well-controlled ,continue antihypertensives and adjust medications --T2DM (type 2 diabetes mellitus) Current Visit: Yes Status: Chronic HbA1c 6.3 , blood sugars in the lower range Patient is not requiring any insulin , Accu-Cheks sliding scale coverage ADA diet --Coronary artery disease Current Visit: Yes Status: Chronic Patient had a recent stress test which is negative No further work-up -- DVT prophylaxis Current Visit: Yes Status: Acute On Eliquis and GI prophylaxis --Full CODE STATUS; --Advance care planning Current Visit: Yes Status: Acute Disease education conducted, care plan discussed, diagnosis discussed, prognosis is. Patient acknowledges understanding and agreement with care plan. +30 minutes. We will closely monitor the patient and adjust management as needed Plan of care reviewed with the patient and nurse Nephrology evaluation and recommendations noted and appreciated Hospitalist Physical - Constitutional Vitals: Temp Pulse Resp BP Pulse Ox 97.8 F 70 17 123/70 98 03/03/22 21:24 03/03/22 22:17 03/04/22 00:00 03/03/22 22:17 03/04/22 00:00 General appearance: Present: no acute distress, well-nourished HEART Score - HEART Score Age: > 65 Risk factors: > 3 risk factors or hx of atherosclerotic disease Troponin: Troponin T 0.015 ng/mL (0.00-0.029) 03/02/22 14:38 Troponin: < normal limit - Critical Actions Critical Actions: 0-3 pts:0.9-1.7%risk of adverse cardiac event.Candidate for discharge Results - Labs CBC & Chem 7: 03/04/22 04:06 03/03/22 05:03 Labs: Laboratory Last Values WBC 6.7 K/mm3 (4.5-11.0) 03/04/22 04:06 RBC 3.88 M/mm3 (3.65-5.03) 03/04/22 04:06 Hgb 11.8 gm/dl (10.1-14.3) 03/04/22 04:06 Hct 37.7 % (30.3-42.9) 03/04/22 04:06 MCV 97 fl (79-97) 03/04/22 04:06 MCH 30 pg (28-32) 03/04/22 04:06 MCHC 31 % (30-34) 03/04/22 04:06 RDW 17.9 % (13.2-15.2) H 03/04/22 04:06 Plt Count 146 K/mm3 (140-440) 03/04/22 04:06 Lymph % (Auto) 26.1 % (13.4-35.0) 03/03/22 05:03 Mcintosh % (Auto) 7.4 % (0.0-7.3) H 03/03/22 05:03 Eos % (Auto) 8.1 % (0.0-4.3) H 03/03/22 05:03 Baso % (Auto) 0.8 % (0.0-1.8) 03/03/22 05:03 Lymph # (Auto) 1.7 K/mm3 (1.2-5.4) 03/03/22 05:03 Mcintosh # (Auto) 0.5 K/mm3 (0.0-0.8) 03/03/22 05:03 Eos # (Auto) 0.5 K/mm3 (0.0-0.4) H 03/03/22 05:03 Baso # (Auto) 0.1 K/mm3 (0.0-0.1) 03/03/22 05:03 Seg Neutrophils % 57.6 % (40.0-70.0) 03/03/22 05:03 Seg Neutrophils # 3.8 K/mm3 (1.8-7.7) 03/03/22 05:03 PT 12.8 Sec. (12.2-14.9) 03/02/22 19:44 INR 0.87 (0.87-1.13) 03/02/22 19:44 APTT 42.3 Sec. (24.2-36.6) H 03/02/22 19:44 Sodium 138 mmol/L (137-145) 03/03/22 05:03 Potassium 3.3 mmol/L (3.6-5.0) L 03/03/22 05:03 Chloride 95.7 mmol/L (98-107) L 03/03/22 05:03 Carbon Dioxide 31 mmol/L (22-30) H 03/03/22 05:03 Anion Gap 15 mmol/L 03/03/22 05:03 BUN 14 mg/dL (7-17) 03/03/22 05:03 Creatinine 2.5 mg/dL (0.6-1.2) H D 03/03/22 05:03 Estimated GFR 23 ml/min 03/03/22 05:03 BUN/Creatinine Ratio 6 % 03/03/22 05:03 Glucose 72 mg/dL (65-100) 03/03/22 05:03 POC Glucose 95 mg/dL (70-105) 03/03/22 21:22 Calcium 9.1 mg/dL (8.4-10.2) 03/03/22 05:03 Magnesium 1.90 mg/dL (1.7-2.3) 03/02/22 14:38 Total Bilirubin 0.50 mg/dL (0.1-1.2) 03/03/22 05:03 AST 10 units/L (5-40) 03/03/22 05:03 ALT 6 units/L (7-56) L 03/03/22 05:03 Alkaline Phosphatase 83 units/L (35-129) 03/03/22 05:03 Total Creatine Kinase 34 units/L (30-135) 03/02/22 14:38 CK-MB (CK-2) 1.3 ng/mL (0.0-4.0) 03/02/22 14:38 CK-MB (CK-2) Rel Index 3.8 (0-4) 03/02/22 14:38 Troponin T 0.015 ng/mL (0.00-0.029) 03/02/22 14:38 Total Protein 6.1 g/dL (6.3-8.2) L 03/03/22 05:03 Albumin 4.2 g/dL (3.9-5) 03/03/22 05:03 Albumin/Globulin Ratio 2.2 % 03/03/22 05:03 TSH 0.463 mlU/mL (0.270-4.200) 03/02/22 14:38 Free T4 1.77 ng/dL (0.76-1.46) H 03/02/22 14:38 Nasal Screen MRSA (PCR) Negative (Negative) 03/03/22 00:30 [place]/IV: Voiding Method Toilet Active Medications - Current Medications Current Medications: Generic Name Dose Route Start Last Admin Trade Name Freq PRN Reason Stop Dose Admin Acetaminophen 650 mg 03/02/22 19:17 Acetaminophen 325 Mg Tab PO Q4H PRN Pain MILD(1-3)/Fever >100.5/SILVA Albuterol 2 puff 03/02/22 19:16 Albuterol 8.5 Gm Mdi Inhalation IH QID PRN Shortness Of Breath Amiodarone HCl 200 mg 03/02/22 22:00 03/03/22 22:19 Amiodarone 200 Mg Tab PO 200 mg BID [facility]EL Administration Apixaban 5 mg 03/02/22 22:00 03/03/22 22:20 Apixaban 5 Mg Tab PO 5 mg Q12HR [facility]EL Administration Protocol Aspirin 81 mg 03/02/22 20:00 03/03/22 10:41 Aspirin Ec 81 Mg Tab PO Not Given QDAY [facility] Clonidine HCl 0.1 mg 03/02/22 22:00 03/03/22 22:16 Clonidine 0.1 Mg Tab PO Not Given BID [facility] Heparin Sodium (Porcine) 2,000 unit 03/02/22 14:52 Heparin 10,000 Units/10 Ml Vial IV KARLENE PRN hemodialysis Sodium Chloride 100 mls @ 999 mls/hr 03/02/22 14:52 Nacl 0.9% IV KARLENE PRN Hypotension Insulin Human Lispro 0 unit 03/02/22 22:05 03/03/22 22:17 Insulin Lispro 100 Unit/Ml SUB-Q Not Given ACHS [facility] Protocol Metoclopramide HCl 10 mg 03/02/22 19:17 Metoclopramide 10 Mg/2 Ml Inj IV Q6H PRN Nausea And Vomiting Metoprolol Tartrate 100 mg 03/03/22 22:00 03/03/22 22:17 Metoprolol Tartrate 100 Mg Tab PO Not Given BID [facility] Morphine Sulfate 2 mg 04/23/22 19:17 03/03/22 18:46 Morphine 2 Mg/1 Ml Inj IV 2 mg Q4H PRN Administration Pain, Moderate (4-6) Ondansetron HCl 4 mg 03/02/22 19:17 Ondansetron 4 Mg/2 Ml Inj IV Q8H PRN Nausea And Vomiting Oxycodone/Acetaminophen 1 tab 03/02/22 19:17 03/03/22 22:23 Oxycodone /Acetaminophen 5-325mg Tab PO 1 tab Q6H PRN Administration Pain, Moderate (4-6) Quetiapine Fumarate 100 mg 03/02/22 22:00 03/03/22 22:19 Quetiapine 100 Mg Tab PO 100 mg BID [facility] Administration Sodium Chloride 10 ml 03/02/22 22:00 03/03/22 22:20 Sodium Chloride 0.9% 10 Ml Flush Syringe IV 10 ml BID [facility]EL Administration Sodium Chloride 10 ml 03/02/22 19:17 Sodium Chloride 0.9% 10 Ml Flush Syringe IV PRN PRN LINE FLUSH Zolpidem Tartrate 5 mg 03/03/22 22:00 Zolpidem 5 Mg Tab PO QHS PRN Sleep Nutrition/Malnutrition Assess - Dietary Evaluation Nutrition/Malnutrition Findings: Nutrition Notes Start: 03/03/22 12:11 Freq: Status: Active Protocol: Document 03/03/22 12:11 SHANDA (Rec: 03/03/22 12:31 SHANDA [id number]) Nutrition Notes Need for Assessment generated from: building services technician,MST Initial or Follow up Assessment Current Diagnosis CKD (stage V CKD),COPD, Coronary Artery Disease, Diabetes,Hypertension,Heart Failure,Stroke,Hyperlipidemia Other Pertinent Diagnosis ESRD+HD, s/p MS w/Stent, CKD w /Stent, Atrial Fibrilation w/ Pacemaker, ... Current Diet Renal Diet (since D 03/02). Labs/Tests 03/03: K 3.3, Cl 95.7, CO2 31, Crea 2.5. Pertinent Medications 03/03: Nutritionally unrermarkable. Height 5 ft 4 in Weight 68.038 kg [place] Body Weight (kg) 54.54 BMI 25.7 Intake Prior to Admission Poor Weight change and time frame Pt states having, unintentionally, loss between 2 and 13 lb recently. Weight Status Overweight Subjective/Other Information RD consult for risk of malnutrition assessment. No reports available on Pt's PO intake of meals at the time , will assess at F/U. Pt is on Room Air, O2 saturation @ 100%, according to Physical Assessment History notes. Pt shows no signs of concern for risk of malnutrition at the time, according to Physical Assessment History notes. Percent of energy/protein needs met: Prescribed Renal Diet provides for energy/protein needs (2, 072 Kcal/77 g) during LOS. Burn Absent Trauma Absent GI Symptoms Nausea Food Allergy Yes Skin Integrity/Comment Assessment WNL. Minimum of two criteria No Interpretation of Weight Loss (non- 10% in 6 months severe) Protein-Calorie Malnutrition N\A #1 Nutrition Diagnosis No nutrition diagnosis at this time Comments: Will assess Pt's PO intake of meals at F/U. Is patient on ventilator? No Is Patient Ambulatory and/or Out of Bed Yes REE-([place]-St. Jeor-ambulatory/OOB) [ [id number] [id number]] Calculation [facility] Additional Notes Protein: >1.2 g/Kg ABW; >82 g/ day. Fluids: 1 ml/Kcal, or as per MD. Nutrition Intervention Change Diet Order: Continue renal Diet. Follow-Up By: 03/07/22 Additional Comments Continue monitoring food tolerance, %PO intake of meals , and BM.
[2022-03-04] MEDS: INSULIN LISPRO 100 UNIT/ML SUB-Q SCH ×2 (08:31→14:15)
[2022-03-04] MEDS: MORPHINE 2 MG/1 ML INJ IV PRN (09:32)
[2022-03-04] MEDS: APIXABAN 5 MG TAB PO SCH (09:33)
[2022-03-04] MEDS: AMIODARONE 200 MG TAB PO SCH (09:33)
[2022-03-04] MEDS: ASPIRIN EC 81 MG TAB PO SCH (09:33)
[2022-03-04] MEDS: QUEtiapine 100 MG TAB PO SCH (10:09)
[2022-03-04 13:48] LABS: Calcium 9.3 mg/dL (8.4-10.2)
[2022-03-04] MEDS: cloNIDine 0.1 MG TAB PO SCH (14:14)
[2022-03-04] MEDS: METOPROLOL TARTRATE 100 MG TAB PO SCH (14:14)
[2022-03-04] MEDS ORDERED: SODIUM POLYSTYRENE 15 GM/60 ML ORAL LIQD PO NR (14:55)
--- NOTE | 2022-03-04 14:56 | Progress Note ---
Assessment and Plan 1. ESRD: Patient is on maintenance hemodialysis, TTS schedule. Last outpatient HD 03/02. Hemodialysis: . 2. FEN: UF with HD as tolerated. Monitor lytes and volume status. 3. Chest pain // H/o CAD s/p PCI: Troponin not elevated. CTA negative for PE. Monitor. 4. Paroxysmal A.fib with RVR: Amiodarone, Metoprolol and Eliquis. Monitor. 5. Chronic HFpEF: Volume control thru HD. Fluid restriction, monitor I/O. 6. H/o COPD: Not in exacerbation. Nebs and O2 as needed. 7. Hypertension: Volume control with HD. Continue home BP meds. Monitor BP. Please remove the R femoral central line prior to discharge. Subjective: Patient was seen and examined at the bedside. Patient is doing better. Examination: General appearance: well-developed, appears stated age, no distress HEENT: atraumatic, ANA Neck: trachea midline Respiratory: ctab Heart: S1S2, no murmur Abdomen: soft, bowel sounds heard, NT Integumentary: no obvious rash Neurologic: AO, able to move extremities Ext: no edema Hemodialysis access: R IJ tunnel catheter, R arm AVG Subjective Date of service: 03/04/22 Objective - Vital Signs Vital signs: Vital Signs - 12hr 03/04/22 03/04/22 03/04/22 04:28 08:44 08:57 Temperature 97.5 F L 98.7 F Pulse Rate 70 70 Respiratory 16 20 20 Rate Blood Pressure 142/79 141/72 O2 Sat by Pulse 98 97 100 Oximetry 03/04/22 03/04/22 03/04/22 09:32 12:21 14:14 Temperature 97.2 F L Pulse Rate 70 Respiratory 20 18 Rate Blood Pressure 154/76 154/76 O2 Sat by Pulse 98 Oximetry - Lab 03/04/22 04:06 03/04/22 13:06 Most recent lab results Calcium 9.3 mg/dL (8.4-10.2) 03/04/22 13:06 Magnesium 1.90 mg/dL (1.7-2.3) 03/02/22 14:38 Medications & Allergies - Medications Allergies/Adverse Reactions: Allergies apple Adverse Reaction (Verified 02/27/22 09:44) Hives yellow and green apples. can eat red. aspirin Adverse Reaction (Verified 02/27/22 09:44) Unknown shell fish Allergy (Uncoded 02/27/22 09:44) Swelling allergic to seafood except blue crab Home Medications: Home Medications Medication Instructions Recorded Confirmed Last Taken Type Quetiapine Fumarate [Seroquel] 100 mg PO BID 08/01/17 03/02/22 03/01/22 22:00 History Albuterol Mdi (or & Nicu Only) 2 puff IH QID PRN #1 inha 12/22/17 03/03/22 03/02/22 10:00 Rx [ProAir HFA Inhaler] Amiodarone [Cordarone 200 MG TAB] 200 mg PO BID #60 tablet 01/22/22 03/02/22 03/02/22 10:00 Rx Aspirin EC [Halfprin EC] 81 mg PO QDAY #30 tablet 01/22/22 03/03/22 02/05/22 09:00 Rx Hydralazine HCl 50 mg PO TID 02/06/22 03/02/22 03/01/22 22:00 History cloNIDine [Catapres] 0.1 mg PO BID 02/06/22 03/03/22 03/02/22 10:00 History Apixaban [Eliquis] 5 mg PO BID #60 tab 02/28/22 03/02/22 03/02/22 10:00 Rx Gabapentin 1 mg PO BID 03/02/22 03/03/22 Unknown History Losartan [Cozaar] 50 mg PO QDAY 03/02/22 03/03/22 03/01/22 10:00 History Nitroglycerin [Nitro-Bid] 0.1 mg TRANSDERMA Q6HR PRN 03/02/22 03/03/22 Unknown History Pantoprazole [Protonix TAB] 40 mg PO QDAY 03/02/22 03/03/22 03/02/22 10:00 History Sennosides/Docusate Sodium [Senna 8.6 mg PO DAILY 03/02/22 03/03/22 03/01/22 10:00 History Plus 8.6-50 mg Tablet] methIMAzole [Methimazole] 10 mg PO TID 03/02/22 03/03/22 03/02/22 10:00 History methocarbamoL [Methocarbamol] 1 mg PO BID 03/02/22 03/03/22 Unknown History Metoprolol [Lopressor TAB] 100 mg PO BID #60 tablet 03/04/22 Unknown Rx Zolpidem [Ambien] 5 mg PO QHS PRN #7 tablet 03/04/22 Unknown Rx Active Medications: Generic Name Dose Route Start Last Admin Trade Name Freq PRN Reason Stop Dose Admin Acetaminophen 650 mg 03/02/22 19:17 Acetaminophen 325 Mg Tab PO Q4H PRN Pain MILD(1-3)/Fever >100.5/SILVA Albuterol 2 puff 03/02/22 19:16 Albuterol 8.5 Gm Mdi Inhalation IH QID PRN Shortness Of Breath Amiodarone HCl 200 mg 03/02/22 22:00 03/04/22 09:33 Amiodarone 200 Mg Tab PO 200 mg BID [facility] Administration Apixaban 5 mg 03/02/22 22:00 03/04/22 09:33 Apixaban 5 Mg Tab PO 5 mg Q12HR [facility] Administration Protocol Aspirin 81 mg 03/02/22 20:00 03/04/22 09:33 Aspirin Ec 81 Mg Tab PO 81 mg QDAY [facility] Administration Clonidine HCl 0.1 mg 03/02/22 22:00 03/04/22 14:14 Clonidine 0.1 Mg Tab PO 0.1 mg BID [facility] Administration Heparin Sodium (Porcine) 2,000 unit 03/02/22 14:52 Heparin 10,000 Units/10 Ml Vial IV KARLENE PRN hemodialysis Sodium Chloride 100 mls @ 999 mls/hr 03/02/22 14:52 Nacl 0.9% IV KARLENE PRN Hypotension Insulin Human Lispro 0 unit 03/02/22 22:05 03/04/22 14:15 Insulin Lispro 100 Unit/Ml SUB-Q Not Given ACHS [facility] Protocol Metoclopramide HCl 10 mg 03/02/22 19:17 Metoclopramide 10 Mg/2 Ml Inj IV Q6H PRN Nausea And Vomiting Metoprolol Tartrate 100 mg 03/03/22 22:00 03/04/22 14:14 Metoprolol Tartrate 100 Mg Tab PO 100 mg BID [facility] Administration Morphine Sulfate 2 mg 03/02/22 19:17 03/04/22 09:32 Morphine 2 Mg/1 Ml Inj IV 2 mg Q4H PRN Administration Pain, Moderate (4-6) Ondansetron HCl 4 mg 03/02/22 19:17 Ondansetron 4 Mg/2 Ml Inj IV Q8H PRN Nausea And Vomiting Oxycodone/Acetaminophen 1 tab 03/02/22 19:17 03/03/22 22:23 Oxycodone /Acetaminophen 5-325mg Tab PO 1 tab Q6H PRN Administration Pain, Moderate (4-6) Quetiapine Fumarate 100 mg 03/02/22 22:00 03/04/22 10:09 Quetiapine 100 Mg Tab PO 100 mg BID [facility] Administration Sodium Chloride 10 ml 03/02/22 22:00 03/04/22 09:34 Sodium Chloride 0.9% 10 Ml Flush Syringe IV 10 ml BID [facility] Administration Sodium Chloride 10 ml 03/02/22 19:17 Sodium Chloride 0.9% 10 Ml Flush Syringe IV PRN PRN LINE FLUSH Sodium Polystyrene Sulfonate 30 gm 03/04/22 14:55 Sodium Polystyrene 15 Gm/60 Ml Oral Liqd PO 03/04/22 14:56 ONCE ONE Zolpidem Tartrate 5 mg 03/03/22 22:00 Zolpidem 5 Mg Tab PO QHS PRN Sleep
--- NOTE | 2022-03-04 15:51 | Discharge Summary ---
Providers - Providers Date of Admission: 03/02/22 15:00 Date of discharge: 03/04/22 Attending physician: DOMI CASTLE 03/02/22 19:17 Consult to Physician [CONS] Routine Comment: Consulting Provider: SEBAS DELGADO Physician Instructions: Reason For Exam: Hypervolemia Primary care physician: RN [facility] Hospitalization Reason for admission: Atypical chest pain/missed hemodialysis Condition: Fair Pertinent studies: CTA chest; no evidence of PE, cardiac enlargement, no acute abnormality noted Hospital course: Patient is a 66-year-old female hypertension hypothyroidism end-stage renal disease on hemodialysis was admitted through the emergency room with atypical chest pain , and missed hemodialysis due to noncompliance . Patient had negative stress test in January 2022. Patient was evaluated by nephrology, received hemodialysis per schedule Patient's chest pain slowly but gradually improved,Today patient is comfortable, no new complaints, hemodynamically and clinically stable at discharge I discussed with oven press tender, cleared for discharge HD TTS, Triple-lumen right groin catheter removed Strongly advised to comply with medications, diet, hemodialysis and follow-up visits Discharge diagnosis: --Volume overload Secondary to inadequate hemodialysis Received hemodialysis per schedule --End-stage renal disease on hemodialysis Continue hemodialysis as per schedule -- Tachycardia/resolvedHome CTA chest negative for PE Patient on Eliquis for atrial fibrillation -History of hyperthyroidism; Continue methimazole Patient will follow private insurance verification clerk upon discharge --Hypertension Well-controlled ,continue antihypertensives and adjust medications --T2DM (type 2 diabetes mellitus) HbA1c 6.3 , blood sugars in the lower range Patient is not requiring any insulin , Accu-Cheks sliding scale coverage ADA diet --Coronary artery disease Patient had a recent stress test which is negative No further work-up --Ongoing tobacco use; Smoking cessation counseling, nicotine patch as needed -- DVT prophylaxis On Eliquis and GI prophylaxis --Full CODE STATUS; --Advance care planning Current Visit: Yes Status: Acute Disease education conducted, care plan discussed, diagnosis discussed, prognosis is. Patient acknowledges understanding and agreement with care plan. +30 minutes. Cleared by consultants for discharge and follow-up per schedule Stable at discharge Disposition: HOME / SELF CARE / HOMELESS Final Discharge Diagnosis (Prints w/discharge instructions): Volume overload/due to ESRD/resolved. End-stage renal disease on hemodialysis. Tachycardia. History of hyperthyroidism. Hypertension. Type 2 diabetes mellitus. History of coronary artery disease. Atypical chest pain resolved Time spent for discharge: 35 min Core Measure Documentation - Palliative Care Palliative Care/ Comfort Measures: Not Applicable - Core Measures Any of the following diagnoses?: none Exam - Constitutional Vitals: Temp Pulse Resp BP Pulse Ox 97.2 F L 70 18 154/76 98 03/04/22 12:21 03/04/22 12:21 03/04/22 12:21 03/04/22 14:14 03/04/22 12:21 General appearance: Present: no acute distress, well-nourished - EENT Eyes: Present: PERRL, EOM intact - Neck Neck: Present: supple, normal ROM - Respiratory Respiratory effort: normal Respiratory: bilateral: diminished, negative: rales, rhonchi, wheezing - Cardiovascular Rhythm: regular Heart Sounds: Present: S1 & S2 - Extremities Extremities: no ischemia, No edema - Abdominal General gastrointestinal: Present: soft, non-tender, non-distended, normal bowel sounds - Integumentary Integumentary: Present: clear, warm - Musculoskeletal Musculoskeletal: strength equal bilaterally Plan Activity: advance as tolerated Diet: renal, other (Cardiac diet as tolerated) Additional Instructions: Follow renal/hemodialysis per schedule TTS. If you have worsening symptoms contact MD or go to the nearest emergency room as needed. Advised to follow cardiology in 2 week or as needed. Strongly advised to comply with medications diet and follow-up visits. Smoking cessation advised Follow up with: PRIMARY CARE, [Primary Care Provider] - 7 Days SEBAS DELGADO MD [Staff Physician] - 7 Days DEV BROWN MD [Staff Physician] - 14 Days Prescriptions: Zolpidem [Ambien] 5 mg PO QHS PRN #7 tablet PRN Reason: Sleep Metoprolol [Lopressor TAB] 100 mg PO BID #60 tablet
[2022-03-04 18:23] VITALS: BP 137/73
== END 2022-03-04 17:30 | disposition home health service (06) | DRG 640 ==
LOC: ED 13:53 → 3A 15:00
PROVIDERS: ADMIT Internal Medicine; ATTEND Internal Medicine
PROC: 5A1D70Z Performance of Urinary Filtration, Intermittent, Less than 6 Hours Per Day (ICD-10-PCS; principal; 2022-03-02)
DX: E87.70 Fluid overload, unspecified (principal); N18.6 End stage renal disease; I69.351 Hemiplegia and hemiparesis following cerebral infarction affecting right dominant side; I13.2 Hypertensive heart and chronic kidney disease with heart failure and with stage 5 chronic kidney disease, or end stage renal disease; I50.32 Chronic diastolic (congestive) heart failure; I25.10 Atherosclerotic heart disease of native coronary artery without angina pectoris; Z99.2 Dependence on renal dialysis; R07.89 Other chest pain; E78.00 Pure hypercholesterolemia, unspecified; E11.22 Type 2 diabetes mellitus with diabetic chronic kidney disease; J44.9 Chronic obstructive pulmonary disease, unspecified; F31.9 Bipolar disorder, unspecified; F20.9 Schizophrenia, unspecified; Z95.0 Presence of cardiac pacemaker; F17.200 Nicotine dependence, unspecified, uncomplicated; I48.0 Paroxysmal atrial fibrillation; Z91.15 Patient's noncompliance with renal dialysis; R00.0 Tachycardia, unspecified; E05.90 Thyrotoxicosis, unspecified without thyrotoxic crisis or storm; Z71.6 Tobacco abuse counseling; Z88.6 Allergy status to analgesic agent; Z79.82 Long term (current) use of aspirin; Z91.013 Allergy to seafood; Z91.018 Allergy to other foods; I25.2 Old myocardial infarction
CPT/HCPCS: 36415; 71045; 71275; 78580; 80048; 80053; 80074; 80076; 82550; 82553; 82565; 82962; 83690; 83735; 84439; 84443; 84484; 85025; 85027; 85379; 85610; 85730; 87641; 93005; 94760; 96374; 96375; 96376; 99406; G0378; J3490; A9540; J1644; J2270; J2405; J2785; J3010; Q9967

== ENCOUNTER 2022-03-09 08:01 | Inpatient (IN) | payer MEDICARE ==
--- NOTE | 2022-03-09 10:42 | XRay Report ---
CHEST 2 VIEWS INDICATION / CLINICAL INFORMATION: cp. COMPARISON: 02/27/2022 FINDINGS: SUPPORT DEVICES: Stable, satisfactory device positioning. HEART / MEDIASTINUM: Stable. LUNGS / PLEURA: No significant pulmonary or pleural abnormality. No pneumothorax. ADDITIONAL FINDINGS: No significant additional findings. IMPRESSION: 1. No acute findings. Signer Name: Moreno Overton MD Signed: 03/09/2022 10:38 AM Workstation Name: [id number]
--- NOTE | 2022-03-09 10:55 | Emergency Department Report ---
ED General Adult HPI - General Chief complaint: Chest Pain Stated complaint: CHEST PAIN/SONIA/HEADACHE Time Seen by Provider: 03/09/22 10:09 Source: patient, RN notes reviewed, old records reviewed Mode of arrival: Ambulatory Limitations: No Limitations - History of Present Illness Initial comments: This is a 66-year-old female. Past medical history is complex including end- stage renal disease on hemodialysis, Friday, , Friday, hypertension, h istory of stroke, history of myocardial infarction, CHF, tobacco dependence, chronic A. fib on anticoagulation, currently on Eliquis, type 2 diabetes, COPD, hyperlipidemia, bipolar disorder, and cardiac stent. Patient recently admitted to this hospital for similar symptoms. Patient had extensive work-up here in the emergency room, and multiple consultations including cardiology. She had a CTA of her chest which was negative for pulmonary embolism. She has recently had an unremarkable cardiac nuclear ischemic work-up. Cardiology specifically advised that no additional cardiac or stratification is necessary. With respect to the patient's atrial flutter, they recommend metoprolol and amiodarone, referred to outpatient EP. They also recommend guideline directed medical therapy for coronary artery disease and patent mid and distal LAD stents. The patient was last dialyzed 2 days ago. She presents to the ER today with complaints of chest wall pain, back pain, cough, but denies headache to me, neck pain, abdominal pain, vomiting, diaphoresis, exertional shortness of breath which is new or different, and she furthermore endorses compliance with her systemic anticoagulation. She is not homicidal suicidal. Her chest wall pain increases with palpation. It decreases with rest. She does feel mildly anxious at this time -: Gradual, hour(s), days(s) Location: chest, back Severity scale (0 -10): 8 Quality: aching Consistency: constant Improves with: rest Worsens with: movement - Related Data Home Medications Medication Instructions Recorded Confirmed Last Taken Quetiapine Fumarate [Seroquel] 100 mg PO BID 08/01/17 03/02/22 03/01/22 22:00 Hydralazine HCl 50 mg PO TID 02/06/22 03/02/22 03/01/22 22:00 cloNIDine [Catapres] 0.1 mg PO BID 02/06/22 03/03/22 03/02/22 10:00 Gabapentin 1 mg PO BID 03/02/22 03/03/22 Unknown Losartan [Cozaar] 50 mg PO QDAY 03/02/22 03/03/22 03/01/22 10:00 Nitroglycerin [Nitro-Bid] 0.1 mg TRANSDERMA Q6HR PRN 03/02/22 03/03/22 Unknown Pantoprazole [Protonix TAB] 40 mg PO QDAY 03/02/22 03/03/22 03/02/22 10:00 Sennosides/Docusate Sodium [Senna 8.6 mg PO DAILY 03/02/22 03/03/22 03/01/22 10:00 Plus 8.6-50 mg Tablet] methIMAzole [Methimazole] 10 mg PO TID 03/02/22 03/03/22 03/02/22 10:00 methocarbamoL [Methocarbamol] 1 mg PO BID 03/02/22 03/03/22 Unknown Previous Rx's Medication Instructions Recorded Last Taken Type Albuterol Mdi (or & Nicu Only) 2 puff IH QID PRN #1 inha 12/22/17 03/02/22 10:00 Rx [ProAir HFA Inhaler] Amiodarone [Cordarone 200 MG TAB] 200 mg PO BID #60 tablet 01/22/22 03/02/22 10:00 Rx Aspirin EC [Halfprin EC] 81 mg PO QDAY #30 tablet 01/22/22 02/05/22 09:00 Rx Apixaban [Eliquis] 5 mg PO BID #60 tab 02/28/22 03/02/22 10:00 Rx Metoprolol [Lopressor TAB] 100 mg PO BID #60 tablet 03/04/22 Unknown Rx Zolpidem [Ambien] 5 mg PO QHS PRN #7 tablet 03/04/22 Unknown Rx Acetaminophen [Non-Aspirin Extra 500 mg PO Q6HR PRN #30 tablet 03/09/22 Unknown Rx Strength] Albuterol Sulfate [Proair 90 mcg IH Q4HR PRN #2 aer.pow.ba 03/09/22 Unknown Rx Respiclick] Ipratropium (Nf) [Atrovent] 2 puff IH Q6HR PRN #1 inha 03/09/22 Unknown Rx predniSONE [Deltasone] 40 mg PO QDAY #8 tab 03/09/22 Unknown Rx Allergies Allergy/AdvReac Type Severity Reaction Status Date / Time apple AdvReac Hives Verified 02/27/22 09:44 aspirin AdvReac Unknown Verified 02/27/22 09:44 shell fish Allergy Swelling Uncoded 02/27/22 09:44 ED Review of Systems ROS: Stated complaint: CHEST PAIN/SONIA/HEADACHE Other details as noted in HPI Constitutional: denies: fever Eyes: denies: eye discharge ENT: denies: congestion Respiratory: cough, shortness of breath, wheezing Cardiovascular: chest pain Gastrointestinal: denies: abdominal pain, hematemesis, melena, hematochezia Musculoskeletal: back pain Neurological: denies: weakness Psychiatric: denies: homicidal thoughts, suicidal thoughts ED Past Medical Hx - Past Medical History Previous Medical History?: Yes Hx Hypertension: Yes Hx CVA: Yes (right sided weakness) Hx Heart Attack/AMI: Yes (1 stent) Hx Congestive Heart Failure: Yes Hx Diabetes: Yes Hx Renal Disease: Yes (RENAL INSUFFICIENCY- stent left kidney) Hx Sickle Cell Disease: No Hx Kidney Stones: No Hx Psychiatric Treatment: Yes (BIPOLAR/SCHIZOPHRENIA) Hx COPD: Yes Hx HIV: No Additional medical history: HIGH CHOLESTEROL - Surgical History Past Surgical History?: Yes Hx Coronary Stent: Yes Hx Pacemaker: Yes Additional Surgical History: stent placement x 2 in 2014, knee surgery 11/2017 - Social History Smoking Status: Never Smoker Substance Use Type: None - Medications Home Medications: Home Medications Medication Instructions Recorded Confirmed Last Taken Type Quetiapine Fumarate [Seroquel] 100 mg PO BID 08/01/17 03/02/22 03/01/22 22:00 History Albuterol Mdi (or & Nicu Only) 2 puff IH QID PRN #1 inha 12/22/17 03/03/22 03/02/22 10:00 Rx [ProAir HFA Inhaler] Amiodarone [Cordarone 200 MG TAB] 200 mg PO BID #60 tablet 01/22/22 03/02/22 03/02/22 10:00 Rx Aspirin EC [Halfprin EC] 81 mg PO QDAY #30 tablet 01/22/22 03/03/22 02/05/22 09:00 Rx Hydralazine HCl 50 mg PO TID 02/06/22 03/02/22 03/01/22 22:00 History cloNIDine [Catapres] 0.1 mg PO BID 02/06/22 03/03/22 03/02/22 10:00 History Apixaban [Eliquis] 5 mg PO BID #60 tab 02/28/22 03/02/22 03/02/22 10:00 Rx Gabapentin 1 mg PO BID 03/02/22 03/03/22 Unknown History Losartan [Cozaar] 50 mg PO QDAY 03/02/22 03/03/22 03/01/22 10:00 History Nitroglycerin [Nitro-Bid] 0.1 mg TRANSDERMA Q6HR PRN 03/02/22 03/03/22 Unknown History Pantoprazole [Protonix TAB] 40 mg PO QDAY 03/02/22 03/03/22 03/02/22 10:00 History Sennosides/Docusate Sodium [Senna 8.6 mg PO DAILY 03/02/22 03/03/22 03/01/22 10:00 History Plus 8.6-50 mg Tablet] methIMAzole [Methimazole] 10 mg PO TID 03/02/22 03/03/22 03/02/22 10:00 History methocarbamoL [Methocarbamol] 1 mg PO BID 03/02/22 03/03/22 Unknown History Metoprolol [Lopressor TAB] 100 mg PO BID #60 tablet 03/04/22 Unknown Rx Zolpidem [Ambien] 5 mg PO QHS PRN #7 tablet 03/04/22 Unknown Rx Acetaminophen [Non-Aspirin Extra 500 mg PO Q6HR PRN #30 tablet 03/09/22 Unknown Rx Strength] Albuterol Sulfate [Proair 90 mcg IH Q4HR PRN #2 aer.pow.ba 03/09/22 Unknown Rx Respiclick] Ipratropium (Nf) [Atrovent] 2 puff IH Q6HR PRN #1 inha 03/09/22 Unknown Rx predniSONE [Deltasone] 40 mg PO QDAY #8 tab 03/09/22 Unknown Rx ED Physical Exam - General Limitations: No Limitations General appearance: alert, anxious - Head Head exam: Present: atraumatic, normocephalic - Eye Eye exam: Present: normal appearance, EOMI. Absent: nystagmus - ENT ENT exam: Present: normal exam, normal orophraynx, mucous membranes moist, normal external ear exam - Neck Neck exam: Present: normal inspection, full ROM. Absent: tenderness, meningismus - Respiratory Respiratory exam: Present: wheezes, rhonchi, chest wall tenderness. Absent: respiratory distress - Cardiovascular Cardiovascular Exam: Present: tachycardia, irregular rhythm, normal heart sounds. Absent: bradycardia, systolic murmur, diastolic murmur, rubs, gallop - GI/Abdominal GI/Abdominal exam: Present: soft. Absent: distended, tenderness, guarding, rebound, rigid, pulsatile mass - Extremities Exam Extremities exam: Present: normal inspection (Right upper extremity thrill, no redness, there is no redness, pus), full ROM, pedal edema (Lower extremity edema), other (2+ pulses noted in the bilateral upper and lower extremities. There is no palpable cord. negative Homans sign. Muscular compartments are soft. The pelvis is stable.). Absent: calf tenderness - Back Exam Back exam: Present: normal inspection. Absent: tenderness, CVA tenderness (R), CVA tenderness (L), paraspinal tenderness, vertebral tenderness - Neurological Exam Neurological exam: Present: alert, oriented X3, other (No facial droop. Tongue midline. Extraocular movements intact bilaterally. Facial sensation intact to light touch in V1, V2, V3 distribution bilaterally. 5 and a 5 strength in 4 extremities. Sensation intact to light touch in 4 extremities.). Absent: motor sensory deficit - Psychiatric Psychiatric exam: Absent: homicidal ideation, suicidal ideation - Skin Skin exam: Present: warm, dry, intact, normal color. Absent: rash ED Course Vital Signs 03/09/22 03/09/22 03/09/22 08:23 10:44 11:31 Temperature 98.3 F Pulse Rate 92 H Pulse Rate [ 18 L Anterior Bilateral Throughout] Respiratory 18 Rate Respiratory 108 H Rate [Anterior Bilateral Throughout] Blood Pressure 184/106 [Right] O2 Sat by Pulse 99 94 Oximetry - Reevaluation(s) Reevaluation #1: 03/09/22 11:28 Differential diagnosis, including but not limited to: Costochondritis, congestive heart failure, end-stage renal disease, chronic coronary artery disease, COPD, pneumonia A. fib with RVR Assessment and plan: 66-year-old female with a primary complaint of chest wall pain. She was recently ruled out for pulmonary embolism at this facility, and she is currently maintained on systemic anticoagulation, Eliquis. I think she is low risk by Wells criteria for pulmonary embolism, and she is very unlikely to have a PE or DVT at this time. Her cardiovascular risk factor profile is reviewed and appreciated. However, she was just recently seen by cardiology at this facility, and cardiology advises that the patient recently had a nuclear stress test which is negative for ischemic findings. Her EKG is unchanged from prior, and she has been having nonspecific chest discomfort since yesterday. Pain is present for greater than 8 hours, and we anticipate some degree of elevated troponin given her chronic renal insufficiency. However, should first troponin be similar to prior troponin levels, acute c change in her CAD is unlikely. She is found to be in A. fib with RVR, and has some wheezes and rhonchi. Also mildly hypoxic start diltiazem, give albuterol and Atrovent. Treat symptoms. The patient makes no complaint of chest pain to myself, and she is clinically sober with a GCS of 15. 03/09/22 12:59 Reevaluation #2: 03/09/22 12:12 Heart rate 106 to 114 bpm at this time. This is likely secondary to albuterol. Troponin negative x1. Laboratory studies with chronic abnormalities, elevated proBNP likely secondary to chronic end-stage renal disease, as well as COPD. Patient on a cell phone, and appears to be more comfortable. Additional home oral medications pending 03/09/22 12:42 Heart rate now 130 bpm. Suspect that tachycardia may be secondary to underlying albuterol, which in turn was required for cough, wheezing, shortness of breath, O2 sat of 88% initially. Patient has received multiple intravenous and little medication at home. I have diltiazem drip as ordered. Contacted her primary puller through, Dr. Leonela Delgado Discussed the patient's history, physical, laboratory studies and imaging studies and clinical impression. He will follow in consultation. Hospital physician, Dr. Torre to assume care. Awaiting callback from critical care Given need for diltiazem drip, admit to the ICU 03/09/22 12:58 Reevaluation #3: 03/09/22 12:58 Dr Bain of critical care to follow 03/09/22 12:59 ED Medical Decision Making - Lab Data Result diagrams: 03/09/22 11:19 03/09/22 11:19 Vital Signs 03/09/22 03/09/22 08:23 10:44 Temperature 98.3 F Pulse Rate 92 H Respiratory 18 Rate Blood Pressure 184/106 [Right] O2 Sat by Pulse 99 94 Oximetry Lab Results 03/09/22 03/09/22 03/09/22 Range/Units 11:19 11:19 11:19 WBC 8.6 (4.5-11.0) K/mm3 RBC 3.77 (3.65-5.03) M/mm3 Hgb 11.8 (10.1-14.3) gm/dl Hct 35.9 (30.3-42.9) % MCV 95 (79-97) fl MCH 31 (28-32) pg MCHC 33 (30-34) % RDW 18.0 H (13.2-15.2) % Plt Count 131 L (140-440) K/mm3 Lymph % (Auto) 16.8 (13.4-35.0) % Meade % (Auto) 7.7 H (0.0-7.3) % Eos % (Auto) 3.4 (0.0-4.3) % Baso % (Auto) 0.8 (0.0-1.8) % Lymph # (Auto) 1.4 (1.2-5.4) K/mm3 Meade # (Auto) 0.7 (0.0-0.8) K/mm3 Eos # (Auto) 0.3 (0.0-0.4) K/mm3 Baso # (Auto) 0.1 (0.0-0.1) K/mm3 Seg Neutrophils % 71.3 H (40.0-70.0) % Seg Neutrophils # 6.1 (1.8-7.7) K/mm3 Sodium 143 (137-145) mmol/L Potassium 4.0 D (3.6-5.0) mmol/L Chloride 102.1 (98-107) mmol/L Carbon Dioxide 26 (22-30) mmol/L Anion Gap 19 mmol/L BUN 30 H (7-17) mg/dL Creatinine 4.1 H (0.6-1.2) mg/dL Estimated GFR 13 ml/min BUN/Creatinine Ratio 7 % Glucose 81 (65-100) mg/dL Calcium 9.3 (8.4-10.2) mg/dL Phosphorus 4.80 H (2.5-4.5) mg/dL Magnesium 2.00 (1.7-2.3) mg/dL Total Bilirubin 0.50 (0.1-1.2) mg/dL AST 13 (5-40) units/L ALT 7 (7-56) units/L Alkaline Phosphatase 73 (35-129) units/L Troponin T 0.011 (0.00-0.029) ng/mL NT-Pro-B Natriuret Pep 73176 H (0-900) pg/mL Total Protein 6.1 L (6.3-8.2) g/dL Albumin 4.3 (3.9-5) g/dL Albumin/Globulin Ratio 2.4 % - EKG Data -: EKG Interpreted by Me Rate: tachycardia - EKG Data 03/09/22 11:27 The EKG is interpreted at 08: 3 3 A flutter/fib, 108 bpm. Left axis deviation, QTC 503 ms, Q waves noted in the inferior leads. This is an abnormal EKG. This is not a STEMI. Poor R wave progression. Appears grossly unchanged from prior EKG from February 2022. Left ventricular hypertrophy - Radiology Data Radiology results: pending, report reviewed, image reviewed CHEST 2 VIEWS INDICATION / CLINICAL INFORMATION: cp. COMPARISON: 02/27/2022 FINDINGS: SUPPORT DEVICES: Stable, satisfactory device positioning. HEART / MEDIASTINUM: Stable. LUNGS / PLEURA: No significant pulmonary or pleural abnormality. No pneumothorax. ADDITIONAL FINDINGS: No significant additional findings. IMPRESSION: 1. No acute findings. Signer Name: Moreno Overton MD Signed: 03/09/2022 9:38 AM Workstation Name: [id number] CT angio chest INDICATION / CLINICAL INFORMATION: Chest pain OMNIPAQUE 350 100ML DIALYSIS PT. TECHNIQUE: Axial CT images were obtained through the chest after injection of 100 cc of Omnipaque 350 IV contrast. 3 plane MIP and/or 3D reconstructions were produced. All CT scans at this location are performed using CT dose reduction for ALARA by means of automated exposure control. COMPARISON: Chest radiograph from 02/27/2022. FINDINGS: PULMONARY ARTERIES: No central or segmental pulmonary embolus. THORACIC AORTA: Mild atherosclerotic calcification without acute abnormality. HEART: There is cardiac enlargement. No pericardial effusion. Left-sided cardiac conduction device leads terminate within the right atrium and right ventricle. CORONARY ARTERY CALCIFICATION: Stent or calcifications in the LAD. LYMPHADENOPATHY: No significant thoracic lymphadenopathy. LUNGS/PLEURA: There is mild emphysema. No acute interstitial or airspace disease. No pleural effusion or pneumothorax. OTHER FINDINGS: Right IJ dialysis catheter terminates in the right atrium. UPPER ABDOMEN: No acute findings. SKELETAL SYSTEM: No acute osseous findings. IMPRESSION: 1. No e vidence of pulmonary embolus. 2. Cardiac enlargement. No acute findings in the chest. 3. Other incidental findings as above. Signer Name: Remington Huggins MD Signed: 03/02/2022 3:38 PM Critical Care Time: Yes Critical care time in (mins) excluding proc time.: 35 Critical care attestation.: If time is entered above; I have spent that time in minutes in the direct care of this critically ill patient, excluding procedure time. ED Disposition Clinical Impression: Atrial fibrillation with RVR, COPD exacerbation, Chest wall pain, End stage renal disease, Hypertension, End-stage renal disease on hemodialysis Disposition: 09 ADMITTED INPATIENT Is pt being admited?: Yes Does the pt Need Aspirin: No Condition: Serious Instructions: Nonspecific Chest Pain, Adult, Chronic Bronchitis (ED), Hypertension (ED) Additional Instructions: Please continue current outpatient medications. Please take the prescribed medications as needed and directed. Please follow-up with your outpatient puller through in 24 to 48 hours for repeat checkup and evaluation and repeat laboratory studies. Please return to the emergency room right away with new pain, worsened pain, migration of pain, projectile vomiting, change in mental status, confusion, inability tolerate liquid feeds, new, worsened or different symptoms not present on the initial emergency room evaluation Prescriptions: Ipratropium (Nf) [Atrovent] 2 puff IH Q6HR PRN #1 inha PRN Reason: Wheezing predniSONE [Deltasone] 40 mg PO QDAY #8 tab Acetaminophen [Non-Aspirin Extra Strength] 500 mg PO Q6HR PRN #30 tablet PRN Reason: Pain , Severe (7-10) Albuterol Sulfate [Proair Respiclick] 90 mcg IH Q4HR PRN #2 aer.pow.ba PRN Reason: Wheezing Referrals: VICENTA CUELLO DO [Primary Care Provider] - 3-5 Days SEBAS DELGADO MD [Staff Physician] - 3-5 Days
[2022-03-09] MEDS ORDERED: ACETAMINOPHEN 325 MG TAB PO ONE (11:13)
[2022-03-09] MEDS ORDERED: MORPHINE 2 MG/1 ML INJ IV ONE (11:13)
[2022-03-09] MEDS ORDERED: dilTIAZem 25 MG/5 ML INJ IV ONE ×3 (11:13→12:06)
[2022-03-09] MEDS ORDERED: METHIMAZOLE 10 MG PO STA (11:18)
[2022-03-09] MEDS ORDERED: NON-FORMULARY EACH (Hydralazine Hcl [Hydralazine Hcl] 50 MG Tablet) PO STA (11:18)
[2022-03-09] MEDS ORDERED: METOPROLOL TARTRATE 5 MG/5 ML INJ IV ONE (11:18)
[2022-03-09] MEDS ORDERED: IPRATROPIUM 0.02% NEBU 2.5 ML IH ONE (11:24)
[2022-03-09] MEDS ORDERED: ALBUTEROL 2.5 MG/3 ML NEBU IH ONE (11:24)
[2022-03-09] MEDS ORDERED: hydrALAZINE 25 MG TAB PO STA (11:30)
[2022-03-09] MEDS ORDERED: NON-FORMULARY EACH (Apixaban 5 MG Tablet) PO SCH (11:30)
[2022-03-09] MEDS ORDERED: methylPREDNISolone Sod Succinate 125 MG/2 ML INJ IV ONE (11:32)
[2022-03-09] MEDS ORDERED: methIMAzole 5 MG TAB PO STA (11:32)
[2022-03-09 11:42] LABS: Basophils # (Auto) 0.1 K/mm3 (0.0-0.1); Basophils % (Auto) 0.8 % (0.0-1.8); Eosinophils # (Auto) 0.3 K/mm3 (0.0-0.4); Eosinophils % (Auto) 3.4 % (0.0-4.3); Hematocrit 35.9 % (30.3-42.9); Hemoglobin 11.8 gm/dl (10.1-14.3); Lymphocytes # (Auto) 1.4 K/mm3 (1.2-5.4); Lymphocytes % (Auto) 16.8 % (13.4-35.0); Mean Corpuscular HGB Conc 33 % (30-34); Mean Corpuscular Volume 95 fl (79-97); Monocytes # (Auto) 0.7 K/mm3 (0.0-0.8); Monocytes % (Auto) 7.7 % (0.0-7.3); Platelet Count 131 K/mm3 (140-440); Red Blood Count 3.77 M/mm3 (3.65-5.03)
[2022-03-09] MEDS: ASPIRIN EC 81 MG TAB PO SCH (11:47)
[2022-03-09] MEDS: LOSARTAN 50 MG TAB PO SCH (11:47)
[2022-03-09] MEDS ORDERED: GABAPENTIN 100 MG CAP PO SCH (12:00)
[2022-03-09 12:06] LABS: Albumin 4.3 g/dL (3.9-5); Calcium 9.3 mg/dL (8.4-10.2)
[2022-03-09] MEDS: AMIODARONE 200 MG TAB PO SCH ×2 (12:30→21:38)
[2022-03-09] MEDS ORDERED: ACETAMINOPHEN 325 MG TAB PO PRN (12:42)
[2022-03-09] MEDS ORDERED: ALBUTEROL 2.5 MG/3 ML NEBU IH PRN (12:42)
--- NOTE | 2022-03-09 12:42 | History and Physical Report ---
History of Present Illness Chief complaint: My chest is hurting and my heart is beating really fast History of present illness: 66 YO Female with ESRD on HD(T,R,Sa), HTN, CVA, OH, CHF, Nicotine Dependence, Atrial Fib on Therapeutic Anticoagulation, DM, CKD, COPD, HLD, Bipolar Disorder, CAD S/P Stent Placement presents to ED for evaluation. Patient reports "my chest is hurting and my heart is beating fast". Patient states that she experienced a sudden onset of chest pain today which began shortly after awakening from sleep. Patient states that the level of her chest pain is 8/10, constant, associated with shortness of breath, not worsened with exertion, not relieved with rest. Patient acknowledges chest palpitations, decreased exercise tolerance, dyspnea on exertion, dyspnea at rest, subjective weight gain over the past 1 week. EMS notified and upon arrival the patient was found to be in distress and subsequent transported to [facility] for further care and evaluation of the aforementioned symptoms. Patient was seen and evaluated in the emergency department. All lab and imaging studies reviewed. Patient found to have EKG and atrial fibrillation clinical symptoms consistent with CHF decompensation, as well as end-stage renal disease, fluid overload. Patient admitted to telemetry due to increased risk of cardiac decompensation and for medical stabilization. Nephrology team consulted in ED for urgent dialysis. Cardiology team consulted in ED. Pt denies fever, chills, productive cough, unilateral leg swelling, calf pain, NVD, syncope, dizziness, or recent ill contacts, syncope, known exposure to COVID-19. Prior admission on 01/19/2022 reviewed. All medication listed at time of admission has been reconciled. Advanced care planning conducted in ED. Past History Past Medical History: acute OH, atrial fib, COPD, ESRD, hypertension, hyperlipidemia, stroke, other (See HPI) Past Surgical History: total knee replacement, Other ((stent placement x 2 in 2014, knee surgery 11/2017, right upper extremity fistula)) Social history: . denies: smoking, alcohol abuse, prescription drug abuse Family history: diabetes, hypertension Medications and Allergies Allergies Allergy/AdvReac Type Severity Reaction Status Date / Time apple AdvReac Hives Verified 02/27/22 09:44 aspirin AdvReac Unknown Verified 02/27/22 09:44 shell fish Allergy Swelling Uncoded 02/27/22 09:44 Home Medications Medication Instructions Recorded Confirmed Last Taken Type Quetiapine Fumarate [Seroquel] 100 mg PO BID 08/01/17 03/02/22 03/01/22 22:00 History Albuterol Mdi (or & Nicu Only) 2 puff IH QID PRN #1 inha 12/22/17 03/03/22 03/02/22 10:00 Rx [ProAir HFA Inhaler] Amiodarone [Cordarone 200 MG TAB] 200 mg PO BID #60 tablet 01/22/22 03/02/22 03/02/22 10:00 Rx Aspirin EC [Halfprin EC] 81 mg PO QDAY #30 tablet 01/22/22 03/03/22 02/05/22 09:00 Rx Hydralazine HCl 50 mg PO TID 02/06/22 03/02/22 03/01/22 22:00 History cloNIDine [Catapres] 0.1 mg PO BID 02/06/22 03/03/22 03/02/22 10:00 History Apixaban [Eliquis] 5 mg PO BID #60 tab 02/28/22 03/02/22 03/02/22 10:00 Rx Gabapentin 1 mg PO BID 03/02/22 03/03/22 Unknown History Losartan [Cozaar] 50 mg PO QDAY 03/02/22 03/03/22 03/01/22 10:00 History Nitroglycerin [Nitro-Bid] 0.1 mg TRANSDERMA Q6HR PRN 03/02/22 03/03/22 Unknown History Pantoprazole [Protonix TAB] 40 mg PO QDAY 03/02/22 03/03/22 03/02/22 10:00 History Sennosides/Docusate Sodium [Senna 8.6 mg PO DAILY 03/02/22 03/03/22 03/01/22 10:00 History Plus 8.6-50 mg Tablet] methIMAzole [Methimazole] 10 mg PO TID 03/02/22 03/03/22 03/02/22 10:00 History methocarbamoL [Methocarbamol] 1 mg PO BID 03/02/22 03/03/22 Unknown History Metoprolol [Lopressor TAB] 100 mg PO BID #60 tablet 03/04/22 Unknown Rx Zolpidem [Ambien] 5 mg PO QHS PRN #7 tablet 03/04/22 Unknown Rx Acetaminophen [Non-Aspirin Extra 500 mg PO Q6HR PRN #30 tablet 03/09/22 Unknown Rx Strength] Albuterol Sulfate [Proair 90 mcg IH Q4HR PRN #2 aer.pow.ba 03/09/22 Unknown Rx Respiclick] Ipratropium (Nf) [Atrovent] 2 puff IH Q6HR PRN #1 inha 03/09/22 Unknown Rx predniSONE [Deltasone] 40 mg PO QDAY #8 tab 03/09/22 Unknown Rx Active Meds: Active Medications Amiodarone HCl (Amiodarone 200 Mg Tab) 200 mg PO BID [facility] Last Admin: 03/09/22 12:30 Dose: 200 mg Apixaban (Apixaban 5 Mg Tab) 5 mg PO Q12HR [facility] Aspirin (Aspirin Ec 81 Mg Tab) 81 mg PO QDAY [facility] Last Admin: 03/09/22 11:47 Dose: 81 mg Gabapentin (Gabapentin 100 Mg Cap) 100 mg PO BID [facility] Diltiazem HCl (Cardizem/D5w 100mg/100ml) 100 mg in 100 mls @ 5 mls/hr IV TITR [facility]; Protocol Losartan Potassium (Losartan 50 Mg Tab) 50 mg PO QDAY [facility] Last Admin: 03/09/22 11:47 Dose: 50 mg Review of Systems Constitutional: weight gain, fatigue, weakness, no weight loss, no fever, no chills Ears, nose, mouth and throat: no ear pain, no tinnitis, no decreased hearing, no nose pain, no nasal congestion Cardiovascular: chest pain, shortness of breath, dyspnea on exertion, high blood pressure, decreased exercise tolerance Respiratory: no cough Gastrointestinal: no abdominal pain, no change in bowel habits Genitourinary Female: no pelvic pain, no flank pain, no dysuria, no urinary frequency, no urgency Rectal: no pain, no incontinence, no bleeding Musculoskeletal: no neck stiffness, no neck pain, no shooting arm pain, no low back pain, no shooting leg pain, no leg numbness/tingling Integumentary: no rash, no pruritis, no redness, no sores, no wounds Neurological: no head injury, no transient paralysis, no weakness, no parathesias, no tingling, no seizures Psychiatric: no anxiety, no change in sleep habits, no insomnia, no change in libido Endocrine: no cold intolerance, no polyphagia, no excessive thirst, no polydipsia, no polyuria, no nocturia, no excessive sweating Hematologic/Lymphatic: no easy bruising, no easy bleeding Allergic/Immunologic: no urticaria, no allergic rhinitis, no wheezing Exam - Constitutional Vitals: Temp Pulse Resp BP Pulse Ox 98.3 F 18 L 108 H 184/106 94 03/09/22 08:23 03/09/22 11:31 03/09/22 11:31 03/09/22 08:23 03/09/22 10:44 General appearance: Present: mild distress - EENT Eyes: Present: PERRL ENT: hearing intact, clear oral mucosa - Neck Neck: Present: supple, normal ROM - Respiratory Respiratory effort: normal Respiratory: bilateral: diminished, rales - Cardiovascular Rhythm: irregularly irregular - Extremities Extremities: no ischemia Extremity abnormal: edema Peripheral Pulses: within normal limits - Abdominal General gastrointestinal: Present: soft, non-tender, non-distended, normal bowel sounds Female genitourinary: Present: normal - Integumentary Integumentary: Present: clear, warm, dry - Musculoskeletal Musculoskeletal: generalized weakness - Psychiatric Psychiatric: appropriate mood/affect, intact judgment & insight - Neurologic Neurologic: CNII-XII intact, moves all extremities HEART Score - HEART Score Troponin: Troponin T 0.011 ng/mL (0.00-0.029) 03/09/22 11:19 Results - Labs CBC & Chem 7: 03/09/22 11:19 03/09/22 11:19 Labs: Abnormal lab results 03/09/22 03/09/22 03/09/22 Range/Units 11:19 11:19 11:19 RDW 18.0 H (13.2-15.2) % Plt Count 131 L (140-440) K/mm3 [place] % (Auto) 7.7 H (0.0-7.3) % Seg Neutrophils % 71.3 H (40.0-70.0) % BUN 30 H (7-17) mg/dL Creatinine 4.1 H (0.6-1.2) mg/dL Phosphorus 4.80 H (2.5-4.5) mg/dL NT-Pro-B Natriuret Pep 13843 H (0-900) pg/mL Total Protein 6.1 L (6.3-8.2) g/dL Assessment and Plan - Patient Problems (1) Atrial fibrillation with rapid ventricular response Current Visit: Yes Status: Acute Plan to address problem: Admit to ICU, patient initiated on Cardizem drip for rate control, telemetry monitoring, titrate Cardizem drip to maintain a heart rate less than or equal to 100 bpm. Cardiology team consulted. The high probability of a clinically significant, sudden or life threatening deterioration of the [cardiac, renal, endocrine, pulmonary] system(s) required my full and direct attention, intervention and personal management. The aggregate critical care time was [65] minutes. This time is in addition to time spent performing reported procedures but includes the following: [x] Data Review and interpretation [x] Patient assessment and monitoring of vital signs [x] Documentation [x] Medication orders and management (2) CHF (congestive heart failure) Current Visit: No Status: Acute Qualifiers: Heart failure type: diastolic Heart failure chronicity: acute on chronic Qualified Code(s): I50.33 - Acute on chronic diastolic (congestive) heart failure Plan to address problem: CHF protocol: Strict I's/O, monitor urine output every shift, daily weight, afterload reduction, blood pressure control, urgent dialysis, cardiology team consulted. (3) End stage renal disease Current Visit: Yes Status: Chronic Plan to address problem: Nephrology team consulted in ED, dialysis as per renal team. (4) Hypertension Current Visit: Yes Status: Chronic Qualifiers: Hypertension type: primary hypertension Plan to address problem: Monitor blood pressure every shift, continue medical management. (5) Hypertension Current Visit: Yes Status: Acute (6) Hyperlipidemia Current Visit: Yes Status: Acute Qualifiers: Hyperlipidemia type: mixed hyperlipidemia Qualified Code(s): E78.2 - Mixed hyperlipidemia Plan to address problem: Low-cholesterol diet, statin therapy as clinically indicated. (7) Diabetes Current Visit: Yes Status: Acute Plan to address problem: Consistent carbohydrate diet, Accu-Chek, insulin protocol, hypoglycemia protoc ol. (8) DVT prophylaxis Current Visit: Yes Status: Acute Plan to address problem: SCD to bilateral lower extremities while in bed, continue therapeutic anticoagulation. (9) Advance care planning Current Visit: Yes Status: Acute Plan to address problem: Disease education data, care plan discussed, diagnoses discussed, prognosis discussed, patient is full code. Patient acknowledges understanding and agreem ent with care plan, +30 minutes.
[2022-03-09] MEDS ORDERED: HEPARIN 10,000 UNIT/1 ML VIAL IV PRN (13:17)
[2022-03-09] MEDS ORDERED: SODIUM CHLORIDE 0.9% 100 ML IV PRN (13:17)
--- NOTE | 2022-03-09 13:28 | Consultation ---
History of Present Illness - Reason for Consult Consult date: 03/09/22 - History of Present Illness 66yr F with prior Cardiac hx s/p ICD, presented to ED c/o CP & Nausea. Pt has h/o ESRD on HD q TTS at a [facility] but does not know location or [employer] Past History Past Medical History: atrial fib, CAD, diabetes, ESRD (On HD q TTS), hyperten benjamin Family history: other (Mother, Brother had ESRD on dialysis, both ) Medications and Allergies Allergies Allergy/AdvReac Type Severity Reaction Status Date / Time apple AdvReac Hives Verified 02/27/22 09:44 aspirin AdvReac Unknown Verified 02/27/22 09:44 shell fish Allergy Swelling Uncoded 02/27/22 09:44 Home Medications Medication Instructions Recorded Confirmed Last Taken Type Quetiapine Fumarate [Seroquel] 100 mg PO BID 08/01/17 03/02/22 03/01/22 22:00 History Albuterol Mdi (or & Nicu Only) 2 puff IH QID PRN #1 inha 12/22/17 03/03/22 03/02/22 10:00 Rx [ProAir HFA Inhaler] Amiodarone [Cordarone 200 MG TAB] 200 mg PO BID #60 tablet 01/22/22 03/02/22 0 03/02/22 10:00 Rx Aspirin EC [Halfprin EC] 81 mg PO QDAY #30 tablet 01/22/22 03/03/22 02/05/22 09:00 Rx Hydralazine HCl 50 mg PO TID 02/06/22 03/02/22 03/01/22 22:00 History cloNIDine [Catapres] 0.1 mg PO BID 02/06/22 03/03/22 03/02/22 10:00 History Apixaban [Eliquis] 5 mg PO BID #60 tab 02/28/22 03/02/22 03/02/22 10:00 Rx Gabapentin 1 mg PO BID 03/02/22 03/03/22 Unknown History Losartan [Cozaar] 50 mg PO QDAY 03/02/22 03/03/22 03/01/22 10:00 History Nitroglycerin [Nitro-Bid] 0.1 mg TRANSDERMA Q6HR PRN 03/02/22 03/03/22 Unknown History Pantoprazole [Protonix TAB] 40 mg PO QDAY 03/02/22 03/03/22 03/02/22 10:00 History Sennosides/Docusate Sodium [Senna 8.6 mg PO DAILY 03/02/22 03/03/22 03/01/22 10:00 History Plus 8.6-50 mg Tablet] methIMAzole [Methimazole] 10 mg PO TID 03/02/22 03/03/22 03/02/22 10:00 History methocarbamoL [Methocarbamol] 1 mg PO BID 03/02/22 03/03/22 Unknown History Metoprolol [Lopressor TAB] 100 mg PO BID #60 tablet 03/04/22 Unknown Rx Zolpidem [Ambien] 5 mg PO QHS PRN #7 tablet 03/04/22 Unknown Rx Acetaminophen [Non-Aspirin Extra 500 mg PO Q6HR PRN #30 tablet 03/09/22 Unknown Rx Strength] Albuterol Sulfate [Proair 90 mcg IH Q4HR PRN #2 aer.pow.ba 03/09/22 Unknown Rx Respiclick] Ipratropium (Nf) [Atrovent] 2 puff IH Q6HR PRN #1 inha 03/09/22 Unknown Rx predniSONE [Deltasone] 40 mg PO QDAY #8 tab 03/09/22 Unknown Rx Active Meds: Active Medications Acetaminophen (Acetaminophen 325 Mg Tab) 650 mg PO Q6H PRN PRN Reason: Pain MILD(1-3)/Fever >100.5/SILVA Albuterol (Albuterol 2.5 Mg/3 Ml Nebu) 2.5 mg IH Q3HRT PRN PRN Reason: Shortness Of Breath Amiodarone HCl (Amiodarone 200 Mg Tab) 200 mg PO BID [facility] Last Admin: 03/09/22 12:30 Dose: 200 mg Apixaban (Apixaban 5 Mg Tab) 5 mg PO Q12HR [facility] Aspirin (Aspirin Ec 81 Mg Tab) 81 mg PO QDAY [facility] Last Admin: 03/09/22 11:47 Dose: 81 mg Gabapentin (Gabapentin 100 Mg Cap) 100 mg PO BID [facility] Hydromorphone HCl (Hydromorphone 1 Mg/1 Ml Inj) 0.5 mg IV Q13H PRN PRN Reason: Pain , Severe (7-10) Diltiazem HCl (Cardizem/D5w 100mg/100ml) 100 mg in 100 mls @ 5 mls/hr IV TITR [facility]; Protocol Losartan Potassium (Losartan 50 Mg Tab) 50 mg PO QDAY [facility] Last Admin: 03/09/22 11:47 Dose: 50 mg Metoprolol Tartrate (Metoprolol Tartrate 100 Mg Tab) 100 mg PO BID [facility] Oxycodone/Acetaminophen (Oxycodone /Acetaminophen 5-325mg Tab) 1 tab PO Q6H PRN PRN Reason: Pain, Moderate (4-6) Sodium Chloride (Sodium Chloride 0.9% 10 Ml Flush Syringe) 10 ml IV BID [facility] Sodium Chloride (Sodium Chloride 0.9% 10 Ml Flush Syringe) 10 ml IV PRN PRN PRN Reason: LINE FLUSH Review of Systems Constitutional: no fever, no chills Cardiovascular: chest pain, shortness of breath, no palpitations, no leg edema Respiratory: shortness of breath, no cough Gastrointestinal: nausea, no abdominal pain, no vomiting, no diarrhea Neurological: no numbness Exam - Vital Signs Vital signs: Vital Signs Temp Pulse Resp BP Pulse Ox 98.3 F 92 H 18 184/106 99 03/09/22 08:23 03/09/22 08:23 03/09/22 08:23 03/09/22 08:23 03/09/22 08:23 - General Appearance General appearance: other (Awake & verbally responsive) EENT: PERRL, mucous membranes moist Neck: Present: neck supple. Absent: JVD/HJR Respiratory: Other (Good air entry) Heart: regular, S1S2 Gastrointestinal: Present: normal Neurologic: other (Moves extremities) Results - Lab Results 03/09/22 11:19 03/09/22 11:19 Most recent lab results Calcium 9.3 mg/dL (8.4-10.2) 03/09/22 11:19 Phosphorus 4.80 mg/dL (2.5-4.5) H 03/09/22 11:19 Magnesium 2.00 mg/dL (1.7-2.3) 03/09/22 11:19 Assessment and Plan ESRD - [facility] - Review meds & adjust as necessary CP - W/u & Mx per Cardiology Thanks, will f/u with you
[2022-03-09] MEDS: oxyCODONE /ACETAMINOPHEN 5-325MG TAB PO PRN (14:00)
[2022-03-09] MEDS: dilTIAZem/D5W 100 MG/100 ML BAG IV SCH (14:05)
[2022-03-09] MEDS: GABAPENTIN 100 MG CAP PO SCH (21:37)
[2022-03-09] MEDS: APIXABAN 5 MG TAB PO SCH (21:37)
[2022-03-09] MEDS: METOPROLOL TARTRATE 100 MG TAB PO SCH (21:37)
[2022-03-09] MEDS: HYDROmorphone 1 MG/1 ML INJ IV PRN (21:42)
[2022-03-10] MEDS ORDERED: cloNIDine 0.1 MG TAB PO ONE ×2 (00:03→01:03)
[2022-03-10] MEDS: oxyCODONE /ACETAMINOPHEN 5-325MG TAB PO PRN (01:35)
[2022-03-10] MEDS: dilTIAZem/D5W 100 MG/100 ML BAG IV SCH (01:37)
[2022-03-10 05:06] LABS: Calcium 9.7 mg/dL (8.4-10.2)
[2022-03-10] MEDS ORDERED: DEXTROSE 50% IN WATER (25GM) 50 ML SYRINGE IV PRN (08:12)
[2022-03-10] MEDS: ASPIRIN EC 81 MG TAB PO SCH (10:32)
[2022-03-10] MEDS: GABAPENTIN 100 MG CAP PO SCH ×2 (10:33→21:25)
[2022-03-10] MEDS: LOSARTAN 50 MG TAB PO SCH (10:33)
[2022-03-10] MEDS: APIXABAN 5 MG TAB PO SCH ×2 (10:33→21:25)
[2022-03-10] MEDS: hydrALAZINE 25 MG TAB PO SCH ×3 (10:34→21:24)
[2022-03-10] MEDS: METOPROLOL TARTRATE 100 MG TAB PO SCH ×2 (10:34→21:24)
[2022-03-10] MEDS: AMIODARONE 200 MG TAB PO SCH ×2 (10:34→21:25)
[2022-03-10] MEDS: SENNOSIDES/DOCUSATE SODIUM 8.6/50 MG TAB PO SCH (10:35)
[2022-03-10] MEDS: PANTOPRAZOLE 40 MG TAB PO SCH (10:36)
--- NOTE | 2022-03-10 12:03 | Progress Note ---
Assessment and Plan Assessment and plan: This is a 66-year-old female with known past medical history of ESRD on HD (T,R,Sat), HTN, CVA, [place], CAD s/p stent placement, CHF, PPM, history of PE, Atrial fibrillation on Eliquis at home, DM, COPD, HLD, bipolar disorder, and nicotine dependence admitted for CHF exacerbation and AFIB with RVR s/p Cardizem gtt. Hospital Course to Date: 03/10: Off cardizem gtt off this am, Apacing on the monitor HR in the 70s, VSS. Patient tolerated HD overnight, 2L removed. Patient is stable on RA this am, in no acute distress. Patient home medications reconciled. Cardiology consulted. 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 with same complaints - Presented with CP, found in afib with RVR s/p Cardizem gtt - Patient is A-pacing on the monitor, HR in the 70s - BNP 99083, most likely due to fluid overload- HD per Nephro - On PO Amio, BB, and Statin - Home antihypertensive resumed - Cardiology consulted - Continue blood pressure monitor per protocol - Maintain SBP less than 160 - Home Eliquis resumed - Strict I's/O- monitor urine output every shift - Daily weight #End Stage Renal Disease(ESRD) on HD - HD days (T,R,Sa) - Nephrology on consult, appreciated recommendation - Tolerated HD overnight, 2L removed - Continue HD per Nephro - Strict intake and output - Avoid nephrotoxic medications; Renally dose medications - Monitor and replace electrolytes as needed #History of PE - Home Eliquis resumed #Type 2 Diabetes Mellitus - Consistent carbohydrate diet - Accu-Chek and SSI ACHS - Avoid Hypoglycemia #Tobacco Dependence - Smoking Cessation provided. Patient verbalized understanding of the info provided - Patient denied any urges at this time, offer Nicotine patch if needed #GI/DVT Prophylaxis - PPI- Protonix - Home Eliquis resumed - SCD to bilateral lower extremities while in bed #Advance Care Planning - Disease education, care plan, diagnoses, and prognosis discussed with patient. Smoking cessation and medication compliance was also discussed. Patient acknow ledges understanding of educations provided and agreement with current care plan. The high probability of a clinically significant, sudden or life threatening deterioration of the [multiple] system(s) required my full and direct attention, intervention and personal management. The aggregate critical care time was [60] minutes. This time is in addition to time spent performing reported procedures but includes the following: [x] Data Review and interpretation [x] Patient assessment and monitoring of vital signs [x] Documentation [x] Medication orders and management Disposition Plan: ICU Total Time Spent with Patient (Minutes): 60 History Interval history: Patient seen and examined at the beside. Fully AAO, on RA, denied any pain nor any discomfort at this time. Patient is off cardizem gtt this am, Apaced at 70 on the monitor, VSS. Hospitalist Physical - Constitutional Vitals: Temp Pulse Resp BP Pulse Ox 98.3 F 70 19 126/71 100 03/10/22 11:36 03/10/22 11:00 03/10/22 11:00 03/10/22 11:00 03/10/22 11:00 General appearance: Present: no acute distress, cachectic - EENT Eyes: Present: PERRL, EOM intact ENT: hearing intact - Neck Neck: Present: normal ROM - Respiratory Respiratory effort: normal Respiratory: bilateral: diminished - Cardiovascular Rhythm: regular (A-Paced) Heart Sounds: Present: S1 & S2 - Extremities Extremities: no ischemia, pulses intact, pulses symmetrical Peripheral Pulses: within normal limits - Abdominal General gastrointestinal: soft, non-distended, normal bowel sounds - Integumentary Integumentary: Present: clear, warm, dry - Psychiatric Psychiatric: appropriate mood/affect, cooperative - Neurologic Neurologic: CNII-XII intact, moves all extremities - Allied Health Allied health notes reviewed: nursing HEART Score - HEART Score Troponin: Troponin T < 0.010 ng/mL (0.00-0.029) 03/09/22 20:22 Results - Labs CBC & Chem 7: 03/09/22 11:19 03/10/22 04:16 Labs: Laboratory Last Values WBC 8.6 K/mm3 (4.5-11.0) 03/09/22 11:19 RBC 3.77 M/mm3 (3.65-5.03) 03/09/22 11:19 Hgb 11.8 gm/dl (10.1-14.3) 03/09/22 11:19 Hct 35.9 % (30.3-42.9) 03/09/22 11:19 MCV 95 fl (79-97) 03/09/22 11:19 MCH 31 pg (28-32) 03/09/22 11:19 MCHC 33 % (30-34) 03/09/22 11:19 RDW 18.0 % (13.2-15.2) H 03/09/22 11:19 Plt Count 131 K/mm3 (140-440) L 03/09/22 11:19 Lymph % (Auto) 16.8 % (13.4-35.0) 03/09/22 11:19 [place] % (Auto) 7.7 % (0.0-7.3) H 03/09/22 11:19 Eos % (Auto) 3.4 % (0.0-4.3) 03/09/22 11:19 Baso % (Auto) 0.8 % (0.0-1.8) 03/09/22 11:19 Lymph # (Auto) 1.4 K/mm3 (1.2-5.4) 03/09/22 11:19 [place] # (Auto) 0.7 K/mm3 (0.0-0.8) 03/09/22 11:19 Eos # (Auto) 0.3 K/mm3 (0.0-0.4) 03/09/22 11:19 Baso # (Auto) 0.1 K/mm3 (0.0-0.1) 03/09/22 11:19 Seg Neutrophils % 71.3 % (40.0-70.0) H 03/09/22 11:19 Seg Neutrophils # 6.1 K/mm3 (1.8-7.7) 03/09/22 11:19 Sodium 138 mmol/L (137-145) 03/10/22 04:16 Potassium 4.7 mmol/L (3.6-5.0) 03/10/22 04:16 Chloride 98.8 mmol/L (98-107) 03/10/22 04:16 Carbon Dioxide 27 mmol/L (22-30) 03/10/22 04:16 Anion Gap 17 mmol/L 03/10/22 04:16 BUN 17 mg/dL (7-17) 03/10/22 04:16 Creatinine 2.5 mg/dL (0.6-1.2) H 03/10/22 04:16 Estimated GFR 23 ml/min 03/10/22 04:16 BUN/Creatinine Ratio 7 % 03/10/22 04:16 Glucose 153 mg/dL (65-100) H 03/10/22 04:16 POC Glucose 183 mg/dL (70-105) H 03/09/22 23:50 Calcium 9.7 mg/dL (8.4-10.2) 03/10/22 04:16 Phosphorus 4.80 mg/dL (2.5-4.5) H 03/09/22 11:19 Magnesium 2.00 mg/dL (1.7-2.3) 03/09/22 11:19 Total Bilirubin 0.50 mg/dL (0.1-1.2) 03/09/22 11:19 AST 13 units/L (5-40) 03/09/22 11:19 ALT 7 units/L (7-56) 03/09/22 11:19 Alkaline Phosphatase 73 units/L (35-129) 03/09/22 11:19 Troponin T < 0.010 ng/mL (0.00-0.029) 03/09/22 20:22 NT-Pro-B Natriuret Pep 96791 pg/mL (0-900) H 03/09/22 11:19 Total Protein 6.1 g/dL (6.3-8.2) L 03/09/22 11:19 Albumin 4.3 g/dL (3.9-5) 03/09/22 11:19 Albumin/Globulin Ratio 2.4 % 03/09/22 11:19 Active Medications - Current Medications Current Medications: Generic Name Dose Route Start Last Admin Trade Name Freq PRN Reason Stop Dose Admin Acetaminophen 650 mg 03/09/22 12:42 Acetaminophen 325 Mg Tab PO Q6H PRN Pain MILD(1-3)/Fever >100.5/SILVA Albuterol 2.5 mg 03/09/22 12:42 Albuterol 2.5 Mg/3 Ml Nebu IH Q3HRT PRN Shortness Of Breath Amiodarone HCl 200 mg 03/09/22 13:00 03/10/22 10:34 Amiodarone 200 Mg Tab PO 200 mg BID [facility] Administration Apixaban 5 mg 03/09/22 22:00 03/10/22 10:33 Apixaban 5 Mg Tab PO 5 mg Q12HR [facility] Administration Aspirin 81 mg 03/09/22 12:00 03/10/22 10:32 Aspirin Ec 81 Mg Tab PO 81 mg QDAY [facility] Administration Dextrose 50 ml 03/10/22 08:12 Dextrose 50% In Water (25gm) 50 Ml Syringe IV Q30MIN PRN Hypoglycemia Protocol Gabapentin 100 mg 03/09/22 22:00 03/10/22 10:33 Gabapentin 100 Mg Cap PO 100 mg BID [facility] Administration Heparin Sodium (Porcine) 5,000 unit 03/09/22 13:17 Heparin 10,000 Unit/1 Ml Vial IV KARLENE PRN hemodialysis Hydralazine HCl 50 mg 03/10/22 10:00 03/10/22 10:34 Hydralazine 25 Mg Tab PO 50 mg Q8HR [facility] Administration Hydromorphone HCl 0.5 mg 03/09/22 12:42 03/09/22 21:42 Hydromorphone 1 Mg/1 Ml Inj IV 0.5 mg Q13H PRN Administration Pain , Severe (7-10) Diltiazem HCl 100 mg in 100 mls @ 5 mls/hr 03/09/22 13:00 03/10/22 08:05 Cardizem/D5w 100mg/100ml IV 0 mg/hr TITR [facility] 0 mls/hr Titration Protocol 5 MG/HR Sodium Chloride 100 mls @ 999 mls/hr 03/09/22 13:17 Nacl 0.9% IV [facility] PRN Hypotension Insulin Human Lispro 0 unit 03/10/22 11:30 Insulin Lispro 100 Unit/Ml SUB-Q ACHS [facility] Protocol Isosorbide Mononitrate 60 mg 03/10/22 10:00 03/10/22 10:35 Isosorbide Mononitrate Er 60 Mg Tab PO 60 mg QDAY [facility] Administration Losartan Potassium 50 mg 03/09/22 12:00 03/10/22 10:33 Losartan 50 Mg Tab PO 50 mg QDAY [facility] Administration Metoprolol Tartrate 100 mg 03/09/22 22:00 03/10/22 10:34 Metoprolol Tartrate 100 Mg Tab PO 100 mg BID [facility] Administration Oxycodone/Acetaminophen 1 tab 03/09/22 12:42 03/10/22 01:35 Oxycodone /Acetaminophen 5-325mg Tab PO 1 tab Q6H PRN Administration Pain, Moderate (4-6) Pantoprazole Sodium 40 mg 03/10/22 10:00 03/10/22 10:36 Pantoprazole 40 Mg Tab PO 40 mg QDAC [facility] Administration Senna/Docusate Sodium 1 tab 03/10/22 10:00 03/10/22 10:35 Sennosides/Docusate Sodium 8.6/50 Mg Tab PO 1 tab DAILY [facility] Administration Sodium Chloride 10 ml 03/09/22 22:00 03/10/22 10:36 Sodium Chloride 0.9% 10 Ml Flush Syringe IV 10 ml BID [facility] Administration Sodium Chloride 10 ml 03/09/22 12:42 Sodium Chloride 0.9% 10 Ml Flush Syringe IV PRN PRN LINE FLUSH
--- NOTE | 2022-03-10 12:41 | Progress Note ---
Assessment and Plan ESRD - Next HD Friday HTN - F/u on meds CP - W/u & Mx per Cardiology Subjective Date of service: 03/10/22 Interval history: Feeling better Objective - Vital Signs Vital signs: Vital Signs - 12hr 03/10/22 03/10/22 03/10/22 00:45 01:00 01:10 Temperature Pulse Rate 103 H 102 H 113 H Respiratory 20 27 H Rate Blood Pressure 212/118 195/118 195/118 O2 Sat by Pulse 97 Oximetry O2 Sat by Pulse Oximetry [ Anterior Bilateral Throughout] 03/10/22 03/10/22 03/10/22 01:20 01:25 01:30 Temperature 97.9 F Pulse Rate 116 H 102 H 117 H Respiratory 18 22 20 Rate Blood Pressure 191/110 195/118 191/110 O2 Sat by Pulse 79 L 100 Oximetry O2 Sat by Pulse 95 Oximetry [ Anterior Bilateral Throughout] 03/10/22 03/10/22 03/10/22 01:32 01:40 01:50 Temperature Pulse Rate 108 H 101 H 105 H Respiratory 20 22 Rate Blood Pressure 166/99 166/99 168/117 O2 Sat by Pulse 95 100 Oximetry O2 Sat by Pulse Oximetry [ Anterior Bilateral Throughout] 03/10/22 03/10/22 03/10/22 02:00 02:10 02:20 Temperature Pulse Rate 110 H 104 H 75 Respiratory 16 18 17 Rate Blood Pressure 165/104 165/104 156/102 O2 Sat by Pulse 95 99 97 Oximetry O2 Sat by Pulse Oximetry [ Anterior Bilateral Throughout] 03/10/22 03/10/22 03/10/22 02:30 02:40 02:50 Temperature Pulse Rate 103 H 96 H 70 Respiratory 21 18 18 Rate Blood Pressure 159/106 159/106 157/79 O2 Sat by Pulse 98 97 97 Oximetry O2 Sat by Pulse Oximetry [ Anterior Bilateral Throughout] 03/10/22 03/10/22 03/10/22 03:00 03:10 03:20 Temperature Pulse Rate 70 70 70 Respiratory 19 17 18 Rate Blood Pressure 138/76 138/76 129/75 O2 Sat by Pulse 95 97 98 Oximetry O2 Sat by Pulse Oximetry [ Anterior Bilateral Throughout] 03/10/22 03/10/22 03/10/22 03:30 03:40 03:50 Temperature Pulse Rate 70 71 70 Respiratory 17 16 15 Rate Blood Pressure 123/72 123/72 118/74 O2 Sat by Pulse 99 97 97 Oximetry O2 Sat by Pulse Oximetry [ Anterior Bilateral Throughout] 03/10/22 03/10/22 03/10/22 04:00 04:10 04:20 Temperature 98.2 F Pulse Rate 70 70 71 Respiratory 17 15 24 Rate Blood Pressure 118/71 118/71 119/72 O2 Sat by Pulse 97 97 98 Oximetry O2 Sat by Pulse Oximetry [ Anterior Bilateral Throughout] 03/10/22 03/10/22 03/10/22 04:30 04:40 04:50 Temperature Pulse Rate 70 70 70 Respiratory 19 19 17 Rate Blood Pressure 109/59 109/59 112/57 O2 Sat by Pulse 100 100 100 Oximetry O2 Sat by Pulse Oximetry [ Anterior Bilateral Throughout] 03/10/22 03/10/22 03/10/22 05:00 05:10 05:20 Temperature Pulse Rate 70 70 70 Respiratory 19 22 20 Rate Blood Pressure 115/72 115/72 122/74 O2 Sat by Pulse 100 90 100 Oximetry O2 Sat by Pulse Oximetry [ Anterior Bilateral Throughout] 03/10/22 03/10/22 03/10/22 05:30 05:40 05:50 Temperature Pulse Rate 70 70 71 Respiratory 21 22 16 Rate Blood Pressure 127/78 127/78 134/77 O2 Sat by Pulse 99 96 97 Oximetry O2 Sat by Pulse Oximetry [ Anterior Bilateral Throughout] 03/10/22 03/10/22 03/10/22 06:00 06:10 06:20 Temperature Pulse Rate 70 77 70 Respiratory 22 13 20 Rate Blood Pressure 122/76 122/76 124/73 O2 Sat by Pulse 96 96 96 Oximetry O2 Sat by Pulse Oximetry [ Anterior Bilateral Throughout] 03/10/22 03/10/22 03/10/22 06:30 06:40 06:50 Temperature Pulse Rate 70 70 70 Respiratory 17 18 17 Rate Blood Pressure 119/74 119/74 125/74 O2 Sat by Pulse 98 97 98 Oximetry O2 Sat by Pulse Oximetry [ Anterior Bilateral Throughout] 03/10/22 03/10/22 03/10/22 07:00 07:10 07:13 Temperature 99.0 F Pulse Rate 70 70 Respiratory 20 18 Rate Blood Pressure 118/68 118/68 O2 Sat by Pulse 99 100 Oximetry O2 Sat by Pulse Oximetry [ Anterior Bilateral Throughout] 03/10/22 03/10/22 03/10/22 07:20 07:30 07:40 Temperature Pulse Rate 70 70 70 Respiratory 18 21 22 Rate Blood Pressure 120/71 120/71 123/71 O2 Sat by Pulse 100 99 99 Oximetry O2 Sat by Pulse Oximetry [ Anterior Bilateral Throughout] 03/10/22 03/10/22 03/10/22 07:50 08:00 08:10 Temperature Pulse Rate 70 70 70 Respiratory 20 21 18 Rate Blood Pressure 116/74 124/78 124/78 O2 Sat by Pulse 99 95 96 Oximetry O2 Sat by Pulse Oximetry [ Anterior Bilateral Throughout] 03/10/22 03/10/22 03/10/22 08:15 08:20 08:30 Temperature Pulse Rate 70 70 Respiratory 20 19 Rate Blood Pressure 118/70 126/74 O2 Sat by Pulse 98 83 L 99 Oximetry O2 Sat by Pulse Oximetry [ Anterior Bilateral Throughout] 03/10/22 03/10/22 03/10/22 08:40 08:50 09:00 Temperature Pulse Rate 70 71 70 Respiratory 20 17 14 Rate Blood Pressure 126/74 125/74 123/75 O2 Sat by Pulse 98 100 100 Oximetry O2 Sat by Pulse Oximetry [ Anterior Bilateral Throughout] 03/10/22 03/10/22 03/10/22 09:10 09:20 09:30 Temperature Pulse Rate 70 70 70 Respiratory 15 21 17 Rate Blood Pressure 123/75 120/70 129/72 O2 Sat by Pulse 98 100 93 Oximetry O2 Sat by Pulse Oximetry [ Anterior Bilateral Throughout] 03/10/22 03/10/22 03/10/22 09:40 09:50 10:00 Temperature Pulse Rate 70 70 70 Respiratory 24 23 16 Rate Blood Pressure 129/72 123/73 129/74 O2 Sat by Pulse 100 78 L 84 Oximetry O2 Sat by Pulse Oximetry [ Anterior Bilateral Throughout] 03/10/22 03/10/22 03/10/22 10:10 10:20 10:30 Temperature Pulse Rate 71 70 70 Respiratory 17 20 21 Rate Blood Pressure 129/74 126/67 129/73 O2 Sat by Pulse 95 99 99 Oximetry O2 Sat by Pulse Oximetry [ Anterior Bilateral Throughout] 03/10/22 03/10/22 03/10/22 10:33 10:34 10:35 Temperature Pulse Rate 70 70 70 Respiratory Rate Blood Pressure 129/73 129/73 129/73 O2 Sat by Pulse Oximetry O2 Sat by Pulse Oximetry [ Anterior Bilateral Throughout] 03/10/22 03/10/22 03/10/22 10:40 10:50 11:00 Temperature Pulse Rate 70 70 70 Respiratory 21 18 19 Rate Blood Pressure 129/73 131/77 126/71 O2 Sat by Pulse 100 100 100 Oximetry O2 Sat by Pulse Oximetry [ Anterior Bilateral Throughout] 03/10/22 11:36 Temperature 98.3 F Pulse Rate Respiratory Rate Blood Pressure O2 Sat by Pulse Oximetry O2 Sat by Pulse Oximetry [ Anterior Bilateral Throughout] - General Appearance General appearance: other (Awake & alert) EENT: PERRL Neck: no JVD, supple Respiratory: Present: Other (Good air entry) Cardiology: regular, S1S2, other (No edema) Gastrointestinal: normal Neurologic: alert and oriented x3 - Lab 03/09/22 11:19 03/10/22 04:16 Most recent lab results Calcium 9.7 mg/dL (8.4-10.2) 03/10/22 04:16 Phosphorus 4.80 mg/dL (2.5-4.5) H 03/09/22 11:19 Magnesium 2.00 mg/dL (1.7-2.3) 03/09/22 11:19 Medications & Allergies - Medications Allergies/Adverse Reactions: Allergies apple Adverse Reaction (Verified 02/27/22 09:44) Hives yellow and green apples. can eat red. aspirin Adverse Reaction (Verified 02/27/22 09:44) Unknown shell fish Allergy (Uncoded 02/27/22 09:44) Swelling allergic to seafood except blue crab Home Medications: Home Medications Medication Instructions Recorded Confirmed Last Taken Type Hydralazine HCl 50 mg PO TID 02/06/22 03/10/22 03/01/22 22:00 History cloNIDine [Catapres] 0.1 mg PO Q8HR 02/06/22 03/10/22 03/02/22 10:00 History Apixaban [Eliquis] 5 mg PO BID #60 tab 02/28/22 03/10/22 03/02/22 10:00 Rx Gabapentin 100 mg PO BID 03/02/22 03/10/22 Unknown History Losartan [Cozaar] 50 mg PO QDAY 03/02/22 03/10/22 03/01/22 10:00 History Nitroglycerin [Nitro-Bid] 0.1 mg TRANSDERMA Q6HR PRN 03/02/22 03/10/22 Unknown History Pantoprazole [Protonix TAB] 40 mg PO QDAY 03/02/22 03/10/22 03/02/22 10:00 History Diltiazem HCl [Cardizem] 240 mg PO DAILY 03/10/22 03/10/22 Unknown History Isosorbide Mononitrate [Isosorbide 60 mg PO DAILY 03/10/22 03/10/22 Unknown History Mononitrate ER] Sennosides/Docusate Sodium [Senna 1 cap PO DAILY 03/10/22 03/10/22 Unknown History Plus 8.6-50 mg Softgel] carvediloL [Coreg] 25 mg PO BID 03/10/22 03/10/22 Unknown History methIMAzole [Methimazole] 10 mg PO TID 03/10/22 03/10/22 Unknown History Active Medications: Generic Name Dose Route Start Last Admin Trade Name Freq PRN Reason Stop Dose Admin Acetaminophen 650 mg 03/09/22 12:42 Acetaminophen 325 Mg Tab PO Q6H PRN Pain MILD(1-3)/Fever >100.5/SILVA Albuterol 2.5 mg 03/09/22 12:42 Albuterol 2.5 Mg/3 Ml Nebu IH Q3HRT PRN Shortness Of Breath Amiodarone HCl 200 mg 03/09/22 13:00 03/10/22 10:34 Amiodarone 200 Mg Tab PO 200 mg BID CHRISTEL Administration Apixaban 5 mg 03/09/22 22:00 03/10/22 10:33 Apixaban 5 Mg Tab PO 5 mg Q12HR CHRISTEL Administration Aspirin 81 mg 03/09/22 12:00 03/10/22 10:32 Aspirin Ec 81 Mg Tab PO 81 mg QDAY CHRISTEL Administration Dextrose 50 ml 03/10/22 08:12 Dextrose 50% In Water (25gm) 50 Ml Syringe IV Q30MIN PRN Hypoglycemia Protocol Gabapentin 100 mg 03/09/22 22:00 03/10/22 10:33 Gabapentin 100 Mg Cap PO 100 mg BID CHRISTEL Administration Heparin Sodium (Porcine) 5,000 unit 03/09/22 13:17 Heparin 10,000 Unit/1 Ml Vial IV KARLENE PRN hemodialysis Hydralazine HCl 50 mg 03/10/22 10:00 03/10/22 10:34 Hydralazine 25 Mg Tab PO 50 mg Q8HR CHRISTEL Administration Hydromorphone HCl 0.5 mg 03/09/22 12:42 03/09/22 21:42 Hydromorphone 1 Mg/1 Ml Inj IV 0.5 mg Q13H PRN Administration Pain , Severe (7-10) Diltiazem HCl 100 mg in 100 mls @ 5 mls/hr 03/09/22 13:00 03/10/22 08:05 Cardizem/D5w 100mg/100ml IV 0 mg/hr TITR CHRISTEL 0 mls/hr Titration Protocol 5 MG/HR Sodium Chloride 100 mls @ 999 mls/hr 03/09/22 13:17 Nacl 0.9% IV KARLENE PRN Hypotension Insulin Human Lispro 0 unit 03/10/22 11:30 Insulin Lispro 100 Unit/Ml SUB-Q ACHS CHRISTEL Protocol Isosorbide Mononitrate 60 mg 03/10/22 10:00 03/10/22 10:35 Isosorbide Mononitrate Er 60 Mg Tab PO 60 mg QDAY CHRISTEL Administration Losartan Potassium 50 mg 03/09/22 12:00 03/10/22 10:33 Losartan 50 Mg Tab PO 50 mg QDAY CHRISTEL Administration Metoprolol Tartrate 100 mg 03/09/22 22:00 03/10/22 10:34 Metoprolol Tartrate 100 Mg Tab PO 100 mg BID CHRISTEL Administration Oxycodone/Acetaminophen 1 tab 03/09/22 12:42 03/10/22 01:35 Oxycodone /Acetaminophen 5-325mg Tab PO 1 tab Q6H PRN Administration Pain, Moderate (4-6) Pantoprazole Sodium 40 mg 03/10/22 10:00 03/10/22 10:36 Pantoprazole 40 Mg Tab PO 40 mg QDAC CHRISTEL Administration Senna/Docusate Sodium 1 tab 03/10/22 10:00 03/10/22 10:35 Sennosides/Docusate Sodium 8.6/50 Mg Tab PO 1 tab DAILY CHRISTEL Administration Sodium Chloride 10 ml 03/09/22 22:00 03/10/22 10:36 Sodium Chloride 0.9% 10 Ml Flush Syringe IV 10 ml BID CHRISTEL Administration Sodium Chloride 10 ml 03/09/22 12:42 Sodium Chloride 0.9% 10 Ml Flush Syringe IV PRN PRN LINE FLUSH
[2022-03-10] MEDS: INSULIN LISPRO 100 UNIT/ML SUB-Q SCH ×3 (12:53→22:00)
--- NOTE | 2022-03-10 13:23 | Consultation ---
History of Present Illness Consult date: 03/10/22 Requesting physician: LITA WOODSON Reason for consult: other (Atrial fibrillation with RVR) History of present illness: PULMONARY/CCM CONSULT NOTE (Full dictation # [id number]) Please see dictated notes for full details Past History Past Medical History: acute NE, atrial fib, COPD, ESRD, hypertension, hyperlipidemia, stroke, other (See HPI) Past Surgical History: total knee replacement, Other ((stent placement x 2 in 2014, knee surgery 11/2017, right upper extremity fistula)) Social history: . denies: smoking, alcohol abuse, prescription drug abuse Family history: diabetes, hypertension Medications and Allergies Allergies Allergy/AdvReac Type Severity Reaction Status Date / Time apple AdvReac Hives Verified 02/27/22 09:44 aspirin AdvReac Unknown Verified 02/27/22 09:44 shell fish Allergy Swelling Uncoded 02/27/22 09:44 Home Medications Medication Instructions Recorded Confirmed Last Taken Type Hydralazine HCl 50 mg PO TID 02/06/22 03/10/22 03/01/22 22:00 History cloNIDine [Catapres] 0.1 mg PO Q8HR 02/06/22 03/10/22 03/02/22 10:00 History Apixaban [Eliquis] 5 mg PO BID #60 tab 02/28/22 03/10/22 03/02/22 10:00 Rx Gabapentin 100 mg PO BID 03/02/22 03/10/22 Unknown History Losartan [Cozaar] 50 mg PO QDAY 03/02/22 03/10/22 03/01/22 10:00 History Nitroglycerin [Nitro-Bid] 0.1 mg TRANSDERMA Q6HR PRN 03/02/22 03/10/22 Unknown History Pantoprazole [Protonix TAB] 40 mg PO QDAY 03/02/22 03/10/22 03/02/22 10:00 History Diltiazem HCl [Cardizem] 240 mg PO DAILY 03/10/22 03/10/22 Unknown History Isosorbide Mononitrate [Isosorbide 60 mg PO DAILY 03/10/22 03/10/22 Unknown History Mononitrate ER] Sennosides/Docusate Sodium [Senna 1 cap PO DAILY 03/10/22 03/10/22 Unknown History Plus 8.6-50 mg Softgel] carvediloL [Coreg] 25 mg PO BID 03/10/22 03/10/22 Unknown History methIMAzole [Methimazole] 10 mg PO TID 03/10/22 03/10/22 Unknown History Active Meds: Active Medications Acetaminophen (Acetaminophen 325 Mg Tab) 650 mg PO Q6H PRN PRN Reason: Pain MILD(1-3)/Fever >100.5/SILVA Albuterol (Albuterol 2.5 Mg/3 Ml Nebu) 2.5 mg IH Q3HRT PRN PRN Reason: Shortness Of Breath Amiodarone HCl (Amiodarone 200 Mg Tab) 200 mg PO BID [facility] Last Admin: 03/10/22 10:34 Dose: 200 mg Apixaban (Apixaban 5 Mg Tab) 5 mg PO Q12HR [facility] Last Admin: 03/10/22 10:33 Dose: 5 mg Aspirin (Aspirin Ec 81 Mg Tab) 81 mg PO QDAY [facility] Last Admin: 03/10/22 10:32 Dose: 81 mg Dextrose (Dextrose 50% In Water (25gm) 50 Ml Syringe) 50 ml IV Q30MIN PRN; Protocol PRN Reason: Hypoglycemia Gabapentin (Gabapentin 100 Mg Cap) 100 mg PO BID [facility] Last Admin: 03/10/22 10:33 Dose: 100 mg Heparin Sodium (Porcine) (Heparin 10,000 Unit/1 Ml Vial) 5,000 unit IV KARLENE PRN PRN Reason: hemodialysis Hydralazine HCl (Hydralazine 25 Mg Tab) 50 mg PO Q8HR [facility] Last Admin: 03/10/22 10:34 Dose: 50 mg Hydromorphone HCl (Hydromorphone 1 Mg/1 Ml Inj) 0.5 mg IV Q13H PRN PRN Reason: Pain , Severe (7-10) Last Admin: 03/09/22 21:42 Dose: 0.5 mg Diltiazem HCl (Cardizem/D5w 100mg/100ml) 100 mg in 100 mls @ 5 mls/hr IV TITR [facility]; Protocol Last Titration: 03/10/22 08:05 Dose: 0 mg/hr, 0 mls/hr Sodium Chloride (Nacl 0.9%) 100 mls @ 999 mls/hr IV KARLENE PRN PRN Reason: Hypotension Insulin Human Lispro (Insulin Lispro 100 Unit/Ml) 0 unit SUB-Q ACHS [facility]; Protocol Last Admin: 03/10/22 12:53 Dose: Not Given Isosorbide Mononitrate (Isosorbide Mononitrate Er 60 Mg Tab) 60 mg PO QDAY [facility] Last Admin: 03/10/22 10:35 Dose: 60 mg Losartan Potassium (Losartan 50 Mg Tab) 50 mg PO QDAY [facility] Last Admin: 03/10/22 10:33 Dose: 50 mg Metoprolol Tartrate (Metoprolol Tartrate 100 Mg Tab) 100 mg PO BID [facility] Last Admin: 03/10/22 10:34 Dose: 100 mg Oxycodone/Acetaminophen (Oxycodone /Acetaminophen 5-325mg Tab) 1 tab PO Q6H PRN PRN Reason: Pain, Moderate (4-6) Last Admin: 03/10/22 01:35 Dose: 1 tab Pantoprazole Sodium (Pantoprazole 40 Mg Tab) 40 mg PO QDAC [facility] Last Admin: 03/10/22 10:36 Dose: 40 mg Senna/Docusate Sodium (Sennosides/Docusate Sodium 8.6/50 Mg Tab) 1 tab PO DAILY [facility] Last Admin: 03/10/22 10:35 Dose: 1 tab Sodium Chloride (Sodium Chloride 0.9% 10 Ml Flush Syringe) 10 ml IV BID [facility] Last Admin: 03/10/22 10:36 Dose: 10 ml Sodium Chloride (Sodium Chloride 0.9% 10 Ml Flush Syringe) 10 ml IV PRN PRN PRN Reason: LINE FLUSH Physical Examination Vital signs: Vital Signs Temp Pulse Resp BP Pulse Ox 98.3 F 92 H 18 184/106 99 03/09/22 08:23 03/09/22 08:23 03/09/22 08:23 03/09/22 08:23 03/09/22 08:23 Results - Laboratory Findings CBC and BMP: 03/09/22 11:19 03/10/22 04:16 Abnormal lab findings: Abnormal Labs 03/09/22 03/09/22 03/09/22 11:19 11:19 11:19 RDW 18.0 H Plt Count 131 L Dupage % (Auto) 7.7 H Seg Neutrophils % 71.3 H BUN 30 H Creatinine 4.1 H Glucose POC Glucose Phosphorus 4.80 H NT-Pro-B Natriuret Pep 31932 H Total Protein 6.1 L 03/09/22 03/10/22 03/10/22 23:50 04:16 11:03 RDW Plt Count Dupage % (Auto) Seg Neutrophils % BUN Creatinine 2.5 H Glucose 153 H POC Glucose 183 H 113 H Phosphorus NT-Pro-B Natriuret Pep Total Protein
[2022-03-10] MEDS: HYDROmorphone 1 MG/1 ML INJ IV PRN ×2 (15:10→21:25)
[2022-03-11] MEDS: hydrALAZINE 25 MG TAB PO SCH ×3 (05:32→21:21)
[2022-03-11 05:34] LABS: Calcium 9.6 mg/dL (8.4-10.2)
--- NOTE | 2022-03-11 05:55 | Consultation ---
DATE OF CONSULTATION: 03/09/2022 PULMONARY CRITICAL CARE CONSULT NOTE CONSULTING PHYSICIAN: Dr. Koehler. REASON FOR CONSULTATION: Atrial fibrillation with rapid ventricular response. CHIEF COMPLAINT AND HISTORY OF PRESENT ILLNESS: As follows. The patient is a 66-year-old female with past medical history significant amongst other things for a diagnosis of end-stage renal disease, on dialysis, but also cardiomyopathy, status post implanted loop cardiac device, who came into the Emergency Room complaining of her chest hurting and palpitations. She admits to having prior episodes of atrial fibrillation with rapid ventricular response. She states she has been compliant with her medications and there has been no recent change in her medication dose. She does have a 10+ pack year tobacco smoking history, is trying to smoke, but still smokes 1-2 cigarettes a day. Yesterday, she experienced a sudden onset of chest pain. It was present when she woke up from sleep, it was 8/10, it was constant, it was associated with shortness of breath, it was not worsened with exertion. EMS were called. On arrival, they found the patient to be in atrial fibrillation with a rapid ventricular response, but also evidence of a CHF exacerbation with pulmonary edema. She was evaluated further in the Emergency Room. Nephrology was consulted for urgent dialysis. We are asked to assist with management. When I stopped by to see her, she was still a little bit short of breath. The chest pain was better. Palpitations were persistent. She denied nausea, vomiting, or overt aspiration. She denied fevers or chills. She denies any open wounds or sores on her body. Denied any new-onset rash. Denies any dysuria or any suggestion of a urinary tract infection. This really is as much of the history of presentation as I have. PAST MEDICAL HISTORY: Coronary artery disease, atrial fibrillation, chronic obstructive lung disease, end-stage renal disease, on dialysis, hypertension, hyperlipidemia, a prior cerebrovascular accident. PAST SURGICAL HISTORY: She has had a total knee replacement. She has had a coronary artery stenting in 2015 and she has a right upper extremity AV fistula. MEDICATIONS: She was on at the time I stopped by to see her according to the medication administration record included the following: She has been on Tylenol 650 mg p.o. q. 6 hours p.r.n. mild pain or fevers, albuterol 2.5 mg nebulized q. 3 hours p.r.n. shortness of breath, amiodarone 200 mg p.o. b.i.d., Eliquis 5 mg p.o. q. 12 hours, aspirin 81 mg p.o. daily, Cardizem drip at 5 mg per hour, Neurontin 100 mg p.o. b.i.d., Dilaudid 0.5 mg IV q. 13 hours p.r.n. severe pain, hydralazine 50 mg p.o. q. 8 hours, insulin via sliding scale, Imdur 60 mg p.o. daily, Cozaar 50 mg p.o. daily, metoprolol 100 mg p.o. b.i.d., Percocet 5/325 one tablet p.o. q. 6 hours p.r.n. moderate pain, Protonix 40 mg p.o. daily, senna/docusate 1 tablet p.o. daily. ALLERGIES: ASPIRIN AND SHELLFISH. Nature of this allergy is unknown. DIET: Thin lady, denies acute weight loss or gain in the preceding few weeks to months. FAMILY AND SOCIAL HISTORY: Lives in the community. She is . She has a 10+ pack year tobacco smoking history, continues to smoke. Denies alcohol or illicit drug use or abuse. FAMILY HISTORY: Otherwise significant for diabetes and hypertension. REVIEW OF SYSTEMS: No overt loss of consciousness. No new-onset seizures. No new onset focal weakness. Denies gross hematochezia or melena. Denied gross hematuria or dysuria. She had the palpitations. She denied polydipsia or polyuria. She denied any new-onset seizures. She denies heat or cold intolerance. Complete 13-system review of system was obtained. Pertinent positives and/or negatives as in body of history above, otherwise they are noncontributory. PHYSICAL EXAMINATION: VITAL SIGNS: On presentation in the Emergency Room, she was afebrile, temperature 98.3 degrees Fahrenheit, pulse of 92, respiratory rate of 18, blood pressure 184/106, O2 sats were 99%, inspired oxygen concentration at that time was not recorded. When I stopped by to see her, O2 sats were 98% on 2 liters nasal cannula. GENERAL: She is an elderly, thin lady. Normocephalic, atraumatic. Talking with mildly increased respiratory effort at rest. HEAD, EYES, EARS, NOSE AND THROAT: Anicteric. No conjunctival erythema. Oropharynx was moist. NECK: No gross jugular venous distention, no thyromegaly. Grossly, there were no palpable lymph nodes in the supraclavicular or submandibular lymph node chains. LUNGS: Auscultation of both lung guillen significant for bilateral rales, no active wheezing. HEART: Sounds 1 and 2 are heard. Irregularly irregular at the time of my evaluation without overt rubs or murmurs. ABDOMEN: Soft, flat, bowel sounds are positive, nontender, no palpable hepatosplenomegaly. EXTREMITIES: Without overt digital clubbing or cyanosis, no pedal edema. Pedal pulses were about 2+ bilaterally. NEUROLOGIC: Pupils are equal, round, about 4 mm, reactive to light. Extraocular muscle movements were intact. She moves all 4 extremities spontaneously. SKIN: Normal turgor in the areas I examined without overt cellulitis or rash. She has an implanted cardiac device in the left upper anterior chest wall and I believe a Vas-Cath in the right upper anterior chest wall. Please see the wound care nurse's notes and registered nurse's notes for full description of her skin. PSYCHIATRIC: Mood was normal. Affect was appropriate. She had intact judgment and insight. LABORATORY DATA: From my review are as follows: Admission white cell count 8600, hemoglobin 11.8, hematocrit 35.9, platelet count 131. No manual differential. Serum sodium 143, potassium 4.0, chloride 102, serum bicarbonate 26, BUN 30, creatinine 4.1, glucose was 81. Liver function tests within normal limits. BNP was elevated at 17,845. No microbiology studies for my review. Chest x-ray does show gross cardiomegaly, implanted cardiac device, right Vas-Cath with the tip in the distal SVC/right atrial junction. No overt pleural effusions. No overt pulmonary edema. No acute process. ASSESSMENT: 1. Atrial fibrillation with a rapid ventricular response. 2. Acute congestive heart failure exacerbation. 3. Acute hypoxemic respiratory failure, likely secondary to the above. 4. End-stage renal disease, on dialysis. 5. History of hypertension. 6. Coronary artery disease. 7. Diabetes. 8. Hyperlipidemia. 9. Tobacco use disorder. 10. History of a remote cerebrovascular accident. PLAN: She is appropriately fully anticoagulated. Heart rate is under better control now, she will be weaned off the Cardizem drip. Oral rate control medications will be deferred to Cardiology for now. She is on metoprolol as well as amiodarone. Absolute tobacco abstinence has been strongly counseled at bedside, also continued medication and clinician compliance has been recommended. Oxygen will be weaned to keep sats greater than or equal to about 90%. Aspiration precautions will be maintained. She is fully anticoagulated. She is appropriately on GI prophylaxis with Protonix. Electrolytes will be followed and corrected as necessary. We will defer to the donation specialist for hemodialysis and ultrafiltration to help with toxin and volume clearance. Flu and pneumonia vaccination will be addressed per protocol. Thank you very much for the consult. We will follow along and make further recommendations as picture progresses/becomes clearer. TID: [id number] RECEIPT: [id number] HARDY/DONY/LUCAS
[2022-03-11] MEDS: HYDROmorphone 1 MG/1 ML INJ IV PRN (07:09)
[2022-03-11] MEDS: PANTOPRAZOLE 40 MG TAB PO SCH (07:10)
[2022-03-11] MEDS: INSULIN LISPRO 100 UNIT/ML SUB-Q SCH ×3 (07:30→21:23)
[2022-03-11] MEDS: METOPROLOL TARTRATE 100 MG TAB PO SCH ×2 (10:36→21:21)
[2022-03-11] MEDS: AMIODARONE 200 MG TAB PO SCH ×2 (10:36→21:21)
[2022-03-11] MEDS: APIXABAN 5 MG TAB PO SCH ×2 (10:36→21:22)
[2022-03-11] MEDS: SENNOSIDES/DOCUSATE SODIUM 8.6/50 MG TAB PO SCH (10:36)
--- NOTE | 2022-03-11 10:36 | Progress Note ---
Assessment and Plan Assessment and plan: This is a 66-year-old female with known past medical history of ESRD on HD (T,R,Sat), HTN, CVA, [place], CAD s/p stent placement, CHF, PPM, history of PE, Atrial fibrillation on Eliquis at home, DM, COPD, HLD, bipolar disorder, and nicotine dependence admitted for CHF exacerbation and AFIB with RVR s/p Cardizem gtt. Hospital Course to Date: 03/10: Off cardizem gtt off this am, Apacing on the monitor HR in the 70s, VSS. Patient tolerated HD overnight, 2L removed. Patient is stable on RA this am, in no acute distress. Patient home medications reconciled. Cardiology consulted. 03/11: Remains paced at 70 on the monitor, VSS. Cardialogy consult pending. Now on O2 supplementation at 3L NC SPO2, low SPO2 this am. Probably due to fluid overload, continue HD per Nephro. Transfer to Telemetry once a bed is available. 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 with same complaints - Presented with CP, found in afib with RVR s/p Cardizem gtt - Patient is A-pacing on the monitor, HR in the 70s - BNP [id number], most likely due to fluid overload- HD per Nephro - On PO Amio, BB, and Statin - Home antihypertensive resumed - Cardiology consulted - Continue blood pressure monitor per protocol - Maintain SBP less than 160 - Home Eliquis resumed - Strict I's/O- monitor urine output every shift - Daily weight #End Stage Renal Disease(ESRD) on HD - HD days (T,R,Sa) - Nephrology on consult, appreciated recommendation - Tolerated HD on 03/09, 2L removed - Continue HD per Nephro - Strict intake and output - Avoid nephrotoxic medications; Renally dose medications - Monitor and replace electrolytes as needed #History of PE - Home Eliquis resumed #Type 2 Diabetes Mellitus - Consistent carbohydrate diet - Accu-Chek and SSI ACHS - Avoid Hypoglycemia #Tobacco Dependence - Smoking Cessation provided. Patient verbalized understanding of the info pr ovided - Patient denied any urges at this time, offer Nicotine patch if needed #GI/DVT Prophylaxis - PPI- Protonix - Home Eliquis resumed - SCD to bilateral lower extremities while in bed #Advance Care Planning - Disease education, care plan, diagnoses, and prognosis discussed with patient. Smoking cessation and medication compliance was also discussed. Patient acknowledges understanding of educations provided and agreement with current care plan. The high probability of a clinically significant, sudden or life threatening det erioration of the [multiple] system(s) required my full and direct attention, intervention and personal management. The aggregate critical care time was [60] minutes. This time is in addition to time spent performing reported procedures but includes the following: [x] Data Review and interpretation [x] Patient assessment and monitoring of vital signs [x] Documentation [x] Medication orders and management Disposition Plan: ICU Total Time Spent with Patient (Minutes): 60 History Interval history: Patient seen and examined at the beside. Fully AAO, now on 3L NC SPO2 SPO2 at 100%. Per RN patient desated this am, SPO2 in the 70s. Patient denied any SOB nor any discomfort, no acute distress noted. Apacing at 70 on the monitor, VSS Hospitalist Physical - Constitutional Vitals: Temp Pulse Resp BP Pulse Ox 98.1 F 70 15 138/84 100 03/11/22 08:00 03/11/22 09:00 03/11/22 09:00 03/11/22 09:00 03/11/22 10:13 General appearance: Present: no acute distress, cachectic - EENT Eyes: Present: PERRL, EOM intact ENT: hearing intact - Neck Neck: Present: normal ROM - Respiratory Respiratory effort: normal Respiratory: bilateral: diminished - Cardiovascular Rhythm: regular (Apaced) Heart Sounds: Present: S1 & S2 - Extremities Extremities: no ischemia, pulses intact, pulses symmetrical Peripheral Pulses: within normal limits - Abdominal General gastrointestinal: soft, non-distended, normal bowel sounds - Integumentary Integumentary: Present: clear, warm, dry - Psychiatric Psychiatric: appropriate mood/affect, cooperative - Neurologic Neurologic: CNII-XII intact, moves all extremities - Allied Health Allied health notes reviewed: nursing, case management HEART Score - HEART Score Troponin: Troponin T < 0.010 ng/mL (0.00-0.029) 03/09/22 20:22 Results - Labs CBC & Chem 7: 03/09/22 11:19 03/11/22 04:26 Labs: Laboratory Last Values WBC 8.6 K/mm3 (4.5-11.0) 03/09/22 11:19 RBC 3.77 M/mm3 (3.65-5.03) 03/09/22 11:19 Hgb 11.8 gm/dl (10.1-14.3) 03/09/22 11:19 Hct 35.9 % (30.3-42.9) 03/09/22 11:19 MCV 95 fl (79-97) 03/09/22 11:19 MCH 31 pg (28-32) 03/09/22 11:19 MCHC 33 % (30-34) 03/09/22 11:19 RDW 18.0 % (13.2-15.2) H 03/09/22 11:19 Plt Count 131 K/mm3 (140-440) L 03/09/22 11:19 Lymph % (Auto) 16.8 % (13.4-35.0) 03/09/22 11:19 [place] % (Auto) 7.7 % (0.0-7.3) H 03/09/22 11:19 Eos % (Auto) 3.4 % (0.0-4.3) 03/09/22 11:19 Baso % (Auto) 0.8 % (0.0-1.8) 03/09/22 11:19 Lymph # (Auto) 1.4 K/mm3 (1.2-5.4) 03/09/22 11:19 [place]ount # (Auto) 0.7 K/mm3 (0.0-0.8) 03/09/22 11:19 Eos # (Auto) 0.3 K/mm3 (0.0-0.4) 03/09/22 11:19 Baso # (Auto) 0.1 K/mm3 (0.0-0.1) 03/09/22 11:19 Seg Neutrophils % 71.3 % (40.0-70.0) H 03/09/22 11:19 Seg Neutrophils # 6.1 K/mm3 (1.8-7.7) 03/09/22 11:19 Sodium 140 mmol/L (137-145) 03/11/22 04: Potassium 5.0 mmol/L (3.6-5.0) 03/11/22 04:26 Chloride 100.3 mmol/L (98-107) 03/11/22 04:26 Carbon Dioxide 26 mmol/L (22-30) 03/11/22 04:26 Anion Gap 19 mmol/L 03/11/22 04:26 BUN 35 mg/dL (7-17) H 03/11/22 04:26 Creatinine 4.0 mg/dL (0.6-1.2) H D 03/11/22 04:26 Estimated GFR 14 ml/min 03/11/22 04:26 BUN/Creatinine Ratio 9 % 03/11/22 04:26 Glucose 93 mg/dL (65-100) 03/11/22 04:26 POC Glucose 84 mg/dL (70-105) 03/11/22 07:16 Hemoglobin A1c 4.9 % (4-6) 03/11/22 04:26 Calcium 9.6 mg/dL (8.4-10.2) 03/11/22 04:26 Phosphorus 4.00 mg/dL (2.5-4.5) 03/11/22 04:26 Magnesium 1.90 mg/dL (1.7-2.3) 03/11/22 04:26 Total Bilirubin 0.50 mg/dL (0.1-1.2) 03/09/22 11:19 AST 13 units/L (5-40) 03/09/22 11:19 ALT 7 units/L (7-56) 03/09/22 11:19 Alkaline Phosphatase 73 units/L (35-129) 03/09/22 11:19 Troponin T < 0.010 ng/mL (0.00-0.029) 03/09/22 20:22 NT-Pro-B Natriuret Pep 53053 pg/mL (0-900) H 03/09/22 11:19 Total Protein 6.1 g/dL (6.3-8.2) L 03/09/22 11:19 Albumin 4.3 g/dL (3.9-5) 03/09/22 11:19 Albumin/Globulin Ratio 2.4 % 03/09/22 11:19 [place]/IV: Voiding Method External Female Catheter Active Medications - Current Medications Current Medications: Generic Name Dose Route Start Last Admin Trade Name Freq PRN Reason Stop Dose Admin Acetaminophen 650 mg 03/09/22 12:42 Acetaminophen 325 Mg Tab PO Q6H PRN Pain MILD(1-3)/Fever >100.5/SILVA Albuterol 2.5 mg 03/09/22 12:42 Albuterol 2.5 Mg/3 Ml Nebu IH Q3HRT PRN Shortness Of Breath Amiodarone HCl 200 mg 03/09/22 13:00 03/10/22 21:25 Amiodarone 200 Mg Tab PO 200 mg BID CHRISTEL Administration Apixaban 5 mg 03/09/22 22:00 03/10/22 21:25 Apixaban 5 Mg Tab PO 5 mg Q12HR CHRISTEL Administration Aspirin 81 mg 03/09/22 12:00 03/10/22 10:32 Aspirin Ec 81 Mg Tab PO 81 mg QDAY CHRISTEL Administration Atorvastatin Calcium 20 mg 03/10/22 22:00 03/10/22 21:25 Atorvastatin 20 Mg Tab PO 20 mg QHS CHRISTEL Administration Dextrose 50 ml 03/10/22 08:12 Dextrose 50% In Water (25gm) 50 Ml Syringe IV Q30MIN PRN Hypoglycemia Protocol Gabapentin 100 mg 03/09/22 22:00 03/10/22 21:25 Gabapentin 100 Mg Cap PO 100 mg BID CHRISTEL Administration Heparin Sodium (Porcine) 5,000 unit 03/09/22 13:17 Heparin 10,000 Unit/1 Ml Vial IV KARLENE PRN hemodialysis Hydralazine HCl 50 mg 03/10/22 10:00 03/11/22 05:32 Hydralazine 25 Mg Tab PO 50 mg Q8HR CHRISTEL Administration Hydromorphone HCl 0.5 mg 03/09/22 12:42 03/11/22 07:09 Hydromorphone 1 Mg/1 Ml Inj IV 0.5 mg Q13H PRN Administration Pain , Severe (7-10) Sodium Chloride 100 mls @ 999 mls/hr 03/09/22 13:17 Nacl 0.9% IV KARLENE PRN Hypotension Insulin Human Lispro 0 unit 03/10/22 11:30 03/10/22 22:00 Insulin Lispro 100 Unit/Ml SUB-Q Not Given ACHS [facility] Protocol Isosorbide Mononitrate 60 mg 03/10/22 10:00 03/10/22 10:35 Isosorbide Mononitrate Er 60 Mg Tab PO 60 mg QDAY CHRISTEL Administration Losartan Potassium 50 mg 03/09/22 12:00 03/10/22 10:33 Losartan 50 Mg Tab PO 50 mg QDAY CH[facility]STEL Administration Metoprolol Tartrate 100 mg 03/09/22 22:00 03/10/22 21:24 Metoprolol Tartrate 100 Mg Tab PO 100 mg BID CH[facility]STEL Administration Oxycodone/Acetaminophen 1 tab 03/09/22 12:42 03/10/22 01:35 Oxycodone /Acetaminophen 5-325mg Tab PO 1 tab Q6H PRN Administration Pain, Moderate (4-6) Pantoprazole Sodium 40 mg 03/10/22 10:00 03/11/22 07:10 Pantoprazole 40 Mg Tab PO 40 mg QDAC CHRISTEL Administration Senna/Docusate Sodium 1 tab 03/10/22 10:00 03/10/22 10:35 Sennosides/Docusate Sodium 8.6/50 Mg Tab PO 1 tab DAILY CHRISTEL Administration Sodium Chloride 10 ml 03/09/22 22:00 03/10/22 21:27 Sodium Chloride 0.9% 10 Ml Flush Syringe IV 10 ml BID CHRISTEL Administration Sodium Chloride 10 ml 03/09/22 12:42 Sodium Chloride 0.9% 10 Ml Flush Syringe IV PRN PRN LINE FLUSH
[2022-03-11] MEDS: ASPIRIN EC 81 MG TAB PO SCH (10:37)
[2022-03-11] MEDS: GABAPENTIN 100 MG CAP PO SCH ×2 (10:37→21:21)
[2022-03-11] MEDS: LOSARTAN 50 MG TAB PO SCH (10:37)
--- NOTE | 2022-03-11 11:24 | Progress Note ---
Assessment and Plan Atrial fibrillation with RVR Acute congestive heart failure exacerbation Acute hypoxemic respiratory failure End-stage renal disease on dialysis Hypertension Coronary artery disease Diabetes type II Hyperlipidemia Tobacco use disorder H/O a remote cerebrovascular accident - prn supplemental oxygen to keep O2 sats > 90% - prn bronchodilators (ALLY) with pulm hygiene per RT - rate & rhythm control per cardiology (Amiodarone, Metoprolol) - avoid nephrotoxins, renally dose all medications - mobility protocols to prevent pressure ulcers - PT/OT as tolerated - Wound care per RN/WCT - continue accuchecks with glycemic control per SSI for target blood glucose < 180 mg/dL - tobacco abstinence strongly counseled at the bedside - home oxygen evaluation at discharge - prn analgesia per pain score - GI & VTE prophylaxis - Flu & pneumovax per protocol - Pulmonary out patient follow up for PFTs and optimization of respiratory status - continue other care per attending / other consultants ... re-evaluate in am & prn Subjective Date of service: 03/11/22 Principal diagnosis: A-Fib with RVR; AE-CHF; AHRF; ESRD on dialysis; HTN; CAD; DM II Interval history: Patient is seen today for: A-Fib with RVR; AE-CHF; Acute hypoxemic respiratory failure; ESRD on dialysis; HTN; CAD; DM II Seen and examined at bedside; 24hour events reviewed; nursing and respiratory care staff consulted; no adverse overnight events reported to me; restring peacefully in bed; feels better; A-fib rate controlled; denies N/V/F/C Objective Vital Signs - 12hr 03/11/22 03/11/22 03/11/22 00:00 00:01 01:00 Temperature 98.2 F Pulse Rate 70 70 Pulse Rate [ From Monitor] Pulse Rate [ Left Radial] Pulse Rate [ Right Radial] Respiratory 18 16 Rate Blood Pressure 128/76 119/62 O2 Sat by Pulse 99 97 Oximetry 03/11/22 03/11/22 03/11/22 02:00 03:00 03:40 Temperature 97.2 F L Pulse Rate 70 70 Pulse Rate [ From Monitor] Pulse Rate [ Left Radial] Pulse Rate [ Right Radial] Respiratory 15 17 Rate Blood Pressure 120/71 126/72 O2 Sat by Pulse 97 97 Oximetry 03/11/22 03/11/22 03/11/22 04:00 05:00 05:32 Temperature Pulse Rate 70 71 70 Pulse Rate [ From Monitor] Pulse Rate [ Left Radial] Pulse Rate [ Right Radial] Respiratory 16 12 Rate Blood Pressure 120/66 119/86 126/78 O2 Sat by Pulse 98 98 Oximetry 03/11/22 03/11/22 03/11/22 06:00 07:00 07:09 Temperature Pulse Rate 72 70 Pulse Rate [ From Monitor] Pulse Rate [ Left Radial] Pulse Rate [ Right Radial] Respiratory 14 13 17 Rate Blood Pressure 135/82 137/82 O2 Sat by Pulse 100 100 Oximetry 03/11/22 03/11/22 03/11/22 07:39 08:00 08:01 Temperature 98.1 F Pulse Rate 70 70 Pulse Rate [ 70 From Monitor] Pulse Rate [ 70 Left Radial] Pulse Rate [ 70 Right Radial] Respiratory 12 17 13 Rate Blood Pressure 136/77 O2 Sat by Pulse 97 76 L Oximetry 03/11/22 03/11/22 03/11/22 09:00 10:00 10:13 Temperature Pulse Rate 70 70 Pulse Rate [ From Monitor] Pulse Rate [ Left Radial] Pulse Rate [ Right Radial] Respiratory 15 13 Rate Blood Pressure 138/84 154/79 O2 Sat by Pulse 100 94 100 Oximetry 03/11/22 03/11/22 03/11/22 10:36 10:37 11:00 Temperature Pulse Rate 71 71 70 Pulse Rate [ From Monitor] Pulse Rate [ Left Radial] Pulse Rate [ Right Radial] Respiratory 13 Rate Blood Pressure 140/77 140/77 133/77 O2 Sat by Pulse 96 Oximetry Constitutional: no acute distress Eyes: non-icteric ENT: oropharynx moist Neck: supple, no lymphadenopathy, no JVD Effort: normal Ascultation: Bilateral: diminished breath sounds Percussion: Bilateral: not dull Cardiovascular: irregular rhythm Gastrointestinal: normoactive bowel sounds, soft, non-tender, non-distended Integumentary: normal Extremities: no cyanosis, no edema, pulses normal, no ischemia or petechiae Neurologic: non-focal exam, pupils equal and round, CN II-XII normal, motor strength normal and Psychiatric: mood appropriate, affect normal CBC and BMP: 03/09/22 11:19 03/11/22 04:26 Abnormal lab findings: Abnormal Labs 03/09/22 03/09/22 03/09/22 11:19 11:19 11:19 RDW 18.0 H Plt Count 131 L [place] % (Auto) 7.7 H Seg Neutrophils % 71.3 H BUN 30 H Creatinine 4.1 H Glucose POC Glucose Phosphorus 4.80 H NT-Pro-B Natriuret Pep 63438 H Total Protein 6.1 L 03/09/22 03/10/22 03/10/22 23:50 04:16 11:03 RDW Plt Count [place] % (Auto) Seg Neutrophils % BUN Creatinine 2.5 H Glucose 153 H POC Glucose 183 H 113 H Phosphorus NT-Pro-B Natriuret Pep Total Protein 03/10/22 03/10/22 03/11/22 16:19 21:17 04:26 RDW Plt Count [place] % (Auto) Seg Neutrophils % BUN 35 H Creatinine 4.0 H D Glucose POC Glucose 119 H 108 H Phosphorus NT-Pro-B Natriuret Pep Total Protein Allied health notes reviewed: nursing
[2022-03-11] MEDS ORDERED: NITROGLYCERIN 0.4 MG TAB SUBL SL PRN (12:20)
[2022-03-11] MEDS ORDERED: MORPHINE 2 MG/1 ML INJ IV SCH (12:30)
--- NOTE | 2022-03-11 12:34 | Progress Note ---
Assessment and Plan 1. ESRD: Patient is on maintenance hemodialysis, TTS schedule. Hemodialysis: 03/09. 2. FEN: UF with HD as tolerated. Monitor lytes and volume status. 3. Paroxysmal A.flutter with RVR: Amiodarone, Metoprolol and Eliquis. Monitor. 4. Chest pain // H/o CAD s/p PCI: CP associated with A.flutter with RVR. Recent CTA negative for PE. Monitor. 5. Chronic HFpEF: Volume control thru HD. Fluid restriction, monitor I/O. 6. H/o COPD: Not in exacerbation. Nebs and O2 as needed. 7. Hypertension: Volume control with HD. Continue home BP meds. Monitor BP. Subjective: Patient was seen and examined at the bedside. Examination: General appearance: well-developed, appears stated age, no distress HEENT: atraumatic, ANA Neck: trachea midline Respiratory: ctab Heart: S1S2, appears regular, no murmur Abdomen: soft, bowel sounds heard, NT Integumentary: no obvious rash Neurologic: AO, able to move extremities Ext: no edema Hemodialysis access: R IJ tunnel catheter, R arm AVG Subjective Date of service: 03/11/22 Principal diagnosis: A-Fib with RVR; AE-CHF; AHRF; ESRD on dialysis; HTN; CAD; DM II Objective - Vital Signs Vital signs: Vital Signs - 12hr 03/11/22 03/11/22 03/11/22 01:00 02:00 03:00 Temperature Pulse Rate 70 70 70 Pulse Rate [ From Monitor] Pulse Rate [ Left Radial] Pulse Rate [ Right Radial] Respiratory 16 15 17 Rate Blood Pressure 119/62 120/71 126/72 O2 Sat by Pulse 97 97 97 Oximetry 03/11/22 03/11/22 03/11/22 03:40 04:00 05:00 Temperature 97.2 F L Pulse Rate 70 71 Pulse Rate [ From Monitor] Pulse Rate [ Left Radial] Pulse Rate [ Right Radial] Respiratory 16 12 Rate Blood Pressure 120/66 119/86 O2 Sat by Pulse 98 98 Oximetry 03/11/22 03/11/22 03/11/22 05:32 06:00 07:00 Temperature Pulse Rate 70 72 70 Pulse Rate [ From Monitor] Pulse Rate [ Left Radial] Pulse Rate [ Right Radial] Respiratory 14 13 Rate Blood Pressure 126/78 135/82 137/82 O2 Sat by Pulse 100 100 Oximetry 03/11/22 03/11/22 03/11/22 07:09 07:39 08:00 Temperature 98.1 F Pulse Rate 70 Pulse Rate [ 70 From Monitor] Pulse Rate [ 70 Left Radial] Pulse Rate [ 70 Right Radial] Respiratory 17 12 17 Rate Blood Pressure O2 Sat by Pulse 97 Oximetry 03/11/22 03/11/22 03/11/22 08:01 09:00 10:00 Temperature Pulse Rate 70 70 70 Pulse Rate [ From Monitor] Pulse Rate [ Left Radial] Pulse Rate [ Right Radial] Respiratory 13 15 13 Rate Blood Pressure 136/77 138/84 154/79 O2 Sat by Pulse 76 L 100 94 Oximetry 03/11/22 03/11/22 03/11/22 10:13 10:36 10:37 Temperature Pulse Rate 71 71 Pulse Rate [ From Monitor] Pulse Rate [ Left Radial] Pulse Rate [ Right Radial] Respiratory Rate Blood Pressure 140/77 140/77 O2 Sat by Pulse 100 Oximetry 03/11/22 11:00 Temperature Pulse Rate 70 Pulse Rate [ From Monitor] Pulse Rate [ Left Radial] Pulse Rate [ Right Radial] Respiratory 13 Rate Blood Pressure 133/77 O2 Sat by Pulse 96 Oximetry - Lab 03/09/22 11:19 03/11/22 04:26 Most recent lab results Calcium 9.6 mg/dL (8.4-10.2) 03/11/22 04:26 Phosphorus 4.00 mg/dL (2.5-4.5) 03/11/22 04:26 Magnesium 1.90 mg/dL (1.7-2.3) 03/11/22 04:26 Medications & Allergies - Medications Allergies/Adverse Reactions: Allergies apple Adverse Reaction (Verified 02/27/22 09:44) Hives yellow and green apples. can eat red. aspirin Adverse Reaction (Verified 02/27/22 09:44) Unknown shell fish Allergy (Uncoded 02/27/22 09:44) Swelling allergic to seafood except blue crab Home Medications: Home Medications Medication Instructions Recorded Confirmed Last Taken Type Hydralazine HCl 50 mg PO TID 02/06/22 03/10/22 03/01/22 22:00 History cloNIDine [Catapres] 0.1 mg PO Q8HR 02/06/22 03/10/22 03/02/22 10:00 History Apixaban [Eliquis] 5 mg PO BID #60 tab 02/28/22 03/10/22 03/02/22 10:00 Rx Gabapentin 100 mg PO BID 03/02/22 03/10/22 Unknown History Losartan [Cozaar] 50 mg PO QDAY 03/02/22 03/10/22 03/01/22 10:00 History Nitroglycerin [Nitro-Bid] 0.1 mg TRANSDERMA Q6HR PRN 03/02/22 03/10/22 Unknown History Pantoprazole [Protonix TAB] 40 mg PO QDAY 03/02/22 03/10/22 03/02/22 10:00 History Diltiazem HCl [Cardizem] 240 mg PO DAILY 03/10/22 03/10/22 Unknown History Isosorbide Mononitrate [Isosorbide 60 mg PO DAILY 03/10/22 03/10/22 Unknown History Mononitrate ER] Sennosides/Docusate Sodium [Senna 1 cap PO DAILY 03/10/22 03/10/22 Unknown History Plus 8.6-50 mg Softgel] carvediloL [Coreg] 25 mg PO BID 03/10/22 03/10/22 Unknown History methIMAzole [Methimazole] 10 mg PO TID 03/10/22 03/10/22 Unknown History Active Medications: Generic Name Dose Route Start Last Admin Trade Name Freq PRN Reason Stop Dose Admin Acetaminophen 650 mg 03/09/22 12:42 Acetaminophen 325 Mg Tab PO Q6H PRN Pain MILD(1-3)/Fever >100.5/SILVA Albuterol 2.5 mg 03/09/22 12:42 Albuterol 2.5 Mg/3 Ml Nebu IH Q3HRT PRN Shortness Of Breath Amiodarone HCl 200 mg 03/09/22 13:00 03/11/22 10:36 Amiodarone 200 Mg Tab PO 200 mg BID CHRISTEL Administration Apixaban 5 mg 03/09/22 22:00 03/11/22 10:36 Apixaban 5 Mg Tab PO 5 mg Q12HR CHRISTEL Administration Aspirin 81 mg 03/09/22 12:00 03/11/22 10:37 Aspirin Ec 81 Mg Tab PO 81 mg QDAY CHRISTEL Administration Atorvastatin Calcium 20 mg 03/10/22 22:00 03/10/22 21:25 Atorvastatin 20 Mg Tab PO 20 mg QHS CHRISTEL Administration Dextrose 50 ml 03/10/22 08:12 Dextrose 50% In Water (25gm) 50 Ml Syringe IV Q30MIN PRN Hypoglycemia Protocol Gabapentin 100 mg 03/09/22 22:00 03/11/22 10:37 Gabapentin 100 Mg Cap PO 100 mg BID CHRISTEL Administration Heparin Sodium (Porcine) 5,000 unit 03/09/22 13:17 Heparin 10,000 Unit/1 Ml Vial IV KARLENE PRN hemodialysis Hydralazine HCl 50 mg 03/10/22 10:00 03/11/22 05:32 Hydralazine 25 Mg Tab PO 50 mg Q8HR CHRISTEL Administration Hydromorphone HCl 0.5 mg 03/09/22 12:42 03/11/22 07:09 Hydromorphone 1 Mg/1 Ml Inj IV 0.5 mg Q13H PRN Administration Pain , Severe (7-10) Sodium Chloride 100 mls @ 999 mls/hr 03/09/22 13:17 Nacl 0.9% IV KARLENE PRN Hypotension Insulin Human Lispro 0 unit 03/10/22 11:30 03/11/22 12:24 Insulin Lispro 100 Unit/Ml SUB-Q Not Given ACHS [facility] Protocol Isosorbide Mononitrate 60 mg 03/10/22 10:00 03/11/22 10:36 Isosorbide Mononitrate Er 60 Mg Tab PO 60 mg QDAY [facility] Administration Losartan Potassium 50 mg 03/09/22 12:00 03/11/22 10:37 Losartan 50 Mg Tab PO 50 mg QDAY [facility] Administration Metoprolol Tartrate 100 mg 03/09/22 22:00 03/11/22 10:36 Metoprolol Tartrate 100 Mg Tab PO 100 mg BID [facility] Administration Morphine Sulfate 2 mg 03/11/22 12:30 Morphine 2 Mg/1 Ml Inj IV 03/11/22 15:30 ONCE@1230 [facility] Nitroglycerin 0.4 mg 03/11/22 12:20 Nitroglycerin 0.4 Mg Tab Subl SL .Q5MIN PRN Chest Pain Oxycodone/Acetaminophen 1 tab 03/09/22 12:42 03/10/22 01:35 Oxycodone /Acetaminophen 5-325mg Tab PO 1 tab Q6H PRN Administration Pain, Moderate (4-6) Pantoprazole Sodium 40 mg 03/10/22 10:00 03/11/22 07:10 Pantoprazole 40 Mg Tab PO 40 mg QDAC CHRISTEL Administration Senna/Docusate Sodium 1 tab 03/10/22 10:00 03/11/22 10:36 Sennosides/Docusate Sodium 8.6/50 Mg Tab PO 1 tab DAILY CHRISTEL Administration Sodium Chloride 10 ml 03/09/22 22:00 03/11/22 12:27 Sodium Chloride 0.9% 10 Ml Flush Syringe IV 10 ml BID CHRISTEL Administration Sodium Chloride 10 ml 03/09/22 12:42 Sodium Chloride 0.9% 10 Ml Flush Syringe IV PRN PRN LINE FLUSH
--- NOTE | 2022-03-11 13:03 | Consultation ---
History of Present Illness Consult date: 03/11/22 Consult reason: atrial fibrillation, chest pain History of present illness: The patient is a 66-year-old woman with end-stage renal disease on hemodialysis, who previously lived in this area, relocated to [place] but has come back to live here in the past 2 months. She has sick sinus syndrome and paroxysmal atrial flutter and fibrillation. She has an indwelling dual-chamber pacemaker. She is on rhythm control therapy for her atrial tachyarrhythmias, and on oral anticoagulation with Eliquis. She has coronary artery disease with previous stents in the mid and distal LAD. The stents where patent on the repeat cardiac catheterization 4 years ago. Serial left ventricular function assessments have recorded normal ventricular ejection fraction 50 to 55%. She presents to this hospital at this time complaining of chest pressure and palpitations. It to be noted that on presentation, there was atrial flutter and fibrillation with rapid ventricular response. Her atrial fibrillation and flutter have since resolved, and the patient feels much better. EKG shows an atrial paced rhythm, with [place] QRS complexes. No ischemic changes on EKG. She states that the present time that she feels well and wants to go home. Chest x-ray is borderline cardiomegaly with clear lungs. Past History Past Medical History: acute TX, atrial fib, COPD, ESRD, hypertension, hyperlipid emia, stroke, other (See HPI) Past Surgical History: total knee replacement, PTCA, Other ((stent placement x 2 in 2014, knee surgery 11/2017, right upper extremity fistula)) Social history: . denies: smoking, alcohol abuse, prescription drug abuse Family history: diabetes, hypertension Medications and Allergies Allergies Allergy/AdvReac Type Severity Reaction Status Date / Time apple AdvReac Hives Verified 02/27/22 09:44 aspirin AdvReac Unknown Verified 02/27/22 09:44 shell fish Allergy Swelling Uncoded 02/27/22 09:44 Home Medications Medication Instructions Recorded Confirmed Last Taken Type Hydralazine HCl 50 mg PO TID 02/06/22 03/10/22 03/01/22 22:00 History cloNIDine [Catapres] 0.1 mg PO Q8HR 02/06/22 03/10/22 03/02/22 10:00 History Apixaban [Eliquis] 5 mg PO BID #60 tab 02/28/22 03/10/22 03/02/22 10:00 Rx Gabapentin 100 mg PO BID 03/02/22 03/10/22 Unknown History Losartan [Cozaar] 50 mg PO QDAY 03/02/22 03/10/22 03/01/22 10:00 History Nitroglycerin [Nitro-Bid] 0.1 mg TRANSDERMA Q6HR PRN 03/02/22 03/10/22 Unknown History Pantoprazole [Protonix TAB] 40 mg PO QDAY 03/02/22 03/10/22 03/02/22 10:00 History Diltiazem HCl [Cardizem] 240 mg PO DAILY 03/10/22 03/10/22 Unknown History Isosorbide Mononitrate [Isosorbide 60 mg PO DAILY 03/10/22 03/10/22 Unknown History Mononitrate ER] Sennosides/Docusate Sodium [Senna 1 cap PO DAILY 03/10/22 03/10/22 Unknown History Plus 8.6-50 mg Softgel] carvediloL [Coreg] 25 mg PO BID 03/10/22 03/10/22 Unknown History methIMAzole [Methimazole] 10 mg PO TID 03/10/22 03/10/22 Unknown History Active Meds: Active Medications Acetaminophen (Acetaminophen 325 Mg Tab) 650 mg PO Q6H PRN PRN Reason: Pain MILD(1-3)/Fever >100.5/SILVA Albuterol (Albuterol 2.5 Mg/3 Ml Nebu) 2.5 mg IH Q3HRT PRN PRN Reason: Shortness Of Breath Amiodarone HCl (Amiodarone 200 Mg Tab) 200 mg PO BID [facility] Last Admin: 03/11/22 10:36 Dose: 200 mg Apixaban (Apixaban 5 Mg Tab) 5 mg PO Q12HR [facility] Last Admin: 03/11/22 10:36 Dose: 5 mg Aspirin (Aspirin Ec 81 Mg Tab) 81 mg PO QDAY [facility] Last Admin: 03/11/22 10:37 Dose: 81 mg Atorvastatin Calcium (Atorvastatin 20 Mg Tab) 20 mg PO QHS [facility] Last Admin: 03/10/22 21:25 Dose: 20 mg Dextrose (Dextrose 50% In Water (25gm) 50 Ml Syringe) 50 ml IV Q30MIN PRN; Protocol PRN Reason: Hypoglycemia Gabapentin (Gabapentin 100 Mg Cap) 100 mg PO BID [facility] Last Admin: 03/11/22 10:37 Dose: 100 mg Heparin Sodium (Porcine) (Heparin 10,000 Unit/1 Ml Vial) 5,000 unit IV KARLENE PRN PRN Reason: hemodialysis Hydralazine HCl (Hydralazine 25 Mg Tab) 50 mg PO Q8HR [facility] Last Admin: 03/11/22 05:32 Dose: 50 mg Hydromorphone HCl (Hydromorphone 1 Mg/1 Ml Inj) 0.5 mg IV Q13H PRN PRN Reason: Pain , Severe (7-10) Last Admin: 03/11/22 07:09 Dose: 0.5 mg Sodium Chloride (Nacl 0.9%) 100 mls @ 999 mls/hr IV KARLENE PRN PRN Reason: Hypotension Insulin Human Lispro (Insulin Lispro 100 Unit/Ml) 0 unit SUB-Q ACHS [facility]; Protocol Last Admin: 03/11/22 12:24 Dose: Not Given Isosorbide Mononitrate (Isosorbide Mononitrate Er 60 Mg Tab) 60 mg PO QDAY [facility] Last Admin: 03/11/22 10:36 Dose: 60 mg Losartan Potassium (Losartan 50 Mg Tab) 50 mg PO QDAY [facility] Last Admin: 03/11/22 10:37 Dose: 50 mg Metoprolol Tartrate (Metoprolol Tartrate 100 Mg Tab) 100 mg PO BID [facility] Last Admin: 03/11/22 10:36 Dose: 100 mg Morphine Sulfate (Morphine 2 Mg/1 Ml Inj) 2 mg IV ONCE@1230 [facility] Stop: 03/11/22 15:30 Nitroglycerin (Nitroglycerin 0.4 Mg Tab Subl) 0.4 mg SL .Q5MIN PRN PRN Reason: Chest Pain Oxycodone/Acetaminophen (Oxycodone /Acetaminophen 5-325mg Tab) 1 tab PO Q6H PRN PRN Reason: Pain, Moderate (4-6) Last Admin: 03/10/22 01:35 Dose: 1 tab Pantoprazole Sodium (Pantoprazole 40 Mg Tab) 40 mg PO QDAC [facility] Last Admin: 03/11/22 07:10 Dose: 40 mg Senna/Docusate Sodium (Sennosides/Docusate Sodium 8.6/50 Mg Tab) 1 tab PO DAILY [facility] Last Admin: 03/11/22 10:36 Dose: 1 tab Sodium Chloride (Sodium Chloride 0.9% 10 Ml Flush Syringe) 10 ml IV BID [facility] Last Admin: 03/11/22 12:27 Dose: 10 ml Sodium Chloride (Sodium Chloride 0.9% 10 Ml Flush Syringe) 10 ml IV PRN PRN PRN Reason: LINE FLUSH Review of Systems Cardiovascular: chest pain, palpitations, rapid/irregular heart beat, shortness of breath, no orthopnea, no edema, no syncope, no lightheadedness Physical Examination Vital Signs Temp Pulse Resp BP Pulse Ox 98.3 F 92 H 18 184/106 99 03/09/22 08:23 03/09/22 08:23 03/09/22 08:23 03/09/22 08:23 03/09/22 08:23 General appearance: no acute distress HEENT: Positive: PERRL Neck: Positive: neck supple Cardiac: Positive: Irregularly Regular Lungs: Positive: Decreased Breath Sounds Neuro: Positive: Grossly Intact Abdomen: Positive: Soft Female genitourinary: deferred Skin: Positive: Clear Extremities: Absent: edema Results 03/09/22 11:19 03/11/22 04:26 Comprehensive Metabolic Panel 03/11/22 Range/Units 04:26 Sodium 140 (137-145) mmol/L Potassium 5.0 (3.6-5.0) mmol/L Chloride 100.3 (98-107) mmol/L Carbon Dioxide 26 (22-30) mmol/L BUN 35 H (7-17) mg/dL Creatinine 4.0 H D (0.6-1.2) mg/dL Glucose 93 (65-100) mg/dL Calcium 9.6 (8.4-10.2) mg/dL EKG interpretations Pacemaker: atrial pacing w/capture Assessment and Plan - Patient Problems (1) Paroxysmal atrial flutter Current Visit: Yes Status: Acute Plan to address problem: Patient has a longstanding history of paroxysmal atrial flutter on rhythm control and chronic Eliquis. Current symptoms of chest pressure and palpitations appear associated with a recurrence of her atrial flutter, she is asymptomatic after resolution of the atrial tachyarrhythmia. We will increase amiodarone therapy for suppression of atrial flutter. (2) Coronary artery disease Current Visit: Yes Status: Acute Plan to address problem: Patient has longstanding coronary artery disease with LAD stents which were widely patent on a follow-up cardiac catheterization just 4 years ago. There are no symptoms of recurrent ischemia at this time, her current symptoms were associated with a recurrence of her paroxysmal atrial flutter. She will continue her outpatient follow-up in 5 to 7 days after discharge, since she is now relocated back to this area. Any further ischemic work-up will be done in the outpatient setting.
--- NOTE | 2022-03-11 13:22 | Electrocardiograph Report ---
[facility] Test Date: 2022-03-09 Test Time: 08:33:25 Pat Name: TEETEE MARTINEZ Department: Room: A261 Gender: F [employer] Supervisor: NICHOLE : 1955 Requested By: LITA WOODSON Order Number: [id number] Reading MD: Isis Steele Measurements Intervals [place] Rate: 108 P: PA: QRS: -15 QRSD: 90 T: 89 QT: 374 QTc: 503 Interpretive Statements Atrial fibrillation Consider anteroseptal infarct Nonspecific T abnormalities, lateral leads Prolonged QT interval Compared to ECG 03/02/2022 14:10:11 Atrial fibrillation has replaced atrial flutter Otherwise no significant change Electronically Signed On 03-11-2022 13:22:37 EDT by Isis Steele
[2022-03-11 13:27] LABS: Creatine Kinase MB 1.3 ng/mL (0.0-4.0)
[2022-03-11] MEDS ORDERED: AMIODARONE 150 MG in DEXTROSE 5% IN WATER 100 ML IV SCH (13:45)
[2022-03-11] MEDS: MORPHINE 2 MG/1 ML INJ IV PRN ×2 (15:45→21:19)
[2022-03-11 18:25] LABS: Creatine Kinase MB 1.3 ng/mL (0.0-4.0)
[2022-03-12 01:37] LABS: Creatine Kinase MB 1.1 ng/mL (0.0-4.0)
[2022-03-12 05:39] LABS: Calcium 8.5 mg/dL (8.4-10.2)
[2022-03-12] MEDS: HYDROmorphone 1 MG/1 ML INJ IV PRN (07:14)
[2022-03-12] MEDS: PANTOPRAZOLE 40 MG TAB PO SCH (07:14)
[2022-03-12] MEDS: hydrALAZINE 25 MG TAB PO SCH ×2 (07:16→17:11)
[2022-03-12] MEDS ORDERED: MAGNESIUM HYDROXIDE (MOM) ORAL LIQD UDC PO PRN (08:22)
[2022-03-12] MEDS: AMIODARONE 200 MG TAB PO SCH (09:03)
[2022-03-12] MEDS: LOSARTAN 50 MG TAB PO SCH (09:04)
[2022-03-12] MEDS: APIXABAN 5 MG TAB PO SCH (09:04)
[2022-03-12] MEDS: SENNOSIDES/DOCUSATE SODIUM 8.6/50 MG TAB PO SCH (09:04)
[2022-03-12] MEDS: METOPROLOL TARTRATE 100 MG TAB PO SCH (09:04)
[2022-03-12] MEDS: GABAPENTIN 100 MG CAP PO SCH (09:04)
[2022-03-12] MEDS: ASPIRIN EC 81 MG TAB PO SCH (09:05)
--- NOTE | 2022-03-12 09:13 | Progress Note ---
Assessment and Plan 1. ESRD: Patient is on maintenance hemodialysis, TTS schedule. Hemodialysis: 03/09. HD today. 2. FEN: UF with HD as tolerated. Monitor lytes and volume status. 3. Paroxysmal A.flutter with RVR: Amiodarone, Metoprolol and Eliquis. Monitor. 4. Chest pain // H/o CAD s/p PCI: CP associated with A.flutter with RVR. Recent CTA negative for PE. Monitor. 5. Chronic HFpEF: Volume control thru HD. Fluid restriction, monitor I/O. 6. H/o COPD: Not in exacerbation. Nebs and O2 as needed. 7. Hypertension: Volume control with HD. Continue home BP meds. Monitor BP. Subjective: Patient was seen and examined at the bedside. Examination: General appearance: well-developed, appears stated age, no distress HEENT: atraumatic, ANA Neck: trachea midline Respiratory: ctab Heart: S1S2, no murmur Abdomen: soft, bowel sounds heard, NT Integumentary: no obvious rash Neurologic: AO, able to move extremities Ext: no edema Hemodialysis access: R IJ tunnel catheter, R arm AVG Subjective Date of service: 03/12/22 Principal diagnosis: A-Fib with RVR; AE-CHF; AHRF; ESRD on dialysis; HTN; CAD; DM II Objective - Vital Signs Vital signs: Vital Signs - 12hr 03/11/22 03/11/22 03/11/22 21:15 21:21 22:00 Temperature Pulse Rate 81 90 Pulse Rate [ From Monitor] Pulse Rate [ Left Radial] Pulse Rate [ Right Radial] Respiratory 14 Rate Blood Pressure 122/75 121/69 O2 Sat by Pulse 97 97 Oximetry 03/11/22 03/12/22 03/12/22 23:00 00:00 01:00 Temperature 98.4 F Pulse Rate 81 72 71 Pulse Rate [ 81 From Monitor] Pulse Rate [ 81 Left Radial] Pulse Rate [ 81 Right Radial] Respiratory 14 16 17 Rate Blood Pressure 128/75 141/83 140/71 O2 Sat by Pulse 96 98 97 Oximetry 03/12/22 03/12/22 03/12/22 02:00 03:00 04:00 Temperature 97.8 F Pulse Rate 85 84 73 Pulse Rate [ 72 From Monitor] Pulse Rate [ 70 Left Radial] Pulse Rate [ 70 Right Radial] Respiratory 15 17 14 Rate Blood Pressure 122/74 106/60 130/76 O2 Sat by Pulse 95 95 98 Oximetry 03/12/22 03/12/22 03/12/22 05:00 06:00 07:00 Temperature Pulse Rate 73 70 71 Pulse Rate [ From Monitor] Pulse Rate [ Left Radial] Pulse Rate [ Right Radial] Respiratory 16 14 14 Rate Blood Pressure 137/76 135/77 136/77 O2 Sat by Pulse 95 97 97 Oximetry 03/12/22 03/12/22 03/12/22 07:14 07:16 09:03 Temperature Pulse Rate 70 70 Pulse Rate [ From Monitor] Pulse Rate [ Left Radial] Pulse Rate [ Right Radial] Respiratory 13 Rate Blood Pressure 140/79 138/76 O2 Sat by Pulse Oximetry 03/12/22 09:04 Temperature Pulse Rate 70 Pulse Rate [ From Monitor] Pulse Rate [ Left Radial] Pulse Rate [ Right Radial] Respiratory Rate Blood Pressure 138/76 O2 Sat by Pulse Oximetry - Lab 03/09/22 11:19 03/12/22 04:52 Most recent lab results Calcium 8.5 mg/dL (8.4-10.2) 03/12/22 04:52 Phosphorus 4.00 mg/dL (2.5-4.5) 03/11/22 04:26 Magnesium 1.90 mg/dL (1.7-2.3) 03/11/22 04:26 Medications & Allergies - Medications Allergies/Adverse Reactions: Allergies apple Adverse Reaction (Verified 02/27/22 09:44) Hives yellow and green apples. can eat red. aspirin Adverse Reaction (Verified 02/27/22 09:44) Unknown shell fish Allergy (Uncoded 02/27/22 09:44) Swelling allergic to seafood except blue crab Home Medications: Home Medications Medication Instructions Recorded Confirmed Last Taken Type Gabapentin 100 mg PO BID 03/02/22 03/10/22 Unknown History Nitroglycerin [Nitro-Bid] 0.1 mg TRANSDERMA Q6HR PRN 03/02/22 03/10/22 Unknown History Pantoprazole [Protonix TAB] 40 mg PO QDAY 03/02/22 03/10/22 03/02/22 10:00 History Sennosides/Docusate Sodium [Senna 1 cap PO DAILY 03/10/22 03/10/22 Unknown History Plus 8.6-50 mg Softgel] methIMAzole [Methimazole] 10 mg PO TID 03/10/22 03/10/22 Unknown History Acetaminophen [Acetaminophen TAB] 650 mg PO Q6H PRN tablet 03/12/22 Unknown Rx Amiodarone [Cordarone 200 MG TAB] 200 mg PO BID #60 tablet 03/12/22 Unknown Rx Apixaban [Eliquis] 5 mg PO BID #60 tab 03/12/22 Unknown Rx AtorvaSTATin [Lipitor] 20 mg PO QHS #30 tablet 03/12/22 Unknown Rx ISOSORBIDE MONOnitrate [Imdur ER] 60 mg PO QDAY #30 tablet 03/12/22 Unknown Rx Losartan [Cozaar] 50 mg PO QDAY #30 tab 03/12/22 Unknown Rx Magnesium Hydroxide [Milk of 30 ml PO Q4H PRN oral.liqd 03/12/22 Unknown Rx Magnesia] Metoprolol [Lopressor TAB] 100 mg PO BID #60 tablet 03/12/22 Unknown Rx Nitroglycerin [Nitrostat] 0.4 mg SL .Q5MIN PRN #15 tablet 03/12/22 Unknown Rx Sennosides/Docusate [Senokot S] 1 tab PO DAILY #30 tablet 03/12/22 Unknown Rx hydrALAZINE [Apresoline TAB] 50 mg PO Q8HR #120 tablet 03/12/22 Unknown Rx polyethylene glycoL 3350 [Miralax 17 gm PO QDAY #15 powd.pack 03/12/22 Unknown Rx 3350] traMADoL [Ultram 50 MG tab] 50 mg PO Q6H PRN #5 tablet 03/12/22 Unknown Rx Active Medications: Generic Name Dose Route Start Last Admin Trade Name Freq PRN Reason Stop Dose Admin Acetaminophen 650 mg 03/09/22 12:42 Acetaminophen 325 Mg Tab PO Q6H PRN Pain MILD(1-3)/Fever >100.5/SILVA Albuterol 2.5 mg 03/09/22 12:42 Albuterol 2.5 Mg/3 Ml Nebu IH Q3HRT PRN Shortness Of Breath Amiodarone HCl 200 mg 03/09/22 13:00 03/12/22 09:03 Amiodarone 200 Mg Tab PO 200 mg BID [facility] Administration Apixaban 5 mg 03/09/22 22:00 03/12/22 09:04 Apixaban 5 Mg Tab PO 5 mg Q12HR [facility] Administration Aspirin 81 mg 03/09/22 12:00 03/12/22 09:05 Aspirin Ec 81 Mg Tab PO 81 mg QDAY [facility] Administration Atorvastatin Calcium 20 mg 03/10/22 22:00 03/11/22 21:21 Atorvastatin 20 Mg Tab PO 20 mg QHS [facility] Administration Dextrose 50 ml 03/10/22 08:12 Dextrose 50% In Water (25gm) 50 Ml Syringe IV Q30MIN PRN Hypoglycemia Protocol Gabapentin 100 mg 03/09/22 22:00 03/12/22 09:04 Gabapentin 100 Mg Cap PO 100 mg BID [facility] Administration Heparin Sodium (Porcine) 5,000 unit 03/09/22 13:17 Heparin 10,000 Unit/1 Ml Vial IV KARLENE PRN hemodialysis Hydralazine HCl 50 mg 03/10/22 10:00 03/12/22 07:16 Hydralazine 25 Mg Tab PO 50 mg Q8HR [facility] Administration Hydromorphone HCl 0.5 mg 03/09/22 12:42 03/12/22 07:14 Hydromorphone 1 Mg/1 Ml Inj IV 0.5 mg Q13H PRN Administration Pain , Severe (7-10) Sodium Chloride 100 mls @ 999 mls/hr 03/09/22 13:17 Nacl 0.9% IV KARLENE PRN Hypotension Insulin Human Lispro 0 unit 03/10/22 11:30 03/11/22 21:23 Insulin Lispro 100 Unit/Ml SUB-Q Not Given ACHS [facility] Protocol Isosorbide Mononitrate 60 mg 03/10/22 10:00 03/12/22 09:03 Isosorbide Mononitrate Er 60 Mg Tab PO 60 mg QDAY [facility] Administration Losartan Potassium 50 mg 03/09/22 12:00 03/12/22 09:04 Losartan 50 Mg Tab PO 50 mg QDAY [facility] Administration Magnesium Hydroxide 30 ml 03/12/22 08:22 03/12/22 09:03 Magnesium Hydroxide (Mom) Oral Liqd Udc PO 30 ml Q4H PRN Administration Constipation Metoprolol Tartrate 100 mg 03/09/22 22:00 03/12/22 09:04 Metoprolol Tartrate 100 Mg Tab PO 100 mg BID [facility] Administration Morphine Sulfate 2 mg 03/11/22 15:26 03/11/22 21:19 Morphine 2 Mg/1 Ml Inj IV 2 mg Q4H PRN Administration Pain, Moderate (4-6) Nitroglycerin 0.4 mg 03/11/22 12:20 Nitroglycerin 0.4 Mg Tab Subl SL .Q5MIN PRN Chest Pain Oxycodone/Acetaminophen 1 tab 03/09/22 12:42 03/10/22 01:35 Oxycodone /Acetaminophen 5-325mg Tab PO 1 tab Q6H PRN Administration Pain, Moderate (4-6) Pantoprazole Sodium 40 mg 03/10/22 10:00 03/12/22 07:14 Pantoprazole 40 Mg Tab PO 40 mg QDAC [facility] Administration Senna/Docusate Sodium 1 tab 03/10/22 10:00 03/12/22 09:04 Sennosides/Docusate Sodium 8.6/50 Mg Tab PO 1 tab DAILY [facility] Administration Sodium Chloride 10 ml 03/09/22 22:00 03/11/22 21:22 Sodium Chloride 0.9% 10 Ml Flush Syringe IV 10 ml BID [facility] Administration Sodium Chloride 10 ml 03/09/22 12:42 Sodium Chloride 0.9% 10 Ml Flush Syringe IV PRN PRN LINE FLUSH
[2022-03-12] MEDS: MORPHINE 2 MG/1 ML INJ IV PRN (11:14)
[2022-03-12] MEDS ORDERED: traMADol 50 MG TAB PO PRN (12:18)
[2022-03-12] MEDS ORDERED: oxyCODONE /ACETAMINOPHEN 5-325MG TAB PO PRN (12:18)
--- NOTE | 2022-03-12 12:52 | Progress Note ---
Assessment and Plan Atrial fibrillation with RVR Acute congestive heart failure exacerbation Acute hypoxemic respiratory failure End-stage renal disease on dialysis Hypertension Coronary artery disease Diabetes type II Hyperlipidemia Tobacco use disorder H/O a remote cerebrovascular accident - discharge planning ok cardiac & pulmonary-diaz - HD/UF scheduled for today - continue care as below for now otherwise; - prn supplemental oxygen to keep O2 sats > 90% - prn bronchodilators (ALLY) with pulm hygiene per RT - rate & rhythm control per cardiology (Amiodarone, Metoprolol) - avoid nephrotoxins, renally dose all medications - mobility protocols to prevent pressure ulcers - PT/OT as tolerated - Wound care per RN/WCT - continue accuchecks with glycemic control per SSI for target blood glucose < 180 mg/dL - tobacco abstinence strongly counseled at the bedside - home oxygen evaluation at discharge - prn analgesia per pain score - GI & VTE prophylaxis - Flu & pneumovax per protocol - Pulmonary out patient follow up for PFTs and optimization of respiratory status - continue other care per attending / other consultants ... re-evaluate in am & prn Subjective Date of service: 03/12/22 Principal diagnosis: A-Fib with RVR; AE-CHF; AHRF; ESRD on dialysis; HTN; CAD; DM II Interval history: Patient is seen today for: A-Fib with RVR; AE-CHF; Acute hypoxemic respiratory failure; ESRD on dialysis; HTN; CAD; DM II Seen and examined at bedside; 24hour events reviewed; nursing and respiratory care staff consulted; no adverse overnight events reported to me; restring peacefully in bed; denies acute chest pains or palpitations; No N/V/F/C Objective Vital Signs - 12hr 03/12/22 03/12/22 03/12/22 01:00 02:00 03:00 Temperature Pulse Rate 71 85 84 Pulse Rate [ From Monitor] Pulse Rate [ Left Radial] Pulse Rate [ Right Radial] Respiratory 17 15 17 Rate Respiratory Rate [Bilateral Back] Respiratory Rate [Chest] Blood Pressure 140/71 122/74 106/60 O2 Sat by Pulse 97 95 95 Oximetry 03/12/22 03/12/22 03/12/22 04:00 05:00 06:00 Temperature 97.8 F Pulse Rate 73 73 70 Pulse Rate [ 72 From Monitor] Pulse Rate [ 70 Left Radial] Pulse Rate [ 70 Right Radial] Respiratory 14 16 14 Rate Respiratory Rate [Bilateral Back] Respiratory Rate [Chest] Blood Pressure 130/76 137/76 135/77 O2 Sat by Pulse 98 95 97 Oximetry 03/12/22 03/12/22 03/12/22 07:00 07:14 07:16 Temperature Pulse Rate 71 70 Pulse Rate [ From Monitor] Pulse Rate [ Left Radial] Pulse Rate [ Right Radial] Respiratory 14 13 Rate Respiratory Rate [Bilateral Back] Respiratory Rate [Chest] Blood Pressure 136/77 140/79 O2 Sat by Pulse 97 Oximetry 03/12/22 03/12/22 03/12/22 08:00 09:00 09:03 Temperature 97.1 F L Pulse Rate 70 70 70 Pulse Rate [ 70 From Monitor] Pulse Rate [ 70 Left Radial] Pulse Rate [ 70 Right Radial] Respiratory 14 17 Rate Respiratory 13 Rate [Bilateral Back] Respiratory Rate [Chest] Blood Pressure 151/84 138/76 138/76 O2 Sat by Pulse 100 98 Oximetry 03/12/22 03/12/22 03/12/22 09:04 10:00 11:08 Temperature Pulse Rate 70 70 Pulse Rate [ From Monitor] Pulse Rate [ Left Radial] Pulse Rate [ Right Radial] Respiratory 15 Rate Respiratory 15 Rate [Bilateral Back] Respiratory 15 Rate [Chest] Blood Pressure 138/76 139/77 O2 Sat by Pulse 97 Oximetry 03/12/22 11:14 Temperature Pulse Rate Pulse Rate [ From Monitor] Pulse Rate [ Left Radial] Pulse Rate [ Right Radial] Respiratory 15 Rate Respiratory Rate [Bilateral Back] Respiratory Rate [Chest] Blood Pressure O2 Sat by Pulse Oximetry Constitutional: no acute distress Eyes: non-icteric ENT: oropharynx moist Neck: supple, no lymphadenopathy, no JVD Effort: normal Ascultation: Bilateral: diminished breath sounds Percussion: Bilateral: not dull Cardiovascular: irregular rhythm Gastrointestinal: normoactive bowel sounds, soft, non-tender, non-distended Integumentary: normal Extremities: no cyanosis, no edema, pulses normal, no ischemia or petechiae Neurologic: non-focal exam, pupils equal and round, CN II-XII normal, motor strength normal and Psychiatric: mood appropriate, affect normal CBC and BMP: 03/09/22 11:19 03/12/22 04:52 Abnormal lab findings: Abnormal Labs 03/09/22 03/09/22 03/09/22 11:19 11:19 11:19 RDW 18.0 H Plt Count 131 L [place] % (Auto) 7.7 H Seg Neutrophils % 71.3 H Sodium Potassium BUN 30 H Creatinine 4.1 H Glucose POC Glucose Phosphorus 4.80 H Total Creatine Kinase CK-MB (CK-2) Rel Index NT-Pro-B Natriuret Pep 25648 H Total Protein 6.1 L 03/09/22 03/10/22 03/10/22 23:50 04:16 11:03 RDW Plt Count [place] % (Auto) Seg Neutrophils % Sodium Potassium BUN Creatinine 2.5 H Glucose 153 H POC Glucose 183 H 113 H Phosphorus Total Creatine Kinase CK-MB (CK-2) Rel Index NT-Pro-B Natriuret Pep Total Protein 03/10/22 03/10/22 03/11/22 16:19 21:17 04:26 RDW Plt Count [place] % (Auto) Seg Neutrophils % Sodium Potassium BUN 35 H Creatinine 4.0 H D Glucose POC Glucose 119 H 108 H Phosphorus Total Creatine Kinase CK-MB (CK-2) Rel Index NT-Pro-B Natriuret Pep Total Protein 03/11/22 03/11/22 03/11/22 12:26 17:10 20:54 RDW Plt Count [place] % (Auto) Seg Neutrophils % Sodium Potassium BUN Creatinine Glucose POC Glucose 112 H Phosphorus Total Creatine Kinase 29 L 28 L CK-MB (CK-2) Rel Index 4.4 H 4.6 H NT-Pro-B Natriuret Pep Total Protein 03/12/22 03/12/22 00:50 04:52 RDW Plt Count [place] % (Auto) Seg Neutrophils % Sodium 136 L Potassium 5.2 H BUN 49 H Creatinine 4.5 H Glucose POC Glucose Phosphorus Total Creatine Kinase 23 L CK-MB (CK-2) Rel Index 4.7 H NT-Pro-B Natriuret Pep Total Protein Allied health notes reviewed: nursing
[2022-03-12] MEDS ORDERED: POLYETHYLENE GLYCOL 3350 17 GM POWDER PO SCH (13:00)
--- NOTE | 2022-03-12 13:35 | Discharge Summary ---
Providers - Providers Date of Admission: 03/09/22 14:00 Date of discharge: 03/12/22 Attending physician: STEVO RIVERA MD 03/09/22 12:36 Consult to Physician [CONS] Urgent Comment: Consulting Provider: SEBAS DELGADO Physician Instructions: Reason For Exam: esrd 03/09/22 12:40 Consult to Physician [CONS] Urgent Comment: Consulting Provider: BURKE PEREZ Physician Instructions: Reason For Exam: afib rvr 03/10/22 08:13 Consult to Dietitian/Nutrition [CONS] Routine Physician Instructions: Reason For Exam: Reason for Consult: Diet education 03/10/22 09:12 Consult to Physician [CONS] Routine Comment: called answ. servRhina oliva Consulting Provider: DEV BROWN Physician Instructions: Reason For Exam: AFIB with RVR, CHF exacerbation 03/11/22 16:34 Occupational Therapy Evaluate and Treat [CONS] Routine Comment: Reason For Exam: Debility Physical Therapy Evaluation and Treat [CONS] Routine Comment: Reason For Exam: Debility with unsteady gait Primary care physician: VICENTA PILLAI DO Hospitalization Condition: Stable Hospital course: This is a a 66-year-old female with ESRD on HD ([facility]), HTN, CVA, CO, CAD s/p stent placement, CHF,s/p PPM, atrial fibrillation on home Eliquis, remote history of DM, COPD, hyperlipidemia, bipolar disorder and nicotine dependence who presented to the emergency department with complaints of " my chest is hurting and my heart is beating fast", shortness of breath, sudden onset of chest pain rated 8/10 which is constant nature and associated with shortness of breath which is not relieved with rest or worsened with exertion, chest palpitations, decreased exercise tolerance, dyspnea on exertion, dyspnea at rest subjective weight gain over the past week via EMS. In the emergency department patient had a ECG which revealed atrial fibrillation and clinical symptoms consistent with CHF compensation. Patient was admitted to the ICU on a Cardizem drip with consults to nephrology and cardiology. On 03/10 patient was titrated off Cardizem drip and had hemodialysis overnight with removal of 2 L. On 03/11 patient remained stable and was given orders to transfer to telemetry. This morning patient complains of intermittent chest pain rated at 10/10 and has been receiving chronic chronic narcotics. Patient also complains of constipation. Given medical magnesia and MiraLAX. Patient will be discharged home with an outpatient follow up with cardiology where she will be evaluated for atrial flutter ablation and further ischemic work-up. She will need to follow-up with [facility], Dr. Brown in 7 days. Assessment and plan: Neuro: h/o CVA, bipolar disorder, nicotine dependence, neuropathy -Follow-up with primary care physician and resume home antipsychotic medications -Maintain sleep-wake cycle -Smoking cessation counseling provided -Continue Lipitor, aspirin and gabapentin Cardiac: Afib with RVR, h/o CAP s/p stents to mid and distal LAD -Cardiology consulted, appreciate recommendations -per cardiology: The stents where patent on the repeat cardiac catheterization 4 years ago. Serial left ventricular function assessments have recorded normal ventricular ejection fraction 50 to 55%. -Blood pressure monitoring per primary care physician instructions -Patient will be discharged as she is deemed stable from cardiology standpoint -EP evaluation outpatient -Continue as needed nitroglycerin, scheduled metoprolol, Cozaar, Imdur, hydral azine, Lipitor, Eliquis, amiodarone Respiratory: Nicotine abuse -Tobacco cessation counseling provided GI: Protein calorie malnutrition -24 hours + 450 mL -PPI -Continue cardiac diet -Continue nutrition supplementation -BR: Senokot, miralax : ESRD on HD ([facility]), Slight hyponatremia, hyperkalemia -Nephrology consulted, appreciate recommendations -Continue outpatient hemodialysis Endo: Remote history DM -Per patient patient is no longer on medications for diabetes mellitus -Continue CC cardiac diet -Follow-up with primary care physician Disposition: 30 STILL A PATIENT Final Discharge Diagnosis (Prints w/discharge instructions): Afib with RVR, nicotine abuse, Slight hyponatremia, hyperkalemia, Protein calorie malnutrition. h/o CVA, bipolar disorder, nicotine dependence, neuropathy, Afib with RVR, h/o CAD s/p stents to mid and distal LAD, ESRD on HD ([facility]), Remote history DM Time spent for discharge: 60 Core Measure Documentation - Palliative Care Palliative Care/ Comfort Measures: Not Applicable - Core Measures Any of the following diagnoses?: history only Exam - Constitutional Vitals: Temp Pulse Resp BP Pulse Ox 97.1 F L 70 15 139/77 97 03/12/22 08:00 03/12/22 10:00 03/12/22 11:14 03/12/22 10:00 03/12/22 10:00 General appearance: Present: no acute distress, mild distress - EENT Eyes: Present: PERRL, EOM intact ENT: hearing intact, clear oral mucosa, dentition normal - Neck Neck: Present: supple, normal ROM - Respiratory Respiratory effort: normal Respiratory: bilateral: CTA - Cardiovascular Rhythm: regular Heart Sounds: Present: S1 & S2. Absent: systolic murmur, diastolic murmur - Extremities Extremities: no ischemia, pulses intact, pulses symmetrical, No edema, normal temperature, normal color, Full ROM Peripheral Pulses: within normal limits - Abdominal General gastrointestinal: Present: soft, non-tender, non-distended, normal bowel sounds - Integumentary Integumentary: Present: clear, warm, dry - Musculoskeletal Musculoskeletal: left sided weakness - Psychiatric Psychiatric: appropriate mood/affect, cooperative - Neurologic Neurologic: CNII-XII intact, no focal deficits, moves all extremities - Allied Health Allied health notes reviewed: nursing Plan Activity: advance as tolerated Diet: low cholesterol, low salt, diabetic, low carbohydrate Special Instructions: record daily BP diary, smoking cessation Follow up with: VICENTA CUELLO DO [Primary Care Provider] - 3-5 Days SEBAS DELGADO MD [Staff Physician] - 3-5 Days DEV BROWN MD [Staff Physician] - 7 Days CARMEN SOTELO MD [Staff Physician] - 7 Days Prescriptions: AtorvaSTATin [Lipitor] 20 mg PO QHS #30 tablet hydrALAZINE [Apresoline TAB] 50 mg PO Q8HR #120 tablet Amiodarone [Cordarone 200 MG TAB] 200 mg PO BID #60 tablet Losartan [Cozaar] 50 mg PO QDAY #30 tab Apixaban [Eliquis] 5 mg PO BID #60 tab ISOSORBIDE MONOnitrate [Imdur ER] 60 mg PO QDAY #30 tablet Metoprolol [Lopressor TAB] 100 mg PO BID #60 tablet polyethylene glycoL 3350 [Miralax 3350] 17 gm PO QDAY #15 powd.pack Nitroglycerin [Nitrostat] 0.4 mg SL .Q5MIN PRN #15 tablet PRN Reason: Chest Pain Sennosides/Docusate [Senokot S] 1 tab PO DAILY #30 tablet traMADoL [Ultram 50 MG tab] 50 mg PO Q6H PRN #5 tablet PRN Reason: Pain, Moderate (4-6)
[2022-03-12] MEDS ORDERED: AMIODARONE 150 MG in DEXTROSE 5% IN WATER 100 ML IV ONE (13:51)
--- NOTE | 2022-03-12 13:54 | Progress Note ---
Assessment and Plan - Patient Problems (1) Paroxysmal atrial flutter Current Visit: Yes Status: Acute Plan to address problem: Patient has a longstanding history of paroxysmal atrial flutter on rhythm control and chronic Eliquis. Current symptoms of chest pressure and palpitations appear associated with a recurrence of her atrial flutter, she is asymptomatic after resolution of the atrial tachyarrhythmia. We will increase amiodarone therapy for suppression of atrial flutter. As outpatient, we will evaluate the patient for atrial flutter ablation, she will follow-up in our office in 7 days. (2) Coronary artery disease Current Visit: Yes Status: Acute Plan to address problem: Patient has longstanding coronary artery disease with LAD stents which were widely patent on a follow-up cardiac catheterization just 4 years ago. There are no symptoms of recurrent ischemia at this time, her current symptoms were associated with a recurrence of her paroxysmal atrial flutter. She will continue her outpatient follow-up in 5 to 7 days after discharge, since she is now relocated back to this area. Any further ischemic work-up will be done in the outpatient setting. Subjective Date of service: 03/12/22 Principal diagnosis: A-Fib with RVR; AE-CHF; AHRF; ESRD on dialysis; HTN; CAD; DM II Interval history: Patient is comfortable, no acute distress, she currently is in a dual paced rhythm, and asymptomatic. Objective Vital Signs Temp Pulse Pulse Pulse Pulse Resp Resp 03/12/22 11:14 15 03/12/22 11:08 15 03/12/22 10:00 70 15 03/12/22 09:04 70 03/12/22 09:03 70 03/12/22 09:00 70 17 03/12/22 08:00 97.1 F L 70 70 70 70 14 13 03/12/22 07:16 70 03/12/22 07:14 13 03/12/22 07:00 71 14 03/12/22 06:00 70 14 03/12/22 05:00 73 16 03/12/22 04:00 97.8 F 73 72 70 70 14 03/12/22 03:00 84 17 03/12/22 02:00 85 15 03/12/22 01:00 71 17 03/12/22 00:00 98.4 F 72 81 81 81 16 03/11/22 23:00 81 14 03/11/22 22:00 90 14 03/11/22 21:21 81 03/11/22 21:15 03/11/22 21:00 86 13 03/11/22 20:12 79 16 03/11/22 20:00 98.3 F 85 70 70 70 23 03/11/22 19:00 82 19 03/11/22 18:00 106 H 15 03/11/22 17:00 71 14 03/11/22 16:01 84 14 03/11/22 16:00 98.2 F 81 81 81 16 03/11/22 15:46 74 03/11/22 15:01 85 13 03/11/22 14:00 74 13 Resp BP Pulse Ox 03/12/22 11:14 03/12/22 11:08 15 03/12/22 10:00 139/77 97 03/12/22 09:04 138/76 03/12/22 09:03 138/76 03/12/22 09:00 138/76 98 03/12/22 08:00 151/84 100 03/12/22 07:16 140/79 03/12/22 07:14 03/12/22 07:00 136/77 97 03/12/22 06:00 135/77 97 03/12/22 05:00 137/76 95 03/12/22 04:00 130/76 98 03/12/22 03:00 106/60 95 03/12/22 02:00 122/74 95 03/12/22 01:00 140/71 97 03/12/22 00:00 141/83 98 03/11/22 23:00 128/75 96 03/11/22 22:00 121/69 97 02 21:21 122/75 03/11/22 21:15 97 03/11/22 21:00 134/83 97 03/11/22 20:12 118/63 96 03/11/22 20:00 118/63 95 03/11/22 19:00 112/79 96 03/11/22 18:00 126/81 100 03/11/22 17:00 135/81 91 03/11/22 16:01 121/84 99 03/11/22 16:00 98 03/11/22 15:46 137/77 05/02/22 15:01 107/73 97 05/02/22 14:00 115/73 96 - Physical Examination General: No Apparent Distress HEENT: Positive: PERRL Neck: Positive: neck supple Cardiac: Positive: Reg Rate and Rhythm Lungs: Positive: Decreased Breath Sounds Neuro: Positive: Grossly Intact Abdomen: Positive: Soft Skin: Positive: Clear Extremities: Absent: edema - Labs and Meds Cardiac Enzymes 03/11/22 03/12/22 Range/Units 17:10 00:50 CK-MB (CK-2) 1.3 1.1 (0.0-4.0) ng/mL Comprehensive Metabolic Panel 03/12/22 Range/Units 04:52 Sodium 136 L (137-145) mmol/L Potassium 5.2 H (3.6-5.0) mmol/L Chloride 98.4 (98-107) mmol/L Carbon Dioxide 25 (22-30) mmol/L BUN 49 H (7-17) mg/dL Creatinine 4.5 H (0.6-1.2) mg/dL Glucose 91 (65-100) mg/dL Calcium 8.5 (8.4-10.2) mg/dL Pacemaker: atrial pacing w/capture - Allied health notes Allied health notes reviewed: nursing
[2022-03-12] MEDS ORDERED: AMIODARONE 150 MG in DEXTROSE 5% IN WATER 97 ML IV SCH (14:15)
[2022-03-12] MEDS: INSULIN LISPRO 100 UNIT/ML SUB-Q SCH (17:15)
[2022-03-12 19:10] VITALS: BP 184/88
== END 2022-03-12 20:20 | disposition home or self-care (01) | DRG 308 ==
LOC: ED 08:01 → 4A 14:00 → CC1 14:43
PROVIDERS: ADMIT Internal Medicine; ATTEND Internal Medicine
PROC: 5A1D70Z Performance of Urinary Filtration, Intermittent, Less than 6 Hours Per Day (ICD-10-PCS; principal; 2022-03-09)
PROC: 5A1D70Z Performance of Urinary Filtration, Intermittent, Less than 6 Hours Per Day (ICD-10-PCS; 2022-03-10)
PROC: 5A1D70Z Performance of Urinary Filtration, Intermittent, Less than 6 Hours Per Day (ICD-10-PCS; 2022-03-12)
DX: I48.92 Unspecified atrial flutter (principal); N18.6 End stage renal disease; I50.33 Acute on chronic diastolic (congestive) heart failure; J96.01 Acute respiratory failure with hypoxia; I13.2 Hypertensive heart and chronic kidney disease with heart failure and with stage 5 chronic kidney disease, or end stage renal disease; I69.351 Hemiplegia and hemiparesis following cerebral infarction affecting right dominant side; J44.1 Chronic obstructive pulmonary disease with (acute) exacerbation; E46 Unspecified protein-calorie malnutrition; E87.1 Hypo-osmolality and hyponatremia; I25.10 Atherosclerotic heart disease of native coronary artery without angina pectoris; I48.20 Chronic atrial fibrillation, unspecified; I25.2 Old myocardial infarction; E11.22 Type 2 diabetes mellitus with diabetic chronic kidney disease; E78.5 Hyperlipidemia, unspecified; E11.40 Type 2 diabetes mellitus with diabetic neuropathy, unspecified; E87.5 Hyperkalemia; E78.2 Mixed hyperlipidemia; Z79.899 Other long term (current) drug therapy; F31.9 Bipolar disorder, unspecified; F20.9 Schizophrenia, unspecified; E78.00 Pure hypercholesterolemia, unspecified; Z79.01 Long term (current) use of anticoagulants; Z88.6 Allergy status to analgesic agent; Z91.013 Allergy to seafood; Z91.018 Allergy to other foods; Z99.2 Dependence on renal dialysis; Z95.0 Presence of cardiac pacemaker; Z79.82 Long term (current) use of aspirin; F17.200 Nicotine dependence, unspecified, uncomplicated; Z83.3 Family history of diabetes mellitus; Z82.49 Family history of ischemic heart disease and other diseases of the circulatory system; Z71.6 Tobacco abuse counseling; Z98.61 Coronary angioplasty status; Z68.20 Body mass index [BMI] 20.0-20.9, adult
CPT/HCPCS: 36415; 71046; 80048; 80053; 82550; 82553; 82962; 83036; 83735; 83880; 84100; 84484; 85025; 87641; 93005; 94640; 94644; 94760; 96374; 96375; 96376; 99291; G0378; J3490; J7060; J0282; J1170; J1644; J2270; J2930

== ENCOUNTER 2022-03-14 17:44 | Emergency (ER) | payer MEDICARE ==
[2022-03-14 18:25] VITALS: BP 99/64
--- NOTE | 2022-03-15 10:14 | Electrocardiograph Report ---
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
== END 2022-03-15 22:00 | disposition left against medical advice (07) ==
LOC: ED 17:44
DX: R07.9 Chest pain, unspecified (principal); Z53.21 Procedure and treatment not carried out due to patient leaving prior to being seen by health care provider
CPT/HCPCS: 93005

== ENCOUNTER 2022-03-19 13:38 | Emergency (ER) | payer MEDICARE ==
[2022-03-19 13:41] VITALS: BP 152/80
== END 2022-03-19 19:00 | disposition left against medical advice (07) ==
LOC: ED 13:38
DX: R07.9 Chest pain, unspecified (principal); Z53.21 Procedure and treatment not carried out due to patient leaving prior to being seen by health care provider
CPT/HCPCS: 93005

== ENCOUNTER 2022-03-30 08:36 | Emergency (ER) | payer MEDICARE ==
[2022-03-30 09:04] VITALS: BP 156/89
[2022-03-30] MEDS ORDERED: ASPIRIN 325 MG TAB PO ONE (09:04)
--- NOTE | 2022-03-30 10:02 | XRay Report ---
CHEST 2 VIEWS INDICATION / CLINICAL INFORMATION: chest pain. COMPARISON: Prior chest CT and chest radiograph 03/21/2022 FINDINGS: SUPPORT DEVICES: PermCath and cardiac pacemaker present, stable in position. HEART / MEDIASTINUM: No significant abnormality. LUNGS / PLEURA: No significant pulmonary or pleural abnormality. No pneumothorax. Previously noted mi ld interstitial pulmonary edema on recent prior chest radiograph has resolved. No pleural effusion. ADDITIONAL FINDINGS: No significant additional findings. IMPRESSION: 1. No acute findings. Signer Name: Louise Amador MD Signed: 03/30/2022 9:58 AM Workstation Name: [id number]
[2022-03-30 12:30] LABS: Basophils # (Auto) 0.1 K/mm3 (0.0-0.1); Basophils % (Auto) 0.6 % (0.0-1.8); Eosinophils # (Auto) 0.4 K/mm3 (0.0-0.4); Eosinophils % (Auto) 3.7 % (0.0-4.3); Hematocrit 40.2 % (30.3-42.9); Hemoglobin 13.1 gm/dl (10.1-14.3); Lymphocytes % (Auto) 20.1 % (13.4-35.0); Mean Corpuscular HGB Conc 33 % (30-34); Mean Corpuscular Volume 95 fl (79-97); Monocytes # (Auto) 0.6 K/mm3 (0.0-0.8); Monocytes % (Auto) 6.1 % (0.0-7.3); Platelet Count 154 K/mm3 (140-440); Red Blood Count 4.24 M/mm3 (3.65-5.03); Red Cell Distribution Width 18.9 % (13.2-15.2)
[2022-03-30 13:27] LABS: Alanine Aminotransferase < 5 units/L (7-56); Albumin 4.7 g/dL (3.9-5); BUN/Creatinine Ratio 8; Blood Urea Nitrogen 39 mg/dL (7-17); Calcium 9.6 mg/dL (8.4-10.2); Hemolysis Index 20
--- NOTE | 2022-03-31 18:15 | Electrocardiograph Report ---
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
== END 2022-03-31 13:56 | disposition left against medical advice (07) ==
LOC: ED 08:36
DX: R07.9 Chest pain, unspecified (principal); Z53.21 Procedure and treatment not carried out due to patient leaving prior to being seen by health care provider
CPT/HCPCS: 36415; 71046; 80053; 84484; 85025; 93005

== ENCOUNTER 2022-04-01 17:46 | Observation (INO) | payer MEDICARE ==
[2022-04-01] MEDS ORDERED: ASPIRIN 81 MG TAB CHEW PO ONE (18:21)
[2022-04-01 18:54] LABS: Basophils # (Auto) 0.1 K/mm3 (0.0-0.1); Basophils % (Auto) 0.7 % (0.0-1.8); Eosinophils # (Auto) 0.2 K/mm3 (0.0-0.4); Eosinophils % (Auto) 1.5 % (0.0-4.3); Hematocrit 34.4 % (30.3-42.9); Hemoglobin 11.1 gm/dl (10.1-14.3); Lymphocytes # (Auto) 1.4 K/mm3 (1.2-5.4); Lymphocytes % (Auto) 13.8 % (13.4-35.0); Mean Corpuscular HGB Conc 32 % (30-34); Mean Corpuscular Volume 95 fl (79-97); Monocytes # (Auto) 0.7 K/mm3 (0.0-0.8); Monocytes % (Auto) 6.9 % (0.0-7.3); Platelet Count 153 K/mm3 (140-440); Red Blood Count 3.63 M/mm3 (3.65-5.03); Red Cell Distribution Width 18.3 % (13.2-15.2)
--- NOTE | 2022-04-01 18:55 | XRay Report ---
CHEST 1 VIEW 04/01/2022 6:35 PM INDICATION / CLINICAL INFORMATION: Chest Pain. COMPARISON: 03/30/2022 FINDINGS: SUPPORT DEVICES: Permacath appears unchanged. Pacemaker appears unchanged. HEART / MEDIASTINUM: Unchanged LUNGS / PLEURA: There is mild venous congestion. No focal infiltrate is seen. No pneumothorax. ADDITIONAL FINDINGS: No significant additional findings. IMPRESSION: 1. There is mild venous congestion. Signer Name: Pankaj Zayas MD Signed: 04/01/2022 6:51 PM Workstation Name: [id number]
[2022-04-01 19:08] LABS: Alanine Aminotransferase 39 units/L (7-56); Albumin 4.3 g/dL (3.9-5); Blood Urea Nitrogen 64 mg/dL (7-17); Hemolysis Index 11
[2022-04-01 19:13] LABS: BUN/Creatinine Ratio 13
[2022-04-01] MEDS ORDERED: NITROGLYCERIN 0.4 MG TAB SUBL SL ONE ×2 (20:29→21:27)
[2022-04-01] MEDS ORDERED: IPRATROPIUM/ALBUTEROL SULFATE 3 ML AMPUL.NEB IH ONE (20:30)
[2022-04-01] MEDS ORDERED: methylPREDNISolone Sod Succinate 125 MG/2 ML INJ IV ONE (20:31)
--- NOTE | 2022-04-01 20:42 | Emergency Department Report ---
ED General Adult HPI - General Chief complaint: Chest Pain Stated complaint: CHEST PAIN PUI?: No Time Seen by Provider: 04/01/22 20:18 Source: patient, EMS Mode of arrival: Stretcher Limitations: No Limitations - History of Present Illness Initial comments: This is a 67-year-old female with multiple medical comorbidities who presents for evaluation of multiple complaints including dry cough, wheezing, chest pain, shortness of breath. Patient states she did not missed her last hemodialysis session 2 days ago and last went to dialysis on , which was 5 days ago. She states that "every time anxious to go to see a tin dipper or anybody I end up here in the hospital for chest pain." Patient pain has been constant pressure-like nonradiating. No aggravators no alleviators. She states she is taking Advil at home without improvement in her symptoms. Pain currently 10 out of 10 Patient states she smokes tobacco daily. She denies any illicit drug usage. Pain currently 10 out of 10. Patient states she is not taking any other medication for management of her pain. -: days(s) Location: chest Radiation: non-radiation Severity scale (0 -10): 8 Quality: aching, constant Consistency: constant Improves with: none Worsens with: none Associated Symptoms: cough, malaise, shortness of breath, other (Wheezing) - Related Data Home Medications Medication Instructions Recorded Confirmed Last Taken Gabapentin 100 mg PO BID 03/02/22 03/21/22 Unknown Nitroglycerin [Nitro-Bid] 0.1 mg TRANSDERMA Q6HR PRN 03/02/22 03/21/22 Unknown Pantoprazole [Protonix TAB] 40 mg PO QDAY 03/02/22 03/21/22 03/02/22 10:00 Sennosides/Docusate Sodium [Senna 1 cap PO DAILY 03/10/22 03/21/22 Unknown Plus 8.6-50 mg Softgel] methIMAzole [Methimazole] 10 mg PO TID 03/10/22 03/21/22 Unknown Previous Rx's Medication Instructions Recorded Last Taken Type Acetaminophen [Acetaminophen TAB] 650 mg PO Q6H PRN tablet 03/12/22 Unknown Rx AtorvaSTATin [Lipitor] 20 mg PO QHS #30 tablet 03/12/22 Unknown Rx ISOSORBIDE MONOnitrate [Imdur ER] 60 mg PO QDAY #30 tablet 03/12/22 Unknown Rx Losartan [Cozaar] 50 mg PO QDAY #30 tab 03/12/22 Unknown Rx Magnesium Hydroxide [Milk of 30 ml PO Q4H PRN oral.liqd 03/12/22 Unknown Rx Magnesia] Metoprolol [Lopressor TAB] 100 mg PO BID #60 tablet 03/12/22 Unknown Rx Nitroglycerin [Nitrostat] 0.4 mg SL .Q5MIN PRN #15 tablet 03/12/22 Unknown Rx Sennosides/Docusate [Senokot S] 1 tab PO DAILY #30 tablet 03/12/22 Unknown Rx hydrALAZINE [Apresoline TAB] 50 mg PO Q8HR #120 tablet 03/12/22 Unknown Rx polyethylene glycoL 3350 [Miralax 17 gm PO QDAY #15 powd.pack 03/12/22 Unknown Rx 3350] traMADoL [Ultram 50 MG tab] 50 mg PO Q6H PRN #5 tablet 03/12/22 Unknown Rx Amiodarone [Cordarone 200 MG TAB] 200 mg PO . DIRECTED #60 tablet 03/23/22 Unknown Rx Apixaban [Eliquis] 2.5 mg PO BID #60 tab 03/23/22 Unknown Rx Prednisone [predniSONE 5 mg (6-Day 5 mg PO .TAPER #1 03/23/22 Unknown Rx Pack, 21 Tabs)] Allergies Allergy/AdvReac Type Severity Reaction Status Date / Time Iodinated Contrast Media AdvReac Intermediate Swelling Verified 03/21/22 07:58 apple AdvReac Hives Verified 03/21/22 07:58 shell fish Allergy Swelling Uncoded 03/21/22 07:58 ED Review of Systems ROS: Stated complaint: CHEST PAIN Other details as noted in HPI Comment: All other systems reviewed and negative Constitutional: see HPI Eyes: as per HPI ENT: as per HPI Respiratory: cough, shortness of breath, wheezing Cardiovascular: chest pain. denies: palpitations, dyspnea on exertion, orthopnea, edema, syncope, paroxysmal nocturnal dyspnea Endocrine: no symptoms reported Gastrointestinal: as per HPI. denies: abdominal pain, nausea, vomiting, diarrhea, constipation, hematemesis, melena, hematochezia Genitourinary: denies: urgency, dysuria, frequency, hematuria, discharge, abnormal menses, dyspareunia Musculoskeletal: denies: back pain, joint swelling, arthralgia, myalgia, other Skin: denies: rash, lesions, change in color, change in hair/nails, pruritus Neurological: denies: headache, weakness, numbness, paresthesias, confusion, abnormal gait, vertigo, other Psychiatric: denies: as per HPI Hematological/Lymphatic: denies: as per HPI ED Past Medical Hx - Past Medical History Hx Hypertension: Yes Hx CVA: Yes (right sided weakness) Hx Heart Attack/AMI: Yes (1 stent) Hx Congestive Heart Failure: Yes Hx Diabetes: Yes Hx Renal Disease: Yes (RENAL INSUFFICIENCY- stent left kidney) Hx Sickle Cell Disease: No Hx Kidney Stones: No Hx Psychiatric Treatment: Yes (BIPOLAR/SCHIZOPHRENIA) Hx COPD: Yes Hx HIV: No Additional medical history: HIGH CHOLESTEROL - Surgical History Hx Coronary Stent: Yes Hx Pacemaker: Yes Additional Surgical History: stent placement x 2 in 2014, knee surgery 11/2017 - Social History Smoking Status: Current Every Day Smoker - Medications Home Medications: Home Medications Medication Instructions Recorded Confirmed Last Taken Type Gabapentin 100 mg PO BID 03/02/22 03/21/22 Unknown History Nitroglycerin [Nitro-Bid] 0.1 mg TRANSDERMA Q6HR PRN 03/02/22 03/21/22 Unknown History Pantoprazole [Protonix TAB] 40 mg PO QDAY 03/02/22 03/21/22 03/02/22 10:00 History Sennosides/Docusate Sodium [Senna 1 cap PO DAILY 03/10/22 03/21/22 Unknown History Plus 8.6-50 mg Softgel] methIMAzole [Methimazole] 10 mg PO TID 03/10/22 03/21/22 Unknown History Acetaminophen [Acetaminophen TAB] 650 mg PO Q6H PRN tablet 03/12/22 03/21/22 Unknown Rx AtorvaSTATin [Lipitor] 20 mg PO QHS #30 tablet 03/12/22 03/21/22 Unknown Rx ISOSORBIDE MONOnitrate [Imdur ER] 60 mg PO QDAY #30 tablet 03/12/22 03/21/22 Unknown Rx Losartan [Cozaar] 50 mg PO QDAY #30 tab 03/12/22 03/21/22 Unknown Rx Magnesium Hydroxide [Milk of 30 ml PO Q4H PRN oral.liqd 03/12/22 03/21/22 Unknown Rx Magnesia] Metoprolol [Lopressor TAB] 100 mg PO BID #60 tablet 03/12/22 03/21/22 Unknown Rx Nitroglycerin [Nitrostat] 0.4 mg SL .Q5MIN PRN #15 tablet 03/12/22 03/21/22 Unknown Rx Sennosides/Docusate [Senokot S] 1 tab PO DAILY #30 tablet 03/12/22 03/21/22 Unknown Rx hydrALAZINE [Apresoline TAB] 50 mg PO Q8HR #120 tablet 03/12/22 03/21/22 Unknown Rx polyethylene glycoL 3350 [Miralax 17 gm PO QDAY #15 powd.pack 03/12/22 03/21/22 Unknown Rx 3350] traMADoL [Ultram 50 MG tab] 50 mg PO Q6H PRN #5 tablet 03/12/22 03/21/22 Unknown Rx Amiodarone [Cordarone 200 MG TAB] 200 mg PO . DIRECTED #60 tablet 03/23/22 Unknown Rx Apixaban [Eliquis] 2.5 mg PO BID #60 tab 03/23/22 Unknown Rx Prednisone [predniSONE 5 mg (6-Day 5 mg PO .TAPER #1 03/23/22 Unknown Rx Pack, 21 Tabs)] ED Physical Exam - General Limitations: No Limitations General appearance: alert, in no apparent distress - Head Head exam: Present: atraumatic, normocephalic, normal inspection - Eye Eye exam: Present: normal appearance, PERRL, EOMI, other (Sclera anicteric) Pupils: Present: normal accommodation - ENT ENT exam: Present: normal exam, normal orophraynx - Neck Neck exam: Present: normal inspection, full ROM. Absent: tenderness, meningis mus, lymphadenopathy, thyromegaly, other - Respiratory Respiratory exam: Present: wheezes, prolonged expiratory. Absent: respiratory distress, rales, rhonchi, stridor, chest wall tenderness, accessory muscle use, decreased breath sounds - Cardiovascular Cardiovascular Exam: Present: normal rhythm, tachycardia. Absent: regular rate, bradycardia, irregular rhythm, normal heart sounds, systolic murmur, diastolic murmur, rubs, gallop - GI/Abdominal GI/Abdominal exam: Present: soft, normal bowel sounds. Absent: distended, tenderness, guarding, rebound, rigid, diminished bowel sounds, hyperactive bowel sounds, hypoactive bowel sounds, organomegaly, mass, bruit, pulsatile mass, hernia - Rectal Rectal exam: Present: deferred - Extremities Exam Extremities exam: Present: normal inspection, full ROM, normal capillary refill. Absent: pedal edema, joint swelling, calf tenderness - Back Exam Back exam: Present: normal inspection, full ROM. Absent: tenderness, CVA tenderness (R), CVA tenderness (L), muscle spasm, paraspinal tenderness - Neurological Exam Neurological exam: Present: alert, oriented X3, CN II-XII intact, normal gait, reflexes normal. Absent: abnormal gait, motor sensory deficit - Psychiatric Psychiatric exam: Present: normal affect, normal mood. Absent: depressed, agitated, anxious, flat affect, manic, homicidal ideation, suicidal ideation - Skin Skin exam: Present: warm, dry, intact, normal color. Absent: rash, cyanosis, diaphoretic, erythema, urticaria, vesicles, petechiae, pallor, abrasion, ecchymosis ED Course Vital Signs 04/01/22 04/01/22 04/01/22 17:54 18:40 19:35 Temperature 98.3 F 98.5 F Pulse Rate 100 H 113 H Pulse Rate [ Anterior Bilateral] Respiratory 20 21 Rate Respiratory Rate [Anterior Bilateral] Blood Pressure Blood Pressure 176/89 177/99 [Left] O2 Sat by Pulse 100 96 100 Oximetry 04/01/22 04/01/22 04/01/22 19:46 20:00 20:16 Temperature Pulse Rate 115 H 106 H 116 H Pulse Rate [ Anterior Bilateral] Respiratory 25 H 22 19 Rate Respiratory Rate [Anterior Bilateral] Blood Pressure 177/99 178/107 179/96 Blood Pressure [Left] O2 Sat by Pulse 100 100 100 Oximetry 04/01/22 04/01/22 04/01/22 20:30 20:44 21:00 Temperature Pulse Rate 108 H 100 H 118 H Pulse Rate [ Anterior Bilateral] Respiratory 22 23 Rate Respiratory Rate [Anterior Bilateral] Blood Pressure 164/138 180/108 173/112 Blood Pressure [Left] O2 Sat by Pulse 100 100 Oximetry 04/01/22 04/01/22 04/01/22 21:16 21:21 21:30 Temperature Pulse Rate 93 H 103 H Pulse Rate [ 109 H Anterior Bilateral] Respiratory 23 20 Rate Respiratory 22 Rate [Anterior Bilateral] Blood Pressure 164/102 182/96 Blood Pressure [Left] O2 Sat by Pulse 100 100 Oximetry 04/01/22 04/01/22 04/01/22 21:46 22:00 22:16 Temperature Pulse Rate 111 H 118 H 111 H Pulse Rate [ Anterior Bilateral] Respiratory 21 20 20 Rate Respiratory Rate [Anterior Bilateral] Blood Pressure 186/94 166/121 165/93 Blood Pressure [Left] O2 Sat by Pulse 100 100 100 Oximetry 04/01/22 04/01/22 04/01/22 22:30 22:46 23:00 Temperature Pulse Rate 100 H 101 H 108 H Pulse Rate [ Anterior Bilateral] Respiratory 21 20 17 Rate Respiratory Rate [Anterior Bilateral] Blood Pressure 170/95 181/100 180/99 Blood Pressure [Left] O2 Sat by Pulse 100 100 100 Oximetry - Reevaluation(s) Reevaluation #1: 04/01/22 23:15 pt continues to c/o chest pain. States Nitroglycerin x 2 did not help. Will give order additional analgesics. ED Medical Decision Making - Lab Data Result diagrams: 04/01/22 18:36 04/01/22 18:36 - EKG Data EKG shows normal: sinus rhythm Rate: tachycardia - EKG Data When compared to previous EKG there are: no significant change Interpretation: no acute changes - Radiology Data Radiology results: report reviewed - Medical Decision Making 67-year-old female with multiple medical comorbidities presents for evaluation of chest pain. Vitals reviewed. Troponin x2 negative. Remainder of labs unremarkable as well except for patient's creatinine which is consistent with her end-stage renal disease. Chest x-ray unremarkable. Patient given nitroglycerin x2 but reports her pain has not improved. Heart score is 3. Case reviewed with paper baling machine operator, Dr. Islas. Per my recommendation, pt will need overnight admission for observation, r/o ACS. Care of this pateint has been transferred over to him. Critical care attestation.: If time is entered above; I have spent that time in minutes in the direct care of this critically ill patient, excluding procedure time. ED Disposition Clinical Impression: Chest pain Qualifiers: Chest pain type: unspecified Qualified Code(s): R07.9 - Chest pain, unspecified Disposition: ADMITTED INPATIENT Is pt being admited?: Yes Does the pt Need Aspirin: No Condition: Stable Instructions: Nonspecific Chest Pain, Adult
[2022-04-01] MEDS ORDERED: cloNIDine 0.1 MG TAB PO ONE (23:36)
[2022-04-02] MEDS ORDERED: traMADol 50 MG TAB PO PRN (01:01)
[2022-04-02] MEDS ORDERED: MORPHINE 4 MG/1 ML INJ IV PRN (01:01)
[2022-04-02] MEDS ORDERED: ACETAMINOPHEN 325 MG TAB PO PRN ×2 (01:01)
[2022-04-02] MEDS ORDERED: ONDANSETRON 4 MG/2 ML INJ IV PRN (01:01)
[2022-04-02] MEDS ORDERED: MORPHINE 2 MG/1 ML INJ IV PRN (01:01)
[2022-04-02] MEDS ORDERED: DEXTROSE 50% IN WATER (25GM) 50 ML SYRINGE IV PRN (01:01)
[2022-04-02] MEDS ORDERED: MAGNESIUM HYDROXIDE (MOM) ORAL LIQD UDC PO PRN (01:01)
--- NOTE | 2022-04-02 01:13 | History and Physical Report ---
History of Present Illness Date of examination: 04/02/22 Date of admission: 04/02/2022 Chief complaint: Chest pain History of present illness: 67-year-old female with known history of end-stage renal disease, history of CVA, hyperlipidemia, presenting to the emergency room today complaining of chest pain, shortness of breath with some dry cough. She states that chest pain is left-sided. No known relieving or exacerbating factor. No radiation. Patient has been seen here multiple occasions for similar complaints. Upon arrival in the emergency room patient was found to be quite tachycardic and also had elevated blood pressure. Work-up in the emergency room today, chest x-ray reveals mild venous congestion. Troponins were essentially negative. BUN of 64 and creatinine of 5.0. Patient had a stress test sometime in January 2022 which did not reveal any acute abnormality. Past History Past Medical History: acute MS, COPD, diabetes, dialysis, ESRD, heart failure, hypertension, hyperlipidemia, stroke (With right-sided weakness), other (Bipolar disorder, schizophrenia) Past Surgical History: PTCA, Other (Pacemaker placement, knee surgery in November 2017) Social history: smoking (Current daily smoker) Family history: no significant family history Medications and Allergies Allergies Allergy/AdvReac Type Severity Reaction Status Date / Time Iodinated Contrast Media AdvReac Intermediate Swelling Verified 03/21/22 07:58 apple AdvReac Hives Verified 03/21/22 07:58 shell fish Allergy Swelling Uncoded 03/21/22 07:58 Home Medications Medication Instructions Recorded Confirmed Last Taken Type Gabapentin 100 mg PO BID 03/02/22 03/21/22 Unknown History Nitroglycerin [Nitro-Bid] 0.1 mg TRANSDERMA Q6HR PRN 03/02/22 03/21/22 Unknown History Pantoprazole [Protonix TAB] 40 mg PO QDAY 03/02/22 03/21/22 03/02/22 10:00 History Sennosides/Docusate Sodium [Senna 1 cap PO DAILY 03/10/22 03/21/22 Unknown History Plus 8.6-50 mg Softgel] methIMAzole [Methimazole] 10 mg PO TID 03/10/22 03/21/22 Unknown History Acetaminophen [Acetaminophen TAB] 650 mg PO Q6H PRN tablet 03/12/22 03/21/22 Unknown Rx AtorvaSTATin [Lipitor] 20 mg PO QHS #30 tablet 03/12/22 03/21/22 Unknown Rx ISOSORBIDE MONOnitrate [Imdur ER] 60 mg PO QDAY #30 tablet 03/12/22 03/21/22 Unknown Rx Losartan [Cozaar] 50 mg PO QDAY #30 tab 03/12/22 03/21/22 Unknown Rx Magnesium Hydroxide [Milk of 30 ml PO Q4H PRN oral.liqd 03/12/22 03/21/22 Unknown Rx Magnesia] Metoprolol [Lopressor TAB] 100 mg PO BID #60 tablet 03/12/22 03/21/22 Unknown Rx Nitroglycerin [Nitrostat] 0.4 mg SL .Q5MIN PRN #15 tablet 03/12/22 03/21/22 Unknown Rx Sennosides/Docusate [Senokot S] 1 tab PO DAILY #30 tablet 03/12/22 03/21/22 Unknown Rx hydrALAZINE [Apresoline TAB] 50 mg PO Q8HR #120 tablet 03/12/22 03/21/22 Unknown Rx polyethylene glycoL 3350 [Miralax 17 gm PO QDAY #15 powd.pack 03/12/22 03/21/22 Unknown Rx 3350] traMADoL [Ultram 50 MG tab] 50 mg PO Q6H PRN #5 tablet 03/12/22 03/21/22 Unknown Rx Amiodarone [Cordarone 200 MG TAB] 200 mg PO . DIRECTED #60 tablet 03/23/22 Unknown Rx Apixaban [Eliquis] 2.5 mg PO BID #60 tab 03/23/22 Unknown Rx Prednisone [predniSONE 5 mg (6-Day 5 mg PO .TAPER #1 03/23/22 Unknown Rx Pack, 21 Tabs)] Active Meds: Active Medications Methocarbamol (Methocarbamol 750 Mg Tab) 750 mg PO BID CHRISTEL Last Admin: 04/01/22 23:28 Dose: 750 mg Review of Systems Constitutional: no fever, no chills Ears, nose, mouth and throat: no nasal congestion, no sore throat Cardiovascular: chest pain, palpitations Respiratory: shortness of breath, no cough, no wheezing Gastrointestinal: no abdominal pain, no nausea, no vomiting, no diarrhea Genitourinary Female: no pelvic pain, no flank pain, no dysuria, no hematuria Musculoskeletal: no neck pain, no low back pain Integumentary: no rash, no pruritis Neurological: no headaches, no confusion Psychiatric: no anxiety, no depression Endocrine: no polydipsia, no polyuria, no nocturia Exam - Constitutional Vitals: Temp Pulse Resp BP Pulse Ox 98.5 F 111 H 19 148/86 100 04/01/22 19:35 04/02/22 00:16 04/02/22 00:16 04/02/22 00:16 04/02/22 00:16 General appearance: Present: no acute distress, well-nourished - EENT Eyes: Present: PERRL, EOM intact. Absent: scleral icterus ENT: hearing intact, clear oral mucosa, dentition normal - Neck Neck: Present: supple, normal ROM - Respiratory Respiratory effort: normal Respiratory: bilateral: CTA - Cardiovascular Rhythm: regular Heart Sounds: Present: S1 & S2. Absent: gallop, systolic murmur, diastolic murmur, rub, click - Extremities Extremities: no ischemia, pulses intact, pulses symmetrical, No edema, normal te mperature, normal color, Full ROM Peripheral Pulses: within normal limits - Abdominal General gastrointestinal: Present: soft, non-tender, non-distended, normal bowel sounds. Absent: mass - Integumentary Integumentary: Present: clear, warm, dry, normal turgor. Absent: rash - Musculoskeletal Musculoskeletal: strength equal bilaterally - Psychiatric Psychiatric: appropriate mood/affect, intact judgment & insight, memory intact, cooperative - Neurologic Neurologic: CNII-XII intact, no focal deficits, moves all extremities HEART Score - HEART Score Troponin: Troponin T 0.016 ng/mL (0.00-0.029) 04/02/22 00:08 Results - Labs CBC & Chem 7: 04/01/22 18:36 04/02/22 01:35 Labs: Abnormal lab results 04/01/22 04/01/22 Range/Units 18:36 18:36 RBC 3.63 L (3.65-5.03) M/mm3 RDW 18.3 H (13.2-15.2) % Seg Neutrophils % 77.1 H (40.0-70.0) % Seg Neutrophils # 7.9 H (1.8-7.7) K/mm3 BUN 64 H (7-17) mg/dL Creatinine 5.0 H (0.6-1.2) mg/dL Total Protein 6.0 L (6.3-8.2) g/dL Assessment and Plan - Patient Problems (1) Chest pain Current Visit: Yes Status: Acute Qualifiers: Chest pain type: unspecified Qualified Code(s): R07.9 - Chest pain, unspecified Plan to address problem: Patient admitted and placed on telemetry. Cardiac enzymes so far has been negative. Will continue patient on daily aspirin, sublingual nitroglycerin and IV morphine as needed for chest pain. Consult placed to cardiology for further evaluation and recommendations. (2) Bipolar disorder Current Visit: No Status: Acute Plan to address problem: We will resume routine home medications. (3) End-stage renal disease on hemodialysis Current Visit: No Status: Acute Plan to address problem: Consult placed to nephrology for possible dialysis. (4) Malignant hypertension Current Visit: No Status: Acute Plan to address problem: We will resume routine home medications and monitor vital signs closely. Patient will also be placed on IV hydralazine as needed for pressure control. (5) Hyperlipidemia Current Visit: No Status: Acute Qualifiers: Hyperlipidemia type: mixed hyperlipidemia Qualified Code(s): E78.2 - Mixed hyperlipidemia (6) Diabetes mellitus Current Visit: No Status: Chronic Plan to address problem: Patient placed on sliding scale insulin. We will monitor Accu-Cheks. (7) Nicotine dependence Current Visit: No Status: Acute Qualifiers: Nicotine product type: cigarettes Substance use status: in withdrawal Qualified Code(s): F17.213 - Nicotine dependence, cigarettes, with withdrawal Plan to address problem: Patient counseled on quitting tobacco abuse. We offer nicotine patch as needed. (8) DVT prophylaxis Current Visit: No Status: Acute Plan to address problem: Patient placed on subcutaneous heparin.
[2022-04-02 02:03] LABS: Calcium 9.4 mg/dL (8.4-10.2)
[2022-04-02] MEDS: MORPHINE 4 MG/1 ML INJ IV PRN ×3 (02:19→13:16)
[2022-04-02] MEDS: INSULIN LISPRO 100 UNIT/ML SUB-Q SCH ×3 (08:18→17:40)
[2022-04-02] MEDS ORDERED: LOSARTAN 50 MG TAB PO SCH (10:00)
[2022-04-02] MEDS ORDERED: SODIUM CHLORIDE 0.9% 100 ML IV PRN (10:00)
[2022-04-02] MEDS ORDERED: APIXABAN 2.5 MG TAB PO SCH (10:00)
[2022-04-02] MEDS ORDERED: NON-FORMULARY EACH (Apixaban 2.5 MG Tablet) PO SCH (10:00)
[2022-04-02] MEDS ORDERED: hydrALAZINE 20 MG/1 ML INJ IV PRN (10:00)
[2022-04-02] MEDS ORDERED: PANTOPRAZOLE 40 MG TAB PO SCH (10:00)
[2022-04-02] MEDS ORDERED: AMIODARONE 200 MG TAB PO SCH (10:00)
[2022-04-02] MEDS ORDERED: HEPARIN 10,000 UNITS/10 ML VIAL IV PRN (10:00)
--- NOTE | 2022-04-02 10:00 | Consultation ---
History of Present Illness - Reason for Consult Consult date: 04/02/22 end stage renal disease - History of Present Illness The patient is a 67 YO female known to our service with history of DM-2, HTN, HLD, Bipolar Disorder, CAD s/p Stent Placement, Paroxysmal atrial fibrillation, HFpEF, COPD, Anemia and ESRD on hemodialysis (TTS) who presented to [facility] ED 04/01/22 with c/o chest pain. Patient reports sharp, 10/10, midsternal chest pain, not radiating and started yesterday AM. She has had several admissions and ER visits with similar presentation and had extensive workup. Patient denies any N, V, D, abd pain, dizziness, cough, weakness, fever, chills, rash, blurry vision, hematuria or hemoptysis. Patient was admitted for further evaluation. Labs and imaging noted. Nephrology was consulted for ESRD management. Past History Past Medical History: acute HI, COPD, diabetes, dialysis, ESRD, heart failure, hypertension, hyperlipidemia, stroke (With right-sided weakness), other (Bipolar disorder, schizophrenia) Past Surgical History: PTCA, Other (Pacemaker placement, knee surgery in November 2017) Social history: smoking (Current daily smoker) Family history: no significant family history Medications and Allergies Allergies Allergy/AdvReac Type Severity Reaction Status Date / Time Iodinated Contrast Media AdvReac Intermediate Swelling Verified 03/21/22 07:58 apple AdvReac Hives Verified 03/21/22 07:58 shell fish Allergy Swelling Uncoded 03/21/22 07:58 Home Medications Medication Instructions Recorded Confirmed Last Taken Type Gabapentin 100 mg PO BID 03/02/22 03/21/22 Unknown History Nitroglycerin [Nitro-Bid] 0.1 mg TRANSDERMA Q6HR PRN 03/02/22 03/21/22 Unknown H istory Pantoprazole [Protonix TAB] 40 mg PO QDAY 03/02/22 03/21/22 03/02/22 10:00 History Sennosides/Docusate Sodium [Senna 1 cap PO DAILY 03/10/22 03/21/22 Unknown History Plus 8.6-50 mg Softgel] methIMAzole [Methimazole] 10 mg PO TID 03/10/22 03/21/22 Unknown History Acetaminophen [Acetaminophen TAB] 650 mg PO Q6H PRN tablet 03/12/22 03/21/22 Unknown Rx AtorvaSTATin [Lipitor] 20 mg PO QHS #30 tablet 03/12/22 03/21/22 Unknown Rx ISOSORBIDE MONOnitrate [Imdur ER] 60 mg PO QDAY #30 tablet 03/12/22 03/21/22 Unknown Rx Losartan [Cozaar] 50 mg PO QDAY #30 tab 03/12/22 03/21/22 Unknown Rx Magnesium Hydroxide [Milk of 30 ml PO Q4H PRN oral.liqd 03/12/22 03/21/22 Unknown Rx Magnesia] Metoprolol [Lopressor TAB] 100 mg PO BID #60 tablet 03/12/22 03/21/22 Unknown Rx Nitroglycerin [Nitrostat] 0.4 mg SL .Q5MIN PRN #15 tablet 03/12/22 03/21/22 Unknown Rx Sennosides/Docusate [Senokot S] 1 tab PO DAILY #30 tablet 03/12/22 03/21/22 Unknown Rx hydrALAZINE [Apresoline TAB] 50 mg PO Q8HR #120 tablet 03/12/22 03/21/22 Unknown Rx polyethylene glycoL 3350 [Miralax 17 gm PO QDAY #15 powd.pack 03/12/22 03/21/22 Unknown Rx 3350] traMADoL [Ultram 50 MG tab] 50 mg PO Q6H PRN #5 tablet 03/12/22 03/21/22 Unknown Rx Amiodarone [Cordarone 200 MG TAB] 200 mg PO . DIRECTED #60 tablet 03/23/22 Unknown Rx Apixaban [Eliquis] 2.5 mg PO BID #60 tab 03/23/22 Unknown Rx Prednisone [predniSONE 5 mg (6-Day 5 mg PO .TAPER #1 03/23/22 Unknown Rx Pack, 21 Tabs)] Active Meds: Active Medications Acetaminophen (Acetaminophen 325 Mg Tab) 650 mg PO Q4H PRN PRN Reason: Pain MILD(1-3)/Fever >100.5/SILVA Amiodarone HCl (Amiodarone 200 Mg Tab) 200 mg PO BID [facility] Stop: 04/15/22 22:01 Amiodarone HCl (Amiodarone 200 Mg Tab) 200 mg PO DAILY [facility] Apixaban (Apixaban 2.5 Mg Tab) 2.5 mg PO Q12HR [facility]; Protocol Aspirin (Aspirin Ec 325 Mg Tab) 325 mg PO QDAY [facility] Atorvastatin Calcium (Atorvastatin 20 Mg Tab) 20 mg PO QHS [facility] Dextrose (Dextrose 50% In Water (25gm) 50 Ml Syringe) 50 ml IV Q30MIN PRN; Protocol PRN Reason: Hypoglycemia Hydralazine HCl (Hydralazine 20 Mg/1 Ml Inj) 10 mg IV Q4HR PRN PRN Reason: Blood Pressure Insulin Human Lispro (Insulin Lispro 100 Unit/Ml) 0 unit SUB-Q ACHS [facility]; Protocol Last Admin: 04/02/22 08:18 Dose: Not Given Losartan Potassium (Losartan 50 Mg Tab) 50 mg PO QDAY [facility] Magnesium Hydroxide (Magnesium Hydroxide (Mom) Oral Liqd Udc) 30 ml PO Q4H PRN PRN Reason: Constipation Methocarbamol (Methocarbamol 750 Mg Tab) 750 mg PO BID [facility] Last Admin: 04/01/22 23:28 Dose: 750 mg Morphine Sulfate (Morphine 2 Mg/1 Ml Inj) 2 mg IV Q4H PRN PRN Reason: Pain, Moderate (4-6) Morphine Sulfate (Morphine 4 Mg/1 Ml Inj) 4 mg IV Q4H PRN PRN Reason: Pain , Severe (7-10) Last Admin: 04/02/22 03:01 Dose: 4 mg Morphine Sulfate (Morphine 4 Mg/1 Ml Inj) 2 mg IV Q5MIN PRN PRN Reason: Chest Pain unrelieved by NTG Ondansetron HCl (Ondansetron 4 Mg/2 Ml Inj) 4 mg IV Q8H PRN PRN Reason: Nausea And Vomiting Pantoprazole Sodium (Pantoprazole 40 Mg Tab) 40 mg PO QDAY [facility] Sodium Chloride (Sodium Chloride 0.9% 10 Ml Flush Syringe) 10 ml IV BID [facility] Sodium Chloride (Sodium Chloride 0.9% 10 Ml Flush Syringe) 10 ml IV PRN PRN PRN Reason: LINE FLUSH Tramadol HCl (Tramadol 50 Mg Tab) 50 mg PO Q6H PRN PRN Reason: Pain, Moderate (4-6) Review of Systems All systems: negative Exam - Vital Signs Vital signs: Vital Signs Temp Pulse Resp BP Pulse Ox 98.3 F 100 H 20 176/89 100 04/01/22 17:54 04/01/22 17:54 04/01/22 17:54 04/01/22 17:54 04/01/22 17:54 Results - Lab Results 04/01/22 18:36 04/02/22 01:35 Most recent lab results Calcium 9.4 mg/dL (8.4-10.2) 04/02/22 01:35 Assessment and Plan 1. ESRD: Patient is on maintenance hemodialysis, TTS schedule. Hemodialysis: today. 2. FEN: UF with HD as tolerated. Monitor lytes and volume status. 3. Chest pain // H/o CAD s/p PCI: Cards consulted. Monitor. 4. Paroxysmal A.flutter with RVR: Amiodarone and Eliquis. Monitor. 5. Chronic HFpEF: Volume control thru HD. Fluid restriction, monitor I/O. 6. H/o COPD: Nebs and O2 as needed. 7. Hypertension: Volume control with HD. Adjust BP meds as needed. Monitor BP. 8. Normochromic anemia, POA: Chronic. Likely 2/2 ESRD. Epogen as needed. Subjective: Patient was seen and examined at the bedside. Examination: General appearance: well-developed, appears stated age, no distress HEENT: atraumatic, ANA Neck: trachea midline Respiratory: ctab Heart: S1S2, regular, no murmur Abdomen: soft, bowel sounds heard, NT Integumentary: no obvious rash Neurologic: AO, able to move extremities Ext: no edema Hemodialysis access: R IJ tunnel catheter, R arm AVG
--- NOTE | 2022-04-02 12:57 | Consultation ---
History of Present Illness Consult date: 04/02/22 Consult reason: chest pain History of present illness: 64-year-old female with a history of end-stage renal disease and multiple other medical problems presenting with shortness of breath vague chest pain at rest and a dry cough she denies any fever chills. Recent stress test done in January 2022 was negative for any ischemic ischemic coronary artery disease Past History Past Medical History: acute NV, COPD, diabetes, dialysis, ESRD, heart failure, hypertension, hyperlipidemia, stroke (With right-sided weakness), other (Bipolar disorder, schizophrenia) Past Surgical History: PTCA, Other (Pacemaker placement, knee surgery in November 2017) Social history: smoking (Current daily smoker) Family history: no significant family history Medications and Allergies Allergies Allergy/AdvReac Type Severity Reaction Status Date / Time Iodinated Contrast Media AdvReac Intermediate Swelling Verified 03/21/22 07:58 apple AdvReac Hives Verified 03/21/22 07:58 shell fish Allergy Swelling Uncoded 03/21/22 07:58 Home Medications Medication Instructions Recorded Confirmed Last Taken Type Gabapentin 100 mg PO BID 03/02/22 03/21/22 Unknown History Nitroglycerin [Nitro-Bid] 0.1 mg TRANSDERMA Q6HR PRN 03/02/22 03/21/22 Unknown History Pantoprazole [Protonix TAB] 40 mg PO QDAY 03/02/22 03/21/22 03/02/22 10:00 History Sennosides/Docusate Sodium [Senna 1 cap PO DAILY 03/10/22 03/21/22 Unknown History Plus 8.6-50 mg Softgel] methIMAzole [Methimazole] 10 mg PO TID 03/10/22 03/21/22 Unknown History Acetaminophen [Acetaminophen TAB] 650 mg PO Q6H PRN tablet 03/12/22 03/21/22 Unknown Rx AtorvaSTATin [Lipitor] 20 mg PO QHS #30 tablet 03/12/22 03/21/22 Unknown Rx ISOSORBIDE MONOnitrate [Imdur ER] 60 mg PO QDAY #30 tablet 03/12/22 03/21/22 Unknown Rx Losartan [Cozaar] 50 mg PO QDAY #30 tab 03/12/22 03/21/22 Unknown Rx Magnesium Hydroxide [Milk of 30 ml PO Q4H PRN oral.liqd 03/12/22 03/21/22 Unknown Rx Magnesia] Metoprolol [Lopressor TAB] 100 mg PO BID #60 tablet 03/12/22 03/21/22 Unknown Rx Nitroglycerin [Nitrostat] 0.4 mg SL .Q5MIN PRN #15 tablet 03/12/22 03/21/22 Unknown Rx Sennosides/Docusate [Senokot S] 1 tab PO DAILY #30 tablet 03/12/22 03/21/22 Unknown Rx hydrALAZINE [Apresoline TAB] 50 mg PO Q8HR #120 tablet 03/12/22 03/21/22 Unknown Rx polyethylene glycoL 3350 [Miralax 17 gm PO QDAY #15 powd.pack 03/12/22 03/21/22 Unknown Rx 3350] traMADoL [Ultram 50 MG tab] 50 mg PO Q6H PRN #5 tablet 03/12/22 03/21/22 Unknown Rx Amiodarone [Cordarone 200 MG TAB] 200 mg PO . DIRECTED #60 tablet 03/23/22 Unknown Rx Apixaban [Eliquis] 2.5 mg PO BID #60 tab 03/23/22 Unknown Rx Prednisone [predniSONE 5 mg (6-Day 5 mg PO .TAPER #1 03/23/22 Unknown Rx Pack, 21 Tabs)] Active Meds: Active Medications Acetaminophen (Acetaminophen 325 Mg Tab) 650 mg PO Q4H PRN PRN Reason: Pain MILD(1-3)/Fever >100.5/SILVA Amiodarone HCl (Amiodarone 200 Mg Tab) 200 mg PO BID [facility] Stop: 04/15/22 22:01 Last Admin: 04/02/22 10:40 Dose: 200 mg Amiodarone HCl (Amiodarone 200 Mg Tab) 200 mg PO DAILY [facility] Apixaban (Apixaban 2.5 Mg Tab) 2.5 mg PO Q12HR [facility]; Protocol Last Admin: 04/02/22 10:40 Dose: 2.5 mg Aspirin (Aspirin Ec 325 Mg Tab) 325 mg PO QDAY [facility] Atorvastatin Calcium (Atorvastatin 20 Mg Tab) 20 mg PO QHS [facility] Dextrose (Dextrose 50% In Water (25gm) 50 Ml Syringe) 50 ml IV Q30MIN PRN; Protocol PRN Reason: Hypoglycemia Heparin Sodium (Porcine) (Heparin 10,000 Units/10 Ml Vial) 3,000 unit IV [facility]LENE PRN PRN Reason: hemodialysis Hydralazine HCl (Hydralazine 20 Mg/1 Ml Inj) 10 mg IV Q4HR PRN PRN Reason: Blood Pressure Sodium Chloride (Nacl 0.9%) 100 mls @ 999 mls/hr IV KARLENE PRN PRN Reason: Hypotension Insulin Human Lispro (Insulin Lispro 100 Unit/Ml) 0 unit SUB-Q ACHS [facility]; Protocol Last Admin: 04/02/22 08:18 Dose: Not Given Losartan Potassium (Losartan 50 Mg Tab) 50 mg PO QDAY [facility] Last Admin: 04/02/22 10:40 Dose: 50 mg Magnesium Hydroxide (Magnesium Hydroxide (Mom) Oral Liqd Udc) 30 ml PO Q4H PRN PRN Reason: Constipation Methocarbamol (Methocarbamol 750 Mg Tab) 750 mg PO BID [facility] Last Admin: 04/02/22 10:40 Dose: 750 mg Morphine Sulfate (Morphine 2 Mg/1 Ml Inj) 2 mg IV Q4H PRN PRN Reason: Pain, Moderate (4-6) Morphine Sulfate (Morphine 4 Mg/1 Ml Inj) 4 mg IV Q4H PRN PRN Reason: Pain , Severe (7-10) Last Admin: 04/02/22 03:01 Dose: 4 mg Morphine Sulfate (Morphine 4 Mg/1 Ml Inj) 2 mg IV Q5MIN PRN PRN Reason: Chest Pain unrelieved by NTG Ondansetron HCl (Ondansetron 4 Mg/2 Ml Inj) 4 mg IV Q8H PRN PRN Reason: Nausea And Vomiting Pantoprazole Sodium (Pantoprazole 40 Mg Tab) 40 mg PO QDAY [facility] Last Admin: 04/02/22 10:40 Dose: 40 mg Sodium Chloride (Sodium Chloride 0.9% 10 Ml Flush Syringe) 10 ml IV BID [facility] Last Admin: 04/02/22 10:40 Dose: 10 ml Sodium Chloride (Sodium Chloride 0.9% 10 Ml Flush Syringe) 10 ml IV PRN PRN PRN Reason: LINE FLUSH Tramadol HCl (Tramadol 50 Mg Tab) 50 mg PO Q6H PRN PRN Reason: Pain, Moderate (4-6) Physical Examination Vital Signs Temp Pulse Resp BP Pulse Ox 98.3 F 100 H 20 176/89 100 04/01/22 17:54 04/01/22 17:54 04/01/22 17:54 04/01/22 17:54 04/01/22 17:54 Results 04/01/22 18:36 04/02/22 01:35 Cardiac Enzymes 04/01/22 Range/Units 18:36 AST 35 (5-40) units/L CBC 04/01/22 Range/Units 18:36 WBC 10.3 (4.5-11.0) K/mm3 RBC 3.63 L (3.65-5.03) M/mm3 Hgb 11.1 (10.1-14.3) gm/dl Hct 34.4 (30.3-42.9) % Plt Count 153 (140-440) K/mm3 Lymph # (Auto) 1.4 (1.2-5.4) K/mm3 [place] # (Auto) 0.7 (0.0-0.8) K/mm3 Eos # (Auto) 0.2 (0.0-0.4) K/mm3 Baso # (Auto) 0.1 (0.0-0.1) K/mm3 Comprehensive Metabolic Panel 04/01/22 04/02/22 Range/Units 18:36 01:35 Sodium 140 139 (137-145) mmol/L Potassium 4.3 4.9 (3.6-5.0) mmol/L Chloride 101.6 99.1 (98-107) mmol/L Carbon Dioxide 22 20 L (22-30) mmol/L BUN 64 H 66 H (7-17) mg/dL Creatinine 5.0 H 5.4 H (0.6-1.2) mg/dL Glucose 95 101 H (65-100) mg/dL Calcium 9.0 9.4 (8.4-10.2) mg/dL AST 35 (5-40) units/L ALT 39 (7-56) units/L Alkaline Phosphatase 69 (35-129) units/L Total Protein 6.0 L (6.3-8.2) g/dL Albumin 4.3 (3.9-5) g/dL Assessment and Plan 1. Chest pain 2. Coronary artery disease status post PCI 3. Ischemic cardiomyopathy 4. Type 2 diabetes mellitus 5. Hyperlipidemia 6. Essential hypertension 7. End-stage renal disease on hemodialysis 8. Status post permanent pacemaker insertion 9. History of CVA Plan. Patient is currently stable in patient's chart there is a documentation of a negative stress MPI in January 2022 we shall obtain this resolved patient's chest pain appears atypical and noncardiac in origin. We will recommend conservative management at this time.
[2022-04-02] MEDS ORDERED: HEPARIN 5,000 UNIT/1 ML VIAL SUB-Q SCH (14:00)
--- NOTE | 2022-04-02 14:00 | Discharge Summary ---
Providers - Providers Date of Admission: 04/02/22 01:02 Date of discharge: 04/02/22 Attending physician: RADHA CAPONE MD 04/02/22 Consult to Cardiac Rehabilitation [CONS] Routine Reason For Exam: Phase I 04/02/22 01:02 Consult to Cardiology [CONS] Routine Consulting Provider: SHIVANI KIMBALL Reason For Exam: CHEST PAIN Consult to Dietitian/Nutrition [CONS] Routine Physician Instructions: Reason For Exam: Reason for Consult: Diet education Primary care physician: SERINA CALDWELL Hospitalization Reason for admission: chest pain, ACS r/o Condition: Stable Hospital course: 67-year-old female with history of ESRD CVA and hyperlipidemia who presents to the ED with complaints of chest pain and shortness of breath. Patient has been seen in the hospital multiple times with similar complaints. She reports having anxiety and developed chest pain whenever she has any upcoming doctor appointments. She had a recent stress test in January 2022 which did not reveal any acute abnormality. Troponin was collected and negative x4. Nephrology was consulted for hemodialysis. Patient remained chest pain-free and was discharged home after HD and cardiology evaluation. Disposition: HOME / SELF CARE / HOMELESS Final Discharge Diagnosis (Prints w/discharge instructions): Noncardiac chest pain. Coronary disease status post PCI. Ischemic cardiomyopathy. Type 2 diabetes. Hyperlipidemia. Hypertension. ESRD requiring hemodialysis. History of CVA Time spent for discharge: 25 minutes Core Measure Documentation - Palliative Care Palliative Care/ Comfort Measures: Not Applicable - Core Measures Any of the following diagnoses?: history only Exam - Physical Exam Narrative exam: GENERAL: Well-developed well-nourished. Sitting on the side of the bed in no acute distress. HEENT: Normocephalic. Atraumatic. NECK: Supple. CHEST/LUNGS: Right chest permacath. CTAB on room air HEART/CARDIOVASCULAR: RRR. No murmur, rubs or gallops appreciated. ABDOMEN: +BS. NT/ND. SKIN: No rashes noted. NEURO: No focal motor deficit. Follows all commands and is ambulatory. MUSCULOSKELETAL: No joint effusion EXTREMITIES: No cyanosis, clubbing or edema. PSYCH: Cooperative. - Constitutional Vitals: Temp Pulse Resp BP Pulse Ox 97.7 F 70 20 154/87 97 04/02/22 07:29 04/02/22 10:47 04/02/22 07:29 04/02/22 07:29 04/02/22 07:29 Plan Care Plan Goals: These follow-up with your outpatient bread oven operator and primary care provider. Resume dialysis at your current Friday, and Friday schedule. Follow up with: SERINA CALDWELL MD [Primary Care Provider] - 7 Days Prescriptions: Aspirin EC [Ecotrin] 325 mg PO QDAY 30 Days #30 tablet Nitroglycerin [Nitrostat] 0.4 mg SL .Q5MIN PRN 30 Days #30 tablet PRN Reason: Chest Pain
[2022-04-02 19:37] VITALS: BP 168/98
[2022-04-03] MEDS ORDERED: ASPIRIN EC 325 MG TAB PO SCH (10:00)
--- NOTE | 2022-04-03 12:09 | Electrocardiograph Report ---
[facility] Test Date: 2022-04-01 Test Time: 18:14:24 Pat Name: TEETEE MARTINEZ Department: Room: A468 Gender: F Class A Regional Drivers: [id number] : 1955 Requested By: CHEMO ROWE Order Number: [id number] Reading MD: Sudhakar Womack Measurements Intervals [place] Rate: 100 P: AL: QRS: -20 QRSD: 89 T: 64 QT: 361 QTc: 466 Interpretive Statements Atrial fibrillation Consider left ventricular hypertrophy Anterior Q waves, possibly due to LVH Compared to ECG 03/30/2022 08:41:44 Left ventricular hypertrophy now present Q waves now present Sinus tachycardia no longer present Myocardial infarct finding no longer present ST (T wave) deviation no longer present Electronically Signed On 04-03-2022 12:09:12 EDT by Sudhakar Womack
--- NOTE | 2022-04-03 13:54 | Electrocardiograph Report ---
[facility] Test Date: 2022-04-02 Test Time: 07:20:38 Pat Name: TEETEE MARTINEZ Department: Room: A468 Gender: F Grounds Restoration Specialist: BRISEYDA : 1955 Requested By: ZULLY MICHEL Order Number: [id number] Reading MD: Sudhakar Womack Measurements Intervals [place] Rate: 70 P: DC: 141 QRS: -5 QRSD: 87 T: 53 QT: 445 QTc: 480 Interpretive Statements Atrial-paced complexes Compared to ECG 04/01/2022 18:14:24 Atrial fibrillation no longer present Left ventricular hypertrophy no longer present Q waves no longer present Electronically Signed On 04-03-2022 13:54:20 EDT by Sudhakar Womack
[2022-04-16] MEDS ORDERED: AMIODARONE 200 MG TAB PO SCH (10:00)
== END 2022-04-02 20:35 | disposition home or self-care (01) ==
LOC: ED 17:46 → 4A 04-02 01:02 → INTOOBSV 04-02 01:02
PROVIDERS: ADMIT Internal Medicine Geriatric Medicine; ATTEND Student in an Organized Health Care Education/Training Program
DX: R07.89 Other chest pain (principal); I13.2 Hypertensive heart and chronic kidney disease with heart failure and with stage 5 chronic kidney disease, or end stage renal disease; I50.32 Chronic diastolic (congestive) heart failure; N18.6 End stage renal disease; E11.22 Type 2 diabetes mellitus with diabetic chronic kidney disease; D64.9 Anemia, unspecified; F31.9 Bipolar disorder, unspecified; E78.2 Mixed hyperlipidemia; I48.92 Unspecified atrial flutter; I25.2 Old myocardial infarction; J44.9 Chronic obstructive pulmonary disease, unspecified; F20.9 Schizophrenia, unspecified; F17.213 Nicotine dependence, cigarettes, with withdrawal; Z86.73 Personal history of transient ischemic attack (TIA), and cerebral infarction without residual deficits; Z99.2 Dependence on renal dialysis; Z79.899 Other long term (current) drug therapy; Z98.890 Other specified postprocedural states; Z95.1 Presence of aortocoronary bypass graft; Z79.82 Long term (current) use of aspirin
CPT/HCPCS: 36415; 71045; 80048; 80053; 82962; 84484; 85025; 93005; 94644; 96374; 96375; 96376; 99285; 99406; G0378; J2270; J2930; Q9967; J1815

== ENCOUNTER 2022-04-09 14:17 | Emergency (ER) | payer MEDICARE ==
[2022-04-09 14:32] VITALS: BP 160/90
--- NOTE | 2022-04-09 16:05 | XRay Report ---
CHEST 2 VIEWS INDICATION / CLINICAL INFORMATION: Chest pain for 4 hours. COMPARISON: 03/29/22. FINDINGS: SUPPORT DEVICES: The positions of the right jugular CVL and dual chamber left subclavian transvenous pacemaker have not changed. HEART / MEDIASTINUM: Mild cardiomegaly with a left ventricular configuration is again noted. Pulmonar y vascular congestion has resolved. The aorta is normal in caliber. There is a coronary artery stent. LUNGS / PLEURA: No significant pulmonary or pleural abnormality. No pneumothorax. ADDITIONAL FINDINGS: No significant additional findings. IMPRESSION: No acute findings. Signer Name: Franklin Joseph MD Signed: 04/09/2022 4:00 PM Workstation Name: [id number]
[2022-04-09 17:10] LABS: Basophils % (Auto) 0.5 % (0.0-1.8); Eosinophils # (Auto) 0.2 K/mm3 (0.0-0.4); Eosinophils % (Auto) 2.6 % (0.0-4.3); Hematocrit 38.2 % (30.3-42.9); Hemoglobin 12.4 gm/dl (10.1-14.3); Lymphocytes # (Auto) 1.7 K/mm3 (1.2-5.4); Mean Corpuscular HGB Conc 33 % (30-34); Mean Corpuscular Volume 95 fl (79-97); Monocytes # (Auto) 0.7 K/mm3 (0.0-0.8); Monocytes % (Auto) 7.8 % (0.0-7.3); Platelet Count 150 K/mm3 (140-440); Red Cell Distribution Width 18.5 % (13.2-15.2)
[2022-04-09 17:28] LABS: Alanine Aminotransferase 19 units/L (7-56); Albumin 4.7 g/dL (3.9-5); BUN/Creatinine Ratio 10; Blood Urea Nitrogen 27 mg/dL (7-17); Calcium 9.4 mg/dL (8.4-10.2); Hemolysis Index 58
--- NOTE | 2022-04-10 09:06 | Electrocardiograph Report ---
[facility] Test Date: 2022-04-09 Test Time: 18:47:44 Pat Name: TEETEE MARTINEZ Department: Room: Gender: F Home Help Aide: MYRON : 1955 Requested By: JO RIGGINS Order Number: [id number] Reading MD: Mike Davis Measurements Intervals [place] Rate: 117 P: 81 RI: 194 QRS: -19 QRSD: 87 T: 81 QT: 350 QTc: 480 Interpretive Statements Sinus tachycardia Multiple premature complexes, vent & supraven Inferior infarct, old nonspecific st-t Compared to ECG 04/07/2022 10:07:06 Atrial flutter no longer present AV block, advanced (high-grade) no longer present Myocardial infarct finding still present Electronically Signed On 04-10-2022 9:06:43 EDT by Mike Davis
== END 2022-04-09 21:30 | disposition left against medical advice (07) ==
LOC: ED 14:17
DX: R07.9 Chest pain, unspecified (principal); Z53.21 Procedure and treatment not carried out due to patient leaving prior to being seen by health care provider
CPT/HCPCS: 36415; 71046; 80053; 84484; 85025; 93005

== ENCOUNTER 2022-04-11 08:11 | Emergency (ER) | payer MEDICARE ==
[2022-04-11] MEDS ORDERED: ASPIRIN 325 MG TAB PO ONE (08:20)
[2022-04-11 09:20] LABS: Basophils % (Auto) 0.5 % (0.0-1.8); Eosinophils # (Auto) 0.2 K/mm3 (0.0-0.4); Eosinophils % (Auto) 2.3 % (0.0-4.3); Hematocrit 36.4 % (30.3-42.9); Hemoglobin 11.5 gm/dl (10.1-14.3); Lymphocytes # (Auto) 1.4 K/mm3 (1.2-5.4); Lymphocytes % (Auto) 17.6 % (13.4-35.0); Mean Corpuscular HGB Conc 32 % (30-34); Mean Corpuscular Volume 96 fl (79-97); Monocytes # (Auto) 0.6 K/mm3 (0.0-0.8); Monocytes % (Auto) 7.5 % (0.0-7.3); Platelet Count 127 K/mm3 (140-440); Red Blood Count 3.79 M/mm3 (3.65-5.03); Red Cell Distribution Width 19.1 % (13.2-15.2)
--- NOTE | 2022-04-11 09:20 | XRay Report ---
XR chest routine 2V INDICATION / CLINICAL INFORMATION: chest pain COMPARISON: April 09, 2022 FINDINGS: SUPPORT DEVICES: RIJ CVC terminates in the cavoatrial junction. Pacemaker unchanged HEART / MEDIASTINUM: No significant abnormality. LUNGS / PLEURA: Lungs are clear. Costophrenic sulci are sharp. No pneumothorax. ADDITIONAL FINDINGS: No significant additional findings. IMPRESSION: 1. No acute findings. Signer Name: Henry Dsouza MD Signed: 04/11/2022 9:15 AM Workstation Name: [id number]
[2022-04-11 09:46] LABS: Alanine Aminotransferase 16 units/L (7-56); Blood Urea Nitrogen 49 mg/dL (7-17); Calcium 8.8 mg/dL (8.4-10.2); Hemolysis Index 8
[2022-04-11 09:53] LABS: BUN/Creatinine Ratio 10
--- NOTE | 2022-04-11 10:07 | Emergency Department Report ---
ED Chest Pain HPI - General Chief Complaint: Chest Pain Stated Complaint: CHEST PAIN Time Seen by Provider: 04/11/22 09:51 Source: patient Mode of arrival: Ambulatory Limitations: No Limitations - History of Present Illness Initial Comments: Ms. Molly Palmer is a well-known 67-year-old female with a history of end-stage renal disease currently on hemodialysis that presents this morning with chest pain that started last night. Patient is supposed to go for dialysis today with last dialysis about 3 days ago on Friday. Patient denies any fever or chills. Patient describes chest pain as pressure with no radiation. No shortness of breath or palpitation reported. No other modifying or associated factors reported. - Related Data Home Medications Medication Instructions Recorded Confirmed Last Taken Gabapentin 100 mg PO BID 03/02/22 04/06/22 Unknown Pantoprazole [Protonix TAB] 40 mg PO QDAY 03/02/22 04/06/22 03/02/22 10:00 methIMAzole [Methimazole] 10 mg PO TID 03/10/22 04/06/22 Unknown Previous Rx's Medication Instructions Recorded Last Taken Type AtorvaSTATin [Lipitor] 20 mg PO QHS #30 tablet 03/12/22 Unknown Rx ISOSORBIDE MONOnitrate [Imdur ER] 60 mg PO QDAY #30 tablet 03/12/22 Unknown Rx Losartan [Cozaar] 50 mg PO QDAY #30 tab 03/12/22 Unknown Rx Metoprolol [Lopressor TAB] 100 mg PO BID #60 tablet 03/12/22 Unknown Rx Sennosides/Docusate [Senokot S] 1 tab PO DAILY #30 tablet 03/12/22 Unknown Rx hydrALAZINE [Apresoline TAB] 50 mg PO Q8HR #120 tablet 03/12/22 Unknown Rx Amiodarone [Cordarone 200 MG TAB] 200 mg PO . DIRECTED #60 tablet 03/23/22 Unknown Rx Apixaban [Eliquis] 2.5 mg PO BID #60 tab 03/23/22 Unknown Rx Aspirin EC [Ecotrin] 325 mg PO QDAY 30 Days #30 tablet 04/02/22 Unknown Rx Nitroglycerin [Nitrostat] 0.4 mg SL .Q5MIN PRN 30 Days #30 04/02/22 Unknown Rx tablet Allergies Allergy/AdvReac Type Severity Reaction Status Date / Time Iodinated Contrast Media AdvReac Intermediate Swelling Verified 04/11/22 09:45 apple AdvReac Hives Verified 04/11/22 09:45 shell fish Allergy Swelling Uncoded 04/11/22 09:45 Heart Score - HEART Score History: Moderately suspicious EKG: Normal Age: > 65 Risk factors: > 3 risk factors or hx of atherosclerotic disease Troponin: < normal limit HEART Score: 5 - EKG Read Time Time EKG Completed: : EKG Read Time: 08:28 - Critical Actions Critical Actions: 4-6 pts:12-16.6% risk of adverse cardiac event. Should be admitted ED Review of Systems ROS: Stated complaint: CHEST PAIN Other details as noted in HPI Comment: All other systems reviewed and negative Cardiovascular: chest pain ED Past Medical Hx - Past Medical History Hx Hypertension: Yes Hx CVA: Yes (right sided weakness) Hx Heart Attack/AMI: Yes (1 stent) Hx Congestive Heart Failure: Yes Hx Diabetes: Yes Hx Renal Disease: Yes (RENAL INSUFFICIENCY- stent left kidney) Hx Sickle Cell Disease: No Hx Kidney Stones: No Hx Psychiatric Treatment: Yes (BIPOLAR/SCHIZOPHRENIA) Hx COPD: Yes Hx HIV: No Additional medical history: HIGH CHOLESTEROL - Surgical History Hx Coronary Stent: Yes Hx Pacemaker: Yes Additional Surgical History: stent placement x 2 in 2014, knee surgery 11/2017 - Social History Smoking Status: Current Every Day Smoker - Medications Home Medications: Home Medications Medication Instructions Recorded Confirmed Last Taken Type Gabapentin 100 mg PO BID 03/02/22 04/06/22 Unknown History Pantoprazole [Protonix TAB] 40 mg PO QDAY 03/02/22 04/06/22 03/02/22 10:00 History methIMAzole [Methimazole] 10 mg PO TID 03/10/22 04/06/22 Unknown History AtorvaSTATin [Lipitor] 20 mg PO QHS #30 tablet 03/12/22 04/06/22 Unknown Rx ISOSORBIDE MONOnitrate [Imdur ER] 60 mg PO QDAY #30 tablet 03/12/22 04/06/22 Unknown Rx Losartan [Cozaar] 50 mg PO QDAY #30 tab 03/12/22 04/06/22 Unknown Rx Metoprolol [Lopressor TAB] 100 mg PO BID #60 tablet 03/12/22 04/06/22 Unknown Rx Sennosides/Docusate [Senokot S] 1 tab PO DAILY #30 tablet 03/12/22 04/06/22 Unknown Rx hydrALAZINE [Apresoline TAB] 50 mg PO Q8HR #120 tablet 03/12/22 04/06/22 Unknown Rx Amiodarone [Cordarone 200 MG TAB] 200 mg PO . DIRECTED #60 tablet 03/23/22 04/06/22 Unknown Rx Apixaban [Eliquis] 2.5 mg PO BID #60 tab 03/23/22 04/06/22 Unknown Rx Aspirin EC [Ecotrin] 325 mg PO QDAY 30 Days #30 tablet 04/02/22 04/06/22 Unknown Rx Nitroglycerin [Nitrostat] 0.4 mg SL .Q5MIN PRN 30 Days #30 04/02/22 04/06/22 Unknown Rx tablet ED Physical Exam - General Limitations: No Limitations General appearance: alert, in no apparent distress - Head Head exam: Present: normal inspection - Eye Eye exam: Present: normal appearance Pupils: Present: normal accommodation - ENT ENT exam: Present: normal exam, normal orophraynx, mucous membranes moist - Neck Neck exam: Present: normal inspection. Absent: tenderness - Respiratory Respiratory exam: Present: normal lung sounds bilaterally. Absent: respiratory distress, accessory muscle use - Cardiovascular Cardiovascular Exam: Present: regular rate, normal rhythm, normal heart sounds - GI/Abdominal GI/Abdominal exam: Present: soft, normal bowel sounds. Absent: distended, tenderness - Extremities Exam Extremities exam: Present: normal inspection, full ROM, normal capillary refill. Absent: tenderness, pedal edema - Back Exam Back exam: Absent: tenderness - Neurological Exam Neurological exam: Present: alert, oriented X3 - Psychiatric Psychiatric exam: Present: normal affect, normal mood - Skin Skin exam: Present: warm, normal color ED Course Vital Signs 04/11/22 04/11/22 04/11/22 08:17 08:47 09:00 Temperature 98.2 F Pulse Rate 69 107 H Respiratory 16 22 Rate Blood Pressure 180/111 Blood Pressure 134/87 [Left] O2 Sat by Pulse 97 81 L 99 Oximetry 04/11/22 04/11/22 04/11/22 09:16 09:30 09:46 Temperature Pulse Rate 94 H 95 H 116 H Respiratory 21 21 12 Rate Blood Pressure 98/61 169/113 169/113 Blood Pressure [Left] O2 Sat by Pulse 100 98 100 Oximetry 04/11/22 04/11/22 04/11/22 10:00 10:16 10:30 Temperature Pulse Rate 118 H 116 H 79 Respiratory 16 22 14 Rate Blood Pressure 176/106 166/108 173/99 Blood Pressure [Left] O2 Sat by Pulse 100 99 97 Oximetry 04/11/22 04/11/22 04/11/22 10:46 11:00 11:16 Temperature Pulse Rate 114 H 116 H 107 H Respiratory 21 19 21 Rate Blood Pressure 173/99 169/109 169/109 Blood Pressure [Left] O2 Sat by Pulse 98 98 99 Oximetry 04/11/22 04/11/22 04/11/22 11:30 11:46 12:00 Temperature Pulse Rate 121 H 117 H 116 H Respiratory 23 22 10 L Rate Blood Pressure 169/109 169/109 Blood Pressure [Left] O2 Sat by Pulse 98 97 98 Oximetry 04/11/22 04/11/22 04/11/22 12:16 12:30 12:46 Temperature Pulse Rate 121 H 118 H 112 H Respiratory 30 H 25 H 22 Rate Blood Pressure 168/106 163/108 163/108 Blood Pressure [Left] O2 Sat by Pulse 98 98 99 Oximetry 04/11/22 13:00 Temperature Pulse Rate 113 H Respiratory 16 Rate Blood Pressure 153/97 Blood Pressure [Left] O2 Sat by Pulse 98 Oximetry - Reevaluation(s) Reevaluation #1: 04/11/22 10:05 Came in with chest pain with history of end-stage renal disease and COPD--considering this patient's age this is concerning for and not limited to myocardial infarction, COPD exacerbation, pulmonary embolism, pneumonia, and any other systemic infection. In order to rule those out we will go ahead and order routine cardiac work-up that include troponin, EKG, chest x-ray, CBC, CMP and urinalysis. Due to this patient's symptoms might be as a result of needing dialysis with elevated BUN and creatinine and likely potassium but considering her age the other dreadful cause needed to be ruled out. Reevaluation #2: 04/11/22 14:21 Lab reviewed and noted to be within normal limits except slightly elevated BUN and creatinine at 49/4.9 but with normal potassium. This is likely noncardiac considering reassuring EKG and normal troponin initial and repeated 6 hours later. Patient reassured to be sure to keep her dialysis. BLAS score - Blas Score Age > 65: (1) Yes Aspirin use within the Past 7 Days: (0) No 3 or more CAD Risk Factors: (1) Yes 2 or more Angina events in past 24 hrs: (1) Yes Known CAD with more than 50% Stenosis: (1) Yes Elevated Cardiac Markers: (0) No ST Deviation Greater than 0.5mm: (0) No BLAS Score: 4 ED Medical Decision Making - Lab Data Result diagrams: 04/11/22 08:56 04/11/22 08:56 - EKG Data -: EKG Interpreted by Me EKG shows normal: sinus rhythm Rate: normal - EKG Data Interpretation: no acute changes 04/11/22 14:21 Noted with normal sinus rhythm at the rate of 70 bpm, which no ST elevation or significant depression noted on this abnormal ECG. Critical care attestation.: If time is entered above; I have spent that time in minutes in the direct care of this critically ill patient, excluding procedure time. ED Disposition Clinical Impression: CKD (chronic kidney disease) requiring chronic dialysis, Non-cardiac chest pain Disposition: 01 HOME / SELF CARE / HOMELESS Is pt being admited?: No Does the pt Need Aspirin: No Condition: Stable Instructions: Nonspecific Chest Pain, Adult Additional Instructions: Please be sure to call and keep your dialysis as scheduled Your chest pain today is likely noncardiac based on the work-up given to you during your visit It is okay to call and schedule follow-up with your primary doctor in the next 2 to 3 days for progress Please do not hesitate to call or return to emergency room if your symptoms worsen Referrals: PRIMARY MD ANIYAH [Primary Care Provider] - 3-5 Days Time of Disposition: 14:25
--- NOTE | 2022-04-11 10:17 | Electrocardiograph Report ---
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
[2022-04-11 13:02] VITALS: BP 153/97
== END 2022-04-11 15:58 | disposition home or self-care (01) ==
LOC: ED 08:11
DX: R07.89 Other chest pain (principal); I13.2 Hypertensive heart and chronic kidney disease with heart failure and with stage 5 chronic kidney disease, or end stage renal disease; E11.22 Type 2 diabetes mellitus with diabetic chronic kidney disease; N18.6 End stage renal disease; I50.9 Heart failure, unspecified; Z99.2 Dependence on renal dialysis; J44.1 Chronic obstructive pulmonary disease with (acute) exacerbation; F31.9 Bipolar disorder, unspecified; F17.200 Nicotine dependence, unspecified, uncomplicated; Z86.73 Personal history of transient ischemic attack (TIA), and cerebral infarction without residual deficits; Z91.02 Food additives allergy status; Z91.013 Allergy to seafood; Z91.09 Other allergy status, other than to drugs and biological substances; Z98.890 Other specified postprocedural states; Z79.899 Other long term (current) drug therapy
CPT/HCPCS: 36415; 71046; 80053; 84484; 85025; 93005; 99284

== ENCOUNTER 2022-04-25 11:00 | Emergency (ER) | payer MEDICARE ==
[2022-04-25] MEDS ORDERED: ONDANSETRON 4 MG/2 ML INJ IV ONE (11:38)
[2022-04-25] MEDS ORDERED: ASPIRIN 325 MG TAB PO ONE (11:38)
[2022-04-25] MEDS ORDERED: NITROGLYCERIN 2% OINT 1 GM TP ONE (11:38)
[2022-04-25] MEDS ORDERED: MORPHINE 4 MG/1 ML INJ IV ONE (11:39)
--- NOTE | 2022-04-25 12:14 | XRay Report ---
CHEST 2 VIEWS INDICATION / CLINICAL INFORMATION: Chest Pain. COMPARISON: 04/11/2022 FINDINGS: SUPPORT DEVICES: Stable, satisfactory device positioning. HEART / MEDIASTINUM: No significant abnormality. LUNGS / PLEURA: No significant pulmonary or pleural abnormality. No pneumothorax. ADDITIONAL FINDINGS: No significant additional findings. IMPRESSION: 1. No acute findings. Signer Name: Chang Turner MD Signed: 04/25/2022 12:10 PM Workstation Name: [id number]
[2022-04-25 12:57] LABS: Basophils % (Auto) 0.3 % (0.0-1.8); Eosinophils # (Auto) 0.1 K/mm3 (0.0-0.4); Eosinophils % (Auto) 1.3 % (0.0-4.3); Hematocrit 32.7 % (30.3-42.9); Hemoglobin 10.8 gm/dl (10.1-14.3); Lymphocytes # (Auto) 1.4 K/mm3 (1.2-5.4); Lymphocytes % (Auto) 13.4 % (13.4-35.0); Mean Corpuscular HGB Conc 33 % (30-34); Mean Corpuscular Volume 95 fl (79-97); Monocytes # (Auto) 0.7 K/mm3 (0.0-0.8); Monocytes % (Auto) 7.1 % (0.0-7.3); Platelet Count 156 K/mm3 (140-440); Red Blood Count 3.43 M/mm3 (3.65-5.03); Red Cell Distribution Width 18.6 % (13.2-15.2)
[2022-04-25 13:07] LABS: INR 1.03 (0.87-1.13)
[2022-04-25 13:21] LABS: Albumin 3.8 g/dL (3.9-5); Calcium 9.1 mg/dL (8.4-10.2)
[2022-04-25] MEDS ORDERED: METOPROLOL TARTRATE 50 MG TAB PO ONE (13:51)
--- NOTE | 2022-04-25 14:46 | Emergency Department Report ---
ED Chest Pain HPI - General Chief Complaint: Chest Pain Stated Complaint: CHEST PAIN Time Seen by Provider: 04/25/22 11:29 Source: patient, EMS Mode of arrival: Stretcher Limitations: No Limitations - History of Present Illness Initial Comments: pt is 67 years old with DM and afib and CHF and CKD, here for chest pain started this am pot is well known to our service with frequent visits for the same -: Gradual, hour(s) Onset: during rest Pain Location: left chest Pain Radiation: none Severity scale (0 -10): 10 Consistency: intermittent Improves With: nothing Worsens With: nothing - Related Data Home Medications Medication Instructions Recorded Confirmed Last Taken Gabapentin 100 mg PO BID 03/02/22 04/06/22 Unknown Pantoprazole [Protonix TAB] 40 mg PO QDAY 03/02/22 04/06/22 03/02/22 10:00 methIMAzole [Methimazole] 10 mg PO TID 03/10/22 04/06/22 Unknown Previous Rx's Medication Instructions Recorded Last Taken Type AtorvaSTATin [Lipitor] 20 mg PO QHS #30 tablet 03/12/22 Unknown Rx ISOSORBIDE MONOnitrate [Imdur ER] 60 mg PO QDAY #30 tablet 03/12/22 Unknown Rx Losartan [Cozaar] 50 mg PO QDAY #30 tab 03/12/22 Unknown Rx Metoprolol [Lopressor TAB] 100 mg PO BID #60 tablet 03/12/22 Unknown Rx Sennosides/Docusate [Senokot S] 1 tab PO DAILY #30 tablet 03/12/22 Unknown Rx hydrALAZINE [Apresoline TAB] 50 mg PO Q8HR #120 tablet 03/12/22 Unknown Rx Amiodarone [Cordarone 200 MG TAB] 200 mg PO . DIRECTED #60 tablet 03/23/22 Unknown Rx Apixaban [Eliquis] 2.5 mg PO BID #60 tab 03/23/22 Unknown Rx Aspirin EC [Ecotrin] 325 mg PO QDAY 30 Days #30 tablet 04/02/22 Unknown Rx Nitroglycerin [Nitrostat] 0.4 mg SL .Q5MIN PRN 30 Days #30 04/02/22 Unknown Rx tablet Allergies Allergy/AdvReac Type Severity Reaction Status Date / Time Iodinated Contrast Media AdvReac Intermediate Swelling Verified 04/11/22 09:45 apple AdvReac Hives Verified 04/11/22 09:45 shell fish Allergy Swelling Uncoded 04/11/22 09:45 Heart Score - HEART Score History: Slightly suspicious EKG: Normal Age: > 65 Risk factors: 1-2 risk factors Troponin: < normal limit HEART Score: 3 - EKG Read Time Time EKG Completed: 12:48 EKG Read Time: 12:48 ED Review of Systems ROS: Stated complaint: CHEST PAIN Other details as noted in HPI ED Past Medical Hx - Past Medical History Hx Hypertension: Yes Hx CVA: Yes (right sided weakness) Hx Heart Attack/AMI: Yes (1 stent) Hx Congestive Heart Failure: Yes Hx Diabetes: Yes Hx Renal Disease: Yes (RENAL INSUFFICIENCY- stent left kidney) Hx Sickle Cell Disease: No Hx Kidney Stones: No Hx Psychiatric Treatment: Yes (BIPOLAR/SCHIZOPHRENIA) Hx COPD: Yes Hx HIV: No Additional medical history: HIGH CHOLESTEROL - Surgical History Hx Coronary Stent: Yes Hx Pacemaker: Yes Additional Surgical History: stent placement x 2 in 2014, knee surgery 11/2017 - Social History Smoking Status: Unknown if ever smoked - Medications Home Medications: Home Medications Medication Instructions Recorded Confirmed Last Taken Type Gabapentin 100 mg PO BID 03/02/22 04/06/22 Unknown History Pantoprazole [Protonix TAB] 40 mg PO QDAY 03/02/22 04/06/22 03/02/22 10:00 History methIMAzole [Methimazole] 10 mg PO TID 03/10/22 04/06/22 Unknown History AtorvaSTATin [Lipitor] 20 mg PO QHS #30 tablet 03/12/22 04/06/22 Unknown Rx ISOSORBIDE MONOnitrate [Imdur ER] 60 mg PO QDAY #30 tablet 03/12/22 04/06/22 Unknown Rx Losartan [Cozaar] 50 mg PO QDAY #30 tab 03/12/22 04/06/22 Unknown Rx Metoprolol [Lopressor TAB] 100 mg PO BID #60 tablet 03/12/22 04/06/22 Unknown Rx Sennosides/Docusate [Senokot S] 1 tab PO DAILY #30 tablet 03/12/22 04/06/22 Unknown Rx hydrALAZINE [Apresoline TAB] 50 mg PO Q8HR #120 tablet 03/12/22 04/06/22 Unknown Rx Amiodarone [Cordarone 200 MG TAB] 200 mg PO . DIRECTED #60 tablet 03/23/22 04/06/22 Unknown Rx Apixaban [Eliquis] 2.5 mg PO BID #60 tab 03/23/22 04/06/22 Unknown Rx Aspirin EC [Ecotrin] 325 mg PO QDAY 30 Days #30 tablet 04/02/22 04/06/22 Unknown Rx Nitroglycerin [Nitrostat] 0.4 mg SL .Q5MIN PRN 30 Days #30 04/02/22 04/06/22 Unknown Rx tablet ED Physical Exam - General Limitations: No Limitations General appearance: alert, in no apparent distress - Head Head exam: Present: atraumatic, normocephalic - Eye Eye exam: Present: normal appearance - ENT ENT exam: Present: mucous membranes moist - Neck Neck exam: Present: normal inspection - Respiratory Respiratory exam: Present: normal lung sounds bilaterally. Absent: respiratory distress - Cardiovascular Cardiovascular Exam: Present: regular rate, normal rhythm. Absent: systolic murmur, diastolic murmur, rubs, gallop - GI/Abdominal GI/Abdominal exam: Present: soft, normal bowel sounds - Extremities Exam Extremities exam: Present: normal inspection - Back Exam Back exam: Present: normal inspection - Neurological Exam Neurological exam: Present: alert, oriented X3 - Psychiatric Psychiatric exam: Present: normal affect, normal mood - Skin Skin exam: Present: warm, dry, intact, normal color. Absent: rash ED Course Vital Signs 04/25/22 04/25/22 04/25/22 11:07 11:38 13:07 Temperature 98.3 F Pulse Rate 102 H 109 H Respiratory 16 Rate Blood Pressure Blood Pressure 159/103 [Left] O2 Sat by Pulse 98 100 Oximetry 04/25/22 13:58 Temperature Pulse Rate 101 H Respiratory Rate Blood Pressure 141/118 Blood Pressure [Left] O2 Sat by Pulse Oximetry BLAS score - Blas Score Age > 65: (1) Yes Aspirin use within the Past 7 Days: (0) No 3 or more CAD Risk Factors: (1) Yes 2 or more Angina events in past 24 hrs: (1) Yes Known CAD with more than 50% Stenosis: (1) Yes Elevated Cardiac Markers: (0) No ST Deviation Greater than 0.5mm: (0) No BLAS Score: 4 ED Medical Decision Making - Lab Data Result diagrams: 04/25/22 12:33 04/25/22 12:33 - EKG Data -: EKG Interpreted by Me - EKG Data Interpretation: other (afib rvr with pvc) - Radiology Data Radiology results: report reviewed, image reviewed - Medical Decision Making work up unchaged from before, HR controlled ith lopressor ain meds given ntro is given Critical care attestation.: If time is entered above; I have spent that time in minutes in the direct care of this critically ill patient, excluding procedure time. ED Disposition Clinical Impression: Afib, Diabetes mellitus, Chest pain, CHF (congestive heart failure) Disposition: HOME / SELF CARE / HOMELESS Is pt being admited?: No Does the pt Need Aspirin: No Condition: Stable Instructions: Diabetes Mellitus Type 2 in Adults (ED), Nonspecific Chest Pain, Adult Referrals: PRIMARY CARE, [Primary Care Provider] - 3-5 Days
[2022-04-25 16:11] VITALS: BP 163/80
--- NOTE | 2022-04-26 11:27 | Electrocardiograph Report ---
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
== END 2022-04-25 16:10 | disposition home or self-care (01) ==
LOC: ED 11:00
DX: I50.9 Heart failure, unspecified (principal); E11.9 Type 2 diabetes mellitus without complications; R07.9 Chest pain, unspecified; Z91.013 Allergy to seafood; Z91.041 Radiographic dye allergy status; Z91.018 Allergy to other foods
CPT/HCPCS: 36415; 71046; 80053; 82550; 83690; 83880; 84484; 85025; 85610; 93005; 96374; 96375; 99284; J2270; J2405

== ENCOUNTER 2022-05-21 12:29 | Inpatient (IN) | payer MEDICARE ==
[2022-05-21] MEDS ORDERED: MORPHINE 4 MG/1 ML INJ ONE (12:56)
[2022-05-21] MEDS ORDERED: MORPHINE 4 MG/1 ML INJ IM ONE (12:56)
[2022-05-21] MEDS ORDERED: dilTIAZem 25 MG/5 ML INJ IV ONE (12:56)
--- NOTE | 2022-05-21 13:06 | Emergency Department Report ---
ED Palpitations HPI - General Stated Complaint: CHEST PAIN Time Seen by Provider: 05/21/22 12:55 - History of Present Illness Initial Comments: Patient is a 67-year-old female with history of chronic kidney disease on dialysis, A. fib on Eliquis brought in by EMS from dialysis for evaluation of palpitations and chest pain that began just prior to initiation of dialysis. On arrival she is tachycardic between 130s and 150s, likely A. fib with RVR. Given aspirin and sublingual nitroglycerin by EMS in route. - Related Data Home Medications Medication Instructions Recorded Confirmed Last Taken Gabapentin 100 mg PO BID 03/02/22 04/06/22 Unknown Pantoprazole [Protonix TAB] 40 mg PO QDAY 03/02/22 04/06/22 03/02/22 10:00 methIMAzole [Methimazole] 10 mg PO TID 03/10/22 04/06/22 Unknown Previous Rx's Medication Instructions Recorded Last Taken Type AtorvaSTATin [Lipitor] 20 mg PO QHS #30 tablet 03/12/22 Unknown Rx ISOSORBIDE MONOnitrate [Imdur ER] 60 mg PO QDAY #30 tablet 03/12/22 Unknown Rx Losartan [Cozaar] 50 mg PO QDAY #30 tab 03/12/22 Unknown Rx Metoprolol [Lopressor TAB] 100 mg PO BID #60 tablet 03/12/22 Unknown Rx Sennosides/Docusate [Senokot S] 1 tab PO DAILY #30 tablet 03/12/22 Unknown Rx hydrALAZINE [Apresoline TAB] 50 mg PO Q8HR #120 tablet 03/12/22 Unknown Rx Amiodarone [Cordarone 200 MG TAB] 200 mg PO . DIRECTED #60 tablet 03/23/22 Unknown Rx Apixaban [Eliquis] 2.5 mg PO BID #60 tab 03/23/22 Unknown Rx Aspirin EC [Ecotrin] 325 mg PO QDAY 30 Days #30 tablet 04/02/22 Unknown Rx Nitroglycerin [Nitrostat] 0.4 mg SL .Q5MIN PRN 30 Days #30 04/02/22 Unknown Rx tablet Allergies Allergy/AdvReac Type Severity Reaction Status Date / Time Iodinated Contrast Media AdvReac Intermediate Swelling Verified 04/11/22 09:45 apple AdvReac Hives Verified 04/11/22 09:45 shell fish Allergy Swelling Uncoded 04/11/22 09:45 ED Review of Systems ROS: Stated complaint: CHEST PAIN Other details as noted in HPI Constitutional: see HPI Respiratory: denies: cough, shortness of breath, wheezing Cardiovascular: chest pain, palpitations Gastrointestinal: denies: abdominal pain, nausea, vomiting Genitourinary: denies: urgency, dysuria, discharge Musculoskeletal: denies: back pain, joint swelling, arthralgia Skin: denies: rash, lesions Neurological: denies: headache, weakness Psychiatric: denies: anxiety, depression ED Past Medical Hx - Past Medical History Hx Hypertension: Yes Hx CVA: Yes (right sided weakness) Hx Heart Attack/AMI: Yes (1 stent) Hx Congestive Heart Failure: Yes Hx Diabetes: Yes Hx Renal Disease: Yes (RENAL INSUFFICIENCY- stent left kidney) Hx Sickle Cell Disease: No Hx Kidney Stones: No Hx Psychiatric Treatment: Yes (BIPOLAR/SCHIZOPHRENIA) Hx COPD: Yes Hx HIV: No Additional medical history: HIGH CHOLESTEROL - Surgical History Hx Coronary Stent: Yes Hx Pacemaker: Yes Additional Surgical History: stent placement x 2 in 2014, knee surgery 11/2017 - Social History Smoking Status: Current Every Day Smoker - Medications Home Medications: Home Medications Medication Instructions Recorded Confirmed Last Taken Type Gabapentin 100 mg PO BID 03/02/22 04/06/22 Unknown History Pantoprazole [Protonix TAB] 40 mg PO QDAY 03/02/22 04/06/22 03/02/22 10:00 History methIMAzole [Methimazole] 10 mg PO TID 03/10/22 04/06/22 Unknown History AtorvaSTATin [Lipitor] 20 mg PO QHS #30 tablet 03/12/22 04/06/22 Unknown Rx ISOSORBIDE MONOnitrate [Imdur ER] 60 mg PO QDAY #30 tablet 03/12/22 04/06/22 Unknown Rx Losartan [Cozaar] 50 mg PO QDAY #30 tab 03/12/22 04/06/22 Unknown Rx Metoprolol [Lopressor TAB] 100 mg PO BID #60 tablet 03/12/22 04/06/22 Unknown Rx Sennosides/Docusate [Senokot S] 1 tab PO DAILY #30 tablet 03/12/22 04/06/22 Unknown Rx hydrALAZINE [Apresoline TAB] 50 mg PO Q8HR #120 tablet 03/12/22 04/06/22 Unknown Rx Amiodarone [Cordarone 200 MG TAB] 200 mg PO . DIRECTED #60 tablet 03/23/22 04/06/22 Unknown Rx Apixaban [Eliquis] 2.5 mg PO BID #60 tab 03/23/22 04/06/22 Unknown Rx Aspirin EC [Ecotrin] 325 mg PO QDAY 30 Days #30 tablet 04/02/22 04/06/22 Unknown Rx Nitroglycerin [Nitrostat] 0.4 mg SL .Q5MIN PRN 30 Days #30 04/02/22 04/06/22 Unknown Rx tablet ED Physical Exam - General General appearance: alert, in no apparent distress - Head Head exam: Present: atraumatic, normocephalic - Respiratory Respiratory exam: Present: normal lung sounds bilaterally. Absent: respiratory distress - Cardiovascular Cardiovascular Exam: Present: tachycardia, irregular rhythm, normal heart sounds - GI/Abdominal GI/Abdominal exam: Present: soft, tenderness (Mild periumbilical tenderness). Absent: distended, guarding, rebound, rigid - Rectal Rectal exam: Present: deferred - Neurological Exam Neurological exam: Present: alert, oriented X3 - Psychiatric Psychiatric exam: Present: normal affect, normal mood - Skin Skin exam: Present: warm, dry, intact, normal color ED Course Vital Signs 05/21/22 05/21/22 05/21/22 12:48 13:01 13:02 Temperature 99.6 F Pulse Rate 125 H 182 H 137 H Respiratory 25 H 22 20 Rate Blood Pressure 155/96 O2 Sat by Pulse 100 100 Oximetry 05/21/22 05/21/22 05/21/22 13:09 13:10 13:15 Temperature Pulse Rate 137 H 141 H Respiratory 22 33 H Rate Blood Pressure 155/96 155/96 O2 Sat by Pulse 100 100 Oximetry 05/21/22 05/21/22 05/21/22 13:31 13:45 14:01 Temperature Pulse Rate 120 H 158 H 114 H Respiratory 23 23 25 H Rate Blood Pressure 146/99 142/102 147/102 O2 Sat by Pulse 100 100 100 Oximetry 05/21/22 05/21/22 05/21/22 14:15 14:31 14:45 Temperature Pulse Rate 176 H 154 H 131 H Respiratory 20 23 26 H Rate Blood Pressure 147/102 141/106 141/106 O2 Sat by Pulse 100 100 100 Oximetry 05/21/22 05/21/22 05/21/22 15:01 15:15 15:31 Temperature Pulse Rate 116 H 150 H 157 H Respiratory 23 23 24 Rate Blood Pressure 145/100 158/101 170/77 O2 Sat by Pulse 100 100 100 Oximetry 05/21/22 05/21/22 05/21/22 15:45 16:01 16:15 Temperature Pulse Rate 157 H 81 84 Respiratory 32 H 22 22 Rate Blood Pressure 170/77 161/96 156/80 O2 Sat by Pulse 100 100 100 Oximetry 05/21/22 05/21/22 05/21/22 16:31 16:45 17:01 Temperature Pulse Rate 138 H 135 H 154 H Respiratory 22 28 H 26 H Rate Blood Pressure 150/96 150/96 160/103 O2 Sat by Pulse 100 100 100 Oximetry 05/21/22 05/21/22 05/21/22 17:02 17:15 17:31 Temperature Pulse Rate 135 H 98 H Respiratory 20 18 Rate Blood Pressure 160/103 150/83 143/88 O2 Sat by Pulse 100 98 Oximetry 05/21/22 05/21/22 17:45 18:00 Temperature Pulse Rate 147 H 114 H Respiratory 23 Rate Blood Pressure 143/88 O2 Sat by Pulse 100 Oximetry ED Medical Decision Making - Lab Data Result diagrams: 05/21/22 17:12 05/21/22 17:12 - Medical Decision Making EKG shows SVT however on the monitor patient has an irregular rhythm. Likely A. fib with RVR. Creatinine 4.9. This is near patient's baseline. Aside from kidney function chemistry is grossly unremarkable. Troponin is within normal limits. CBC grossly unremarkable. Patient given 10 mg of IV diltiazem with no response. This was followed by initiation of an amiodarone drip. Patient was also given morphine and sublingual nitroglycerin for chest pain/pressure. Heart rate currently between 110 and 125. Will admit to hospitalist. Critical care attestation.: If time is entered above; I have spent that time in minutes in the direct care of this critically ill patient, excluding procedure time. ED Disposition Clinical Impression: Atrial fibrillation with rapid ventricular response, Left-sided chest pain, Chronic kidney disease Disposition: ADMITTED INPATIENT Is pt being admited?: Yes Condition: Stable
[2022-05-21] MEDS: AMIODARONE 900 MG in DEXTROSE 5% IN WATER 482 ML IV SCH (14:20)
[2022-05-21] MEDS ORDERED: hydrALAZINE 20 MG/1 ML INJ IV PRN (16:57)
[2022-05-21] MEDS: MORPHINE 4 MG/1 ML INJ IV PRN ×2 (17:22→20:40)
[2022-05-21 17:47] LABS: Basophils # (Auto) 0.1 K/mm3 (0.0-0.1); Basophils % (Auto) 0.7 % (0.0-1.8); Eosinophils # (Auto) 0.3 K/mm3 (0.0-0.4); Eosinophils % (Auto) 3.8 % (0.0-4.3); Hematocrit 27.3 % (30.3-42.9); Hemoglobin 8.8 gm/dl (10.1-14.3); Lymphocytes # (Auto) 1.2 K/mm3 (1.2-5.4); Lymphocytes % (Auto) 16.2 % (13.4-35.0); Mean Corpuscular HGB Conc 32 % (30-34); Mean Corpuscular Volume 97 fl (79-97); Monocytes # (Auto) 0.5 K/mm3 (0.0-0.8); Monocytes % (Auto) 6.8 % (0.0-7.3); Platelet Count 265 K/mm3 (140-440); Red Blood Count 2.81 M/mm3 (3.65-5.03); Red Cell Distribution Width 17.4 % (13.2-15.2)
[2022-05-21 17:49] LABS: Albumin 3.5 g/dL (3.9-5); Calcium 9.2 mg/dL (8.4-10.2)
[2022-05-21] MEDS ORDERED: NITROGLYCERIN 0.4 MG TAB SUBL SL ONE (17:58)
[2022-05-21] MEDS ORDERED: METOCLOPRAMIDE 10 MG/2 ML INJ IV PRN (19:19)
[2022-05-21] MEDS ORDERED: ONDANSETRON 4 MG/2 ML INJ IV PRN (19:19)
[2022-05-21] MEDS ORDERED: ACETAMINOPHEN 325 MG TAB PO PRN (19:19)
--- NOTE | 2022-05-21 19:23 | History and Physical Report ---
History of Present Illness Date of examination: 05/21/22 Date of admission: 05/21/2022 Chief complaint: Palpitations since a.m. History of present illness: 67-year-old female with a history of chronic kidney disease on hemodialysis, hypertension and atrial fibrillation comes in for palpitations since a.m. Patient was undergoing hemodialysis. Patient sent in because of her heart rate being a 150s. Patient has a history of atrial fibrillation. ED course in the emergency room EKG showed heart rate of 173/min with rapid A. fib with RVR patient was initiated on amiodarone drip. No chest pain. No orthopnea. - Past Medical History --Hypertension: Yes --CVA: Yes (right sided weakness) --Heart Attack/AMI: Yes (1 stent) --Congestive Heart Failure: Yes --Diabetes: Yes --Renal Disease: Yes (RENAL INSUFFICIENCY- stent left kidney) --Psychiatric Treatment: Yes (BIPOLAR/SCHIZOPHRENIA) --COPD: Yes --Additional medical history: HIGH CHOLESTEROL - Surgical History --Coronary Stent: Yes --Pacemaker: Yes --Additional Surgical History: stent placement x 2 in 2014, knee surgery 11/2017 - Social History Smoking Status: Current Every Day Smoker - Family history --Htn - Medications Home Medications: Home Medications Medication Instructions Recorded Confirmed Last Taken Type Gabapentin 100 mg PO BID 03/02/22 04/06/22 Unknown History Pantoprazole [Protonix TAB] 40 mg PO QDAY 03/02/22 04/06/22 03/02/22 10:00 History methIMAzole [Methimazole] 10 mg PO TID 03/10/22 04/06/22 Unknown History AtorvaSTATin [Lipitor] 20 mg PO QHS #30 tablet 03/12/22 04/06/22 Unknown Rx ISOSORBIDE MONOnitrate [Imdur ER] 60 mg PO QDAY #30 tablet 03/12/22 04/06/22 Unknown Rx Losartan [Cozaar] 50 mg PO QDAY #30 tab 03/12/22 04/06/22 Unknown Rx Metoprolol [Lopressor TAB] 100 mg PO BID #60 tablet 03/12/22 04/06/22 Unknown Rx Sennosides/Docusate [Senokot S] 1 tab PO DAILY #30 tablet 03/12/22 04/06/22 Unknown Rx hydrALAZINE [Apresoline TAB] 50 mg PO Q8HR #120 tablet 03/12/22 04/06/22 Unknown Rx Amiodarone [Cordarone 200 MG TAB] 200 mg PO . DIRECTED #60 tablet 03/23/22 04/06/22 Unknown Rx Apixaban [Eliquis] 2.5 mg PO BID #60 tab 03/23/22 04/06/22 Unknown Rx Aspirin EC [Ecotrin] 325 mg PO QDAY 30 Days #30 tablet 04/02/22 04/06/22 Unknown Rx Nitroglycerin [Nitrostat] 0.4 mg SL .Q5MIN PRN 30 Days #30 04/02/22 04/06/22 Unknown Rx tablet Review of Systems ROS: Stated complaint: CHEST PAIN Other details as noted in HPI Constitutional: see HPI Respiratory: denies: cough, shortness of breath, wheezing Cardiovascular: chest pain, palpitations Gastrointestinal: denies: abdominal pain, nausea, vomiting Genitourinary: denies: urgency, dysuria, discharge Musculoskeletal: denies: back pain, joint swelling, arthralgia Skin: denies: rash, lesions Neurological: denies: headache, weakness Psychiatric: denies: anxiety, depression Medications and Allergies Allergies Allergy/AdvReac Type Severity Reaction Status Date / Time Iodinated Contrast Media AdvReac Intermediate Swelling Verified 04/11/22 09:45 apple AdvReac Hives Verified 04/11/22 09:45 shell fish Allergy Swelling Uncoded 04/11/22 09:45 Home Medications Medication Instructions Recorded Confirmed Last Taken Type Gabapentin 100 mg PO BID 03/02/22 04/06/22 Unknown History Pantoprazole [Protonix TAB] 40 mg PO QDAY 03/02/22 04/06/22 03/02/22 10:00 Histo ry methIMAzole [Methimazole] 10 mg PO TID 03/10/22 04/06/22 Unknown History AtorvaSTATin [Lipitor] 20 mg PO QHS #30 tablet 03/12/22 04/06/22 Unknown Rx ISOSORBIDE MONOnitrate [Imdur ER] 60 mg PO QDAY #30 tablet 03/12/22 04/06/22 Unknown Rx Losartan [Cozaar] 50 mg PO QDAY #30 tab 03/12/22 04/06/22 Unknown Rx Metoprolol [Lopressor TAB] 100 mg PO BID #60 tablet 03/12/22 04/06/22 Unknown Rx Sennosides/Docusate [Senokot S] 1 tab PO DAILY #30 tablet 03/12/22 04/06/22 Unknown Rx hydrALAZINE [Apresoline TAB] 50 mg PO Q8HR #120 tablet 03/12/22 04/06/22 Unknown Rx Amiodarone [Cordarone 200 MG TAB] 200 mg PO . DIRECTED #60 tablet 03/23/22 04/06/22 Unknown Rx Apixaban [Eliquis] 2.5 mg PO BID #60 tab 03/23/22 04/06/22 Unknown Rx Aspirin EC [Ecotrin] 325 mg PO QDAY 30 Days #30 tablet 04/02/22 04/06/22 Unknown Rx Nitroglycerin [Nitrostat] 0.4 mg SL .Q5MIN PRN 30 Days #30 04/02/22 04/06/22 Unknown Rx tablet Active Meds: Active Medications Hydralazine HCl (Hydralazine 20 Mg/1 Ml Inj) 10 mg IV Q4HR PRN PRN Reason: Hypertension Last Admin: 05/21/22 17:02 Dose: 10 mg Amiodarone HCl 900 mg/ (Dextrose) 500 mls @ 33.333 mls/hr IV DIRECT [facility]; Protocol Last Admin: 05/21/22 14:20 Dose: 1 mg/min, 33.333 mls/hr Morphine Sulfate (Morphine 4 Mg/1 Ml Inj) 4 mg IV Q4HR PRN PRN Reason: Pain, Chest/Cardiac Last Admin: 05/21/22 17:22 Dose: 4 mg Exam - Constitutional Vitals: Temp Pulse Resp BP Pulse Ox 99.6 F 114 H 23 143/88 100 05/21/22 13:02 05/21/22 18:00 05/21/22 17:45 05/21/22 17:45 05/21/22 17:45 General appearance: Present: mild distress - EENT Eyes: Present: PERRL ENT: hearing intact, clear oral mucosa - Neck Neck: Present: supple, normal ROM - Respiratory Respiratory effort: normal Respiratory: bilateral: CTA - Cardiovascular Heart rate: 150 Rhythm: irregularly irregular Heart Sounds: Present: S1 & S2. Absent: rub, click - Extremities Extremities: no ischemia, pulses intact, pulses symmetrical, No edema Peripheral Pulses: within normal limits - Abdominal General gastrointestinal: Present: soft, non-tender, non-distended, normal bowel sounds Female genitourinary: Present: normal - Integumentary Integumentary: Present: clear, warm, dry - Musculoskeletal Musculoskeletal: gait normal, strength equal bilaterally - Psychiatric Psychiatric: appropriate mood/affect, intact judgment & insight - Neurologic Neurologic: CNII-XII intact, moves all extremities HEART Score - HEART Score History: Moderately suspicious Age: > 65 Risk factors: > 3 risk factors or hx of atherosclerotic disease Troponin: Troponin T 0.016 ng/mL (0.00-0.029) 05/21/22 17:12 Troponin: 1-3x normal limit - Critical Actions Critical Actions: 4-6 pts:12-16.6% risk of adverse cardiac event. Should be admitted Results - Labs CBC & Chem 7: 05/21/22 22:43 05/21/22 22:43 Labs: Laboratory Last Values WBC 7.5 K/mm3 (4.5-11.0) 05/21/22 17:12 RBC 2.81 M/mm3 (3.65-5.03) L 05/21/22 17:12 Hgb 8.8 gm/dl (10.1-14.3) L 05/21/22 17:12 Hct 27.3 % (30.3-42.9) L 05/21/22 17:12 MCV 97 fl (79-97) 05/21/22 17:12 MCH 31 pg (28-32) 05/21/22 17:12 MCHC 32 % (30-34) 05/21/22 17:12 RDW 17.4 % (13.2-15.2) H 05/21/22 17:12 Plt Count 265 K/mm3 (140-440) 05/21/22 17:12 Lymph % (Auto) 16.2 % (13.4-35.0) 05/21/22 17:12 [place] % (Auto) 6.8 % (0.0-7.3) 05/21/22 17:12 Eos % (Auto) 3.8 % (0.0-4.3) 05/21/22 17:12 Baso % (Auto) 0.7 % (0.0-1.8) 05/21/22 17:12 Lymph # (Auto) 1.2 K/mm3 (1.2-5.4) 05/21/22 17:12 [place] # (Auto) 0.5 K/mm3 (0.0-0.8) 05/21/22 17:12 Eos # (Auto) 0.3 K/mm3 (0.0-0.4) 05/21/22 17:12 Baso # (Auto) 0.1 K/mm3 (0.0-0.1) 05/21/22 17:12 Seg Neutrophils % 72.5 % (40.0-70.0) H 05/21/22 17:12 Seg Neutrophils # 5.5 K/mm3 (1.8-7.7) 05/21/22 17:12 Sodium 143 mmol/L (137-145) 05/21/22 17:12 Potassium 3.7 mmol/L (3.6-5.0) 05/21/22 17:12 Chloride 100.9 mmol/L (98-107) 05/21/22 17:12 Carbon Dioxide 28 mmol/L (22-30) 05/21/22 17:12 Anion Gap 18 mmol/L 05/21/22 17:12 BUN 31 mg/dL (7-17) H 05/21/22 17:12 Creatinine 4.9 mg/dL (0.6-1.2) H 05/21/22 17:12 Estimated GFR 11 ml/min 05/21/22 17:12 BUN/Creatinine Ratio 6 % 05/21/22 17:12 Glucose 87 mg/dL (65-100) 05/21/22 17:12 Calcium 9.2 mg/dL (8.4-10.2) 05/21/22 17:12 Total Bilirubin 0.50 mg/dL (0.1-1.2) 05/21/22 17:12 AST 13 units/L (5-40) 05/21/22 17:12 ALT 8 units/L (7-56) 05/21/22 17:12 Alkaline Phosphatase 83 units/L (35-129) 05/21/22 17:12 Troponin T 0.016 ng/mL (0.00-0.029) 05/21/22 17:12 Total Protein 5.8 g/dL (6.3-8.2) L 05/21/22 17:12 Albumin 3.5 g/dL (3.9-5) L 05/21/22 17:12 Albumin/Globulin Ratio 1.5 % 05/21/22 17:12 - Imaging and Cardiology EKG: report reviewed (SVT with heart rate of 173 from, probable LVH) Assessment and Plan Advance Directives: Yes (Full code) VTE prophylaxis?: Chemical Plan of care discussed with patient/family: Yes - Patient Problems (1) Atrial fibrillation with rapid ventricular response Current Visit: Yes Status: Acute Plan to address problem: Patient initiated on amiodarone drip without titration Patient on Eliquis (2) Hypertension Current Visit: Yes Status: Chronic Qualifiers: Hypertension type: primary hypertension Qualified Code(s): I10 - Essential (primary) hypertension Plan to address problem: Continue antihypertensives and adjust medications as necessary (3) End-stage renal disease on hemodialysis Current Visit: No Status: Chronic Plan to address problem: Continue hemodialysis as per schedule Nephrology consult requested (4) Coronary artery disease Current Visit: No Status: Chronic Qualifiers: Coronary Disease-Associated Artery/Lesion type: [place] artery Circle vs. transplanted heart: [place] heart Plan to address problem: Continue isosorbide mononitrate and aspirin (5) Hyperlipidemia Current Visit: Yes Status: Chronic Qualifiers: Hyperlipidemia type: mixed hyperlipidemia Qualified Code(s): E78.2 - Mixed hyperlipidemia Plan to address problem: Continue statins (6) DVT prophylaxis Current Visit: Yes Status: Acute Plan to address problem: On Eliquis and GI prophylaxis (7) Advance care planning Current Visit: Yes Status: Acute Plan to address problem: Disease education conducted care plan discussed diagnosis discussed prognosis discussed. Patient is full code. Patient acknowledges understanding and agreement with care plan. +30 minutes.
[2022-05-21] MEDS ORDERED: NON-FORMULARY EACH (Apixaban 2.5 MG Tablet) PO SCH (22:00)
[2022-05-21] MEDS: methIMAzole 5 MG TAB PO SCH (22:13)
[2022-05-21] MEDS: METOPROLOL TARTRATE 100 MG TAB PO SCH (22:13)
[2022-05-21] MEDS: GABAPENTIN 100 MG CAP PO SCH (22:13)
[2022-05-21] MEDS: hydrALAZINE 25 MG TAB PO SCH (22:14)
[2022-05-21] MEDS: oxyCODONE /ACETAMINOPHEN 5-325MG TAB PO PRN (22:14)
[2022-05-21] MEDS: APIXABAN 2.5 MG TAB PO SCH (22:15)
[2022-05-21 23:05] LABS: Hematocrit 28.6 % (30.3-42.9); Hemoglobin 9.2 gm/dl (10.1-14.3); Mean Corpuscular HGB Conc 32 % (30-34); Mean Corpuscular Volume 98 fl (79-97); Platelet Count 250 K/mm3 (140-440); Red Blood Count 2.93 M/mm3 (3.65-5.03); Red Cell Distribution Width 18.2 % (13.2-15.2)
[2022-05-21 23:13] LABS: INR 1.04 (0.87-1.13)
[2022-05-21 23:14] LABS: Partial Thromboplastin Time 36.9 Sec. (24.2-36.6)
[2022-05-22] MEDS: hydrALAZINE 25 MG TAB PO SCH ×3 (06:23→23:07)
--- NOTE | 2022-05-22 09:00 | Electrocardiograph Report ---
[facility] Test Date: 2022-05-21 Test Time: 12:47:27 Pat Name: TEETEE MARTINEZ Department: Room: A480 Gender: F [employer] Picture [employer]: EDA : 1955 Requested By: CHEMO ROWE Order Number: [id number] Reading MD: Mike Davis Measurements Intervals [place] Rate: 173 P: 88 AR: 121 QRS: -30 QRSD: 78 T: 81 QT: 298 QTc: 505 Interpretive Statements afib with rvr Probable LVH with secondary repol abnrm Compared to ECG 04/25/2022 12:48:58 Left ventricular hypertrophy now present Q waves now present Ventricular premature complex(es) no longer present ST (T wave) deviation no longer present Myocardial infarct finding no longer present Electronically Signed On 05-22-2022 8:59:55 EDT by Mike Davis
[2022-05-22] MEDS: oxyCODONE /ACETAMINOPHEN 5-325MG TAB PO PRN ×2 (10:15→23:19)
[2022-05-22] MEDS: methIMAzole 5 MG TAB PO SCH ×3 (10:15→23:07)
[2022-05-22] MEDS: LOSARTAN 50 MG TAB PO SCH (10:20)
[2022-05-22] MEDS: APIXABAN 2.5 MG TAB PO SCH ×2 (10:20→23:08)
[2022-05-22] MEDS: ASPIRIN EC 325 MG TAB PO SCH (10:20)
[2022-05-22] MEDS: AMIODARONE 200 MG TAB PO SCH (10:20)
[2022-05-22] MEDS: SENNOSIDES/DOCUSATE SODIUM 8.6/50 MG TAB PO SCH (10:20)
[2022-05-22] MEDS: PANTOPRAZOLE 40 MG TAB PO SCH (10:20)
[2022-05-22] MEDS: GABAPENTIN 100 MG CAP PO SCH ×2 (10:20→23:07)
[2022-05-22] MEDS: METOPROLOL TARTRATE 100 MG TAB PO SCH ×2 (10:20→23:09)
[2022-05-22 10:59] LABS: Basophils # (Auto) 0.1 K/mm3 (0.0-0.1); Basophils % (Auto) 0.8 % (0.0-1.8); Eosinophils # (Auto) 0.1 K/mm3 (0.0-0.4); Eosinophils % (Auto) 1.4 % (0.0-4.3); Hemoglobin 9.2 gm/dl (10.1-14.3); Lymphocytes # (Auto) 1.1 K/mm3 (1.2-5.4); Lymphocytes % (Auto) 12.2 % (13.4-35.0); Mean Corpuscular HGB Conc 32 % (30-34); Mean Corpuscular Volume 99 fl (79-97); Monocytes # (Auto) 0.8 K/mm3 (0.0-0.8); Monocytes % (Auto) 8.7 % (0.0-7.3); Platelet Count 251 K/mm3 (140-440); Red Blood Count 2.93 M/mm3 (3.65-5.03); Red Cell Distribution Width 18.1 % (13.2-15.2)
--- NOTE | 2022-05-22 11:05 | Consultation ---
History of Present Illness - Reason for Consult Consult date: 05/22/22 - History of Present Illness 67yr F with h/o ESRD on HD at [facility], [facility], does not know her Workers Compensation [employer]. Pt was at the Dialysis Clinic awaiting treatment when she developed CP (Heaviness in her chest), Palpitation & Nausea. CP was eventually relieved by NTG per EMS enroute to ED but pt still had A Fib with RVR in ED. Pt has h/o Chronic A fib on Eliquis. Feels much better now Past History Past Medical History: atrial fib, ESRD, hyperthyroidism, hypertension Past Surgical History: Other (Rt arm AVG) Social history: denies: smoking Family history: hypertension Medications and Allergies Allergies Allergy/AdvReac Type Severity Reaction Status Date / Time Iodinated Contrast Media AdvReac Intermediate Swelling Verified 04/11/22 09:45 apple AdvReac Hives Verified 04/11/22 09:45 shell fish Allergy Swelling Uncoded 04/11/22 09:45 Home Medications Medication Instructions Recorded Confirmed Last Taken Type Gabapentin 100 mg PO BID 03/02/22 04/06/22 Unknown History Pantoprazole [Protonix TAB] 40 mg PO QDAY 03/02/22 04/06/22 03/02/22 10:00 History methIMAzole [Methimazole] 10 mg PO TID 03/10/22 04/06/22 Unknown History AtorvaSTATin [Lipitor] 20 mg PO QHS #30 tablet 03/12/22 04/06/22 Unknown Rx ISOSORBIDE MONOnitrate [Imdur ER] 60 mg PO QDAY #30 tablet 03/12/22 04/06/22 Un known Rx Losartan [Cozaar] 50 mg PO QDAY #30 tab 03/12/22 04/06/22 Unknown Rx Metoprolol [Lopressor TAB] 100 mg PO BID #60 tablet 03/12/22 04/06/22 Unknown Rx Sennosides/Docusate [Senokot S] 1 tab PO DAILY #30 tablet 03/12/22 04/06/22 Unknown Rx hydrALAZINE [Apresoline TAB] 50 mg PO Q8HR #120 tablet 03/12/22 04/06/22 Unknown Rx Amiodarone [Cordarone 200 MG TAB] 200 mg PO . DIRECTED #60 tablet 03/23/22 04/06/22 Unknown Rx Apixaban [Eliquis] 2.5 mg PO BID #60 tab 03/23/22 04/06/22 Unknown Rx Aspirin EC [Ecotrin] 325 mg PO QDAY 30 Days #30 tablet 04/02/22 04/06/22 Unknown Rx Nitroglycerin [Nitrostat] 0.4 mg SL .Q5MIN PRN 30 Days #30 04/02/22 04/06/22 Unknown Rx tablet Active Meds: Active Medications Acetaminophen (Acetaminophen 325 Mg Tab) 650 mg PO Q4H PRN PRN Reason: Pain MILD(1-3)/Fever >100.5/SILVA Amiodarone HCl (Amiodarone 200 Mg Tab) 200 mg PO DAILY [facility] Apixaban (Apixaban 2.5 Mg Tab) 2.5 mg PO Q12HR [facility]; Protocol Last Admin: 05/21/22 22:15 Dose: 2.5 mg Aspirin (Aspirin Ec 325 Mg Tab) 325 mg PO QDAY [facility] Atorvastatin Calcium (Atorvastatin 20 Mg Tab) 20 mg PO QHS [facility] Last Admin: 05/21/22 22:14 Dose: 20 mg Gabapentin (Gabapentin 100 Mg Cap) 100 mg PO BID [facility] Last Admin: 05/21/22 22:13 Dose: 100 mg Hydralazine HCl (Hydralazine 20 Mg/1 Ml Inj) 10 mg IV Q4HR PRN PRN Reason: SBP >/=160; DBP >/=100 Last Admin: 05/21/22 17:02 Dose: 10 mg Hydralazine HCl (Hydralazine 25 Mg Tab) 50 mg PO Q8HR [facility] Last Admin: 05/22/22 06:23 Dose: 50 mg Amiodarone HCl 900 mg/ (Dextrose) 500 mls @ 33.333 mls/hr IV DIRECT [facility]; Protocol Last Titration: 05/21/22 20:37 Dose: 0.5 mg/min, 16.667 mls/hr Isosorbide Mononitrate (Isosorbide Mononitrate Er 60 Mg Tab) 60 mg PO QDAY [facility] Losartan Potassium (Losartan 50 Mg Tab) 50 mg PO QDAY [facility] Methimazole (Methimazole 5 Mg Tab) 10 mg PO TID [facility] Last Admin: 05/21/22 22:13 Dose: 10 mg Metoclopramide HCl (Metoclopramide 10 Mg/2 Ml Inj) 10 mg IV Q6H PRN PRN Reason: Nausea And Vomiting Metoprolol Tartrate (Metoprolol Tartrate 100 Mg Tab) 100 mg PO BID [facility] Last Admin: 05/21/22 22:13 Dose: 100 mg Morphine Sulfate (Morphine 4 Mg/1 Ml Inj) 4 mg IV Q4HR PRN PRN Reason: Pain, Chest/Cardiac Last Admin: 05/21/22 20:40 Dose: 4 mg Ondansetron HCl (Ondansetron 4 Mg/2 Ml Inj) 4 mg IV Q8H PRN PRN Reason: Nausea And Vomiting Oxycodone/Acetaminophen (Oxycodone /Acetaminophen 5-325mg Tab) 1 tab PO Q6H PRN PRN Reason: Pain, Moderate (4-6) Last Admin: 05/21/22 22:14 Dose: 1 tab Pantoprazole Sodium (Pantoprazole 40 Mg Tab) 40 mg PO QDAY [facility] Senna/Docusate Sodium (Sennosides/Docusate Sodium 8.6/50 Mg Tab) 1 tab PO DAILY [facility] Sodium Chloride (Sodium Chloride 0.9% 10 Ml Flush Syringe) 10 ml IV BID [facility] Last Admin: 05/22/22 01:30 Dose: Not Given Sodium Chloride (Sodium Chloride 0.9% 10 Ml Flush Syringe) 10 ml IV PRN PRN PRN Reason: LINE FLUSH Review of Systems Constitutional: no fever, no chills, no fatigue Cardiovascular: chest pain (Resolved s/p NTG), palpitations, shortness of breath Respiratory: shortness of breath, no cough, no congestion Gastrointestinal: nausea, no abdominal pain, no vomiting Exam - Vital Signs Vital signs: Vital Signs Pulse Resp 125 H 25 H 05/21/22 12:48 05/21/22 12:48 - General Appearance General appearance: other (Awake & alert) EENT: PERRL, hearing intact, vision intact Neck: Present: neck supple. Absent: JVD/HJR Respiratory: Other (Good air entry) Heart: irregularly irregular, tachycardia, S1S2 Gastrointestinal: Present: normal Integumentary: no rash Neurologic: no focal deficit, alert and oriented x3 Musculoskeletal: Present: other (No edema) Psychiatric: mood/affect appropriate Results - Lab Results 05/21/22 22:43 05/21/22 22:43 Most recent lab results Calcium 9.2 mg/dL (8.4-10.2) 05/21/22 17:12 Assessment and Plan ESRD - HD in am HTN - Caution with meds as BP low normal CP - W/u & Mx per Cardiology A Fib - Resolved RVR, on meds including Eliquis. Check TFTs & TSH Thanks very much, will f/u with you
[2022-05-22] MEDS ORDERED: HEPARIN 10,000 UNIT/1 ML VIAL IV PRN (11:23)
[2022-05-22] MEDS ORDERED: HEPARIN 10,000 UNITS/10 ML VIAL IV PRN (11:23)
[2022-05-22] MEDS ORDERED: SODIUM CHLORIDE 0.9% 100 ML IV PRN (11:23)
--- NOTE | 2022-05-22 13:21 | Consultation ---
History of Present Illness Consult date: 05/22/22 Consult reason: atrial fibrillation History of present illness: The patient is a 67-year-old woman with end-stage renal disease on hemodialysis, paroxysmal atrial fibrillation, and coronary artery disease. With regards to her paroxysmal atrial fibrillation and sick sinus syndrome, she has a dual chamber pacemaker in situ, is on rhythm control therapy and oral anticoagulation with Eliquis. With regards to her coronary artery disease she has stents implanted in the proximal and distal segments of the LAD many years ago, stents were widely patent on a cardiac catheterization done in 2017. Serial left ventricular function assessments over the years have demonstrated well-preserved left ventricular systolic function with ejection fraction 50 to 55%. Patient presents to the hospital at this time with acute onset palpitations and shortness of breath. There was no dizziness or syncope. She denies any missed dialysis sessions. Yesterday was her dialysis day when the symptoms began and she presented to the emergency room for evaluation. She was found with rapid atrial fibrillation, and with medical therapy, the atrial fibrillation has reverted. At this time, the patient is in atrial paced rhythm with [place] QRS complexes at 70 bpm. She feels much better after her reversion from atrial fibrillation. Past History Past Medical History: atrial fib, ESRD, hyperthyroidism, hypertension Past Surgical History: Other (Rt arm AVG) Social history: denies: smoking Family history: hypertension Medications and Allergies Allergies Allergy/AdvReac Type Severity Reaction Status Date / Time Iodinated Contrast Media AdvReac Intermediate Swelling Verified 04/11/22 09:45 apple AdvReac Hives Verified 04/11/22 09:45 shell fish Allergy Swelling Uncoded 04/11/22 09:45 Home Medications Medication Instructions Recorded Confirmed Last Taken Type Gabapentin 100 mg PO BID 03/02/22 04/06/22 Unknown History Pantoprazole [Protonix TAB] 40 mg PO QDAY 03/02/22 04/06/22 03/02/22 10:00 History methIMAzole [Methimazole] 10 mg PO TID 03/10/22 04/06/22 Unknown History AtorvaSTATin [Lipitor] 20 mg PO QHS #30 tablet 03/12/22 04/06/22 Unknown Rx ISOSORBIDE MONOnitrate [Imdur ER] 60 mg PO QDAY #30 tablet 03/12/22 04/06/22 Unknown Rx Losartan [Cozaar] 50 mg PO QDAY #30 tab 03/12/22 04/06/22 Unknown Rx Metoprolol [Lopressor TAB] 100 mg PO BID #60 tablet 03/12/22 04/06/22 Unknown Rx Sennosides/Docusate [Senokot S] 1 tab PO DAILY #30 tablet 03/12/22 04/06/22 Unknown Rx hydrALAZINE [Apresoline TAB] 50 mg PO Q8HR #120 tablet 03/12/22 04/06/22 Unknown Rx Amiodarone [Cordarone 200 MG TAB] 200 mg PO . DIRECTED #60 tablet 03/23/22 04/06/22 Unknown Rx Apixaban [Eliquis] 2.5 mg PO BID #60 tab 03/23/22 04/06/22 Unknown Rx Aspirin EC [Ecotrin] 325 mg PO QDAY 30 Days #30 tablet 04/02/22 04/06/22 Unknown Rx Nitroglycerin [Nitrostat] 0.4 mg SL .Q5MIN PRN 30 Days #30 04/02/22 04/06/22 Unknown Rx tablet Active Meds: Active Medications Acetaminophen (Acetaminophen 325 Mg Tab) 650 mg PO Q4H PRN PRN Reason: Pain MILD(1-3)/Fever >100.5/SILVA Amiodarone HCl (Amiodarone 200 Mg Tab) 200 mg PO DAILY [facility] Last Admin: 05/22/22 10:20 Dose: 200 mg Apixaban (Apixaban 2.5 Mg Tab) 2.5 mg PO Q12HR [facility]; Protocol Last Admin: 05/22/22 10:20 Dose: 2.5 mg Aspirin (Aspirin Ec 325 Mg Tab) 325 mg PO QDAY [facility] Last Admin: 05/22/22 10:20 Dose: 325 mg Atorvastatin Calcium (Atorvastatin 20 Mg Tab) 20 mg PO QHS [facility] Last Admin: 05/21/22 22:14 Dose: 20 mg Gabapentin (Gabapentin 100 Mg Cap) 100 mg PO BID [facility] Last Admin: 05/22/22 10:20 Dose: 100 mg Heparin Sodium (Porcine) (Heparin 10,000 Units/10 Ml Vial) 2,000 unit IV KARLENE PRN PRN Reason: hemodialysis Heparin Sodium (Porcine) (Heparin 10,000 Unit/1 Ml Vial) 5,000 unit IV KARLENE PRN PRN Reason: hemodialysis Hydralazine HCl (Hydralazine 20 Mg/1 Ml Inj) 10 mg IV Q4HR PRN PRN Reason: SBP >/=160; DBP >/=100 Last Admin: 05/21/22 17:02 Dose: 10 mg Hydralazine HCl (Hydralazine 25 Mg Tab) 50 mg PO Q8HR [facility] Last Admin: 05/22/22 06:23 Dose: 50 mg Amiodarone HCl 900 mg/ (Dextrose) 500 mls @ 33.333 mls/hr IV DIRECT [facility]; Protocol Last Titration: 05/21/22 20:37 Dose: 0.5 mg/min, 16.667 mls/hr Sodium Chloride (Nacl 0.9%) 100 mls @ 999 mls/hr IV KARLENE PRN PRN Reason: Hypotension Isosorbide Mononitrate (Isosorbide Mononitrate Er 60 Mg Tab) 60 mg PO QDAY [facility] Last Admin: 05/22/22 10:20 Dose: 60 mg Losartan Potassium (Losartan 50 Mg Tab) 50 mg PO QDAY [facility] Last Admin: 05/22/22 10:20 Dose: 50 mg Methimazole (Methimazole 5 Mg Tab) 10 mg PO TID [facility] Last Admin: 05/22/22 10:15 Dose: 10 mg Metoclopramide HCl (Metoclopramide 10 Mg/2 Ml Inj) 10 mg IV Q6H PRN PRN Reason: Nausea And Vomiting Metoprolol Tartrate (Metoprolol Tartrate 100 Mg Tab) 100 mg PO BID [facility] Last Admin: 05/22/22 10:20 Dose: 100 mg Morphine Sulfate (Morphine 4 Mg/1 Ml Inj) 4 mg IV Q4HR PRN PRN Reason: Pain, Chest/Cardiac Last Admin: 05/21/22 20:40 Dose: 4 mg Ondansetron HCl (Ondansetron 4 Mg/2 Ml Inj) 4 mg IV Q8H PRN PRN Reason: Nausea And Vomiting Oxycodone/Acetaminophen (Oxycodone /Acetaminophen 5-325mg Tab) 1 tab PO Q6H PRN PRN Reason: Pain, Moderate (4-6) Last Admin: 05/22/22 10:15 Dose: 1 tab Pantoprazole Sodium (Pantoprazole 40 Mg Tab) 40 mg PO QDAY [facility] Last Admin: 05/22/22 10:20 Dose: 40 mg Senna/Docusate Sodium (Sennosides/Docusate Sodium 8.6/50 Mg Tab) 1 tab PO DAILY [facility] Last Admin: 05/22/22 10:20 Dose: 1 tab Sodium Chloride (Sodium Chloride 0.9% 10 Ml Flush Syringe) 10 ml IV BID [facility] Last Admin: 05/22/22 01:30 Dose: Not Given Sodium Chloride (Sodium Chloride 0.9% 10 Ml Flush Syringe) 10 ml IV PRN PRN PRN Reason: LINE FLUSH Review of Systems Cardiovascular: palpitations, rapid/irregular heart beat, lightheadedness, shortness of breath, no chest pain, no orthopnea, no edema, no syncope Physical Examination Vital Signs Pulse Resp 125 H 25 H 05/21/22 12:48 05/21/22 12:48 General appearance: no acute distress HEENT: Positive: PERRL Neck: Positive: neck supple Cardiac: Positive: Reg Rate and Rhythm Lungs: Positive: Decreased Breath Sounds Neuro: Positive: Grossly Intact Abdomen: Positive: Soft Female genitourinary: deferred Skin: Positive: Clear Extremities: Absent: edema Results 05/22/22 10:17 05/22/22 10:17 Cardiac Enzymes 05/21/22 Range/Units 17:12 AST 13 (5-40) units/L Coagulation 05/21/22 Range/Units 22:43 PT 14.8 (12.2-14.9) Sec. INR 1.04 (0.87-1.13) APTT 36.9 H (24.2-36.6) Sec. CBC 05/21/22 05/21/22 05/22/22 Range/Units 17:12 22:43 10:17 WBC 7.5 8.8 9.0 (4.5-11.0) K/mm3 RBC 2.81 L 2.93 L 2.93 L (3.65-5.03) M/mm3 Hgb 8.8 L 9.2 L 9.2 L (10.1-14.3) gm/dl Hct 27.3 L 28.6 L 29.0 L (30.3-42.9) % Plt Count 265 250 251 (140-440) K/mm3 Lymph # (Auto) 1.2 1.1 L (1.2-5.4) K/mm3 [place] # (Auto) 0.5 0.8 (0.0-0.8) K/mm3 Eos # (Auto) 0.3 0.1 (0.0-0.4) K/mm3 Baso # (Auto) 0.1 0.1 (0.0-0.1) K/mm3 Comprehensive Metabolic Panel 05/21/22 05/21/22 05/22/22 Range/Units 17:12 22:43 10:17 Sodium 143 141 (137-145) mmol/L Potassium 3.7 5.3 H D (3.6-5.0) mmol/L Chloride 100.9 96.6 L (98-107) mmol/L Carbon Dioxide 28 29 (22-30) mmol/L BUN 31 H 40 H (7-17) mg/dL Creatinine 4.9 H 4.9 H 5.8 H (0.6-1.2) mg/dL Glucose 87 125 H (65-100) mg/dL Calcium 9.2 9.0 (8.4-10.2) mg/dL AST 13 (5-40) units/L ALT 8 (7-56) units/L Alkaline Phosphatase 83 (35-129) units/L Total Protein 5.8 L (6.3-8.2) g/dL Albumin 3.5 L (3.9-5) g/dL EKG interpretations - Telemetry EKG Rhythm: Atrial Fibrillation (With rapid ventricular response) Assessment and Plan - Patient Problems (1) Atrial fibrillation with rapid ventricular response Current Visit: Yes Status: Acute Plan to address problem: Patient with a history of paroxysmal atrial fibrillation, presents with symptomatic rapid atrial fibrillation. Currently the atrial fibrillation has reverted and she is not an atrial paced rhythm at 70 bpm. We will continue rhythm control management, and oral anticoagulation with Eliquis as tolerated. We will order a TSH level, as well as an echocardiogram for left ventricular function reassessment. (2) Coronary artery disease Current Visit: Yes Status: Acute Plan to address problem: Patient has a history of coronary artery disease, status post remote proximal and distal LAD stents which were widely patent on a repeat cardiac catheterization in 2017. More recently, a thallium stress test done just 3 months ago in this hospital showed normal coronary perfusion. Patient has no current symptoms of angina, will continue guideline directed medical therapy and aggressive risk factor modification.
[2022-05-22 14:49] LABS: Hepatitis B Surface Antigen Non-Reactive (Negative); Hepatitis C Virus Antibody Non-Reactive (NonReactive)
[2022-05-22 15:10] LABS: Free T4 (Free Thyroxine) 2.01 ng/dL (0.76-1.46)
[2022-05-22] MEDS: AMIODARONE 900 MG in DEXTROSE 5% IN WATER 482 ML IV SCH (19:48)
[2022-05-23] MEDS: hydrALAZINE 25 MG TAB PO SCH ×2 (06:00→13:43)
[2022-05-23 06:10] LABS: Albumin 3.7 g/dL (3.9-5); Calcium 8.4 mg/dL (8.4-10.2)
[2022-05-23 06:20] LABS: Hematocrit 26.9 % (30.3-42.9); Hemoglobin 8.8 gm/dl (10.1-14.3); Mean Corpuscular HGB Conc 33 % (30-34); Mean Corpuscular Volume 97 fl (79-97); Platelet Count 236 K/mm3 (140-440); Red Blood Count 2.78 M/mm3 (3.65-5.03); Red Cell Distribution Width 17.9 % (13.2-15.2)
[2022-05-23] MEDS: METOPROLOL TARTRATE 100 MG TAB PO SCH (09:23)
[2022-05-23] MEDS: LOSARTAN 50 MG TAB PO SCH (09:23)
[2022-05-23] MEDS: methIMAzole 5 MG TAB PO SCH ×2 (09:23→13:44)
[2022-05-23] MEDS: PANTOPRAZOLE 40 MG TAB PO SCH (09:23)
[2022-05-23] MEDS: AMIODARONE 200 MG TAB PO SCH (09:23)
[2022-05-23] MEDS: GABAPENTIN 100 MG CAP PO SCH (09:23)
[2022-05-23] MEDS: ASPIRIN EC 325 MG TAB PO SCH (09:24)
[2022-05-23] MEDS: APIXABAN 2.5 MG TAB PO SCH (09:25)
[2022-05-23] MEDS: SENNOSIDES/DOCUSATE SODIUM 8.6/50 MG TAB PO SCH (09:25)
--- NOTE | 2022-05-23 10:47 | Progress Note ---
Assessment and Plan - Patient Problems (1) Atrial fibrillation with rapid ventricular response Current Visit: Yes Status: Acute Plan to address problem: Patient with a history of paroxysmal atrial fibrillation, presents with symptomatic rapid atrial fibrillation. Currently the atrial fibrillation has reverted and she has a stable sinus rhythm. We will continue rhythm control management with amiodarone, and oral anticoagulation with Eliquis as tolerated. TSH level is normal at 1.17. Echocardiogram is pending for left ventricular function reassessment. (2) Coronary artery disease Current Visit: Yes Status: Acute Plan to address problem: Patient has a history of coronary artery disease, status post remote proximal and distal LAD stents which were widely patent on a repeat cardiac catheterization in 2017. More recently, a thallium stress test done just 3 months ago in this hospital showed normal coronary perfusion. Patient has no current symptoms of angina, will continue guideline directed medical therapy and aggressive risk factor modification. Subjective Date of service: 05/23/22 Principal diagnosis: Atrial fibrillation Interval history: Patient is comfortable, dialysis planned for today. 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 Objective Vital Signs Temp Pulse Resp BP Pulse Ox 05/23/22 09:23 70 117/65 05/23/22 04:00 97.5 F L 05/23/22 03:58 70 127/58 98 05/23/22 03:08 96 05/22/22 23:19 20 05/22/22 20:15 70 05/22/22 19:59 97.3 F L 70 16 117/68 99 05/22/22 16:00 71 05/22/22 13:00 96 05/22/22 12:49 98 - Physical Examination General: No Apparent Distress HEENT: Positive: PERRL Neck: Positive: neck supple Cardiac: Positive: Reg Rate and Rhythm Lungs: Positive: Decreased Breath Sounds Neuro: Positive: Grossly Intact Abdomen: Positive: Soft Skin: Positive: Clear Extremities: Absent: edema - Labs and Meds Cardiac Enzymes 05/23/22 Range/Units 05:31 AST 31 (5-40) units/L CBC 05/22/22 05/23/22 Range/Units 10:17 05:31 WBC 9.0 8.4 (4.5-11.0) K/mm3 RBC 2.93 L 2.78 L (3.65-5.03) M/mm3 Hgb 9.2 L 8.8 L (10.1-14.3) gm/dl Hct 29.0 L 26.9 L (30.3-42.9) % Plt Count 251 236 (140-440) K/mm3 Lymph # (Auto) 1.1 L (1.2-5.4) K/mm3 [place] # (Auto) 0.8 (0.0-0.8) K/mm3 Eos # (Auto) 0.1 (0.0-0.4) K/mm3 Baso # (Auto) 0.1 (0.0-0.1) K/mm3 Comprehensive Metabolic Panel 05/22/22 05/23/22 Range/Units 10:17 05:31 Sodium 141 133 L D (137-145) mmol/L Potassium 5.3 H D 4.6 (3.6-5.0) mmol/L Chloride 96.6 L 93.5 L (98-107) mmol/L Carbon Dioxide 29 25 (22-30) mmol/L BUN 40 H 46 H (7-17) mg/dL Creatinine 5.8 H 6.2 H (0.6-1.2) mg/dL Glucose 125 H 102 H (65-100) mg/dL Calcium 9.0 8.4 (8.4-10.2) mg/dL AST 31 (5-40) units/L ALT 18 (7-56) units/L Alkaline Phosphatase 105 (35-129) units/L Total Protein 5.6 L (6.3-8.2) g/dL Albumin 3.7 L (3.9-5) g/dL - Imaging and Cardiology EKG: report reviewed (SVT with heart rate of 173 from, probable LVH)
--- NOTE | 2022-05-23 12:01 | Progress Note ---
Assessment and Plan ESRD - Seen & stable on HD HTN - Caution with meds, f/u vitals CP - W/u & Mx per Cardiology A Fib - Resolved RVR, on meds including Eliquis & Amio Subjective Date of service: 05/23/22 Principal diagnosis: Atrial fibrillation Interval history: No new complaint Objective - Vital Signs Vital signs: Vital Signs - 12hr 05/23/22 05/23/22 05/23/22 03:08 03:58 04:00 Temperature 97.5 F L Pulse Rate 70 Blood Pressure 127/58 O2 Sat by Pulse 96 98 Oximetry 05/23/22 05/23/22 07:40 09:23 Temperature Pulse Rate 71 70 Blood Pressure 117/65 O2 Sat by Pulse Oximetry - General Appearance General appearance: other (Awake & responsive) EENT: PERRL Neck: no JVD Respiratory: Present: Other (Good air entry) Cardiology: regular, S1S2 Gastrointestinal: no tenderness Integumentary: warm and dry Neurologic: alert and oriented x3 - Lab 05/23/22 05:31 05/23/22 05:31 Most recent lab results Calcium 8.4 mg/dL (8.4-10.2) 05/23/22 05:31 Phosphorus 5.50 mg/dL (2.5-4.5) H 05/23/22 05:31 Magnesium 1.90 mg/dL (1.7-2.3) 05/23/22 05:31 Medications & Allergies - Medications Allergies/Adverse Reactions: Allergies Iodinated Contrast Media Adverse Reaction (Intermediate, Verified 04/11/22 09:45) Swelling apple Adverse Reaction (Verified 04/11/22 09:45) Hives yellow and green apples. can eat red. shell fish Allergy (Uncoded 04/11/22 09:45) Swelling allergic to seafood except blue crab Home Medications: Home Medications Medication Instructions Recorded Confirmed Last Taken Type Gabapentin 100 mg PO BID 03/02/22 04/06/22 Unknown History Pantoprazole [Protonix TAB] 40 mg PO QDAY 03/02/22 04/06/22 03/02/22 10:00 History methIMAzole [Methimazole] 10 mg PO TID 03/10/22 04/06/22 Unknown History AtorvaSTATin [Lipitor] 20 mg PO QHS #30 tablet 03/12/22 04/06/22 Unknown Rx ISOSORBIDE MONOnitrate [Imdur ER] 60 mg PO QDAY #30 tablet 03/12/22 04/06/22 Unknown Rx Losartan [Cozaar] 50 mg PO QDAY #30 tab 03/12/22 04/06/22 Unknown Rx Metoprolol [Lopressor TAB] 100 mg PO BID #60 tablet 03/12/22 04/06/22 Unknown Rx Sennosides/Docusate [Senokot S] 1 tab PO DAILY #30 tablet 03/12/22 04/06/22 Unknown Rx hydrALAZINE [Apresoline TAB] 50 mg PO Q8HR #120 tablet 03/12/22 04/06/22 Unknown Rx Amiodarone [Cordarone 200 MG TAB] 200 mg PO . DIRECTED #60 tablet 03/23/22 04/06/22 Unknown Rx Apixaban [Eliquis] 2.5 mg PO BID #60 tab 03/23/22 04/06/22 Unknown Rx Aspirin EC [Ecotrin] 325 mg PO QDAY 30 Days #30 tablet 04/02/22 04/06/22 Unknown Rx Nitroglycerin [Nitrostat] 0.4 mg SL .Q5MIN PRN 30 Days #30 04/02/22 04/06/22 Unknown Rx tablet Active Medications: Generic Name Dose Route Start Last Admin Trade Name Freq PRN Reason Stop Dose Admin Acetaminophen 650 mg 05/21/22 19:19 Acetaminophen 325 Mg Tab PO Q4H PRN Pain MILD(1-3)/Fever >100.5/SILVA Amiodarone HCl 200 mg 05/22/22 10:00 05/23/22 09:23 Amiodarone 200 Mg Tab PO 200 mg DAILY [facility] Administration Apixaban 2.5 mg 05/21/22 22:00 05/23/22 09:25 Apixaban 2.5 Mg Tab PO 2.5 mg Q12HR [facility] Administration Protocol Aspirin 81 mg 05/24/22 10:00 Aspirin Ec 81 Mg Tab PO QDAY [facility] Atorvastatin Calcium 20 mg 05/21/22 22:00 05/22/22 23:08 Atorvastatin 20 Mg Tab PO 20 mg QHS [facility] Administration Gabapentin 100 mg 05/21/22 22:00 05/23/22 09:23 Gabapentin 100 Mg Cap PO 100 mg BID [facility] Administration Heparin Sodium (Porcine) 2,000 unit 05/22/22 11:23 Heparin 10,000 Units/10 Ml Vial IV KARLENE PRN hemodialysis Heparin Sodium (Porcine) 5,000 unit 05/22/22 11:23 Heparin 10,000 Unit/1 Ml Vial IV KARLENE PRN hemodialysis Hydralazine HCl 10 mg 05/21/22 16:57 05/21/22 17:02 Hydralazine 20 Mg/1 Ml Inj IV 10 mg Q4HR PRN Administration SBP >/=160; DBP >/=100 Hydralazine HCl 50 mg 05/21/22 22:00 05/23/22 06:00 Hydralazine 25 Mg Tab PO 50 mg Q8HR [facility] Administration Sodium Chloride 100 mls @ 999 mls/hr 05/22/22 11:23 Nacl 0.9% IV KARLENE PRN Hypotension Isosorbide Mononitrate 60 mg 05/22/22 10:00 05/22/22 10:20 Isosorbide Mononitrate Er 60 Mg Tab PO 60 mg QDAY [facility] Administration Losartan Potassium 50 mg 05/22/22 10:00 05/23/22 09:23 Losartan 50 Mg Tab PO Not Given QDAY [facility] Methimazole 10 mg 05/21/22 20:00 05/23/22 09:23 Methimazole 5 Mg Tab PO 10 mg TID [facility] Administration Metoclopramide HCl 10 mg 05/21/22 19:19 Metoclopramide 10 Mg/2 Ml Inj IV Q6H PRN Nausea And Vomiting Metoprolol Tartrate 100 mg 05/21/22 22:00 05/23/22 09:23 Metoprolol Tartrate 100 Mg Tab PO 100 mg BID [facility] Administration Morphine Sulfate 4 mg 05/21/22 17:04 05/21/22 20:40 Morphine 4 Mg/1 Ml Inj IV 4 mg Q4HR PRN Administration Pain, Chest/Cardiac Ondansetron HCl 4 mg 05/21/22 19:19 Ondansetron 4 Mg/2 Ml Inj IV Q8H PRN Nausea And Vomiting Oxycodone/Acetaminophen 1 tab 05/21/22 19:19 05/22/22 23:19 Oxycodone /Acetaminophen 5-325mg Tab PO 1 tab Q6H PRN Administration Pain, Moderate (4-6) Pantoprazole Sodium 40 mg 05/22/22 10:00 05/23/22 09:23 Pantoprazole 40 Mg Tab PO 40 mg QDAY [facility] Administration Senna/Docusate Sodium 1 tab 05/22/22 10:00 05/23/22 09:25 Sennosides/Docusate Sodium 8.6/50 Mg Tab PO 1 tab DAILY [facility] Administration Sodium Chloride 10 ml 05/21/22 22:00 05/23/22 09:24 Sodium Chloride 0.9% 10 Ml Flush Syringe IV 10 ml BID [facility] Administration Sodium Chloride 10 ml 05/21/22 19:19 Sodium Chloride 0.9% 10 Ml Flush Syringe IV PRN PRN LINE FLUSH
--- NOTE | 2022-05-23 12:17 | Discharge Summary ---
Providers - Providers Date of Admission: 05/21/22 19:19 Date of discharge: 05/23/22 Attending physician: CASSY CRUZ 05/21/22 19:19 Consult to Physician [CONS] Routine Comment: Consulting Provider: DEV BROWN Physician Instructions: Reason For Exam: Afib with RVR 05/21/22 19:24 Consult to Physician [CONS] Routine Comment: Consulting Provider: SEBAS DELGADO Physician Instructions: Reason For Exam: ESRD Primary care physician: ROLL CAPPER Hospitalization Condition: Stable Disposition: 01 HOME / SELF CARE / HOMELESS - Discharge Diagnoses (1) Atrial fibrillation with rapid ventricular response Status: Acute Comment: A. fib rate controlled again placed on Eliquis for anticoagulation. Currently in normal sinus. (2) Hypertension Status: Chronic Qualifiers: Hypertension type: primary hypertension Qualified Code(s): I10 - Essential (primary) hypertension (3) End-stage renal disease on hemodialysis Status: Chronic (4) Coronary artery disease Status: Chronic Qualifiers: Coronary Disease-Associated Artery/Lesion type: [place] artery [place] vs. transplanted heart: [place] heart (5) Hyperlipidemia Status: Chronic Qualifiers: Hyperlipidemia type: mixed hyperlipidemia Qualified Code(s): E78.2 - Mixed hyperlipidemia (6) DVT prophylaxis Status: Acute (7) Advance care planning Status: Acute Exam - Constitutional Vitals: Temp Pulse Resp BP Pulse Ox 97.5 F L 70 20 117/65 98 05/23/22 04:00 05/23/22 09:23 05/22/22 23:19 05/23/22 09:23 05/23/22 03:58 Plan Follow up with: MILES DILL MD [Primary Care Provider] - 3-5 Days
--- NOTE | 2022-05-23 12:17 | Progress Note ---
Assessment and Plan - Patient Problems (1) Atrial fibrillation with rapid ventricular response Current Visit: Yes Status: Acute Plan to address problem: Patient initiated on amiodarone drip without titration Patient on Eliquis (2) Hypertension Current Visit: Yes Status: Chronic Qualifiers: Hypertension type: primary hypertension Qualified Code(s): I10 - Essential (primary) hypertension Plan to address problem: Continue antihypertensives and adjust medications as necessary (3) End-stage renal disease on hemodialysis Current Visit: No Status: Chronic Plan to address problem: Continue hemodialysis as per schedule Nephrology consult requested (4) Coronary artery disease Current Visit: No Status: Chronic Qualifiers: Coronary Disease-Associated Artery/Lesion type: [place] artery [place] vs. transplanted heart: [place] heart Plan to address problem: Continue isosorbide mononitrate and aspirin (5) Hyperlipidemia Current Visit: Yes Status: Chronic Qualifiers: Hyperlipidemia type: mixed hyperlipidemia Qualified Code(s): E78.2 - Mixed hyperlipidemia Plan to address problem: Continue statins (6) DVT prophylaxis Current Visit: Yes Status: Acute Plan to address problem: On Eliquis and GI prophylaxis (7) Advance care planning Current Visit: Yes Status: Acute Plan to address problem: Disease education conducted care plan discussed diagnosis discussed prognosis discussed. Patient is full code. Patient acknowledges understanding and agreement with care plan. +30 minutes. Subjective Date of service: 05/22/22 Principal diagnosis: Atrial fibrillation Objective - Constitutional Vitals: Vital Signs - 12hr 05/23/22 05/23/22 05/23/22 03:08 03:58 04:00 Temperature 97.5 F L Pulse Rate 70 Blood Pressure 127/58 O2 Sat by Pulse 96 98 Oximetry 05/23/22 05/23/22 07:40 09:23 Temperature Pulse Rate 71 70 Blood Pressure 117/65 O2 Sat by Pulse Oximetry General appearance: Present: no acute distress, well-nourished - EENT Eyes: PERRL, EOM intact ENT: hearing intact, clear oral mucosa Ears: bilateral: normal - Neck Neck: supple, normal ROM - Respiratory Respiratory effort: normal Respiratory: bilateral: CTA - Breasts Breasts: normal - Cardiovascular Rhythm: regular Heart Sounds: Present: S1 & S2. Absent: gallop, rub Extremities: pulses intact, No edema, normal color, Full ROM - Gastrointestinal General gastrointestinal: Present: soft, non-tender, non-distended, normal bowel sounds - Genitourinary Female genitourinary: normal - Integumentary Integumentary: clear, warm, dry - Musculoskeletal Musculoskeletal: 1, strength equal bilaterally - Neurologic Neurologic: moves all extremities - Psychiatric Psychiatric: memory intact, appropriate mood/affect, intact judgment & insight - Labs CBC & Chem 7: 05/23/22 05:31 05/23/22 05:31 Labs: Abnormal lab results 05/22/22 05/23/22 05/23/22 Range/Units 10:17 05:31 05:31 RBC 2.78 L (3.65-5.03) M/mm3 Hgb 8.8 L (10.1-14.3) gm/dl Hct 26.9 L (30.3-42.9) % RDW 17.9 H (13.2-15.2) % Sodium 133 L D (137-145) mmol/L Chloride 93.5 L (98-107) mmol/L BUN 46 H (7-17) mg/dL Creatinine 6.2 H (0.6-1.2) mg/dL Glucose 102 H (65-100) mg/dL Phosphorus 5.50 H (2.5-4.5) mg/dL Total Protein 5.6 L (6.3-8.2) g/dL Albumin 3.7 L (3.9-5) g/dL Free T4 2.01 H (0.76-1.46) ng/dL HEART Score - HEART Score Age: > 65 Risk factors: > 3 risk factors or hx of atherosclerotic disease Troponin: Troponin T 0.025 ng/mL (0.00-0.029) 05/21/22 22:43 Troponin: 1-3x normal limit - Critical Actions Critical Actions: 4-6 pts:12-16.6% risk of adverse cardiac event. Should be admitted
[2022-05-23 13:35] VITALS: BP 128/82
[2022-05-23] MEDS: oxyCODONE /ACETAMINOPHEN 5-325MG TAB PO PRN (13:49)
[2022-05-24] MEDS ORDERED: ASPIRIN EC 81 MG TAB PO SCH (10:00)
== END 2022-05-23 19:35 | disposition home or self-care (01) | DRG 308 ==
LOC: ED 12:29 → 4A 19:19
PROVIDERS: ADMIT Internal Medicine; ATTEND Internal Medicine
PROC: 5A1D70Z Performance of Urinary Filtration, Intermittent, Less than 6 Hours Per Day (ICD-10-PCS; principal; 2022-05-23)
DX: I48.0 Paroxysmal atrial fibrillation (principal); N18.6 End stage renal disease; I13.2 Hypertensive heart and chronic kidney disease with heart failure and with stage 5 chronic kidney disease, or end stage renal disease; I69.351 Hemiplegia and hemiparesis following cerebral infarction affecting right dominant side; I25.10 Atherosclerotic heart disease of native coronary artery without angina pectoris; I50.9 Heart failure, unspecified; E11.22 Type 2 diabetes mellitus with diabetic chronic kidney disease; Z99.2 Dependence on renal dialysis; F31.9 Bipolar disorder, unspecified; F20.9 Schizophrenia, unspecified; E78.00 Pure hypercholesterolemia, unspecified; J44.9 Chronic obstructive pulmonary disease, unspecified; Z95.0 Presence of cardiac pacemaker; Z82.49 Family history of ischemic heart disease and other diseases of the circulatory system; Z79.82 Long term (current) use of aspirin; Z79.899 Other long term (current) drug therapy; E78.2 Mixed hyperlipidemia; Z91.041 Radiographic dye allergy status; Z91.013 Allergy to seafood; Z91.018 Allergy to other foods; I25.2 Old myocardial infarction
CPT/HCPCS: 36415; 80048; 80053; 80074; 82565; 83735; 84100; 84439; 84443; 84484; 85025; 85027; 85610; 85730; 93005; 93306; 94760; 99406; G0378; J3490; J7060; C8929; J0282; J0360; J2270

== ENCOUNTER 2022-05-23 19:17 | Emergency (ER) | payer MEDICARE ==
--- NOTE | 2022-05-23 20:09 | Emergency Department Report ---
HPI - General Chief Complaint: Dizziness Time Seen by Provider: 05/23/22 19:38 - HPI HPI: 67-year-old -[place] Citizen female, with a history of disease on hemodialysis, paroxysmal atrial fibrillation, and coronary artery disease, presents back into the emergency department after passing out in triage. The patient was just discharged from this hospital about 1 hour ago after being evaluated for atrial fibrillation with RVR, palpitations, chest pain, and she had dialysis done today. However, it appears that she was discharged with her left EJ peripheral line still in place. She came back into the emergency department to get the IV taken out, suddenly became dizzy, and then was witnessed passing out or nearly passing out. The patient was caught before she hit the ground and was placed in a chair. At the time of my examination she is awake, alert, oriented, AAO x3 and has no physical complaints. ED Past Medical Hx - Past Medical History Hx Hypertension: Yes Hx CVA: Yes (right sided weakness) Hx Heart Attack/AMI: Yes (1 stent) Hx Congestive Heart Failure: Yes Hx Diabetes: Yes Hx Renal Disease: Yes (RENAL INSUFFICIENCY- stent left kidney) Hx Sickle Cell Disease: No Hx Kidney Stones: No Hx Psychiatric Treatment: Yes (BIPOLAR/SCHIZOPHRENIA) Hx Asthma: No Hx COPD: Yes Hx HIV: No Additional medical history: HIGH CHOLESTEROL - Surgical History Hx Coronary Stent: Yes Hx Pacemaker: Yes Additional Surgical History: stent placement x 2 in 2014, knee surgery 11/2017 - Social History Smoking Status: Current Every Day Smoker - Medications Home Medications: Home Medications Medication Instructions Recorded Confirmed Last Taken Type Gabapentin 100 mg PO BID 03/02/22 04/06/22 Unknown History Pantoprazole [Protonix TAB] 40 mg PO QDAY 03/02/22 04/06/22 03/02/22 10:00 History methIMAzole [Methimazole] 10 mg PO TID 03/10/22 04/06/22 Unknown History AtorvaSTATin [Lipitor] 20 mg PO QHS #30 tablet 03/12/22 04/06/22 Unknown Rx Sennosides/Docusate [Senokot S] 1 tab PO DAILY #30 tablet 03/12/22 04/06/22 Unknown Rx Amiodarone [Cordarone 200 MG TAB] 200 mg PO . DIRECTED #60 tablet 03/23/22 04/06/22 Unknown Rx Apixaban [Eliquis] 2.5 mg PO BID #60 tab 03/23/22 04/06/22 Unknown Rx Aspirin EC [Ecotrin] 325 mg PO QDAY 30 Days #30 tablet 04/02/22 04/06/22 Unknown Rx Nitroglycerin [Nitrostat] 0.4 mg SL .Q5MIN PRN 30 Days #30 04/02/22 04/06/22 Unknown Rx tablet Apixaban [Eliquis] 2.5 mg PO Q12HR tablet 05/23/22 Unknown Rx Aspirin EC [Halfprin EC] 81 mg PO QDAY tablet 05/23/22 Unknown Rx AtorvaSTATin [Lipitor] 20 mg PO QHS tablet 05/23/22 Unknown Rx Gabapentin 100 mg PO BID capsule 05/23/22 Unknown Rx ISOSORBIDE MONOnitrate [Imdur ER] 60 mg PO QDAY tablet 05/23/22 Unknown Rx Losartan [Cozaar] 50 mg PO QDAY tablet 05/23/22 Unknown Rx Metoprolol [Lopressor TAB] 100 mg PO BID #60 tablet 05/23/22 Unknown Rx hydrALAZINE [Apresoline TAB] 50 mg PO Q8HR tablet 05/23/22 Unknown Rx oxyCODONE /ACETAMINOPHEN [Percocet 1 tab PO Q6H PRN #14 tablet 05/23/22 Unknown Rx 5/325 mg] ED Review of Systems ROS: Stated complaint: WEAKNESS Other details as noted in HPI Comment: All other systems reviewed and negative Constitutional: denies: chills, fever Eyes: denies: eye pain, vision change ENT: denies: ear pain, throat pain Respiratory: denies: cough, shortness of breath Cardiovascular: syncope. denies: chest pain Gastrointestinal: denies: abdominal pain, vomiting Genitourinary: denies: dysuria, discharge Musculoskeletal: denies: back pain, arthralgia Skin: denies: rash, lesions Neurological: denies: headache, weakness Physical Exam - Physical Exam Vital Signs: Vital Signs 05/23/22 05/23/22 05/23/22 19:17 19:26 19:30 Temperature 98 F Pulse Rate 71 71 Respiratory 16 14 Rate Blood Pressure 112/75 Blood Pressure 87/55 [Left] O2 Sat by Pulse 92 92 94 Oximetry Physical Exam: GENERAL: The patient is well-developed well-nourished. HENT: Normocephalic. Atraumatic. Patient has moist mucous membranes. EYES: Extraocular motions are intact. NECK: Supple. Trachea is midline. CHEST/LUNGS: Clear to auscultation. There is no respiratory distress noted. HEART/CARDIOVASCULAR: Regular. There is no tachycardia. There is no murmur. ABDOMEN: Abdomen is soft, nontender. Patient has normal bowel sounds. There is no abdominal distention. SKIN: Skin is warm and dry. NEURO: The patient is awake, alert, and oriented. The patient is cooperative. The patient has no focal neurologic deficits. Normal speech. MUSCULOSKELETAL: There is no tenderness or deformity. There is no limitation range of motion. ED Course Vital Signs 05/23/22 05/23/22 05/23/22 19:17 19:26 19:30 Temperature 98 F Pulse Rate 71 71 Respiratory 16 14 Rate Blood Pressure 112/75 Blood Pressure 87/55 [Left] O2 Sat by Pulse 92 92 94 Oximetry ED Medical Decision Making - Lab Data Result diagrams: 05/23/22 20:18 05/23/22 20:18 Lab Results 05/23/22 05/23/22 Range/Units 20:18 20:18 WBC 7.4 (4.5-11.0) K/mm3 RBC 2.70 L (3.65-5.03) M/mm3 Hgb 8.6 L (10.1-14.3) gm/dl Hct 26.2 L (30.3-42.9) % MCV 97 (79-97) fl MCH 32 (28-32) pg MCHC 33 (30-34) % RDW 18.2 H (13.2-15.2) % Plt Count 244 (140-440) K/mm3 Sodium 140 D (137-145) mmol/L Potassium 4.2 (3.6-5.0) mmol/L Chloride 99.7 (98-107) mmol/L Carbon Dioxide 26 (22-30) mmol/L Anion Gap 19 mmol/L BUN 23 H (7-17) mg/dL Creatinine 4.1 H (0.6-1.2) mg/dL Estimated GFR 13 ml/min BUN/Creatinine Ratio 6 % Glucose 119 H (65-100) mg/dL Calcium 8.6 (8.4-10.2) mg/dL Magnesium 1.60 L (1.7-2.3) mg/dL - EKG Data -: EKG Interpreted by Me Rate: normal - EKG Data When compared to previous EKG there are: changes noted (Previous EKG showed atrial fibrillation with RVR) Interpretation: other (Atrial fibrillation with a rate of 83 bpm, normal axis, prolonged QTC, LVH, no ST elevation MO.) - Medical Decision Making This patient was just discharged from this hospital this evening after being evaluated here for chest pain and getting dialysis. She was on the way out to her car when she realized that she still had her EJ peripheral line still in place. She came into the emergency department to get this removed, felt dizzy, and had a syncopal versus near syncopal episode in triage. Since my initial examination the patient is awake, alert, oriented, AAO x3. She does not have any acute focal, motor or sensory deficits. EKG does not show any morphology consistent with ST elevation myocardial infarction. It does show atrial fibrillation but the patient has a history of paroxysmal atrial fibrillation and is anticoagulated. Patient's labs have been mostly unremarkable including CBC, metabolic panel except for the renal insufficiency consistent with her end- stage renal disease on hemodialysis. She has very mild hypomagnesemia, but this can be corrected during her next dialysis session. Vital signs reassuring throughout her ED course including being afebrile. She was reevaluated multiple times over multiple hours and says she is feeling greatly improved and appears safe for discharge home. She will return to the emergency department with any worsening of her symptoms or with any acute distress. Critical Care Time: No Critical care attestation.: If time is entered above; I have spent that time in minutes in the direct care of this critically ill patient, excluding procedure time. ED Disposition Clinical Impression: Dizziness, ESRD on hemodialysis Atrial fibrillation Qualifiers: Atrial fibrillation type: paroxysmal Qualified Code(s): I48.0 - Paroxysmal atrial fibrillation Syncope Qualifiers: Syncope type: unspecified Qualified Code(s): R55 - Syncope and collapse Disposition: 01 HOME / SELF CARE / HOMELESS Is pt being admited?: No Condition: Stable Instructions: Dizziness, Atrial Fibrillation, Syncope, Syncope (ED) Additional Instructions: Please follow-up with your primary care physician in the next few days. Continue with your normal dialysis regimen. Return to the emergency department with any worsening of your symptoms or with any acute distress. Referrals: PCP, Your [Other] - 3-5 Days Time of Disposition: 21:38
[2022-05-23 20:45] LABS: Hematocrit 26.2 % (30.3-42.9); Hemoglobin 8.6 gm/dl (10.1-14.3); Mean Corpuscular HGB Conc 33 % (30-34); Mean Corpuscular Volume 97 fl (79-97); Platelet Count 244 K/mm3 (140-440); Red Cell Distribution Width 18.2 % (13.2-15.2)
[2022-05-23 20:58] LABS: Calcium 8.6 mg/dL (8.4-10.2)
[2022-05-23 22:50] LABS: Total Cells Counted 100
[2022-05-23 22:51] LABS: RBC Morphology Normal
[2022-05-23 22:54] VITALS: BP 89/65
--- NOTE | 2022-05-26 15:09 | Electrocardiograph Report ---
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
== END 2022-05-23 22:57 | disposition home or self-care (01) ==
LOC: NM 19:17
DX: R53.1 Weakness (principal)
CPT/HCPCS: 36415; 80048; 83735; 85007; 85025; 93005

== ENCOUNTER 2022-06-02 10:19 | Observation (INO) | payer MEDICARE ==
[2022-06-02] MEDS ORDERED: PROPRANOLOL 1 MG/1 ML INJ IV ONE (11:31)
[2022-06-02] MEDS ORDERED: ONDANSETRON 4 MG/2 ML INJ IV ONE (11:31)
[2022-06-02] MEDS ORDERED: fentaNYL 100 MCG/2 ML INJ IV ONE ×2 (11:31→12:41)
--- NOTE | 2022-06-02 11:36 | XRay Report ---
CHEST 1 VIEW 06/02/2022 11:10 AM INDICATION / CLINICAL INFORMATION: SONIA. COMPARISON: 04/25/22. FINDINGS: SUPPORT DEVICES: The position of the dual chamber left subclavian transvenous pacemaker has not lerner ed. HEART / MEDIASTINUM: There is mild cardiomegaly with prominence of the central pulmonary vessels. LUNGS / PLEURA: Interstitial lung markings are mildly increased in the perihilar regions/central lung zones, right greater than left. No significant pleural effusion. No pneumothorax. ADDITIONAL FINDINGS: No significant additional findings. IMPRESSION: Mild congestive heart failure/interstitial edema, right greater than left. Signer Name: Franklin Joseph MD Signed: 06/02/2022 11:31 AM Workstation Name: [id number]
--- NOTE | 2022-06-02 11:46 | Emergency Department Report ---
HPI - General Chief Complaint: Arrhythmia/Palpitations Time Seen by Provider: 06/02/22 10:45 - HPI HPI: Room 17 Patient is a 67-year-old female present with chief complaint of chest pain. Patient states her symptoms began last night with across the substernal chest pain associated with shortness of breath, diaphoresis and nausea without vomiting. Patient currently gives her chest pain score of 10/10. Patient was recently admitted for A. fib with RVR. Patient reportedly has history of hyperthyroidism but states she does not recall being on methimazole. ED Past Medical Hx - Past Medical History Hx Hypertension: Yes Hx CVA: Yes (right sided weakness) Hx Heart Attack/AMI: Yes (1 stent) Hx Congestive Heart Failure: Yes Hx Diabetes: Yes Hx Renal Disease: Yes (RENAL INSUFFICIENCY- stent left kidney) Hx Psychiatric Treatment: Yes (BIPOLAR/SCHIZOPHRENIA) Hx COPD: Yes Additional medical history: HIGH CHOLESTEROL - Surgical History Hx Coronary Stent: Yes Hx Pacemaker: Yes Additional Surgical History: stent placement x 2 in 2014, knee surgery 11/2017 - Family History Family history: no significant - Social History Smoking Status: Former Smoker (Stopped smoking yesterday) Substance Use Type: None (Denies illicit drug use) - Medications Home Medications: Home Medications Medication Instructions Recorded Confirmed Last Taken Type Gabapentin 100 mg PO BID 03/02/22 04/06/22 Unknown History Pantoprazole [Protonix TAB] 40 mg PO QDAY 03/02/22 04/06/22 03/02/22 10:00 History methIMAzole [Methimazole] 10 mg PO TID 03/10/22 04/06/22 Unknown History AtorvaSTATin [Lipitor] 20 mg PO QHS #30 tablet 03/12/22 04/06/22 Unknown Rx Sennosides/Docusate [Senokot S] 1 tab PO DAILY #30 tablet 03/12/22 04/06/22 Unknown Rx Amiodarone [Cordarone 200 MG TAB] 200 mg PO . DIRECTED #60 tablet 03/23/22 04/06/22 Unknown Rx Apixaban [Eliquis] 2.5 mg PO BID #60 tab 03/23/22 04/06/22 Unknown Rx Aspirin EC [Ecotrin] 325 mg PO QDAY 30 Days #30 tablet 04/02/22 04/06/22 Unknown Rx Nitroglycerin [Nitrostat] 0.4 mg SL .Q5MIN PRN 30 Days #30 04/02/22 04/06/22 Unknown Rx tablet Apixaban [Eliquis] 2.5 mg PO Q12HR tablet 05/23/22 Unknown Rx Aspirin EC [Halfprin EC] 81 mg PO QDAY tablet 05/23/22 Unknown Rx AtorvaSTATin [Lipitor] 20 mg PO QHS tablet 05/23/22 Unknown Rx Gabapentin 100 mg PO BID capsule 05/23/22 Unknown Rx ISOSORBIDE MONOnitrate [Imdur ER] 60 mg PO QDAY tablet 05/23/22 Unknown Rx Losartan [Cozaar] 50 mg PO QDAY tablet 05/23/22 Unknown Rx Metoprolol [Lopressor TAB] 100 mg PO BID #60 tablet 05/23/22 Unknown Rx hydrALAZINE [Apresoline TAB] 50 mg PO Q8HR tablet 05/23/22 Unknown Rx oxyCODONE /ACETAMINOPHEN [Percocet 1 tab PO Q6H PRN #14 tablet 05/23/22 Unknown Rx 5/325 mg] ED Review of Systems ROS: Stated complaint: CP/SOB Other details as noted in HPI Constitutional: diaphoresis Eyes: denies: eye pain ENT: denies: throat pain Respiratory: shortness of breath Cardiovascular: chest pain Endocrine: no symptoms reported Gastrointestinal: nausea. denies: vomiting Musculoskeletal: denies: back pain Neurological: denies: headache Physical Exam - Physical Exam Vital Signs: Vital Signs 06/02/22 11:41 Pulse Rate 173 H Blood Pressure 191/110 Physical Exam: GENERAL: The patient is well-developed well-nourished female lying on stretcher appearing to be in moderate discomfort. [] HEENT: Normocephalic. Atraumatic. Extraocular motions are intact. Patient has moist mucous membranes. NECK: Supple. Trachea midline CHEST/LUNGS: Clear to auscultation. There is no respiratory distress noted. HEART/CARDIOVASCULAR: Regular. There is tachycardia. There is no gallop rub or murmur. ABDOMEN: Abdomen is soft, nontender. Patient has normal bowel sounds. There is no abdominal distention. SKIN: There is no rash. There is no edema. There is no diaphoresis. NEURO: The patient is awake, alert, and oriented. The patient is cooperative. The patient has no focal neurologic deficits. The patient has normal speech. GCS 15 MUSCULOSKELETAL: There is no evidence of acute injury. ED Course Vital Signs 06/02/22 11:41 Pulse Rate 173 H Blood Pressure 191/110 - Reevaluation(s) Reevaluation #1: 06/02/22 12:42 Patient's heart rate corrected to the 70s, however she still complains of substernal chest pain. We will repeat EKG - Consultations Consultation #1: 06/02/22 14:46 Cardiology paged 06/02/22 16:01 No return call from cardiology yet. I attempted to contact maintenance job titles Dr. Steele on his cell phone but there was no answer- voicemail left ED Medical Decision Making - Lab Data Result diagrams: 06/02/22 12:22 06/02/22 12:22 - EKG Data -: EKG Interpreted by Me EKG shows normal: sinus rhythm Rate: tachycardia (150 bpm) - EKG Data When compared to previous EKG there are: no significant change Interpretation: nonspecific ST-T wave north - Radiology Data Radiology results: report reviewed (Chest x-ray), image reviewed (Chest x-ray) interpreted by me: Chest [id number], no definite focal infiltrates, no pneumothorax [facility] [address] [place] [address] XRay Report Signed Patient: TEETEE MARTINEZ MR#: [id number] : 1955 Acct:[id number] Age/Sex: 67 / F ADM Date: 06/02/22 Loc: ED Attending Dr: Ordering Physician: MARLA BARRY MD Date of Service: 06/02/22 Procedure(s): XR chest 1V ap Accession Number(s): [id number] cc: MARLA BARRY MD Fluoro Time In Minutes: CHEST 1 VIEW 06/02/2022 11:10 AM INDICATION / CLINICAL INFORMATION: SONIA. COMPARISON: 04/25/22. FINDINGS: SUPPORT DEVICES: The position of the dual chamber left subclavian transvenous pacemaker has not changed. HEART / MEDIASTINUM: There is mild cardiomegaly with prominence of the central pulmonary vessels. LUNGS / PLEURA: Interstitial lung markings are mildly increased in the perih ilar regions/central lung zones, right greater than left. No significant pleural effusion. No pneum othorax. ADDITIONAL FINDINGS: No significant additional findings. IMPRESSION: Mild congestive heart failure/interstitial edema, right greater than left. Signer Name: Franklin Joseph MD Signed: 06/02/2022 11:31 AM Workstation Name: [id number] Transcribed By: RT Dictated By: Franklin Joseph MD Electronically Authenticated By: Franklin Joseph MD Signed Date/Time: 06/02/22 1131 DD/ 1130 TD/TT: Print Cancel - Differential Diagnosis A. fib with RVR, thyrotoxicosis, symptomatic anemia, ACS, pericarditis, EL Critical care attestation.: If time is entered above; I have spent that time in minutes in the direct care of this critically ill patient, excluding procedure time. ED Disposition Clinical Impression: Chest pain, Atrial fibrillation with rapid ventricular response Disposition: ADMITTED INPATIENT Is pt being admited?: Yes Does the pt Need Aspirin: Yes Condition: Fair Instructions: Nonspecific Chest Pain, Adult Referrals: PRIMARY CARE, [Primary Care Provider] - 3-5 Days Time of Disposition: 16:08 (Care transferred to hospitalist (Dr. Torre)) Heart Score - HEART Score History: Moderately suspicious EKG: Non-specific Age: > 65 Risk factors: > 3 risk factors or hx of atherosclerotic disease Troponin: < normal limit HEART Score: 6 - EKG Read Time Time EKG Completed: 11:30 EKG Read Time: 11:34
[2022-06-02] MEDS ORDERED: dilTIAZem 25 MG/5 ML INJ IV ONE (11:58)
[2022-06-02 13:04] LABS: Basophils # (Auto) 0.1 K/mm3 (0.0-0.1); Eosinophils % (Auto) 0.5 % (0.0-4.3); Hematocrit 35.8 % (30.3-42.9); Hemoglobin 11.7 gm/dl (10.1-14.3); Lymphocytes # (Auto) 1.1 K/mm3 (1.2-5.4); Lymphocytes % (Auto) 12.4 % (13.4-35.0); Mean Corpuscular HGB Conc 33 % (30-34); Mean Corpuscular Volume 100 fl (79-97); Monocytes # (Auto) 0.8 K/mm3 (0.0-0.8); Monocytes % (Auto) 9.1 % (0.0-7.3); Platelet Count 192 K/mm3 (140-440); Red Blood Count 3.59 M/mm3 (3.65-5.03)
[2022-06-02 13:12] LABS: Red Cell Distribution Width 20.2 % (13.2-15.2)
[2022-06-02 13:15] LABS: INR 1.22 (0.87-1.13); Partial Thromboplastin Time 36.9 Sec. (24.2-36.6)
[2022-06-02 13:30] LABS: Free T4 (Free Thyroxine) 2.24 ng/dL (0.76-1.46)
[2022-06-02 13:36] LABS: Albumin 4.1 g/dL (3.9-5)
--- NOTE | 2022-06-02 16:04 | History and Physical Report ---
History of Present Illness Chief complaint: My chest hurts and I have been feeling weak and tired History of present illness: 67 YO Female with ESRD on HD(T,R,Sa), HTN, CVA, [place], CHF, Nicotine Dependence, Atrial Fib on Therapeutic Anticoagulation, DM, COPD, HLD, Bipolar Disorder, CAD S/P Stent Placement presents to ED for evaluation. Patient reports " my chest hurts and I have been feeling weak and tired". Patient states that she experienced generalized weakness, decreased exercise tolerance, dyspnea on exertion over the past week with persistent symptoms over the same timeframe. Patient also states that she experienced a sudden onset of chest pain last night which awaken her from sleep. Patient states that pain is 10/10, constant, substernal, nonradiating, associated with shortness of breath, associated with diaphoresis, worsened with exertion, relieved with rest. Patient acknowledges noncompliance with renal diet, and 5 pound weight gain over the past 3 days. EMS notified and upon arrival the patient was found to be in distress and subsequent transported to [facility] for further care and evaluation of the aforementioned symptoms. Patient was seen and evaluated in the emergency department. All lab and imaging studies reviewed. Patient found to have a blood pressure of 191/110 mmHg which is consistent with hypertensive emergency as well as atrial fibrillation with rapid ventricular response due to heart rate in the 180s, thyrotoxicosis, and end-stage renal disease, as well as clinical symptoms consistent with diastolic CHF. Patient admitted to telemetry floor due to increased risk of decompensation and for medical stabilization. Nephrology team consulted in ED. Cardiology team consulted in ED. Pt denies fever, chills, productive cough, unilateral leg swelling, calf pain, NVD, syncope, dizziness, or recent ill contacts, syncope, known exposure to COVID-19. Prior admission on 05/21/2022 reviewed. All medication listed at time of admission has been reconciled. Advanced care planning conducted in ED. Past History Past Medical History: acute [place], atrial fib, heart failure, hypertension, stroke, other (See HPI) Past Surgical History: total knee replacement, Other (Pacemaker placement) Social history: . denies: smoking, alcohol abuse, prescription drug abuse Family history: diabetes, hypertension Medications and Allergies Allergies Allergy/AdvReac Type Severity Reaction Status Date / Time Iodinated Contrast Media AdvReac Intermediate Swelling Verified 06/02/22 10:22 apple AdvReac Hives Verified 06/02/22 10:22 shell fish Allergy Swelling Uncoded 04/11/22 09:45 Home Medications Medication Instructions Recorded Confirmed Last Taken Type Gabapentin 100 mg PO BID 03/02/22 04/06/22 Unknown History Pantoprazole [Protonix TAB] 40 mg PO QDAY 03/02/22 04/06/22 03/02/22 10:00 History methIMAzole [Methimazole] 10 mg PO TID 03/10/22 04/06/22 Unknown History AtorvaSTATin [Lipitor] 20 mg PO QHS #30 tablet 03/12/22 04/06/22 Unknown Rx Sennosides/Docusate [Senokot S] 1 tab PO DAILY #30 tablet 03/12/22 04/06/22 Unknown Rx Amiodarone [Cordarone 200 MG TAB] 200 mg PO . DIRECTED #60 tablet 03/23/22 04/06/22 Unknown Rx Apixaban [Eliquis] 2.5 mg PO BID #60 tab 03/23/22 04/06/22 Unknown Rx Aspirin EC [Ecotrin] 325 mg PO QDAY 30 Days #30 tablet 04/02/22 04/06/22 Unknown Rx Nitroglycerin [Nitrostat] 0.4 mg SL .Q5MIN PRN 30 Days #30 04/02/22 04/06/22 Unknown Rx tablet Apixaban [Eliquis] 2.5 mg PO Q12HR tablet 05/23/22 Unknown Rx Aspirin EC [Halfprin EC] 81 mg PO QDAY tablet 05/23/22 Unknown Rx AtorvaSTATin [Lipitor] 20 mg PO QHS tablet 05/23/22 Unknown Rx Gabapentin 100 mg PO BID capsule 05/23/22 Unknown Rx ISOSORBIDE MONOnitrate [Imdur ER] 60 mg PO QDAY tablet 05/23/22 Unknown Rx Losartan [Cozaar] 50 mg PO QDAY tablet 05/23/22 Unknown Rx Metoprolol [Lopressor TAB] 100 mg PO BID #60 tablet 05/23/22 Unknown Rx hydrALAZINE [Apresoline TAB] 50 mg PO Q8HR tablet 05/23/22 Unknown Rx oxyCODONE /ACETAMINOPHEN [Percocet 1 tab PO Q6H PRN #14 tablet 05/23/22 Unknown Rx 5/325 mg] Review of Systems Constitutional: weight gain, no weight loss, no fever, no chills Ears, nose, mouth and throat: no ear pain, no ear discharge, no decreased hearing, no nose pain, no nasal discharge Breasts: no change in shape, no swelling, no mass Cardiovascular: chest pain, shortness of breath, dyspnea on exertion, high blood pressure, decreased exercise tolerance Gastrointestinal: no abdominal pain, no nausea, no vomiting, no diarrhea, no constipation Genitourinary Female: no pelvic pain, no flank pain, no dysuria, no urinary frequency, no urgency Rectal: no pain, no incontinence Musculoskeletal: no neck pain, no shooting arm pain, no low back pain, no shooting leg pain, no leg numbness/tingling Integumentary: no rash, no pruritis, no redness, no wounds Neurological: no transient paralysis, no numbness, no seizures, no syncope, no tremors Psychiatric: no anxiety, no memory loss, no sleep disturbances, no insomnia, no change in appetite Endocrine: no cold intolerance, no polyphagia, no excessive thirst, no polyuria, no nocturia, no excessive sweating Hematologic/Lymphatic: no easy bruising, no easy bleeding, no lymphedema Allergic/Immunologic: no allergic rhinitis, no wheezing, no anaphylaxis Exam - Constitutional Vitals: Temp Pulse Resp BP Pulse Ox 84 21 177/79 94 06/02/22 15:45 06/02/22 15:45 06/02/22 15:45 06/02/22 15:45 General appearance: Present: mild distress - EENT Eyes: Present: PERRL ENT: hearing intact, clear oral mucosa - Neck Neck: Present: supple, normal ROM - Respiratory Respiratory effort: normal Respiratory: bilateral: diminished - Cardiovascular Rhythm: other (Tachycardia) Heart Sounds: Present: S1 & S2. Absent: rub, click - Extremities Extremities: pulses symmetrical Extremity abnormal: edema Peripheral Pulses: within normal limits - Abdominal General gastrointestinal: Present: soft, non-tender, non-distended, normal bowel sounds Female genitourinary: Present: normal - Integumentary Integumentary: Present: clear, warm, dry - Musculoskeletal Musculoskeletal: gait normal, strength equal bilaterally - Psychiatric Psychiatric: appropriate mood/affect, intact judgment & insight - Neurologic Neurologic: CNII-XII intact, moves all extremities HEART Score - HEART Score Troponin: Troponin T 0.025 ng/mL (0.00-0.029) 06/02/22 12:22 Results - Labs CBC & Chem 7: 06/02/22 12:22 06/02/22 12:22 Labs: Abnormal lab results 06/02/22 06/02/22 06/02/22 Range/Units 12:22 12:22 12:22 RBC 3.59 L (3.65-5.03) M/mm3 MCV 100 H (79-97) fl MCH 33 H (28-32) pg RDW 20.2 H (13.2-15.2) % Lymph % (Auto) 12.4 L (13.4-35.0) % Bond % (Auto) 9.1 H (0.0-7.3) % Lymph # (Auto) 1.1 L (1.2-5.4) K/mm3 Seg Neutrophils % 77.0 H (40.0-70.0) % PT 16.8 H (12.2-14.9) Sec. INR 1.22 H (0.87-1.13) APTT 36.9 H (24.2-36.6) Sec. BUN 24 H (7-17) mg/dL Creatinine 3.5 H (0.6-1.2) mg/dL Glucose 111 H (65-100) mg/dL Total Bilirubin 1.40 H (0.1-1.2) mg/dL Free T4 (0.76-1.46) ng/dL 06/02/22 Range/Units 12:22 RBC (3.65-5.03) M/mm3 MCV (79-97) fl MCH (28-32) pg RDW (13.2-15.2) % Lymph % (Auto) (13.4-35.0) % Bond % (Auto) (0.0-7.3) % Lymph # (Auto) (1.2-5.4) K/mm3 Seg Neutrophils % (40.0-70.0) % PT (12.2-14.9) Sec. INR (0.87-1.13) APTT (24.2-36.6) Sec. BUN (7-17) mg/dL Creatinine (0.6-1.2) mg/dL Glucose (65-100) mg/dL Total Bilirubin (0.1-1.2) mg/dL Free T4 2.24 H (0.76-1.46) ng/dL Assessment and Plan - Patient Problems (1) Angina at rest Current Visit: Yes Status: Acute Plan to address problem: ACS protocol: Serial cardiac enzymes, EKG, telemetry monitoring, cardiology team consulted. Further care and evaluation as per cardiology team. Echocardiogram from 05/23/2022 reviewed. (2) Diastolic CHF Current Visit: Yes Status: Acute Qualifiers: Heart failure chronicity: acute on chronic Qualified Code(s): I50.33 - Acute on chronic diastolic (congestive) heart failure Plan to address problem: Strict I's/O, Q shift, daily weight, afterload reduction, blood pressure control, echocardiogram from 05/23/2022 reviewed. (3) End stage renal disease Current Visit: Yes Status: Acute Plan to address problem: Nephrology team consulted in ED for dialysis. (4) Thyrotoxicosis Current Visit: Yes Status: Acute Qualifiers: Thyrotoxicosis type: unspecified thyrotoxicosis type Plan to address problem: Supportive care, resume prehospital methimazole therapy, monitor vital signs per routine, supportive care. (5) Hypertensive emergency Current Visit: Yes Status: Acute Plan to address problem: Monitor blood pressure every shift, IV antihypertensive therapy, monitor blood pressure q. nursing care protocol, supportive care. (6) Atrial fibrillation with rapid ventricular response Current Visit: Yes Status: Acute Plan to address problem: Rate control, resume prehospital amiodarone, echocardiogram reviewed. cardiology team consulted. Therapeutic anticoagulation (7) Hyperlipidemia Current Visit: No Status: Acute Qualifiers: Hyperlipidemia type: mixed hyperlipidemia Qualified Code(s): E78.2 - Mixed hyperlipidemia Plan to address problem: Statin therapy, low-cholesterol diet, supportive care. (8) Bipolar 1 disorder Current Visit: No Status: Chronic Plan to address problem: Continue medical management. No acute exacerbation at this time. (9) Diabetes mellitus Current Visit: No Status: Chronic Plan to address problem: Consistent carbohydrate diet, Accu-Chek, insulin protocol, hypoglycemia protocol, supportive care. (10) Nicotine dependence Current Visit: Yes Status: Acute Qualifiers: Nicotine product type: cigarettes Substance use status: in withdrawal Qualified Code(s): F17.213 - Nicotine dependence, cigarettes, with withdrawal Plan to address problem: Smoke cessation counseling, supportive care, behavior change counseled, +15 minutes. (11) COPD (chronic obstructive pulmonary disease) Current Visit: Yes Status: Acute Plan to address problem: Supplemental oxygen, nebulized therapy, no acute exacerbation at this time. Continue medical management. (12) DVT prophylaxis Current Visit: No Status: Acute Plan to address problem: SCD to bilateral lower extremities while in bed, continue therapeutic anticoagulation. (13) Advance care planning Current Visit: Yes Status: Acute Plan to address problem: Disease education done, care plan discussed, diagnoses discussed, prognosis discussed, patient is full code. Patient acknowledged understanding and agreed with care plan, +30 minutes. (14) Preventative health care Current Visit: Yes Status: Acute Plan to address problem: Patient counseled regarding medication compliance, outpatient follow-up with re nal diet, outpatient follow-up with primary care physician for all age and risk factor appropriate screening test. +30 minutes.
[2022-06-02] MEDS ORDERED: NITROGLYCERIN 2% OINT 1 GM TP ONE (16:05)
[2022-06-02] MEDS ORDERED: ASPIRIN 325 MG TAB PO ONE (16:09)
[2022-06-02] MEDS ORDERED: NITROGLYCERIN 0.4 MG TAB SUBL SL PRN (16:21)
[2022-06-02] MEDS ORDERED: ACETAMINOPHEN 325 MG TAB PO PRN (16:22)
[2022-06-02] MEDS ORDERED: oxyCODONE /ACETAMINOPHEN 5-325MG TAB PO PRN (16:22)
[2022-06-02] MEDS ORDERED: ONDANSETRON 4 MG/2 ML INJ IV PRN (16:22)
[2022-06-02] MEDS ORDERED: ALBUTEROL 2.5 MG/3 ML NEBU IH PRN (16:22)
[2022-06-02] MEDS ORDERED: MORPHINE 4 MG/1 ML INJ IV PRN (16:22)
[2022-06-02] MEDS ORDERED: AMIODARONE IV ONE (19:43)
[2022-06-02] MEDS ORDERED: [UNRECOGNIZED DRUG - OTHER] IV ONE (19:43)
[2022-06-02] MEDS: AMIODARONE 200 MG TAB PO SCH (19:43)
[2022-06-02] MEDS ORDERED: AMIODARONE 900 MG in DEXTROSE 5% IN WATER 482 ML IV SCH (20:00)
[2022-06-02 21:38] LABS: Chol/HDL Ratio 2.2 %
[2022-06-02] MEDS ORDERED: NON-FORMULARY EACH (Apixaban 2.5 MG Tablet) PO SCH (22:00)
[2022-06-02] MEDS: GABAPENTIN 100 MG CAP PO SCH (23:13)
[2022-06-02] MEDS: APIXABAN 2.5 MG TAB PO SCH (23:13)
[2022-06-02] MEDS: METOPROLOL TARTRATE 100 MG TAB PO SCH (23:13)
[2022-06-02] MEDS: hydrALAZINE 25 MG TAB PO SCH (23:14)
[2022-06-02] MEDS: methIMAzole 5 MG TAB PO SCH (23:22)
[2022-06-03 06:05] LABS: Calcium 9.3 mg/dL (8.4-10.2)
[2022-06-03] MEDS: hydrALAZINE 25 MG TAB PO SCH ×2 (06:18→13:12)
[2022-06-03] MEDS: methIMAzole 5 MG TAB PO SCH ×2 (09:38→13:12)
[2022-06-03] MEDS: AMIODARONE 200 MG TAB PO SCH (09:39)
[2022-06-03] MEDS: GABAPENTIN 100 MG CAP PO SCH (09:39)
[2022-06-03] MEDS: APIXABAN 2.5 MG TAB PO SCH (09:39)
[2022-06-03] MEDS: METOPROLOL TARTRATE 100 MG TAB PO SCH (09:42)
[2022-06-03] MEDS ORDERED: ASPIRIN EC 325 MG TAB PO SCH (10:00)
[2022-06-03] MEDS ORDERED: LOSARTAN 50 MG TAB PO SCH (10:00)
[2022-06-03] MEDS ORDERED: PANTOPRAZOLE 40 MG TAB PO SCH (10:00)
[2022-06-03] MEDS ORDERED: SENNOSIDES/DOCUSATE SODIUM 8.6/50 MG TAB PO SCH (10:00)
--- NOTE | 2022-06-03 10:03 | Electrocardiograph Report ---
[facility] Test Date: 2022-06-02 Test Time: 11:30:32 Pat Name: TEETEE MARTINEZ Department: Room: A460 Gender: F Rn First Assist: KELVIN : 1955 Requested By: MARLA BARRY Order Number: [id number] Reading MD: Aki Reddy Measurements Intervals [place] Rate: 150 P: 77 [place]: 112 QRS: -41 QRSD: 75 T: 71 QT: 309 QTc: 486 Interpretive Statements afib w rvr Ventricular tachycardia, unsustained Inferior infarct, old Anterior infarct, old Electronically Signed On 06-03-2022 10:03:11 EDT by Aki Reddy
--- NOTE | 2022-06-03 10:03 | Electrocardiograph Report ---
[facility] Test Date: 2022-06-02 Test Time: 10:46:20 Pat Name: TEETEE MARTINEZ Department: Room: A460 Gender: F Supervisor Coffee: KELVIN : 1955 Requested By: MARLA BARRY Order Number: [id number] Reading MD: Aki Reddy Measurements Intervals [place] Rate: 148 P: 71 [place]: 126 QRS: -42 QRSD: 82 T: 71 QT: 313 QTc: 472 Interpretive Statements afib w rvr Multiform ventricular premature complexes Inferior infarct, old Probable anterior infarct, age indeterminate Electronically Signed On 06-03-2022 10:02:32 EDT by Aki Reddy
--- NOTE | 2022-06-03 10:04 | Electrocardiograph Report ---
[facility] Test Date: 2022-06-02 Test Time: 12:56:30 Pat Name: TEETEE MARTINEZ Department: Room: A460 Gender: F Freight [employer]: KELVIN : 1955 Requested By: MARLA BARRY Order Number: [id number] Reading MD: Aki Reddy Measurements Intervals [place] Rate: 72 P: 141 [place]: 123 QRS: -31 QRSD: 102 T: 95 QT: 475 QTc: 520 Interpretive Statements Sinus or ectopic atrial rhythm LVH with secondary repolarization abnormality Prolonged QT interval Compared to ECG 06/02/2022 11:30:32 Ectopic atrial rhythm now present Left ventricular hypertrophy now present Early repolarization now present Prolonged QT interval now present Sinus tachycardia no longer present Ventricular tachycardia no longer present Myocardial infarct finding no longer present Electronically Signed On 06-03-2022 10:03:43 EDT by Aki Reddy
--- NOTE | 2022-06-03 11:04 | Consultation ---
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 Admitted c/o CP & Generalized weakness Past History Past Medical History: acute [place], atrial fib, heart failure, hypertension, stroke, other (See HPI) Past Surgical History: total knee replacement, Other (Pacemaker placement) Social history: . denies: smoking, alcohol abuse, prescription drug abuse Family history: diabetes, hypertension Medications and Allergies Allergies Allergy/AdvReac Type Severity Reaction Status Date / Time Iodinated Contrast Media AdvReac Intermediate Swelling Verified 06/02/22 10:22 apple AdvReac Hives Verified 06/02/22 10:22 shell fish Allergy Swelling Uncoded 04/11/22 09:45 Home Medications Medication Instructions Recorded Confirmed Last Taken Type Gabapentin 100 mg PO BID 03/02/22 04/06/22 Unknown History Pantoprazole [Protonix TAB] 40 mg PO QDAY 03/02/22 04/06/22 03/02/22 10:00 History methIMAzole [Methimazole] 10 mg PO TID 03/10/22 04/06/22 Unknown History AtorvaSTATin [Lipitor] 20 mg PO QHS #30 tablet 03/12/22 04/06/22 Unknown Rx Sennosides/Docusate [Senokot S] 1 tab PO DAILY #30 tablet 03/12/22 04/06/22 Un known Rx Amiodarone [Cordarone 200 MG TAB] 200 mg PO . DIRECTED #60 tablet 03/23/22 04/06/22 Unknown Rx Apixaban [Eliquis] 2.5 mg PO BID #60 tab 03/23/22 04/06/22 Unknown Rx Aspirin EC [Ecotrin] 325 mg PO QDAY 30 Days #30 tablet 04/02/22 04/06/22 Unknown Rx Nitroglycerin [Nitrostat] 0.4 mg SL .Q5MIN PRN 30 Days #30 04/02/22 04/06/22 Unknown Rx tablet Apixaban [Eliquis] 2.5 mg PO Q12HR tablet 05/23/22 Unknown Rx Aspirin EC [Halfprin EC] 81 mg PO QDAY tablet 05/23/22 Unknown Rx AtorvaSTATin [Lipitor] 20 mg PO QHS tablet 05/23/22 Unknown Rx Gabapentin 100 mg PO BID capsule 05/23/22 Unknown Rx ISOSORBIDE MONOnitrate [Imdur ER] 60 mg PO QDAY tablet 05/23/22 Unknown Rx Losartan [Cozaar] 50 mg PO QDAY tablet 05/23/22 Unknown Rx Metoprolol [Lopressor TAB] 100 mg PO BID #60 tablet 05/23/22 Unknown Rx hydrALAZINE [Apresoline TAB] 50 mg PO Q8HR tablet 05/23/22 Unknown Rx oxyCODONE /ACETAMINOPHEN [Percocet 1 tab PO Q6H PRN #14 tablet 05/23/22 Unknown Rx 5/325 mg] Active Meds: Active Medications Acetaminophen (Acetaminophen 325 Mg Tab) 650 mg PO Q4H PRN PRN Reason: Pain MILD(1-3)/Fever >100.5/SILVA Last Admin: 06/03/22 04:07 Dose: 650 mg Albuterol (Albuterol 2.5 Mg/3 Ml Nebu) 2.5 mg IH Q4HRT PRN PRN Reason: Shortness Of Breath Amiodarone HCl (Amiodarone 200 Mg Tab) 200 mg PO DAILY [facility] Last Admin: 06/03/22 09:39 Dose: 200 mg Apixaban (Apixaban 2.5 Mg Tab) 2.5 mg PO BID [facility] Last Admin: 06/03/22 09:39 Dose: 2.5 mg Aspirin (Aspirin Ec 325 Mg Tab) 325 mg PO QDAY [facility] Last Admin: 06/03/22 09:39 Dose: 325 mg Atorvastatin Calcium (Atorvastatin 20 Mg Tab) 20 mg PO QHS [facility] Last Admin: 06/02/22 23:13 Dose: 20 mg Gabapentin (Gabapentin 100 Mg Cap) 100 mg PO BID [facility] Last Admin: 06/03/22 09:39 Dose: 100 mg Hydralazine HCl (Hydralazine 25 Mg Tab) 50 mg PO Q8HR [facility] Last Admin: 06/03/22 06:18 Dose: 50 mg Amiodarone HCl 900 mg/ (Dextrose) 500 mls @ 33.333 mls/hr IV DIRECT CHRISTEL; Protocol Isosorbide Mononitrate (Isosorbide Mononitrate Er 60 Mg Tab) 60 mg PO QDAY [facility] Last Admin: 06/03/22 09:39 Dose: 60 mg Losartan Potassium (Losartan 50 Mg Tab) 50 mg PO QDAY [facility] Last Admin: 06/03/22 09:39 Dose: 50 mg Methimazole (Methimazole 5 Mg Tab) 10 mg PO TID [facility] Last Admin: 06/03/22 09:38 Dose: 10 mg Metoprolol Tartrate (Metoprolol Tartrate 100 Mg Tab) 100 mg PO BID [facility] Last Admin: 06/03/22 09:42 Dose: 100 mg Morphine Sulfate (Morphine 4 Mg/1 Ml Inj) 2 mg IV Q8H PRN PRN Reason: Pain , Severe (7-10) Last Admin: 06/03/22 03:54 Dose: 2 mg Nitroglycerin (Nitroglycerin 0.4 Mg Tab Subl) 0.4 mg SL .Q5MIN PRN PRN Reason: Chest Pain Ondansetron HCl (Ondansetron 4 Mg/2 Ml Inj) 4 mg IV Q8H PRN PRN Reason: Nausea And Vomiting Oxycodone/Acetaminophen (Oxycodone /Acetaminophen 5-325mg Tab) 1 tab PO Q6H PRN PRN Reason: Pain, Moderate (4-6) Last Admin: 06/02/22 17:16 Dose: 1 tab Pantoprazole Sodium (Pantoprazole 40 Mg Tab) 40 mg PO QDAY [facility] Last Admin: 06/03/22 09:39 Dose: 40 mg Senna/Docusate Sodium (Sennosides/Docusate Sodium 8.6/50 Mg Tab) 1 tab PO DAILY [facility] Last Admin: 06/03/22 09:38 Dose: 1 tab Sodium Chloride (Sodium Chloride 0.9% 10 Ml Flush Syringe) 10 ml IV BID [facility] Last Admin: 06/03/22 09:39 Dose: 10 ml Sodium Chloride (Sodium Chloride 0.9% 10 Ml Flush Syringe) 10 ml IV PRN PRN PRN Reason: LINE FLUSH Review of Systems Constitutional: fatigue, weakness, no fever, no chills Cardiovascular: chest pain, no palpitations, no edema, no leg edema Respiratory: no cough, no shortness of breath Gastrointestinal: nausea, no abdominal pain, no vomiting Exam - Vital Signs Vital signs: Vital Signs Pulse Resp Pulse Ox 170 H 31 H 100 06/02/22 10:50 06/02/22 10:50 07/24/22 10:50 - General Appearance General appearance: other (Awake & alert) EENT: PERRL, mucous membranes moist, hearing intact Neck: Present: neck supple. Absent: JVD/HJR Respiratory: Other (Good air entry) Heart: regular Gastrointestinal: Present: other (Soft). Absent: tenderness Integumentary: no rash, warm and dry Neurologic: no focal deficit, alert and oriented x3 Additional exam: Rt arm AVG with +Bruit Results - Lab Results 06/02/22 12:22 06/03/22 00:32 Most recent lab results Calcium 9.3 mg/dL (8.4-10.2) 06/03/22 00:32 Magnesium 2.10 mg/dL (1.7-2.3) 06/02/22 12:22 Assessment and Plan ESRD - HD in am & through admission HTN -F/u on meds CP - F/u Mx per Cardiology Thanks, will f/u with you
[2022-06-03] MEDS ORDERED: SODIUM CHLORIDE 0.9% 100 ML IV PRN (12:00)
[2022-06-03] MEDS ORDERED: EPOETIN ALFA-EPBX 10,000 UNIT/1 ML VIAL IV PRN (12:00)
--- NOTE | 2022-06-03 12:04 | Progress Note ---
Assessment and Plan Assessment and plan: #Angina at rest ACS protocol: Serial cardiac enzymes, EKG, telemetry monitoring, cardiology team consulted. Further care and evaluation as per cardiology team. Echocardiogram from 05/23/2022 reviewed. #Chronic diastolic heart failurestable Strict I's/O, Q shift, daily weight, afterload reduction, blood pressure control, echocardiogram from 05/23/2022 reviewed. #ESRD on hemodialysis -Access: Right upper extremity AV fistula -Outpatient schedule: [facility] -HD center: Unknown -Nephrology consulted; appreciate recs. -Renally dose medications and avoid nephrotoxic drugs. Renal diet. #Thyrotoxicosisstable Supportive care, resume prehospital methimazole therapy, monitor vital signs per routine, supportive care. #Hypertensive emergencyresolved Monitor blood pressure every shift, IV antihypertensive therapy, monitor blood pressure q. nursing care protocol, supportive care. #Atrial fibrillation with rapid ventricular response Rate control, resume prehospital amiodarone, echocardiogram reviewed. cardiology team consulted. Therapeutic anticoagulation #Hyperlipidemia Statin therapy, low-cholesterol diet, supportive care. #Bipolar 1 disorder Continue medical management. No acute exacerbation at this time. #Noninsulin-dependent type II diabetes mellitus Consistent carbohydrate diet, Accu-Chek, insulin protocol, hypoglycemia protocol, supportive care. #COPD (chronic obstructive pulmonary disease)stable Supplemental oxygen, nebulized therapy, no acute exacerbation at this time. Continue medical management. #Tobacco dependence #Tobacco/Smoking cessation counseling - Counseled patient about the importance of smoking cessation and the possible sequelae as a result of continued tobacco consumption. The patient expresses understanding. -Time: +15 mins #Advanced care planning -Disease education conducted, care plan discussed, diagnoses discussed, prognosis discussed, and patient acknowledges understanding with care plan -Time: +30 min Disposition Plan: Continue medical management Total Time Spent with Patient (Minutes): 45 min History Interval history: No acute events overnight. Hospitalist Physical - Constitutional Vitals: Temp Pulse Resp BP Pulse Ox 98.1 F 70 19 120/68 97 06/03/22 07:29 06/03/22 07:29 06/03/22 07:29 06/03/22 07:29 06/03/22 11:06 General appearance: Present: no acute distress, well-nourished - EENT Eyes: Present: PERRL, EOM intact ENT: hearing intact, clear oral mucosa, dentition normal - Neck Neck: Present: supple, normal ROM - Respiratory Respiratory effort: normal Respiratory: bilateral: CTA - Cardiovascular Rhythm: regular Heart Sounds: Present: S1 & S2 - Extremities Extremities: no ischemia, pulses intact, pulses symmetrical, No edema, normal temperature, normal color, abnormal (RUE AV fistula with palpable thrill) Peripheral Pulses: within normal limits - Abdominal General gastrointestinal: soft, non-tender, non-distended, normal bowel sounds - Integumentary Integumentary: Present: clear, warm - Psychiatric Psychiatric: appropriate mood/affect, memory intact, cooperative - Neurologic Neurologic: CNII-XII intact, moves all extremities - Allied Health Allied health notes reviewed: nursing HEART Score - HEART Score EKG: Non-specific Age: > 65 Risk factors: > 3 risk factors or hx of atherosclerotic disease Troponin: Troponin T 0.034 ng/mL (0.00-0.029) H 06/03/22 00:32 Troponin: < normal limit Results - Labs CBC & Chem 7: 06/02/22 12:22 06/03/22 00:32 Labs: Laboratory Last Values WBC 9.1 K/mm3 (4.5-11.0) 06/02/22 12:22 RBC 3.59 M/mm3 (3.65-5.03) L 06/02/22 12:22 Hgb 11.7 gm/dl (10.1-14.3) 06/02/22 12:22 Hct 35.8 % (30.3-42.9) 06/02/22 12:22 MCV 100 fl (79-97) H 06/02/22 12:22 MCH 33 pg (28-32) H 06/02/22 12:22 MCHC 33 % (30-34) 06/02/22 12:22 RDW 20.2 % (13.2-15.2) H 06/02/22 12:22 Plt Count 192 K/mm3 (140-440) 06/02/22 12:22 Lymph % (Auto) 12.4 % (13.4-35.0) L 06/02/22 12:22 Hitchcock % (Auto) 9.1 % (0.0-7.3) H 06/02/22 12:22 Eos % (Auto) 0.5 % (0.0-4.3) 06/02/22 12:22 Baso % (Auto) 1.0 % (0.0-1.8) 06/02/22 12:22 Lymph # (Auto) 1.1 K/mm3 (1.2-5.4) L 06/02/22 12:22 Hitchcock # (Auto) 0.8 K/mm3 (0.0-0.8) 06/02/22 12:22 Eos # (Auto) 0.0 K/mm3 (0.0-0.4) 06/02/22 12:22 Baso # (Auto) 0.1 K/mm3 (0.0-0.1) 06/02/22 12:22 Seg Neutrophils % 77.0 % (40.0-70.0) H 06/02/22 12: Seg Neutrophils # 7.0 K/mm3 (1.8-7.7) 06/02/22 12:22 PT 16.8 Sec. (12.2-14.9) H 06/02/22 12: INR 1.22 (0.87-1.13) H 06/02/22 12:22 APTT 36.9 Sec. (24.2-36.6) H 06/02/22 12:22 Sodium 137 mmol/L (137-145) 06/03/22 00:32 Potassium 4.4 mmol/L (3.6-5.0) 06/03/22 00:32 Chloride 95.3 mmol/L (98-107) L 06/03/22 00:32 Carbon Dioxide 25 mmol/L (22-30) 06/03/22 00:32 Anion Gap 21 mmol/L 06/03/22 00:32 BUN 33 mg/dL (7-17) H 06/03/22 00:32 Creatinine 4.3 mg/dL (0.6-1.2) H 06/03/22 00:32 Estimated GFR 12 ml/min 06/03/22 00:32 BUN/Creatinine Ratio 8 % 06/03/22 00:32 Glucose 133 mg/dL (65-100) H 06/03/22 00:32 POC Glucose 110 mg/dL (70-105) H 06/03/22 11:48 Calcium 9.3 mg/dL (8.4-10.2) 06/03/22 00:32 Magnesium 2.10 mg/dL (1.7-2.3) 06/02/22 12:22 Total Bilirubin 1.40 mg/dL (0.1-1.2) H 06/02/22 12:22 AST 21 units/L (5-40) 06/02/22 12:22 ALT 20 units/L (7-56) 06/02/22 12:22 Alkaline Phosphatase 96 units/L (35-129) 06/02/22 12:22 Troponin T 0.034 ng/mL (0.00-0.029) H 06/03/22 00:32 Total Protein 6.9 g/dL (6.3-8.2) 06/02/22 12:22 Albumin 4.1 g/dL (3.9-5) 06/02/22 12:22 Albumin/Globulin Ratio 1.5 % 06/02/22 12:22 Triglycerides 79 mg/dL (2-149) 06/02/22 19:48 Cholesterol 108 mg/dL (50-199) 06/02/22 19:48 LDL Cholesterol Direct 50 mg/dL (50-130) 06/02/22 19:48 HDL Cholesterol 49 mg/dL (40-59) 06/02/22 19:48 Cholesterol/HDL Ratio 2.20 % 06/02/22 19:48 TSH 1.960 mlU/mL (0.270-4.200) 06/02/22 12:22 Free T4 2.24 ng/dL (0.76-1.46) H 06/02/22 12:22 Active Medications - Current Medications Current Medications: Generic Name Dose Route Start Last Admin Trade Name Reinierq PRN Reason Stop Dose Admin Acetaminophen 650 mg 06/02/22 16:22 06/03/22 04:07 Acetaminophen 325 Mg Tab PO 650 mg Q4H PRN Administration Pain MILD(1-3)/Fever >100.5/SILVA Albuterol 2.5 mg 06/02/22 16:22 Albuterol 2.5 Mg/3 Ml Nebu IH Q4HRT PRN Shortness Of Breath Amiodarone HCl 200 mg 06/02/22 17:00 06/03/22 09:39 Amiodarone 200 Mg Tab PO 200 mg DAILY CHRISTEL Administration Apixaban 2.5 mg 06/02/22 22:00 06/03/22 09:39 Apixaban 2.5 Mg Tab PO 2.5 mg BID CHRISTEL Administration Aspirin 325 mg 06/03/22 10:00 06/03/22 09:39 Aspirin Ec 325 Mg Tab PO 325 mg QDAY CHRISTEL Administration Atorvastatin Calcium 20 mg 06/02/22 22:00 06/02/22 23:13 Atorvastatin 20 Mg Tab PO 20 mg QHS CHRISTEL Administration Epoetin Heladio-epbx 10,000 unit 06/03/22 12:00 Epoetin Heladio-Epbx 10,000 Unit/1 Ml Vial IV KARLENE PRN hemodialysis Gabapentin 100 mg 06/02/22 22:00 06/03/22 09:39 Gabapentin 100 Mg Cap PO 100 mg BID CHRISTEL Administration Hydralazine HCl 50 mg 06/02/22 22:00 06/03/22 06:18 Hydralazine 25 Mg Tab PO 50 mg Q8HR CHRISTEL Administration Amiodarone HCl 900 mg/ 500 mls @ 33.333 mls/hr 06/02/22 20:00 Dextrose IV DIRECT CHRISTEL Protocol 1 MG/MIN Sodium Chloride 100 mls @ 999 mls/hr 06/03/22 12:00 Nacl 0.9% IV KARLENE PRN Hypotension Isosorbide Mononitrate 60 mg 06/03/22 10:00 06/03/22 09:39 Isosorbide Mononitrate Er 60 Mg Tab PO 60 mg QDAY CHRISTEL Administration Losartan Potassium 50 mg 06/03/22 10:00 06/03/22 09:39 Losartan 50 Mg Tab PO 50 mg QDAY CHRISTEL Administration Methimazole 10 mg 06/02/22 20:00 06/03/22 09:38 Methimazole 5 Mg Tab PO 10 mg TID CHRISTEL Administration Metoprolol Tartrate 100 mg 06/02/22 22:00 06/03/22 09:42 Metoprolol Tartrate 100 Mg Tab PO 100 mg BID CHRISTEL Administration Morphine Sulfate 2 mg 06/02/22 16:22 06/03/22 03:54 Morphine 4 Mg/1 Ml Inj IV 2 mg Q8H PRN Administration Pain , Severe (7-10) Nitroglycerin 0.4 mg 06/02/22 16:21 Nitroglycerin 0.4 Mg Tab Subl SL .Q5MIN PRN Chest Pain Ondansetron HCl 4 mg 06/02/22 16:22 Ondansetron 4 Mg/2 Ml Inj IV Q8H PRN Nausea And Vomiting Oxycodone/Acetaminophen 1 tab 06/02/22 16:22 06/02/22 17:16 Oxycodone /Acetaminophen 5-325mg Tab PO 1 tab Q6H PRN Administration Pain, Moderate (4-6) Pantoprazole Sodium 40 mg 06/03/22 10:00 06/03/22 09:39 Pantoprazole 40 Mg Tab PO 40 mg QDAY CHRISTEL Administration Senna/Docusate Sodium 1 tab 06/03/22 10:00 06/03/22 09:38 Sennosides/Docusate Sodium 8.6/50 Mg Tab PO 1 tab DAILY CHRISTEL Administration Sodium Chloride 10 ml 06/02/22 22:00 06/03/22 09:39 Sodium Chloride 0.9% 10 Ml Flush Syringe IV 10 ml BID CHRITSEL Administration Sodium Chloride 10 ml 06/02/22 16:22 Sodium Chloride 0.9% 10 Ml Flush Syringe IV PRN PRN LINE FLUSH
--- NOTE | 2022-06-03 14:25 | Consultation ---
History of Present Illness Consult date: 06/03/22 Consult reason: atrial fibrillation History of present illness: The patient is a 67-year-old woman with coronary artery disease and paroxysmal atrial fibrillation. She has coronary stents in her LAD implanted several years ago, which have been patent on repeat cardiac catheterization, and a follow-up thallium stress test within the past year has also shown normal perfusion. Her past 2-3 admissions have been for acute symptomatic atrial fibrillation. She presents to the hospital at this time with acute onset palpitations, on presentation was found with atrial fibrillation, heart rate in the 140s. The patient is currently on the telemetry floor, having reverted to a stable sinus rhythm on medical therapy. She looks and feels well at this time. Over the past few years, serial left ventricular function assessments have documented well-preserved left ventricular systolic ejection fraction. Past History Past Medical History: acute SC, atrial fib, CAD, heart failure, hypertension, stroke, other (See HPI) Past Surgical History: total knee replacement, Other (Pacemaker placement) Social history: . denies: smoking, alcohol abuse, prescription drug abuse Family history: diabetes, hypertension Medications and Allergies Allergies Allergy/AdvReac Type Severity Reaction Status Date / Time Iodinated Contrast Media AdvReac Intermediate Swelling Verified 06/02/22 10:22 apple AdvReac Hives Verified 06/02/22 10:22 shell fish Allergy Swelling Uncoded 04/11/22 09:45 Home Medications Medication Instructions Recorded Confirmed Last Taken Type Gabapentin 100 mg PO BID 03/02/22 04/06/22 Unknown History Pantoprazole [Protonix TAB] 40 mg PO QDAY 03/02/22 04/06/22 03/02/22 10:00 History methIMAzole [Methimazole] 10 mg PO TID 03/10/22 04/06/22 Unknown History AtorvaSTATin [Lipitor] 20 mg PO QHS #30 tablet 03/12/22 04/06/22 Unknown Rx Sennosides/Docusate [Senokot S] 1 tab PO DAILY #30 tablet 03/12/22 04/06/22 Unknown Rx Amiodarone [Cordarone 200 MG TAB] 200 mg PO . DIRECTED #60 tablet 03/23/22 04/06/22 Unknown Rx Apixaban [Eliquis] 2.5 mg PO BID #60 tab 03/23/22 04/06/22 Unknown Rx Aspirin EC [Ecotrin] 325 mg PO QDAY 30 Days #30 tablet 04/02/22 04/06/22 Unknown Rx Nitroglycerin [Nitrostat] 0.4 mg SL .Q5MIN PRN 30 Days #30 04/02/22 04/06/22 Unknown Rx tablet Apixaban [Eliquis] 2.5 mg PO Q12HR tablet 05/23/22 Unknown Rx Aspirin EC [Halfprin EC] 81 mg PO QDAY tablet 05/23/22 Unknown Rx AtorvaSTATin [Lipitor] 20 mg PO QHS tablet 05/23/22 Unknown Rx Gabapentin 100 mg PO BID capsule 05/23/22 Unknown Rx ISOSORBIDE MONOnitrate [Imdur ER] 60 mg PO QDAY tablet 05/23/22 Unknown Rx Losartan [Cozaar] 50 mg PO QDAY tablet 05/23/22 Unknown Rx Metoprolol [Lopressor TAB] 100 mg PO BID #60 tablet 05/23/22 Unknown Rx hydrALAZINE [Apresoline TAB] 50 mg PO Q8HR tablet 05/23/22 Unknown Rx oxyCODONE /ACETAMINOPHEN [Percocet 1 tab PO Q6H PRN #14 tablet 05/23/22 Unknown Rx 5/325 mg] Active Meds: Active Medications Acetaminophen (Acetaminophen 325 Mg Tab) 650 mg PO Q4H PRN PRN Reason: Pain MILD(1-3)/Fever >100.5/SILVA Last Admin: 06/03/22 04:07 Dose: 650 mg Albuterol (Albuterol 2.5 Mg/3 Ml Nebu) 2.5 mg IH Q4HRT PRN PRN Reason: Shortness Of Breath Amiodarone HCl (Amiodarone 200 Mg Tab) 200 mg PO DAILY [facility] Last Admin: 06/03/22 09:39 Dose: 200 mg Apixaban (Apixaban 2.5 Mg Tab) 2.5 mg PO BID [facility] Last Admin: 06/03/22 09:39 Dose: 2.5 mg Aspirin (Aspirin Ec 325 Mg Tab) 325 mg PO QDAY [facility] Last Admin: 06/03/22 09:39 Dose: 325 mg Atorvastatin Calcium (Atorvastatin 20 Mg Tab) 20 mg PO QHS [facility] Last Admin: 06/02/22 23:13 Dose: 20 mg Epoetin Heladio-epbx (Epoetin Heladio-Epbx 10,000 Unit/1 Ml Vial) 10,000 unit IV KARLENE PRN PRN Reason: hemodialysis Gabapentin (Gabapentin 100 Mg Cap) 100 mg PO BID [facility] Last Admin: 06/03/22 09:39 Dose: 100 mg Hydralazine HCl (Hydralazine 25 Mg Tab) 50 mg PO Q8HR [facility] Last Admin: 06/03/22 13:12 Dose: 50 mg Amiodarone HCl 900 mg/ (Dextrose) 500 mls @ 33.333 mls/hr IV DIRECT CHRISTEL; Protocol Sodium Chloride (Nacl 0.9%) 100 mls @ 999 mls/hr IV KARLENE PRN PRN Reason: Hypotension Isosorbide Mononitrate (Isosorbide Mononitrate Er 60 Mg Tab) 60 mg PO QDAY [facility] Last Admin: 06/03/22 09:39 Dose: 60 mg Losartan Potassium (Losartan 50 Mg Tab) 50 mg PO QDAY [facility] Last Admin: 06/03/22 09:39 Dose: 50 mg Methimazole (Methimazole 5 Mg Tab) 10 mg PO TID [facility] Last Admin: 06/03/22 13:12 Dose: 10 mg Metoprolol Tartrate (Metoprolol Tartrate 100 Mg Tab) 100 mg PO BID [facility] Last Admin: 06/03/22 09:42 Dose: 100 mg Morphine Sulfate (Morphine 4 Mg/1 Ml Inj) 2 mg IV Q8H PRN PRN Reason: Pain , Severe (7-10) Last Admin: 06/03/22 03:54 Dose: 2 mg Nitroglycerin (Nitroglycerin 0.4 Mg Tab Subl) 0.4 mg SL .Q5MIN PRN PRN Reason: Chest Pain Ondansetron HCl (Ondansetron 4 Mg/2 Ml Inj) 4 mg IV Q8H PRN PRN Reason: Nausea And Vomiting Oxycodone/Acetaminophen (Oxycodone /Acetaminophen 5-325mg Tab) 1 tab PO Q6H PRN PRN Reason: Pain, Moderate (4-6) Last Admin: 06/02/22 17:16 Dose: 1 tab Pantoprazole Sodium (Pantoprazole 40 Mg Tab) 40 mg PO QDAY [facility] Last Admin: 06/03/22 09:39 Dose: 40 mg Senna/Docusate Sodium (Sennosides/Docusate Sodium 8.6/50 Mg Tab) 1 tab PO DAILY [facility] Last Admin: 06/03/22 09:38 Dose: 1 tab Sodium Chloride (Sodium Chloride 0.9% 10 Ml Flush Syringe) 10 ml IV BID [facility] Last Admin: 06/03/22 09:39 Dose: 10 ml Sodium Chloride (Sodium Chloride 0.9% 10 Ml Flush Syringe) 10 ml IV PRN PRN PRN Reason: LINE FLUSH Review of Systems Cardiovascular: palpitations, rapid/irregular heart beat, shortness of breath, no chest pain, no orthopnea, no edema, no syncope, no lightheadedness Physical Examination Vital Signs Pulse Resp Pulse Ox 170 H 31 H 100 06/02/22 10:50 06/02/22 10:50 06/02/22 10:50 General appearance: no acute distress HEENT: Positive: PERRL Neck: Positive: neck supple Cardiac: Positive: Reg Rate and Rhythm Lungs: Positive: clear to auscultation Neuro: Positive: Grossly Intact Abdomen: Positive: Soft Female genitourinary: deferred Skin: Positive: Clear Extremities: Absent: edema Results 06/02/22 12:22 06/03/22 00:32 Lipids 06/02/22 Range/Units 19:48 Triglycerides 79 (2-149) mg/dL Cholesterol 108 (50-199) mg/dL HDL Cholesterol 49 (40-59) mg/dL Cholesterol/HDL Ratio 2.20 % Comprehensive Metabolic Panel 06/03/22 Range/Units 00:32 Sodium 137 (137-145) mmol/L Potassium 4.4 (3.6-5.0) mmol/L Chloride 95.3 L (98-107) mmol/L Carbon Dioxide 25 (22-30) mmol/L BUN 33 H (7-17) mg/dL Creatinine 4.3 H (0.6-1.2) mg/dL Glucose 133 H (65-100) mg/dL Calcium 9.3 (8.4-10.2) mg/dL EKG interpretations - Telemetry EKG Rhythm: Atrial Fibrillation (With rapid ventricular rate) Assessment and Plan - Patient Problems (1) Atrial fibrillation with rapid ventricular response Current Visit: Yes Status: Acute Plan to address problem: Patient presents with symptomatic, rapid atrial fibrillation. She has a history of paroxysmal atrial fibrillation on rhythm control therapy. She is back in a sinus rhythm, currently asymptomatic looks and feels well, we will optimize rhythm control therapy. Patient is otherwise stable for cardiac discharge and outpatient follow-up in 7 days. (2) Coronary artery disease Current Visit: Yes Status: Acute Plan to address problem: Patient has coronary artery disease with proximal mid and distal LAD stents as previously documented, stents widely patent on her repeat cardiac catheteriza tion showing, and a more recent thallium stress test was normal perfusion. She has no symptoms of angina at the current time, continue guideline directed medical therapy and outpatient follow-up.
[2022-06-03 17:00] VITALS: BP 113/58
== END 2022-06-03 18:10 | disposition home or self-care (01) ==
LOC: ED 10:19 → INTOOBSV 16:23 → 4A 16:23
PROVIDERS: ADMIT Internal Medicine; ATTEND Student in an Organized Health Care Education/Training Program
DX: I20.8 Other forms of angina pectoris (principal); R07.89 Other chest pain; I16.1 Hypertensive emergency; I13.2 Hypertensive heart and chronic kidney disease with heart failure and with stage 5 chronic kidney disease, or end stage renal disease; I50.32 Chronic diastolic (congestive) heart failure; N18.6 End stage renal disease; E11.22 Type 2 diabetes mellitus with diabetic chronic kidney disease; J44.9 Chronic obstructive pulmonary disease, unspecified; I25.2 Old myocardial infarction; E05.90 Thyrotoxicosis, unspecified without thyrotoxic crisis or storm; I48.20 Chronic atrial fibrillation, unspecified; E78.2 Mixed hyperlipidemia; E78.00 Pure hypercholesterolemia, unspecified; F31.9 Bipolar disorder, unspecified; F17.213 Nicotine dependence, cigarettes, with withdrawal; Z86.73 Personal history of transient ischemic attack (TIA), and cerebral infarction without residual deficits; Z79.899 Other long term (current) drug therapy; Z98.890 Other specified postprocedural states; Z79.82 Long term (current) use of aspirin; Z95.1 Presence of aortocoronary bypass graft; Z95.0 Presence of cardiac pacemaker
CPT/HCPCS: 36415; 71045; 80048; 80053; 80061; 82962; 83735; 84439; 84443; 84484; 85025; 85610; 85730; 93005; 96374; 96375; 96376; 99285; G0378; J1800; J2270; J2405; J3010; J3490; J0282

== ENCOUNTER 2022-07-11 15:07 | Observation (INO) | payer MEDICARE ==
[2022-07-11] MEDS ORDERED: MORPHINE 4 MG/1 ML INJ IV ONE ×2 (16:46→21:39)
[2022-07-11] MEDS ORDERED: ONDANSETRON 4 MG/2 ML INJ IV ONE ×2 (16:46→21:39)
[2022-07-11 16:57] LABS: Basophils # (Auto) 0.1 K/mm3 (0.0-0.1); Basophils % (Auto) 0.7 % (0.0-1.8); Eosinophils # (Auto) 0.1 K/mm3 (0.0-0.4); Eosinophils % (Auto) 1.3 % (0.0-4.3); Hematocrit 27.7 % (30.3-42.9); Lymphocytes # (Auto) 1.6 K/mm3 (1.2-5.4); Mean Corpuscular HGB Conc 33 % (30-34); Mean Corpuscular Volume 96 fl (79-97); Monocytes # (Auto) 0.7 K/mm3 (0.0-0.8); Monocytes % (Auto) 9.1 % (0.0-7.3); Platelet Count 173 K/mm3 (140-440); Red Blood Count 2.88 M/mm3 (3.65-5.03); Red Cell Distribution Width 18.3 % (13.2-15.2)
--- NOTE | 2022-07-11 17:06 | XRay Report ---
CHEST 1 VIEW 07/11/2022 4:47 PM INDICATION / CLINICAL INFORMATION: Chest Pain. COMPARISON: 06/02/2022 FINDINGS: SUPPORT DEVICES: Stable, satisfactory device positioning. HEART / MEDIASTINUM: Stable. LUNGS / PLEURA: Improved diffuse interstitial thickening. Stable mild left infrahilar scarring or ate lectasis. No significant pleural effusion is identified. No pneumothorax. ADDITIONAL FINDINGS: None IMPRESSION: 1. Improved interstitial pulmonary edema without other acute chest process. Signer Name: Franklin Perkins MD Signed: 07/11/2022 5:02 PM Workstation Name: [id number]
--- NOTE | 2022-07-11 17:08 | XRay Report ---
LUMBAR SPINE 2 VIEWS INDICATION: back pain after fall COMPARISON: None. FINDINGS: No acute, displaced fracture is seen. Alignment is within normal limits. Disc space height is maintained. There is mild lower lumbar facet arthropathy. The SI joints are not completely included but appear unremarkable. IMPRESSION: 1. No acute findings. Signer Name: Fco Soto MD Signed: 07/11/2022 5:03 PM Workstation Name: [id number]
[2022-07-11 17:09] LABS: INR 0.99 (0.87-1.13)
[2022-07-11 17:10] LABS: Partial Thromboplastin Time 34.3 Sec. (24.2-36.6)
[2022-07-11 17:14] LABS: Albumin 3.9 g/dL (3.9-5); Calcium 8.9 mg/dL (8.4-10.2)
--- NOTE | 2022-07-11 17:19 | Emergency Department Report ---
ED Chest Pain HPI - General Chief Complaint: Chest Pain Stated Complaint: CHEST PAIN X 3 Time Seen by Provider: 07/11/22 16:34 Source: EMS, old records reviewed Mode of arrival: Stretcher Limitations: No Limitations - History of Present Illness Initial Comments: 67 YO Female with ESRD on HD(T,R,Sa), HTN, CVA, MA, CHF, Nicotine Dependence, Atrial Fib on Therapeutic Anticoagulation, DM, COPD, HLD, Bipolar Disorder, CAD S/P Stent Placement presents to ED for evaluation with complaints of chest pain that started prior to dialysis session today. Patient states that she is having a moderate chest pressure that was initially intermittent and continued throughout her 3-hour dialysis session. Pain became more persistent and therefore she came to the ER immediately after completing her dialysis session. Pain is 8/10 intensity, constant, without aggravating or alleviating factors. Positive shortness of breath and cough productive of clear sputum reported. Patient states she is compliant with all medications. She denies fever. She is not vaccinated for COVID. Patient also states she has had frequent falls the last several months and has been walking with the walker. She last fell backwards on her back yesterday and complains of back pain secondary to fall I spoke to /converting technician note on June 02 to 2021 admission She has coronary stents in her LAD implanted several years ago, which have been patent on repeat cardiac catheterization, and a follow-up thallium stress test within the past year has also shown normal perfusion. Severity scale (0 -10): 8 - Related Data Home Medications Medication Instructions Recorded Confirmed Last Taken Gabapentin 100 mg PO BID 03/02/22 04/06/22 Unknown Pantoprazole [Protonix TAB] 40 mg PO QDAY 03/02/22 04/06/22 03/02/22 10:00 methIMAzole [Methimazole] 10 mg PO TID 03/10/22 04/06/22 Unknown Previous Rx's Medication Instructions Recorded Last Taken Type AtorvaSTATin [Lipitor] 20 mg PO QHS #30 tablet 03/12/22 Unknown Rx Sennosides/Docusate [Senokot S] 1 tab PO DAILY #30 tablet 03/12/22 Unknown Rx Amiodarone [Cordarone 200 MG TAB] 200 mg PO . DIRECTED #60 tablet 03/23/22 U nknown Rx Nitroglycerin [Nitrostat] 0.4 mg SL .Q5MIN PRN 30 Days #30 04/02/22 Unknown Rx tablet Apixaban [Eliquis] 2.5 mg PO Q12HR tablet 05/23/22 Unknown Rx Aspirin EC [Halfprin EC] 81 mg PO QDAY tablet 05/23/22 Unknown Rx ISOSORBIDE MONOnitrate [Imdur ER] 60 mg PO QDAY tablet 05/23/22 Unknown Rx Losartan [Cozaar] 50 mg PO QDAY tablet 05/23/22 Unknown Rx Metoprolol [Lopressor TAB] 100 mg PO BID #60 tablet 05/23/22 Unknown Rx hydrALAZINE [Apresoline TAB] 50 mg PO Q8HR tablet 05/23/22 Unknown Rx oxyCODONE /ACETAMINOPHEN [Percocet 1 tab PO Q6H PRN #14 tablet 05/23/22 Unknown Rx 5/325 mg] Allergies Allergy/AdvReac Type Severity Reaction Status Date / Time Iodinated Contrast Media AdvReac Intermediate Swelling Verified 07/11/22 16:13 apple AdvReac Hives Verified 07/11/22 16:13 shell fish Allergy Swelling Uncoded 04/11/22 09:45 Heart Score - HEART Score History: Moderately suspicious EKG: Non-specific Age: > 65 Risk factors: > 3 risk factors or hx of atherosclerotic disease Troponin: 1-3x normal limit HEART Score: 7 - EKG Read Time Time EKG Completed: 16:32 EKG Read Time: 16:40 ED Review of Systems ROS: Stated complaint: CHEST PAIN X 3 Other details as noted in HPI Comment: All other systems reviewed and negative ED Past Medical Hx - Past Medical History Hx Hypertension: Yes Hx CVA: Yes (right sided weakness) Hx Heart Attack/AMI: Yes (1 stent) Hx Congestive Heart Failure: Yes Hx Diabetes: Yes Hx GERD: Yes Hx Renal Disease: Yes (RENAL INSUFFICIENCY- stent left kidney) Hx Sickle Cell Disease: No Hx Kidney Stones: No Hx Psychiatric Treatment: Yes (BIPOLAR/SCHIZOPHRENIA) Hx Asthma: No Hx COPD: Yes Hx HIV: No Additional medical history: HIGH CHOLESTEROL - Surgical History Hx Coronary Stent: Yes Hx Pacemaker: Yes Additional Surgical History: stent placement x 2 in 2014, knee surgery 11/2017 - Social History Smoking Status: Former Smoker Substance Use Type: None - Medications Home Medications: Home Medications Medication Instructions Recorded Confirmed Last Taken Type Gabapentin 100 mg PO BID 03/02/22 04/06/22 Unknown History Pantoprazole [Protonix TAB] 40 mg PO QDAY 03/02/22 04/06/22 03/02/22 10:00 History methIMAzole [Methimazole] 10 mg PO TID 03/10/22 04/06/22 Unknown History AtorvaSTATin [Lipitor] 20 mg PO QHS #30 tablet 03/12/22 04/06/22 Unknown Rx Sennosides/Docusate [Senokot S] 1 tab PO DAILY #30 tablet 03/12/22 04/06/22 Unknown Rx Amiodarone [Cordarone 200 MG TAB] 200 mg PO . DIRECTED #60 tablet 03/23/22 04/06/22 Unknown Rx Nitroglycerin [Nitrostat] 0.4 mg SL .Q5MIN PRN 30 Days #30 04/02/22 04/06/22 Unknown Rx tablet Apixaban [Eliquis] 2.5 mg PO Q12HR tablet 05/23/22 Unknown Rx Aspirin EC [Halfprin EC] 81 mg PO QDAY tablet 05/23/22 Unknown Rx ISOSORBIDE MONOnitrate [Imdur ER] 60 mg PO QDAY tablet 05/23/22 Unknown Rx Losartan [Cozaar] 50 mg PO QDAY tablet 05/23/22 Unknown Rx Metoprolol [Lopressor TAB] 100 mg PO BID #60 tablet 05/23/22 Unknown Rx hydrALAZINE [Apresoline TAB] 50 mg PO Q8HR tablet 05/23/22 Unknown Rx oxyCODONE /ACETAMINOPHEN [Percocet 1 tab PO Q6H PRN #14 tablet 05/23/22 Unknown Rx 5/325 mg] ED Physical Exam - General Limitations: No Limitations - Other Other exam information: General: No acute distress Head: Atraumatic Eyes: normal appearance ENT: Moist mucous membranes Neck: Normal appearance, no midline tenderness Chest: Clear to auscultation bilaterally, chest wall nontender CV: Regular rate and rhythm Abdomen: Soft, normal bowel sounds, nontender, nondistended, no rebound or guarding Back: Normal inspection, no contusion, no midline tenderness. Mild left flank tenderness on palpation Extremity: Normal inspection, full range of motion Neuro: Alert O x 3, no facial asymmetry, speech clear, equal handgrip and foot dorsiflexion. 3/5 hip extension strength Psych: Appropriate behavior Skin: No rash ED Course Vital Signs 07/11/22 07/11/22 07/11/22 16:13 16:19 20:21 Temperature 98.8 F Pulse Rate 69 72 Respiratory 22 22 Rate Blood Pressure 178/75 187/85 Blood Pressure 178/75 [Left] O2 Sat by Pulse 100 100 Oximetry 07/11/22 07/11/22 20:41 21:07 Temperature Pulse Rate 70 70 Respiratory 20 Rate Blood Pressure 181/80 Blood Pressure 176/90 [Left] O2 Sat by Pulse 100 Oximetry - Consultations Consultation #1: 07/11/22 21:[address] Trammell with [facility], rec to continue Eliquis and observe overnight for cp given cardiac hx. BLAS score - Blas Score Age > 65: (1) Yes Aspirin use within the Past 7 Days: (0) No 3 or more CAD Risk Factors: (1) Yes 2 or more Angina events in past 24 hrs: (1) Yes Known CAD with more than 50% Stenosis: (1) Yes Elevated Cardiac Markers: (0) No ST Deviation Greater than 0.5mm: (0) No BLAS Score: 4 ED Medical Decision Making - Lab Data Result diagrams: 07/11/22 16:23 07/11/22 16:23 Lab Results 07/11/22 07/11/22 07/11/22 Range/Units 16:23 16:23 16:23 WBC 7.8 (4.5-11.0) K/mm3 RBC 2.88 L (3.65-5.03) M/mm3 Hgb 9.0 L (10.1-14.3) gm/dl Hct 27.7 L (30.3-42.9) % MCV 96 (79-97) fl MCH 31 (28-32) pg MCHC 33 (30-34) % RDW 18.3 H (13.2-15.2) % Plt Count 173 (140-440) K/mm3 Lymph % (Auto) 20.0 (13.4-35.0) % [place] % (Auto) 9.1 H (0.0-7.3) % Eos % (Auto) 1.3 (0.0-4.3) % Baso % (Auto) 0.7 (0.0-1.8) % Lymph # (Auto) 1.6 (1.2-5.4) K/mm3 [place] # (Auto) 0.7 (0.0-0.8) K/mm3 Eos # (Auto) 0.1 (0.0-0.4) K/mm3 Baso # (Auto) 0.1 (0.0-0.1) K/mm3 Seg Neutrophils % 68.9 (40.0-70.0) % Seg Neutrophils # 5.4 (1.8-7.7) K/mm3 PT 14.2 (12.2-14.9) Sec. INR 0.99 (0.87-1.13) APTT 34.3 (24.2-36.6) Sec. Sodium 140 (137-145) mmol/L Potassium 3.2 L (3.6-5.0) mmol/L Chloride 98.6 (98-107) mmol/L Carbon Dioxide 29 (22-30) mmol/L Anion Gap 16 mmol/L BUN 11 (7-17) mg/dL Creatinine 1.9 H (0.6-1.2) mg/dL Estimated GFR 32 ml/min BUN/Creatinine Ratio 6 % Glucose 74 (65-100) mg/dL Calcium 8.9 (8.4-10.2) mg/dL Total Bilirubin 0.70 (0.1-1.2) mg/dL AST 16 (5-40) units/L ALT 11 (7-56) units/L Alkaline Phosphatase 82 (35-129) units/L Troponin T 0.042 H (0.00-0.029) ng/mL Total Protein 5.8 L (6.3-8.2) g/dL Albumin 3.9 (3.9-5) g/dL Albumin/Globulin Ratio 2.1 % Triglycerides 88 (2-149) mg/dL Cholesterol 136 (50-199) mg/dL LDL Cholesterol Direct 61 (50-130) mg/dL HDL Cholesterol 66 H (40-59) mg/dL Cholesterol/HDL Ratio 2.06 % 07/11/22 07/11/22 Range/Units 20:22 22:58 WBC (4.5-11.0) K/mm3 RBC (3.65-5.03) M/mm3 Hgb (10.1-14.3) gm/dl Hct (30.3-42.9) % MCV (79-97) fl MCH (28-32) pg MCHC (30-34) % RDW (13.2-15.2) % Plt Count (140-440) K/mm3 Lymph % (Auto) (13.4-35.0) % [place] % (Auto) (0.0-7.3) % Eos % (Auto) (0.0-4.3) % Baso % (Auto) (0.0-1.8) % Lymph # (Auto) (1.2-5.4) K/mm3 [place] # (Auto) (0.0-0.8) K/mm3 Eos # (Auto) (0.0-0.4) K/mm3 Baso # (Auto) (0.0-0.1) K/mm3 Seg Neutrophils % (40.0-70.0) % Seg Neutrophils # (1.8-7.7) K/mm3 PT (12.2-14.9) Sec. INR (0.87-1.13) APTT (24.2-36.6) Sec. Sodium (137-145) mmol/L Potassium (3.6-5.0) mmol/L Chloride (98-107) mmol/L Carbon Dioxide (22-30) mmol/L Anion Gap mmol/L BUN (7-17) mg/dL Creatinine (0.6-1.2) mg/dL Estimated GFR ml/min BUN/Creatinine Ratio % Glucose (65-100) mg/dL Calcium (8.4-10.2) mg/dL Total Bilirubin (0.1-1.2) mg/dL AST (5-40) units/L ALT (7-56) units/L Alkaline Phosphatase (35-129) units/L Troponin T 0.040 H 0.046 H (0.00-0.029) ng/mL Total Protein (6.3-8.2) g/dL Albumin (3.9-5) g/dL Albumin/Globulin Ratio % Triglycerides (2-149) mg/dL Cholesterol (50-199) mg/dL LDL Cholesterol Direct (50-130) mg/dL HDL Cholesterol (40-59) mg/dL Cholesterol/HDL Ratio % - EKG Data -: EKG Interpreted by Me (Michael arguelles/flutter, ventricular paced rhythm) Rate: normal (70) - EKG Data When compared to previous EKG there are: no significant change - Radiology Data Radiology results: report reviewed LUMBAR SPINE 2 VIEWS INDICATION: back pain after fall COMPARISON: None. FINDINGS: No acute, displaced fracture is seen. Alignment is within normal limits. Disc space height is maintained. There is mild lower lumbar facet arthropathy. The SI joints are not completely included but appear unremarkable. IMPRESSION: 1. No acute findings. CHEST 1 VIEW 07/11/2022 4:47 PM INDICATION / CLINICAL INFORMATION: Chest Pain. COMPARISON: 06/02/2022 FINDINGS: SUPPORT DEVICES: Stable, satisfactory device positioning. HEART / MEDIASTINUM: Stable. LUNGS / PLEURA: Improved diffuse interstitial thickening. Stable mild left infrahilar scarring or atelectasis. No significant pleural effusion is identified. No pneumothorax. ADDITIONAL FINDINGS: None IMPRESSION: 1. Improved interstitial pulmonary edema without other acute chest process. - Medical Decision Making 67-year-old female presents to the hospital with chest pain. He has a frequent ER visits and hospitalizations for the same. Positive history of CAD. As per cardiology note patient had recent unremarkable cardiac work-up. Case discussed with [place] [facility] converting technician on-call who recommends admission for observation and further evaluation. Troponin stable. Patient provided morphine for pain with nitroglycerin as needed. No acute EKG findings noted hospitalist to admit. Critical Care Time: No Critical care attestation.: If time is entered above; I have spent that time in minutes in the direct care of this critically ill patient, excluding procedure time. ED Disposition Clinical Impression: Chest pain, ESRD on dialysis, Chronic atrial fibrillation, Chronic anticoagulation Disposition: 09 ADMITTED INPATIENT Is pt being admited?: Yes Condition: Stable Time of Disposition: 23:35
[2022-07-11 17:38] LABS: Chol/HDL Ratio 2.06 %
[2022-07-11] MEDS: NITROGLYCERIN 0.4 MG TAB SUBL SL PRN ×2 (20:21→20:41)
[2022-07-11] MEDS ORDERED: ACETAMINOPHEN 325 MG TAB PO PRN (23:38)
[2022-07-11] MEDS ORDERED: ONDANSETRON 4 MG/2 ML INJ IV PRN (23:38)
[2022-07-12] MEDS ORDERED: traMADol 50 MG TAB PO PRN (00:35)
[2022-07-12] MEDS ORDERED: MAGNESIUM HYDROXIDE (MOM) ORAL LIQD UDC PO PRN (00:35)
--- NOTE | 2022-07-12 00:50 | History and Physical Report ---
History of Present Illness Date of examination: 07/12/22 Date of admission: 07/12/2022 Chief complaint: Chest Pain History of present illness: 67-year-old female with significant past medical history of end-stage renal disease-on dialysis, hypertension, CHF, CAD, CVA, nicotine dependence and atrial fibrillation on anticoagulation. She presents to the emergency room today with complaints of chest pain started prior to her dialysis session earlier today. Chest pain felt like pressure was initially intermittent but became continuous during 3 hours of dialysis session. On a scale of 10 pain was about 8/10 in severity. No known relieving or exacerbating factor. Patient has had some shortness of breath and a slight cough. She denies any fever or chills, no nausea vomiting, no diarrhea and no abdominal pain. Patient has been compliant with her medications and with her dialysis. Work-up in the emergency room today, troponin x2 were positive at 0.042 and 0 .046 respectively. Review of patient's record shows that she had coronary stents in her LAD several years ago which had remained patent on repeat cardiac cath and follow-up stress test done within the last year was within normal limits. Patient admitted for chest pain evaluation. Past History Past Medical History: acute NV, atrial fib, CAD, COPD, diabetes, dialysis, ESRD, hypertension, hyperlipidemia, stroke, other (Bipolar disorder) Past Surgical History: PTCA Social history: smoking (Former smoker), other ( stent placement x 2 in 2014, knee surgery 11/2017) Family history: no significant family history Medications and Allergies Allergies Allergy/AdvReac Type Severity Reaction Status Date / Time Iodinated Contrast Media AdvReac Intermediate Swelling Verified 07/11/22 16:13 apple AdvReac Hives Verified 07/11/22 16:13 shell fish Allergy Swelling Uncoded 04/11/22 09:45 Home Medications Medication Instructions Recorded Confirmed Last Taken Type Gabapentin 100 mg PO BID 03/02/22 04/06/22 Unknown History Pantoprazole [Protonix TAB] 40 mg PO QDAY 03/02/22 04/06/22 03/02/22 10:00 History methIMAzole [Methimazole] 10 mg PO TID 03/10/22 04/06/22 Unknown History AtorvaSTATin [Lipitor] 20 mg PO QHS #30 tablet 03/12/22 04/06/22 Unknown Rx Sennosides/Docusate [Senokot S] 1 tab PO DAILY #30 tablet 03/12/22 04/06/22 Unknown Rx Amiodarone [Cordarone 200 MG TAB] 200 mg PO . DIRECTED #60 tablet 03/23/22 04/06/22 Unknown Rx Nitroglycerin [Nitrostat] 0.4 mg SL .Q5MIN PRN 30 Days #30 04/02/22 04/06/22 Unknown Rx tablet Apixaban [Eliquis] 2.5 mg PO Q12HR tablet 05/23/22 Unknown Rx Aspirin EC [Halfprin EC] 81 mg PO QDAY tablet 05/23/22 Unknown Rx ISOSORBIDE MONOnitrate [Imdur ER] 60 mg PO QDAY tablet 05/23/22 Unknown Rx Losartan [Cozaar] 50 mg PO QDAY tablet 05/23/22 Unknown Rx Metoprolol [Lopressor TAB] 100 mg PO BID #60 tablet 05/23/22 Unknown Rx hydrALAZINE [Apresoline TAB] 50 mg PO Q8HR tablet 05/23/22 Unknown Rx oxyCODONE /ACETAMINOPHEN [Percocet 1 tab PO Q6H PRN #14 tablet 05/23/22 Unknown Rx 5/325 mg] Active Meds: Active Medications Acetaminophen (Acetaminophen 325 Mg Tab) 650 mg PO Q4H PRN PRN Reason: Pain MILD(1-3)/Fever >100.5/SILVA Magnesium Hydroxide (Magnesium Hydroxide (Mom) Oral Liqd Udc) 30 ml PO Q4H PRN PRN Reason: Constipation Morphine Sulfate (Morphine 2 Mg/1 Ml Inj) 2 mg IV Q4H PRN PRN Reason: Pain, Moderate (4-6) Nitroglycerin (Nitroglycerin 0.4 Mg Tab Subl) 0.4 mg SL .Q5MIN PRN PRN Reason: Chest Pain Last Admin: 07/11/22 20:41 Dose: 0.4 mg Ondansetron HCl (Ondansetron 4 Mg/2 Ml Inj) 4 mg IV Q8H PRN PRN Reason: Nausea And Vomiting Sodium Chloride (Sodium Chloride 0.9% 10 Ml Flush Syringe) 10 ml IV BID CHRISTEL Sodium Chloride (Sodium Chloride 0.9% 10 Ml Flush Syringe) 10 ml IV PRN PRN PRN Reason: LINE FLUSH Sodium Chloride (Sodium Chloride 0.9% 10 Ml Flush Syringe) 10 ml IV BID CHRISTEL Sodium Chloride (Sodium Chloride 0.9% 10 Ml Flush Syringe) 10 ml IV PRN PRN PRN Reason: LINE FLUSH Sodium Chloride (Sodium Chloride 0.9% 10 Ml Flush Syringe) 10 ml IV PRN PRN PRN Reason: LINE FLUSH Tramadol HCl (Tramadol 50 Mg Tab) 50 mg PO Q6H PRN PRN Reason: Pain, Moderate (4-6) Review of Systems Constitutional: no fever, no chills Ears, nose, mouth and throat: no nasal congestion, no sore throat Cardiovascular: chest pain, no palpitations Respiratory: no cough, no shortness of breath Gastrointestinal: no nausea, no vomiting, no diarrhea Genitourinary Female: no pelvic pain, no flank pain, no dysuria, no hematuria Musculoskeletal: no neck pain, no low back pain Integumentary: no rash, no pruritis Neurological: no headaches, no confusion Psychiatric: no anxiety, no depression Endocrine: no polyphagia, no polydipsia, no polyuria, no nocturia Exam - Constitutional Vitals: Temp Pulse Resp BP Pulse Ox 98.8 F 70 20 176/90 100 07/11/22 16:13 07/11/22 21:07 07/11/22 21:07 07/11/22 21:07 07/11/22 21:07 General appearance: Present: no acute distress, well-nourished - EENT Eyes: Present: PERRL, EOM intact. Absent: scleral icterus ENT: hearing intact, clear oral mucosa, dentition normal - Neck Neck: Present: supple, normal ROM - Respiratory Respiratory effort: normal Respiratory: bilateral: CTA - Cardiovascular Rhythm: regular Heart Sounds: Present: S1 & S2. Absent: gallop, systolic murmur, diastolic mu rmur, rub, click - Extremities Extremities: no ischemia, pulses intact, pulses symmetrical, No edema, normal temperature, normal color, Full ROM, abnormal (Right upper extremity AV fistula) Peripheral Pulses: within normal limits - Abdominal General gastrointestinal: Present: soft, non-tender, non-distended, normal bowel sounds. Absent: mass - Integumentary Integumentary: Present: clear, warm, dry, normal turgor. Absent: rash - Musculoskeletal Musculoskeletal: strength equal bilaterally - Psychiatric Psychiatric: appropriate mood/affect, intact judgment & insight, memory intact, cooperative - Neurologic Neurologic: CNII-XII intact, no focal deficits, moves all extremities HEART Score - HEART Score History: Moderately suspicious EKG: Non-specific Age: > 65 Risk factors: > 3 risk factors or hx of atherosclerotic disease Troponin: Troponin T 0.046 ng/mL (0.00-0.029) H 07/11/22 22:58 Troponin: 1-3x normal limit HEART Score: 7 Results - Labs CBC & Chem 7: 07/11/22 16:23 07/11/22 16:23 Labs: Abnormal lab results 07/11/22 07/11/22 07/11/22 Range/Units 16:23 16:23 20:22 RBC 2.88 L (3.65-5.03) M/mm3 Hgb 9.0 L (10.1-14.3) gm/dl Hct 27.7 L (30.3-42.9) % RDW 18.3 H (13.2-15.2) % [place] % (Auto) 9.1 H (0.0-7.3) % Potassium 3.2 L (3.6-5.0) mmol/L Creatinine 1.9 H (0.6-1.2) mg/dL Troponin T 0.042 H 0.040 H (0.00-0.029) ng/mL Total Protein 5.8 L (6.3-8.2) g/dL HDL Cholesterol 66 H (40-59) mg/dL 07/11/22 Range/Units 22:58 RBC (3.65-5.03) M/mm3 Hgb (10.1-14.3) gm/dl Hct (30.3-42.9) % RDW (13.2-15.2) % [place] % (Auto) (0.0-7.3) % Potassium (3.6-5.0) mmol/L Creatinine (0.6-1.2) mg/dL Troponin T 0.046 H (0.00-0.029) ng/mL Total Protein (6.3-8.2) g/dL HDL Cholesterol (40-59) mg/dL Assessment and Plan Assessment: 1. Chest pain-patient has history of stent placement in the past. Repeat stress test within the last year has been within normal limits. Echocardiogram done in May 2022 also shows EF of 50 to 55%. 2. End-stage renal disease on dialysis 3. History of atrial fibrillation and anticoagulation with Eliquis 4. Diabetes mellitus 5. Hypertension Plan: 1. Patient admitted and placed on telemetry. We will check serial cardiac enzymes 2. We will place patient on sliding scale insulin. We will monitor Accu-Cheks. 3. We will resume routine home medications once reconciled. 4. Consult placed to cardiology for further evaluation and recommendations. DVT prophylaxis: Patient currently on anticoagulation with Eliquis CODE STATUS: Full code
[2022-07-12] MEDS ORDERED: hydrALAZINE 20 MG/1 ML INJ IV ONE (01:13)
[2022-07-12] MEDS ORDERED: hydrALAZINE 20 MG/1 ML INJ IV PRN (02:13)
[2022-07-12] MEDS: MORPHINE 2 MG/1 ML INJ IV PRN ×2 (04:57→11:01)
[2022-07-12] MEDS ORDERED: AMIODARONE 200 MG TAB PO SCH ×2 (09:00→11:00)
--- NOTE | 2022-07-12 09:14 | Event Note ---
Patient is currently followed by Dr. Plascencia, I have informed him about the patient's admission, patient does go to [facility], He will resume her care
[2022-07-12] MEDS ORDERED: APIXABAN 2.5 MG TAB PO SCH (10:00)
[2022-07-12] MEDS ORDERED: GABAPENTIN 100 MG CAP PO SCH (10:00)
[2022-07-12] MEDS ORDERED: ASPIRIN EC 81 MG TAB PO SCH (10:00)
[2022-07-12] MEDS ORDERED: PANTOPRAZOLE 40 MG TAB PO SCH ×2 (10:00→12:00)
[2022-07-12] MEDS ORDERED: LOSARTAN 50 MG TAB PO SCH (10:00)
[2022-07-12] MEDS ORDERED: METOPROLOL TARTRATE 100 MG TAB PO SCH (10:00)
--- NOTE | 2022-07-12 10:23 | Consultation ---
History of Present Illness Consult date: 07/12/22 Consult reason: chest pain History of present illness: Patient is a 67-year-old woman with end-stage renal disease on hemodialysis, coronary artery disease and paroxysmal atrial fibrillation and flutter. With regards to her coronary artery disease, she has stents in the proximal mid and distal LAD, which was confirmed to remain patent on a follow-up cardiac catheterization several years ago. Following that, Lexiscan thallium stress test have also documented no ischemia. Her left ventricular systolic ejection fraction has remained normal, at 50 to 55% on serial measurements, most recently on echocardiogram just last month. In recent months, she has had multiple admissions to this hospital, mostly related to acute palpitations, representing symptomatic atrial fibrillation. She is on rhythm control therapy and Eliquis for oral anticoagulation. She also has an in situ, dual-chamber pacemaker. Yesterday, while at dialysis, she developed acute onset recurrent palpitations, which she describes as "hard beats", the dialysis was completed, and she was transferred to the emergency room by EMS. I reviewed the EKGs done by EMS which showed that at the time of her symptoms, she had atrial flutter with variable AV conduction, well-controlled ventricular rate. By the time of arrival in the emergency room, the patient was back in a sinus rhythm and feeling better. Past History Past Medical History: atrial fib, CAD, COPD, diabetes, dialysis, ESRD, hypertension, hyperlipidemia, stroke, other (Bipolar disorder) Past Surgical History: PTCA Social history: smoking (Former smoker), other ( stent placement x 2 in 2014, knee surgery 11/2017) Family history: no significant family history Medications and Allergies Allergies Allergy/AdvReac Type Severity Reaction Status Date / Time Iodinated Contrast Media AdvReac Intermediate Swelling Verified 07/11/22 16:13 apple AdvReac Hives Verified 07/11/22 16:13 shell fish Allergy Swelling Uncoded 04/11/22 09:45 Home Medications Medication Instructions Recorded Confirmed Last Taken Type Gabapentin 100 mg PO BID 03/02/22 04/06/22 Unknown History Pantoprazole [Protonix TAB] 40 mg PO QDAY 03/02/22 04/06/22 03/02/22 10:00 Histo ry methIMAzole [Methimazole] 10 mg PO TID 03/10/22 04/06/22 Unknown History AtorvaSTATin [Lipitor] 20 mg PO QHS #30 tablet 03/12/22 04/06/22 Unknown Rx Sennosides/Docusate [Senokot S] 1 tab PO DAILY #30 tablet 03/12/22 04/06/22 Unknown Rx Amiodarone [Cordarone 200 MG TAB] 200 mg PO . DIRECTED #60 tablet 03/23/22 04/06/22 Unknown Rx Nitroglycerin [Nitrostat] 0.4 mg SL .Q5MIN PRN 30 Days #30 04/02/22 04/06/22 Unknown Rx tablet Apixaban [Eliquis] 2.5 mg PO Q12HR tablet 05/23/22 Unknown Rx Aspirin EC [Halfprin EC] 81 mg PO QDAY tablet 05/23/22 Unknown Rx ISOSORBIDE MONOnitrate [Imdur ER] 60 mg PO QDAY tablet 05/23/22 Unknown Rx Losartan [Cozaar] 50 mg PO QDAY tablet 05/23/22 Unknown Rx Metoprolol [Lopressor TAB] 100 mg PO BID #60 tablet 05/23/22 Unknown Rx hydrALAZINE [Apresoline TAB] 50 mg PO Q8HR tablet 05/23/22 Unknown Rx oxyCODONE /ACETAMINOPHEN [Percocet 1 tab PO Q6H PRN #14 tablet 05/23/22 Unknown Rx 5/325 mg] Active Meds: Active Medications Acetaminophen (Acetaminophen 325 Mg Tab) 650 mg PO Q4H PRN PRN Reason: Pain MILD(1-3)/Fever >100.5/SILVA Apixaban (Apixaban 2.5 Mg Tab) 2.5 mg PO Q12HR [facility]; Protocol Aspirin (Aspirin Ec 81 Mg Tab) 81 mg PO QDAY [facility] Gabapentin (Gabapentin 100 Mg Cap) 100 mg PO BID [facility] Hydralazine HCl (Hydralazine 20 Mg/1 Ml Inj) 10 mg IV Q4H PRN PRN Reason: Blood Pressure Hydralazine HCl (Hydralazine 25 Mg Tab) 50 mg PO Q8HR [facility] Isosorbide Mononitrate (Isosorbide Mononitrate Er 60 Mg Tab) 60 mg PO QDAY [facility] Losartan Potassium (Losartan 50 Mg Tab) 50 mg PO QDAY [facility] Magnesium Hydroxide (Magnesium Hydroxide (Mom) Oral Liqd Udc) 30 ml PO Q4H PRN PRN Reason: Constipation Metoprolol Tartrate (Metoprolol Tartrate 100 Mg Tab) 100 mg PO BID [facility] Morphine Sulfate (Morphine 2 Mg/1 Ml Inj) 2 mg IV Q4H PRN PRN Reason: Pain, Moderate (4-6) Last Admin: 07/12/22 04:57 Dose: 2 mg Nitroglycerin (Nitroglycerin 0.4 Mg Tab Subl) 0.4 mg SL .Q5MIN PRN PRN Reason: Chest Pain Last Admin: 07/11/22 20:41 Dose: 0.4 mg Ondansetron HCl (Ondansetron 4 Mg/2 Ml Inj) 4 mg IV Q8H PRN PRN Reason: Nausea And Vomiting Pantoprazole Sodium (Pantoprazole 40 Mg Tab) 40 mg PO QDAC [facility] Sodium Chloride (Sodium Chloride 0.9% 10 Ml Flush Syringe) 10 ml IV BID [facility] Sodium Chloride (Sodium Chloride 0.9% 10 Ml Flush Syringe) 10 ml IV PRN PRN PRN Reason: LINE FLUSH Tramadol HCl (Tramadol 50 Mg Tab) 50 mg PO Q6H PRN PRN Reason: Pain, Moderate (4-6) Review of Systems Cardiovascular: chest pain, palpitations, rapid/irregular heart beat, shortness of breath, no orthopnea, no edema, no syncope, no lightheadedness Physical Examination Vital Signs Temp Pulse Resp BP Pulse Ox 98.8 F 69 22 178/75 100 07/11/22 16:13 07/11/22 16:13 07/11/22 16:13 07/11/22 16:13 07/11/22 16:13 General appearance: no acute distress HEENT: Positive: PERRL Neck: Positive: neck supple Cardiac: Positive: Reg Rate and Rhythm Lungs: Positive: Decreased Breath Sounds Neuro: Positive: Grossly Intact Abdomen: Positive: Soft Female genitourinary: deferred Skin: Positive: Clear Extremities: Absent: edema Results 07/11/22 16:23 07/11/22 16:23 Cardiac Enzymes 07/11/22 Range/Units 16:23 AST 16 (5-40) units/L Coagulation 07/11/22 Range/Units 16:23 PT 14.2 (12.2-14.9) Sec. INR 0.99 (0.87-1.13) APTT 34.3 (24.2-36.6) Sec. Lipids 07/11/22 Range/Units 16:23 Triglycerides 88 (2-149) mg/dL Cholesterol 136 (50-199) mg/dL HDL Cholesterol 66 H (40-59) mg/dL Cholesterol/HDL Ratio 2.06 % CBC 07/11/22 Range/Units 16:23 WBC 7.8 (4.5-11.0) K/mm3 RBC 2.88 L (3.65-5.03) M/mm3 Hgb 9.0 L (10.1-14.3) gm/dl Hct 27.7 L (30.3-42.9) % Plt Count 173 (140-440) K/mm3 Lymph # (Auto) 1.6 (1.2-5.4) K/mm3 [place]ie # (Auto) 0.7 (0.0-0.8) K/mm3 Eos # (Auto) 0.1 (0.0-0.4) K/mm3 Baso # (Auto) 0.1 (0.0-0.1) K/mm3 Comprehensive Metabolic Panel 07/11/22 Range/Units 16:23 Sodium 140 (137-145) mmol/L Potassium 3.2 L (3.6-5.0) mmol/L Chloride 98.6 (98-107) mmol/L Carbon Dioxide 29 (22-30) mmol/L BUN 11 (7-17) mg/dL Creatinine 1.9 H (0.6-1.2) mg/dL Glucose 74 (65-100) mg/dL Calcium 8.9 (8.4-10.2) mg/dL AST 16 (5-40) units/L ALT 11 (7-56) units/L Alkaline Phosphatase 82 (35-129) units/L Total Protein 5.8 L (6.3-8.2) g/dL Albumin 3.9 (3.9-5) g/dL EKG interpretations - Telemetry EKG Rhythm: Atrial Flutter (With variable AV conduction noted on initial ECG by EMS) Assessment and Plan - Patient Problems (1) Paroxysmal atrial flutter Current Visit: Yes Status: Acute Plan to address problem: Patient presents with acute onset palpitations which occurred during dialysis, initial EMS ECG showed that she was in atrial flutter at the time. This repre sents another episode of paroxysmal, symptomatic atrial arrhythmia. She feels better, now back in sinus rhythm. We will treat rhythm control with amiodarone 200 mg twice daily, continue Eliquis 2.5 mg twice daily for oral anticoagulation. Otherwise, patient is stable for cardiac discharge and out patient follow-up. (2) Coronary artery disease Current Visit: Yes Status: Acute Plan to address problem: Coronary artery disease is stable and asymptomatic, continue risk factor modification and guideline directed medical management as previously outlined.
--- NOTE | 2022-07-12 12:28 | Consultation ---
History of Present Illness - Reason for Consult Consult date: 07/12/22 end stage renal disease - History of Present Illness The patient is a 67 YO female known to our service with history of DM-2, HTN, HLD, Bipolar Disorder, CAD s/p Stent Placement, Paroxysmal atrial fibrillation, HFpEF, COPD, Anemia and ESRD on hemodialysis (TTS) who presented to [facility] ED 07/12/22 with c/o chest pain. Patient reports sharp, 10/10, midsternal chest pain, not radiating and started yesterday AM. She has had several admissions and ER visits with similar presentation and had extensive workup. Patient denies any N, V, D, abd pain, dizziness, cough, weakness, fever, chills, rash, blurry vision, hematuria or hemoptysis. Patient was admitted for further evaluation. Labs and imaging noted. Nephrology was consulted for ESRD management. Past History Past Medical History: atrial fib, CAD, COPD, diabetes, dialysis, ESRD, hypertension, hyperlipidemia, stroke, other (Bipolar disorder) Past Surgical History: PTCA Social history: smoking (Former smoker), other ( stent placement x 2 in 2014, knee surgery 11/2017) Family history: no significant family history Medications and Allergies Allergies Allergy/AdvReac Type Severity Reaction Status Date / Time Iodinated Contrast Media AdvReac Intermediate Swelling Verified 07/11/22 16:13 apple AdvReac Hives Verified 07/11/22 16:13 shell fish Allergy Swelling Uncoded 04/11/22 09:45 Home Medications Medication Instructions Recorded Confirmed Last Taken Type Gabapentin 100 mg PO BID 03/02/22 04/06/22 Unknown History Pantoprazole [Protonix TAB] 40 mg PO QDAY 03/02/22 04/06/22 03/02/22 10:00 History methIMAzole [Methimazole] 10 mg PO TID 03/10/22 04/06/22 Unknown History AtorvaSTATin [Lipitor] 20 mg PO QHS #30 tablet 03/12/22 04/06/22 Unknown Rx Sennosides/Docusate [Senokot S] 1 tab PO DAILY #30 tablet 03/12/22 04/06/22 Unknown Rx Amiodarone [Cordarone 200 MG TAB] 200 mg PO . DIRECTED #60 tablet 03/23/22 04/06/22 Unknown Rx Nitroglycerin [Nitrostat] 0.4 mg SL .Q5MIN PRN 30 Days #30 04/02/22 04/06/22 Unknown Rx tablet Apixaban [Eliquis] 2.5 mg PO Q12HR tablet 05/23/22 Unknown Rx Aspirin EC [Halfprin EC] 81 mg PO QDAY tablet 05/23/22 Unknown Rx ISOSORBIDE MONOnitrate [Imdur ER] 60 mg PO QDAY tablet 05/23/22 Unknown Rx Losartan [Cozaar] 50 mg PO QDAY tablet 05/23/22 Unknown Rx Metoprolol [Lopressor TAB] 100 mg PO BID #60 tablet 05/23/22 Unknown Rx hydrALAZINE [Apresoline TAB] 50 mg PO Q8HR tablet 05/23/22 Unknown Rx oxyCODONE /ACETAMINOPHEN [Percocet 1 tab PO Q6H PRN #14 tablet 05/23/22 Unknown Rx 5/325 mg] Active Meds: Active Medications Acetaminophen (Acetaminophen 325 Mg Tab) 650 mg PO Q4H PRN PRN Reason: Pain MILD(1-3)/Fever >100.5/SILVA Amiodarone HCl (Amiodarone 200 Mg Tab) 200 mg PO BID [facility] Last Admin: 07/12/22 11:04 Dose: 200 mg Apixaban (Apixaban 2.5 Mg Tab) 2.5 mg PO Q12HR [facility]; Protocol Last Admin: 07/12/22 10:51 Dose: 2.5 mg Aspirin (Aspirin Ec 81 Mg Tab) 81 mg PO QDAY [facility] Last Admin: 07/12/22 10:51 Dose: 81 mg Gabapentin (Gabapentin 100 Mg Cap) 100 mg PO BID [facility] Last Admin: 07/12/22 10:53 Dose: 100 mg Hydralazine HCl (Hydralazine 20 Mg/1 Ml Inj) 10 mg IV Q4H PRN PRN Reason: Blood Pressure Hydralazine HCl (Hydralazine 25 Mg Tab) 50 mg PO Q8HR [facility] Isosorbide Mononitrate (Isosorbide Mononitrate Er 60 Mg Tab) 60 mg PO QDAY [facility] Last Admin: 07/12/22 10:52 Dose: 60 mg Losartan Potassium (Losartan 50 Mg Tab) 50 mg PO QDAY [facility] Last Admin: 07/12/22 10:52 Dose: 50 mg Magnesium Hydroxide (Magnesium Hydroxide (Mom) Oral Liqd Udc) 30 ml PO Q4H PRN PRN Reason: Constipation Metoprolol Tartrate (Metoprolol Tartrate 100 Mg Tab) 100 mg PO BID [facility] Last Admin: 07/12/22 10:51 Dose: 100 mg Morphine Sulfate (Morphine 2 Mg/1 Ml Inj) 2 mg IV Q4H PRN PRN Reason: Pain, Moderate (4-6) Last Admin: 07/12/22 11:01 Dose: 2 mg Nitroglycerin (Nitroglycerin 0.4 Mg Tab Subl) 0.4 mg SL .Q5MIN PRN PRN Reason: Chest Pain Last Admin: 07/11/22 20:41 Dose: 0.4 mg Ondansetron HCl (Ondansetron 4 Mg/2 Ml Inj) 4 mg IV Q8H PRN PRN Reason: Nausea And Vomiting Pantoprazole Sodium (Pantoprazole 40 Mg Tab) 40 mg PO QDAC [facility] Sodium Chloride (Sodium Chloride 0.9% 10 Ml Flush Syringe) 10 ml IV BID [facility] Last Admin: 07/12/22 10:53 Dose: 10 ml Sodium Chloride (Sodium Chloride 0.9% 10 Ml Flush Syringe) 10 ml IV PRN PRN PRN Reason: LINE FLUSH Tramadol HCl (Tramadol 50 Mg Tab) 50 mg PO Q6H PRN PRN Reason: Pain, Moderate (4-6) Exam - Vital Signs Vital signs: Vital Signs Temp Pulse Resp BP Pulse Ox 98.8 F 69 22 178/75 100 07/11/22 16:13 07/11/22 16:13 07/11/22 16:13 07/11/22 16:13 07/11/22 16:13 Results - Lab Results 07/11/22 16:23 07/11/22 16:23 Most recent lab results Calcium 8.9 mg/dL (8.4-10.2) 07/11/22 16:23 Assessment and Plan 1. ESRD: Patient is on maintenance hemodialysis, TTS schedule. Hemodialysis: 2. FEN: UF with HD as tolerated. Monitor lytes and volume status. 3. Chest pain // H/o CAD s/p PCI: Monitor. 4. Paroxysmal A.flutter with RVR: Continue home meds. Monitor. 5. Chronic HFpEF: Volume control thru HD. Fluid restriction, monitor I/O. 6. H/o COPD: Nebs and O2 as needed. 7. Hypertension: Volume control with HD. Adjust BP meds as needed. Monitor BP. 8. Normochromic anemia, POA: Chronic. Likely 2/2 ESRD. Epogen as needed. Subjective: Patient was seen and examined at the bedside. Examination: General appearance: well-developed, appears stated age, no distress HEENT: atraumatic, ANA Neck: trachea midline Respiratory: faint rales heard Heart: S1S2, irregular, no murmur Abdomen: soft, bowel sounds heard, NT Integumentary: no obvious rash Neurologic: AO, able to move extremities Ext: no edema Hemodialysis access: R arm AVG
--- NOTE | 2022-07-12 13:37 | Electrocardiograph Report ---
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
[2022-07-12 13:40] VITALS: BP 129/78
--- NOTE | 2022-07-12 13:43 | Electrocardiograph Report ---
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
[2022-07-12] MEDS ORDERED: hydrALAZINE 25 MG TAB PO SCH (14:00)
--- NOTE | 2022-07-12 14:08 | Discharge Summary ---
Providers - Providers Date of Admission: 07/11/22 23:38 Date of discharge: 07/12/22 Attending physician: RADHA CAPONE MD 07/11/22 22:15 Consult to Physician [CONS] Urgent Comment: Dr. Mcwilliams spoke with Dr. Roberson @ [phone] Consulting Provider: TREVIN ROBERSON Physician Instructions: Reason For Exam: chest pain, hx of cad w/stent, chronic afib 07/12/22 Consult to Cardiac Rehabilitation [CONS] Routine Reason For Exam: Phase I 07/12/22 09:14 Consult to Physician [CONS] Routine Comment: Consulting Provider: SEBAS DELGADO Physician Instructions: Reason For Exam: ESRD informed Primary care physician: SERINA CALDWELL Hospitalization Reason for admission: ACS rule out Condition: Stable Hospital course: Patient is a 67-year-old female with history of ESRD on HD, hypertension, coronary artery disease and atrial fibrillation on anticoagulation who presented with chest pain. Troponins were 0.042 and 0.046 respectively. Cardiology was consulted. EKG revealed atrial fibrillation with RVR which the patient converted from. The patients chest pain resolved without intervention. Once clinically stable she was discharged home with family. Disposition: 01 HOME / SELF CARE / HOMELESS Final Discharge Diagnosis (Prints w/discharge instructions): Acute coronary syndrome ruled out. Atypical chest pain. paroxysmal atrial fibrillation with rapid ventricular response. Type 2 diabetes mellitus. Hypertension. coronary artery disease. End-stage renal disease requiring hemodialysis Time spent for discharge: 40 minutes Core Measure Documentation - Palliative Care Palliative Care/ Comfort Measures: Not Applicable - Core Measures Any of the following diagnoses?: none Exam - Physical Exam Narrative exam: GENERAL: Thin elderly female. In no acute distress. HEENT: Nasal cannula in place at 3 L/min. NECK: Supple. CHEST/LUNGS: CTAB on supplemental oxygen. HEART/CARDIOVASCULAR: RRR. No murmur, rubs or gallops appreciated. ABDOMEN: +BS. NT/ND. SKIN: No rashes noted. NEURO: No focal motor deficit. Follows all commands. MUSCULOSKELETAL: No joint effusion EXTREMITIES: RUE AVF. No cyanosis, clubbing or edema. PSYCH: Cooperative. 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 We reviewed the EKG taken while you were having chest pain and it showed that you were in atrial fibrillation at that time. Since this is a chronic issue for you, we want you to continue taking the amiodarone and eliquis. Please take all your medications as they are prescribed to you. Make sure you report for dialysis on your usual Friday, , Friday schedule. Follow up with: SERINA CALDWELL MD [Primary Care Provider] - 7 Days Prescriptions: Amiodarone [Cordarone 200 MG TAB] 200 mg PO BID 30 Days #60 tablet
[2022-07-12 16:34] LABS: Hematocrit 25.2 % (30.3-42.9); Hemoglobin 8.3 gm/dl (10.1-14.3); Mean Corpuscular HGB Conc 33 % (30-34); Mean Corpuscular Volume 97 fl (79-97); Platelet Count 166 K/mm3 (140-440); Red Cell Distribution Width 18.6 % (13.2-15.2)
== END 2022-07-12 17:30 | disposition home or self-care (01) ==
LOC: ED 15:07 → INTOOBSV 23:38 → 4A 23:38
PROVIDERS: ADMIT Internal Medicine Geriatric Medicine; ATTEND Student in an Organized Health Care Education/Training Program
DX: R07.89 Other chest pain (principal); Z20.822 Contact with and (suspected) exposure to COVID-19; I13.2 Hypertensive heart and chronic kidney disease with heart failure and with stage 5 chronic kidney disease, or end stage renal disease; I50.9 Heart failure, unspecified; N18.6 End stage renal disease; E11.22 Type 2 diabetes mellitus with diabetic chronic kidney disease; I48.20 Chronic atrial fibrillation, unspecified; K21.9 Gastro-esophageal reflux disease without esophagitis; I25.10 Atherosclerotic heart disease of native coronary artery without angina pectoris; J44.9 Chronic obstructive pulmonary disease, unspecified; I25.2 Old myocardial infarction; E78.00 Pure hypercholesterolemia, unspecified; Z87.891 Personal history of nicotine dependence; Z99.2 Dependence on renal dialysis; Z95.1 Presence of aortocoronary bypass graft; Z79.82 Long term (current) use of aspirin
CPT/HCPCS: 36415; 71045; 72100; 80053; 80061; 82565; 84484; 85025; 85027; 85610; 85730; 93005; 96374; 96375; 96376; 99285; 99406; G0378; J0360; J2270; J2405; U0003

== ENCOUNTER 2022-07-17 19:27 | Emergency (ER) | payer MEDICARE ==
[2022-07-17 19:39] VITALS: BP 191/96
--- NOTE | 2022-07-18 10:36 | Electrocardiograph Report ---
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
== END 2022-07-17 20:02 | disposition left against medical advice (07) ==
LOC: ED 19:27
DX: R07.89 Other chest pain (principal); Z53.21 Procedure and treatment not carried out due to patient leaving prior to being seen by health care provider
CPT/HCPCS: 93005

== ENCOUNTER 2022-07-18 13:17 | Observation (INO) | payer MEDICARE ==
[2022-07-18] MEDS ORDERED: MORPHINE 4 MG/1 ML INJ IV ONE (14:37)
[2022-07-18] MEDS ORDERED: ONDANSETRON 4 MG/2 ML INJ IV ONE (14:37)
--- NOTE | 2022-07-18 15:20 | XRay Report ---
CHEST 1 VIEW 07/18/2022 2:51 PM INDICATION / CLINICAL INFORMATION: chest pain. COMPARISON: Radiograph 07/11/2022 FINDINGS: SUPPORT DEVICES: Left chest wall cardiac device with intact leads. HEART / MEDIASTINUM: Moderate cardiomegaly. Moderate central pulmonary vascular prominence. LUNGS / PLEURA: Diffuse interstitial prominence. No focal areas of consolidation. No pneumothorax. ADDITIONAL FINDINGS: No significant additional findings. IMPRESSION: 1. Moderate cardiomegaly and pulmonary edema, which is slightly worsened as compared to prior exam da domenico 07/11/2022. Signer Name: Mark Pereira MD Signed: 07/18/2022 3:15 PM Workstation Name: [id number]
--- NOTE | 2022-07-18 15:35 | Emergency Department Report ---
ED General Adult HPI - General Chief complaint: Chest Pain Stated complaint: CHEST PAIN Time Seen by Provider: 07/18/22 14:18 Source: patient, EMS Mode of arrival: Stretcher Limitations: No Limitations - History of Present Illness Initial comments: The patient presents to the emergency department with a chief complaint of chest pain that has been present since last night. Patient states she came to the emergency department for evaluation last night and left due to overcrowding. Patient states the chest pain is located on left side of her chest without radiation. She states the chest pain became worse during dialysis today. Patient also complains of a cough but denies shortness of breath. -: Sudden Location: chest Severity scale (0 -10): 8 Quality: sharp Consistency: constant Improves with: none Worsens with: none Associated Symptoms: denies other symptoms Treatments Prior to Arrival: none - Related Data Home Medications Medication Instructions Recorded Confirmed Last Taken Gabapentin 100 mg PO BID 03/02/22 07/12/22 Unknown Pantoprazole [Protonix TAB] 40 mg PO QDAY 03/02/22 07/12/22 03/02/22 10:00 methIMAzole [Methimazole] 10 mg PO TID 03/10/22 07/12/22 Unknown Levalbuterol Tartrate 2 puff INHALATION Q6HR PRN 07/12/22 07/12/22 Unknown [Levalbuterol Tartrate Hfa] amLODIPine 10 mg PO DAILY 07/12/22 07/12/22 Unknown carvediloL [Coreg] 25 mg PO BID 07/12/22 07/12/22 Unknown cloNIDine [Catapres] 0.1 mg PO Q8H 07/12/22 07/12/22 Unknown Previous Rx's Medication Instructions Recorded Last Taken Type Sennosides/Docusate [Senokot S] 1 tab PO DAILY #30 tablet 03/12/22 Unknown Rx Nitroglycerin [Nitrostat] 0.4 mg SL .Q5MIN PRN 30 Days #30 04/02/22 Unknown Rx tablet Apixaban [Eliquis] 2.5 mg PO Q12HR tablet 05/23/22 Unknown Rx Aspirin EC [Halfprin EC] 81 mg PO QDAY tablet 05/23/22 Unknown Rx ISOSORBIDE MONOnitrate [Imdur ER] 60 mg PO QDAY tablet 05/23/22 Unknown Rx Losartan [Cozaar] 50 mg PO QDAY tablet 05/23/22 Unknown Rx Metoprolol [Lopressor TAB] 100 mg PO BID #60 tablet 05/23/22 Unknown Rx hydrALAZINE [Apresoline TAB] 50 mg PO Q8HR tablet 05/23/22 Unknown Rx Amiodarone [Cordarone 200 MG TAB] 200 mg PO BID 30 Days #60 tablet 07/12/22 Unknown Rx Allergies Allergy/AdvReac Type Severity Reaction Status Date / Time Iodinated Contrast Media AdvReac Intermediate Swelling Verified 07/18/22 13:38 apple AdvReac Hives Verified 07/18/22 13:38 shell fish Allergy Swelling Uncoded 07/18/22 13:38 ED Review of Systems ROS: Stated complaint: CHEST PAIN Other details as noted in HPI Comment: All other systems reviewed and negative Constitutional: denies: chills, fever Eyes: denies: eye pain, eye discharge, vision change ENT: denies: ear pain, throat pain Respiratory: denies: cough, shortness of breath, wheezing Cardiovascular: chest pain. denies: palpitations Endocrine: no symptoms reported Gastrointestinal: denies: abdominal pain, nausea, diarrhea Genitourinary: denies: urgency, dysuria, discharge Musculoskeletal: denies: back pain, joint swelling, arthralgia Skin: denies: rash, lesions Neurological: denies: headache, weakness, paresthesias Psychiatric: denies: anxiety, depression Hematological/Lymphatic: denies: easy bleeding, easy bruising ED Past Medical Hx - Past Medical History Previous Medical History?: Yes Hx Hypertension: Yes Hx CVA: Yes (right sided weakness) Hx Heart Attack/AMI: Yes (1 stent) Hx Congestive Heart Failure: Yes Hx Diabetes: Yes Hx GERD: Yes Hx Renal Disease: Yes (REQ DIALYSIS E Fri) Hx Sickle Cell Disease: No Hx Kidney Stones: No Hx Psychiatric Treatment: Yes (BIPOLAR/SCHIZOPHRENIA) Hx Asthma: No Hx COPD: Yes (REQ 3L O2 CONTINOUSLY) Hx HIV: No Additional medical history: HIGH CHOLESTEROL - Surgical History Past Surgical History?: Yes Hx Coronary Stent: Yes Hx Pacemaker: Yes Additional Surgical History: stent placement x 2 in 2014, knee surgery 11/2017, ABD SX 2020 - Social History Smoking Status: Never Smoker Substance Use Type: None - Medications Home Medications: Home Medications Medication Instructions Recorded Confirmed Last Taken Type Gabapentin 100 mg PO BID 03/02/22 07/12/22 Unknown History Pantoprazole [Protonix TAB] 40 mg PO QDAY 03/02/22 07/12/22 03/02/22 10:00 History methIMAzole [Methimazole] 10 mg PO TID 03/10/22 07/12/22 Unknown History Sennosides/Docusate [Senokot S] 1 tab PO DAILY #30 tablet 03/12/22 07/12/22 Unknown Rx Nitroglycerin [Nitrostat] 0.4 mg SL .Q5MIN PRN 30 Days #30 04/02/22 07/12/22 Unknown Rx tablet Apixaban [Eliquis] 2.5 mg PO Q12HR tablet 05/23/22 07/12/22 Unknown Rx Aspirin EC [Halfprin EC] 81 mg PO QDAY tablet 05/23/22 07/12/22 Unknown Rx ISOSORBIDE MONOnitrate [Imdur ER] 60 mg PO QDAY tablet 05/23/22 07/12/22 Unknown Rx Losartan [Cozaar] 50 mg PO QDAY tablet 05/23/22 07/12/22 Unknown Rx Metoprolol [Lopressor TAB] 100 mg PO BID #60 tablet 05/23/22 07/12/22 Unknown Rx hydrALAZINE [Apresoline TAB] 50 mg PO Q8HR tablet 05/23/22 07/12/22 Unknown Rx Amiodarone [Cordarone 200 MG TAB] 200 mg PO BID 30 Days #60 tablet 07/12/22 Unknown Rx Levalbuterol Tartrate 2 puff INHALATION Q6HR PRN 07/12/22 07/12/22 Unknown History [Levalbuterol Tartrate Hfa] amLODIPine 10 mg PO DAILY 07/12/22 07/12/22 Unknown History carvediloL [Coreg] 25 mg PO BID 07/12/22 07/12/22 Unknown History cloNIDine [Catapres] 0.1 mg PO Q8H 07/12/22 07/12/22 Unknown History ED Physical Exam - General Limitations: No Limitations General appearance: alert, in no apparent distress - Head Head exam: Present: atraumatic, normocephalic - Eye Eye exam: Present: normal appearance, PERRL, EOMI - ENT ENT exam: Present: mucous membranes moist - Neck Neck exam: Present: normal inspection - Respiratory Respiratory exam: Present: normal lung sounds bilaterally. Absent: respiratory distress - Cardiovascular Cardiovascular Exam: Present: regular rate, normal rhythm. Absent: systolic murmur, diastolic murmur, rubs, gallop - GI/Abdominal GI/Abdominal exam: Present: soft, normal bowel sounds. Absent: distended, tenderness - Extremities Exam Extremities exam: Present: normal inspection - Back Exam Back exam: Present: normal inspection - Neurological Exam Neurological exam: Present: alert, oriented X3, CN II-XII intact. Absent: motor sensory deficit - Psychiatric Psychiatric exam: Present: normal affect, normal mood - Skin Skin exam: Present: warm, dry, intact, normal color. Absent: rash ED Course Vital Signs 07/18/22 07/18/22 07/18/22 13:17 14:17 14:25 Temperature 99.1 F Pulse Rate 70 86 Respiratory 16 21 Rate Blood Pressure 200/110 Blood Pressure 190/110 198/114 [Left] O2 Sat by Pulse 100 100 100 Oximetry 07/18/22 07/18/22 07/18/22 14:30 14:45 15:00 Temperature Pulse Rate 86 87 86 Respiratory 19 21 15 Rate Blood Pressure 200/110 195/109 195/109 Blood Pressure [Left] O2 Sat by Pulse 100 100 100 Oximetry 07/18/22 07/18/22 07/18/22 15:16 15:30 15:46 Temperature Pulse Rate 82 91 H 91 H Respiratory 19 16 24 Rate Blood Pressure 200/105 213/101 Blood Pressure [Left] O2 Sat by Pulse 100 100 100 Oximetry 07/18/22 07/18/22 07/18/22 16:01 16:15 16:31 Temperature Pulse Rate 80 80 81 Respiratory 14 20 16 Rate Blood Pressure 188/101 190/97 191/99 Blood Pressure [Left] O2 Sat by Pulse 100 100 100 Oximetry 07/18/22 07/18/22 07/18/22 16:45 17:01 17:15 Temperature Pulse Rate 93 H 87 82 Respiratory 22 22 25 H Rate Blood Pressure 183/107 183/91 173/81 Blood Pressure [Left] O2 Sat by Pulse 99 100 100 Oximetry 07/18/22 17:31 Temperature Pulse Rate 70 Respiratory 28 H Rate Blood Pressure 160/79 Blood Pressure [Left] O2 Sat by Pulse 100 Oximetry ED Medical Decision Making - Lab Data Result diagrams: 07/18/22 14:36 07/18/22 14:36 Critical care attestation.: If time is entered above; I have spent that time in minutes in the direct care of this critically ill patient, excluding procedure time. ED Disposition Condition: Stable
[2022-07-18 16:00] LABS: Albumin 4.2 g/dL (3.9-5); Calcium 9.1 mg/dL (8.4-10.2)
[2022-07-18 16:01] LABS: Basophils % (Auto) 0.4 % (0.0-1.8); Eosinophils % (Auto) 0.2 % (0.0-4.3); Hematocrit 27.7 % (30.3-42.9); Lymphocytes # (Auto) 1.5 K/mm3 (1.2-5.4); Lymphocytes % (Auto) 17.3 % (13.4-35.0); Mean Corpuscular HGB Conc 33 % (30-34); Mean Corpuscular Volume 96 fl (79-97); Monocytes # (Auto) 0.9 K/mm3 (0.0-0.8); Monocytes % (Auto) 10.2 % (0.0-7.3); Platelet Count 232 K/mm3 (140-440); Red Blood Count 2.87 M/mm3 (3.65-5.03); Red Cell Distribution Width 18.9 % (13.2-15.2)
[2022-07-18] MEDS ORDERED: hydrALAZINE 20 MG/1 ML INJ IV ONE (16:50)
[2022-07-18 16:55] LABS: INR 1.13 (0.87-1.13)
[2022-07-18 16:56] LABS: Partial Thromboplastin Time 36.7 Sec. (24.2-36.6)
[2022-07-18] MEDS ORDERED: MORPHINE 2 MG/1 ML INJ IV PRN (18:51)
[2022-07-18] MEDS ORDERED: ACETAMINOPHEN 325 MG TAB PO PRN ×2 (18:51→20:59)
[2022-07-18] MEDS ORDERED: ONDANSETRON 4 MG/2 ML INJ IV PRN ×2 (18:51→20:59)
--- NOTE | 2022-07-18 20:07 | History and Physical Report ---
History of Present Illness Date of examination: 07/18/22 Date of admission: 07/18/22 18:51 Chief complaint: Increasing shortness of for 1 day History of present illness: 67-year-old -[place] female with multiple medical problems including atrial fibrillation, end-stage renal disease on hemodialysis, hyperparathyroidism, and diabetes and COPD comes in for increasing shortness of breath on dialysis appointment this morning. She stopped dialysis 30 minutes and record dialysis. Patient also complains of retrosternal chest pain. Patient has multiple admissions for chest pain in the past. Shortness of breath and orthopnea present. No fever or chills. Noncompliance with dialysis is a exacerbating factor. - Past Medical History Previous Medical History?: Yes Hx Hypertension: Yes Hx CVA: Yes (right sided weakness) Hx Heart Attack/AMI: Yes (1 stent) Hx Congestive Heart Failure: Yes Hx Diabetes: Yes Hx GERD: Yes Hx Renal Disease: Yes (REQ DIALYSIS TUE THUR SAT) Hx Sickle Cell Disease: No Hx Kidney Stones: No Hx Psychiatric Treatment: Yes (BIPOLAR/SCHIZOPHRENIA) Hx Asthma: No Hx COPD: Yes (REQ 3L O2 CONTINOUSLY) Hx HIV: No Additional medical history: HIGH CHOLESTEROL - Surgical History Past Surgical History?: Yes Hx Coronary Stent: Yes Hx Pacemaker: Yes Additional Surgical History: stent placement x 2 in 2014, knee surgery 11/2017, ABD SX 2020 - Social History Smoking Status: Never Smoker Substance Use Type: None Review of Systems ROS: Stated complaint: CHEST PAIN Other details as noted in HPI Comment: All other systems reviewed and negative Constitutional: denies: chills, fever Eyes: denies: eye pain, eye discharge, vision change ENT: denies: ear pain, throat pain Respiratory: denies: cough, shortness of breath, wheezing Cardiovascular: chest pain. denies: palpitations Endocrine: no symptoms reported Gastrointestinal: denies: abdominal pain, nausea, diarrhea Genitourinary: denies: urgency, dysuria, discharge Musculoskeletal: denies: back pain, joint swelling, arthralgia Skin: denies: rash, lesions Neurological: denies: headache, weakness, paresthesias Psychiatric: denies: anxiety, depression Hematological/Lymphatic: denies: easy bleeding, easy bruising Medications and Allergies Allergies Allergy/AdvReac Type Severity Reaction Status Date / Time Iodinated Contrast Media AdvReac Intermediate Swelling Verified 07/18/22 19:07 apple AdvReac Hives Verified 07/18/22 19:07 shell fish Allergy Swelling Uncoded 07/18/22 13:38 Home Medications Medication Instructions Recorded Confirmed Last Taken Type Gabapentin 100 mg PO BID 03/02/22 07/19/22 Unknown History Pantoprazole [Protonix TAB] 40 mg PO QDAY 03/02/22 07/19/22 03/02/22 10:00 History methIMAzole [Methimazole] 10 mg PO TID 03/10/22 07/19/22 Unknown History Sennosides/Docusate [Senokot S] 1 tab PO DAILY #30 tablet 03/12/22 07/19/22 Unknown Rx Nitroglycerin [Nitrostat] 0.4 mg SL .Q5MIN PRN 30 Days #30 04/02/22 07/19/22 Unknown Rx tablet Apixaban [Eliquis] 2.5 mg PO Q12HR tablet 05/23/22 07/19/22 Unknown Rx Aspirin EC [Halfprin EC] 81 mg PO QDAY tablet 05/23/22 07/19/22 Unknown Rx ISOSORBIDE MONOnitrate [Imdur ER] 60 mg PO QDAY tablet 05/23/22 07/19/22 Unknown Rx Losartan [Cozaar] 50 mg PO QDAY tablet 05/23/22 07/19/22 Unknown Rx Metoprolol [Lopressor TAB] 100 mg PO BID #60 tablet 05/23/22 07/19/22 Unknown Rx hydrALAZINE [Apresoline TAB] 50 mg PO Q8HR tablet 05/23/22 07/19/22 Unknown Rx Amiodarone [Cordarone 200 MG TAB] 200 mg PO BID 30 Days #60 tablet 07/12/22 07/19/22 Unknown Rx Levalbuterol Tartrate 2 puff INHALATION Q6HR PRN 07/12/22 07/19/22 Unknown History [Levalbuterol Tartrate Hfa] amLODIPine 10 mg PO DAILY 07/12/22 07/19/22 Unknown History carvediloL [Coreg] 25 mg PO BID 07/12/22 07/19/22 Unknown History cloNIDine [Catapres] 0.1 mg PO Q8H 07/12/22 07/19/22 Unknown History Active Meds: Active Medications Acetaminophen (Acetaminophen 325 Mg Tab) 650 mg PO Q4H PRN PRN Reason: Pain MILD(1-3)/Fever >100.5/SILVA Morphine Sulfate (Morphine 2 Mg/1 Ml Inj) 2 mg IV Q4H PRN PRN Reason: Pain, Moderate (4-6) Ondansetron HCl (Ondansetron 4 Mg/2 Ml Inj) 4 mg IV Q8H PRN PRN Reason: Nausea And Vomiting Sodium Chloride (Sodium Chloride 0.9% 10 Ml Flush Syringe) 10 ml IV BID CHRISTEL Sodium Chloride (Sodium Chloride 0.9% 10 Ml Flush Syringe) 10 ml IV PRN PRN PRN Reason: LINE FLUSH Exam - Constitutional Vitals: Temp Pulse Resp BP Pulse Ox 99.1 F 70 20 164/72 100 07/18/22 13:17 07/18/22 19:15 07/18/22 19:15 07/18/22 19:15 07/18/22 19:15 General appearance: Present: no acute distress, mild distress, well-nourished - EENT Eyes: Present: PERRL ENT: hearing intact, clear oral mucosa - Neck Neck: Present: supple, normal ROM - Respiratory Respiratory effort: normal Respiratory: bilateral: CTA - Cardiovascular Heart rate: 78 Rhythm: irregularly irregular Heart Sounds: Present: S1 & S2. Absent: rub, click - Extremities Extremities: no ischemia, pulses intact, pulses symmetrical, No edema Peripheral Pulses: within normal limits - Abdominal General gastrointestinal: Present: soft, non-tender, non-distended, normal bowel sounds Female genitourinary: Present: normal - Integumentary Integumentary: Present: clear, warm, dry - Musculoskeletal Musculoskeletal: gait normal, strength equal bilaterally - Psychiatric Psychiatric: appropriate mood/affect, intact judgment & insight - Neurologic Neurologic: CNII-XII intact, moves all extremities - Allied Health Allied health notes reviewed: nursing, case management HEART Score - HEART Score History: Moderately suspicious Age: > 65 Risk factors: > 3 risk factors or hx of atherosclerotic disease Troponin: Troponin T 0.031 ng/mL (0.00-0.029) H 07/18/22 14:36 Troponin: 1-3x normal limit - Critical Actions Critical Actions: 4-6 pts:12-16.6% risk of adverse cardiac event. Should be admitted Results - Labs CBC & Chem 7: 07/18/22 14:36 07/18/22 14:36 Labs: Laboratory Last Values WBC 8.7 K/mm3 (4.5-11.0) 07/18/22 14:36 RBC 2.87 M/mm3 (3.65-5.03) L 07/18/22 14:36 Hgb 9.0 gm/dl (10.1-14.3) L 07/18/22 14:36 Hct 27.7 % (30.3-42.9) L 07/18/22 14:36 MCV 96 fl (79-97) 07/18/22 14:36 MCH 31 pg (28-32) 07/18/22 14:36 MCHC 33 % (30-34) 07/18/22 14:36 RDW 18.9 % (13.2-15.2) H 07/18/22 14:36 Plt Count 232 K/mm3 (140-440) 07/18/22 14:36 Lymph % (Auto) 17.3 % (13.4-35.0) 07/18/22 14:36 [place] % (Auto) 10.2 % (0.0-7.3) H 07/18/22 14:36 Eos % (Auto) 0.2 % (0.0-4.3) 07/18/22 14:36 Baso % (Auto) 0.4 % (0.0-1.8) 07/18/22 14:36 Lymph # (Auto) 1.5 K/mm3 (1.2-5.4) 07/18/22 14:36 [place] # (Auto) 0.9 K/mm3 (0.0-0.8) H 07/18/22 14:36 Eos # (Auto) 0.0 K/mm3 (0.0-0.4) 07/18/22 14:36 Baso # (Auto) 0.0 K/mm3 (0.0-0.1) 07/18/22 14:36 Seg Neutrophils % 71.9 % (40.0-70.0) H 07/18/22 14:36 Seg Neutrophils # 6.3 K/mm3 (1.8-7.7) 07/18/22 14:36 PT 15.8 Sec. (12.2-14.9) H 07/18/22 14:36 INR 1.13 (0.87-1.13) 07/18/22 14:36 APTT 36.7 Sec. (24.2-36.6) H 07/18/22 14:36 Sodium 142 mmol/L (137-145) 07/18/22 14:36 Potassium 3.6 mmol/L (3.6-5.0) 07/18/22 14:36 Chloride 98.8 mmol/L (98-107) 07/18/22 14:36 Carbon Dioxide 29 mmol/L (22-30) 07/18/22 14:36 Anion Gap 18 mmol/L 07/18/22 14:36 BUN 24 mg/dL (7-17) H 07/18/22 14:36 Creatinine 3.2 mg/dL (0.6-1.2) H 07/18/22 14:36 Estimated GFR 17 ml/min 07/18/22 14:36 BUN/Creatinine Ratio 8 % 07/18/22 14:36 Glucose 81 mg/dL (65-100) 07/18/22 14:36 Calcium 9.1 mg/dL (8.4-10.2) 07/18/22 14:36 Total Bilirubin 0.80 mg/dL (0.1-1.2) 07/18/22 14:36 AST 17 units/L (5-40) 07/18/22 14:36 ALT 12 units/L (7-56) 07/18/22 14:36 Alkaline Phosphatase 77 units/L (35-129) 07/18/22 14:36 Troponin T 0.031 ng/mL (0.00-0.029) H 07/18/22 14:36 Total Protein 6.3 g/dL (6.3-8.2) 07/18/22 14:36 Albumin 4.2 g/dL (3.9-5) 07/18/22 14:36 Albumin/Globulin Ratio 2.0 % 07/18/22 14:36 - Imaging and Cardiology EKG: report reviewed (Atrial fibrillation no acute ST-T wave changes.) Imaging and Cardiology: Chest x-ray Moderate evaluated pulmonary edema which is slightly worsened as compared to prior exam dated 04/10/2020 Assessment and Plan Advance Directives: Yes (Full code) VTE prophylaxis?: Chemical Plan of care discussed with patient/family: Yes - Patient Problems (1) Acute respiratory failure with hypoxia Current Visit: No Status: Acute Plan to address problem: Oxygen supplementation. Secondary to volume overload. (2) Volume overload Current Visit: Yes Status: Acute Plan to address problem: Patient is in volume overload Bilateral rales present Patient needs emergent hemodialysis for increased ultrafiltration (3) Atypical chest pain Current Visit: Yes Status: Acute Plan to address problem: Patient has atypical chest pain Tenderness present. Patient had extensive work-up with Lexiscan being normal and echocardiogram with normal ejection fraction Hence no stress test was requested (4) Coronary artery disease Current Visit: No Status: Chronic Qualifiers: Coronary Disease-Associated Artery/Lesion type: [place] artery [place] vs. transplanted heart: [place] heart Plan to address problem: Continue isosorbide mononitrate and aspirin. (5) End-stage renal disease on hemodialysis Current Visit: No Status: Chronic Plan to address problem: Nephrology consulted for emergent hemodialysis. (6) HTN (hypertension) Current Visit: No Status: Chronic Qualifiers: Hypertension type: primary hypertension Qualified Code(s): I10 - Essential (primary) hypertension Plan to address problem: Continue antihypertensives and adjust medications as (7) Hyperlipidemia Current Visit: No Status: Chronic Qualifiers: Hyperlipidemia type: mixed hyperlipidemia Qualified Code(s): E78.2 - Mixed hyperlipidemia Plan to address problem: Continue statins. (8) Atrial fibrillation Current Visit: Yes Status: Chronic Qualifiers: Atrial fibrillation type: persistent (not longstanding) Qualified Code(s): I48.19 - Other persistent atrial fibrillation; I48.1 - Persistent atrial fibrillation Plan to address problem: On amiodarone and Eliquis. (9) Hyperthyroidism Current Visit: Yes Status: Chronic Plan to address problem: On methimazole. (10) DVT prophylaxis Current Visit: Yes Status: Acute Plan to address problem: On heparin and GI prophylaxis. (11) ACP (advance care planning) Current Visit: Yes Status: Acute Plan to address problem: Disease education conducted, care plan discussed, prognosis discussed. And diagnosis discussed. Patient acknowledged understanding with care plan. +30 minutes.
[2022-07-18] MEDS ORDERED: NITROGLYCERIN 0.4 MG TAB SUBL SL ONE (20:25)
[2022-07-18] MEDS ORDERED: NITROGLYCERIN 0.4 MG TAB SUBL SL PRN (20:49)
[2022-07-18] MEDS ORDERED: LEVALBUTEROL 1.25 MG/3 ML NEB IH PRN (20:49)
[2022-07-18] MEDS ORDERED: METOCLOPRAMIDE 10 MG/2 ML INJ IV PRN (20:59)
[2022-07-18] MEDS ORDERED: oxyCODONE /ACETAMINOPHEN 5-325MG TAB PO PRN (20:59)
[2022-07-19] MEDS: cloNIDine 0.1 MG TAB PO SCH ×3 (00:51→13:13)
[2022-07-19] MEDS: hydrALAZINE 25 MG TAB PO SCH ×3 (00:54→13:13)
[2022-07-19 00:57] LABS: Chol/HDL Ratio 2.11 %
[2022-07-19] MEDS: METOPROLOL TARTRATE 100 MG TAB PO SCH ×2 (00:58→10:50)
[2022-07-19] MEDS: APIXABAN 2.5 MG TAB PO SCH ×2 (01:00→10:51)
[2022-07-19] MEDS: GABAPENTIN 100 MG CAP PO SCH ×2 (01:00→10:50)
[2022-07-19] MEDS: carvediloL 25 MG TAB PO SCH ×2 (01:01→10:50)
[2022-07-19] MEDS: LOSARTAN 50 MG TAB PO SCH ×2 (01:01→10:51)
[2022-07-19] MEDS: SENNOSIDES/DOCUSATE SODIUM 8.6/50 MG TAB PO SCH ×2 (01:01→10:49)
[2022-07-19] MEDS: ASPIRIN EC 81 MG TAB PO SCH ×2 (01:01→10:50)
[2022-07-19] MEDS: AMIODARONE 200 MG TAB PO SCH ×2 (01:01→10:50)
[2022-07-19] MEDS: PANTOPRAZOLE 40 MG TAB PO SCH ×2 (01:01→10:50)
[2022-07-19] MEDS: amLODIPine 10 MG TAB PO SCH ×2 (01:01→10:51)
[2022-07-19] MEDS: methIMAzole 5 MG TAB PO SCH ×2 (08:56→13:13)
--- NOTE | 2022-07-19 09:42 | Consultation ---
History of Present Illness - Reason for Consult Consult date: 07/19/22 end stage renal disease - History of Present Illness The patient is a 67 YO female known to our service with history of DM-2, HTN, HLD, Bipolar Disorder, CAD s/p Stent Placement, Paroxysmal atrial fibrillation, HFpEF, COPD, Anemia and ESRD on hemodialysis (TTS) who presented to [facility] ED 07/18/22 with chest pain and sob while on HD yesterday. She stopped dialysis 30 minutes prior. The pain was sharp, constant and not radiating. Patient has chronic intermittent some shortness of breath and cough. Patient denies any N, V, D, abd pain, dizziness, weakness, fever, chills, rash, blurry vision, hematuria or hemoptysis. She has had several admissions and ER visits with similar presentation and had extensive workup. Patient was admitted for further evaluation. Labs and imaging noted. Nephrology was consulted for ESRD management. Medications and Allergies Allergies Allergy/AdvReac Type Severity Reaction Status Date / Time Iodinated Contrast Media AdvReac Intermediate Swelling Verified 07/18/22 19:07 apple AdvReac Hives Verified 07/18/22 19:07 shell fish Allergy Swelling Uncoded 07/18/22 13:38 Home Medications Medication Instructions Recorded Confirmed Last Taken Type Gabapentin 100 mg PO BID 03/02/22 07/19/22 Unknown History Pantoprazole [Protonix TAB] 40 mg PO QDAY 03/02/22 07/19/22 03/02/22 10:00 History methIMAzole [Methimazole] 10 mg PO TID 03/10/22 07/19/22 Unknown History Sennosides/Docusate [Senokot S] 1 tab PO DAILY #30 tablet 03/12/22 07/19/22 Unknown Rx Nitroglycerin [Nitrostat] 0.4 mg SL .Q5MIN PRN 30 Days #30 04/02/22 07/19/22 Unknown Rx tablet Apixaban [Eliquis] 2.5 mg PO Q12HR tablet 05/23/22 07/19/22 Unknown Rx Aspirin EC [Halfprin EC] 81 mg PO QDAY tablet 05/23/22 07/19/22 Unknown Rx ISOSORBIDE MONOnitrate [Imdur ER] 60 mg PO QDAY tablet 05/23/22 07/19/22 Unknown Rx Losartan [Cozaar] 50 mg PO QDAY tablet 05/23/22 07/19/22 Unknown Rx Metoprolol [Lopressor TAB] 100 mg PO BID #60 tablet 05/23/22 07/19/22 Unknown Rx hydrALAZINE [Apresoline TAB] 50 mg PO Q8HR tablet 05/23/22 07/19/22 Unknown Rx Amiodarone [Cordarone 200 MG TAB] 200 mg PO BID 30 Days #60 tablet 07/12/22 07/19/22 Unknown Rx Levalbuterol Tartrate 2 puff INHALATION Q6HR PRN 07/12/22 07/19/22 Unknown History [Levalbuterol Tartrate Hfa] amLODIPine 10 mg PO DAILY 07/12/22 07/19/22 Unknown History carvediloL [Coreg] 25 mg PO BID 07/12/22 07/19/22 Unknown History cloNIDine [Catapres] 0.1 mg PO Q8H 07/12/22 07/19/22 Unknown History Active Meds: Active Medications Acetaminophen (Acetaminophen 325 Mg Tab) 650 mg PO Q4H PRN PRN Reason: Pain MILD(1-3)/Fever >100.5/SILVA Amiodarone HCl (Amiodarone 200 Mg Tab) 200 mg PO BID [facility] Last Admin: 07/19/22 01:01 Dose: 200 mg Amlodipine Besylate (Amlodipine 10 Mg Tab) 10 mg PO DAILY [facility] Last Admin: 07/19/22 01:01 Dose: 10 mg Apixaban (Apixaban 2.5 Mg Tab) 2.5 mg PO Q12HR [facility] Last Admin: 07/19/22 01:00 Dose: 2.5 mg Aspirin (Aspirin Ec 81 Mg Tab) 81 mg PO QDAY [facility] Last Admin: 07/19/22 01:01 Dose: 81 mg Carvedilol (Carvedilol 25 Mg Tab) 25 mg PO BID [facility] Last Admin: 07/19/22 01:01 Dose: 25 mg Clonidine HCl (Clonidine 0.1 Mg Tab) 0.1 mg PO Q8H [facility] Last Admin: 07/19/22 05:27 Dose: Not Given Gabapentin (Gabapentin 100 Mg Cap) 100 mg PO BID [facility] Last Admin: 07/19/22 01:00 Dose: 100 mg Hydralazine HCl (Hydralazine 25 Mg Tab) 50 mg PO Q8HR [facility] Last Admin: 07/19/22 05:23 Dose: 50 mg Isosorbide Mononitrate (Isosorbide Mononitrate Er 60 Mg Tab) 60 mg PO QDAY [facility] Last Admin: 07/19/22 00:56 Dose: Not Given Levalbuterol HCl (Levalbuterol 1.25 Mg/3 Ml Neb) 1.25 mg IH Q6HRT PRN PRN Reason: wheezing Losartan Potassium (Losartan 50 Mg Tab) 50 mg PO QDAY [facility] Last Admin: 07/19/22 01:01 Dose: 50 mg Methimazole (Methimazole 5 Mg Tab) 10 mg PO TID [facility] Last Admin: 07/19/22 08:56 Dose: 10 mg Metoclopramide HCl (Metoclopramide 10 Mg/2 Ml Inj) 5 mg IV Q8H PRN PRN Reason: Nausea And Vomiting Metoprolol Tartrate (Metoprolol Tartrate 100 Mg Tab) 100 mg PO BID [facility] Last Admin: 07/19/22 00:58 Dose: Not Given Morphine Sulfate (Morphine 2 Mg/1 Ml Inj) 2 mg IV Q4H PRN PRN Reason: Pain, Moderate (4-6) Last Admin: 07/18/22 22:10 Dose: 2 mg Nitroglycerin (Nitroglycerin 0.4 Mg Tab Subl) 0.4 mg SL .Q5MIN PRN PRN Reason: Chest Pain Ondansetron HCl (Ondansetron 4 Mg/2 Ml Inj) 4 mg IV Q8H PRN PRN Reason: Nausea And Vomiting Oxycodone/Acetaminophen (Oxycodone /Acetaminophen 5-325mg Tab) 1 tab PO Q6H PRN PRN Reason: Pain, Moderate (4-6) Last Admin: 07/19/22 05:22 Dose: 1 tab Pantoprazole Sodium (Pantoprazole 40 Mg Tab) 40 mg PO QDAY [facility] Last Admin: 07/19/22 01:01 Dose: 40 mg Senna/Docusate Sodium (Sennosides/Docusate Sodium 8.6/50 Mg Tab) 1 tab PO DAILY [facility] Last Admin: 07/19/22 01:01 Dose: 1 tab Sodium Chloride (Sodium Chloride 0.9% 10 Ml Flush Syringe) 10 ml IV BID [facility] Last Admin: 07/19/22 01:02 Dose: 10 ml Sodium Chloride (Sodium Chloride 0.9% 10 Ml Flush Syringe) 10 ml IV PRN PRN PRN Reason: LINE FLUSH Review of Systems All systems: negative Exam - Vital Signs Vital signs: Vital Signs Temp Pulse Resp BP Pulse Ox 99.1 F 70 16 190/110 100 07/18/22 13:17 07/18/22 13:17 07/18/22 13:17 07/18/22 13:17 07/18/22 13:17 Results - Lab Results 07/18/22 14:36 07/18/22 14:36 Most recent lab results Calcium 9.1 mg/dL (8.4-10.2) 07/18/22 14:36 Assessment and Plan 1. ESRD: Patient is on maintenance hemodialysis, TTS schedule. Hemodialysis: 2. FEN: UF with HD as tolerated. Monitor lytes and volume status. 3. Chest pain // H/o CAD s/p PCI: Seen by Cards. Monitor. 4. Paroxysmal A.flutter with RVR: Continue home meds. Monitor. 5. Chronic HFpEF: Volume control thru HD. Fluid restriction, monitor I/O. 6. H/o COPD: Nebs and O2 as needed. 7. Hypertension: Volume control with HD. Adjust BP meds as needed. Monitor BP. 8. Normochromic anemia, POA: Chronic. Likely 2/2 ESRD. Epogen as needed. Subjective: Patient was seen and examined at the bedside. Examination: General appearance: well-developed, appears stated age, no distress HEENT: atraumatic, ANA Neck: trachea midline Respiratory: slightly coarse breath sounds Heart: S1S2, no murmur Abdomen: soft, bowel sounds heard, NT Integumentary: no obvious rash Neurologic: AO, able to move extremities Ext: no edema Hemodialysis access: R arm AVG
[2022-07-19] MEDS ORDERED: METOCLOPRAMIDE 10 MG/2 ML INJ IV PRN (10:00)
--- NOTE | 2022-07-19 10:53 | Discharge Summary ---
Providers - Providers Date of Admission: 07/18/22 18:51 Date of discharge: 07/19/22 Attending physician: FERNANDO HARVEY MD 07/18/22 20:59 Consult to Physician [CONS] Routine Comment: Consulting Provider: SEBAS DELGADO Physician Instructions: Reason For Exam: Volume overload, Primary care physician: SERINA CALDWELL Hospitalization Reason for admission: Volume overload, ESRD on hemodialysis, atypical chest pain Condition: Stable Pertinent studies: Reviewed. Procedures: None. Hospital course: Patient is a 67-year-old female past medical of ESRD on hemodialysis (TTS), hypertension, coronary artery disease, chronic hypoxic respiratory failure (3 L nasal cannula at baseline) and atrial fibrillation on anticoagulation (apixaban 2.5 mg twice daily) who presented to the ED with complaints of left-sided chest pain presented the night prior to presentation. The patient endorsed showing up to the ED initially believing due to overcrowding. He describes her pain as moderate without chest radiation. The patient also complained of coughing but denies shortness of breath. The patient's last hemodialysis session was 07/16/2022; she missed her session on 07/18/2022 because she was actively being admitted to the hospital. The patient had previously been worked up for chest pain earlier this year, and her myocardial perfusion scan was found to be unremarkable. In the ED, patient was found to be hemodynamically stable with an elevated blood pressure of 190/110. Labs were also remarkable for proBNP of 54,741. Nephrology was consulted for hemodialysis management. Patient was counseled about the importance of salt restriction (utilizing Mrs. Ayala instead) and fluid restriction to approximately 2 L/day. Patient expressed understanding. After hemodialysis, patient will be medically cleared for discharge. Patient expressed understanding. Disposition: HOME / SELF CARE / HOMELESS Final Discharge Diagnosis (Prints w/discharge instructions): Volume overload, ESRD on hemodialysis, chronic hypoxic respiratory failure, atypical chest pain, coronary artery disease, atrial fibrillation on anticoagulation, hypertension, hyperlipidemia, hyperthyroidism Time spent for discharge: 45 min Core Measure Documentation - Palliative Care Palliative Care/ Comfort Measures: Not Applicable - Core Measures Any of the following diagnoses?: none Exam - Constitutional Vitals: Temp Pulse Resp BP Pulse Ox 97.3 F L 76 20 148/77 100 07/19/22 05:17 07/19/22 05:23 07/19/22 05:17 07/19/22 05:23 07/19/22 05:17 General appearance: Present: no acute distress, well-nourished - EENT Eyes: Present: PERRL, EOM intact ENT: hearing intact, clear oral mucosa, dentition normal - Neck Neck: Present: supple, normal ROM - Respiratory Respiratory effort: normal Respiratory: bilateral: diminished (On 3 L nasal cannula (currently at baseline)) - Cardiovascular Rhythm: irregularly irregular Heart Sounds: Present: S1 & S2 - Extremities Extremities: no ischemia, pulses intact, pulses symmetrical, No edema, normal temperature, normal color, Full ROM, abnormal (AV fistula in right upper extremity with palpable thrill) Peripheral Pulses: within normal limits - Abdominal General gastrointestinal: Present: soft, non-tender, non-distended, normal bowel sounds Female genitourinary: Present: deferred - Rectal Rectal Exam: deferred - Integumentary Integumentary: Present: clear, warm, dry - Musculoskeletal Musculoskeletal: strength equal bilaterally - Psychiatric Psychiatric: appropriate mood/affect, intact judgment & insight, memory intact, cooperative - Neurologic Neurologic: CNII-XII intact, moves all extremities - Allied Health Allied health notes reviewed: nursing Plan Activity: no restrictions Diet: low salt, renal Special Instructions: restrict fluid intake to (2 L/day) Additional Instructions: Patient is a 67-year-old female past medical of ESRD on hemodialysis (TTS), hypertension, coronary artery disease, chronic hypoxic respiratory failure (3 L nasal cannula at baseline) and atrial fibrillation on anticoagulation (apixaban 2.5 mg twice daily) who presented to the ED with complaints of left-sided chest pain presented the night prior to presentation. The patient endorsed showing up to the ED initially believing due to overcrowding. He describes her pain as moderate without chest radiation. The patient also complained of coughing but denies shortness of breath. The patient's last hemodialysis session was 07/16/2022; she missed her session on 07/18/2022 because she was actively being admitted to the hospital. The patient had previously been worked up for chest pain earlier this year, and her myocardial perfusion scan was found to be unremarkable. In the ED, patient was found to be hemodynamically stable with an elevated blood pressure of 190/110. Labs were also remarkable for proBNP of 54,741. Nephrology was consulted for hemodialysis management. Patient was counseled about the importance of salt restriction (utilizing Mrs. Ayala instead) and fluid restriction to approximately 2 L/day. Patient expressed understanding. After hemodialysis, patient will be medically cleared for discharge. Patient expressed understanding. Care Plan Goals: Patient is medically cleared for discharge. Assessment: Patient is a 67-year-old female past medical of ESRD on hemodialysis (TTS), hypertension, coronary artery disease, chronic hypoxic respiratory failure (3 L nasal cannula at baseline) and atrial fibrillation on anticoagulation (apixaban 2.5 mg twice daily) who presented to the ED with complaints of left-sided chest pain presented the night prior to presentation. The patient endorsed showing up to the ED initially believing due to overcrowding. He describes her pain as moderate without chest radiation. The patient also complained of coughing but denies shortness of breath. The patient's last hemodialysis session was 07/16/2022; she missed her session on 07/18/2022 because she was actively being admitted to the hospital. The patient had previously been worked up for chest pain earlier this year, and her myocardial perfusion scan was found to be unremarkable. In the ED, patient was found to be hemodynamically stable with an elevated blood pressure of 190/110. Labs were also remarkable for proBNP of 54,741. Nephrology was consulted for hemodialysis management. Patient was counseled about the importance of salt restriction (utilizing Mrs. Ayala instead) and fluid restriction to approximately 2 L/day. Patient expressed understanding. After hemodialysis, patient will be medically cleared for discharge. Patient expressed understanding. Follow up with: SERINA CALDWELL MD [Primary Care Provider] - 3-5 Days
--- NOTE | 2022-07-19 10:55 | Electrocardiograph Report ---
[facility] Test Date: 2022-07-18 Test Time: 14:05:59 Pat Name: TEETEE MARTINEZ Department: Room: A374 1 Gender: F [facility] Director: GISELE : 1955 Requested By: FERNANDO HARVEY Order Number: [id number] Reading MD: Aki Reddy Measurements Intervals [place] Rate: 89 P: 40 NE: 221 QRS: -69 QRSD: 134 T: 99 QT: 403 QTc: 492 Interpretive Statements Ventricular-paced rhythm Compared to ECG 07/17/2022 19:46:17 No significant changes Electronically Signed On 07-19-2022 10:54:31 EDT by Aki Reddy
[2022-07-19 12:12] VITALS: BP 141/73
== END 2022-07-19 17:13 | disposition home or self-care (01) ==
LOC: ED 13:17 → 3A 18:51
PROVIDERS: ADMIT Internal Medicine; ATTEND Student in an Organized Health Care Education/Training Program
DX: J96.01 Acute respiratory failure with hypoxia (principal); E87.70 Fluid overload, unspecified; R07.89 Other chest pain; I25.10 Atherosclerotic heart disease of native coronary artery without angina pectoris; I13.2 Hypertensive heart and chronic kidney disease with heart failure and with stage 5 chronic kidney disease, or end stage renal disease; I50.9 Heart failure, unspecified; N18.6 End stage renal disease; E11.22 Type 2 diabetes mellitus with diabetic chronic kidney disease; J44.9 Chronic obstructive pulmonary disease, unspecified; I48.91 Unspecified atrial fibrillation; K21.9 Gastro-esophageal reflux disease without esophagitis; E78.2 Mixed hyperlipidemia; E78.00 Pure hypercholesterolemia, unspecified; E05.90 Thyrotoxicosis, unspecified without thyrotoxic crisis or storm; F31.9 Bipolar disorder, unspecified; Z99.2 Dependence on renal dialysis; Z86.73 Personal history of transient ischemic attack (TIA), and cerebral infarction without residual deficits; Z95.1 Presence of aortocoronary bypass graft; Z79.899 Other long term (current) drug therapy; Z98.890 Other specified postprocedural states; Z79.82 Long term (current) use of aspirin; Z95.0 Presence of cardiac pacemaker
CPT/HCPCS: 36415; 71045; 80053; 80061; 83880; 84484; 85025; 85610; 85730; 93005; 96374; 96375; 96376; 99285; G0378; J0360; J2270; J2405

== ENCOUNTER 2022-07-25 13:41 | Emergency (ER) | payer MEDICARE ==
[2022-07-25] MEDS ORDERED: fentaNYL 100 MCG/2 ML INJ IV ONE ×3 (14:30→19:52)
[2022-07-25] MEDS ORDERED: ONDANSETRON 4 MG/2 ML INJ IV ONE (14:30)
--- NOTE | 2022-07-25 14:47 | Emergency Department Report ---
HPI - General Chief Complaint: Chest Pain Time Seen by Provider: 07/25/22 14:18 - HPI HPI: Room 17 The patient is a 67-year-old female present with a chief complaint of chest, back and abdominal pain during hemodialysis. Patient has a history end-stage renal disease and states today while at hemodialysis after being dialyzed for approximate 1.5 hours ago pain in her substernal chest, right flank and left upper quadrant. Patient describes the pain as sharp and intermittent in nature. Patient is to some nausea with the onset of the pain but denies vomiting or diaphoresis. Patient currently gives her pain a score of 10/10. Patient was admitted to this hospital approximately 1 week ago for chest pain during hemodialysis and eventually discharged the following day. Patient had a negative myocardial perfusion scan performed January 2022 ED Past Medical Hx - Past Medical History Hx Hypertension: Yes Hx CVA: Yes (right sided weakness) Hx Heart Attack/AMI: Yes (1 stent) Hx Congestive Heart Failure: Yes Hx Diabetes: Yes Hx GERD: Yes Hx Renal Disease: Yes (REQ DIALYSIS TUE THUR SAT) Hx Psychiatric Treatment: Yes (BIPOLAR/SCHIZOPHRENIA) Hx COPD: Yes (REQ 3L O2 CONTINOUSLY) Additional medical history: HIGH CHOLESTEROL - Surgical History Hx Coronary Stent: Yes Hx Pacemaker: Yes Additional Surgical History: stent placement x 2 in 2014, knee surgery 11/2017, ABD SX 2020 - Family History Family history: no significant - Social History Smoking Status: Current Every Day Smoker Substance Use Type: None - Medications Home Medications: Home Medications Medication Instructions Recorded Confirmed Last Taken Type Gabapentin 100 mg PO BID 03/02/22 07/19/22 Unknown History Pantoprazole [Protonix TAB] 40 mg PO QDAY 03/02/22 07/19/22 03/02/22 10:00 History methIMAzole [Methimazole] 10 mg PO TID 03/10/22 07/19/22 Unknown History Sennosides/Docusate [Senokot S] 1 tab PO DAILY #30 tablet 03/12/22 07/19/22 Unknown Rx Nitroglycerin [Nitrostat] 0.4 mg SL .Q5MIN PRN 30 Days #30 04/02/22 07/19/22 Unknown Rx tablet Apixaban [Eliquis] 2.5 mg PO Q12HR tablet 05/23/22 07/19/22 Unknown Rx Aspirin EC [Halfprin EC] 81 mg PO QDAY tablet 05/23/22 07/19/22 Unknown Rx ISOSORBIDE MONOnitrate [Imdur ER] 60 mg PO QDAY tablet 05/23/22 07/19/22 Unknown Rx Losartan [Cozaar] 50 mg PO QDAY tablet 05/23/22 07/19/22 Unknown Rx Metoprolol [Lopressor TAB] 100 mg PO BID #60 tablet 05/23/22 07/19/22 Unknown Rx hydrALAZINE [Apresoline TAB] 50 mg PO Q8HR tablet 05/23/22 07/19/22 Unknown Rx Amiodarone [Cordarone 200 MG TAB] 200 mg PO BID 30 Days #60 tablet 07/12/22 07/19/22 Unknown Rx Levalbuterol Tartrate 2 puff INHALATION Q6HR PRN 07/12/22 07/19/22 Unknown History [Levalbuterol Tartrate Hfa] amLODIPine 10 mg PO DAILY 07/12/22 07/19/22 Unknown History carvediloL [Coreg] 25 mg PO BID 07/12/22 07/19/22 Unknown History cloNIDine [Catapres] 0.1 mg PO Q8H 07/12/22 07/19/22 Unknown History HYDROcodone/APAP 5-325 [[place] 1 - 2 each PO Q6HR PRN #10 tablet 07/25/22 Unknown Rx 5/325] ED Review of Systems ROS: Stated complaint: CHEST PAIN Other details as noted in HPI Constitutional: no symptoms reported Eyes: denies: eye pain ENT: denies: throat pain Respiratory: denies: wheezing Cardiovascular: chest pain Endocrine: no symptoms reported Gastrointestinal: abdominal pain, nausea Musculoskeletal: back pain Neurological: denies: headache Physical Exam - Physical Exam Vital Signs: Vital Signs 07/25/22 13:53 Pulse Rate 70 Respiratory 18 Rate Blood Pressure 138/81 [Left] O2 Sat by Pulse 99 Oximetry Physical Exam: GENERAL: The patient is well-developed well-nourished female lying on stretcher not appearing to be in acute distress. [] HEENT: Normocephalic. Atraumatic. Extraocular motions are intact. Patient has moist mucous membranes. NECK: Supple. Trachea midline CHEST/LUNGS: Clear to auscultation. There is no respiratory distress noted. HEART/CARDIOVASCULAR: Regular. There is no tachycardia. There is no gallop rub or murmur. ABDOMEN: Abdomen is soft, nontender. Patient has normal bowel sounds. There is no abdominal distention. SKIN: There is no rash. There is no edema. There is no diaphoresis. NEURO: The patient is awake, alert, and oriented. The patient is cooperative. The patient has no focal neurologic deficits. The patient has normal speech. GCS 15 MUSCULOSKELETAL:There is no evidence of acute injury. ED Course Vital Signs 07/25/22 13:53 Pulse Rate 70 Respiratory 18 Rate Blood Pressure 138/81 [Left] O2 Sat by Pulse 99 Oximetry - Consultations Consultation #1: 07/25/22 20:16 Case discussed with gerontology aide Dr. Guzmán- states it does not sound like ACS. A VQ scan is negative may have patient follow-up with gerontology aide as an outpatient - EJ/Peripheral Line Neck L Time Out Performed: Yes Indications: nurses unable to establis Skin Cleansed in Sterile Fashion: Yes Size: 20 Dressing Placed: Tegaderm Patient Tolerated Procedure: well, no complications ED Medical Decision Making - Lab Data Result diagrams: 07/25/22 15:00 07/25/22 15:00 Laboratory Tests 07/25/22 07/25/22 07/25/22 15:00 15:00 18:13 WBC 10.2 RBC 2.88 L Hgb 9.0 L Hct 27.5 L MCV 96 MCH 31 MCHC 33 RDW 18.7 H Plt Count 223 Lymph % (Auto) 18.4 [place] % (Auto) 11.5 H Eos % (Auto) 0.5 Baso % (Auto) 0.7 Lymph # (Auto) 1.9 [place] # (Auto) 1.2 H Eos # (Auto) 0.1 Baso # (Auto) 0.1 Seg Neutrophils % 68.9 Seg Neutrophils # 7.0 Sodium 139 Potassium 3.3 L Chloride 98.3 Carbon Dioxide 28 Anion Gap 16 BUN 14 Creatinine 2.3 H Estimated GFR 26 BUN/Creatinine Ratio 6 Glucose 76 Calcium 9.2 Total Bilirubin 1.00 AST 15 ALT 7 Alkaline Phosphatase 64 Total Creatine Kinase 39 CK-MB (CK-2) 2.1 CK-MB (CK-2) Rel Index 5.3 H Troponin T 0.043 H 0.049 H Total Protein 5.7 L Albumin 3.7 L Albumin/Globulin Ratio 1.9 Lipase 14 - EKG Data -: EKG Interpreted by Me EKG shows normal: sinus rhythm Rate: normal - EKG Data When compared to previous EKG there are: no significant change Interpretation: unchanged when compared t (07/12/2022) - Radiology Data Radiology results: report reviewed (Chest x-ray, CT abdomen pelvis), image reviewed (Chest x-ray, CT abdomen pelvis, VQ scan) [facility] [address] [place] [address] Cat Scan Report Signed Patient: TEETEE MARTINEZ MR#: [id number] : 1955 Acct:[id number] Age/Sex: 67 / F ADM Date: 07/25/22 Loc: ED Attending Dr: Ordering Physician: MARLA BARRY MD Date of Service: 07/25/22 Procedure(s): CT abdomen pelvis wo con Accession Number(s): [id number] cc: MARLA BARRY MD CT ABDOMEN AND PELVIS WITHOUT CONTRAST INDICATION / CLINICAL INFORMATION: LUQ pain, right flank pain. TECHNIQUE: Axial CT images were obtained through the abdomen and pelvis without IV contrast. All CT scans at this location are performed using CT dose reduction for ALARA by means of automated exposure control. COMPARISON: CT dated 04/28/2020 FINDINGS: Exam is degraded secondary to patient's inability to raise arms. LOWER CHEST: Cardiomegaly and small pericardial effusion. Partially imaged cardiac device leads. Small right pleural effusion. Bibasilar atelectasis. LIVER: No significant abnormality. GALLBLADDER: No significant abnormality. BILE DUCTS: No significant abnormality. PANCREAS: No significant abnormality. SPLEEN: No significant abnormality. ADRENALS: Similar adenomatous hyperplasia of the adrenal glands. RIGHT KIDNEY / URETER: Renal cysts. Additional smaller hypoattenuating lesions are poorly evaluated and indeterminate. A few lesions are intrinsically hyperattenuating, likely hemorrhagic/proteinaceous cyst. LEFT KIDNEY / URETER: Renal cysts. Additional smaller hypoattenuating lesions are poorly evaluated and indeterminate. A few lesions are intrinsically hyperattenuating, likely hemorrhagic/proteinaceous cyst. Nonobstructing interpolar calculus. STOMACH / SMALL BOWEL: No significant abnormality. COLON: Diverticulosis without acute inflammation. APPENDIX: No significant abnormality. PERITONEUM: Trace free fluid in the pelvis. Mild mesenteric congestion. No free air. No fluid collection. LYMPH NODES: No significant adenopathy. AORTA / ARTERIES: Moderate atherosclerotic calcification without acute abnormality. IVC / VEINS: No significant abnormality. URINARY BLADDER: No significant abnormality. REPRODUCTIVE ORGANS: No significant abnormality. ADDITIONAL FINDINGS: None. SKELETAL SYSTEM: No significant abnormality. IMPRESSION: 1. No acute abnormality in the abdomen or pelvis. 2. Cardiomegaly with small pericardial effusion, small right pleural effusion, and mild pulmonary edema. Signer Name: Nydia Bradford MD Signed: 07/25/2022 3:58 PM Workstation Name: [id number] Transcribed By: BLANCA Dictated By: NYDIA BRADFORD MD Electronically Authenticated By: NYDIA BRADFORD MD Signed Date/Time: 07/25/22 1558 DD/ 155 TD/TT: [address] [address] XRay Report Signed Patient: TEETEE MARTINEZ MR#: [id number] : 1955 Acct:[id number] Age/Sex: 67 / F ADM Date: 07/25/22 Loc: ED Attending Dr: Ordering Physician: MARLA BARRY MD Date of Service: 07/25/22 Procedure(s): XR chest 1V ap Accession Number(s): [id number] cc: MARLA BARRY MD Fluoro Time In Minutes: CHEST 1 VIEW 07/25/2022 2:35 PM INDICATION / CLINICAL INFORMATION: chest pain. COMPARISON: 07/18/2022 FINDINGS: SUPPORT DEVICES: Unchanged. HEART / MEDIASTINUM: Stable cardiomegaly. LUNGS / PLEURA: Interstitial prominence and pulmonary basilar congestion have improved since the prior exam. No pneumothorax. ADDITIONAL FINDINGS: No significant additional findings. IMPRESSION: 1. Improved pulmonary edema without new abnormality. Signer Name: Nydia Bradford MD Signed: 07/25/2022 2:48 PM Workstation Name: [id number] Transcribed By: BLANCA Dictated By: NYDIA BRADFORD MD Electronically Authenticated By: NYDIA BRADFORD MD Signed Date/Time: 07/25/22 1448 DD/ 46 TD/TT: [address] [address] Nuclear Medicine Report Signed Patient: TEETEE MARTINEZ MR#: [id number] : 1955 Acct:[id number] Age/Sex: 67 / F ADM Date: 07/25/22 Loc: ED Attending Dr: Ordering Physician: MARLA BARRY MD Date of Service: 07/25/22 Procedure(s): NM perfusion only lung scan Accession Number(s): [id number] cc: MARLA BARRY MD Nuclear medicine pulmonary perfusion scan INDICATION: Chest pain with dyspnea COMPARISON: Chest radiograph performed 07/25/2022 TECHNIQUE: A total of 5.5 mCi technetium 99 MAA injected IV per protocol. FINDINGS: No large perfusion abnormalities identified within either lung. IMPRESSION: No large perfusion abnormality identified. Evidence of mild cardiomegaly noted Signer Name: Simon Bergman MD Signed: 07/25/2022 8:56 PM Workstation Name: [id number] Transcribed By: Dictated By: Simon Bergman MD Electronically Authenticated By: Simon Bergman MD Signed Date/Time: 07/25/222055 DD/ 52 TD/TT: - Differential Diagnosis ACS, gastritis, peptic ulcer disease, Critical care attestation.: If time is entered above; I have spent that time in minutes in the direct care of this critically ill patient, excluding procedure time. ED Disposition Clinical Impression: Atypical chest pain Disposition: 01 HOME / SELF CARE / HOMELESS Is pt being admited?: No Does the pt Need Aspirin: No Condition: Stable Instructions: Nonspecific Chest Pain, Adult, Pain Without a Known Cause Additional Instructions: Return to the emergency department should you develop worsening symptoms, inability to tolerate food or liquids, high fever or any other concerns Prescriptions: HYDROcodone/APAP 5-325 [[place] 5/325] 1 - 2 each PO Q6HR PRN #10 tablet PRN Reason: Pain Referrals: DEV BROWN MD [Staff Physician] - 3-5 Days (Dr Brown is your gerontology aide. Please follow-up with him for further evaluation) Time of Disposition: 21:06 Heart Score - HEART Score History: Slightly suspicious EKG: Normal Age: > 65 Risk factors: 1-2 risk factors Troponin: < normal limit (Renal failure) HEART Score: 3 - EKG Read Time Time EKG Completed: 20:03 EKG Read Time: 20:17
--- NOTE | 2022-07-25 14:52 | XRay Report ---
CHEST 1 VIEW 07/25/2022 2:35 PM INDICATION / CLINICAL INFORMATION: chest pain. COMPARISON: 07/18/2022 FINDINGS: SUPPORT DEVICES: Unchanged. HEART / MEDIASTINUM: Stable cardiomegaly. LUNGS / PLEURA: Interstitial prominence and pulmonary basilar congestion have improved since the prio r exam. No pneumothorax. ADDITIONAL FINDINGS: No significant additional findings. IMPRESSION: 1. Improved pulmonary edema without new abnormality. Signer Name: Nirav Goldman MD Signed: 07/25/2022 2:48 PM Workstation Name: [id number]
[2022-07-25 15:20] LABS: Basophils # (Auto) 0.1 K/mm3 (0.0-0.1); Basophils % (Auto) 0.7 % (0.0-1.8); Eosinophils # (Auto) 0.1 K/mm3 (0.0-0.4); Eosinophils % (Auto) 0.5 % (0.0-4.3); Hematocrit 27.5 % (30.3-42.9); Lymphocytes # (Auto) 1.9 K/mm3 (1.2-5.4); Lymphocytes % (Auto) 18.4 % (13.4-35.0); Mean Corpuscular HGB Conc 33 % (30-34); Mean Corpuscular Volume 96 fl (79-97); Monocytes # (Auto) 1.2 K/mm3 (0.0-0.8); Monocytes % (Auto) 11.5 % (0.0-7.3); Platelet Count 223 K/mm3 (140-440); Red Blood Count 2.88 M/mm3 (3.65-5.03); Red Cell Distribution Width 18.7 % (13.2-15.2)
[2022-07-25 15:41] LABS: Creatine Kinase MB 2.1 ng/mL (0.0-4.0)
[2022-07-25 15:45] LABS: Albumin 3.7 g/dL (3.9-5); Calcium 9.2 mg/dL (8.4-10.2)
--- NOTE | 2022-07-25 16:03 | Cat Scan Report ---
CT ABDOMEN AND PELVIS WITHOUT CONTRAST INDICATION / CLINICAL INFORMATION: LUQ pain, right flank pain. TECHNIQUE: Axial CT images were obtained through the abdomen and pelvis without IV contrast. All CT scans at this location are performed using CT dose reduction for ALARA by means of automated exposure control. COMPARISON: CT dated 04/28/2020 FINDINGS: Exam is degraded secondary to patient's inability to raise arms. LOWER CHEST: Cardiomegaly and small pericardial effusion. Partially imaged cardiac device leads. Smal l right pleural effusion. Bibasilar atelectasis. LIVER: No significant abnormality. GALLBLADDER: No significant abnormality. BILE DUCTS: No significant abnormality. PANCREAS: No significant abnormality. SPLEEN: No significant abnormality. ADRENALS: Similar adenomatous hyperplasia of the adrenal glands. RIGHT KIDNEY / URETER: Renal cysts. Additional smaller hypoattenuating lesions are poorly evaluated a nd indeterminate. A few lesions are intrinsically hyperattenuating, likely hemorrhagic/proteinaceous cyst. LEFT KIDNEY / URETER: Renal cysts. Additional smaller hypoattenuating lesions are poorly evaluated an d indeterminate. A few lesions are intrinsically hyperattenuating, likely hemorrhagic/proteinaceous c yst. Nonobstructing interpolar calculus. STOMACH / SMALL BOWEL: No significant abnormality. COLON: Diverticulosis without acute inflammation. APPENDIX: No significant abnormality. PERITONEUM: Trace free fluid in the pelvis. Mild mesenteric congestion. No free air. No fluid collect ion. LYMPH NODES: No significant adenopathy. AORTA / ARTERIES: Moderate atherosclerotic calcification without acute abnormality. IVC / VEINS: No significant abnormality. URINARY BLADDER: No significant abnormality. REPRODUCTIVE ORGANS: No significant abnormality. ADDITIONAL FINDINGS: None. SKELETAL SYSTEM: No significant abnormality. IMPRESSION: 1. No acute abnormality in the abdomen or pelvis. 2. Cardiomegaly with small pericardial effusion, small right pleural effusion, and mild pulmonary treva ma. Signer Name: Nirav Goldman MD Signed: 07/25/2022 3:58 PM Workstation Name: [email or web address]
[2022-07-25] MEDS ORDERED: ONDANSETRON 4 MG/2 ML INJ ONE (18:19)
[2022-07-25] MEDS ORDERED: fentaNYL 100 MCG/2 ML INJ ONE (18:20)
[2022-07-25] MEDS ORDERED: cloNIDine 0.2 MG TAB PO ONE (19:04)
--- NOTE | 2022-07-25 21:00 | Nuclear Medicine Report ---
Nuclear medicine pulmonary perfusion scan INDICATION: Chest pain with dyspnea COMPARISON: Chest radiograph performed 07/25/2022 TECHNIQUE: A total of 5.5 mCi technetium 99 MAA injected IV per protocol. FINDINGS: No large perfusion abnormalities identified within either lung. IMPRESSION: No large perfusion abnormality identified. Evidence of mild cardiomegaly noted Signer Name: Simon Bergman MD Signed: 07/25/2022 8:56 PM Workstation Name: [employer]
[2022-07-25] MEDS ORDERED: cloNIDine 0.1 MG TAB PO ONE (21:43)
[2022-07-25 22:41] VITALS: BP 166/73
--- NOTE | 2022-07-26 13:23 | Electrocardiograph Report ---
[facility] Test Date: 2022-07-25 Test Time: 20:03:20 Pat Name: TEETEE MARTINEZ Department: Room: Gender: F [employer]: SAMUEL : 1955 Requested By: MARLA BARRY Order Number: [id number] Reading MD: Isis Steele Measurements Intervals [place] Rate: 70 P: PA: QRS: 245 QRSD: 129 T: 75 QT: 468 QTc: 505 Interpretive Statements Afib/flutter and ventricular-paced rhythm Compared to ECG 07/18/2022 14:05:59 No significant changes Electronically Signed On 07-26-2022 13:23:38 EDT by Isis Steele
== END 2022-07-25 22:40 | disposition home or self-care (01) ==
LOC: ED 13:41
DX: R07.89 Other chest pain (principal); I10 Essential (primary) hypertension; F17.200 Nicotine dependence, unspecified, uncomplicated; F31.9 Bipolar disorder, unspecified
CPT/HCPCS: 36415; 36569; 71045; 74176; 78580; 80053; 82550; 82553; 83690; 84484; 85025; 93005; 96374; 96375; 96376; 99285; A9540; J2405; J3010

== ENCOUNTER 2022-07-29 16:42 | Inpatient (IN) | payer MEDICARE ==
[2022-07-29] MEDS ORDERED: MORPHINE 2 MG/1 ML INJ IV ONE ×2 (17:51→20:19)
--- NOTE | 2022-07-29 17:53 | Emergency Department Report ---
ED Chest Pain HPI - General Chief Complaint: Chest Pain Stated Complaint: CHEST PAIN Time Seen by Provider: 07/29/22 17:27 Source: patient, EMS Mode of arrival: Stretcher Limitations: No Limitations - History of Present Illness Initial Comments: 67-year-old female with history of end-stage renal disease (dialysis dependent), atrial fibrillation, COPD and bipolar disorder presents to the emergency department with severe substernal chest pressure which started just prior to arrival. Patient denies shortness of breath, nausea, dizziness, or diaphoresis. Patient denies any other symptoms. Patient has been seen here several times for the same complaints, the last time being 07/25/2022. Patient was discharged from the emergency department on that day, but was admitted on 07/18/2022. Denies alleviating factors. Patient was not able to take. Medication prior to arrival. Severity scale (0 -10): 4 - Related Data Home Medications Medication Instructions Recorded Confirmed Last Taken Gabapentin 100 mg PO BID 03/02/22 07/19/22 Unknown Pantoprazole [Protonix TAB] 40 mg PO QDAY 03/02/22 07/19/22 03/02/22 10:00 methIMAzole [Methimazole] 10 mg PO TID 03/10/22 07/19/22 Unknown Levalbuterol Tartrate 2 puff INHALATION Q6HR PRN 07/12/22 07/19/22 Unknown [Levalbuterol Tartrate Hfa] amLODIPine 10 mg PO DAILY 07/12/22 07/19/22 Unknown carvediloL [Coreg] 25 mg PO BID 07/12/22 07/19/22 Unknown cloNIDine [Catapres] 0.1 mg PO Q8H 07/12/22 07/19/22 Unknown Previous Rx's Medication Instructions Recorded Last Taken Type Sennosides/Docusate [Senokot S] 1 tab PO DAILY #30 tablet 03/12/22 Unknown Rx Nitroglycerin [Nitrostat] 0.4 mg SL .Q5MIN PRN 30 Days #30 04/02/22 Unknown Rx tablet Apixaban [Eliquis] 2.5 mg PO Q12HR tablet 05/23/22 Unknown Rx Aspirin EC [Halfprin EC] 81 mg PO QDAY tablet 05/23/22 Unknown Rx ISOSORBIDE MONOnitrate [Imdur ER] 60 mg PO QDAY tablet 05/23/22 Unknown Rx Losartan [Cozaar] 50 mg PO QDAY tablet 05/23/22 Unknown Rx Metoprolol [Lopressor TAB] 100 mg PO BID #60 tablet 05/23/22 Unknown Rx hydrALAZINE [Apresoline TAB] 50 mg PO Q8HR tablet 05/23/22 Unknown Rx Amiodarone [Cordarone 200 MG TAB] 200 mg PO BID 30 Days #60 tablet 07/12/22 Unknown Rx HYDROcodone/APAP 5-325 [[place] 1 - 2 each PO Q6HR PRN #10 tablet 07/25/22 Unknown Rx 5/325] Allergies Allergy/AdvReac Type Severity Reaction Status Date / Time Iodinated Contrast Media AdvReac Intermediate Swelling Verified 07/29/22 16:56 apple AdvReac Hives Verified 07/29/22 16:56 shell fish Allergy Swelling Uncoded 07/29/22 16:56 Heart Score - HEART Score History: Moderately suspicious EKG: Non-specific Age: > 65 Risk factors: > 3 risk factors or hx of atherosclerotic disease Troponin: 1-3x normal limit HEART Score: 7 - EKG Read Time Time EKG Completed: 17:35 EKG Read Time: 17:41 ED Review of Systems ROS: Stated complaint: CHEST PAIN Other details as noted in HPI Comment: All other systems reviewed and negative Constitutional: denies: chills, diaphoresis, fever, weakness Eyes: denies: eye pain, eye discharge, vision change ENT: denies: ear pain, throat pain Respiratory: denies: cough, shortness of breath, SOB with exertion, wheezing Cardiovascular: chest pain. denies: palpitations Endocrine: no symptoms reported Gastrointestinal: denies: abdominal pain, nausea, diarrhea Musculoskeletal: denies: back pain, joint swelling, arthralgia Skin: denies: rash, lesions Neurological: denies: headache, weakness, paresthesias Psychiatric: denies: anxiety, depression Hematological/Lymphatic: denies: easy bleeding, easy bruising ED Past Medical Hx - Past Medical History Hx Hypertension: Yes Hx CVA: Yes (right sided weakness) Hx Heart Attack/AMI: Yes (1 stent) Hx Congestive Heart Failure: Yes Hx Diabetes: Yes Hx GERD: Yes Hx Renal Disease: Yes (REQ DIALYSIS TUE THUR SAT) Hx Sickle Cell Disease: No Hx Kidney Stones: No Hx Psychiatric Treatment: Yes (BIPOLAR/SCHIZOPHRENIA) Hx Asthma: No Hx COPD: Yes (REQ 3L O2 CONTINOUSLY) Hx HIV: No Additional medical history: HIGH CHOLESTEROL - Surgical History Hx Coronary Stent: Yes Hx Pacemaker: Yes Additional Surgical History: stent placement x 2 in 2014, knee surgery 11/2017, ABD SX 2020 - Social History Smoking Status: Current Every Day Smoker Substance Use Type: None - Medications Home Medications: Home Medications Medication Instructions Recorded Confirmed Last Taken Type Gabapentin 100 mg PO BID 03/02/22 07/19/22 Unknown History Pantoprazole [Protonix TAB] 40 mg PO QDAY 03/02/22 07/19/22 03/02/22 10:00 History methIMAzole [Methimazole] 10 mg PO TID 03/10/22 07/19/22 Unknown History Sennosides/Docusate [Senokot S] 1 tab PO DAILY #30 tablet 03/12/22 07/19/22 Unknown Rx Nitroglycerin [Nitrostat] 0.4 mg SL .Q5MIN PRN 30 Days #30 04/02/22 07/19/22 Unknown Rx tablet Apixaban [Eliquis] 2.5 mg PO Q12HR tablet 05/23/22 07/19/22 Unknown Rx Aspirin EC [Halfprin EC] 81 mg PO QDAY tablet 05/23/22 07/19/22 Unknown Rx ISOSORBIDE MONOnitrate [Imdur ER] 60 mg PO QDAY tablet 05/23/22 07/19/22 Unknown Rx Losartan [Cozaar] 50 mg PO QDAY tablet 05/23/22 07/19/22 Unknown Rx Metoprolol [Lopressor TAB] 100 mg PO BID #60 tablet 05/23/22 07/19/22 Unknown Rx hydrALAZINE [Apresoline TAB] 50 mg PO Q8HR tablet 05/23/22 07/19/22 Unknown Rx Amiodarone [Cordarone 200 MG TAB] 200 mg PO BID 30 Days #60 tablet 07/12/22 07/19/22 Unknown Rx Levalbuterol Tartrate 2 puff INHALATION Q6HR PRN 07/12/22 07/19/22 Unknown History [Levalbuterol Tartrate Hfa] amLODIPine 10 mg PO DAILY 07/12/22 07/19/22 Unknown History carvediloL [Coreg] 25 mg PO BID 07/12/22 07/19/22 Unknown History cloNIDine [Catapres] 0.1 mg PO Q8H 07/12/22 07/19/22 Unknown History HYDROcodone/APAP 5-325 [[place] 1 - 2 each PO Q6HR PRN #10 tablet 07/25/22 Unknown Rx 5/325] ED Physical Exam - General Limitations: No Limitations General appearance: alert, in no apparent distress, other (Appears uncomfortable) - Head Head exam: Present: atraumatic, normocephalic - Eye Eye exam: Present: normal appearance, PERRL, EOMI - ENT ENT exam: Present: mucous membranes moist - Neck Neck exam: Present: normal inspection - Respiratory Respiratory exam: Present: normal lung sounds bilaterally, chest wall tenderness. Absent: respiratory distress, wheezes, rales - Cardiovascular Cardiovascular Exam: Present: regular rate, normal rhythm, other (Pacemaker in place, right upper extremity AV graft with bruits). Absent: systolic murmur, diastolic murmur, rubs, gallop - GI/Abdominal GI/Abdominal exam: Present: soft, normal bowel sounds. Absent: distended, tenderness - Extremities Exam Extremities exam: Present: normal inspection, full ROM, other (No evidence of DVT). Absent: tenderness, calf tenderness - Back Exam Back exam: Present: normal inspection - Neurological Exam Neurological exam: Present: alert, oriented X3, CN II-XII intact, other (Mild right-sided weakness which is chronic) - Psychiatric Psychiatric exam: Present: normal affect, normal mood, anxious - Skin Skin exam: Present: warm, dry, intact, normal color. Absent: rash ED Course Vital Signs 07/29/22 07/29/22 16:43 19:59 Temperature 98.6 F 98.0 F Pulse Rate 89 70 Respiratory 18 15 Rate Blood Pressure 206/104 203/98 [Left] O2 Sat by Pulse 100 100 Oximetry - Reevaluation(s) Reevaluation #1: 07/29/22 19:39 Minutes patient had a ventilation/perfusion scan on 915, which was read as negative for pulmonary embolism, I discontinued the order for D-dimer and coags. Reevaluation #2: 07/29/22 20:54 Case was discussed with Dr. Michelle (Cardiology) recommends admission, and trending of troponins. Believes chest pain may be due to elevated blood pressure and recommends optimizing blood pressure. 07/29/22 21:30 BLAS score - Blas Score Age > 65: (1) Yes Aspirin use within the Past 7 Days: (0) No 3 or more CAD Risk Factors: (1) Yes 2 or more Angina events in past 24 hrs: (1) Yes Known CAD with more than 50% Stenosis: (1) Yes Elevated Cardiac Markers: (0) No ST Deviation Greater than 0.5mm: (0) No BLAS Score: 4 ED Medical Decision Making - Lab Data Result diagrams: 07/29/22 17:58 07/29/22 17:58 - EKG Data When compared to previous EKG there are: changes noted Interpretation: other 07/29/22 21:11 ventricular paced at [address] elevation in v3 (this is new from previous ekg's) - Radiology Data Radiology results: report reviewed cxr IMPRESSION: 1. Mild interstitial edema, likely secondary to mild acute on chronic CHF. Signer Name: Franklin Perkins MD - Medical Decision Making This is a 67-year-old female with multiple medical problems including hypertension, diabetes, COPD, and end-stage renal disease who presents to the emergency department with cute onset of substernal chest pain, which she has been evaluated for many times in this emergency department. Patient's vital signs were initially concerning for hypertension and some chest wall tenderness. EKG is ventricular paced at [address] elevation in V3 which is different than previous EKGs, but no reciprocal changes or any other lead involvement. Diagnosis ACS, malingering, hypertensive emergency, as she recently had a ventilation/perfusion scan which was negative and she is on apixaban. Is her diagnosis she does not have widened Mediastinum on chest x-ray, however she is unable to really see a CT scan with IV contrast as she is allergic to media. Patient's troponin was 0.922 in the emergency department, today, which is double her baseline. Case was discussed with cardiology, who recommends that patient be admitted normalization of her blood pressure for ACS or Hypertensive Emergency. Patient got improvement of pain with morphine, and is amenable to being admitted to the hospital. Patient care is now being transferred to the hospitalist Dr. Ortiz. Critical care attestation.: If time is entered above; I have spent that time in minutes in the direct care of this critically ill patient, excluding procedure time. ED Disposition Clinical Impression: Elevated troponin Chest pain Qualifiers: Chest pain type: unspecified Qualified Code(s): R07.9 - Chest pain, unspecified Disposition: 09 ADMITTED INPATIENT Is pt being admited?: Yes Does the pt Need Aspirin: No Condition: Stable Instructions: Nonspecific Chest Pain, Adult Time of Disposition: 21:29
--- NOTE | 2022-07-29 18:28 | XRay Report ---
CHEST 1 VIEW 07/29/2022 5:54 PM INDICATION / CLINICAL INFORMATION: Chest Pain. COMPARISON: 07/25/2022 FINDINGS: SUPPORT DEVICES: Stable left pectoral transvenous pacemaker. HEART / MEDIASTINUM: Stable cardiomegaly. LUNGS / PLEURA: Mildly increased central pulmonary venous congestion and interstitial thickening most consistent with mild interstitial edema associated with CHF. No pneumothorax. ADDITIONAL FINDINGS: None IMPRESSION: 1. Mild interstitial edema, likely secondary to mild acute on chronic CHF. Signer Name: Franklin Perkins MD Signed: 07/29/2022 6:24 PM Workstation Name: [id number]
[2022-07-29 18:34] LABS: Albumin 4.4 g/dL (3.9-5); Calcium 9.8 mg/dL (8.4-10.2)
[2022-07-29] MEDS ORDERED: MORPHINE 4 MG/1 ML INJ IM ONE (18:47)
[2022-07-29 19:06] LABS: Basophils # (Auto) 0.1 K/mm3 (0.0-0.1); Basophils % (Auto) 0.8 % (0.0-1.8); Eosinophils % (Auto) 0.2 % (0.0-4.3); Hematocrit 31.5 % (30.3-42.9); Hemoglobin 9.9 gm/dl (10.1-14.3); Lymphocytes # (Auto) 2.1 K/mm3 (1.2-5.4); Lymphocytes % (Auto) 13.7 % (13.4-35.0); Mean Corpuscular HGB Conc 32 % (30-34); Mean Corpuscular Volume 98 fl (79-97); Monocytes # (Auto) 1.3 K/mm3 (0.0-0.8); Monocytes % (Auto) 8.6 % (0.0-7.3); Platelet Count 237 K/mm3 (140-440); Red Blood Count 3.23 M/mm3 (3.65-5.03); Red Cell Distribution Width 19.9 % (13.2-15.2)
[2022-07-29] MEDS ORDERED: cloNIDine 0.1 MG TAB PO ONE (20:50)
[2022-07-29] MEDS ORDERED: hydrALAZINE 25 MG TAB PO ONE (20:50)
[2022-07-29] MEDS ORDERED: DEXTROSE 50% IN WATER (25GM) 50 ML SYRINGE IV PRN (21:50)
[2022-07-29] MEDS ORDERED: ACETAMINOPHEN 325 MG TAB PO PRN (21:50)
[2022-07-29] MEDS ORDERED: NITROGLYCERIN 0.4 MG TAB SUBL SL PRN ×2 (21:50→21:53)
[2022-07-29] MEDS ORDERED: LEVALBUTEROL 1.25 MG/3 ML NEB IH PRN ×2 (21:53→23:00)
[2022-07-29] MEDS ORDERED: NON-FORMULARY EACH (Apixaban 2.5 MG Tablet) PO SCH (22:00)
[2022-07-29] MEDS ORDERED: HEPARIN 5,000 UNIT/1 ML VIAL SUB-Q SCH (22:00)
[2022-07-29] MEDS ORDERED: METOPROLOL TARTRATE 100 MG TAB PO SCH (22:00)
[2022-07-29] MEDS ORDERED: ZIPRASIDONE MESYLATE 20 MG VIAL IM ONE (22:03)
--- NOTE | 2022-07-29 22:03 | History and Physical Report ---
History of Present Illness Date of examination: 07/29/22 Date of admission: 07/29/22 Chief complaint: Chest pain History of present illness: 67-year-old female with history of atrial fibrillation, end-stage renal disease on dialysis, COPD and bipolar disorder presents to the emergency department with severe substernal chest pressure which started just prior to arrival. Chest pain is pressure-like 4/10. Patient denies shortness of breath, nausea, dizziness, or diaphoresis. Patient denies any other symptoms. Patient has been seen here several times for the same complaints, the last time being 07/25/2022. Patient was discharged from the emergency department on that day, but was admitted on 07/18/2022. Denies alleviating factor. In the emergency room initial cardiac enzyme is elevated, Troponin is 0.092 . Past History Past Medical History: atrial fib, COPD, diabetes, ESRD, GERD, heart failure, hypertension, hyperlipidemia, renal failure, stroke, other (Bipolar schizophrenia) Past Surgical History: Other (Coronary stent, pacemaker, stent placement x 2 in 2014, knee surgery 11/2017, ABD SX 2020) Social history: smoking Family history: diabetes, hypertension Medications and Allergies Allergies Allergy/AdvReac Type Severity Reaction Status Date / Time Iodinated Contrast Media AdvReac Intermediate Swelling Verified 07/29/22 16:56 apple AdvReac Hives Verified 07/29/22 16:56 shell fish Allergy Swelling Uncoded 07/29/22 16:56 Home Medications Medication Instructions Recorded Confirmed Last Taken Type Gabapentin 100 mg PO BID 03/02/22 07/19/22 Unknown History Pantoprazole [Protonix TAB] 40 mg PO QDAY 03/02/22 07/19/22 03/02/22 10:00 His tory methIMAzole [Methimazole] 10 mg PO TID 03/10/22 07/19/22 Unknown History Sennosides/Docusate [Senokot S] 1 tab PO DAILY #30 tablet 03/12/22 07/19/22 Unknown Rx Nitroglycerin [Nitrostat] 0.4 mg SL .Q5MIN PRN 30 Days #30 04/02/22 07/19/22 Unknown Rx tablet Apixaban [Eliquis] 2.5 mg PO Q12HR tablet 05/23/22 07/19/22 Unknown Rx Aspirin EC [Halfprin EC] 81 mg PO QDAY tablet 05/23/22 07/19/22 Unknown Rx ISOSORBIDE MONOnitrate [Imdur ER] 60 mg PO QDAY tablet 05/23/22 07/19/22 Unknown Rx Losartan [Cozaar] 50 mg PO QDAY tablet 05/23/22 07/19/22 Unknown Rx Metoprolol [Lopressor TAB] 100 mg PO BID #60 tablet 05/23/22 07/19/22 Unknown Rx hydrALAZINE [Apresoline TAB] 50 mg PO Q8HR tablet 05/23/22 07/19/22 Unknown Rx Amiodarone [Cordarone 200 MG TAB] 200 mg PO BID 30 Days #60 tablet 07/12/22 07/19/22 Unknown Rx Levalbuterol Tartrate 2 puff INHALATION Q6HR PRN 07/12/22 07/19/22 Unknown History [Levalbuterol Tartrate Hfa] amLODIPine 10 mg PO DAILY 07/12/22 07/19/22 Unknown History carvediloL [Coreg] 25 mg PO BID 07/12/22 07/19/22 Unknown History cloNIDine [Catapres] 0.1 mg PO Q8H 07/12/22 07/19/22 Unknown History HYDROcodone/APAP 5-325 [[place] 1 - 2 each PO Q6HR PRN #10 tablet 07/25/22 Unknown Rx 5/325] Active Meds: Active Medications Acetaminophen (Acetaminophen 325 Mg Tab) 650 mg PO Q6H PRN PRN Reason: Pain, Mild (1-3) Amiodarone HCl (Amiodarone 200 Mg Tab) 200 mg PO BID [facility] Amlodipine Besylate (Amlodipine 10 Mg Tab) 10 mg PO DAILY [facility] Aspirin (Aspirin Ec 81 Mg Tab) 81 mg PO QDAY [facility] Atorvastatin Calcium (Atorvastatin 40 Mg Tab) 40 mg PO QHS [facility] Carvedilol (Carvedilol 25 Mg Tab) 25 mg PO BID [facility] Clonidine HCl (Clonidine 0.1 Mg Tab) 0.1 mg PO Q8H [facility] Dextrose (Dextrose 50% In Water (25gm) 50 Ml Syringe) 50 ml IV Q30MIN PRN; Protocol PRN Reason: Hypoglycemia Gabapentin (Gabapentin 100 Mg Cap) 100 mg PO BID [facility] Heparin Sodium (Porcine) (Heparin 5,000 Unit/1 Ml Vial) 5,000 unit SUB-Q Q12HR [facility] Hydralazine HCl (Hydralazine 25 Mg Tab) 50 mg PO Q8HR [facility] Insulin Human Lispro (Insulin Lispro 100 Unit/Ml) 0 unit SUB-Q Q6HR [facility]; Protocol Isosorbide Mononitrate (Isosorbide Mononitrate Er 60 Mg Tab) 60 mg PO QDAY [facility] Losartan Potassium (Losartan 50 Mg Tab) 50 mg PO QDAY [facility] Methimazole (Methimazole 5 Mg Tab) 10 mg PO TID [facility] Metoprolol Tartrate (Metoprolol Tartrate 100 Mg Tab) 100 mg PO BID [facility] Miscellaneous Medication (Apixaban) 2.5 mg PO Q12HR [facility] Miscellaneous Medication (Levalbuterol Tartrate [Levalbuterol Tartrate Hfa]) 2 puff INHALATION Q6HR PRN PRN Reason: wheezing Morphine Sulfate (Morphine 4 Mg/1 Ml Inj) 2 mg IV Q5MIN PRN PRN Reason: Chest Pain unrelieved by NTG Nitroglycerin (Nitroglycerin 0.4 Mg Tab Subl) 0.4 mg SL Q5M PRN PRN Reason: Chest Pain Nitroglycerin (Nitroglycerin 0.4 Mg Tab Subl) 0.4 mg SL .Q5MIN PRN PRN Reason: Chest Pain Pantoprazole Sodium (Pantoprazole 40 Mg Tab) 40 mg PO QDAY [facility] Pantoprazole Sodium (Pantoprazole 40 Mg Tab) 40 mg PO QDAY [facility] Senna/Docusate Sodium (Sennosides/Docusate Sodium 8.6/50 Mg Tab) 1 tab PO DAILY [facility] Sodium Chloride (Sodium Chloride 0.9% 10 Ml Flush Syringe) 10 ml IV PRN PRN PRN Reason: LINE FLUSH Tramadol HCl (Tramadol 50 Mg Tab) 50 mg PO Q6H PRN PRN Reason: Pain, Moderate (4-6) Review of Systems All systems: negative Cardiovascular: chest pain, shortness of breath, dyspnea on exertion Exam - Constitutional Vitals: Temp Pulse Resp BP Pulse Ox 98.0 F 70 15 203/98 100 07/29/22 19:59 07/29/22 19:59 07/29/22 19:59 07/29/22 19:59 07/29/22 19:59 General appearance: Present: no acute distress, well-nourished - EENT Eyes: Present: PERRL ENT: hearing intact, clear oral mucosa - Neck Neck: Present: supple, normal ROM - Respiratory Respiratory effort: normal Respiratory: bilateral: diminished - Cardiovascular Rhythm: irregularly irregular Heart Sounds: Present: S1 & S2. Absent: rub, click - Extremities Extremities: pulses symmetrical, No edema Peripheral Pulses: within normal limits - Abdominal General gastrointestinal: Present: soft, non-tender, non-distended, normal bowel sounds Female genitourinary: Present: normal - Integumentary Integumentary: Present: clear, warm, dry - Musculoskeletal Musculoskeletal: gait normal, strength equal bilaterally - Psychiatric Psychiatric: appropriate mood/affect, intact judgment & insight - Neurologic Neurologic: CNII-XII intact, moves all extremities HEART Score - HEART Score EKG: Non-specific Age: > 65 Risk factors: > 3 risk factors or hx of atherosclerotic disease Troponin: Troponin T 0.092 ng/mL (0.00-0.029) H 07/29/22 20:18 Troponin: 1-3x normal limit Results - Labs CBC & Chem 7: 07/29/22 17:58 07/29/22 17:58 Labs: Laboratory Last Values WBC 15.2 K/mm3 (4.5-11.0) H 07/29/22 17:58 RBC 3.23 M/mm3 (3.65-5.03) L 07/29/22 17:58 Hgb 9.9 gm/dl (10.1-14.3) L 07/29/22 17:58 Hct 31.5 % (30.3-42.9) 07/29/22 17:58 MCV 98 fl (79-97) H 07/29/22 17:58 MCH 31 pg (28-32) 07/29/22 17:58 MCHC 32 % (30-34) 07/29/22 17:58 RDW 19.9 % (13.2-15.2) H 07/29/22 17:58 Plt Count 237 K/mm3 (140-440) 07/29/22 17:58 Lymph % (Auto) 13.7 % (13.4-35.0) 07/29/22 17:58 [place] % (Auto) 8.6 % (0.0-7.3) H 07/29/22 17:58 Eos % (Auto) 0.2 % (0.0-4.3) 07/29/22 17:58 Baso % (Auto) 0.8 % (0.0-1.8) 07/29/22 17:58 Lymph # (Auto) 2.1 K/mm3 (1.2-5.4) 07/29/22 17:58 [place] # (Auto) 1.3 K/mm3 (0.0-0.8) H 07/29/22 17:58 Eos # (Auto) 0.0 K/mm3 (0.0-0.4) 07/29/22 17:58 Baso # (Auto) 0.1 K/mm3 (0.0-0.1) 07/29/22 17:58 Seg Neutrophils % 76.7 % (40.0-70.0) H 07/29/22 17:58 Seg Neutrophils # 11.6 K/mm3 (1.8-7.7) H 07/29/22 17:58 Sodium 138 mmol/L (137-145) 07/29/22 17:58 Potassium 4.2 mmol/L (3.6-5.0) D 07/29/22 17:58 Chloride 98.0 mmol/L (98-107) 07/29/22 17:58 Carbon Dioxide 23 mmol/L (22-30) 07/29/22 17:58 Anion Gap 21 mmol/L 07/29/22 17:58 BUN 30 mg/dL (7-17) H 07/29/22 17:58 Creatinine 3.9 mg/dL (0.6-1.2) H D 07/29/22 17:58 Estimated GFR 14 ml/min 07/29/22 17:58 BUN/Creatinine Ratio 8 % 07/29/22 17:58 Glucose 100 mg/dL (65-100) 07/29/22 17:58 Calcium 9.8 mg/dL (8.4-10.2) 07/29/22 17:58 Total Bilirubin 1.20 mg/dL (0.1-1.2) 07/29/22 17:58 AST 21 units/L (5-40) 07/29/22 17:58 ALT 9 units/L (7-56) 07/29/22 17:58 Alkaline Phosphatase 69 units/L (35-129) 07/29/22 17:58 Troponin T 0.092 ng/mL (0.00-0.029) H 07/29/22 20:18 Total Protein 6.4 g/dL (6.3-8.2) 07/29/22 17:58 Albumin 4.4 g/dL (3.9-5) 07/29/22 17:58 Albumin/Globulin Ratio 2.2 % 07/29/22 17:58 - Imaging and Cardiology Chest x-ray: report reviewed Assessment and Plan VTE prophylaxis?: Chemical Plan of care discussed with patient/family: Yes - Patient Problems (1) ACS (acute coronary syndrome) Current Visit: No Status: Acute Plan to address problem: Admit the patient to the medical telemetry. Aspirin 81 mg p.o. daily. Eliquis 2.5 mg p.o. twice a day. Nitroglycerin as needed. Lipitor 40 mg p.o. daily. Serial cardiac enzymes. Echocardiogram. Cardiology evaluation (2) End stage renal disease on dialysis Current Visit: Yes Status: Acute Plan to address problem: Avoid nephrotoxic drug. Renally dose medication. Reconsult nephrology for hemodialysis. Recheck BMP in the morning (3) Elevated troponin Current Visit: Yes Status: Acute Plan to address problem: Aspirin 81 mg p.o. daily. Eliquis 2.5 mg p.o. twice a day. Nitroglycerin as needed. Lipitor 40 mg p.o. daily. Serial cardiac enzymes. Echocardiogram. Cardiology evaluation (4) CHF (congestive heart failure) Current Visit: No Status: Acute Qualifiers: Plan to address problem: Fluid restriction. Daily weight. Maintain input output. Echocardiogram. Continue home medication. Cardiology evaluation (5) COPD (chronic obstructive pulmonary disease) Current Visit: No Status: Acute Plan to address problem: Oxygen via nasal catheter per minute. DuoNeb via nebulizer every 4 hours. Albuterol via nebulizer every 4 hours as needed (6) Hypertension Current Visit: No Status: Chronic Qualifiers: Hypertension type: primary hypertension Qualified Code(s): I10 - Essential (primary) hypertension Plan to address problem: Amiodarone 200 mg p.o. twice daily. Amlodipine 10 mg p.o. daily. Coreg 25 mg p.o. twice daily. Clonidine 0.1 mg p.o. every 8 hours (7) Hyperthyroidism Current Visit: No Status: Chronic Plan to address problem: Methimazole 10 mg p.o. 3 times daily. Outpatient follow-up with release manager. (8) T2DM (type 2 diabetes mellitus) Current Visit: No Status: Chronic Qualifiers: Diabetes mellitus terminal gauger insulin use: unspecified snf insulin use status Plan to address problem: Accu-Chek every 6 hours with Humalog moderate dose coverage. Diabetic education. Continue home medication (9) Tobacco abuse Current Visit: Yes Status: Acute Plan to address problem: We will counseled the patient regarding quitting smoking. We put the patient on nicotine patch (10) DVT prophylaxis Current Visit: Yes Status: Acute Plan to address problem: Eliquis 2.5 mg p.o. twice daily for DVT prophylaxis. Protonix 40 mg p.o. daily for GI prophylaxis. Patient is a full code
[2022-07-29] MEDS ORDERED: MIDAZOLAM 2 MG/2 ML INJ ONE (22:16)
[2022-07-30] MEDS: carvediloL 25 MG TAB PO SCH ×3 (00:32→18:34)
[2022-07-30] MEDS: cloNIDine 0.1 MG TAB PO SCH ×3 (00:32→13:36)
[2022-07-30] MEDS: hydrALAZINE 25 MG TAB PO SCH ×4 (00:32→21:25)
[2022-07-30] MEDS: GABAPENTIN 100 MG CAP PO SCH ×3 (00:33→21:25)
[2022-07-30] MEDS: INSULIN LISPRO 100 UNIT/ML SUB-Q SCH ×4 (01:39→18:34)
[2022-07-30] MEDS: AMIODARONE 200 MG TAB PO SCH ×3 (01:43→21:25)
[2022-07-30 05:55] LABS: Basophils # (Auto) 0.1 K/mm3 (0.0-0.1); Basophils % (Auto) 0.9 % (0.0-1.8); Eosinophils # (Auto) 0.1 K/mm3 (0.0-0.4); Eosinophils % (Auto) 0.5 % (0.0-4.3); Hematocrit 29.2 % (30.3-42.9); Hemoglobin 9.2 gm/dl (10.1-14.3); Lymphocytes # (Auto) 1.8 K/mm3 (1.2-5.4); Lymphocytes % (Auto) 15.9 % (13.4-35.0); Mean Corpuscular HGB Conc 32 % (30-34); Mean Corpuscular Volume 98 fl (79-97); Monocytes # (Auto) 0.8 K/mm3 (0.0-0.8); Monocytes % (Auto) 6.9 % (0.0-7.3); Platelet Count 192 K/mm3 (140-440); Red Blood Count 2.98 M/mm3 (3.65-5.03); Red Cell Distribution Width 19.6 % (13.2-15.2)
[2022-07-30 06:07] LABS: Calcium 9.1 mg/dL (8.4-10.2)
[2022-07-30 06:36] LABS: Chol/HDL Ratio 2.21 %
[2022-07-30] MEDS: MORPHINE 2 MG/1 ML INJ IV PRN (08:21)
--- NOTE | 2022-07-30 08:48 | Progress Note ---
Assessment and Plan Assessment and plan: -- ACS (acute coronary syndrome) Admit the patient to the medical telemetry. Aspirin 81 mg p.o. daily. Eliquis 2.5 mg p.o. twice a day. Nitroglycerin as needed. Lipitor 40 mg p.o. daily. Serial cardiac enzymes. Echocardiogram. Cardiology evaluation -- End stage renal disease on dialysis Nephrology consulted Hemodialysis per schedule, avoid nephrotoxins Renal dosing of medications, closely monitor --Elevated troponin In the setting of end-stage renal disease, troponin probably is nonspecific However patient has multiple risk factors need to rule out acute coronary syndrome Follow cardiology evaluation recommendations, follow echocardiogram and LV ejection fraction --Atrial fibrillation; rate controlled Amiodarone 200 mg p.o. twice daily. Continue beta-blockers, Cardiology following chronic anticoagulation with Eliquis, follow echocardiogram findings -- CHF (congestive heart failure) unknown ejection fraction Fluid restriction. Daily weight. Maintain input output. Echocardiogram. Continue home medication. Cardiology evaluation --COPD (chronic obstructive pulmonary disease) chronic Oxygen via nasal catheter per minute. DuoNeb via nebulizer every 4 hours. Albuterol via nebulizer every 4 hours as needed --Hypertension moderate control Amlodipine 10 mg p.o. daily. Coreg 25 mg p.o. twice daily. Clonidine 0.1 mg p.o. every 8 hours As needed hydralazine --Hyperthyroidism Methimazole 10 mg p.o. 3 times daily. Outpatient follow-up with transit mixer operator. --T2DM (type 2 diabetes mellitus) Accu-Chek every 6 hours with Humalog moderate dose coverage. Diabetic education. Continue home medication --Tobacco abuse We will counseled the patient regarding quitting smoking. We put the patient on nicotine patch Smoking cessation counseling; --DVT prophylaxis Eliquis 2.5 mg p.o. twice daily for DVT prophylaxis. Protonix 40 mg p.o. daily for GI prophylaxis. Patient is a full code Closely monitor the patient and adjust management as needed Plan of care reviewed with the patient and her nurse Cardiology evaluation and recommendations noted and appreciated History Interval history: I have seen and examined the patient at the bedside Patient's chart and medications reviewed Patient was admitted with chest pain and mild elevation of troponins Patient feels slightly better Denies chest pain or shortness of breath Vital signs noted Hospitalist Physical - Constitutional Vitals: Temp Pulse Resp BP Pulse Ox 98.0 F 70 18 125/80 98 09/19/22 19:59 07/30/22 05:11 07/30/22 05:11 07/30/22 05:11 07/30/22 05:11 General appearance: Present: no acute distress, well-nourished - EENT Eyes: Present: PERRL, EOM intact - Neck Neck: Present: supple, normal ROM - Respiratory Respiratory effort: normal Respiratory: bilateral: diminished, negative: rales, rhonchi, wheezing - Cardiovascular Rhythm: regular Heart Sounds: Present: S1 & S2 - Extremities Extremities: no ischemia, No edema - Abdominal General gastrointestinal: soft, non-tender, non-distended, normal bowel sounds - Integumentary Integumentary: Present: clear, warm - Psychiatric Psychiatric: appropriate mood/affect, cooperative - Neurologic Neurologic: CNII-XII intact, moves all extremities HEART Score - HEART Score EKG: Non-specific Age: > 65 Risk factors: > 3 risk factors or hx of atherosclerotic disease Troponin: Troponin T 0.089 ng/mL (0.00-0.029) H 07/30/22 03:52 Troponin: 1-3x normal limit Results - Labs CBC & Chem 7: 07/30/22 04:00 07/30/22 04:00 Labs: Laboratory Last Values WBC 11.6 K/mm3 (4.5-11.0) H 07/30/22 04:00 RBC 2.98 M/mm3 (3.65-5.03) L 07/30/22 04:00 Hgb 9.2 gm/dl (10.1-14.3) L 07/30/22 04:00 Hct 29.2 % (30.3-42.9) L 07/30/22 04:00 MCV 98 fl (79-97) H 07/30/22 04:00 MCH 31 pg (28-32) 07/30/22 04:00 MCHC 32 % (30-34) 07/30/22 04:00 RDW 19.6 % (13.2-15.2) H 07/30/22 04:00 Plt Count 192 K/mm3 (140-440) 07/30/22 04:00 Lymph % (Auto) 15.9 % (13.4-35.0) 07/30/22 04:00 [place] % (Auto) 6.9 % (0.0-7.3) 07/30/22 04:00 Eos % (Auto) 0.5 % (0.0-4.3) 07/30/22 04:00 Baso % (Auto) 0.9 % (0.0-1.8) 07/30/22 04:00 Lymph # (Auto) 1.8 K/mm3 (1.2-5.4) 07/30/22 04:00 [place] # (Auto) 0.8 K/mm3 (0.0-0.8) 07/30/22 04:00 Eos # (Auto) 0.1 K/mm3 (0.0-0.4) 07/30/22 04:00 Baso # (Auto) 0.1 K/mm3 (0.0-0.1) 07/30/22 04:00 Seg Neutrophils % 75.8 % (40.0-70.0) H 07/30/22 04:00 Seg Neutrophils # 8.8 K/mm3 (1.8-7.7) H 07/30/22 04:00 Sodium 139 mmol/L (137-145) 07/30/22 04:00 Potassium 4.7 mmol/L (3.6-5.0) 07/30/22 04:00 Chloride 98.9 mmol/L (98-107) 07/30/22 04:00 Carbon Dioxide 24 mmol/L (22-30) 07/30/22 04:00 Anion Gap 21 mmol/L 07/30/22 04:00 BUN 38 mg/dL (7-17) H 07/30/22 04:00 Creatinine 4.5 mg/dL (0.6-1.2) H 07/30/22 04:00 Estimated GFR 12 ml/min 07/30/22 04:00 BUN/Creatinine Ratio 8 % 07/30/22 04:00 Glucose 85 mg/dL (65-100) 07/30/22 04:00 Calcium 9.1 mg/dL (8.4-10.2) 07/30/22 04:00 Total Bilirubin 1.20 mg/dL (0.1-1.2) 07/29/22 17:58 AST 21 units/L (5-40) 07/29/22 17:58 ALT 9 units/L (7-56) 07/29/22 17:58 Alkaline Phosphatase 69 units/L (35-129) 07/29/22 17:58 Troponin T 0.089 ng/mL (0.00-0.029) H 07/30/22 03:52 Total Protein 6.4 g/dL (6.3-8.2) 07/29/22 17:58 Albumin 4.4 g/dL (3.9-5) 07/29/22 17:58 Albumin/Globulin Ratio 2.2 % 07/29/22 17:58 Triglycerides 91 mg/dL (2-149) 07/30/22 03:52 Cholesterol 144 mg/dL (50-199) 07/30/22 03:52 LDL Cholesterol Direct 67 mg/dL (50-130) 07/30/22 03:52 HDL Cholesterol 65 mg/dL (40-59) H 07/30/22 03:52 Cholesterol/HDL Ratio 2.21 % 07/30/22 03:52 Active Medications - Current Medications Current Medications: Generic Name Dose Route Start Last Admin Trade Name Freq PRN Reason Stop Dose Admin Acetaminophen 650 mg 07/29/22 21:50 Acetaminophen 325 Mg Tab PO Q6H PRN Pain, Mild (1-3) Amiodarone HCl 200 mg 07/29/22 22:00 07/30/22 01:43 Amiodarone 200 Mg Tab PO 200 mg BID [facility] Administration Amlodipine Besylate 10 mg 07/30/22 10:00 Amlodipine 10 Mg Tab PO DAILY [facility] Apixaban 2.5 mg 07/30/22 10:00 Apixaban 2.5 Mg Tab PO Q12HR [facility] Aspirin 81 mg 07/30/22 10:00 Aspirin Ec 81 Mg Tab PO QDAY [facility] Atorvastatin Calcium 40 mg 07/29/22 22:00 07/30/22 00:33 Atorvastatin 40 Mg Tab PO 40 mg QHS [facility] Administration Carvedilol 25 mg 07/29/22 22:00 07/30/22 08:22 Carvedilol 25 Mg Tab PO 25 mg BID@0800,1700 [facility] Administration Clonidine HCl 0.1 mg 07/29/22 22:00 07/30/22 06:11 Clonidine 0.1 Mg Tab PO Not Given Q8H [facility] Dextrose 0 ml 07/29/22 21:50 Dextrose 50% In Water (25gm) 50 Ml Syringe IV Q30MIN PRN Hypoglycemia Protocol Gabapentin 100 mg 07/29/22 22:00 07/30/22 00:33 Gabapentin 100 Mg Cap PO 100 mg BID [facility] Administration Hydralazine HCl 50 mg 07/29/22 22:00 07/30/22 06:11 Hydralazine 25 Mg Tab PO Not Given Q8HR [facility] Insulin Human Lispro 0 unit 07/30/22 00:00 07/30/22 08:14 Insulin Lispro 100 Unit/Ml SUB-Q Not Given Q6HR [facility] Protocol Isosorbide Mononitrate 60 mg 07/30/22 10:00 Isosorbide Mononitrate Er 60 Mg Tab PO QDAY [facility] Levalbuterol HCl 1.25 mg 07/29/22 23:00 Levalbuterol 1.25 Mg/3 Ml Neb IH Q6HRT PRN wheezing Losartan Potassium 50 mg 07/30/22 10:00 Losartan 50 Mg Tab PO QDAY [facility] Methimazole 10 mg 07/30/22 08:00 Methimazole 5 Mg Tab PO TID [facility] Morphine Sulfate 2 mg 07/29/22 21:50 07/30/22 08:21 Morphine 2 Mg/1 Ml Inj IV 2 mg Q5MIN PRN Administration Chest Pain unrelieved by NTG Nicotine 14 mg 07/30/22 10:00 Nicotine 14 Mg/24 Hr Patch TD QDAY [facility] Nitroglycerin 0.4 mg 07/29/22 21:53 Nitroglycerin 0.4 Mg Tab Subl SL .Q5MIN PRN Chest Pain Pantoprazole Sodium 40 mg 07/30/22 10:00 Pantoprazole 40 Mg Tab PO QDAY [facility] Senna/Docusate Sodium 1 tab 07/30/22 10:00 Sennosides/Docusate Sodium 8.6/50 Mg Tab PO DAILY [facility] Sodium Chloride 10 ml 07/29/22 21:50 Sodium Chloride 0.9% 10 Ml Flush Syringe IV PRN PRN LINE FLUSH Tramadol HCl 50 mg 07/29/22 21:50 Tramadol 50 Mg Tab PO Q6H PRN Pain, Moderate (4-6)
--- NOTE | 2022-07-30 09:32 | Electrocardiograph Report ---
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
[2022-07-30] MEDS ORDERED: PANTOPRAZOLE 40 MG TAB PO SCH (10:00)
[2022-07-30] MEDS ORDERED: SODIUM CHLORIDE 0.9% 100 ML IV PRN (11:45)
[2022-07-30] MEDS ORDERED: EPOETIN ALFA-EPBX 20,000 UNIT/1 ML VIAL SUB-Q PRN (11:45)
[2022-07-30] MEDS ORDERED: HEPARIN 10,000 UNITS/10 ML VIAL IV PRN (11:45)
[2022-07-30] MEDS: amLODIPine 10 MG TAB PO SCH (12:10)
[2022-07-30] MEDS: SENNOSIDES/DOCUSATE SODIUM 8.6/50 MG TAB PO SCH (12:17)
[2022-07-30] MEDS: methIMAzole 5 MG TAB PO SCH ×3 (12:17→21:26)
[2022-07-30] MEDS: LOSARTAN 50 MG TAB PO SCH (12:18)
[2022-07-30] MEDS: APIXABAN 2.5 MG TAB PO SCH ×2 (12:18→21:25)
[2022-07-30] MEDS: ASPIRIN EC 81 MG TAB PO SCH (12:18)
[2022-07-30] MEDS: NICOTINE 14 MG/24 HR PATCH TD SCH (12:19)
[2022-07-30] MEDS: PANTOPRAZOLE 40 MG TAB PO SCH (12:19)
--- NOTE | 2022-07-30 14:01 | Consultation ---
History of Present Illness Consult date: 07/30/22 Consult reason: other (Palpitations) History of present illness: Patient is a 67-year-old woman with paroxysmal atrial fibrillation and coronary artery disease. Coronary artery disease has been stable and asymptomatic. Notably, she has had multiple admissions over the past several months, each instance for acute onset of palpitations and chest pressure, due to a recurrence of atrial fibrillation. She is on amiodarone 200 mg, and oral anticoagulation with Eliquis. Comorbidities include end-stage renal disease on hemodialysis. She also has a dual-chamber cardiac pacemaker. This time, she is readmitted, with acute onset palpitations which occurred while she was at home. She has been compliant with her hemodialysis and most recently the day before. There was no exertional chest pain, no syncope. By the time of presentation to the emergency room, EKG was a sinus rhythm, first-degree AV block and ventricular paced complexes. Patient denies noncompliance with her amiodarone. Past History Past Medical History: atrial fib, COPD, diabetes, ESRD, GERD, heart failure, hypertension, hyperlipidemia, renal failure, stroke, other (Bipolar schizophrenia) Past Surgical History: Other (Coronary stent, pacemaker, stent placement x 2 in 2014, knee surgery 11/2017, ABD SX 2020) Social history: smoking Family history: diabetes, hypertension Medications and Allergies Allergies Allergy/AdvReac Type Severity Reaction Status Date / Time Iodinated Contrast Media AdvReac Intermediate Swelling Verified 07/29/22 16:56 apple AdvReac Hives Verified 07/29/22 16:56 shell fish Allergy Swelling Uncoded 07/29/22 16:56 Home Medications Medication Instructions Recorded Confirmed Last Taken Type Gabapentin 100 mg PO BID 03/02/22 07/19/22 Unknown History Pantoprazole [Protonix TAB] 40 mg PO QDAY 03/02/22 07/19/22 03/02/22 10:00 History methIMAzole [Methimazole] 10 mg PO TID 03/10/22 07/19/22 Unknown History Sennosides/Docusate [Senokot S] 1 tab PO DAILY #30 tablet 03/12/22 07/19/22 Unknown Rx Nitroglycerin [Nitrostat] 0.4 mg SL .Q5MIN PRN 30 Days #30 04/02/22 07/19/22 Unknown Rx tablet Apixaban [Eliquis] 2.5 mg PO Q12HR tablet 05/23/22 07/19/22 Unknown Rx Aspirin EC [Halfprin EC] 81 mg PO QDAY tablet 05/23/22 07/19/22 Unknown Rx ISOSORBIDE MONOnitrate [Imdur ER] 60 mg PO QDAY tablet 05/23/22 07/19/22 Unknown Rx Losartan [Cozaar] 50 mg PO QDAY tablet 05/23/22 07/19/22 Unknown Rx Metoprolol [Lopressor TAB] 100 mg PO BID #60 tablet 05/23/22 07/19/22 Unknown Rx hydrALAZINE [Apresoline TAB] 50 mg PO Q8HR tablet 05/23/22 07/19/22 Unknown Rx Amiodarone [Cordarone 200 MG TAB] 200 mg PO BID 30 Days #60 tablet 07/12/22 07/19/22 Unknown Rx Levalbuterol Tartrate 2 puff INHALATION Q6HR PRN 07/12/22 07/19/22 Unknown History [Levalbuterol Tartrate Hfa] amLODIPine 10 mg PO DAILY 07/12/22 07/19/22 Unknown History carvediloL [Coreg] 25 mg PO BID 07/12/22 07/19/22 Unknown History cloNIDine [Catapres] 0.1 mg PO Q8H 07/12/22 07/19/22 Unknown History HYDROcodone/APAP 5-325 [[place] 1 - 2 each PO Q6HR PRN #10 tablet 07/25/22 Unknown Rx 5/325] Active Meds: Active Medications Acetaminophen (Acetaminophen 325 Mg Tab) 650 mg PO Q6H PRN PRN Reason: Pain, Mild (1-3) Amiodarone HCl (Amiodarone 200 Mg Tab) 200 mg PO BID [facility] Last Admin: 07/30/22 12:18 Dose: 200 mg Amlodipine Besylate (Amlodipine 10 Mg Tab) 10 mg PO DAILY [facility] Last Admin: 07/30/22 12:10 Dose: Not Given Apixaban (Apixaban 2.5 Mg Tab) 2.5 mg PO Q12HR [facility] Last Admin: 07/30/22 12:18 Dose: 2.5 mg Aspirin (Aspirin Ec 81 Mg Tab) 81 mg PO QDAY [facility] Last Admin: 07/30/22 12:18 Dose: 81 mg Atorvastatin Calcium (Atorvastatin 40 Mg Tab) 40 mg PO QHS [facility] Last Admin: 07/30/22 00:33 Dose: 40 mg Carvedilol (Carvedilol 25 Mg Tab) 25 mg PO BID@0800,1700 [facility] Last Admin: 07/30/22 08:22 Dose: 25 mg Clonidine HCl (Clonidine 0.1 Mg Tab) 0.1 mg PO Q8H [facility] Last Admin: 07/30/22 13:36 Dose: 0.1 mg Dextrose (Dextrose 50% In Water (25gm) 50 Ml Syringe) 0 ml IV Q30MIN PRN; Protocol PRN Reason: Hypoglycemia Epoetin Heladio-epbx (Epoetin Heladio-Epbx 20,000 Unit/1 Ml Vial) 20,000 unit SUB-Q KARLENE PRN PRN Reason: hemodialysis Gabapentin (Gabapentin 100 Mg Cap) 100 mg PO BID [facility] Last Admin: 07/30/22 12:18 Dose: 100 mg Heparin Sodium (Porcine) (Heparin 10,000 Units/10 Ml Vial) 3,000 unit IV KARLENE PRN PRN Reason: hemodialysis Hydralazine HCl (Hydralazine 25 Mg Tab) 50 mg PO Q8HR [facility] Last Admin: 07/30/22 13:36 Dose: 50 mg Sodium Chloride (Nacl 0.9%) 100 mls @ 999 mls/hr IV KARLENE PRN PRN Reason: Hypotension Insulin Human Lispro (Insulin Lispro 100 Unit/Ml) 0 unit SUB-Q Q6HR [facility]; Protocol Last Admin: 07/30/22 12:10 Dose: Not Given Isosorbide Mononitrate (Isosorbide Mononitrate Er 60 Mg Tab) 60 mg PO QDAY [facility] Last Admin: 07/30/22 12:17 Dose: 60 mg Levalbuterol HCl (Levalbuterol 1.25 Mg/3 Ml Neb) 1.25 mg IH Q6HRT PRN PRN Reason: wheezing Losartan Potassium (Losartan 50 Mg Tab) 50 mg PO QDAY [facility] Last Admin: 07/30/22 12:18 Dose: 50 mg Methimazole (Methimazole 5 Mg Tab) 10 mg PO TID [facility] Last Admin: 07/30/22 13:36 Dose: 10 mg Morphine Sulfate (Morphine 2 Mg/1 Ml Inj) 2 mg IV Q5MIN PRN PRN Reason: Chest Pain unrelieved by NTG Last Admin: 07/30/22 08:21 Dose: 2 mg Nicotine (Nicotine 14 Mg/24 Hr Patch) 14 mg TD QDAY [facility] Last Admin: 07/30/22 12:19 Dose: Not Given Nitroglycerin (Nitroglycerin 0.4 Mg Tab Subl) 0.4 mg SL .Q5MIN PRN PRN Reason: Chest Pain Pantoprazole Sodium (Pantoprazole 40 Mg Tab) 40 mg PO QDAY [facility] Last Admin: 07/30/22 12:19 Dose: Not Given Senna/Docusate Sodium (Sennosides/Docusate Sodium 8.6/50 Mg Tab) 1 tab PO DAILY [facility] Last Admin: 07/30/22 12:17 Dose: 1 tab Sodium Chloride (Sodium Chloride 0.9% 10 Ml Flush Syringe) 10 ml IV PRN PRN PRN Reason: LINE FLUSH Tramadol HCl (Tramadol 50 Mg Tab) 50 mg PO Q6H PRN PRN Reason: Pain, Moderate (4-6) Review of Systems Cardiovascular: chest pain, palpitations, rapid/irregular heart beat, shortness of breath, no orthopnea, no edema, no syncope, no lightheadedness Physical Examination Vital Signs Temp Pulse Resp BP Pulse Ox 98.6 F 89 18 206/104 100 07/29/22 16:43 07/29/22 16:43 07/29/22 16:43 07/29/22 16:43 07/29/22 16:43 General appearance: no acute distress HEENT: Positive: PERRL Neck: Positive: neck supple Cardiac: Positive: Reg Rate and Rhythm Lungs: Positive: Decreased Breath Sounds Neuro: Positive: Grossly Intact Abdomen: Positive: Soft Female genitourinary: deferred Skin: Positive: Clear Extremities: Absent: edema Results 07/30/22 04:00 07/30/22 04:00 Cardiac Enzymes 07/29/22 Range/Units 17:58 AST 21 (5-40) units/L Lipids 07/30/22 Range/Units 03:52 Triglycerides 91 (2-149) mg/dL Cholesterol 144 (50-199) mg/dL HDL Cholesterol 65 H (40-59) mg/dL Cholesterol/HDL Ratio 2.21 % CBC 07/29/22 07/30/22 Range/Units 17:58 04:00 WBC 15.2 H 11.6 H (4.5-11.0) K/mm3 RBC 3.23 L 2.98 L (3.65-5.03) M/mm3 Hgb 9.9 L 9.2 L (10.1-14.3) gm/dl Hct 31.5 29.2 L (30.3-42.9) % Plt Count 237 192 (140-440) K/mm3 Lymph # (Auto) 2.1 1.8 (1.2-5.4) K/mm3 [place] # (Auto) 1.3 H 0.8 (0.0-0.8) K/mm3 Eos # (Auto) 0.0 0.1 (0.0-0.4) K/mm3 Baso # (Auto) 0.1 0.1 (0.0-0.1) K/mm3 Comprehensive Metabolic Panel 07/29/22 07/30/22 Range/Units 17:58 04:00 Sodium 138 139 (137-145) mmol/L Potassium 4.2 D 4.7 (3.6-5.0) mmol/L Chloride 98.0 98.9 (98-107) mmol/L Carbon Dioxide 23 24 (22-30) mmol/L BUN 30 H 38 H (7-17) mg/dL Creatinine 3.9 H D 4.5 H (0.6-1.2) mg/dL Glucose 100 85 (65-100) mg/dL Calcium 9.8 9.1 (8.4-10.2) mg/dL AST 21 (5-40) units/L ALT 9 (7-56) units/L Alkaline Phosphatase 69 (35-129) units/L Total Protein 6.4 (6.3-8.2) g/dL Albumin 4.4 (3.9-5) g/dL EKG interpretations - Telemetry EKG Rhythm: Sinus Rhythm (With first-degree AV block and ventricular paced complexes) Assessment and Plan - Patient Problems (1) Paroxysmal atrial fibrillation Current Visit: Yes Status: Acute Plan to address problem: Patient has recurrent admissions for palpitations due to paroxysms of atrial fibrillation. She currently has returned to his sinus rhythm. She is on amiodarone 200 mg p.o. twice daily. Patient looks and feels better, on discharge I would recommend immediate follow- up with predatory hunter, for further evaluation of atrial fibrillation to recommend additional avenues of rhythm control.
--- NOTE | 2022-07-30 14:28 | Consultation ---
History of Present Illness - Reason for Consult Consult date: 07/30/22 end stage renal disease - History of Present Illness The patient is a 67 YO female known to our service with history of DM-2, HTN, HLD, Bipolar Disorder, CAD s/p Stent Placement, Paroxysmal Atrial fibrillation, HFpEF, COPD, Anemia and ESRD on hemodialysis (TTS) who presented to [facility] 07/29/22 with chest pain and palpitation. The pain was substernal, sharp, constant and not radiating. Associated palpitation. Patient has chronic intermittent shortness of breath, cough and wheezing. Patient denies any N, V, D, abd pain, dizziness, weakness, fever, chills, rash, blurry vision, hematuria or hemoptysis. She has had several admissions and ER visits with similar presentation and had extensive workup. Patient was admitted for further evaluation. Labs and imaging noted. Nephrology was consulted for ESRD management. Past History Past Medical History: atrial fib, COPD, diabetes, ESRD, GERD, heart failure, hypertension, hyperlipidemia, renal failure, stroke, other (Bipolar schizophrenia) Past Surgical History: Other (Coronary stent, pacemaker, stent placement x 2 in 2014, knee surgery 11/2017, ABD SX 2020) Social history: smoking Family history: diabetes, hypertension Medications and Allergies Allergies Allergy/AdvReac Type Severity Reaction Status Date / Time Iodinated Contrast Media AdvReac Intermediate Swelling Verified 07/29/22 16:56 apple AdvReac Hives Verified 07/29/22 16:56 shell fish Allergy Swelling Uncoded 07/29/22 16:56 Home Medications Medication Instructions Recorded Confirmed Last Taken Type Gabapentin 100 mg PO BID 03/02/22 07/19/22 Unknown History Pantoprazole [Protonix TAB] 40 mg PO QDAY 03/02/22 07/19/22 03/02/22 10:00 History methIMAzole [Methimazole] 10 mg PO TID 03/10/22 07/19/22 Unknown History Sennosides/Docusate [Senokot S] 1 tab PO DAILY #30 tablet 03/12/22 07/19/22 Unknown Rx Nitroglycerin [Nitrostat] 0.4 mg SL .Q5MIN PRN 30 Days #30 04/02/22 07/19/22 Unk nown Rx tablet Apixaban [Eliquis] 2.5 mg PO Q12HR tablet 05/23/22 07/19/22 Unknown Rx Aspirin EC [Halfprin EC] 81 mg PO QDAY tablet 05/23/22 07/19/22 Unknown Rx ISOSORBIDE MONOnitrate [Imdur ER] 60 mg PO QDAY tablet 05/23/22 07/19/22 Unknown Rx Losartan [Cozaar] 50 mg PO QDAY tablet 05/23/22 07/19/22 Unknown Rx Metoprolol [Lopressor TAB] 100 mg PO BID #60 tablet 05/23/22 07/19/22 Unknown Rx hydrALAZINE [Apresoline TAB] 50 mg PO Q8HR tablet 05/23/22 07/19/22 Unknown Rx Amiodarone [Cordarone 200 MG TAB] 200 mg PO BID 30 Days #60 tablet 07/12/22 07/19/22 Unknown Rx Levalbuterol Tartrate 2 puff INHALATION Q6HR PRN 07/12/22 07/19/22 Unknown History [Levalbuterol Tartrate Hfa] amLODIPine 10 mg PO DAILY 07/12/22 07/19/22 Unknown History carvediloL [Coreg] 25 mg PO BID 07/12/22 07/19/22 Unknown History cloNIDine [Catapres] 0.1 mg PO Q8H 07/12/22 07/19/22 Unknown History HYDROcodone/APAP 5-325 [[place] 1 - 2 each PO Q6HR PRN #10 tablet 07/25/22 Unknown Rx 5/325] Active Meds: Active Medications Acetaminophen (Acetaminophen 325 Mg Tab) 650 mg PO Q6H PRN PRN Reason: Pain, Mild (1-3) Amiodarone HCl (Amiodarone 200 Mg Tab) 200 mg PO BID [facility] Last Admin: 07/30/22 12:18 Dose: 200 mg Amlodipine Besylate (Amlodipine 10 Mg Tab) 10 mg PO DAILY [facility] Last Admin: 07/30/22 12:10 Dose: Not Given Apixaban (Apixaban 2.5 Mg Tab) 2.5 mg PO Q12HR [facility] Last Admin: 07/30/22 12:18 Dose: 2.5 mg Aspirin (Aspirin Ec 81 Mg Tab) 81 mg PO QDAY [facility] Last Admin: 07/30/22 12:18 Dose: 81 mg Atorvastatin Calcium (Atorvastatin 40 Mg Tab) 40 mg PO QHS [facility] Last Admin: 07/30/22 00:33 Dose: 40 mg Carvedilol (Carvedilol 25 Mg Tab) 25 mg PO BID@0800,1700 [facility] Last Admin: 07/30/22 08:22 Dose: 25 mg Clonidine HCl (Clonidine 0.1 Mg Tab) 0.1 mg PO Q8H [facility] Last Admin: 07/30/22 13:36 Dose: 0.1 mg Dextrose (Dextrose 50% In Water (25gm) 50 Ml Syringe) 0 ml IV Q30MIN PRN; Protocol PRN Reason: Hypoglycemia Epoetin Heladio-epbx (Epoetin Heladio-Epbx 20,000 Unit/1 Ml Vial) 20,000 unit SUB-Q KARLENE PRN PRN Reason: hemodialysis Gabapentin (Gabapentin 100 Mg Cap) 100 mg PO BID [facility] Last Admin: 07/30/22 12:18 Dose: 100 mg Heparin Sodium (Porcine) (Heparin 10,000 Units/10 Ml Vial) 3,000 unit IV KARLENE PRN PRN Reason: hemodialysis Hydralazine HCl (Hydralazine 25 Mg Tab) 50 mg PO Q8HR [facility] Last Admin: 07/30/22 13:36 Dose: 50 mg Sodium Chloride (Nacl 0.9%) 100 mls @ 999 mls/hr IV KARLENE PRN PRN Reason: Hypotension Insulin Human Lispro (Insulin Lispro 100 Unit/Ml) 0 unit SUB-Q Q6HR [facility]; Protocol Last Admin: 07/30/22 12:10 Dose: Not Given Isosorbide Mononitrate (Isosorbide Mononitrate Er 60 Mg Tab) 60 mg PO QDAY [facility] Last Admin: 07/30/22 12:17 Dose: 60 mg Levalbuterol HCl (Levalbuterol 1.25 Mg/3 Ml Neb) 1.25 mg IH Q6HRT PRN PRN Reason: wheezing Losartan Potassium (Losartan 50 Mg Tab) 50 mg PO QDAY [facility] Last Admin: 07/30/22 12:18 Dose: 50 mg Methimazole (Methimazole 5 Mg Tab) 10 mg PO TID [facility] Last Admin: 07/30/22 13:36 Dose: 10 mg Morphine Sulfate (Morphine 2 Mg/1 Ml Inj) 2 mg IV Q5MIN PRN PRN Reason: Chest Pain unrelieved by NTG Last Admin: 07/30/22 08:21 Dose: 2 mg Nicotine (Nicotine 14 Mg/24 Hr Patch) 14 mg TD QDAY [facility] Last Admin: 07/30/22 12:19 Dose: Not Given Nitroglycerin (Nitroglycerin 0.4 Mg Tab Subl) 0.4 mg SL .Q5MIN PRN PRN Reason: Chest Pain Pantoprazole Sodium (Pantoprazole 40 Mg Tab) 40 mg PO QDAY [facility] Last Admin: 07/30/22 12:19 Dose: Not Given Senna/Docusate Sodium (Sennosides/Docusate Sodium 8.6/50 Mg Tab) 1 tab PO DAILY [facility] Last Admin: 07/30/22 12:17 Dose: 1 tab Sodium Chloride (Sodium Chloride 0.9% 10 Ml Flush Syringe) 10 ml IV PRN PRN PRN Reason: LINE FLUSH Tramadol HCl (Tramadol 50 Mg Tab) 50 mg PO Q6H PRN PRN Reason: Pain, Moderate (4-6) Exam - Vital Signs Vital signs: Vital Signs Temp Pulse Resp BP Pulse Ox 98.6 F 89 18 206/104 100 07/29/22 16:43 07/29/22 16:43 07/29/22 16:43 07/29/22 16:43 07/29/22 16:43 Results - Lab Results 07/30/22 04:00 07/30/22 04:00 Most recent lab results Calcium 9.1 mg/dL (8.4-10.2) 07/30/22 04:00 Assessment and Plan 1. ESRD: Patient is on maintenance hemodialysis, TTS schedule. Hemodialysis: today. 2. FEN: UF with HD as tolerated. Monitor lytes and volume status. 3. Chest pain // H/o CAD s/p PCI: Seen by Cards. Monitor. 4. Paroxysmal A.fib with RVR: SR now. Continue home meds. Monitor. 5. Chronic HFpEF: Volume control thru HD. Fluid restriction, monitor I/O. 6. H/o COPD: Nebs and O2 as needed. 7. Hypertension: Volume control with HD. Adjust BP meds as needed. Monitor BP. 8. Normochromic anemia, POA: Chronic. Likely 2/2 ESRD. Epogen as needed. Subjective: Patient was seen and examined at the bedside. Examination: General appearance: well-developed, appears stated age, no distress HEENT: atraumatic, ANA Neck: trachea midline Respiratory: bilateral rales and wheezing noted Heart: S1S2, no murmur Abdomen: soft, bowel sounds heard, NT Integumentary: no obvious rash Neurologic: AO, able to move extremities Ext: no edema Hemodialysis access: R arm AVG
[2022-07-30] MEDS ORDERED: EPOETIN ALFA-EPBX 10,000 UNIT/1 ML VIAL SUB-Q PRN (17:00)
[2022-07-30 21:09] LABS: Hepatitis B Surface Antigen Non-Reactive (Negative); Hepatitis C Virus Antibody Non-Reactive (NonReactive)
[2022-07-31] MEDS: INSULIN LISPRO 100 UNIT/ML SUB-Q SCH ×5 (00:10→23:07)
[2022-07-31] MEDS: cloNIDine 0.1 MG TAB PO SCH ×4 (01:14→21:23)
[2022-07-31] MEDS: hydrALAZINE 25 MG TAB PO SCH ×3 (06:49→21:23)
[2022-07-31] MEDS: MORPHINE 2 MG/1 ML INJ IV PRN ×3 (06:50→22:58)
--- NOTE | 2022-07-31 09:24 | Progress Note ---
Assessment and Plan Assessment and plan: -- ACS (acute coronary syndrome) Admit the patient to the medical telemetry. Aspirin 81 mg p.o. daily. Eliquis 2.5 mg p.o. twice a day. Nitroglycerin as needed. Lipitor 40 mg p.o. daily. Serial cardiac enzymes. Echocardiogram. Cardiology evaluation -- End stage renal disease on dialysis Nephrology consulted Hemodialysis per schedule, avoid nephrotoxins Renal dosing of medications, closely monitor --Elevated troponin In the setting of end-stage renal disease, troponin probably is nonspecific However patient has multiple risk factors need to rule out acute coronary syndrome Follow cardiology evaluation recommendations, follow echocardiogram and LV ejection fraction --Paroxysmal atrial fibrillation flutter episodes on the monitor Converted back to sinus rhythm Patient is on amiodarone, carvedilol, cardiology DC'd amiodarone Started on sotalol, closely monitor -Atrial fibrillation; rate controlled Amiodarone 200 mg p.o. twice daily. Continue beta-blockers, Cardiology following chronic anticoagulation with Eliquis, follow echocardiogram findings -- CHF (congestive heart failure) unknown ejection fraction Fluid restriction. Daily weight. Maintain input output. Echocardiogram. Continue home medication. Cardiology evaluation LVEF 50 to 55%[from cardiology notes in the past] --COPD (chronic obstructive pulmonary disease) chronic Oxygen via nasal catheter per minute. DuoNeb via nebulizer every 4 hours. Albuterol via nebulizer every 4 hours as needed --Hypertension moderate control Amlodipine 10 mg p.o. daily. Coreg 25 mg p.o. twice daily. Clonidine 0.1 mg p.o. every 8 hours As needed hydralazine --Hyperthyroidism Methimazole 10 mg p.o. 3 times daily. 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 --T2DM (type 2 diabetes mellitus) Accu-Chek every 6 hours with Humalog moderate dose coverage. Diabetic education. Continue home medication --Tobacco abuse We will counseled the patient regarding quitting smoking. We put the patient on nicotine patch Smoking cessation counseling; --DVT prophylaxis Eliquis 2.5 mg p.o. twice daily for DVT prophylaxis. Protonix 40 mg p.o. daily for GI prophylaxis. Patient is a full code Closely monitor the patient and adjust management as needed Plan of care reviewed with the patient and her nurse Cardiology evaluation and recommendations noted and appreciated 07/31/2022; this morning patient went into paroxysmal A. fib flutter Later converted to sinus rhythm, patient did not have any symptoms Patient was on amiodarone ,cardiology discontinued amiodarone and started sotalol History Interval history: I have seen and examined the patient at the bedside Patient's chart and medications reviewed Overnight and this morning events reviewed Patient had paroxysmal A. fib/flutter on the monitor Patient did not have any symptoms of chest pain, shortness of breath or palpitations Vital signs reviewed Hospitalist Physical - Constitutional Vitals: Temp Pulse Resp BP Pulse Ox 97.5 F L 70 17 130/68 100 07/31/22 05:39 07/31/22 06:50 07/31/22 07:20 07/31/22 06:50 07/31/22 08:53 General appearance: Present: no acute distress, well-nourished - EENT Eyes: Present: PERRL, EOM intact - Neck Neck: Present: supple, normal ROM - Respiratory Respiratory effort: normal Respiratory: bilateral: diminished, negative: rales, rhonchi, wheezing - Cardiovascular Rhythm: regular Heart Sounds: Present: S1 & S2 - Extremities Extremities: no ischemia, No edema - Abdominal General gastrointestinal: soft, non-tender, non-distended, normal bowel sounds - Integumentary Integumentary: Present: clear, warm - Psychiatric Psychiatric: appropriate mood/affect, cooperative - Neurologic Neurologic: CNII-XII intact, moves all extremities HEART Score - HEART Score EKG: Non-specific Age: > 65 Risk factors: > 3 risk factors or hx of atherosclerotic disease Troponin: Troponin T 0.089 ng/mL (0.00-0.029) H 07/30/22 03:52 Troponin: 1-3x normal limit Results - Labs CBC & Chem 7: 08/01/22 04:23 08/01/22 04:23 Labs: Laboratory Last Values WBC 11.6 K/mm3 (4.5-11.0) H 07/30/22 04:00 RBC 2.98 M/mm3 (3.65-5.03) L 07/30/22 04:00 Hgb 9.2 gm/dl (10.1-14.3) L 07/30/22 04:00 Hct 29.2 % (30.3-42.9) L 07/30/22 04:00 MCV 98 fl (79-97) H 07/30/22 04:00 MCH 31 pg (28-32) 07/30/22 04:00 MCHC 32 % (30-34) 07/30/22 04:00 RDW 19.6 % (13.2-15.2) H 07/30/22 04:00 Plt Count 192 K/mm3 (140-440) 07/30/22 04:00 Lymph % (Auto) 15.9 % (13.4-35.0) 07/30/22 04:00 [place] % (Auto) 6.9 % (0.0-7.3) 07/30/22 04:00 Eos % (Auto) 0.5 % (0.0-4.3) 07/30/22 04:00 Baso % (Auto) 0.9 % (0.0-1.8) 07/30/22 04:00 Lymph # (Auto) 1.8 K/mm3 (1.2-5.4) 07/30/22 04:00 [place] # (Auto) 0.8 K/mm3 (0.0-0.8) 07/30/22 04:00 Eos # (Auto) 0.1 K/mm3 (0.0-0.4) 07/30/22 04:00 Baso # (Auto) 0.1 K/mm3 (0.0-0.1) 07/30/22 04:00 Seg Neutrophils % 75.8 % (40.0-70.0) H 07/30/22 04:00 Seg Neutrophils # 8.8 K/mm3 (1.8-7.7) H 07/30/22 04:00 Sodium 139 mmol/L (137-145) 07/30/22 04:00 Potassium 4.7 mmol/L (3.6-5.0) 07/30/22 04:00 Chloride 98.9 mmol/L (98-107) 07/30/22 04:00 Carbon Dioxide 24 mmol/L (22-30) 07/30/22 04:00 Anion Gap 21 mmol/L 07/30/22 04:00 BUN 38 mg/dL (7-17) H 07/30/22 04:00 Creatinine 4.5 mg/dL (0.6-1.2) H 07/30/22 04:00 Estimated GFR 12 ml/min 07/30/22 04:00 BUN/Creatinine Ratio 8 % 07/30/22 04:00 Glucose 85 mg/dL (65-100) 07/30/22 04:00 POC Glucose 112 mg/dL (70-105) H 07/31/22 06:47 Calcium 9.1 mg/dL (8.4-10.2) 07/30/22 04:00 Total Bilirubin 1.20 mg/dL (0.1-1.2) 07/29/22 17:58 AST 21 units/L (5-40) 07/29/22 17:58 ALT 9 units/L (7-56) 07/29/22 17:58 Alkaline Phosphatase 69 units/L (35-129) 07/29/22 17:58 Troponin T 0.089 ng/mL (0.00-0.029) H 07/30/22 03:52 Total Protein 6.4 g/dL (6.3-8.2) 07/29/22 17:58 Albumin 4.4 g/dL (3.9-5) 07/29/22 17:58 Albumin/Globulin Ratio 2.2 % 07/29/22 17:58 Triglycerides 91 mg/dL (2-149) 07/30/22 03:52 Cholesterol 144 mg/dL (50-199) 07/30/22 03:52 LDL Cholesterol Direct 67 mg/dL (50-130) 07/30/22 03:52 HDL Cholesterol 65 mg/dL (40-59) H 07/30/22 03:52 Cholesterol/HDL Ratio 2.21 % 07/30/22 03:52 Hepatitis A IgM Ab Non-reactive (NonReactive) 07/30/22 15:40 Hep Bs Antigen Non-reactive (Negative) 07/30/22 15:40 Hep B Core IgM Ab Non-reactive (NonReactive) 07/30/22 15:40 Hepatitis C Antibody Non-reactive (NonReactive) 07/30/22 15:40 [place]/IV: Voiding Method External Female Catheter Active Medications - Current Medications Current Medications: Generic Name Dose Route Start Last Admin Trade Name Freq PRN Reason Stop Dose Admin Acetaminophen 650 mg 07/29/22 21:50 Acetaminophen 325 Mg Tab PO Q6H PRN Pain, Mild (1-3) Amiodarone HCl 200 mg 07/29/22 22:00 07/30/22 21:25 Amiodarone 200 Mg Tab PO 200 mg BID [facility] Administration Amlodipine Besylate 10 mg 07/30/22 10:00 07/30/22 12:10 Amlodipine 10 Mg Tab PO Not Given DAILY [facility] Apixaban 2.5 mg 07/30/22 10:00 07/30/22 21:25 Apixaban 2.5 Mg Tab PO 2.5 mg Q12HR [facility] Administration Aspirin 81 mg 07/30/22 10:00 07/30/22 12:18 Aspirin Ec 81 Mg Tab PO 81 mg QDAY [facility] Administration Atorvastatin Calcium 40 mg 07/29/22 22:00 07/30/22 21:25 Atorvastatin 40 Mg Tab PO 40 mg QHS [facility] Administration Carvedilol 25 mg 07/29/22 22:00 07/30/22 18:34 Carvedilol 25 Mg Tab PO Not Given BID@0800,1700 [facility] Clonidine HCl 0.1 mg 07/29/22 22:00 07/31/22 06:50 Clonidine 0.1 Mg Tab PO 0.1 mg Q8H [facility] Administration Dextrose 0 ml 07/29/22 21:50 Dextrose 50% In Water (25gm) 50 Ml Syringe IV Q30MIN PRN Hypoglycemia Protocol Epoetin Heladio-epbx 20,000 unit 07/30/22 17:00 07/30/22 18:00 Epoetin Heladio-Epbx 10,000 Unit/1 Ml Vial SUB-Q 20,000 unit KARLENE PRN Administration HEMODIALYSIS Gabapentin 100 mg 07/29/22 22:00 07/30/22 21:25 Gabapentin 100 Mg Cap PO 100 mg BID [facility] Administration Heparin Sodium (Porcine) 3,000 unit 07/30/22 11:45 Heparin 10,000 Units/10 Ml Vial IV KARLENE PRN hemodialysis Hydralazine HCl 50 mg 07/29/22 22:00 07/31/22 06:49 Hydralazine 25 Mg Tab PO 50 mg Q8HR [facility] Administration Sodium Chloride 100 mls @ 999 mls/hr 07/30/22 11:45 Nacl 0.9% IV KARLENE PRN Hypotension Insulin Human Lispro 0 unit 07/30/22 00:00 07/31/22 07:06 Insulin Lispro 100 Unit/Ml SUB-Q Not Given Q6HR [facility] Protocol Isosorbide Mononitrate 60 mg 07/30/22 10:00 07/30/22 12:17 Isosorbide Mononitrate Er 60 Mg Tab PO 60 mg QDAY [facility] Administration Levalbuterol HCl 1.25 mg 07/29/22 23:00 Levalbuterol 1.25 Mg/3 Ml Neb IH Q6HRT PRN wheezing Losartan Potassium 50 mg 07/30/22 10:00 07/30/22 12:18 Losartan 50 Mg Tab PO 50 mg QDAY [facility] Administration Methimazole 10 mg 07/30/22 08:00 07/30/22 21:26 Methimazole 5 Mg Tab PO 10 mg TID [facility] Administration Morphine Sulfate 2 mg 07/29/22 21:50 07/31/22 06:50 Morphine 2 Mg/1 Ml Inj IV 2 mg Q5MIN PRN Administration Chest Pain unrelieved by NTG Nicotine 14 mg 07/30/22 10:00 07/30/22 12:19 Nicotine 14 Mg/24 Hr Patch TD Not Given QDAY [facility] Nitroglycerin 0.4 mg 07/29/22 21:53 Nitroglycerin 0.4 Mg Tab Subl SL .Q5MIN PRN Chest Pain Pantoprazole Sodium 40 mg 07/30/22 10:00 07/30/22 12:19 Pantoprazole 40 Mg Tab PO Not Given QDAY [facility] Senna/Docusate Sodium 1 tab 07/30/22 10:00 07/30/22 12:17 Sennosides/Docusate Sodium 8.6/50 Mg Tab PO 1 tab DAILY [facility] Administration Sodium Chloride 10 ml 07/29/22 21:50 07/30/22 21:25 Sodium Chloride 0.9% 10 Ml Flush Syringe IV 10 ml PRN PRN Administration LINE FLUSH Tramadol HCl 50 mg 07/29/22 21:50 Tramadol 50 Mg Tab PO Q6H PRN Pain, Moderate (4-6) Nutrition/Malnutrition Assess - Dietary Evaluation Nutrition/Malnutrition Findings: Nutrition Notes Start: 07/30/22 10:53 Freq: Status: Active Protocol: Document 07/30/22 10:53 CM (Rec: 07/30/22 11:06 CM [id number]) Co-Sign 07/30/22 10:53 WW Nutrition Notes Need for Assessment generated from: MD Order,Education Initial or Follow up Assessment Current Diagnosis CKD (stage V CKD),COPD, Diabetes,Hypertension,Heart Failure,Stroke,Hyperlipidemia Other Pertinent Diagnosis GERD, ACS, hyperthyroidism Current Diet Renal Diet Labs/Tests 07/30: BUN 30 Cr 3.9 Pertinent Medications 07/30: Atorvastatin Humalog Height 5 ft 5 in Weight 54.43 kg Usual Body Weight 54.5 kg [place] Body Weight (kg) 56.81 BMI 20.0 Intake Prior to Admission Good Weight change and time frame No unintentional wt loss CALL [facility] PROFESSION[facility] per malnutrition screening tool assessment and patient. Weight Status Underweight Subjective/Other Information RD consult for diet education. Pt reported receiving diet education from dietitian at dialysis clinic - could not recall information provided. Provided verbal explanation and educational handouts regarding renal diet. Pt reported intermittent decreases in appetite and hadn 't eaten in 2 days CALL [facility]. Nutrition-focused physical examination performed indicating severe muscle wasting - mild malnutrition. Last BM reported was yesterday - denied diarrhea. No physical assessment available at this time. Percent of energy/protein needs met: Renal Diet provides 2072kcal/ 77g PRO q day (108%/100%) Burn Absent Trauma Absent GI Symptoms None Food Allergy No Skin Integrity/Comment N/A Minimum of two criteria No Muscle Mass Moderate Depletion (severe) Fluid Accumulation N/A Reduced Podiatrist Strength N/A (non-severe) Protein-Calorie Malnutrition N\A #2 Nutrition Diagnosis Food and nutrition-related knowledge deficit Etiology Lack of diet education retention As Evidenced by Signs and Symptoms Pt inability to recall information from previous diet education #1 Nutrition Diagnosis Malnutrition Comments: Mild malnutrition in setting of chronic illness Etiology ESRD on HD As Evidenced by Signs and Symptoms Severe muscle wasting (temples , anterior thigh, calves, patellar), underweight BMI for advanced age Is patient on ventilator? No Is Patient Ambulatory and/or Out of Bed Yes REE-([facility]-ambulatory/OOB) [ 1404.234 [id number]] Kcal/Kg value to use for calculation 35 Approximate Energy Requirements Using 1905 kcal/Kg Calculation Used for Recommendations Kcal/kg Additional Notes Protein: 1.2-1.5g/kg; 65-82g PRO q day Fluid: 500mL + total ouput or per MD Nutrition Intervention Change Diet Order: Continue renal diet Add Supplement/Snack (indicate name/kcal Nepro (Variety) BID /protein ) Provides kCal: 850 Provides Protein (gm) 38 Teaching Methods Discussion,Handout Response to Teaching Verbalize understanding Education Handouts Provided NCM - Potassium / Phosphorus Content of Foods / CKD Stage 3 -5 Nutrition Therapy Barriers to Learning No Barriers RD phone number provided Yes Patient aware of follow up options Yes Goal #1 Pt to consume >75% of estimated energy/protein needs through current diet order / supplementation Goal #2 Pt to maintain current wt status within 2.5% during LOS with exception of fluid loss/ retention Goal #3 Pt to retain and recall 2 pieces of information from diet education. Follow-Up By: 08/02/22 Additional Comments Monitor %PO intake, wt status, nutrition-related lab values, need for further diet education.
--- NOTE | 2022-07-31 09:27 | Electrocardiograph Report ---
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
[2022-07-31] MEDS: GABAPENTIN 100 MG CAP PO SCH ×2 (10:21→21:23)
[2022-07-31] MEDS: LOSARTAN 50 MG TAB PO SCH (10:21)
[2022-07-31] MEDS: amLODIPine 10 MG TAB PO SCH (10:21)
[2022-07-31] MEDS: ASPIRIN EC 81 MG TAB PO SCH (10:21)
[2022-07-31] MEDS: PANTOPRAZOLE 40 MG TAB PO SCH (10:21)
[2022-07-31] MEDS: SENNOSIDES/DOCUSATE SODIUM 8.6/50 MG TAB PO SCH (10:21)
[2022-07-31] MEDS: APIXABAN 2.5 MG TAB PO SCH ×2 (10:21→21:23)
[2022-07-31] MEDS: NICOTINE 14 MG/24 HR PATCH TD SCH (10:21)
[2022-07-31] MEDS: AMIODARONE 200 MG TAB PO SCH (10:21)
[2022-07-31] MEDS: carvediloL 25 MG TAB PO SCH ×2 (10:22→17:03)
[2022-07-31] MEDS: methIMAzole 5 MG TAB PO SCH ×3 (10:22→21:23)
--- NOTE | 2022-07-31 10:28 | Progress Note ---
Assessment and Plan - Patient Problems (1) Paroxysmal atrial fibrillation Current Visit: Yes Status: Acute Plan to address problem: Patient has recurrent admissions for palpitations due to paroxysms of atrial fibrillation. She currently has returned to his sinus rhythm. She is on amiodarone 200 mg p.o. twice daily. Due to recurrent failure of amiodarone to maintain sinus rhythm, I will discontinue this medication and instead place her on a trial of sotalol 80 mg twice daily. Subjective Date of service: 07/31/22 Principal diagnosis: Symptomatic atrial flutter fibrillation Interval history: Patient is comfortable, looks and feels well, no acute distress. No new cardiac events reported. She remains in stable sinus rhythm, on telemetry heart rate is 73. Objective Vital Signs Temp Pulse Resp BP BP Pulse Ox Pulse Ox 07/31/22 08:53 100 07/31/22 07:20 17 07/31/22 06:50 70 17 130/68 07/31/22 06:49 70 130/68 07/31/22 05:39 97.5 F L 70 17 130/68 100 07/31/22 04:00 71 07/30/22 23:00 99 07/30/22 22:00 82 07/30/22 21:25 69 127/71 07/30/22 21:20 97.7 F 69 18 127/71 100 07/30/22 20:15 70 07/30/22 19:00 98.2 F 69 20 156/82 100 07/30/22 18:30 69 143/79 07/30/22 18:15 69 143/80 07/30/22 18:00 69 142/78 07/30/22 17:45 69 145/80 07/30/22 17:30 69 148/76 07/30/22 17:15 69 156/87 07/30/22 17:00 69 140/79 07/30/22 16:45 69 138/67 07/30/22 16:30 69 153/75 07/30/22 16:15 69 144/78 07/30/22 16:00 69 141/84 07/30/22 15:45 69 147/79 07/30/22 15:30 69 141/76 07/30/22 15:15 98.2 F 69 20 141/75 100 07/30/22 11:55 94 - Physical Examination General: No Apparent Distress HEENT: Positive: PERRL Neck: Positive: neck supple Cardiac: Positive: Reg Rate and Rhythm Lungs: Positive: Decreased Breath Sounds Neuro: Positive: Grossly Intact Abdomen: Positive: Soft Skin: Positive: Clear Extremities: Absent: edema
--- NOTE | 2022-07-31 11:21 | Progress Note ---
Assessment and Plan 1. ESRD: Patient is on maintenance hemodialysis, TTS schedule. Hemodialysis: 07/30. 2. FEN: UF with HD as tolerated. Monitor lytes and volume status. 3. Chest pain // H/o CAD s/p PCI: Seen by Cards. Monitor. 4. Paroxysmal A.fib with RVR: SR now. Sotalol per Cards. Monitor. 5. Chronic HFpEF: Volume control thru HD. Fluid restriction, monitor I/O. 6. H/o COPD: Nebs and O2 as needed. 7. Hypertension: Volume control with HD. Adjust BP meds as needed. Monitor BP. 8. Normochromic anemia, POA: Chronic. Likely 2/2 ESRD. Epogen as needed. Subjective: Patient was seen and examined at the bedside. Examination: General appearance: well-developed, appears stated age, no distress HEENT: atraumatic, ANA Neck: trachea midline Respiratory: ctab Heart: S1S2, no murmur Abdomen: soft, bowel sounds heard, NT Integumentary: no obvious rash Neurologic: AO, able to move extremities Ext: no edema Hemodialysis access: R arm AVG Subjective Date of service: 07/31/22 Principal diagnosis: Symptomatic atrial flutter fibrillation Objective - Vital Signs Vital signs: Vital Signs - 12hr 07/31/22 07/31/22 07/31/22 04:00 05:39 06:49 Temperature 97.5 F L Pulse Rate 71 70 70 Respiratory 17 Rate Blood Pressure 130/68 Blood Pressure 130/68 [Left] O2 Sat by Pulse 100 Oximetry 07/31/22 07/31/22 07/31/22 06:50 07:20 08:53 Temperature Pulse Rate 70 Respiratory 17 17 Rate Blood Pressure 130/68 Blood Pressure [Left] O2 Sat by Pulse 100 Oximetry - Lab 07/30/22 04:00 07/30/22 04:00 Most recent lab results Calcium 9.1 mg/dL (8.4-10.2) 07/30/22 04:00 Medications & Allergies - Medications Allergies/Adverse Reactions: Allergies Iodinated Contrast Media Adverse Reaction (Intermediate, Verified 07/29/22 16:56) Swelling apple Adverse Reaction (Verified 07/29/22 16:56) Hives yellow and green apples. can eat red. shell fish Allergy (Uncoded 07/29/22 16:56) Swelling allergic to seafood except blue crab Home Medications: Home Medications Medication Instructions Recorded Confirmed Last Taken Type Gabapentin 100 mg PO BID 03/02/22 07/19/22 Unknown History Pantoprazole [Protonix TAB] 40 mg PO QDAY 03/02/22 07/19/22 03/02/22 10:00 History methIMAzole [Methimazole] 10 mg PO TID 03/10/22 07/19/22 Unknown History Sennosides/Docusate [Senokot S] 1 tab PO DAILY #30 tablet 03/12/22 07/19/22 Unknown Rx Nitroglycerin [Nitrostat] 0.4 mg SL .Q5MIN PRN 30 Days #30 04/02/22 07/19/22 Unknown Rx tablet Apixaban [Eliquis] 2.5 mg PO Q12HR tablet 05/23/22 07/19/22 Unknown Rx Aspirin EC [Halfprin EC] 81 mg PO QDAY tablet 05/23/22 07/19/22 Unknown Rx ISOSORBIDE MONOnitrate [Imdur ER] 60 mg PO QDAY tablet 05/23/22 07/19/22 Unknown Rx Losartan [Cozaar] 50 mg PO QDAY tablet 05/23/22 07/19/22 Unknown Rx Metoprolol [Lopressor TAB] 100 mg PO BID #60 tablet 05/23/22 07/19/22 Unknown Rx hydrALAZINE [Apresoline TAB] 50 mg PO Q8HR tablet 05/23/22 07/19/22 Unknown Rx Amiodarone [Cordarone 200 MG TAB] 200 mg PO BID 30 Days #60 tablet 07/12/22 07/19/22 Unknown Rx Levalbuterol Tartrate 2 puff INHALATION Q6HR PRN 07/12/22 07/19/22 Unknown History [Levalbuterol Tartrate Hfa] amLODIPine 10 mg PO DAILY 07/12/22 07/19/22 Unknown History carvediloL [Coreg] 25 mg PO BID 07/12/22 07/19/22 Unknown History cloNIDine [Catapres] 0.1 mg PO Q8H 07/12/22 07/19/22 Unknown History HYDROcodone/APAP 5-325 [Julian 1 - 2 each PO Q6HR PRN #10 tablet 07/25/22 Unknown Rx 5/325] Active Medications: Generic Name Dose Route Start Last Admin Trade Name Freq PRN Reason Stop Dose Admin Acetaminophen 650 mg 07/29/22 21:50 Acetaminophen 325 Mg Tab PO Q6H PRN Pain, Mild (1-3) Amlodipine Besylate 10 mg 07/30/22 10:00 07/31/22 10:21 Amlodipine 10 Mg Tab PO 10 mg DAILY [facility] Administration Apixaban 2.5 mg 07/30/22 10:00 07/31/22 10:21 Apixaban 2.5 Mg Tab PO 2.5 mg Q12HR [facility] Administration Aspirin 81 mg 07/30/22 10:00 07/31/22 10:21 Aspirin Ec 81 Mg Tab PO 81 mg QDAY [facility] Administration Atorvastatin Calcium 40 mg 07/29/22 22:00 07/30/22 21:25 Atorvastatin 40 Mg Tab PO 40 mg QHS [facility] Administration Carvedilol 25 mg 07/29/22 22:00 07/31/22 10:22 Carvedilol 25 Mg Tab PO 25 mg BID@0800,1700 [facility] Administration Clonidine HCl 0.1 mg 07/29/22 22:00 07/31/22 06:50 Clonidine 0.1 Mg Tab PO 0.1 mg Q8H [facility] Administration Dextrose 0 ml 07/29/22 21:50 Dextrose 50% In Water (25gm) 50 Ml Syringe IV Q30MIN PRN Hypoglycemia Protocol Epoetin Heladio-epbx 20,000 unit 07/30/22 17:00 07/30/22 18:00 Epoetin Heladio-Epbx 10,000 Unit/1 Ml Vial SUB-Q 20,000 unit KARLENE PRN Administration HEMODIALYSIS Gabapentin 100 mg 07/29/22 22:00 07/31/22 10:21 Gabapentin 100 Mg Cap PO 100 mg BID [facility] Administration Heparin Sodium (Porcine) 3,000 unit 07/30/22 11:45 Heparin 10,000 Units/10 Ml Vial IV KARLENE PRN hemodialysis Hydralazine HCl 50 mg 07/29/22 22:00 07/31/22 06:49 Hydralazine 25 Mg Tab PO 50 mg Q8HR [facility] Administration Sodium Chloride 100 mls @ 999 mls/hr 07/30/22 11:45 Nacl 0.9% IV KARLENE PRN Hypotension Insulin Human Lispro 0 unit 07/30/22 00:00 07/31/22 07:06 Insulin Lispro 100 Unit/Ml SUB-Q Not Given Q6HR [facility] Protocol Isosorbide Mononitrate 60 mg 07/30/22 10:00 07/31/22 10:21 Isosorbide Mononitrate Er 60 Mg Tab PO 60 mg QDAY [facility] Administration Levalbuterol HCl 1.25 mg 07/29/22 23:00 Levalbuterol 1.25 Mg/3 Ml Neb IH Q6HRT PRN wheezing Losartan Potassium 50 mg 07/30/22 10:00 07/31/22 10:21 Losartan 50 Mg Tab PO 50 mg QDAY [facility] Administration Methimazole 10 mg 07/30/22 08:00 07/31/22 10:22 Methimazole 5 Mg Tab PO 10 mg TID [facility] Administration Morphine Sulfate 2 mg 07/29/22 21:50 07/31/22 06:50 Morphine 2 Mg/1 Ml Inj IV 2 mg Q5MIN PRN Administration Chest Pain unrelieved by NTG Nicotine 14 mg 07/30/22 10:00 07/31/22 10:21 Nicotine 14 Mg/24 Hr Patch TD 14 mg QDAY [facility] Administration Nitroglycerin 0.4 mg 07/29/22 21:53 Nitroglycerin 0.4 Mg Tab Subl SL .Q5MIN PRN Chest Pain Pantoprazole Sodium 40 mg 07/30/22 10:00 07/31/22 10:21 Pantoprazole 40 Mg Tab PO 40 mg QDAY [facility] Administration Senna/Docusate Sodium 1 tab 07/30/22 10:00 07/31/22 10:21 Sennosides/Docusate Sodium 8.6/50 Mg Tab PO 1 tab DAILY [facility] Administration Sodium Chloride 10 ml 07/29/22 21:50 07/30/22 21:25 Sodium Chloride 0.9% 10 Ml Flush Syringe IV 10 ml PRN PRN Administration LINE FLUSH Sotalol HCl 80 mg 07/31/22 11:00 Sotalol 80 Mg Tab PO Q12HR [facility] Tramadol HCl 50 mg 07/29/22 21:50 Tramadol 50 Mg Tab PO Q6H PRN Pain, Moderate (4-6)
[2022-07-31] MEDS: traMADol 50 MG TAB PO PRN (14:22)
[2022-08-01] MEDS: MORPHINE 2 MG/1 ML INJ IV PRN (03:52)
[2022-08-01 05:39] LABS: Basophils # (Auto) 0.1 K/mm3 (0.0-0.1); Basophils % (Auto) 0.6 % (0.0-1.8); Eosinophils # (Auto) 0.3 K/mm3 (0.0-0.4); Eosinophils % (Auto) 2.8 % (0.0-4.3); Hematocrit 26.7 % (30.3-42.9); Hemoglobin 8.7 gm/dl (10.1-14.3); Lymphocytes # (Auto) 1.6 K/mm3 (1.2-5.4); Lymphocytes % (Auto) 17.6 % (13.4-35.0); Mean Corpuscular HGB Conc 33 % (30-34); Mean Corpuscular Volume 96 fl (79-97); Monocytes # (Auto) 0.7 K/mm3 (0.0-0.8); Monocytes % (Auto) 7.9 % (0.0-7.3); Platelet Count 188 K/mm3 (140-440); Red Blood Count 2.78 M/mm3 (3.65-5.03); Red Cell Distribution Width 19.9 % (13.2-15.2)
[2022-08-01 06:09] LABS: Calcium 8.5 mg/dL (8.4-10.2)
[2022-08-01] MEDS: hydrALAZINE 25 MG TAB PO SCH ×3 (06:32→22:15)
[2022-08-01] MEDS: cloNIDine 0.1 MG TAB PO SCH ×3 (06:34→22:16)
[2022-08-01] MEDS: INSULIN LISPRO 100 UNIT/ML SUB-Q SCH ×3 (06:35→20:04)
[2022-08-01] MEDS: ASPIRIN EC 81 MG TAB PO SCH (09:03)
[2022-08-01] MEDS: NICOTINE 14 MG/24 HR PATCH TD SCH (09:03)
[2022-08-01] MEDS: GABAPENTIN 100 MG CAP PO SCH ×2 (09:03→22:16)
[2022-08-01] MEDS: SENNOSIDES/DOCUSATE SODIUM 8.6/50 MG TAB PO SCH (09:03)
[2022-08-01] MEDS: PANTOPRAZOLE 40 MG TAB PO SCH (09:03)
[2022-08-01] MEDS: carvediloL 25 MG TAB PO SCH ×2 (09:04→16:24)
[2022-08-01] MEDS: methIMAzole 5 MG TAB PO SCH ×3 (09:04→22:15)
[2022-08-01] MEDS: APIXABAN 2.5 MG TAB PO SCH ×2 (09:04→22:16)
[2022-08-01] MEDS: LOSARTAN 50 MG TAB PO SCH (09:05)
[2022-08-01] MEDS: amLODIPine 10 MG TAB PO SCH (09:05)
--- NOTE | 2022-08-01 09:20 | Progress Note ---
Assessment and Plan Assessment and plan: -- ACS (acute coronary syndrome) Admit the patient to the medical telemetry. Aspirin 81 mg p.o. daily. Eliquis 2.5 mg p.o. twice a day. Nitroglycerin as needed. Lipitor 40 mg p.o. daily. Serial cardiac enzymes. Echocardiogram. Cardiology evaluation -- End stage renal disease on dialysis Nephrology consulted Hemodialysis per schedule, avoid nephrotoxins Renal dosing of medications, closely monitor --Elevated troponin In the setting of end-stage renal disease, troponin probably is nonspecific However patient has multiple risk factors need to rule out acute coronary syndrome Follow cardiology evaluation recommendations, follow echocardiogram and LV ejection fraction --Paroxysmal atrial fibrillation flutter episodes on the monitor Converted back to sinus rhythm Cardiology changed amiodarone to sotalol Rate controlled, sinus rhythm -Atrial fibrillation; rate controlled Cashier Assistant DC'd 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 Continue beta-blockers, Cardiology following chronic anticoagulation with Eliquis, follow echocardiogram findings -- CHF (congestive heart failure) unknown ejection fraction Fluid restriction. Daily weight. Maintain input output. Echocardiogram. Continue home medication. Cardiology evaluation LVEF 50 to 55%[from cardiology notes in the past] --COPD (chronic obstructive pulmonary disease) chronic Oxygen via nasal catheter per minute. DuoNeb via nebulizer every 4 hours. Albuterol via nebulizer every 4 hours as needed --Hypertension moderate control Amlodipine 10 mg p.o. daily. Coreg 25 mg p.o. twice daily. Clonidine 0.1 mg p.o. every 8 hours As needed hydralazine --Hyperthyroidism Methimazole 10 mg p.o. 3 times daily. Outpatient follow-up with health services manager. --T2DM (type 2 diabetes mellitus) Accu-Chek every 6 hours with Humalog moderate dose coverage. Diabetic education. Continue home medication --Tobacco abuse We will counseled the patient regarding quitting smoking. We put the patient on nicotine patch Smoking cessation counseling; --DVT prophylaxis Eliquis 2.5 mg p.o. twice daily for DVT prophylaxis. Protonix 40 mg p.o. daily for GI prophylaxis. Patient is a full code Closely monitor the patient and adjust management as needed Plan of care reviewed with the patient and her nurse Cardiology evaluation and recommendations noted and appreciated 07/31/2022; this morning patient went into paroxysmal A. fib flutter Later converted to sinus rhythm, patient did not have any symptoms Cardiology changed amiodarone to sotalol with significant improvement History Interval history: I have seen and examined the patient at the bedside Patient's chart and medications reviewed Patient feels slightly better Vital signs noted Hospitalist Physical - Constitutional Vitals: Temp Pulse Resp BP Pulse Ox 97.8 F 71 18 112/71 99 08/01/22 07:47 08/01/22 07:47 08/01/22 07:47 08/01/22 07:47 08/01/22 08:54 General appearance: Present: no acute distress, well-nourished - EENT Eyes: Present: PERRL, EOM intact - Neck Neck: Present: supple, normal ROM - Respiratory Respiratory effort: normal Respiratory: bilateral: diminished, negative: rales, rhonchi, wheezing - Cardiovascular Rhythm: regular Heart Sounds: Present: S1 & S2 - Extremities Extremities: no ischemia, No edema - Abdominal General gastrointestinal: soft, non-tender, non-distended, normal bowel sounds - Integumentary Integumentary: Present: clear, warm - Psychiatric Psychiatric: appropriate mood/affect, cooperative - Neurologic Neurologic: moves all extremities HEART Score - HEART Score EKG: Non-specific Age: > 65 Risk factors: > 3 risk factors or hx of atherosclerotic disease Troponin: Troponin T 0.089 ng/mL (0.00-0.029) H 07/30/22 03:52 Troponin: 1-3x normal limit Results - Labs CBC & Chem 7: 08/01/22 04:23 08/01/22 04:23 Labs: Laboratory Last Values WBC 9.2 K/mm3 (4.5-11.0) 08/01/22 04:23 RBC 2.78 M/mm3 (3.65-5.03) L 08/01/22 04:23 Hgb 8.7 gm/dl (10.1-14.3) L 08/01/22 04:23 Hct 26.7 % (30.3-42.9) L 08/01/22 04:23 MCV 96 fl (79-97) 08/01/22 04:23 MCH 31 pg (28-32) 08/01/22 04:23 MCHC 33 % (30-34) 08/01/22 04:23 RDW 19.9 % (13.2-15.2) H 08/01/22 04:23 Plt Count 188 K/mm3 (140-440) 08/01/22 04:23 Lymph % (Auto) 17.6 % (13.4-35.0) 08/01/22 04:23 [place] % (Auto) 7.9 % (0.0-7.3) H 08/01/22 04:23 Eos % (Auto) 2.8 % (0.0-4.3) 08/01/22 04:23 Baso % (Auto) 0.6 % (0.0-1.8) 08/01/22 04:23 Lymph # (Auto) 1.6 K/mm3 (1.2-5.4) 08/01/22 04:23 [place] # (Auto) 0.7 K/mm3 (0.0-0.8) 08/01/22 04:23 Eos # (Auto) 0.3 K/mm3 (0.0-0.4) 08/01/22 04:23 Baso # (Auto) 0.1 K/mm3 (0.0-0.1) 08/01/22 04:23 Seg Neutrophils % 71.1 % (40.0-70.0) H 08/01/22 04:23 Seg Neutrophils # 6.5 K/mm3 (1.8-7.7) 08/01/22 04:23 Sodium 132 mmol/L (137-145) L D 08/01/22 04:23 Potassium 4.4 mmol/L (3.6-5.0) 08/01/22 04:23 Chloride 93.2 mmol/L (98-107) L 08/01/22 04:23 Carbon Dioxide 28 mmol/L (22-30) 08/01/22 04:23 Anion Gap 15 mmol/L 08/01/22 04:23 BUN 29 mg/dL (7-17) H 08/01/22 04:23 Creatinine 4.0 mg/dL (0.6-1.2) H 08/01/22 04:23 Estimated GFR 14 ml/min 08/01/22 04:23 BUN/Creatinine Ratio 7 % 08/01/22 04:23 Glucose 100 mg/dL (65-100) 08/01/22 04:23 POC Glucose 107 mg/dL (70-105) H 08/01/22 05:36 Calcium 8.5 mg/dL (8.4-10.2) 08/01/22 04:23 Total Bilirubin 1.20 mg/dL (0.1-1.2) 07/29/22 17:58 AST 21 units/L (5-40) 07/29/22 17:58 ALT 9 units/L (7-56) 07/29/22 17:58 Alkaline Phosphatase 69 units/L (35-129) 07/29/22 17:58 Troponin T 0.089 ng/mL (0.00-0.029) H 07/30/22 03:52 Total Protein 6.4 g/dL (6.3-8.2) 07/29/22 17:58 Albumin 4.4 g/dL (3.9-5) 07/29/22 17:58 Albumin/Globulin Ratio 2.2 % 07/29/22 17:58 Triglycerides 91 mg/dL (2-149) 07/30/22 03:52 Cholesterol 144 mg/dL (50-199) 07/30/22 03:52 LDL Cholesterol Direct 67 mg/dL (50-130) 07/30/22 03:52 HDL Cholesterol 65 mg/dL (40-59) H 07/30/22 03:52 Cholesterol/HDL Ratio 2.21 % 07/30/22 03:52 Hepatitis A IgM Ab Non-reactive (NonReactive) 07/30/22 15:40 Hep Bs Antigen Non-reactive (Negative) 07/30/22 15:40 Hep B Core IgM Ab Non-reactive (NonReactive) 07/30/22 15:40 Hepatitis C Antibody Non-reactive (NonReactive) 07/30/22 15:40 [place]/IV: Voiding Method Toilet Active Medications - Current Medications Current Medications: Generic Name Dose Route Start Last Admin Trade Name Freq PRN Reason Stop Dose Admin Acetaminophen 650 mg 07/29/22 21:50 Acetaminophen 325 Mg Tab PO Q6H PRN Pain, Mild (1-3) Amlodipine Besylate 10 mg 07/30/22 10:00 08/01/22 09:05 Amlodipine 10 Mg Tab PO Not Given DAILY [facility] Apixaban 2.5 mg 07/30/22 10:00 08/01/22 09:04 Apixaban 2.5 Mg Tab PO 2.5 mg Q12HR [facility] Administration Aspirin 81 mg 07/30/22 10:00 08/01/22 09:03 Aspirin Ec 81 Mg Tab PO 81 mg QDAY [facility] Administration Atorvastatin Calcium 40 mg 07/29/22 22:00 07/31/22 21:23 Atorvastatin 40 Mg Tab PO 40 mg QHS [facility] Administration Carvedilol 25 mg 07/29/22 22:00 08/01/22 09:04 Carvedilol 25 Mg Tab PO Not Given BID@0800,1700 [facility] Clonidine HCl 0.1 mg 07/29/22 22:00 08/01/22 06:34 Clonidine 0.1 Mg Tab PO 0.1 mg Q8H [facility] Administration Dextrose 0 ml 07/29/22 21:50 Dextrose 50% In Water (25gm) 50 Ml Syringe IV Q30MIN PRN Hypoglycemia Protocol Epoetin Heladio-epbx 20,000 unit 07/30/22 17:00 07/30/22 18:00 Epoetin Heladio-Epbx 10,000 Unit/1 Ml Vial SUB-Q 20,000 unit KARLENE PRN Administration HEMODIALYSIS Gabapentin 100 mg 07/29/22 22:00 08/01/22 09:03 Gabapentin 100 Mg Cap PO 100 mg BID [facility] Administration Heparin Sodium (Porcine) 3,000 unit 07/30/22 11:45 Heparin 10,000 Units/10 Ml Vial IV KARLENE PRN hemodialysis Hydralazine HCl 50 mg 07/29/22 22:00 08/01/22 06:32 Hydralazine 25 Mg Tab PO 50 mg Q8HR [facility] Administration Sodium Chloride 100 mls @ 999 mls/hr 07/30/22 11:45 Nacl 0.9% IV KARLENE PRN Hypotension Insulin Human Lispro 0 unit 07/30/22 00:00 08/01/22 06:35 Insulin Lispro 100 Unit/Ml SUB-Q Not Given Q6HR [facility] Protocol Isosorbide Mononitrate 60 mg 07/30/22 10:00 08/01/22 09:05 Isosorbide Mononitrate Er 60 Mg Tab PO Not Given QDAY [facility] Levalbuterol HCl 1.25 mg 07/29/22 23:00 Levalbuterol 1.25 Mg/3 Ml Neb IH Q6HRT PRN wheezing Losartan Potassium 50 mg 07/30/22 10:00 08/01/22 09:05 Losartan 50 Mg Tab PO Not Given QDAY [facility] Methimazole 10 mg 07/30/22 08:00 08/01/22 09:04 Methimazole 5 Mg Tab PO 10 mg TID [facility] Administration Morphine Sulfate 2 mg 07/29/22 21:50 08/01/22 03:52 Morphine 2 Mg/1 Ml Inj IV 2 mg Q5MIN PRN Administration Chest Pain unrelieved by NTG Nicotine 14 mg 07/30/22 10:00 08/01/22 09:03 Nicotine 14 Mg/24 Hr Patch TD 14 mg QDAY [facility] Administration Nitroglycerin 0.4 mg 07/29/22 21:53 Nitroglycerin 0.4 Mg Tab Subl SL .Q5MIN PRN Chest Pain Pantoprazole Sodium 40 mg 07/30/22 10:00 08/01/22 09:03 Pantoprazole 40 Mg Tab PO 40 mg QDAY [facility] Administration Senna/Docusate Sodium 1 tab 07/30/22 10:00 08/01/22 09:03 Sennosides/Docusate Sodium 8.6/50 Mg Tab PO 1 tab DAILY [facility] Administration Sodium Chloride 10 ml 07/29/22 21:50 07/31/22 21:23 Sodium Chloride 0.9% 10 Ml Flush Syringe IV 10 ml PRN PRN Administration LINE FLUSH Sotalol HCl 80 mg 07/31/22 11:00 08/01/22 09:05 Sotalol 80 Mg Tab PO Not Given Q12HR [facility] Tramadol HCl 50 mg 07/29/22 21:50 07/31/22 14:22 Tramadol 50 Mg Tab PO 50 mg Q6H PRN Administration Pain, Moderate (4-6) Nutrition/Malnutrition Assess - Dietary Evaluation Nutrition/Malnutrition Findings: Nutrition Notes Start: 07/30/22 10:53 Freq: Status: Active Protocol: Document 07/30/22 10:53 CM (Rec: 07/30/22 11:06 CM [id number]) Co-Sign 07/30/22 10:53 WW Nutrition Notes Need for Assessment generated from: MD Order,Education Initial or Follow up Assessment Current Diagnosis CKD (stage V CKD),COPD, Diabetes,Hypertension,Heart Failure,Stroke,Hyperlipidemia Other Pertinent Diagnosis GERD, ACS, hyperthyroidism Current Diet Renal Diet Labs/Tests 07/30: BUN 30 Cr 3.9 Pertinent Medications 9/20: Atorvastatin Humalog Height 5 ft 5 in Weight 54.43 kg Usual Body Weight 54.5 kg [place] Body Weight (kg) 56.81 BMI 20.0 Intake Prior to Admission Good Weight change and time frame No unintentional wt loss UNDERWRITING ACCOUNT REPRESENTATIVE per malnutrition screening tool assessment and patient. Weight Status Underweight Subjective/Other Information RD consult for diet education. Pt reported receiving diet education from dietitian at dialysis clinic - could not recall information provided. Provided verbal explanation and educational handouts regarding renal diet. Pt reported intermittent decreases in appetite and hadn 't eaten in 2 days UNDERWRITING ACCOUNT REPRESENTATIVE. Nutrition-focused physical examination performed indicating severe muscle wasting - mild malnutrition. Last BM reported was yesterday - denied diarrhea. No physical assessment available at this time. Percent of energy/protein needs met: Renal Diet provides 2072kcal/ 77g PRO q day (108%/100%) Burn Absent Trauma Absent GI Symptoms None Food Allergy No Skin Integrity/Comment N/A Minimum of two criteria No Muscle Mass Moderate Depletion (severe) Fluid Accumulation N/A Reduced [place] [employer] Strength N/A (non-severe) Protein-Calorie Malnutrition N\A #2 Nutrition Diagnosis Food and nutrition-related knowledge deficit Etiology Lack of diet education retention As Evidenced by Signs and Symptoms Pt inability to recall information from previous diet education #1 Nutrition Diagnosis Malnutrition Comments: Mild malnutrition in setting of chronic illness Etiology ESRD on HD As Evidenced by Signs and Symptoms Severe muscle wasting (temples , anterior thigh, calves, patellar), underweight BMI for advanced age Is patient on ventilator? No Is Patient Ambulatory and/or Out of Bed Yes REE-([facility]-ambulatory/OOB) [ 1404.234 [id number]] Kcal/Kg value to use for calculation 35 Approximate Energy Requirements Using 1905 kcal/Kg Calculation Used for Recommendations Kcal/kg Additional Notes Protein: 1.2-1.5g/kg; 65-82g PRO q day Fluid: 500mL + total ouput or per MD Nutrition Intervention Change Diet Order: Continue renal diet Add Supplement/Snack (indicate name/kcal Nep[place] (Variety) BID /protein ) Provides kCal: 850 Provides Protein (gm) 38 Teaching Methods Discussion,Handout Response to Teaching Verbalize understanding Education Handouts Provided NCM - Potassium / Phosphorus Content of Foods / CKD Stage 3 -5 Nutrition Therapy Barriers to Learning No Barriers RD phone number provided Yes Patient aware of follow up options Yes Goal #1 Pt to consume >75% of estimated energy/protein needs through current diet order / supplementation Goal #2 Pt to maintain current wt status within 2.5% during LOS with exception of fluid loss/ retention Goal #3 Pt to retain and recall 2 pieces of information from diet education. Follow-Up By: 08/02/22 Additional Comments Monitor %PO intake, wt status, nutrition-related lab values, need for further diet education.
--- NOTE | 2022-08-01 10:18 | Progress Note ---
Assessment and Plan 1. ESRD: Patient is on maintenance hemodialysis, TTS schedule. Hemodialysis: 07/30, 08/01. 2. FEN: UF with HD as tolerated. Monitor lytes and volume status. 3. Paroxysmal A.fib with RVR: SR now. Sotalol per Cards. Monitor. 4. Chest pain // H/o CAD s/p PCI: Seen by Cards. Monitor. 5. Chronic HFpEF: Volume control thru HD. Fluid restriction, monitor I/O. 6. H/o COPD: Nebs and O2 as needed. 7. Hypertension: Volume control with HD. Adjust BP meds as needed. Monitor BP. 8. Normochromic anemia, POA: Chronic. Likely 2/2 ESRD. Epogen as needed. Subjective: Patient was seen and examined at the bedside. Examination: General appearance: well-developed, appears stated age, no distress HEENT: atraumatic, ANA Neck: trachea midline Respiratory: ctab Heart: S1S2, no murmur Abdomen: soft, bowel sounds heard, NT Integumentary: no obvious rash Neurologic: AO, able to move extremities Ext: no edema Hemodialysis access: R arm AVG Subjective Date of service: 08/01/22 Principal diagnosis: Symptomatic atrial flutter fibrillation Objective - Vital Signs Vital signs: Vital Signs - 12hr 07/31/22 08/01/22 08/01/22 23:05 03:42 07:47 Temperature 98.0 F 97.8 F Pulse Rate 70 70 71 Respiratory 18 18 18 Rate Blood Pressure 112/62 120/69 112/71 O2 Sat by Pulse 99 100 100 Oximetry 08/01/22 08:54 Temperature Pulse Rate Respiratory Rate Blood Pressure O2 Sat by Pulse 99 Oximetry - Lab 08/01/22 04:23 08/01/22 04:23 Most recent lab results Calcium 8.5 mg/dL (8.4-10.2) 08/01/22 04:23 Medications & Allergies - Medications Allergies/Adverse Reactions: Allergies Iodinated Contrast Media Adverse Reaction (Intermediate, Verified 07/29/22 16:56) Swelling apple Adverse Reaction (Verified 07/29/22 16:56) Hives yellow and green apples. can eat red. shell fish Allergy (Uncoded 07/29/22 16:56) Swelling allergic to seafood except blue crab Home Medications: Home Medications Medication Instructions Recorded Confirmed Last Taken Type Gabapentin 100 mg PO BID 03/02/22 07/19/22 Unknown History Pantoprazole [Protonix TAB] 40 mg PO QDAY 03/02/22 07/19/22 03/02/22 10:00 History methIMAzole [Methimazole] 10 mg PO TID 03/10/22 07/19/22 Unknown History Sennosides/Docusate [Senokot S] 1 tab PO DAILY #30 tablet 03/12/22 07/19/22 Unknown Rx Nitroglycerin [Nitrostat] 0.4 mg SL .Q5MIN PRN 30 Days #30 04/02/22 07/19/22 Unknown Rx tablet Apixaban [Eliquis] 2.5 mg PO Q12HR tablet 05/23/22 07/19/22 Unknown Rx Aspirin EC [Halfprin EC] 81 mg PO QDAY tablet 05/23/22 07/19/22 Unknown Rx ISOSORBIDE MONOnitrate [Imdur ER] 60 mg PO QDAY tablet 05/23/22 07/19/22 Unknown Rx Losartan [Cozaar] 50 mg PO QDAY tablet 05/23/22 07/19/22 Unknown Rx Metoprolol [Lopressor TAB] 100 mg PO BID #60 tablet 05/23/22 07/19/22 Unknown Rx hydrALAZINE [Apresoline TAB] 50 mg PO Q8HR tablet 05/23/22 07/19/22 Unknown Rx Amiodarone [Cordarone 200 MG TAB] 200 mg PO BID 30 Days #60 tablet 07/12/22 07/19/22 Unknown Rx Levalbuterol Tartrate 2 puff INHALATION Q6HR PRN 07/12/22 07/19/22 Unknown History [Levalbuterol Tartrate Hfa] amLODIPine 10 mg PO DAILY 07/12/22 07/19/22 Unknown History carvediloL [Coreg] 25 mg PO BID 07/12/22 07/19/22 Unknown History cloNIDine [Catapres] 0.1 mg PO Q8H 07/12/22 07/19/22 Unknown History HYDROcodone/APAP 5-325 [[place] 1 - 2 each PO Q6HR PRN #10 tablet 07/25/22 Unknown Rx 5/325] Active Medications: Generic Name Dose Route Start Last Admin Trade Name Freq PRN Reason Stop Dose Admin Acetaminophen 650 mg 07/29/22 21:50 Acetaminophen 325 Mg Tab PO Q6H PRN Pain, Mild (1-3) Amlodipine Besylate 10 mg 07/30/22 10:00 08/01/22 09:05 Amlodipine 10 Mg Tab PO Not Given DAILY [facility] Apixaban 2.5 mg 07/30/22 10:00 08/01/22 09:04 Apixaban 2.5 Mg Tab PO 2.5 mg Q12HR [facility] Administration Aspirin 81 mg 07/30/22 10:00 08/01/22 09:03 Aspirin Ec 81 Mg Tab PO 81 mg QDAY [facility] Administration Atorvastatin Calcium 40 mg 07/29/22 22:00 07/31/22 21:23 Atorvastatin 40 Mg Tab PO 40 mg QHS [facility] Administration Carvedilol 25 mg 07/29/22 22:00 08/01/22 09:04 Carvedilol 25 Mg Tab PO Not Given BID@0800,1700 [facility] Clonidine HCl 0.1 mg 07/29/22 22:00 08/01/22 06:34 Clonidine 0.1 Mg Tab PO 0.1 mg Q8H [facility] Administration Dextrose 0 ml 07/29/22 21:50 Dextrose 50% In Water (25gm) 50 Ml Syringe IV Q30MIN PRN Hypoglycemia Protocol Epoetin Heladio-epbx 20,000 unit 07/30/22 17:00 07/30/22 18:00 Epoetin Heladio-Epbx 10,000 Unit/1 Ml Vial SUB-Q 20,000 unit [facility] PRN Administration HEMODIALYSIS Gabapentin 100 mg 07/29/22 22:00 08/01/22 09:03 Gabapentin 100 Mg Cap PO 100 mg BID [facility] Administration Heparin Sodium (Porcine) 3,000 unit 07/30/22 11:45 Heparin 10,000 Units/10 Ml Vial IV KARLENE PRN hemodialysis Hydralazine HCl 50 mg 07/29/22 22:00 08/01/22 06:32 Hydralazine 25 Mg Tab PO 50 mg Q8HR [facility] Administration Sodium Chloride 100 mls @ 999 mls/hr 07/30/22 11:45 Nacl 0.9% IV [facility]LENE PRN Hypotension Insulin Human Lispro 0 unit 07/30/22 00:00 08/01/22 06:35 Insulin Lispro 100 Unit/Ml SUB-Q Not Given Q6HR [facility] Protocol Isosorbide Mononitrate 60 mg 07/30/22 10:00 08/01/22 09:05 Isosorbide Mononitrate Er 60 Mg Tab PO Not Given QDAY [facility] Levalbuterol HCl 1.25 mg 07/29/22 23:00 Levalbuterol 1.25 Mg/3 Ml Neb IH Q6HRT PRN wheezing Losartan Potassium 50 mg 07/30/22 10:00 08/01/22 09:05 Losartan 50 Mg Tab PO Not Given QDAY [facility] Methimazole 10 mg 07/30/22 08:00 08/01/22 09:04 Methimazole 5 Mg Tab PO 10 mg TID [facility] Administration Morphine Sulfate 2 mg 07/29/22 21:50 08/01/22 03:52 Morphine 2 Mg/1 Ml Inj IV 2 mg Q5MIN PRN Administration Chest Pain unrelieved by NTG Nicotine 14 mg 07/30/22 10:00 08/01/22 09:03 Nicotine 14 Mg/24 Hr Patch TD 14 mg QDAY [facility] Administration Nitroglycerin 0.4 mg 07/29/22 21:53 Nitroglycerin 0.4 Mg Tab Subl SL .Q5MIN PRN Chest Pain Pantoprazole Sodium 40 mg 07/30/22 10:00 08/01/22 09:03 Pantoprazole 40 Mg Tab PO 40 mg QDAY [facility] Administration Senna/Docusate Sodium 1 tab 07/30/22 10:00 08/01/22 09:03 Sennosides/Docusate Sodium 8.6/50 Mg Tab PO 1 tab DAILY [facility] Administration Sodium Chloride 10 ml 07/29/22 21:50 07/31/22 21:23 Sodium Chloride 0.9% 10 Ml Flush Syringe IV 10 ml PRN PRN Administration LINE FLUSH Sotalol HCl 80 mg 07/31/22 11:00 08/01/22 09:05 Sotalol 80 Mg Tab PO Not Given Q12HR [facility] Tramadol HCl 50 mg 07/29/22 21:50 07/31/22 14:22 Tramadol 50 Mg Tab PO 50 mg Q6H PRN Administration Pain, Moderate (4-6)
--- NOTE | 2022-08-01 12:48 | Progress Note ---
Assessment and Plan - Patient Problems (1) Paroxysmal atrial fibrillation Current Visit: Yes Status: Acute Plan to address problem: Patient has recurrent admissions for palpitations due to paroxysms of atrial fibrillation. We have switched antiarrhythmic therapy from amiodarone to sotalol. Subjective Date of service: 08/01/22 Principal diagnosis: Symptomatic atrial flutter fibrillation Interval history: Patient is comfortable, looks and feels well, no acute distress. No new cardiac events reported. Routine dialysis is scheduled for today. Objective Vital Signs Temp Pulse Pulse Resp BP BP Pulse Ox 08/01/22 12:42 18 3 L 08/01/22 11:45 69 115/51 08/01/22 11:30 70 123/63 08/01/22 11:15 70 124/63 08/01/22 11:00 71 121/65 08/01/22 10:45 69 123/68 08/01/22 10:30 69 115/66 08/01/22 10:15 68 125/66 08/01/22 10:00 98.2 F 69 20 112/63 08/01/22 08:54 99 08/01/22 07:47 97.8 F 71 18 112/71 100 08/01/22 03:42 98.0 F 70 18 120/69 100 07/31/22 23:05 70 18 112/62 99 07/31/22 22:00 71 18 100 07/31/22 21:02 98.3 F 70 18 95/63 100 07/31/22 15:10 98.2 F 70 18 104/54 100 Pulse Ox 08/01/22 12:42 08/01/22 11:45 08/01/22 11:30 08/01/22 11:15 08/01/22 11:00 08/01/22 10:45 08/01/22 10:30 08/01/22 10:15 08/01/22 10:00 100 08/01/22 08:54 08/01/22 07:47 08/01/22 03:42 07/31/22 23:05 07/31/22 22:00 07/31/22 21:02 07/31/22 15:10 - Physical Examination General: No Apparent Distress HEENT: Positive: PERRL Neck: Positive: neck supple Cardiac: Positive: Reg Rate and Rhythm Lungs: Positive: Decreased Breath Sounds Neuro: Positive: Grossly Intact Abdomen: Positive: Soft Skin: Positive: Clear Extremities: Absent: edema - Labs and Meds CBC 08/01/22 Range/Units 04:23 WBC 9.2 (4.5-11.0) K/mm3 RBC 2.78 L (3.65-5.03) M/mm3 Hgb 8.7 L (10.1-14.3) gm/dl Hct 26.7 L (30.3-42.9) % Plt Count 188 (140-440) K/mm3 Lymph # (Auto) 1.6 (1.2-5.4) K/mm3 [place] # (Auto) 0.7 (0.0-0.8) K/mm3 Eos # (Auto) 0.3 (0.0-0.4) K/mm3 Baso # (Auto) 0.1 (0.0-0.1) K/mm3 Comprehensive Metabolic Panel 08/01/22 Range/Units 04:23 Sodium 132 L D (137-145) mmol/L Potassium 4.4 (3.6-5.0) mmol/L Chloride 93.2 L (98-107) mmol/L Carbon Dioxide 28 (22-30) mmol/L BUN 29 H (7-17) mg/dL Creatinine 4.0 H (0.6-1.2) mg/dL Glucose 100 (65-100) mg/dL Calcium 8.5 (8.4-10.2) mg/dL
[2022-08-01] MEDS: traMADol 50 MG TAB PO PRN ×2 (16:24→22:10)
[2022-08-02] MEDS: INSULIN LISPRO 100 UNIT/ML SUB-Q SCH ×3 (01:04→13:20)
[2022-08-02] MEDS: cloNIDine 0.1 MG TAB PO SCH ×2 (05:57→14:23)
[2022-08-02] MEDS: hydrALAZINE 25 MG TAB PO SCH ×2 (05:57→14:21)
[2022-08-02] MEDS: traMADol 50 MG TAB PO PRN ×2 (05:57→12:40)
--- NOTE | 2022-08-02 08:44 | Progress Note ---
Assessment and Plan 1. ESRD: Patient is on maintenance hemodialysis, TTS schedule. Hemodialysis: 07/30, 08/01. 2. FEN: UF with HD as tolerated. Monitor lytes and volume status. 3. Paroxysmal A.fib with RVR: SR now. Sotalol per Cards. Monitor. 4. Chest pain // H/o CAD s/p PCI: Seen by Cards. Monitor. 5. Chronic HFpEF: Volume control thru HD. Fluid restriction, monitor I/O. 6. H/o COPD: Nebs and O2 as needed. 7. Hypertension: Volume control with HD. Adjust BP meds as needed. Monitor BP. 8. Normochromic anemia, POA: Chronic. Likely 2/2 ESRD. Epogen as needed. Subjective: Patient was seen and examined at the bedside. Doing better. Wants to go home. Examination: General appearance: well-developed, appears stated age, no distress HEENT: atraumatic, ANA Neck: trachea midline Respiratory: ctab Heart: S1S2, no murmur Abdomen: soft, bowel sounds heard, NT Integumentary: no obvious rash Neurologic: AO, able to move extremities Ext: no edema Hemodialysis access: R arm AVG Subjective Date of service: 08/02/22 Principal diagnosis: Symptomatic atrial flutter fibrillation Objective - Vital Signs Vital signs: Vital Signs - 12hr 08/01/22 08/02/22 08/02/22 22:00 00:53 03:10 Temperature 99.1 F 98.5 F Pulse Rate 71 73 Respiratory 18 18 19 Rate Blood Pressure 115/64 Blood Pressure 99/63 [Left] O2 Sat by Pulse 3 L 96 100 Oximetry - Lab 08/01/22 04:23 08/01/22 04:23 Most recent lab results Calcium 8.5 mg/dL (8.4-10.2) 08/01/22 04:23 Medications & Allergies - Medications Allergies/Adverse Reactions: Allergies Iodinated Contrast Media Adverse Reaction (Intermediate, Verified 07/29/22 16:56) Swelling apple Adverse Reaction (Verified 07/29/22 16:56) Hives yellow and green apples. can eat red. shell fish Allergy (Uncoded 07/29/22 16:56) Swelling allergic to seafood except blue crab Home Medications: Home Medications Medication Instructions Recorded Confirmed Last Taken Type Gabapentin 100 mg PO BID 03/02/22 07/19/22 Unknown History Pantoprazole [Protonix TAB] 40 mg PO QDAY 03/02/22 07/19/22 03/02/22 10:00 History methIMAzole [Methimazole] 10 mg PO TID 03/10/22 07/19/22 Unknown History Sennosides/Docusate [Senokot S] 1 tab PO DAILY #30 tablet 03/12/22 07/19/22 Unknown Rx Nitroglycerin [Nitrostat] 0.4 mg SL .Q5MIN PRN 30 Days #30 04/02/22 07/19/22 Unknown Rx tablet Apixaban [Eliquis] 2.5 mg PO Q12HR tablet 05/23/22 07/19/22 Unknown Rx Aspirin EC [Halfprin EC] 81 mg PO QDAY tablet 05/23/22 07/19/22 Unknown Rx ISOSORBIDE MONOnitrate [Imdur ER] 60 mg PO QDAY tablet 05/23/22 07/19/22 Unknown Rx Losartan [Cozaar] 50 mg PO QDAY tablet 05/23/22 07/19/22 Unknown Rx hydrALAZINE [Apresoline TAB] 50 mg PO Q8HR tablet 05/23/22 07/19/22 Unknown Rx Levalbuterol Tartrate 2 puff INHALATION Q6HR PRN 07/12/22 07/19/22 Unknown History [Levalbuterol Tartrate Hfa] amLODIPine 10 mg PO DAILY 07/12/22 07/19/22 Unknown History carvediloL [Coreg] 25 mg PO BID 07/12/22 07/19/22 Unknown History cloNIDine [Catapres] 0.1 mg PO Q8H 07/12/22 07/19/22 Unknown History HYDROcodone/APAP 5-325 [[place] 1 - 2 each PO Q6HR PRN #10 tablet 07/25/22 Unknown Rx 5-325 mg TAB] Nicotine [Habitrol] 14 mg TD QDAY #30 patch 08/02/22 Unknown Rx sotaloL [Betapace] 80 mg PO Q12HR #60 tablet 08/02/22 Unknown Rx Active Medications: Generic Name Dose Route Start Last Admin Trade Name Freq PRN Reason Stop Dose Admin Acetaminophen 650 mg 07/29/22 21:50 Acetaminophen 325 Mg Tab PO Q6H PRN Pain, Mild (1-3) Amlodipine Besylate 10 mg 07/30/22 10:00 08/01/22 09:05 Amlodipine 10 Mg Tab PO Not Given DAILY [facility] Apixaban 2.5 mg 07/30/22 10:00 08/01/22 22:16 Apixaban 2.5 Mg Tab PO 2.5 mg Q12HR [facility] Administration Aspirin 81 mg 07/30/22 10:00 08/01/22 09:03 Aspirin Ec 81 Mg Tab PO 81 mg QDAY [facility] Administration Atorvastatin Calcium 40 mg 07/29/22 22:00 08/01/22 22:16 Atorvastatin 40 Mg Tab PO 40 mg QHS [facility] Administration Carvedilol 25 mg 07/29/22 22:00 08/01/22 16:24 Carvedilol 25 Mg Tab PO 25 mg BID@0800,1700 [facility] Administration Clonidine HCl 0.1 mg 07/29/22 22:00 08/02/22 05:57 Clonidine 0.1 Mg Tab PO 0.1 mg Q8H [facility] Administration Dextrose 0 ml 07/29/22 21:50 Dextrose 50% In Water (25gm) 50 Ml Syringe IV Q30MIN PRN Hypoglycemia Protocol Epoetin Heladio-epbx 20,000 unit 07/30/22 17:00 07/30/22 18:00 Epoetin Heladio-Epbx 10,000 Unit/1 Ml Vial SUB-Q 20,000 unit [facility]LENE PRN Administration HEMODIALYSIS Gabapentin 100 mg 07/29/22 22:00 08/01/22 22:16 Gabapentin 100 Mg Cap PO 100 mg BID [facility] Administration Heparin Sodium (Porcine) 3,000 unit 07/30/22 11:45 Heparin 10,000 Units/10 Ml Vial IV KARLENE PRN hemodialysis Hydralazine HCl 50 mg 07/29/22 22:00 08/02/22 05:57 Hydralazine 25 Mg Tab PO 50 mg Q8HR [facility] Administration Sodium Chloride 100 mls @ 999 mls/hr 07/30/22 11:45 Nacl 0.9% IV [facility]E PRN Hypotension Insulin Human Lispro 0 unit 07/30/22 00:00 08/02/22 05:53 Insulin Lispro 100 Unit/Ml SUB-Q Not Given Q6HR [facility] Protocol Isosorbide Mononitrate 60 mg 07/30/22 10:00 08/01/22 09:05 Isosorbide Mononitrate Er 60 Mg Tab PO Not Given QDAY [facility] Levalbuterol HCl 1.25 mg 07/29/22 23:00 Levalbuterol 1.25 Mg/3 Ml Neb IH Q6HRT PRN wheezing Losartan Potassium 50 mg 07/30/22 10:00 08/01/22 09:05 Losartan 50 Mg Tab PO Not Given QDAY [facility] Methimazole 10 mg 07/30/22 08:00 08/01/22 22:15 Methimazole 5 Mg Tab PO 10 mg TID [facility] Administration Morphine Sulfate 2 mg 07/29/22 21:50 08/01/22 03:52 Morphine 2 Mg/1 Ml Inj IV 2 mg Q5MIN PRN Administration Chest Pain unrelieved by NTG Nicotine 14 mg 07/30/22 10:00 08/01/22 09:03 Nicotine 14 Mg/24 Hr Patch TD 14 mg QDAY [facility] Administration Nitroglycerin 0.4 mg 07/29/22 21:53 Nitroglycerin 0.4 Mg Tab Subl SL .Q5MIN PRN Chest Pain Pantoprazole Sodium 40 mg 07/30/22 10:00 08/01/22 09:03 Pantoprazole 40 Mg Tab PO 40 mg QDAY [facility] Administration Senna/Docusate Sodium 1 tab 07/30/22 10:00 08/01/22 09:03 Sennosides/Docusate Sodium 8.6/50 Mg Tab PO 1 tab DAILY [facility] Administration Sodium Chloride 10 ml 07/29/22 21:50 07/31/22 21:23 Sodium Chloride 0.9% 10 Ml Flush Syringe IV 10 ml PRN PRN Administration LINE FLUSH Sotalol HCl 80 mg 07/31/22 11:00 08/01/22 22:15 Sotalol 80 Mg Tab PO 80 mg Q12HR [facility] Administration Tramadol HCl 50 mg 07/29/22 21:50 08/02/22 05:57 Tramadol 50 Mg Tab PO 50 mg Q6H PRN Administration Pain, Moderate (4-6)
--- NOTE | 2022-08-02 09:03 | Progress Note ---
Assessment and Plan Assessment and plan: -- ACS (acute coronary syndrome) Admit the patient to the medical telemetry. Aspirin 81 mg p.o. daily. Eliquis 2.5 mg p.o. twice a day. Nitroglycerin as needed. Lipitor 40 mg p.o. daily. Serial cardiac enzymes. Echocardiogram. Cardiology evaluation -- End stage renal disease on dialysis Nephrology consulted Hemodialysis per schedule, avoid nephrotoxins Renal dosing of medications, closely monitor --Elevated troponin In the setting of end-stage renal disease, troponin probably is nonspecific However patient has multiple risk factors need to rule out acute coronary syndrome Follow cardiology evaluation recommendations, follow echocardiogram and LV ejection fraction --Paroxysmal atrial fibrillation flutter episodes on the monitor Converted back to sinus rhythm Patient is on amiodarone, carvedilol, cardiology following -Atrial fibrillation; rate controlled Broach Setter DC'd 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 Continue beta-blockers, Cardiology following chronic anticoagulation with Eliquis, follow echocardiogram findings -- CHF (congestive heart failure) unknown ejection fraction Fluid restriction. Daily weight. Maintain input output. Echocardiogram. Continue home medication. Cardiology evaluation LVEF 50 to 55%[from cardiology notes in the past] --COPD (chronic obstructive pulmonary disease) chronic Oxygen via nasal catheter per minute. DuoNeb via nebulizer every 4 hours. Albuterol via nebulizer every 4 hours as needed --Hypertension moderate control Amlodipine 10 mg p.o. daily. Coreg 25 mg p.o. twice daily. Clonidine 0.1 mg p.o. every 8 hours As needed hydralazine --Hyperthyroidism Methimazole 10 mg p.o. 3 times daily. Outpatient follow-up with airplane charter clerk. --T2DM (type 2 diabetes mellitus) Accu-Chek every 6 hours with Humalog moderate dose coverage. Diabetic education. Continue home medication --Tobacco abuse We will counseled the patient regarding quitting smoking. We put the patient on nicotine patch Smoking cessation counseling; --DVT prophylaxis Eliquis 2.5 mg p.o. twice daily for DVT prophylaxis. Protonix 40 mg p.o. daily for GI prophylaxis. Patient is a full code Closely monitor the patient and adjust management as needed Plan of care reviewed with the patient and her nurse Cardiology evaluation and recommendations noted and appreciated 07/31/2022; this morning patient went into paroxysmal A. fib flutter Later converted to sinus rhythm, patient did not have any symptoms Cardiology following Hospitalist Physical - Constitutional Vitals: Temp Pulse Resp BP Pulse Ox 98.5 F 73 19 115/64 100 08/02/22 03:10 08/02/22 03:10 08/02/22 03:10 08/02/22 03:10 08/02/22 03:10 General appearance: Present: no acute distress, well-nourished HEART Score - HEART Score EKG: Non-specific Age: > 65 Risk factors: > 3 risk factors or hx of atherosclerotic disease Troponin: Troponin T 0.089 ng/mL (0.00-0.029) H 07/30/22 03:52 Troponin: 1-3x normal limit Results - Labs CBC & Chem 7: 08/01/22 04:23 08/01/22 04:23 Labs: Laboratory Last Values WBC 9.2 K/mm3 (4.5-11.0) 08/01/22 04:23 RBC 2.78 M/mm3 (3.65-5.03) L 08/01/22 04:23 Hgb 8.7 gm/dl (10.1-14.3) L 08/01/22 04:23 Hct 26.7 % (30.3-42.9) L 08/01/22 04:23 MCV 96 fl (79-97) 08/01/22 04:23 MCH 31 pg (28-32) 08/01/22 04:23 MCHC 33 % (30-34) 08/01/22 04:23 RDW 19.9 % (13.2-15.2) H 08/01/22 04:23 Plt Count 188 K/mm3 (140-440) 08/01/22 04:23 Lymph % (Auto) 17.6 % (13.4-35.0) 08/01/22 04:23 [place] % (Auto) 7.9 % (0.0-7.3) H 08/01/22 04:23 Eos % (Auto) 2.8 % (0.0-4.3) 08/01/22 04:23 Baso % (Auto) 0.6 % (0.0-1.8) 08/01/22 04:23 Lymph # (Auto) 1.6 K/mm3 (1.2-5.4) 08/01/22 04:23 [place] # (Auto) 0.7 K/mm3 (0.0-0.8) 08/01/22 04:23 Eos # (Auto) 0.3 K/mm3 (0.0-0.4) 08/01/22 04:23 Baso # (Auto) 0.1 K/mm3 (0.0-0.1) 08/01/22 04:23 Seg Neutrophils % 71.1 % (40.0-70.0) H 08/01/22 04:23 Seg Neutrophils # 6.5 K/mm3 (1.8-7.7) 08/01/22 04:23 Sodium 132 mmol/L (137-145) L D 08/01/22 04:23 Potassium 4.4 mmol/L (3.6-5.0) 08/01/22 04:23 Chloride 93.2 mmol/L (98-107) L 08/01/22 04:23 Carbon Dioxide 28 mmol/L (22-30) 08/01/22 04:23 Anion Gap 15 mmol/L 08/01/22 04:23 BUN 29 mg/dL (7-17) H 08/01/22 04:23 Creatinine 4.0 mg/dL (0.6-1.2) H 08/01/22 04:23 Estimated GFR 14 ml/min 08/01/22 04:23 BUN/Creatinine Ratio 7 % 08/01/22 04:23 Glucose 100 mg/dL (65-100) 08/01/22 04:23 POC Glucose 123 mg/dL (70-105) H 08/02/22 05:03 Calcium 8.5 mg/dL (8.4-10.2) 08/01/22 04:23 Total Bilirubin 1.20 mg/dL (0.1-1.2) 07/29/22 17:58 AST 21 units/L (5-40) 07/29/22 17:58 ALT 9 units/L (7-56) 07/29/22 17:58 Alkaline Phosphatase 69 units/L (35-129) 07/29/22 17:58 Troponin T 0.089 ng/mL (0.00-0.029) H 07/30/22 03:52 Total Protein 6.4 g/dL (6.3-8.2) 07/29/22 17:58 Albumin 4.4 g/dL (3.9-5) 07/29/22 17:58 Albumin/Globulin Ratio 2.2 % 07/29/22 17:58 Triglycerides 91 mg/dL (2-149) 07/30/22 03:52 Cholesterol 144 mg/dL (50-199) 07/30/22 03:52 LDL Cholesterol Direct 67 mg/dL (50-130) 07/30/22 03:52 HDL Cholesterol 65 mg/dL (40-59) H 07/30/22 03:52 Cholesterol/HDL Ratio 2.21 % 07/30/22 03:52 Hepatitis A IgM Ab Non-reactive (NonReactive) 07/30/22 15:40 Hep Bs Antigen Non-reactive (Negative) 07/30/22 15:40 Hep B Core IgM Ab Non-reactive (NonReactive) 07/30/22 15:40 Hepatitis C Antibody Non-reactive (NonReactive) 07/30/22 15:40 [place]/IV: Voiding Method Toilet Active Medications - Current Medications Current Medications: Generic Name Dose Route Start Last Admin Trade Name Freq PRN Reason Stop Dose Admin Acetaminophen 650 mg 07/29/22 21:50 Acetaminophen 325 Mg Tab PO Q6H PRN Pain, Mild (1-3) Amlodipine Besylate 10 mg 07/30/22 10:00 08/01/22 09:05 Amlodipine 10 Mg Tab PO Not Given DAILY [facility] Apixaban 2.5 mg 07/30/22 10:00 08/01/22 22:16 Apixaban 2.5 Mg Tab PO 2.5 mg Q12HR CHRISTEL Administration Aspirin 81 mg 07/30/22 10:00 08/01/22 09:03 Aspirin Ec 81 Mg Tab PO 81 mg QDAY CHRISTEL Administration Atorvastatin Calcium 40 mg 07/29/22 22:00 08/01/22 22:16 Atorvastatin 40 Mg Tab PO 40 mg QHS CHRISTEL Administration Carvedilol 25 mg 07/29/22 22:00 08/01/22 16:24 Carvedilol 25 Mg Tab PO 25 mg BID@0800,1700 CHRISTEL Administration Clonidine HCl 0.1 mg 07/29/22 22:00 08/02/22 05:57 Clonidine 0.1 Mg Tab PO 0.1 mg Q8H CHRISTEL Administration Dextrose 0 ml 07/29/22 21:50 Dextrose 50% In Water (25gm) 50 Ml Syringe IV Q30MIN PRN Hypoglycemia Protocol Epoetin Heladio-epbx 20,000 unit 07/30/22 17:00 07/30/22 18:00 Epoetin Heladio-Epbx 10,000 Unit/1 Ml Vial SUB-Q 20,000 unit KARLENE PRN Administration HEMODIALYSIS Gabapentin 100 mg 07/29/22 22:00 08/01/22 22:16 Gabapentin 100 Mg Cap PO 100 mg BID CHRISTEL Administration Heparin Sodium (Porcine) 3,000 unit 07/30/22 11:45 Heparin 10,000 Units/10 Ml Vial IV KARLENE PRN hemodialysis Hydralazine HCl 50 mg 07/29/22 22:00 08/02/22 05:57 Hydralazine 25 Mg Tab PO 50 mg Q8HR CHRISTEL Administration Sodium Chloride 100 mls @ 999 mls/hr 07/30/22 11:45 Nacl 0.9% IV KARLENE PRN Hypotension Insulin Human Lispro 0 unit 07/30/22 00:00 08/02/22 05:53 Insulin Lispro 100 Unit/Ml SUB-Q Not Given Q6HR [facility] Protocol Isosorbide Mononitrate 60 mg 07/30/22 10:00 08/01/22 09:05 Isosorbide Mononitrate Er 60 Mg Tab PO Not Given QDAY [facility] Levalbuterol HCl 1.25 mg 07/29/22 23:00 Levalbuterol 1.25 Mg/3 Ml Neb IH Q6HRT PRN wheezing Losartan Potassium 50 mg 07/30/22 10:00 08/01/22 09:05 Losartan 50 Mg Tab PO Not Given QDAY CHRISTEL Methimazole 10 mg 07/30/22 08:00 08/01/22 22:15 Methimazole 5 Mg Tab PO 10 mg TID [facility] Administration Morphine Sulfate 2 mg 07/29/22 21:50 08/01/22 03:52 Morphine 2 Mg/1 Ml Inj IV 2 mg Q5MIN PRN Administration Chest Pain unrelieved by NTG Nicotine 14 mg 07/30/22 10:00 08/01/22 09:03 Nicotine 14 Mg/24 Hr Patch TD 14 mg QDAY [facility] Administration Nitroglycerin 0.4 mg 07/29/22 21:53 Nitroglycerin 0.4 Mg Tab Subl SL .Q5MIN PRN Chest Pain Pantoprazole Sodium 40 mg 07/30/22 10:00 08/01/22 09:03 Pantoprazole 40 Mg Tab PO 40 mg QDAY CHRISTEL Administration Senna/Docusate Sodium 1 tab 07/30/22 10:00 08/01/22 09:03 Sennosides/Docusate Sodium 8.6/50 Mg Tab PO 1 tab DAILY CHRISTEL Administration Sodium Chloride 10 ml 07/29/22 21:50 07/31/22 21:23 Sodium Chloride 0.9% 10 Ml Flush Syringe IV 10 ml PRN PRN Administration LINE FLUSH Sotalol HCl 80 mg 07/31/22 11:00 08/01/22 22:15 Sotalol 80 Mg Tab PO 80 mg Q12HR CHRISTEL Administration Tramadol HCl 50 mg 07/29/22 21:50 08/02/22 05:57 Tramadol 50 Mg Tab PO 50 mg Q6H PRN Administration Pain, Moderate (4-6) Nutrition/Malnutrition Assess - Dietary Evaluation Nutrition/Malnutrition Findings: Nutrition Notes Start: 07/30/22 10:53 Freq: Status: Active Protocol: Document 07/30/22 10:53 CM (Rec: 07/30/22 11:06 CM [id number]) Co-Sign 07/30/22 10:53 WW Nutrition Notes Need for Assessment generated from: MD Order,Education Initial or Follow up Assessment Current Diagnosis CKD (stage V CKD),COPD, Diabetes,Hypertension,Heart Failure,Stroke,Hyperlipidemia Other Pertinent Diagnosis GERD, ACS, hyperthyroidism Current Diet Renal Diet Labs/Tests 07/30: BUN 30 Cr 3.9 Pertinent Medications 07/30: Atorvastatin Humalog Height 5 ft 5 in Weight 54.43 kg Usual Body Weight 54.5 kg [place] Body Weight (kg) 56.81 BMI 20.0 Intake Prior to Admission Good Weight change and time frame No unintentional wt loss DIRECTOR TRAFFIC AND PLANNING per malnutrition screening tool assessment and patient. Weight Status Underweight Subjective/Other Information RD consult for diet education. Pt reported receiving diet education from dietitian at dialysis clinic - could not recall information provided. Provided verbal explanation and educational handouts regarding renal diet. Pt reported intermittent decreases in appetite and hadn 't eaten in 2 days DIRECTOR TRAFFIC AND PLANNING. Nutrition-focused physical examination performed indicating severe muscle wasting - mild malnutrition. Last BM reported was yesterday - denied diarrhea. No physical assessment available at this time. Percent of energy/protein needs met: Renal Diet provides 2072kcal/ 77g PRO q day (108%/100%) Burn Absent Trauma Absent GI Symptoms None Food Allergy No Skin Integrity/Comment N/A Minimum of two criteria No Muscle Mass Moderate Depletion (severe) Fluid Accumulation N/A Reduced Circle Edger Strength N/A (non-severe) Protein-Calorie Malnutrition N\A #2 Nutrition Diagnosis Food and nutrition-related knowledge deficit Etiology Lack of diet education retention As Evidenced by Signs and Symptoms Pt inability to recall information from previous diet education #1 Nutrition Diagnosis Malnutrition Comments: Mild malnutrition in setting of chronic illness Etiology ESRD on HD As Evidenced by Signs and Symptoms Severe muscle wasting (temples , anterior thigh, calves, patellar), underweight BMI for advanced age Is patient on ventilator? No Is Patient Ambulatory and/or Out of Bed Yes REE-([place]-St. Jeor-ambulatory/OOB) [ 1404.234 [id number]] Kcal/Kg value to use for calculation 35 Approximate Energy Requirements Using 1905 kcal/Kg Calculation Used for Recommendations Kcal/kg Additional Notes Protein: 1.2-1.5g/kg; 65-82g PRO q day Fluid: 500mL + total ouput or per MD Nutrition Intervention Change Diet Order: Continue renal diet Add Supplement/Snack (indicate name/kcal [place] (Variety) BID /protein ) Provides kCal: 850 Provides Protein (gm) 38 Teaching Methods Discussion,Handout Response to Teaching Verbalize understanding Education Handouts Provided NCM - Potassium / Phosphorus Content of Foods / CKD Stage 3 -5 Nutrition Therapy Barriers to Learning No Barriers RD phone number provided Yes Patient aware of follow up options Yes Goal #1 Pt to consume >75% of estimated energy/protein needs through current diet order / supplementation Goal #2 Pt to maintain current wt status within 2.5% during LOS with exception of fluid loss/ retention Goal #3 Pt to retain and recall 2 pieces of information from diet education. Follow-Up By: 08/02/22 Additional Comments Monitor %PO intake, wt status, nutrition-related lab values, need for further diet education.
--- NOTE | 2022-08-02 09:04 | Discharge Summary ---
Providers - Providers Date of Admission: 07/29/22 21:51 Date of discharge: 08/02/22 Attending physician: DOMI CASTLE 07/29/22 Consult to Cardiac Rehabilitation [CONS] Routine Reason For Exam: Phase I 07/29/22 21:51 Consult to Cardiology [CONS] Routine Consulting Provider: DEV BROWN Reason For Exam: acs Consult to Dietitian/Nutrition [CONS] Routine Physician Instructions: Reason For Exam: Reason for Consult: Diet education 07/29/22 22:24 Consult to Physician [CONS] Routine Comment: Consulting Provider: SEBAS DELGADO Physician Instructions: Reason For Exam: esrd Primary care physician: SERINA CALDWELL Hospitalization Reason for admission: Chest pain Condition: Stable Pertinent studies: Chest x-ray Hospital course: -- ACS (acute coronary syndrome) Admit the patient to the medical telemetry. Aspirin 81 mg p.o. daily. Eliquis 2.5 mg p.o. twice a day. Nitroglycerin as needed. Lipitor 40 mg p.o. daily. Serial cardiac enzymes. Echocardiogram. Cardiology evaluation -- End stage renal disease on dialysis Nephrology consulted Hemodialysis per schedule, avoid nephrotoxins Renal dosing of medications, closely monitor --Elevated troponin In the setting of end-stage renal disease, troponin probably is nonspecific However patient has multiple risk factors need to rule out acute coronary syndrome Follow cardiology evaluation recommendations, follow echocardiogram and LV ejection fraction --Paroxysmal atrial fibrillation flutter episodes on the monitor Converted back to sinus rhythm Patient is on amiodarone, carvedilol, cardiology following -Atrial fibrillation; rate controlled 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 Continue beta-blockers, Cardiology following chronic anticoagulation with Eliquis, follow echocardiogram findings -- Acute on chronic diastolic CHF (congestive heart failure) LVEF 50 to 55% Fluid restriction. Daily weight. Maintain input output. Echocardiogram. Continue home medication. Cardiology evaluation LVEF 50 to 55%[from cardiology notes in the past] --COPD (chronic obstructive pulmonary disease) well compensated Oxygen via nasal catheter per minute. DuoNeb via nebulizer every 4 hours. Albuterol via nebulizer every 4 hours as needed --Hypertension moderate control Amlodipine 10 mg p.o. daily. Coreg 25 mg p.o. twice daily. Clonidine 0.1 mg p.o. every 8 hours As needed hydralazine --Hyperthyroidism Methimazole 10 mg p.o. 3 times daily. Outpatient follow-up with wind turbine performance engineer. --T2DM (type 2 diabetes mellitus) Accu-Chek every 6 hours with Humalog moderate dose coverage. Diabetic education. Continue home medication --Tobacco abuse We will counseled the patient regarding quitting smoking. We put the patient on nicotine patch Smoking cessation counseling; Disposition: 06 HOME HEALTH CARE SERVICE Final Discharge Diagnosis (Prints w/discharge instructions): Acute coronary syndrome. End-stage renal disease on hemodialysis. Elevated troponin. Paroxysmal atrial fibrillation and flutter. Atrial fibrillation rate controlled. Acute on chronic diastolic congestive heart failure. COPD well compensated. Hypertension. Hyperthyroidism. Type 2 diabetes mellitus. Ongoing tobacco use Time spent for discharge: 35 minutes Core Measure Documentation - Palliative Care Palliative Care/ Comfort Measures: Not Applicable - Core Measures Any of the following diagnoses?: none Exam - Constitutional Vitals: Temp Pulse Resp BP Pulse Ox 98.5 F 73 19 115/64 100 08/02/22 03:10 08/02/22 03:10 08/02/22 03:10 08/02/22 03:10 08/02/22 03:10 General appearance: Present: no acute distress, well-nourished - EENT Eyes: Present: PERRL, EOM intact - Neck Neck: Present: supple, normal ROM - Respiratory Respiratory effort: normal Respiratory: bilateral: diminished, negative: rales, rhonchi, wheezing - Cardiovascular Rhythm: regular Heart Sounds: Present: S1 & S2 - Extremities Extremities: no ischemia, No edema - Abdominal General gastrointestinal: Present: soft, non-tender, non-distended, normal bowel sounds - Integumentary Integumentary: Present: clear, warm - Musculoskeletal Musculoskeletal: strength equal bilaterally, generalized weakness - Psychiatric Psychiatric: appropriate mood/affect, cooperative - Neurologic Neurologic: moves all extremities Plan Activity: advance as tolerated, fall precautions Diet: other (Cardiac diet as tolerated) Additional Instructions: If you have worsening symptoms contact MD or go to the nearest emergency room as needed. Follow renal and hemodialysis per schedule TTS. Strongly advised to comply with medications diet follow-up visits. Advised to follow with your primary care physician in 1 week. Advised to follow your private racecar driver in 1 to 2 weeks Follow up with: DEV BROWN MD [Staff Physician] - 14 Days SERINA CALDWELL MD [Primary Care Provider] - 7 Days SEBAS DELGADO MD [Staff Physician] - 7 Days Prescriptions: sotaloL [Betapace] 80 mg PO Q12HR #60 tablet Nicotine [Habitrol] 14 mg TD QDAY #30 patch
[2022-08-02] MEDS: NICOTINE 14 MG/24 HR PATCH TD SCH (09:26)
[2022-08-02] MEDS: SENNOSIDES/DOCUSATE SODIUM 8.6/50 MG TAB PO SCH (09:27)
[2022-08-02] MEDS: ASPIRIN EC 81 MG TAB PO SCH (09:27)
[2022-08-02] MEDS: amLODIPine 10 MG TAB PO SCH (09:27)
[2022-08-02] MEDS: APIXABAN 2.5 MG TAB PO SCH (09:27)
[2022-08-02] MEDS: LOSARTAN 50 MG TAB PO SCH (09:27)
[2022-08-02] MEDS: carvediloL 25 MG TAB PO SCH (09:27)
[2022-08-02] MEDS: PANTOPRAZOLE 40 MG TAB PO SCH (09:27)
[2022-08-02] MEDS: methIMAzole 5 MG TAB PO SCH ×2 (09:27→14:40)
[2022-08-02] MEDS: GABAPENTIN 100 MG CAP PO SCH (09:35)
--- NOTE | 2022-08-02 13:47 | Progress Note ---
Assessment and Plan - Patient Problems (1) Paroxysmal atrial fibrillation Current Visit: Yes Status: Acute Plan to address problem: Patient has recurrent admissions for palpitations due to paroxysms of atrial fibrillation. We have switched antiarrhythmic therapy from amiodarone to sotalol. We will perform a twelve-lead ECG for QT interval on sotalol, otherwise anticipate discharge today. Subjective Date of service: 08/02/22 Principal diagnosis: Symptomatic atrial flutter fibrillation Interval history: Patient is comfortable, looks and feels well, no acute distress. No new cardiac events reported. Objective Vital Signs Temp Pulse Resp BP BP Pulse Ox 08/02/22 11:11 98.0 F 70 18 108/62 100 08/02/22 10:00 71 18 100 08/02/22 07:26 98.4 F 71 18 109/67 100 08/02/22 03:10 98.5 F 73 19 115/64 100 08/02/22 00:53 99.1 F 71 18 99/63 96 08/01/22 22:00 18 3 L 08/01/22 19:12 98.4 F 70 18 124/63 100 08/01/22 15:17 98.0 F 70 18 112/63 100 08/01/22 13:55 98.0 F 70 18 110/61 100 - Physical Examination General: No Apparent Distress HEENT: Positive: PERRL Neck: Positive: neck supple Cardiac: Positive: Reg Rate and Rhythm Lungs: Positive: Decreased Breath Sounds Neuro: Positive: Grossly Intact Abdomen: Positive: Soft Skin: Positive: Clear Extremities: Absent: edema
[2022-08-02 16:42] VITALS: BP 107/64
--- NOTE | 2022-08-03 11:47 | Electrocardiograph Report ---
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
== END 2022-08-02 17:00 | disposition home health service (06) | DRG 291 ==
LOC: ED 16:42 → 4A 21:51
PROVIDERS: ADMIT Hospitalist; ATTEND Internal Medicine
PROC: 5A1D70Z Performance of Urinary Filtration, Intermittent, Less than 6 Hours Per Day (ICD-10-PCS; principal; 2022-07-30)
PROC: 5A1D70Z Performance of Urinary Filtration, Intermittent, Less than 6 Hours Per Day (ICD-10-PCS; 2022-08-01)
DX: I13.2 Hypertensive heart and chronic kidney disease with heart failure and with stage 5 chronic kidney disease, or end stage renal disease (principal); I50.33 Acute on chronic diastolic (congestive) heart failure; N18.6 End stage renal disease; I24.9 Acute ischemic heart disease, unspecified; I69.351 Hemiplegia and hemiparesis following cerebral infarction affecting right dominant side; I48.92 Unspecified atrial flutter; I48.0 Paroxysmal atrial fibrillation; Z99.2 Dependence on renal dialysis; J44.9 Chronic obstructive pulmonary disease, unspecified; F31.9 Bipolar disorder, unspecified; E78.00 Pure hypercholesterolemia, unspecified; I25.2 Old myocardial infarction; K21.9 Gastro-esophageal reflux disease without esophagitis; F20.9 Schizophrenia, unspecified; F17.200 Nicotine dependence, unspecified, uncomplicated; E05.90 Thyrotoxicosis, unspecified without thyrotoxic crisis or storm; Z79.82 Long term (current) use of aspirin; Z79.899 Other long term (current) drug therapy; R77.8 Other specified abnormalities of plasma proteins; Z83.3 Family history of diabetes mellitus; Z95.0 Presence of cardiac pacemaker; Z82.49 Family history of ischemic heart disease and other diseases of the circulatory system; Z91.041 Radiographic dye allergy status; Z91.013 Allergy to seafood; Z91.018 Allergy to other foods
CPT/HCPCS: 36415; 71045; 80048; 80053; 80061; 80074; 82962; 84484; 85025; 93005; 94760; 96372; 96374; 96376; 99285; G0378; Q9967; J0885; J1815; J2250; J2270; J3486